=== PATIENT | male | born 1955 | race Caucasian/White ===

== ENCOUNTER 2020-05-30 07:58 | Outpatient (CLI) | payer MEDICARE, SELFPAY ==
[2020-05-30 08:35] LABS: Alanine Aminotransferase 11 U/L (4-50); Albumin Level 4.7 g/dL (3.5-5.1); Alkaline Phosphatase 101 U/L (38-126); Anion Gap 5 mmol/L (8-16); Aspartate Amino Transferase 26 U/L (17-59); Bilirubin,Total 0.9 mg/dL (0.2-1.3); Blood Urea Nitrogen 13 mg/dL (9-20); Calcium 9.5 mg/dL (8.4-10.2); Carbon Dioxide 31 mmol/L (22-30); Chloride 101 mmol/L (98-107); Cholesterol 233 mg/dL (0-200); Estimated Glomerular Filt Rate > 60; Glucose 126 mg/dL (75-110); HDL Direct 60 mg/dL; Potassium 4.2 mmol/L (3.4-5.0); Sodium 137 mmol/L (137-145); Triglycerides 105 mg/dL (<150)
[2020-05-30 08:39] LABS: Hemoglobin A1C 5.6 % (<5.7)
[2020-05-30 08:45] LABS: LDL Cholesterol Direct 149 mg/dL
== END 2020-05-30 07:59 | disposition home or self-care (01) ==
PROVIDERS: PCP Emergency Medicine; Visit Provider Emergency Medicine
DX: E78.5 Hyperlipidemia, unspecified (principal); E11.9 Type 2 diabetes mellitus without complications
CPT/HCPCS: 36415; 80053; 80061; 83036

== ENCOUNTER 2021-01-02 07:04 | Outpatient (CLI) | payer MEDICARE, SELFPAY ==
[2021-01-02 07:56] LABS: Hemoglobin A1C 5.8 % (<5.7)
[2021-01-02 08:13] LABS: Alanine Aminotransferase 12 U/L (4-50); Alkaline Phosphatase 71 U/L (38-126); Anion Gap 2 mmol/L (8-16); Aspartate Amino Transferase 24 U/L (17-59); Bilirubin,Total 0.4 mg/dL (0.2-1.3); Blood Urea Nitrogen 17 mg/dL (9-20); Carbon Dioxide 33 mmol/L (22-30); Chloride 101 mmol/L (98-107); Cholesterol 191 mg/dL (0-200); Estimated Glomerular Filt Rate > 60; Glucose 112 mg/dL (75-110); HDL Direct 46 mg/dL; Potassium 4.1 mmol/L (3.4-5.0); Sodium 136 mmol/L (137-145); Triglycerides 106 mg/dL (<150)
[2021-01-02 08:24] LABS: LDL Cholesterol Direct 132 mg/dL
[2021-01-02 08:37] LABS: Prostate Specific Antigen 2.4 ng/mL (< OR = 4.0)
== END 2021-01-02 07:05 | disposition home or self-care (01) ==
PROVIDERS: PCP Emergency Medicine; Visit Provider Emergency Medicine
DX: Z12.5 Encounter for screening for malignant neoplasm of prostate (principal); E78.5 Hyperlipidemia, unspecified; E11.9 Type 2 diabetes mellitus without complications
CPT/HCPCS: 36415; 80053; 80061; 83036; 84153; G0103

== ENCOUNTER 2021-06-14 05:59 | Emergency (ER) | payer MEDICARE, SELFPAY ==
--- NOTE | 2021-06-14 07:30 | ED.SKABFB ---
HPI - Skin/Abscess/Foreign Bdy General Chief complaint: Skin/Abscess/Foreign Body Stated complaint: raised area on chest Time Seen by Provider: 06/14/21 07:00 History of Present Illness HPI narrative: Patient is a 65-year-old male who presents the ER with a lump to the center of his chest. Reports it is fluid-filled. Nonpainful. He has tried drying out the fluid with spread and poking it with a needle. No fevers or chills or sweats. It started after he was in the [place] and was covered in chigger bites. She is concerned that chigger may actually be inside his chest. Related Data Allergies Allergy/AdvReac Type Severity Reaction Status Date / Time Penicillins Allergy Unknown Verified 08/31/19 14:47 Review of Systems Constitutional: Constitutional: Denies chills and Denies fever(s) Musculoskeletal: Musculoskeletal: Denies arthralgias, Denies joint swelling and Denies muscle cramps Integumentary/Breasts: Skin/Breast: Reports erythema and Denies rash Comments: Abscess PMFSH Past Medical History Medical History (Updated 06/14/21 @ 08:05 by Dannie Martines MD) Hyperglycemia Hypertension Surgical History Surgical History (Updated 06/14/21 @ 07:35 by Dannie Martines MD) History of orthopedic surgery Right upper extremity reconstruction Family History Family History Mother Family history of diabetes mellitus in first degree relative Social History Social History Smoking status: Former smoker Alcohol intake: current Exam Narrative: GENERAL: Well-appearing, well-nourished, and in no acute distress. HEAD: Normocephalic, atraumatic. CHEST: Clear to auscultation. No respiratory distress. HEART: Regular rate and rhythm. Normal peripheral pulses. EXTREMITIES: Chronic deformity RUE with decreased ROM at elbow and thumb from previous trauma/surgery. No edema. SKIN: Warm, dry. 1.5 x 1.5 abscess center chest that is fluctuant without significant surrounding cellulitis. NEURO: Alert and oriented x3. PSYCH: Normal mood and affect. Procedures Abscess I/D chest: Date of Incision: 06/14/21 Time of Incision: 07:58 Local Anesthetic: lidocaine 1% and with epi Amount of anesthesia used (mL): 2 Technique: incised with #11 blade Irrigation: No Packing used?: iodoform I&D Results: Pus Discharge Plan Discharge Clinical Impression: Abscess Patient Disposition: Home, Self-Care Condition: Stable Instructions: Abscess (ED) Additional Instructions: Return the ER if you have fever over 100.4 ?F, you have worsening infection, you cannot keep down food or water, you have additional concerns. Remove your packing in 2 days. Prescriptions: New doxycycline monohydrate 100 mg capsule 100 mg PO BID Qty: 14 RF: 0 No Action metoprolol succinate 25 mg tablet extended release 24 hr 25 mg PO DAILY Qty: 90 RF: 2 lisinopril-hydrochlorothiazide 20-12.5 mg tablet See Rx Instructions .ROUTE .COMPLEX Qty: 180 RF: 2 Follow-up/Referrals: Zia Francisco MD [Primary Care Provider] -
[2021-06-14] MEDS: LIDO 1%/EPINEPHRINE 1:100,000 10 ML VIAL 3 ML INFILTRATE (07:43)
== END 2021-06-14 08:14 | disposition home or self-care (01) ==
PROVIDERS: Emergency Provider Emergency Medicine; PCP Emergency Medicine
DX: L02.213 Cutaneous abscess of chest wall (principal); I10 Essential (primary) hypertension; Z87.891 Personal history of nicotine dependence
CPT/HCPCS: 10061; 99283

== ENCOUNTER 2021-07-30 06:57 | Outpatient (CLI) | payer MEDICARE, SELFPAY ==
[2021-07-30 07:53] LABS: Alanine Aminotransferase 11 U/L (4-50); Albumin Level 4.5 g/dL (3.5-5.1); Alkaline Phosphatase 79 U/L (38-126); Anion Gap 7 mmol/L (8-16); Aspartate Amino Transferase 21 U/L (17-59); Bilirubin,Total 0.8 mg/dL (0.2-1.3); Blood Urea Nitrogen 15 mg/dL (9-20); Calcium 9.9 mg/dL (8.4-10.2); Carbon Dioxide 31 mmol/L (22-30); Chloride 100 mmol/L (98-107); Estimated Glomerular Filt Rate > 60; Glucose 124 mg/dL (65-110); Potassium 4.1 mmol/L (3.4-5.0); Sodium 138 mmol/L (137-145)
[2021-07-30 07:56] LABS: Hemoglobin A1C 5.6 % (<5.7)
== END 2021-07-30 06:58 | disposition home or self-care (01) ==
PROVIDERS: PCP Emergency Medicine; Visit Provider Emergency Medicine
DX: I10 Essential (primary) hypertension (principal); R73.9 Hyperglycemia, unspecified
CPT/HCPCS: 36415; 80053; 83036

== ENCOUNTER 2021-12-31 00:19 | Day surgery (SDC) | payer MEDICARE, SELFPAY ==
[2021-12-17 09:14] VITALS: BMI 25.5
[2021-12-31 07:45] VITALS: BP 140/84; PULSE 78; RESP 20; TEMP 36.6; O2SAT 99; BMI 24.7
[2021-12-31] MEDS: LACTATED RINGERS 1,000 ML 150 ML IV CONT (07:53)
--- NOTE | 2021-12-31 08:07 | P.PNAN_ITS ---
Anes - Initial Pre Proc Eval Procedure: Operation Date: 12/31/21 08:30 Proposed Procedures p Screening Colonoscopy - Brad Villeda MD Date/Time: 12/31/21 08:07 Surgeon: Brad Villeda MD Pre Op Diagnosis: hx of colon polyps, family hx of colon ca Patient Data Age: 66 Gender: M Height: 1.7 m Weight: 71.5 kg Last Vital Signs Temp 36.6 C 12/31/21 07:45 Pulse 78 12/31/21 07:45 Resp 20 12/31/21 07:45 BP 140/84 12/31/21 07:45 Pulse Ox 99 12/31/21 07:45 Allergies Allergy/AdvReac Type Severity Reaction Status Date / Time Penicillins Allergy Unknown Anaphylaxis Verified 12/31/21 07:44 Home Medications Medication Instructions Recorded Confirmed Type sodium,potassium,mag sulfates 17.5 See Rx Instructions PO .COMPLEX 11/23/21 Rx gram-3.13 gram-1.6 gram oral soln #354 ml lisinopril-hydrochlorothiazide 2 tablet PO DAILY 12/17/21 12/17/21 History metoprolol succinate 25 mg 25 mg PO DAILY #90 tablet 12/25/21 12/31/21 Rx tablet,extended release 24 hr Patient hx anesthesia problems: none Family hx anesthesia problems: none Results Review: All pre-operative results and documents have been reviewed as part of the pre-operative evaluation. [facility] Past Medical History Medical History Hyperglycemia Hypertension Surgical History Surgical History History of orthopedic surgery Right upper extremity reconstruction Family History Family History Mother Family history of diabetes mellitus in first degree relative Sibling Carcinoma of colon Uterine cancer Social History Social History (Updated 12/31/21 @ 08:09 by Sylvester Sanchez MD) Smoking status: Former smoker Tobacco type: cigarettes Smoking end date: 08/15/02 Alcohol intake: former Substance use: current Substance use type: marijuana Other substance usage details: 3x weekly Living arrangements: with family Spiritual care concerns: No Anes - Eval Final PreProcedure Day of Procedure 12/31/21 08:07 Patient weight: normal Heart: regular rate and rhythm Lungs: clear to auscultation Airway: Mallampati scale class II Neurological: alert and oriented Last oral intake: >/= 8 hours ASA classification: II Emergent: no Anesthetic plan: proceed Anesthesia type and monitoring: general GIVS and standard monitoring Results Review: All pre-operative results and documents have been reviewed as part of the pre-operative evaluation. Informed Consent: The patient's anesthetic plan and its attendant risks and benefits were discussed with the patient/family/POA. Questions were solicited and answers provided to the satisfaction of the patient/family/POA.
--- NOTE | 2021-12-31 08:30 | WPDGICN ---
Assessment and Plan Assessment and plan (1) History of colon polyps: Code(s): Z86.010 - Personal history of colonic polyps Status: Acute Assessment and Plan: Patient has a prior history of adenomatous colon polyp removed from the colon 2015. Plan is for surveillance colonoscopy now and at 5 year intervals in the future. (2) Family hx of colon cancer: Code(s): Z80.0 - Family history of malignant neoplasm of digestive organs Status: Acute Assessment and Plan: Patient's sister had colon cancer for this reason continued surveillance of patient's colonoscopy is advised a 5 year intervals. GI Consult Note Consult date/time: 12/31/21 08:30 HPI: Giancarlo Clark Jr. is a 66 year old male Presents for screening colonoscopy. Patient's family history is significant that his sister had colon cancer. Patient reports a prior history of colon polyps most recently 2015. He presents today for screening colonoscopy. Patient's current weight appetite and bowel movements are normal. Patient denies abdominal pain. He has had no bleeding. He presents today for screening exam. Review of Systems Review of Systems: All systems reviewed & are unremarkable except as noted in HPI and below PMFSH Past Medical History Medical History Hyperglycemia Hypertension Surgical History Surgical History History of orthopedic surgery Right upper extremity reconstruction Family History Family History Mother Family history of diabetes mellitus in first degree relative Sibling Carcinoma of colon Uterine cancer Social History Social History (Updated 12/31/21 @ 08:09 by Sylvester Sanchez MD) Smoking status: Former smoker Tobacco type: cigarettes Smoking end date: 08/15/02 Alcohol intake: former Substance use: current Substance use type: marijuana Other substance usage details: 3x weekly Living arrangements: with family Spiritual care concerns: No Meds Home Medications and Allergies Home Medications Medication Instructions Recorded Confirmed Type sodium,potassium,mag sulfates 17.5 See Rx Instructions PO .COMPLEX 11/23/21 Rx gram-3.13 gram-1.6 gram oral soln #354 ml lisinopril-hydrochlorothiazide 2 tablet PO DAILY 12/17/21 12/17/21 History metoprolol succinate 25 mg 25 mg PO DAILY #90 tablet 12/25/21 12/31/21 Rx tablet,extended release 24 hr Allergies Allergy/AdvReac Type Severity Reaction Status Date / Time Penicillins Allergy Unknown Anaphylaxis Verified 12/31/21 07:44 Vital Signs Vital Signs - 24 hr 12/31/21 07:45 Temperature 97.9 F Pulse Rate 78 Respiratory Rate 20 Blood Pressure 140/84 Pulse Oximetry 99 Exam Narrative: Physical exam reveals patient to be alert. Vital signs stable. HEENT exam is unremarkable. Patient is anicteric. Lungs are clear to auscultation and percussion. Heart is without murmur or extra sounds. Abdominal exam bowel sounds present soft nontender with no organomegaly. Digital external rectal exam is normal.
[2021-12-31 09:05] VITALS: BP 80/48; PULSE 69; RESP 21; O2SAT 95
[2021-12-31 09:15] VITALS: BP 82/48; PULSE 65; RESP 19; O2SAT 96
[2021-12-31 09:25] VITALS: BP 120/75; PULSE 74; RESP 25; O2SAT 100
== END 2021-12-31 09:34 | disposition home or self-care (01) ==
PROVIDERS: PCP Emergency Medicine; Visit Provider Internal Medicine Gastroenterology
PROC: 0DJD8ZZ Inspection of Lower Intestinal Tract, Via Natural or Artificial Opening Endoscopic (ICD-10-PCS; CPT 45378; principal; 2021-12-31 08:30)
DX: Z12.11 Encounter for screening for malignant neoplasm of colon (principal); D12.5 Benign neoplasm of sigmoid colon; K63.5 Polyp of colon; K64.8 Other hemorrhoids; Z80.0 Family history of malignant neoplasm of digestive organs; I10 Essential (primary) hypertension; Z87.891 Personal history of nicotine dependence; F12.90 Cannabis use, unspecified, uncomplicated
CPT/HCPCS: 45385; 88305; J2704; J7120

== ENCOUNTER 2022-09-30 12:06 | Outpatient (CLI) | payer MEDICARE, SELFPAY ==
--- NOTE | ~2022-09-30 | US_ITS ---
US renal BI 09/30/2022 12:59 Procedure: Realtime transabdominal ultrasound of the kidneys and bladder. Indication: Dysuria Comparison: Dysuria Findings: Renal echotexture is normal bilaterally without hydronephrosis, contour deforming mass or r enal calculus. The right kidney measures 10.8 cm and left kidney measures 11.5 cm cm. Bladder within normal limits. Bilateral ureteral jets are visualized. Prostate gland is enlarged. Impression: 1: Unremarkable renal ultrasound. No stones, masses or hydronephrosis. Reviewed, dictated and finalized at location A. [employer] Impression: 1: Unremarkable renal ultrasound. No stones, masses or hydronephrosis.
== END 2022-09-30 12:07 | disposition home or self-care (01) ==
PROVIDERS: PCP Emergency Medicine; Visit Provider Nurse Practitioner
DX: R30.0 Dysuria (principal)
CPT/HCPCS: 76775

== ENCOUNTER 2023-05-18 04:37 | Emergency (ER) | payer MEDICARE, SELFPAY ==
--- NOTE | ~2023-05-18 | XR_ITS ---
EXAMINATION: XR forearm RT 2V INDICATION: Right forearm pain TECHNIQUE: Two views of the right forearm are obtained. COMPARISON: None available FINDINGS: There are old healed fractures of the distal radius and ulna. 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 No definite acute fracture is identified. IMPRESSION: 1. Prior fractures as detailed above without acute osseous abnormality identified. Reviewed, dictated and finalized at location A. IMPRESSION: 1. Prior fractures as detailed above without acute osseous abnormality identifi ed.
--- NOTE | ~2023-05-18 | XR_ITS ---
EXAMINATION: XR elbow RT min 3V INDICATION: Right elbow pain TECHNIQUE: Three views of the right elbow are obtained. COMPARISON: None available FINDINGS: There is marked, chronic appearing deformity of the elbow. There is a chronic fracture of t he medial condyle of the distal humerus with nonunion. There is heterotopic bone formation near the d istal humerus and proximal ulna. There is moderate to severe osteoarthritis. No definite acute fractu re is identified. IMPRESSION: 1. 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 Chronic appearing defo rmity of the elbow without acute osseous abnormality identified. Reviewed, dictated and finalized at location A. IMPRESSION: 1. 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 Chronic appearing deformity of the elbow without acute osseous abnormality iden tified.
[2023-05-18 04:41] VITALS: BP 193/84; PULSE 80; RESP 19; TEMP 36.4; O2SAT 99
[2023-05-18] MEDS: HYDROcodone/acetaminophen (*CRX) 5-325 MG TABLET 1 TAB PO (07:54)
--- NOTE | 2023-05-18 08:30 | ED.GENADULT ---
HPI - General Adult General Chief complaint: Extremity Injury, Upper Stated complaint: Right arm injury Time Seen by Provider: 05/18/23 07:01 History of Present Illness HPI narrative: Patient is a 67-year-old male who presents ER with right elbow injury. Patient tripped over a hose last night and fell forward onto his arms bilaterally. Patient has history of chronic deformity of the right arm due to a previous workplace injury. He has new pain and swelling to his right elbow. He is unable to perform supination and pronation without pain. No numbness or tingling. He did not strike his head or lose consciousness. Related Data Allergies Allergy/AdvReac Type Severity Reaction Status Date / Time Penicillins Allergy Unknown Anaphylaxis Verified 05/18/23 04:44 Review of Systems Constitutional: Constitutional: Reports no additional constitutional complaints Musculoskeletal: Musculoskeletal: Denies back pain, Denies myalgias, Reports arthralgias, Reports joint swelling and Denies muscle cramps Integumentary/Breasts: Skin/Breast: Reports system reviewed and no additional complaints, except as docu Neurologic: Reports system reviewed and no additional complaints, except as documented PMFSH Past Medical History Medical History Hyperglycemia Hypertension Surgical History Surgical History History of orthopedic surgery Right upper extremity reconstruction Family History Family History Mother Family history of diabetes mellitus in first degree relative Sibling Carcinoma of colon Uterine cancer Social History Social History (Updated 12/31/21 @ 08:09 by Sylvester Sanchez MD) Smoking status: Former smoker Tobacco type: cigarettes Smoking end date: 08/15/02 Alcohol intake: former Substance use: current Substance use type: marijuana Other substance usage details: 3x weekly Living arrangements: with family Spiritual care concerns: No Exam Narrative: GENERAL: Well-appearing, well-nourished, and in no acute distress. HEAD: Normocephalic, atraumatic. ENT: Mucous membranes moist. HEART: Regular rate and rhythm. Normal peripheral pulses. EXTREMITIES: Right upper extremity exam with tenderness at the radial head and posterior olecranon region. Mild edema. There is diffuse scarring from previous surgeries. Patient reports his range of motion at the elbow is always limited. Unable to fully extend at the elbow and cannot perform supination/pronation due to pain and limited mobility. SKIN: Warm, dry, no rash. NEURO: No numbness right upper extremity. Alert and oriented x3. PSYCH: Normal mood and affect. Course Vital Signs Vital signs: Vital Signs Temperature 97.5 F L 05/18/23 04:41 Pulse Rate 80 05/18/23 04:41 Respiratory Rate 19 05/18/23 04:41 Blood Pressure 193/84 H 05/18/23 04:41 Pulse Oximetry 99 05/18/23 04:41 Oxygen Delivery Room Air 05/18/23 04:41 Temperature 97.5 F L 05/18/23 04:41 Pulse Rate 80 05/18/23 04:41 Respiratory Rate 19 05/18/23 04:41 Blood Pressure 193/84 H 05/18/23 04:41 Pulse Oximetry 99 05/18/23 04:41 Oxygen Delivery Room Air 05/18/23 04:41 Medical Decision Making [facility] Narrative Medical decision making narrative: -Presentation: 67-year-old male with right elbow pain -DDX includes but is not limited to: Fracture, sprain, joint effusion -Co-morbidities complicating care: Previous surgical pair to the affected extremity -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 -Discussion of Management/Consultants: none -Dx tests considered but not ordered: none -Procedures: none -Interventions: Sling, Locust. -Share
[2023-05-18 09:53] VITALS: BP 164/88; PULSE 82; RESP 16; TEMP 36.8; O2SAT 98
== END 2023-05-18 09:54 | disposition home or self-care (01) ==
PROVIDERS: Emergency Provider Emergency Medicine; PCP Emergency Medicine
DX: S53.401A Unspecified sprain of right elbow, initial encounter (principal); I10 Essential (primary) hypertension; Z87.891 Personal history of nicotine dependence; S42.461 Displaced fracture of medial condyle of right humerus; X58.XXXD Exposure to other specified factors, subsequent encounter; W18.09XA Striking against other object with subsequent fall, initial encounter
CPT/HCPCS: 73080; 73090; 99283; A4565; A9270

== ENCOUNTER 2023-11-13 09:22 | Outpatient (CLI) | payer MEDICARE, SELFPAY ==
[2023-11-13 10:24] LABS: Alanine Aminotransferase 13 U/L (6-50); Albumin Level 4.4 g/dL (3.5-5.1); Alkaline Phosphatase 83 U/L (38-126); Anion Gap 4 mmol/L (8-16); Aspartate Amino Transferase 24 U/L (17-59); Bilirubin,Total 0.8 mg/dL (0.2-1.3); Blood Urea Nitrogen 13 mg/dL (9-20); Calcium 9.3 mg/dL (8.4-10.2); Carbon Dioxide 32 mmol/L (22-30); Chloride 104 mmol/L (98-107); Cholesterol 220 mg/dL (0-200); Estimated Glomerular Filt Rate > 60; Glucose 100 mg/dL (65-110); HDL Direct 56 mg/dL; Potassium 3.6 mmol/L (3.4-5.0); Sodium 140 mmol/L (137-145); Triglycerides 100 mg/dL (<150)
[2023-11-13 10:35] LABS: LDL Cholesterol Direct 142 mg/dL
[2023-11-13 10:53] LABS: Prostate Specific Antigen 3.7 ng/mL (< OR = 4.0)
[2023-11-13 11:00] LABS: Vitamin D 25 Hydroxy 33.1 ng/mL
== END 2023-11-13 09:23 | disposition home or self-care (01) ==
PROVIDERS: PCP Emergency Medicine; Visit Provider Emergency Medicine
DX: Z12.5 Encounter for screening for malignant neoplasm of prostate (principal); I10 Essential (primary) hypertension; R73.9 Hyperglycemia, unspecified; E55.9 Vitamin D deficiency, unspecified
CPT/HCPCS: 36415; 80053; 80061; 82306; 84153; G0103

== ENCOUNTER 2024-09-17 10:34 | Emergency (ER) | payer MEDICARE, SELFPAY ==
[2024-09-17 10:42] VITALS: BP 163/75; PULSE 76; RESP 16; TEMP 36.4; O2SAT 99
--- NOTE | 2024-09-17 12:41 | ED.EAR ---
HPI - Ear Problem General Chief complaint: Ear Stated complaint: R ear pain/swelling Time Seen by Provider: 09/17/24 10:45 History of Present Illness HPI Narrative: 69-year-old male presents to the emergency department for swelling and pain to his right earlobe for 3 days. Patient states he felt a small knot in his earlobe and then began rubbing it and became inflamed and larger. He denies fever, other injury or trauma. Related Data Allergies Allergy/AdvReac Type Severity Reaction Status Date / Time Penicillins Allergy Unknown Anaphylaxis Verified 09/17/24 11:14 Review of Systems Review of Systems: All systems reviewed & are unremarkable except as noted in HPI and below PMFSH Past Medical History Medical History Metabolic syndrome Encounter for screening for cardiovascular disorders Acute midline low back pain with left-sided sciatica Hyperglycemia Hypertension Surgical History Surgical History History of bilateral knee replacement History of orthopedic surgery Right upper extremity reconstruction Family History Family History Mother Family history of diabetes mellitus in first degree relative Sibling Carcinoma of colon Uterine cancer Social History Social History Smoking status: Former smoker Tobacco type: cigarettes Smoking end date: 08/15/02 Alcohol intake: former Substance use: current Substance use type: marijuana Other substance usage details: 3x weekly Lack of Transportation: No Lack of Food: Never True Current Housing: I Have Housing Concerned About Future Housing: No Difficulty Paying Gas/Electric Bills: No Difficulty Paying for Meds: No Currently Unemployed: No Education: Bachelor's Degree Difficulty w/ Childcare or Family Care: No Living arrangements: with family Spiritual care concerns: No Exam Narrative: GENERAL: Well-appearing, well-nourished, and in no acute distress. HEAD: Normocephalic, atraumatic. EYES: PERRLA and EOMI. ENT: Nares clear, no rhinorrhea or epistaxis. Mucous membranes moist. Right ear lobe edematous and fluctuant with overlying erythema, no spontaneous drainage. No extension into the cartilage or auricle. NECK: Supple. CHEST: Clear to auscultation. No respiratory distress. HEART: Regular rate and rhythm. No murmur heard. Normal peripheral pulses. EXTREMITIES: Normal range of motion. No edema. SKIN: Warm, dry, no rash. NEURO: No focal deficits. Alert and oriented x3 Course Vital Signs Vital signs: Vital Signs Temperature 97.6 F 09/17/24 10:42 Pulse Rate 76 09/17/24 10:42 Respiratory Rate 16 09/17/24 10:42 Blood Pressure 163/75 H 09/17/24 10:42 Pulse Oximetry 99 09/17/24 10:42 Temperature 97.6 F 09/17/24 10:42 Pulse Rate 76 09/17/24 10:42 Respiratory Rate 16 09/17/24 10:42 Blood Pressure 163/75 H 09/17/24 10:42 Pulse Oximetry 99 09/17/24 10:42 Procedures Abscess I/D other: Date of Incision: 09/17/24 Time of Incision: 12:46 Side (if applicable): right Local Anesthetic: lidocaine 1% Amount of anesthesia used (mL): 5 Technique: incised with #11 blade Amount of fluid expressed (mL): 5 Packing used?: none I&D Results: Pus and Blood Medical Decision Making MDM Narrative Medical decision making narrative: 69-year-old male presents to the emergency department for swelling and pain to the right ear lobe. Vitals of elevated blood pressure, otherwise unremarkable. Exam is significant for an enlarged and fluctuant your lobe with tenderness. There is no extension of fluctuance or erythema into the auricle or cartilage. The entirety of the infection is localized to the lobe itself. Local lidocaine applied and area I and D with successful drainage of purulence, loculations improved and broken up. Patient was started on doxycycline and advised to follow-up with his PCP. Return precautions were discussed. He is agreeable with the plan verbalized understanding. Discharged in stable condition. Vital Signs Vital Signs: Vital Signs Temperature 97.6 F 09/17/24 10:42 Pulse Rate 76 09/17/24 10:42 Respiratory Rate 16 09/17/24 10:42 Blood Pressure 163/75 H 09/17/24 10:42 Pulse Oximetry 99 09/17/24 10:42 Temperature 97.6 F 09/17/24 10:42 Pulse Rate 76 09/17/24 10:42 Respiratory Rate 16 09/17/24 10:42 Blood Pressure 163/75 H 09/17/24 10:42 Pulse Oximetry 99 09/17/24 10:42 Discharge Plan Discharge Clinical Impression: Abscess Patient Disposition: Home, Self-Care Condition: Stable Instructions: Antibiotic Form, Abscess (ED) Additional Instructions: Take antibiotics as directed. Follow-up with primary care provider. Return to the emergency department if your ear swells again, you develop a fever, worsening pain or other concerning symptoms. Take Tylenol and ibuprofen as needed for pain as directed on the bottle [id number]. Patient Language: Vietnamese Prescriptions: New doxycycline hyclate 100 mg capsule 100 mg PO DAILY Qty: 14 0RF No Action metoprolol succinate 50 mg tablet extended release 24 hr 50 mg PO DAILY Qty: 90 2RF tadalafil 5 mg tablet 5 mg PO DAILY Qty: 90 2RF naproxen 375 mg tablet 375 mg PO BID Qty: 14 0RF lisinopril-hydrochlorothiazide 20-12.5 mg tablet See Rx Instructions .ROUTE .COMPLEX Qty: 180 2RF Dose Instruction: Take 2 tablets by mouth once daily Rx Instructions: Take 2 tablets by mouth once daily Follow-up/Referrals: Zia Francisco MD [Primary Care Provider] -
[2024-09-17] MEDS: DOXYCYCLINE HYCLATE 100 MG TABLET PO (12:51)
[2024-09-17 12:54] VITALS: BP 166/97; PULSE 61; RESP 16; TEMP 36.7; O2SAT 100
== END 2024-09-17 12:56 | disposition home or self-care (01) ==
PROVIDERS: Emergency Provider Physician Assistant; PCP Emergency Medicine
DX: L02.811 Cutaneous abscess of head [any part, except face] (principal); I10 Essential (primary) hypertension
CPT/HCPCS: 10060; 87070; 87075; 87205; 99283; A9270

== ENCOUNTER 2024-11-19 15:17 | Outpatient (CLI) | payer MEDICARE, SELFPAY ==
--- OUTSIDE RECORDS SUMMARY | 2024-11-19 15:22 | XMS_ITS | Encounter Summary ---
Author Organization [facility] Address 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 Gender Identity Not on file Sexual Orientation Not on file documented as of this encounter Plan of Treatment Not on file documented as of this encounter Procedures Procedure Name Priority Date/Time Associated Diagnosis Comments HEMOGLOBIN AND HEMATOCRIT Routine 01/10/2008 5:54 AM CDT HEMOGLOBIN AND HEMATOCRIT Routine 12/25/2007 10:57 AM CDT BASIC METABOLIC PANEL Routine 12/25/2007 10:57 AM CDT documented in this encounter Results * (ABNORMAL) HEMOGLOBIN AND HEMATOCRIT (01/10/2008 5:54 AM CDT) HEMATOCRIT 28.8(L) 40.0 - 48.0 % [facility] HEMOGLOBIN 9.3(L) 13.6 - 16.5 g/dL [facility] Blood specimen (specimen) 01/10/2008 5:54 AM CDT 01/10/2008 7:00 AM CDT us Govind Sotelo MD HEMATOLOGY ORDERABLES Final Result [facility] [address] [place] [address] * HEMOGLOBIN AND HEMATOCRIT (12/25/2007 10:57 AM CDT) HEMATOCRIT 46.3 40.0 - 48.0 % [facility] HEMOGLOBIN 15.6 13.6 - 16.5 g/dL [facility] Blood specimen (specimen) 12/25/2007 10:57 AM CDT 12/25/2007 11:58 AM CDT us Govind Sotelo MD HEMATOLOGY ORDERABLES Final Result [facility] [address] [place] [address] * (ABNORMAL) BASIC METABOLIC PANEL (12/25/2007 10:57 AM CDT) CHLORIDE 100 96 - 108 mmol/L [facility] GLUCOSE 124(H) 65 - 99 mg/dL [facility] SODIUM 140 135 - 145 mmol/L [facility] CALCIUM 9.6 8.4 - 10.2 mg/dL [facility] CO2 28 22 - 30 mmol/L [facility] CREATININE 0.86 0.67 - 1.17 mg/dL [facility] POTASSIUM 3.9 3.5 - 4.9 mmol/L [facility] BUN 10 6 - 20 mg/dL [facility] GFR, >60 >=60 mL/min/1. 7 sq meter [facility] GFR >60 >=60 mL/min/1. 7 sq meter [facility] Comment: Estimated GFR rate interpretative information for both Americans and non- Americans is available on the [facility] Intranet at: [email or web address] Select: Lab Policies and Procedures Select: Reference Ranges - GFR Blood specimen (specimen) 12/25/2007 10:57 AM CDT 12/25/2007 11:58 AM CDT us Govind Sotelo MD CHEMISTRY ORDERABLES Edited [facility] [address] [place] [address] documented in this encounter Visit Diagnoses Diagnosis Osteoarthrosis, unspecified whether generalized or localized, lower leg documented in this encounter
--- OUTSIDE RECORDS SUMMARY | 2024-11-19 15:22 | XMS_ITS | Clinical Summary ---
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
--- OUTSIDE RECORDS SUMMARY | 2024-11-19 15:22 | XMS_ITS | Encounter Summary ---
Author Organization [facility] Address 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
--- OUTSIDE RECORDS SUMMARY | 2024-11-19 15:22 | XMS_ITS | Encounter Summary ---
Author Organization [facility] Address [address] [place] [address] Care Team Providers Care Analytics Analyst Name Role Phone Unavailable Primary Care Provider Unavailabl e Encounter Details Date Type Department Care Team (Latest Contact Info) Description 09/10/2007 Outpatient Historical [facility] Govind Sotelo MD NO ADDRESS ON FILE Osteoarth NOS-L/Leg Social History Tobacco Use Types Packs/Day Years Used Date Smoking Tobacco: Never Assessed Sex and Gender Information Value Date Recorded Sex Assigned at Not on file Legal Sex Male 5:12 AM MANAGER LEARNING Gender Identity Not on file Sexual Orientation Not on file documented as of this encounter Plan of Treatment Not on file documented as of this encounter Procedures Procedure Name Priority Date/Time Associated Diagnosis Comments URINALYSIS WITH REFLEX CULTURE Routine 10/11/2007 8:25 AM MANAGER LEARNING URINALYSIS W/REFLEX MICROSCOPIC Routine 10/11/2007 8:25 AM MANAGER LEARNING HEMOGLOBIN AND HEMATOCRIT Routine 10/11/2007 7:00 AM MANAGER LEARNING BASIC METABOLIC PANEL Routine 10/11/2007 7:00 AM MANAGER LEARNING HEMOGLOBIN AND HEMATOCRIT Routine 10/10/2007 5:35 AM MANAGER LEARNING HEMOGLOBIN AND HEMATOCRIT Routine 09/30/2007 9:16 AM MANAGER LEARNING documented in this encounter Results * (ABNORMAL) URINALYSIS (10/11/2007 8:25 AM MANAGER LEARNING) COLOR UA Pale Yellow INTERFAC E SYSTEM CLARITY UA Clear Clear INTERFACE SYSTEM SPECIFIC GRAVITY UA 1.005 1.001 - 1.035 INTERFACE SYSTEM PH UA 5.0 5.0 - 8.0 INTERFACE SYSTEM LEUKOCYTE ESTERASE UA Negative Negative INTERFACE SYSTEM NITRITE UA Negative Negative INTERFACE SYSTEM PROTEIN UA Negative Negative INTERFACE SYSTEM GLUCOSE UA Negative Negative INTERFACE SYSTEM KETONES UA Negative Negative INTERFACE SYSTEM UROBILINOGEN UA <1 <=1 mg/dL INTE RFACE SYSTEM BILIRUBIN UA Negative Negative INTERFA CE SYSTEM BLOOD UA 1+(A) Negative INTERFACE SYSTEM WBC UA 1 0 - 3 /HPF INTERFACE SYSTEM RBC UA 4(H) 0 - 3 /HPF INTERFACE SYSTEM 10/11/2007 8:25 AM MANAGER LEARNING us Mia Espianl MD URINE ORDERABLES Edited Performing Organization Address [facility] Phone Number INTERFACE SYSTEM Refer to clinic/hospital department * URINALYSIS WITH REFLEX CULTURE (10/11/2007 8:25 AM MANAGER LEARNING) URINE CULTURE ORDER Culture ordered INTERFACE SYSTEM Comment: Criteria for a reflex culture include one or more of the following: Abn ormal nitrite, leukocyte esterase, WBCs or RBCs. Lack of qualifying criteria does not exclude the possiblity of a urinary tract infection. Dilute urine, drug interference, etc. may decrease the sensitivity of the criteria analytes. 10/11/2007 8:25 AM MANAGER LEARNING us Mia Espinal MD URINE ORDERABLES Edited Performing Organization Address [facility] Phone Number INTERFACE SYSTEM Refer to clinic/hospital department * (ABNORMAL) BASIC METABOLIC PANEL (10/11/2007 7:00 AM MANAGER LEARNING) GLUCOSE 120(H) 65 - 99 mg/dL INTERFACE SYSTEM CREATININE 0.83 0.67 - 1.17 mg/dL INTERFACE SYSTEM CALCIUM 7.6(L) 8.4 - 10.2 mg/dL INTERFACE SYSTEM BUN 10 6 - 20 mg/dL INTERFACE SYSTEM SODIUM 135 135 - 145 mmol/L INTERFACE SYSTEM POTASSIUM 4.2 3.5 - 4.9 mmol/L INTERFACE SYSTEM CHLORIDE 103 96 - 108 mmol/L INTERFACE SYSTEM CO2 29 22 - 30 mmol/L INTERFACE SYSTEM GFR, >60 >=60 mL/min/1. 7 sq meter INTERFACE SYSTEM GFR >60 >=60 mL/min/1. 7 sq meter INTERFACE SYSTEM Comment: Estimated GFR rate interpretative information for both Americans and non- Americans is available on the [facility] Intranet at: [email or web address] Select: Lab Policies and Procedures Select: Reference Ranges - GFR 10/11/2007 7:00 AM MANAGER LEARNING us Mia Espinal MD CHEMISTRY ORDERABLES Edited Performing Organization Address [facility] Phone Number INTERFACE SYSTEM Refer to clinic/hospital department * (ABNORMAL) HEMOGLOBIN AND HEMATOCRIT (10/11/2007 7:00 AM MANAGER LEARNING) HEMOGLOBIN 8.9(L) 13.6 - 16.5 g/dL INTERFACE SYSTEM HEMATOCRIT 26.4(L) 40.0 - 48.0 % INTERFACE SYSTEM 10/11/2007 7:00 AM MANAGER LEARNING Result Andria Sotelo MD HEMATOLOGY ORDERABLES Edited Performing Organization Address [facility] Phone Number INTERFACE SYSTEM Refer to clinic/hospital department * (ABNORMAL) HEMOGLOBIN AND HEMATOCRIT (10/10/2007 5:35 AM MANAGER LEARNING) HEMOGLOBIN 9.0(L) 13.6 - 16.5 g/dL INTERFACE SYSTEM HEMATOCRIT 27.3(L) 40.0 - 48.0 % INTERFACE SYSTEM 10/10/2007 5:35 AM MANAGER LEARNING Result Andria Sotelo MD HEMATOLOGY ORDERABLES Edited Performing Organization Address [facility] Phone Number INTERFACE SYSTEM Refer to clinic/hospital department * HEMOGLOBIN AND HEMATOCRIT (09/30/2007 9:16 AM MANAGER LEARNING) HEMOGLOBIN 14.3 13.6 - 16.5 g/dL INTERFACE SYSTEM HEMATOCRIT 41.4 40.0 - 48.0 % INTERFACE SYSTEM 09/30/2007 9:16 AM MANAGER LEARNING Result Andria Sotelo MD HEMATOLOGY ORDERABLES Edited Performing Organization Address [facility] de Phone Number INTERFACE SYSTEM Refer to clinic/hospital department documented in this encounter Visit Diagnoses Diagnosis Osteoarthrosis, unspecified whether generalized or localized, lower leg documented in this encounter
--- OUTSIDE RECORDS SUMMARY | 2024-11-19 15:22 | XMS_ITS | Continuity of Care Document ---
Author Organization [facility] Address [address] [place] [address] [place] [address] Phone Care Team Providers Care Facing Grinder Name Role Phone Poncho Amin Unavailable Unavailable [...] Diagnoses Date Provider Providers Copied on Encounter [facility], [address] [place] [address] [address], [place], [place], [id number], [place] tel:[phone] [facility] No Information 201 0 Eloisa Isaac. [address] [facility], [place], [address], [place]. tel:[phone] Referring Provider: Derick Bush [facility] [address], [place], [address]. tel:[phone] [facility], [address] [place] [address] [address], [place], [place], [id number], [place] tel:[phone] [facility] No Information Oct-0 5-201 0 Eloisa Isaac. [address] [facility] [address] , [address], [place], [place], [facility], . tel:[phone] Referring Provider: Poncho Wren, [address] [facility], [place], [facility]. tel:[phone] Office/outpat ient Visit, [facility], [address] [place] [address] [address], [place], [place], [id number], [place] tel:[phone] [facility] No Information Aug-2 3-201 0 Eloisa Isaac. [address] [facility] [address], [address], [place], [facility], [place]. tel:[phone] Office/outpat ient Visit, [facility], [address] [place] [address] [address], [place], [place], [id number], [place] tel:[phone] [facility] No Information January-2 0-200 9 Eloisa Isaac. [address] [place], [place] [address]ate [address], [address], [place], [facility], [place]. tel:[phone] Office/outpat ient Visit, [facility], [address] [place] [address] [address], [place], [place], [id number], [place] tel:[phone] [facility] No Information Mar-0 7-200 8 Eloisa Isaac. [address] [facility] [address], [address], [place], [facility], [place]. tel:[phone] [facility], [address] [place] [address] [address], [place], [place], [id number], [place] tel:[phone] [facility] No Information Charles-2 3-200 8 Eloisa Isaac. [address] [facility] [address], [address], [place], [facility], [place]. tel:[phone] [facility], [address] [place] [address] [address], [place], [place], [id number], tel:[phone] [facility] No Information 8 Eloisa Isaac. [facility] , [address], [place], [facility], . tel:[phone] [facility], [address] [place] [address] [address], [place], [place], [id number], tel:[phone] [facility] No Information 8 Eloisa Isaac. [address] [place], [place] [address]ate [address], [address], [place], [facility], . tel:[phone] Office/outpat ient Visit, [facility], [address] [place] [address] [address], [place], [place], [id number], tel:[phone] [facility] No Information 200 7 Eloisa Isaac. [address] [place], [place] [address]ate [address], [address], [place], [facility], . tel:[phone] Referring Provider: Poncho Wren, [address] [place], [place] [address], [place], [facility]. tel:[phone] [facility], [address] [place] [address] [address], [place], [place], [id number], tel:[phone] [facility] No Information 0 200 7 Cortez OD Brad. [address] [place], [place] [address]ate [address], [address], [place], [facility], . tel:[phone] Family History Family Member Type Diagnosis Age At Onset No Information Payers Payer name Insurance type Covered democrat ID Authoriza tion(s) [place] [id number] Social History Type Description Quantity Date Captured [...]
--- OUTSIDE RECORDS SUMMARY | 2024-11-19 15:22 | XMS_ITS | Encounter Summary ---
Author Organization [facility] Address 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
--- OUTSIDE RECORDS SUMMARY | 2024-11-19 15:22 | XMS_ITS | CONTINUITY OF CARE DOCUMENT ---
Author Name jevon escoto Address Unknown Organization [facility] Address [id number] [place] [address] [address] [place] [address] Phone [phone] Care Team Providers Care Manager Adult Name Role Phone jevon escoto Unavailable Unavailable INSURANCE PROVIDERS Payer name Policy type / Coverage type [place] red constitution party ID [facility] [id number]
[2024-11-19 16:24] LABS: Alanine Aminotransferase 12 U/L (6-50); Albumin Level 4.3 g/dL (3.5-5.1); Alkaline Phosphatase 83 U/L (38-126); Anion Gap 10 mmol/L (4-12); Aspartate Amino Transferase 22 U/L (17-59); Bilirubin,Total 0.7 mg/dL (0.2-1.3); Blood Urea Nitrogen 16 mg/dL (9-20); Carbon Dioxide 27 mmol/L (22-30); Chloride 102 mmol/L (98-107); Estimated Glomerular Filt Rate > 60; Glucose 114 mg/dL (65-110); Potassium 3.8 mmol/L (3.4-5.0); Sodium 139 mmol/L (137-145)
[2024-11-19 16:41] LABS: Vitamin D 25 Hydroxy 36.9 ng/mL
== END 2024-11-19 15:18 | disposition home or self-care (01) ==
PROVIDERS: PCP Emergency Medicine; Visit Provider Emergency Medicine
DX: E78.5 Hyperlipidemia, unspecified (principal); E55.9 Vitamin D deficiency, unspecified
CPT/HCPCS: 36415; 80053; 82306

== ENCOUNTER 2024-11-29 10:05 | Outpatient (CLI) | payer MEDICARE, SELFPAY ==
[2024-11-29 11:11] LABS: Hemoglobin A1C 5.7 % (<5.7)
--- OUTSIDE RECORDS SUMMARY | 2024-11-29 11:36 | XMS_ITS | Encounter Summary ---
Author Organization [facility] Address [address] [place] [address] Care Team Providers Care Alteration Inspector Name Role Phone Unavailable Primary Care Provider [...] on file Legal Sex Male 5:12 AM MEDICAL ASSISTANT OB GYN Gender Identity Not on file Sexual Orientation Not on file documented as of this encounter Plan of Treatment Not on file documented as of this encounter Procedures Procedure Name Priority Date/Time Associated Diagnosis Comments URINALYSIS WITH REFLEX CULTURE Routine 10/11/2007 8:25 AM MEDICAL ASSISTANT OB GYN URINALYSIS W/REFLEX MICROSCOPIC Routine 10/11/2007 8:25 AM MEDICAL ASSISTANT OB GYN HEMOGLOBIN AND HEMATOCRIT Routine 10/11/2007 7:00 AM MEDICAL ASSISTANT OB GYN BASIC METABOLIC PANEL Routine 10/11/2007 7:00 AM MEDICAL ASSISTANT OB GYN HEMOGLOBIN AND HEMATOCRIT Routine 10/10/2007 5:35 AM MEDICAL ASSISTANT OB GYN HEMOGLOBIN AND HEMATOCRIT Routine 09/30/2007 9:16 AM MEDICAL ASSISTANT OB GYN documented in this encounter Results * (ABNORMAL) URINALYSIS (10/11/2007 8:25 AM MEDICAL ASSISTANT OB GYN) COLOR UA Pale Yellow INTERFAC E SYSTEM [...] 3 /HPF INTERFACE SYSTEM 10/11/2007 8:25 AM MEDICAL ASSISTANT OB GYN us Mia Espinal MD URINE ORDERABLES Edited Performing Organization Address [facility] Phone Number INTERFACE SYSTEM Refer to clinic/hospital department * URINALYSIS WITH REFLEX CULTURE (10/11/2007 8:25 AM MEDICAL ASSISTANT OB GYN) URINE CULTURE ORDER Culture ordered INTERFACE SYSTEM Comment: Criteria for a reflex culture include one or more of the following: Abn ormal nitrite, leukocyte esterase, WBCs or RBCs. Lack of qualifying criteria does not exclude the possiblity of a urinary tract infection. Dilute urine, drug interference, etc. may decrease the sensitivity of the criteria analytes. 10/11/2007 8:25 AM MEDICAL ASSISTANT OB GYN us Mia Espinal MD URINE ORDERABLES Edited Performing Organization Address [facility] Phone Number INTERFACE SYSTEM Refer to clinic/hospital department * (ABNORMAL) BASIC METABOLIC PANEL (10/11/2007 7:00 AM MEDICAL ASSISTANT OB GYN) GLUCOSE 120(H) 65 - 99 mg/dL INTERFACE [...] and non- Americans is available on the [facility] Intranet at: [email or web address] Select: Lab Policies and Procedures Select: Reference Ranges - GFR 10/11/2007 7:00 AM MEDICAL ASSISTANT OB GYN us Mia Espinal MD CHEMISTRY ORDERABLES Edited Performing Organization Address [facility] Phone Number INTERFACE SYSTEM Refer to clinic/hospital department * (ABNORMAL) HEMOGLOBIN AND HEMATOCRIT (10/11/2007 7:00 AM MEDICAL ASSISTANT OB GYN) HEMOGLOBIN 8.9(L) 13.6 - 16.5 g/dL INTERFACE SYSTEM HEMATOCRIT 26.4(L) 40.0 - 48.0 % INTERFACE SYSTEM 10/11/2007 7:00 AM MEDICAL ASSISTANT OB GYN Result Andria Sotelo MD HEMATOLOGY ORDERABLES Edited Performing Organization Address [facility] Phone Number INTERFACE SYSTEM Refer to clinic/hospital department * (ABNORMAL) HEMOGLOBIN AND HEMATOCRIT (10/10/2007 5:35 AM MEDICAL ASSISTANT OB GYN) HEMOGLOBIN 9.0(L) 13.6 - 16.5 g/dL INTERFACE SYSTEM HEMATOCRIT 27.3(L) 40.0 - 48.0 % INTERFACE SYSTEM 10/10/2007 5:35 AM MEDICAL ASSISTANT OB GYN Result Andria Sotelo MD HEMATOLOGY ORDERABLES Edited Performing Organization Address [facility] Phone Number INTERFACE SYSTEM Refer to clinic/hospital department * HEMOGLOBIN AND HEMATOCRIT (09/30/2007 9:16 AM MEDICAL ASSISTANT OB GYN) HEMOGLOBIN 14.3 13.6 - 16.5 g/dL INTERFACE SYSTEM HEMATOCRIT 41.4 40.0 - 48.0 % INTERFACE SYSTEM 09/30/2007 9:16 AM MEDICAL ASSISTANT OB GYN Result Andria Sotelo MD HEMATOLOGY ORDERABLES Edited Performing Organization Address [facility] Phone Number INTERFACE SYSTEM Refer to clinic/hospital department documented in this encounter Visit Diagnoses Diagnosis Osteoarthrosis, unspecified whether generalized or localized, lower leg documented in this encounter
--- OUTSIDE RECORDS SUMMARY | 2024-11-29 11:36 | XMS_ITS | CONTINUITY OF CARE DOCUMENT ---
Author Name jevon escoto Address Unknown Organization [facility] Address [address] [place] [address] [address] [place] [address] Phone [phone] Care Team Providers Care Investment Analyst Name Role Phone jevon escoto Unavailable Unavailable INSURANCE PROVIDERS Payer name Policy type / Coverage type [place] red alliance party ID [facility] [id number]
--- OUTSIDE RECORDS SUMMARY | 2024-11-29 11:36 | XMS_ITS | Encounter Summary ---
Author Organization [facility] Address [address] [place] [address] Care Team Providers Care Bell Ringer Name Role Phone Unavailable Primary Care Provider [...] on file Legal Sex Male 5:12 AM LAUNDRY SORTER Gender Identity Not on file Sexual Orientation Not on file documented as of this encounter Plan of Treatment Not on file documented as of this encounter Visit Diagnoses Not on filedocumented in this encounter
--- OUTSIDE RECORDS SUMMARY | 2024-11-29 11:36 | XMS_ITS | Clinical Summary ---
Author Organization [facility] Address [address] [facility] Attn: Epic Prelude ADT [place]GUYEN [address] Care Team Providers Care Nursing Program Coordinator Name Role Phone Unavailable Primary Care Provider Unavailabl e Social History Tobacco Use Types Packs/Day Years Used Date Smoking Tobacco: Never Assessed Sex and Gender Information Value Date Recorded Sex Assigned at Not on file Legal Sex Male 5:12 AM DELIMER Gender Identity Not on file Sexual Orientation [...]
--- OUTSIDE RECORDS SUMMARY | 2024-11-29 11:36 | XMS_ITS | Continuity of Care Document ---
Author Organization [facility] Address [address] [place] [address] [place] [address] Phone Care Team Providers Care Resident Medical Officer Name Role Phone Poncho Amin Unavailable [...] Date Provider Providers Copied on Encounter [facility], [address] [place] [address] [address], [place], [place], [id number], [place] tel:[phone] [facility] [place] No Information 201 [address] Eloisa Isaac. [address] [facility] [address], [place], [address], [place]. tel:[phone] Referring Provider: Derick Bush [facility] [address], [place], [address]. tel:[phone] [facility], [address] [place] [address] [address], [place], [place], [id number], [place] tel:[phone] [facility] No Information Oct-0 5-201 0 Eloisa Isaac. [address] [facility] , [address], [place], [place], [facility], . tel:[phone] Referring Provider: Poncho Wren, [address] [facility] [address], [place], [facility]. tel:[phone] Office/outpat ient Visit, [facility], [address] [place] [address] [address], [place], [place], [id number], [place] tel:[phone] [facility] [place] No Information Aug-2 3-201 0 Eloisa Isaac. [address] [facility] [address], [address], [place], [place], [facility], [place]. tel:[phone] Office/outpat ient Visit, [facility], [address] [place] [address] [address], [place], [place], [id number], [place] tel:[phone] [facility] [place] No Information January-2 0-200 9 Eloisa Isaac. [address] [place], [place] [address]ate [address], [address], [place], [place], [facility], [place]. tel:[phone] Office/outpat ient Visit, [facility], [address] [place] [address] [address], [place], [place], [id number], [place] tel:[phone] [facility] [place] No Information Brett-0 7-200 8 Eloisa Isaac. [address] [facility] [address], [address], [place], [facility], [place]. tel:[phone] [facility], [address] [place] [address] [address], [place], [place], [id number], [place] tel:[phone] [facility] [place] No Information Charles-2 3-200 8 Eloisa Isaac. [address] [facility] [address], [address], [place], [facility], [place]. tel:[phone] [facility], [address] [place] [address] [address], [place], [place], [id number], tel:[phone] [facility] [place] No Information 8 Eloisa Isaac. [facility] , [address], [place], [facility], . tel:[phone] [facility], [address] [place] [address] [address], [place], [place], [id number], tel:[phone] [facility] No Information 8 Eloisa Isaac. [address] [place], [place] [address]ate [address], [address], [place], [facility], . tel:[phone] Office/outpat ient Visit, [facility], [address] [place] [address] [address], [place], [place], [address], tel:[phone] [facility] [place] No Information 200 7 Eloisa Isaac. [address] [place], [place] [address]ate [address], [address], [place], [facility], . tel:[phone] Referring Provider: Poncho Wren, [address] [place], [place] [address]ate [address], [place], [facility]. tel:[phone] [facility], [address] [place] [address] [address], [place], [place], [id number], tel:[phone] [facility] [place] No Information 0 200 7 Cortez OD Brad. [address] [place], [place] [address]ate [address], [address], [place], [facility], . tel:[phone] Family History Family Member Type Diagnosis Age At Onset No Information Payers Payer name Insurance type Covered republican ID Authoriza tion(s) [place] [id number] Social History Type Description Quantity Date Captured [...]
--- OUTSIDE RECORDS SUMMARY | 2024-11-29 11:36 | XMS_ITS | Encounter Summary ---
Author Organization [facility] Address [address] [place] [address] Care Team Providers Care Manager Utilization Management Name Role Phone Unavailable Primary Care Provider [...] on file Legal Sex Male 5:12 AM MANAGING EDITOR Gender Identity Not on file Sexual Orientation Not on file documented as of this encounter Plan of Treatment Not on file documented as of this encounter Visit Diagnoses Not on filedocumented in this encounter
--- OUTSIDE RECORDS SUMMARY | 2024-11-29 11:36 | XMS_ITS | Encounter Summary ---
Author Organization [facility] Address 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 LAMP KEEPER Gender Identity Not on file Sexual Orientation [...] CDT) HEMATOCRIT 28.8(L) 40.0 - 48.0 % [facility] HEMOGLOBIN 9.3(L) 13.6 - 16.5 g/dL [facility] Blood specimen (specimen) 01/10/2008 5:54 AM CDT 01/10/2008 7:00 AM CDT us Govind Sotelo MD HEMATOLOGY ORDERABLES Final Result [facility] [address] [place] [address] * HEMOGLOBIN AND HEMATOCRIT (12/25/2007 10:57 AM CDT) HEMATOCRIT 46.3 40.0 - 48.0 % [facility] HEMOGLOBIN 15.6 13.6 - 16.5 g/dL [facility] Blood specimen (specimen) 12/25/2007 10:57 AM CDT 12/25/2007 11:58 AM CDT us Govind Sotelo MD HEMATOLOGY ORDERABLES Final Result [facility] [address] [place] [address] * (ABNORMAL) BASIC METABOLIC PANEL (12/25/2007 10:57 AM CDT) CHLORIDE 100 96 - 108 mmol/L [facility] GLUCOSE 124(H) 65 - 99 mg/dL [facility] SODIUM 140 135 - 145 mmol/L [facility] CALCIUM 9.6 8.4 - 10.2 mg/dL [facility] CO2 28 22 - 30 mmol/L [facility] CREATININE 0.86 0.67 - 1.17 mg/dL [facility] POTASSIUM 3.9 3.5 - 4.9 mmol/L [facility] BUN 10 6 - 20 mg/dL [facility] GFR, >60 >=60 mL/min/1. 7 sq meter [facility] GFR >60 >=60 mL/min/1. 7 sq meter [facility] Comment: Estimated GFR rate interpretative information for both Americans and non- Americans is available on the [facility] Intranet at: [email or web address] Select: Lab Policies and Procedures Select: Reference Ranges - GFR Blood specimen (specimen) 12/25/2007 10:57 AM CDT 12/25/2007 11:58 AM CDT us Govind Sotelo MD CHEMISTRY ORDERABLES Edited [facility] [address] [place] [address] documented in this encounter Visit Diagnoses Diagnosis Osteoarthrosis, unspecified whether generalized or localized, lower leg documented in this encounter
[2024-11-29 12:03] LABS: Prostate Specific Antigen 4.3 ng/mL (< OR = 4.0)
== END 2024-11-29 10:06 | disposition home or self-care (01) ==
PROVIDERS: PCP Emergency Medicine; Visit Provider Emergency Medicine
DX: Z12.5 Encounter for screening for malignant neoplasm of prostate (principal); E11.9 Type 2 diabetes mellitus without complications
CPT/HCPCS: 36415; 83036; 84153; G0103

== ENCOUNTER 2024-12-28 13:40 | Emergency (ER) | payer MEDICARE, SELFPAY ==
--- NOTE | ~2024-12-28 | CT_ITS ---
CT abdomen pelvis wo con Ordering provider: Alyssa Craft MD History: 69 years Male with . fell onto bumper; broken rib, L flank/back pain . Comparison: None. Technique: CT abdomen and pelvis with IV and without oral contrast. Automated exposure control and it erative reconstruction technique were employed. The dose-length product was 302.21 mGy-cm. Findings: VISUALIZED LOWER CHEST: Normal. UPPER ABDOMINAL ORGANS: Liver: Multiple small hypodensities seen in the liver segment #5 and 8 with the largest measures 1.1 cm. Gallbladder: Status post cholecystectomy. Spleen: Normal. Calcified granulomas Stomach/duodenum: Normal. Pancreas: Normal. Adrenals: Normal. Kidneys: Normal. PELVIC ORGANS: The bladder is underfilled with thickened wall. Evaluation for cystitis advised. Enlar ged prostate. BOWEL AND MESENTERY: Colon: No evidence of diverticulitis or appendicitis. Small Bowel: Normal. No obstruction. Peritoneum/mesentery: No free air or free fluid. No mesenteric lymphadenopathy. RETROPERITONEUM: Mild atheromatous disease of the abdominal aorta. No retroperitoneal lymphadenopat hy. MUSCULOSKELETAL: Superficial soft tissues: The superficial soft tissues are normal. Bones: Age appropriate degenerative changes of the spine. Fracture of the left 11th rib with minimal displacement. Nondisplaced fractures seen in the left 10th rib. Levoscoliosis. IMPRESSION: 1. Fracture of the left 10th and 11th ribs. 2. Multiple hypodensities in the liver most likely cysts. Ultrasound evaluation advised. 3. No evidence of appendicitis, diverticulitis or intestinal obstruction. 4. No evidence of pneumothorax is visualized portion of the chest 5. No evidence of solid organ injury seen. 6. Enlarged prostate Reviewed, dictated and finalized at location A. IMPRESSION: 1. Fracture of the left 10th and 11th ribs. 2. Multiple hypodensities in the liver most likely cysts. Ultrasound evaluatio n advised. 3. No evidence of appendicitis, diverticulitis or intestinal obstruction. 4. No evidence of pneumothorax is visualized portion of the chest 5. No evidence of solid organ injury seen. 6. Enlarged prostate
--- NOTE | ~2024-12-28 | XR_ITS ---
EXAMINATION: XR ribs LT 2V w CXR 2V DATE: 12/28/2024 14:29 INDICATION: Posterior left rib pain TECHNIQUE: PA and lateral views of the chest and 3 views of the left ribs were obtained. COMPARISON: Chest radiograph dated FINDINGS: Subtle linear lucency projecting across the posterior left 11th rib on one image suspicious for nondi splaced fracture. No other rib fractures identified. Calcified left apical nodule along with calcite left hilar lymph nodes consistent with old granulomatous disease. No airspace opacities, pulmonary ed jutsine, pleural effusion or pneumothorax. Cardiomediastinal silhouette is normal. Mild thoracic dextrocu rvature and mild thoracolumbar levocurvature. Severe thoracic and upper lumbar spondylosis with chron ic appearing mild anterior wedging of a few mid to lower thoracic vertebral bodies. IMPRESSION: 1. Possible nondisplaced fracture of the posterior 11th rib. No pneumothorax or other acute cardiopul monary disease. Reviewed, dictated and finalized at location A. IMPRESSION: 1. Possible nondisplaced fracture of the posterior 11th rib. No pneumothorax or other acute cardiopulmonary disease.
[2024-12-28 14:02] VITALS: BP 195/87; PULSE 67; RESP 16; TEMP 36.5; O2SAT 99
--- NOTE | 2024-12-28 14:10 | ED_ITS ---
HPI - Back Pain/Injury General Chief Complaint: Back Pain/Injury <Nicole Santillan PA-C - Last Filed: 12/28/24 18:37> Stated Complaint: left back pain after falling onto bumper <Nicole Santillan PA-C - Last Filed: 12/28/24 18:37> Time Seen by Provider: 12/28/24 15:01 <Nicole Santillan PA-C - Last Filed: 12/28/24 18:37> Focused HPI: 69-year-old male presents emergency department for left posterior rib pain after an injury that occurred 2 hours prior to arrival. Patient states he was attempting to put up a 6 ft fence with a 6 ft fence began to fall on him, he took a step back and lost his step and fell into the tailgate of his truck. He hit the left posterior ribs. He is concerned he broke a rib. He denies head injury or trauma, difficulty breathing, chest pain or shortness of breath, other injuries acquired. GENERAL: Well-appearing, well-nourished, and in no acute distress. HEAD: Normocephalic, atraumatic. CHEST: Clear to auscultation. ?No respiratory distress. Tenderness to the left posterior lateral ribs with no overlying crepitus or deformity, minimal overlying erythema with no ecchymosis BACK: No midline cervical, thoracic or lumbar spinous tenderness, crepitus, step-offs or deformities HEART: Regular rate and rhythm.? NEURO: ?Alert and oriented x3. Patient screened in triage and initial orders placed.? ?Additional care and disposition to be based upon?diagnostic testing and treatment. <Nicole Santillan PA-C - Last Filed: 12/28/24 18:37> History of Present Illness HPI Narrative: agree with above <Alyssa Craft MD - Last Filed: 12/28/24 19:15> Related Data Allergies/Adverse Reactions: Allergies Allergy/AdvReac Type Severity Reaction Status Date / Time Penicillins Allergy Unknown Anaphylaxis Verified 12/28/24 15:02 <Nicole Santillan PA-C - Last Filed: 12/28/24 18:37> Review of Systems Review of Systems: All systems reviewed & are unremarkable except as noted in HPI and below <Alyssa Craft MD - Last Filed: 12/28/24 19:15> [facility] Past Medical History Medical History: Medical History Sprain of right elbow Metabolic syndrome Encounter for screening for cardiovascular disorders Acute midline low back pain with left-sided sciatica Hyperglycemia Hypertension <Nicole Santillan PA-C - Last Filed: 12/28/24 18:37> Surgical History Surgical History: Surgical History History of bilateral knee replacement History of orthopedic surgery Right upper extremity reconstruction <Nicole Santillan PA-C - Last Filed: 12/28/24 18:37> Family History Family History: Family History Mother Family history of diabetes mellitus in first degree relative Sibling Carcinoma of colon Uterine cancer <Nicole Santillan PA-C - Last Filed: 12/28/24 18:37> Social History Social History: Social History Smoking status: Former smoker Tobacco type: cigarettes Smoking end date: 08/15/02 Alcohol intake: former Substance use: current Substance use type: marijuana Other substance usage details: 3x weekly Do You Feel Safe in your Home?: Yes Lack of Transportation: No Lack of Food: Never True Current Housing: I Have Housing Concerned About Future Housing: No Difficulty Paying Gas/Electric Bills: No Difficulty Paying for Meds: No Currently Unemployed: No Education: Trade/Vocational Certificate Difficulty w/ Childcare or Family Care: No Living arrangements: with family Spiritual care concerns: No <Nicole Santillan PA-C - Last Filed: 12/28/24 18:37> Exam Narrative: EXAMINATION OF ORGAN SYSTEMS/BODY AREAS: Constitutional: Vital signs per nursing GENERAL:[No acute distress, non-toxic appearing.] HEAD: Normal with no signs of head trauma or tenderness NECK: No midline tenderness EYES: EOMI, conjunctiva normal ENT: Hearing grossly intact LUNGS: Nonlabored breathing. HEART: [Regular rate and rhythm] ABD: [Soft], [nontender to palpation]; flank tenderness, no obvious bruising EXT: Normal range of motion SKIN: [No rashes or lesions.] NEURO: [Alert and oriented x 3. No gross focal sensory or strength deficits.] PSYCH: Normal affect <Alyssa Craft MD - Last Filed: 12/28/24 19:15> Course Vital Signs Vital signs: Vital Signs Temperature 97.7 F 12/28/24 14:02 Pulse Rate 67 12/28/24 14:02 Respiratory Rate 16 12/28/24 14:02 Blood Pressure 195/87 H 12/28/24 14:02 Pulse Oximetry 99 12/28/24 14:02 Oxygen Delivery Room Air 12/28/24 14:02 Temperature 97.7 F 12/28/24 14:02 Pulse Rate 67 12/28/24 14:02 Respiratory Rate 16 12/28/24 14:02 Blood Pressure 195/87 H 12/28/24 14:02 Pulse Oximetry 99 12/28/24 14:02 Oxygen Delivery Room Air 12/28/24 14:02 <Nicole Santillan PA-C - Last Filed: 12/28/24 18:37> Vital Signs Temperature 97.7 F 12/28/24 14:02 Pulse Rate 67 12/28/24 14:02 Respiratory Rate 16 12/28/24 14:02 Blood Pressure 195/87 H 12/28/24 14:02 Pulse Oximetry 99 12/28/24 14:02 Oxygen Delivery Room Air 12/28/24 14:02 Temperature 97.7 F 12/28/24 14:02 Pulse Rate 67 12/28/24 14:02 Respiratory Rate 16 12/28/24 14:02 Blood Pressure 195/87 H 12/28/24 14:02 Pulse Oximetry 99 12/28/24 14:02 Oxygen Delivery Room Air 12/28/24 14:02 <Alyssa Craft MD - Last Filed: 12/28/24 19:15> MDM - Back Pain/Injury MDM Narrative Medical decision making narrative: Patient presents here after mechanical fall landing on a bumper, with severe sharp pain to his left lower ribs. X-ray does show broken ribs 11th, however given the location pain and his age, I did feel necessary to obtain a CT to ensure no kidney damage. Thankfully this just shows 2 rib fractures, he is given incentive spirometer, per RT did a great job with it, pain medication, and strict return precautions. Patient agreeable to this plan. at bedside. <Alyssa Craft MD - Last Filed: 12/28/24 19:15> Discharge Plan Discharge Clinical Impression: Closed rib fracture <Nicole Santillan PA-C - Last Filed: 12/28/24 18:37> Patient Disposition: Home <Nicole Santillan PA-C - Last Filed: 12/28/24 18:37> Condition: Stable <Nicole Santillan PA-C - Last Filed: 12/28/24 18:37> Instructions: Rib Fracture (ED) <Nicole Santillan PA-C - Last Filed: 12/28/24 18:37> Additional Instructions: Please follow up with your doctor; take the medications as prescribed. Come back to the ER if you feel worse. Make sure to use the incentive spirometer at least a few times a day. You also have some cysts on your liver; this is likely nothing to worry about but please follow up with your doctor for this. <Nicole Santillan PA-C - Last Filed: 12/28/24 18:37> Patient Language: Nepali <Nicole Santillan PA-C - Last Filed: 12/28/24 18:37> Prescriptions: New oxycodone 5 mg tablet 5 mg PO Q8H PRN (Reason: pain) Qty: 14 0RF acetaminophen [Tylenol Extra Strength] 500 mg tablet 1,000 mg PO Q6H PRN (Reason: pain) Qty: 50 0RF methocarbamol 750 mg tablet 750 mg PO TID PRN (Reason: muscle spasm) Qty: 30 0RF lidocaine 5 % adhesive patch,medicated 1 patch topical DAILY Qty: 15 0RF Rx Instructions: leave on most painful area for up to 12 hrs No Action tadalafil 5 mg tablet 5 mg PO DAILY Qty: 90 2RF lisinopril-hydrochlorothiazide 20-12.5 mg tablet See Rx Instructions .ROUTE .COMPLEX Qty: 180 2RF Dose Instruction: Take 2 tablets by mouth once daily Rx Instructions: Take 2 tablets by mouth once daily metoprolol succinate 50 mg tablet extended release 24 hr 50 mg PO DAILY Qty: 90 2RF naproxen 375 mg tablet 375 mg PO BID Qty: 14 0RF <Nicole Santillan PA-C - Last Filed: 12/28/24 18:37> Follow-up/Referrals: Zia Francisco MD [Primary Care Provider] - 2 Days <Nicole Santillan PA-C - Last Filed: 12/28/24 18:37>
--- OUTSIDE RECORDS SUMMARY | 2024-12-28 14:44 | XMS_ITS | Encounter Summary ---
Author Organization [facility] Address 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
--- OUTSIDE RECORDS SUMMARY | 2024-12-28 14:44 | XMS_ITS | Encounter Summary ---
Author Organization [email or web address] Address 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 COORDINATOR Gender Identity Not on file Sexual Orientation Not on file documented as of this encounter Plan of Treatment Not on file documented as of this encounter Procedures Procedure Name Priority Date/Time Associated Diagnosis Comments URINALYSIS WITH REFLEX CULTURE Routine 10/11/2007 8:25 AM HEART COORDINATOR URINALYSIS W/REFLEX MICROSCOPIC Routine 10/11/2007 8:25 AM HEART COORDINATOR HEMOGLOBIN AND HEMATOCRIT Routine 10/11/2007 7:00 AM HEART COORDINATOR BASIC METABOLIC PANEL Routine 10/11/2007 7:00 AM HEART COORDINATOR HEMOGLOBIN AND HEMATOCRIT Routine 10/10/2007 5:35 AM HEART COORDINATOR HEMOGLOBIN AND HEMATOCRIT Routine 09/30/2007 9:16 AM HEART COORDINATOR documented in this encounter Results * (ABNORMAL) URINALYSIS (10/11/2007 8:25 AM HEART COORDINATOR) COLOR UA Pale Yellow INTERFAC E SYSTEM [...] 3 /HPF INTERFACE SYSTEM 10/11/2007 8:25 AM HEART COORDINATOR us Mia Espinal MD URINE ORDERABLES Edited Performing Organization Address [facility] Phone Number INTERFACE SYSTEM Refer to clinic/hospital department * URINALYSIS WITH REFLEX CULTURE (10/11/2007 8:25 AM HEART COORDINATOR) URINE CULTURE ORDER Culture ordered INTERFACE SYSTEM Comment: Criteria for a reflex culture include one or more of the following: Abn ormal nitrite, leukocyte esterase, WBCs or RBCs. Lack of qualifying criteria does not exclude the possiblity of a urinary tract infection. Dilute urine, drug interference, etc. may decrease the sensitivity of the criteria analytes. 10/11/2007 8:25 AM HEART COORDINATOR us Mia Espinal MD URINE ORDERABLES Edited Performing Organization Address [facility] Phone Number INTERFACE SYSTEM Refer to clinic/hospital department * (ABNORMAL) BASIC METABOLIC PANEL (10/11/2007 7:00 AM HEART COORDINATOR) GLUCOSE 120(H) 65 - 99 mg/dL INTERFACE [...] and non- Americans is available on the [facility] Intranet at: [email or web address] Select: Lab Policies and Procedures Select: Reference Ranges - GFR 10/11/2007 7:00 AM HEART COORDINATOR us Mia Espinal MD CHEMISTRY ORDERABLES Edited Performing Organization Address [facility] Phone Number INTERFACE SYSTEM Refer to clinic/hospital department * (ABNORMAL) HEMOGLOBIN AND HEMATOCRIT (10/11/2007 7:00 AM HEART COORDINATOR) HEMOGLOBIN 8.9(L) 13.6 - 16.5 g/dL INTERFACE SYSTEM HEMATOCRIT 26.4(L) 40.0 - 48.0 % INTERFACE SYSTEM 10/11/2007 7:00 AM HEART COORDINATOR Result Andria Sotelo MD HEMATOLOGY ORDERABLES Edited Performing Organization Address [facility] Phone Number INTERFACE SYSTEM Refer to clinic/hospital department * (ABNORMAL) HEMOGLOBIN AND HEMATOCRIT (10/10/2007 5:35 AM HEART COORDINATOR) HEMOGLOBIN 9.0(L) 13.6 - 16.5 g/dL INTERFACE SYSTEM HEMATOCRIT 27.3(L) 40.0 - 48.0 % INTERFACE SYSTEM 10/10/2007 5:35 AM HEART COORDINATOR Result Andria Sotelo MD HEMATOLOGY ORDERABLES Edited Performing Organization Address [facility] Phone Number INTERFACE SYSTEM Refer to clinic/hospital department * HEMOGLOBIN AND HEMATOCRIT (09/30/2007 9:16 AM HEART COORDINATOR) HEMOGLOBIN 14.3 13.6 - 16.5 g/dL INTERFACE SYSTEM HEMATOCRIT 41.4 40.0 - 48.0 % INTERFACE SYSTEM 09/30/2007 9:16 AM HEART COORDINATOR Result Andria Sotelo MD HEMATOLOGY ORDERABLES Edited Performing Organization Address [facility] de Phone Number INTERFACE SYSTEM Refer to clinic/hospital department documented in this encounter Visit Diagnoses Diagnosis Osteoarthrosis, unspecified whether generalized or localized, lower leg documented in this encounter
--- OUTSIDE RECORDS SUMMARY | 2024-12-28 14:44 | XMS_ITS | CONTINUITY OF CARE DOCUMENT ---
Author Name jevon escoto Address Unknown Organization [facility] Address [address] [place] [address] [address] [place] [address] Phone [phone] Care Team Providers Care Manager Intensive Care Unit Name Role Phone jevon escoto Unavailable Unavailable INSURANCE PROVIDERS Payer name Policy type / Coverage type [place] red constitution party ID [facility] [id number]
--- OUTSIDE RECORDS SUMMARY | 2024-12-28 14:44 | XMS_ITS | Continuity of Care Document ---
Author Organization [facility] Address [address] [place] [address] [place] [address] Phone Care Team Providers Care Splunk Dashboard Developer Name Role Phone Poncho Amin Unavailable Unavailable [...] Diagnoses Date Provider Providers Copied on Encounter [facility], [address] [place] [address] [address], [place], [place], [id number], [place] tel:[phone] [facility] No Information 201 0 Eloisa Isaac. [address] [facility] [address], [place], [address], [place]. tel:[phone] Referring Provider: Derick Bush [facility] [address], [place], [address]. tel:[phone] [facility], [address] [place] [address] [address], [place], [place], [id number], [place] tel:[phone] [facility] No Information Oct-0 5-201 0 Eloisa Isaac. [address] [facility] , [address], [place], [place], [facility], . tel:[phone] Referring Provider: Poncho Wren, [address] [facility] [address], [place], [facility]. tel:[phone] Office/outpat ient Visit, [facility], [address] [place] [address] [address], [place], [place], [id number], [place] tel:[phone] [facility] No Information Aug-2 3-201 0 Eloisa Isaac. [address] [facility] [address], [address], [place], [facility], [place]. tel:[phone] Office/outpat ient Visit, [facility], [address] [place] [address] [address], [place], [place], [address], [place] tel:[phone] [facility] No Information January-2 0-200 9 Eloisa Isaac. [address] [place], [place] [address]ate [address], [address], [place], [facility], [place]. tel:[phone] Office/outpat ient Visit, [facility], [address] [place] [address] [address], [place], [place], [id number], [place] tel:[phone] [facility] No Information Brett-0 7-200 8 Eloisa Isaac. [address] [facility] [address], [address], [place], [facility], [place]. tel:[phone] [facility], [address] [place] [address] [address], [place], [place], [id number], [place] tel:[phone] [facility] No Information Charles-2 3-200 8 Eloisa Isaac. [address] [facility] [address], [address], [place], [facility], [place]. tel:[phone] [facility], [address] [place] [address] [address], [place], [place], [address], tel:[phone] [facility] No Information 8 Eloisa Isaac. [facility] , [address], [place], [facility], . tel:[phone] [facility], [address] [place] [address] [address], [place], [place], [address], tel:[phone] [facility] No Information 8 Eloisa Isaac. [address] [place], [place] [address]ate [address], [address], [place], [facility], . tel:[phone] Office/outpat ient Visit, [facility], [address] [place] [address] [address], [place], [place], [address], tel:[phone] [facility] No Information 200 7 Eloisa Isaac. [address] [place], [place] [address]ate [address], [address], [place], [facility], . tel:[phone] Referring Provider: Poncho Wren, [address] [place], [place] [address]ate [address], [place], [facility]. tel:[phone] [facility], [address] [place] [address] [address], [place], [place], [id number], tel:[phone] [facility] No Information 0 200 7 Cortez OD Brad. [address] [place], [place] [address]ate [address], [address], [place], [facility], . tel:[phone] Family History Family Member Type Diagnosis Age At Onset No Information Payers Payer name Insurance type Covered libertarian ID Authoriza tion(s) [place] [id number] Social History Type Description Quantity Date Captured [...]
--- OUTSIDE RECORDS SUMMARY | 2024-12-28 14:44 | XMS_ITS | Encounter Summary ---
Author Organization [facility] Address 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 Gender Identity Not on file Sexual Orientation [...] CDT) HEMATOCRIT 28.8(L) 40.0 - 48.0 % [facility] HEMOGLOBIN 9.3(L) 13.6 - 16.5 g/dL [facility] Blood specimen (specimen) 01/10/2008 5:54 AM CDT 01/10/2008 7:00 AM CDT us Govind Sotelo MD HEMATOLOGY ORDERABLES Final Result [facility] [address] [place] [address] * HEMOGLOBIN AND HEMATOCRIT (12/25/2007 10:57 AM CDT) HEMATOCRIT 46.3 40.0 - 48.0 % [facility] HEMOGLOBIN 15.6 13.6 - 16.5 g/dL [facility] Blood specimen (specimen) 12/25/2007 10:57 AM CDT 12/25/2007 11:58 AM CDT us Govind Sotelo MD HEMATOLOGY ORDERABLES Final Result [facility] [address] [place] [address] * (ABNORMAL) BASIC METABOLIC PANEL (12/25/2007 10:57 AM CDT) CHLORIDE 100 96 - 108 mmol/L [facility] GLUCOSE 124(H) 65 - 99 mg/dL [facility] SODIUM 140 135 - 145 mmol/L [facility] CALCIUM 9.6 8.4 - 10.2 mg/dL [facility] CO2 28 22 - 30 mmol/L [facility] CREATININE 0.86 0.67 - 1.17 mg/dL [facility] POTASSIUM 3.9 3.5 - 4.9 mmol/L [facility] BUN 10 6 - 20 mg/dL [facility] GFR, >60 >=60 mL/min/1. 7 sq meter [facility] GFR >60 >=60 mL/min/1. 7 sq meter [facility] Comment: Estimated GFR rate interpretative information for both Americans and non- Americans is available on the [facility] Intranet at: [email or web address] Select: Lab Policies and Procedures Select: Reference Ranges - GFR Blood specimen (specimen) 12/25/2007 10:57 AM CDT 12/25/2007 11:58 AM CDT us Govind Sotelo MD CHEMISTRY ORDERABLES Edited [facility] [address] [place] [address] documented in this encounter Visit Diagnoses Diagnosis Osteoarthrosis, unspecified whether generalized or localized, lower leg documented in this encounter
--- OUTSIDE RECORDS SUMMARY | 2024-12-28 14:44 | XMS_ITS | Clinical Summary ---
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
--- OUTSIDE RECORDS SUMMARY | 2024-12-28 14:44 | XMS_ITS | Encounter Summary ---
Author Organization [facility] Address [address] [place] [address] Care Team Providers Care Office Machine Servicer Apprentice Name Role Phone Unavailable Primary Care Provider [...] on file Legal Sex Male 5:12 AM NETWORKING ADMINISTRATOR Gender Identity Not on file Sexual Orientation Not on file documented as of this encounter Plan of Treatment Not on file documented as of this encounter Visit Diagnoses Not on filedocumented in this encounter
[2024-12-28] MEDS: ACETAMINOPHEN 500 MG TABLET 1000 MG PO (15:12)
[2024-12-28] MEDS: LIDOCAINE 5% PATCH 1 PATCH TRANSDERM (15:13)
--- OUTSIDE RECORDS SUMMARY | 2024-12-28 15:33 | XMS_ITS | Clinical Summary ---
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
--- OUTSIDE RECORDS SUMMARY | 2024-12-28 15:33 | XMS_ITS | CONTINUITY OF CARE DOCUMENT ---
Author Name jevon escoto Address Unknown Organization [facility] Address [address] [place] [address] [address] [place] [address] Phone [phone] Care Team Providers Care Fisher Oyster Name Role Phone jevon escoto Unavailable Unavailable INSURANCE PROVIDERS Payer name Policy type / Coverage type Beauty red constitution party ID [facility] [id number] 1
--- OUTSIDE RECORDS SUMMARY | 2024-12-28 15:33 | XMS_ITS | Continuity of Care Document ---
Author Organization [facility] Address [address] [place] [address] [place] [address] Phone Care Team Providers Care Collections Clerk Name Role Phone Poncho Amin Unavailable Unavailable [...] Diagnoses Date Provider Providers Copied on Encounter [facility], [address] [place] [address] [address], [place], [place], [id number], [place] tel:[phone] [facility] No Information 201 0 Eloisa Isaac. [address] [facility] [address], [place], [address], [place]. tel:[phone] Referring Provider: Derick Bush [facility] [address], [place], [address]. tel:[phone] [facility], [address] [place] [address] [address], [place], [place], [address], [place] tel:[phone] [facility] No Information Oct-0 5-201 0 Eloisa Isaac. [address] [facility] , [address], [place], [place], [facility], . tel:[phone] Referring Provider: Poncho Wren, [address] [facility] [address], [place], [facility]. tel:[phone] Office/outpat ient Visit, [facility], [address] [place] [address] [address], [place], [place], [id number], [place] tel:[phone] [facility] No Information Aug-2 3-201 0 Eloisa Isaac. [address] [facility] [address], [address], [place], [facility], [place]. tel:[phone] Office/outpat ient Visit, [facility], [address] [place] [address] [address], [place], [place], [address], [place] tel:[phone] [facility] No Information January-2 0-200 9 Eloisa Isaac. [address] [place], [place] [address]ate [address], [address], [place], [facility], [place]. tel:[phone] Office/outpat ient Visit, [facility], [address] [place] [address] [address], [place], [place], [address], [place] tel:[phone] [facility] No Information Brett-0 7-200 8 Eloisa Isaac. [address] [facility] [address], [address], [place], [facility], [place]. tel:[phone] [facility], [address] [place] [address] [address], [place], [place], [address], [place] tel:[phone] [facility] No Information Charles-2 3-200 8 Eloisa Isaac. [address] [facility] [address], [address], [place], [facility], [place]. tel:[phone] [facility], [address] [place] [address] [address], [place], [place], [address], tel:[phone] [facility] No Information 8 Eloisa Isaac. [facility] , [address], [place], [facility], . tel:[phone] [facility], [address] [place] [address] [address], [place], [place], [address], tel:[phone] [facility] No Information 8 Eloisa Isaac. [address] [place], [place] [address]ate [address], [address], [place], [facility], . tel:[phone] Office/outpat ient Visit, [facility], [address] [place] [address] [address], [place], [place], [address], tel:[phone] [facility] No Information 200 7 Eloisa Isaac. [address] [place], [place] [address]ate [address], [address], [place], [facility], . tel:[phone] Referring Provider: Poncho Wren, [address] [place], [place] [address]ate [address], [place], [facility]. tel:[phone] [facility], [address] [place] [address] [address], [place], [place], [address], tel:[phone] [facility] No Information 0 200 7 Cortez OD Brad. [address] [place], [place] [address]ate [address], [address], [place], [facility], . tel:[phone] Family History Family Member Type Diagnosis Age At Onset No Information Payers Payer name Insurance type Covered republican ID Authoriza tion(s) [place] [id number] Social History Type Description Quantity Date Captured [...]
--- OUTSIDE RECORDS SUMMARY | 2024-12-28 15:33 | XMS_ITS | Encounter Summary ---
Author Organization [facility] Address 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
--- OUTSIDE RECORDS SUMMARY | 2024-12-28 15:33 | XMS_ITS | Encounter Summary ---
Author Organization [facility] Address 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 Gender Identity Not on file Sexual Orientation [...] CDT) HEMATOCRIT 28.8(L) 40.0 - 48.0 % [facility] HEMOGLOBIN 9.3(L) 13.6 - 16.5 g/dL [facility] Blood specimen (specimen) 01/10/2008 5:54 AM CDT 01/10/2008 7:00 AM CDT us Govind Sotelo MD HEMATOLOGY ORDERABLES Final Result [facility] [address] [place] [address] * HEMOGLOBIN AND HEMATOCRIT (12/25/2007 10:57 AM CDT) HEMATOCRIT 46.3 40.0 - 48.0 % [facility] HEMOGLOBIN 15.6 13.6 - 16.5 g/dL [facility] Blood specimen (specimen) 12/25/2007 10:57 AM CDT 12/25/2007 11:58 AM CDT us Govind Sotelo MD HEMATOLOGY ORDERABLES Final Result [facility] [address] [place] [address] * (ABNORMAL) BASIC METABOLIC PANEL (12/25/2007 10:57 AM CDT) CHLORIDE 100 96 - 108 mmol/L [facility] GLUCOSE 124(H) 65 - 99 mg/dL [facility] SODIUM 140 135 - 145 mmol/L [facility] CALCIUM 9.6 8.4 - 10.2 mg/dL [facility] CO2 28 22 - 30 mmol/L [facility] CREATININE 0.86 0.67 - 1.17 mg/dL [facility] POTASSIUM 3.9 3.5 - 4.9 mmol/L [facility] BUN 10 6 - 20 mg/dL [facility] GFR, >60 >=60 mL/min/1. 7 sq meter [facility] GFR >60 >=60 mL/min/1. 7 sq meter [facility] Comment: Estimated GFR rate interpretative information for both Americans and non- Americans is available on the [facility] Intranet at: [email or web address] Select: Lab Policies and Procedures Select: Reference Ranges - GFR Blood specimen (specimen) 12/25/2007 10:57 AM CDT 12/25/2007 11:58 AM CDT us Govind Sotelo MD CHEMISTRY ORDERABLES Edited [facility] [address] [place] [address] documented in this encounter Visit Diagnoses Diagnosis Osteoarthrosis, unspecified whether generalized or localized, lower leg documented in this encounter
--- OUTSIDE RECORDS SUMMARY | 2024-12-28 15:34 | XMS_ITS | Encounter Summary ---
Author Organization [facility] Address 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 Gender Identity Not on file Sexual Orientation Not on file documented as of this encounter Plan of Treatment Not on file documented as of this encounter Procedures Procedure Name Priority Date/Time Associated Diagnosis Comments URINALYSIS WITH REFLEX CULTURE Routine 10/11/2007 8:25 AM SURVEILLANCE SENSOR OPERATOR URINALYSIS W/REFLEX MICROSCOPIC Routine 10/11/2007 8:25 AM SURVEILLANCE SENSOR OPERATOR HEMOGLOBIN AND HEMATOCRIT Routine 10/11/2007 7:00 AM SURVEILLANCE SENSOR OPERATOR BASIC METABOLIC PANEL Routine 10/11/2007 7:00 AM SURVEILLANCE SENSOR OPERATOR HEMOGLOBIN AND HEMATOCRIT Routine 10/10/2007 5:35 AM SURVEILLANCE SENSOR OPERATOR HEMOGLOBIN AND HEMATOCRIT Routine 09/30/2007 9:16 AM SURVEILLANCE SENSOR OPERATOR documented in this encounter Results * (ABNORMAL) URINALYSIS (10/11/2007 8:25 AM SURVEILLANCE SENSOR OPERATOR) COLOR UA Pale Yellow INTERFAC E SYSTEM [...] 3 /HPF INTERFACE SYSTEM 10/11/2007 8:25 AM SURVEILLANCE SENSOR OPERATOR us Mia Espinal MD URINE ORDERABLES Edited Performing Organization Address [facility] Phone Number INTERFACE SYSTEM Refer to clinic/hospital department * URINALYSIS WITH REFLEX CULTURE (10/11/2007 8:25 AM SURVEILLANCE SENSOR OPERATOR) URINE CULTURE ORDER Culture ordered INTERFACE SYSTEM Comment: Criteria for a reflex culture include one or more of the following: Abn ormal nitrite, leukocyte esterase, WBCs or RBCs. Lack of qualifying criteria does not exclude the possiblity of a urinary tract infection. Dilute urine, drug interference, etc. may decrease the sensitivity of the criteria analytes. 10/11/2007 8:25 AM SURVEILLANCE SENSOR OPERATOR us Mia Espinal MD URINE ORDERABLES Edited Performing Organization Address [facility] Phone Number INTERFACE SYSTEM Refer to clinic/hospital department * (ABNORMAL) BASIC METABOLIC PANEL (10/11/2007 7:00 AM SURVEILLANCE SENSOR OPERATOR) GLUCOSE 120(H) 65 - 99 mg/dL INTERFACE [...] and non- Americans is available on the [facility] Intranet at: [email or web address] Select: Lab Policies and Procedures Select: Reference Ranges - GFR 10/11/2007 7:00 AM SURVEILLANCE SENSOR OPERATOR us Mia Espinal MD CHEMISTRY ORDERABLES Edited Performing Organization Address City/[facility] Phone Number INTERFACE SYSTEM Refer to clinic/hospital department * (ABNORMAL) HEMOGLOBIN AND HEMATOCRIT (10/11/2007 7:00 AM SURVEILLANCE SENSOR OPERATOR) HEMOGLOBIN 8.9(L) 13.6 - 16.5 g/dL INTERFACE SYSTEM HEMATOCRIT 26.4(L) 40.0 - 48.0 % INTERFACE SYSTEM 10/11/2007 7:00 AM SURVEILLANCE SENSOR OPERATOR Result Andria Sotelo MD HEMATOLOGY ORDERABLES Edited Performing Organization Address [facility] Phone Number INTERFACE SYSTEM Refer to clinic/hospital department * (ABNORMAL) HEMOGLOBIN AND HEMATOCRIT (10/10/2007 5:35 AM SURVEILLANCE SENSOR OPERATOR) HEMOGLOBIN 9.0(L) 13.6 - 16.5 g/dL INTERFACE SYSTEM HEMATOCRIT 27.3(L) 40.0 - 48.0 % INTERFACE SYSTEM 10/10/2007 5:35 AM SURVEILLANCE SENSOR OPERATOR Result Andria Sotelo MD HEMATOLOGY ORDERABLES Edited Performing Organization Address [facility] Phone Number INTERFACE SYSTEM Refer to clinic/hospital department * HEMOGLOBIN AND HEMATOCRIT (09/30/2007 9:16 AM SURVEILLANCE SENSOR OPERATOR) HEMOGLOBIN 14.3 13.6 - 16.5 g/dL INTERFACE SYSTEM HEMATOCRIT 41.4 40.0 - 48.0 % INTERFACE SYSTEM 09/30/2007 9:16 AM SURVEILLANCE SENSOR OPERATOR Result Andria Sotelo MD HEMATOLOGY ORDERABLES Edited Performing Organization Address City/[facility] de Phone Number INTERFACE SYSTEM Refer to clinic/hospital department documented in this encounter Visit Diagnoses Diagnosis Osteoarthrosis, unspecified whether generalized or localized, lower leg documented in this encounter
--- OUTSIDE RECORDS SUMMARY | 2024-12-28 15:34 | XMS_ITS | Encounter Summary ---
Author Organization [facility] Address 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
[2024-12-28] MEDS: oxyCODONE HCL (*CRX) 5 MG TAB IR PO (16:35)
== END 2024-12-28 16:39 | disposition home or self-care (01) ==
PROVIDERS: Emergency Provider Emergency Medicine; PCP Emergency Medicine
DX: S22.42XA Multiple fractures of ribs, left side, initial encounter for closed fracture (principal); I10 Essential (primary) hypertension; E88.810 Metabolic syndrome; Z96.653 Presence of artificial knee joint, bilateral; Z87.891 Personal history of nicotine dependence; N40.0 Benign prostatic hyperplasia without lower urinary tract symptoms; W01.198A Fall on same level from slipping, tripping and stumbling with subsequent striking against other object, initial encounter
CPT/HCPCS: 71046; 71100; 74176; 99284; A9270

== ENCOUNTER 2025-04-22 15:24 | Observation (INO) | payer MEDICARE, SELFPAY ==
[2025-04-22] VITALS (9 sets, daily range): BP systolic 127–168; BP diastolic 67–85; PULSE 47–54; RESP 17–21; TEMP 36.4–36.8; O2SAT 98–100; BMI 24.8
--- NOTE | ~2025-04-22 | MR_ITS ---
EXAMINATION: MR brain/brain stem wo/w con DATE: 04/23/2025 11:16 INDICATION: Stroke. Altered mental status TECHNIQUE: Magnetic resonance imaging (MRI) of the brain and brainstem was performed without and with 14 mL Multihance intravenous contrast. Sequences included sagittal and axial T1-weighted SE, axial d iffusion-weighted FS SE, axial 3D SWAN, axial T2-weighted FLAIR, and axial T2-weighted FSE. Postcontr ast axial and coronal T1-weighted SE was obtained. Apparent diffusion coefficient (ADC) maps were cre ated. COMPARISON: CT dated 04/22/2025 FINDINGS: Small region of restricted diffusion consistent with acute infarct at the genu of the right corpus ca llosum. There are a few small old lacunar infarcts at the right basal ganglia and right frontal and p arietal dobbins radiata. No intracranial hemorrhage or abnormal intracranial mass lesion. There are sc attered areas of nonspecific increased T2-weighted signal intensity in the cerebral white matter, pre dominantly involving the deep and periventricular white matter. There are a few scattered small foci of susceptibility artifact in the brain including the right thalamus, bilateral basal ganglia, bilate ral cerebral hemispheres and in the cerebellum consistent with sequela of chronic microhemorrhage mos t typically due to hypertension but can be seen with amyloid angiopathy. Symmetric prominence of the sulci and subarachnoid spaces overlying the convexities consistent with mild age-appropriate diffuse cerebral volume loss. The ventricles are symmetric and normal in size. There are no abnormal extra-ax ial fluid collections. Flow voids are seen in the cerebral arteries on the T2-weighted sequences cons istent with their expected patency. Left vertebral artery is dominant with diminutive right vertebral artery.. Changes of bilateral intraocular lens replacement. Visualized orbits and soft tissues are u nremarkable. There are no areas of abnormal enhancement on the post contrast images. IMPRESSION: 1. Small acute infarct at the genu of the right corpus callosum. 2. Several old lacunar infarcts at the right basal ganglia and right frontal and parietal lobe dobbins radiata. 3. Multiple small foci of susceptibility artifact scattered throughout the brain including the cerebr al hemispheres, midbrain and cerebellum consistent with chronic microhemorrhage typically seen in the setting of hypertension but can also be seen with amyloid angiopathy. Reviewed, dictated and finalized at location A. IMPRESSION: 1. Small acute infarct at the genu of the right corpus callosum. 2. Several old lacunar infarcts at the right basal ganglia and right frontal an d parietal lobe dobbins radiata. 3. Multiple small foci of susceptibility artifact scattered throughout the brai n including the cerebral hemispheres, midbrain and cerebellum consistent with c hronic microhemorrhage typically seen in the setting of hypertension but can al so be seen with amyloid angiopathy.
--- NOTE | ~2025-04-22 | CT_ITS ---
CTA brain carotid Ordering provider: Tonny Hampton MD History: . AMS . Comparison: 12/28/2013. Reference is also made to a carotid duplex examination dated 12/29/2013, which demonstrated a less than 50% stenosis bilaterally Technique: CT angiogram head and neck was performed following timed intravenous injection of contrast . Thin slice axial images and reformatted coronal images were obtained. Three reformatted images of t he brain were also obtained using a [employer] workstation. DLP: 1941 mGy-cm FINDINGS: HEAD: --ANTERIOR AND MIDDLE CEREBRAL ARTERIES AND BRANCHES: Normal caliber and contour. --INTERNAL CAROTID ARTERIES: Moderate atheromatous disease bilaterally resulting in mild stenosis but no occlusion. --BASILAR ARTERY AND BRANCHES: Normal caliber and contour. No atheromatous disease. --POSTERIOR CEREBRAL ARTERIES: Normal caliber and contour --POSTERIOR COMMUNICATING ARTERIES: Not well visualized likely related to congenital absence or small size. --ANEURYSM: None visualized. --BRAIN: The ventricles are enlarged. The dilatation of the ventricles is proportional to the degree of sulcal prominence, not uncommon in the senescent brain. Decreased attenuation is identified within the periventricular white matter, likely secondary to micr ovascular ischemic disease, demonstrating advancement of disease from 12/28/2013. There is no mass, mass effect or midline shift. There is no abnormal extra-axial fluid collection or intracranial hemorrhage. Visualized paranasal sinuses are clear. The mastoid air cells are well aerated. No acute displaced fractures within the overlying cranium. NECK: --RIGHT CERVICAL CAROTID SYSTEM: Mild calcified atheromatous disease of the carotid bulb and proximal internal carotid artery without significant stenosis. Percent stenosis per NASCET criteria is 0% No carotid dissection. No significant stenosis of the cervical carotid system. --LEFT CERVICAL CAROTID SYSTEM: Mild atheromatous disease of the carotid bulb and proximal internal c arotid artery without significant stenosis. Percent stenosis per NASCET criteria is <5% No carotid d issection. Otherwise, no significant atheromatous disease or stenosis of the cervical carotid system. --VERTEBRAL ARTERIES: Left vertebral artery dominant with diminution of the right vertebral artery al ignment is --VISUALIZED AORTIC ARCH AND BRANCHING VESSELS: Normal caliber and contour. No significant atheromato us disease. --SOFT TISSUES: Unremarkable --CERVICAL SPINE: Age advanced degenerative changes. IMPRESSION: 1. Normal CTA head and neck. Percent stenosis per NASCET criteria is 0% on the right and less than 5% on the left. 2. No acute intracranial hemorrhage or suspicious mass effect. Reviewed, dictated and finalized at location A. IMPRESSION: 1. Normal CTA head and neck. Percent stenosis per NASCET criteria is 0% on th e right and less than 5% on the left. 2. No acute intracranial hemorrhage or suspicious mass effect.
--- NOTE | ~2025-04-22 | XR_ITS ---
EXAMINATION: XR chest 1V portable DATE: 04/22/2025 16:06 INDICATION: Altered mental status TECHNIQUE: frontal view of the chest was obtained. COMPARISON: Chest radiograph dated 12/28/2024 FINDINGS: Likely artifactual subtle asymmetric increased lucency of the left lung and chest wall relative to th e right. Unchanged small left apical calcified pulmonary nodule along with several calcified left hil ar lymph nodes consistent with old granulomatous disease. No other airspace opacities, pulmonary maikol a, pleural effusion or pneumothorax. The cardiomediastinal silhouette is normal. Mild thoracic dextro curvature with moderate spondylosis. IMPRESSION: 1. No acute cardiopulmonary disease. Reviewed, dictated and finalized at location A.
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
--- OUTSIDE RECORDS SUMMARY | 2025-04-22 15:26 | XMS_ITS | Clinical Summary ---
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
--- OUTSIDE RECORDS SUMMARY | 2025-04-22 15:26 | XMS_ITS | Continuity of Care Document ---
Author Organization [facility] Address [address] [place] [address] [place] [address] Phone Care Team Providers Care Dietetic Aide Name Role Phone Poncho Amin Unavailable Unavailable [...] Diagnoses Date Provider Providers Copied on Encounter [facility], [address] [place] [address] [address], [place], [place], [id number], [place] tel:[phone] [facility] No Information 201 0 Eloisa Isaac. [address], [place], [address], [place]. tel:[phone] Referring Provider: Derick Bush [facility] [address], [place], [address]. tel:[phone] [facility], [address] [place] [address] [address], [place], [place], [id number], [place] tel:[phone] [facility] No Information Oct-0 5-201 0 Eloisa Isaac. [address] , [address], [place], [place], [facility], . tel:[phone] Referring Provider: Poncho Wren, [address], [place], [facility]. tel:[phone] Office/outpat ient Visit, [facility], [address] [place] [address] [address], [place], [place], [id number], [place] tel:[phone] [facility] No Information Aug-2 3-201 0 Eloisa Isaac. [address], [address], [place], [facility], [place]. tel:[phone] Office/outpat ient Visit, [facility], [address] [place] [address] [address], [place], [place], [id number], [place] tel:[phone] [facility] No Information January-2 0-200 9 Eloisa Isaac. [address] [place], [place] [address]ate [address], [address], [place], [facility], [place]. tel:[phone] Office/outpat ient Visit, [facility], [address] [place] [address] [address], [place], [place], [id number], [place] tel:[phone] [facility] No Information Brett-0 7-200 8 Eloisa Isaac. [address], [address], [place], [facility], [place]. tel:[phone] [facility], [address] [place] [address] [address], [place], [place], [id number], [place] tel:[phone] [facility] No Information Charles-2 3-200 8 Eloisa Isaac. [address], [address], [place], [facility], [place]. tel:[phone] [facility], [address] [place] [address] [address], [place], [place], [id number], tel:[phone] [facility] No Information 8 Eloisa Isaac. [facility] , [address], [place], [facility], . tel:[phone] [facility], [address] [place] [address] [address], [place], [place], [id number], tel:[phone] [facility] No Information 8 Eloisa Isaac. [address] [place], [place] [address]ate [address], [address], [place], [facility], . tel:[phone] Office/outpat ient Visit, [facility], [address] [place] [address] [address], [place], [place], [id number], tel:[phone] [facility] No Information 200 7 Eloisa Isaac. [address] [place], [place] [address]ate [address], [address], [place], [facility], . tel:[phone] Referring Provider: Poncho Wren, [address] [place], [place] [address]ate [address], [place], [facility]. tel:[phone] [facility], [address] [place] [address] [address], [place], [place], [id number], tel:[phone] [facility] No Information 0 200 7 Cortez OD Brad. [address] [place], [place] [address]ate [address], [address], [place], [facility], . tel:[phone] Family History Family Member Type Diagnosis Age At Onset No Information Payers Payer name Insurance type Covered republican ID Authoriza tion(s) [place] [id number] Social History Type Description Quantity Date Captured [...]
--- OUTSIDE RECORDS SUMMARY | 2025-04-22 15:26 | XMS_ITS | Encounter Summary ---
Author Organization [facility] Address 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
--- OUTSIDE RECORDS SUMMARY | 2025-04-22 15:27 | XMS_ITS | Encounter Summary ---
Author Organization [facility] Address 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
--- OUTSIDE RECORDS SUMMARY | 2025-04-22 15:27 | XMS_ITS | Encounter Summary ---
Author Organization [facility] Address 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 Gender Identity Not on file Sexual Orientation Not on file documented as of this encounter Plan of Treatment Not on file documented as of this encounter Procedures Procedure Name Priority Date/Time Associated Diagnosis Comments URINALYSIS WITH REFLEX CULTURE Routine 10/11/2007 8:25 AM AXLE AND FRAME MECHANIC URINALYSIS W/REFLEX MICROSCOPIC Routine 10/11/2007 8:25 AM AXLE AND FRAME MECHANIC HEMOGLOBIN AND HEMATOCRIT Routine 10/11/2007 7:00 AM AXLE AND FRAME MECHANIC BASIC METABOLIC PANEL Routine 10/11/2007 7:00 AM AXLE AND FRAME MECHANIC HEMOGLOBIN AND HEMATOCRIT Routine 10/10/2007 5:35 AM AXLE AND FRAME MECHANIC HEMOGLOBIN AND HEMATOCRIT Routine 09/30/2007 9:16 AM AXLE AND FRAME MECHANIC documented in this encounter Results * (ABNORMAL) URINALYSIS (10/11/2007 8:25 AM AXLE AND FRAME MECHANIC) COLOR UA Pale Yellow INTERFAC E SYSTEM [...] 3 /HPF INTERFACE SYSTEM 10/11/2007 8:25 AM AXLE AND FRAME MECHANIC us Mia Espinal MD URINE ORDERABLES Edited Performing Organization Address [facility] Phone Number INTERFACE SYSTEM Refer to clinic/hospital department * URINALYSIS WITH REFLEX CULTURE (10/11/2007 8:25 AM AXLE AND FRAME MECHANIC) URINE CULTURE ORDER Culture ordered INTERFACE SYSTEM Comment: Criteria for a reflex culture include one or more of the following: Abn ormal nitrite, leukocyte esterase, WBCs or RBCs. Lack of qualifying criteria does not exclude the possiblity of a urinary tract infection. Dilute urine, drug interference, etc. may decrease the sensitivity of the criteria analytes. 10/11/2007 8:25 AM AXLE AND FRAME MECHANIC us Mia Espinal MD URINE ORDERABLES Edited Performing Organization Address [facility] Phone Number INTERFACE SYSTEM Refer to clinic/hospital department * (ABNORMAL) BASIC METABOLIC PANEL (10/11/2007 7:00 AM AXLE AND FRAME MECHANIC) GLUCOSE 120(H) 65 - 99 mg/dL INTERFACE [...] [facility] Intranet at: [email or web address] Select: Lab Policies and Procedures Select: Reference Ranges - GFR 10/11/2007 7:00 AM AXLE AND FRAME MECHANIC us Mia Espinal MD CHEMISTRY ORDERABLES Edited Performing Organization Address [facility] Phone Number INTERFACE SYSTEM Refer to clinic/hospital department * (ABNORMAL) HEMOGLOBIN AND HEMATOCRIT (10/11/2007 7:00 AM AXLE AND FRAME MECHANIC) HEMOGLOBIN 8.9(L) 13.6 - 16.5 g/dL INTERFACE SYSTEM HEMATOCRIT 26.4(L) 40.0 - 48.0 % INTERFACE SYSTEM 10/11/2007 7:00 AM AXLE AND FRAME MECHANIC Result Andria Sotelo MD HEMATOLOGY ORDERABLES Edited Performing Organization Address [facility] Phone Number INTERFACE SYSTEM Refer to clinic/hospital department * (ABNORMAL) HEMOGLOBIN AND HEMATOCRIT (10/10/2007 5:35 AM AXLE AND FRAME MECHANIC) HEMOGLOBIN 9.0(L) 13.6 - 16.5 g/dL INTERFACE SYSTEM HEMATOCRIT 27.3(L) 40.0 - 48.0 % INTERFACE SYSTEM 10/10/2007 5:35 AM AXLE AND FRAME MECHANIC Result Andria Sotelo MD HEMATOLOGY ORDERABLES Edited Performing Organization Address [facility] Phone Number INTERFACE SYSTEM Refer to clinic/hospital department * HEMOGLOBIN AND HEMATOCRIT (09/30/2007 9:16 AM AXLE AND FRAME MECHANIC) HEMOGLOBIN 14.3 13.6 - 16.5 g/dL INTERFACE SYSTEM HEMATOCRIT 41.4 40.0 - 48.0 % INTERFACE SYSTEM 09/30/2007 9:16 AM AXLE AND FRAME MECHANIC Result Andria Sotelo MD HEMATOLOGY ORDERABLES Edited Performing Organization Address [facility] de Phone Number INTERFACE SYSTEM Refer to clinic/hospital department documented in this encounter Visit Diagnoses Diagnosis Osteoarthrosis, unspecified whether generalized or localized, lower leg documented in this encounter
--- OUTSIDE RECORDS SUMMARY | 2025-04-22 15:27 | XMS_ITS | Encounter Summary ---
Author Organization [facility] Address 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 Gender Identity Not on file Sexual Orientation [...] CDT) HEMATOCRIT 28.8(L) 40.0 - 48.0 % [facility] HEMOGLOBIN 9.3(L) 13.6 - 16.5 g/dL [facility] Blood specimen (specimen) 01/10/2008 5:54 AM CDT 01/10/2008 7:00 AM CDT us Govind Sotelo MD HEMATOLOGY ORDERABLES Final Result [facility] [address] [place] [address] * HEMOGLOBIN AND HEMATOCRIT (12/25/2007 10:57 AM CDT) HEMATOCRIT 46.3 40.0 - 48.0 % [facility] HEMOGLOBIN 15.6 13.6 - 16.5 g/dL [facility] Blood specimen (specimen) 12/25/2007 10:57 AM CDT 12/25/2007 11:58 AM CDT us Govind Sotelo MD HEMATOLOGY ORDERABLES Final Result [facility] [address] [place] [address] * (ABNORMAL) BASIC METABOLIC PANEL (12/25/2007 10:57 AM CDT) CHLORIDE 100 96 - 108 mmol/L [facility] GLUCOSE 124(H) 65 - 99 mg/dL [facility] SODIUM 140 135 - 145 mmol/L [facility] CALCIUM 9.6 8.4 - 10.2 mg/dL [facility] CO2 28 22 - 30 mmol/L [facility] CREATININE 0.86 0.67 - 1.17 mg/dL [facility] POTASSIUM 3.9 3.5 - 4.9 mmol/L [facility] BUN 10 6 - 20 mg/dL [facility] GFR, >60 >=60 mL/min/1. 7 sq meter [facility] GFR >60 >=60 mL/min/1. 7 sq meter [facility] Comment: Estimated GFR rate interpretative information for both Americans and non- Americans is available on the [facility] Intranet at: [email or web address] Select: Lab Policies and Procedures Select: Reference Ranges - GFR Blood specimen (specimen) 12/25/2007 10:57 AM CDT 12/25/2007 11:58 AM CDT us Govind Sotelo MD CHEMISTRY ORDERABLES Edited [facility] [address] [place] [address] documented in this encounter Visit Diagnoses Diagnosis Osteoarthrosis, unspecified whether generalized or localized, lower leg documented in this encounter
--- NOTE | 2025-04-22 15:50 | ED.GENADULT ---
HPI - General Adult General Chief complaint: Altered Mental Status Stated complaint: AMS Time Seen by Provider: 04/22/25 15:35 History of Present Illness HPI narrative: 69-year-old male presents to the emergency department for evaluation for increased altered mental status. Patient has had increasing confusion since Friday. Patient fibers states that his last known normal was Friday. Patient denies any complaints but is confused and does have some confabulation. Patient is dismissive of his confusion. Patient was correct on the year and date but was incorrect on the month. Patient denies any other pain complaints patient denies any recent coughs colds or fevers. Patient denies any falls or injuries. Patient does have history of hypertension, prediabetic Related Data Allergies Allergy/AdvReac Type Severity Reaction Status Date / Time Penicillins Allergy Unknown Anaphylaxis Verified 04/22/25 15:45 Review of Systems Review of Systems: All systems reviewed & are unremarkable except as noted in HPI and below PMFSH Past Medical History Medical History Sprain of right elbow Metabolic syndrome Encounter for screening for cardiovascular disorders Acute midline low back pain with left-sided sciatica Hyperglycemia Hypertension Surgical History Surgical History History of bilateral knee replacement History of orthopedic surgery Right upper extremity reconstruction Family History Family History Mother Family history of diabetes mellitus in first degree relative Sibling Carcinoma of colon Uterine cancer Social History Social History Smoking packs per day: 1 Smoking cigarettes per day: 20.0 Years smoked: 20 Smoking pack-years: 20.00 Smoking status: Former smoker Tobacco type: cigarettes Second hand tobacco smoke exposure: Yes Smoking end date: 08/15/02 Alcohol intake: current Drinks per week: 1 Substance use: current Substance use type: marijuana Other substance usage details: 3x weekly Last use: 04/20/25 Do You Feel Safe in your Home?: Yes Lack of Transportation: No Lack of Food: Never True Current Housing: I Have Housing Concerned About Future Housing: No Difficulty Paying Gas/Electric Bills: No Difficulty Paying for Meds: No Currently Unemployed: No Education: High School Diploma/GED Difficulty w/ Childcare or Family Care: No Living arrangements: with family Spiritual care concerns: No Exam Narrative: APPEARANCE: Well appearing, no pain, no distress, well-nourished. HEAD: normocephalic, atraumatic. EYES: PERRLA/EOMI, conjunctivae clear. NOSE: Normal no drainage EARS:TMS clear with good light reflex. THROAT: Pharynx clear, no exudate. NECK: Supple. No adenopathy, no masses. RESPIRATORY: Airway patent, respirations nonlabored. Clear to auscultation bilaterally, no rales, rhonchi, wheezing. CARDIOVASCULAR: Regular rate and rhythm without murmurs rubs or gallops. ABDOMINAL: Soft, nontender, nondistended, normal bowel sounds MUSCULOSKELETAL: Moves all extremities. Strength/ROM intact, No edema, No calf tenderness. NEURO: Alert. Cranial nerves II through XII intact. Good gait. Good coordination SKIN: Warm, dry. Normal Color Course Vital Signs Vital signs: Vital Signs Temperature 98.1 F 04/22/25 15:39 Pulse Rate 54 L 04/22/25 15:39 Respiratory Rate 18 04/22/25 15:39 Blood Pressure 159/85 H 04/22/25 15:39 Pulse Oximetry 99 04/22/25 15:39 Oxygen Delivery Room Air 04/22/25 15:39 Temperature 97.5 F L 04/22/25 20:56 Pulse Rate 47 L 04/22/25 20:56 Respiratory Rate 18 04/22/25 20:56 Blood Pressure 168/74 H 04/22/25 20:56 Pulse Oximetry 100 04/22/25 20:56 Oxygen Delivery Room Air 04/22/25 15:39 Medical Decision Making [facility] Narrative Medical decision making narrative: 69-year-old male presenting to the emergency department for evaluation for altered mental status./patient has been increasingly confused since Friday. Patient has no focal neurologic abnormalities. Patient is currently afebrile with no leukocytosis and a stable hemoglobin, no acute abnormalities on his CMP patient was negative for influenza RSV and for COVID, patient did test positive for cannabinoids but does not appear to be actively intoxicated. Chest x-ray was negative and head CT was negative for acute abnormality. I am concerned patient may have an underlying CVA. I discussed case with the hospitalist patient will be accepted for admission for MRI. Patient and family were updated results of the workup and plan for admission. All questions concerns were addressed. Differential Diagnosis Differential Diagnosis: COVID, RSV, influenza, UTI, intoxication, CVA, TIA, pneumonia Vital Signs Vital Signs: Vital Signs Temperature 98.1 F 04/22/25 15:39 Pulse Rate 54 L 04/22/25 15:39 Respiratory Rate 18 04/22/25 15:39 Blood Pressure 159/85 H 04/22/25 15:39 Pulse Oximetry 99 04/22/25 15:39 Oxygen Delivery Room Air 04/22/25 15:39 Temperature 97.5 F L 04/22/25 20:56 Pulse Rate 47 L 04/22/25 20:56 Respiratory Rate 18 04/22/25 20:56 Blood Pressure 168/74 H 04/22/25 20:56 Pulse Oximetry 100 04/22/25 20:56 Oxygen Delivery Room Air 04/22/25 15:39 Lab Data Lab results reviewed: Yes I reviewed the patient's lab results. 04/22/25 16:08 04/22/25 16:08 Labs: Lab Results 04/22/25 04/22/25 Range/Units 15:59 16:08 WBC 8.0 (4.5-10.0) K/mm3 RBC 4.64 (4.6-6.20) M/mm3 Hgb 14.5 (14.0-18.0) g/dL Hct 42.1 (42.0-52.0) % MCV 90.7 (80-100) fl MCH 31.3 (26-34) pg MCHC 34.4 (32-36) g/dl RDW 13.5 (11.5-14.5) % Plt Count 286 (150-375) k/mm3 MPV 9.3 (7.4-10.4) fl Immature Gran % (Auto) 0.4 (0-0.5) % Neut % (Auto) 62.8 (45.5-73.1) % Lymph % (Auto) 22.7 (18.3-44.2) % [place] % (Auto) 8.5 (2.6-8.5) % Eos % (Auto) 4.6 H (0-4.4) % Baso % (Auto) 1.0 (0.2-1.2) % Lymph # (Auto) 1.82 (0.9-3.2) K/mm3 [place] # (Auto) 0.7 H (0.1-0.6) K/mm3 Eos # (Auto) 0.4 H (0-0.3) K/mm3 Baso # (Auto) 0.1 (0.0-0.1) K/mm3 Abs Immat Gran (auto) 0.03 (0.00-0.031) K/mm3 Absolute Neuts (auto) 5.0 (1.3-6.7) K/mm3 Absolute Nucleated RBC 0.000 (0.0-0.012) K/mm3 Nucleated RBC % 0.0 (0.0-0.2) % ESR 8 (0-20) mm/hr PT 13.1 (11.1-14.7) Seconds INR 1.0 APTT 27.3 (22.3-36.8) Seconds Sodium 140 (137-145) mmol/L Potassium 3.9 (3.4-5.0) mmol/L Chloride 106 (98-107) mmol/L Carbon Dioxide 24 (22-30) mmol/L Anion Gap 10 (4-12) mmol/L BUN 18 (9-20) mg/dL Creatinine 0.95 (0.7-1.3) mg/dL Estim Creat Clear Calc 58 ml/min Estimated GFR > 60 (59 - ) Glucose 127 H (65-110) mg/dL Lactic Acid 1.3 (0.7-2.0) mmol/L Calcium 9.4 (8.4-10.2) mg/dL Total Bilirubin 0.5 (0.2-1.3) mg/dL AST 23 (17-59) U/L ALT 12 (6-50) U/L Alkaline Phosphatase 67 (38-126) U/L C-Reactive Protein < 0.5 (<1.0) mg/dL Total Protein 6.9 (6.3-8.2) g/dL Albumin 4.1 (3.5-5.1) g/dL Urine Color Yellow (Yellow) Urine Appearance Clear (Clear) Urine pH 5.5 (5.0-9.0) Ur Specific [place] 1.026 (1.001-1.035) Urine Protein Negative (Negative) mg/dL Urine Glucose (UA) Negative (Negative) mg/dL Urine Ketones Trace H (Negative) mg/dL Ur Blood (Man) Negative (Negative) Urine Nitrate Negative (Negative) Urine Bilirubin Negative (Negative) Urine Urobilinogen 0.2 (<2.0) mg/dL Leukocyte Esterase Rfl Trace H (Negative) REGLA/UL Urine RBC 3-5 H (0-2) /hpf Urine WBC 0-5 (0-3) /hpf Ur Squamous Epith Cells None seen (Few) /hpf Urine Bacteria None seen /hpf Urine Casts 0-2 Urine Opiates Screen Negative (Negative) Urine Methadone Screen Negative (Negative) Ur Barbiturates Screen Negative (Negative) Ur Phencyclidine Scrn Negative (Negative) Ur Amphetamine Screen Negative (Negative) U Benzodiazepines Scrn Negative (Negative) Urine Cocaine Screen Negative (Negative) U Cannabinoids Screen Positive A (Negative) Influenza A (RT-PCR) Negative (Negative) Influenza B (RT-PCR) Negative (Negative) RSV (RT-PCR) Negative (Negative) SARS-CoV-2 RNA (RT-PCR) Negative (Negative) Imaging Data Radiologist's impression: Impressions Chest X-Ray 04/22/25 16:23 IMPRESSION: 1. No acute cardiopulmonary disease. Head/Neck CTA 04/22/25 17:22 IMPRESSION: 1. Normal CTA head and neck. Percent stenosis per NASCET criteria is 0% on the right and less than 5% on the left. 2. No acute intracranial hemorrhage or suspicious mass effect. Discharge Plan Discharge Clinical Impression: AMS (altered mental status) Patient Disposition: Still a Patient Condition: Stable
[2025-04-22 16:14] LABS: Add Urine Microscopic? YES; Appearance Urine Clear (Clear); Glucose Urine UA Negative (Negative); Leukocyte Esterase Ur Trace LEU/UL (Negative); Nitrate Urine Negative (Negative); Non Pathogenic Casts 0-2; Specific Grav Ur 1.026 (1.001-1.035)
[2025-04-22 16:14] LABS: Hematocrit 42.1 % (42.0-52.0); Hemoglobin 14.5 g/dL (14.0-18.0); Immature Granulocyte Percent A 0.4 % (0-0.5); Lymphocytes Absolute Auto 1.82 K/mm3 (0.9-3.2); Mean Corpuscular HGB Conc 34.4 g/dl (32-36); Mean Corpuscular Hemoglobin 31.3 pg (26-34); Mean Corpuscular Volume 90.7 fl (80-100); Nucleated Red Blood Cells Absolute Auto 0.000 K/mm3 (0.0-0.012); Nucleated Red Blood Cells Perc 0.0 % (0.0-0.2); Platelet Count Result 286 k/mm3 (150-375); Red Blood Count 4.64 M/mm3 (4.6-6.20); White Blood Count 8.0 K/mm3 (4.5-10.0)
[2025-04-22 16:29] LABS: INR 1.0; Prothrombin Time 13.1 Seconds (11.1-14.7)
[2025-04-22 16:30] LABS: Partial Thromboplastin Time 27.3 Seconds (22.3-36.8)
[2025-04-22 16:30] LABS: Cannabinoid Screen Urine Positive (Negative)
[2025-04-22 16:33] LABS: Alanine Aminotransferase 12 U/L (6-50); Albumin Level 4.1 g/dL (3.5-5.1); Alkaline Phosphatase 67 U/L (38-126); Anion Gap 10 mmol/L (4-12); Aspartate Amino Transferase 23 U/L (17-59); Bilirubin,Total 0.5 mg/dL (0.2-1.3); Blood Urea Nitrogen 18 mg/dL (9-20); CRP < 0.5 mg/dL (<1.0); Calcium 9.4 mg/dL (8.4-10.2); Carbon Dioxide 24 mmol/L (22-30); Chloride 106 mmol/L (98-107); Estimated CRCL calculation 58 ml/min; Estimated Glomerular Filt Rate > 60; Glucose 127 mg/dL (65-110); Potassium 3.9 mmol/L (3.4-5.0); Sodium 140 mmol/L (137-145); Total Protein 6.9 g/dL (6.3-8.2)
[2025-04-22 16:47] LABS: Influenza A QL RT-PCR Negative (Negative); Influenza B QL RT-PCR Negative (Negative); RSV RNA, RT-PCR Negative (Negative); SARS-CoV-2 RNA PCR Negative (Negative)
--- OUTSIDE RECORDS SUMMARY | 2025-04-22 18:37 | XMS_ITS | Encounter Summary ---
Author Organization [facility] Address 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
--- OUTSIDE RECORDS SUMMARY | 2025-04-22 18:37 | XMS_ITS | Encounter Summary ---
Author Organization [facility] Address 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
--- OUTSIDE RECORDS SUMMARY | 2025-04-22 18:37 | XMS_ITS | Clinical Summary ---
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
--- OUTSIDE RECORDS SUMMARY | 2025-04-22 18:37 | XMS_ITS | Encounter Summary ---
Author Organization [facility] Address 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 Gender Identity Not on file Sexual Orientation Not on file documented as of this encounter Plan of Treatment Not on file documented as of this encounter Procedures Procedure Name Priority Date/Time Associated Diagnosis Comments URINALYSIS WITH REFLEX CULTURE Routine 10/11/2007 8:25 AM YEAST STACKER URINALYSIS W/REFLEX MICROSCOPIC Routine 10/11/2007 8:25 AM YEAST STACKER HEMOGLOBIN AND HEMATOCRIT Routine 10/11/2007 7:00 AM YEAST STACKER BASIC METABOLIC PANEL Routine 10/11/2007 7:00 AM YEAST STACKER HEMOGLOBIN AND HEMATOCRIT Routine 10/10/2007 5:35 AM YEAST STACKER HEMOGLOBIN AND HEMATOCRIT Routine 09/30/2007 9:16 AM YEAST STACKER documented in this encounter Results * (ABNORMAL) URINALYSIS (10/11/2007 8:25 AM YEAST STACKER) COLOR UA Pale Yellow INTERFAC E SYSTEM [...] 3 /HPF INTERFACE SYSTEM 10/11/2007 8:25 AM YEAST STACKER us Mia Espinal MD URINE ORDERABLES Edited Performing Organization Address [facility] Phone Number INTERFACE SYSTEM Refer to clinic/hospital department * URINALYSIS WITH REFLEX CULTURE (10/11/2007 8:25 AM YEAST STACKER) URINE CULTURE ORDER Culture ordered INTERFACE SYSTEM Comment: Criteria for a reflex culture include one or more of the following: Abn ormal nitrite, leukocyte esterase, WBCs or RBCs. Lack of qualifying criteria does not exclude the possiblity of a urinary tract infection. Dilute urine, drug interference, etc. may decrease the sensitivity of the criteria analytes. 10/11/2007 8:25 AM YEAST STACKER us Mia Espinal MD URINE ORDERABLES Edited Performing Organization Address [facility] Phone Number INTERFACE SYSTEM Refer to clinic/hospital department * (ABNORMAL) BASIC METABOLIC PANEL (10/11/2007 7:00 AM YEAST STACKER) GLUCOSE 120(H) 65 - 99 mg/dL INTERFACE [...] is available on the [facility] Intranet at: [email or web address] Select: Lab Policies and Procedures Select: Reference Ranges - GFR 10/11/2007 7:00 AM YEAST STACKER us Mia Espinal MD CHEMISTRY ORDERABLES Edited Performing Organization Address [facility] Phone Number INTERFACE SYSTEM Refer to clinic/hospital department * (ABNORMAL) HEMOGLOBIN AND HEMATOCRIT (10/11/2007 7:00 AM YEAST STACKER) HEMOGLOBIN 8.9(L) 13.6 - 16.5 g/dL INTERFACE SYSTEM HEMATOCRIT 26.4(L) 40.0 - 48.0 % INTERFACE SYSTEM 10/11/2007 7:00 AM YEAST STACKER Result Andria Sotelo MD HEMATOLOGY ORDERABLES Edited Performing Organization Address [facility] Phone Number INTERFACE SYSTEM Refer to clinic/hospital department * (ABNORMAL) HEMOGLOBIN AND HEMATOCRIT (10/10/2007 5:35 AM YEAST STACKER) HEMOGLOBIN 9.0(L) 13.6 - 16.5 g/dL INTERFACE SYSTEM HEMATOCRIT 27.3(L) 40.0 - 48.0 % INTERFACE SYSTEM 10/10/2007 5:35 AM YEAST STACKER Result Andria Sotelo MD HEMATOLOGY ORDERABLES Edited Performing Organization Address [facility] Phone Number INTERFACE SYSTEM Refer to clinic/hospital department * HEMOGLOBIN AND HEMATOCRIT (09/30/2007 9:16 AM YEAST STACKER) HEMOGLOBIN 14.3 13.6 - 16.5 g/dL INTERFACE SYSTEM HEMATOCRIT 41.4 40.0 - 48.0 % INTERFACE SYSTEM 09/30/2007 9:16 AM YEAST STACKER Result Andria Sotelo MD HEMATOLOGY ORDERABLES Edited Performing Organization Address [facility] de Phone Number INTERFACE SYSTEM Refer to clinic/hospital department documented in this encounter Visit Diagnoses Diagnosis Osteoarthrosis, unspecified whether generalized or localized, lower leg documented in this encounter
--- OUTSIDE RECORDS SUMMARY | 2025-04-22 18:37 | XMS_ITS | Clinical Summary ---
Author Organization [facility] Address [address] [place] [phone] Phone Care Team Providers Care Building Rental Manager Name Role Phone Provider, None Primary Care Provider Unavailabl e Allergies Active Allergy Reactions Criticality Noted Date Comments Penicillins Other (see Comments) 04/18/2025 Encounters Date Type Department Care Team Description 04/18/2025 5:25 PM CDT - 04/18/2025 9:53 PM CDT Emergency [facility] [address] [place] [phone] Leo Navarrete DO Altered mental status, [...] 1.003 - 1.030 04/18/2025 7:41 PM CDT [facility] URINE PH 5.5 5.0 - 9.0 04/18/2025 7:41 PM CDT [facility] WBC ESTERASE Negative Negative 04/18/2025 7:41 PM CDT [facility] NITRITE Negative Negative 04/18/2025 7:41 PM CDT [facility] PROTEIN, RANDOM URINE Trace(A) Negative 04/18/2025 7:41 PM CDT [facility] URINE GLUCOSE, QUAL Negative Negative 04/18/2025 7:41 PM CDT [facility] URINE KETONES Trace(A) Negative 04/18/2025 7:41 PM CDT [facility] UROBILINOGEN 0.2 0.2 , 1.0 , Normal mg/dL 04/18/2025 7:41 PM CDT [facility] URINE BLOOD 2+(A) Negative emerson/ul 04/18/2025 7:41 PM CDT [facility] URINALYSIS COLOR Dark Yellow 04/18/2025 7:41 PM CDT [facility] URINALYSIS CLARITY Clear 04/18/2025 7:41 PM CDT [facility] WBC (Urine) 21-50(A) Negative, 0-5 /hpf 04/18/2025 7:41 PM CDT [facility] URINE RBC'S 3-5(A) Negative, 0-2 /hpf 04/18/2025 7:41 PM CDT [facility] EPITHELIAL CELLS Occasional /lpf 04/18/2025 7:41 PM CDT [facility] BACTERIA, URINE Few(A) Negative /hpf 04/18/2025 7:41 PM CDT [facility] URINE MUCOUS Few 04/18/2025 7:41 PM CDT [facility] Urine URINE SPECIMEN / Unknown Non-Phlebotomy Collection / Unknown 04/18/2025 7:03 PM CDT 04/18/2025 7:09 PM CDT Leo Navarrete DO URINE ORDERABLES Final R esult [facility] [address] [place] [phone], * (ABNORMAL) Urine Drug Screen (04/18/2025 7:03 PM CDT) UR AMPHETAMINE NON DETECTED NON DETECTED 04/18/2025 7:23 PM CDT [facility] Comment: FOR MEDICAL USE ONLY. CUTOFF CONCENTRATION FOR DETECTED RESULT: AMPHETAMINE: 500 NG/ML UR BARBITURATE NON DETECTED NON DETECTED 04/18/2025 7:23 PM CDT [facility] Comment: FOR MEDICAL USE ONLY. CUTOFF CONCENTRATION FOR DETECTED RESULT: BARBITUATES: 200 NG/ML UR BENZODIAZEPINES NON DETECTED NON DETECTED 04/18/2025 7:23 PM CDT [facility] Comment: FOR MEDICAL USE ONLY. CUTOFF CONCENTRATION FOR DETECTED RESULT: BENZODIAZAPINE: 200 NG/ML UR COCAINE METABOLITE NON DETECTED NON DETECTED 04/18/2025 7:23 PM CDT [facility] Comment: FOR MEDICAL USE ONLY. CUTOFF CONCENTRATION FOR DETECTED RESULT: COCAINE: 150 NG/ML UR OPIATES NON DETECTED NON DETECTED 04/18/2025 7:23 PM CDT [facility] Comment: FOR MEDICAL USE ONLY. CUTOFF CONCENTRATION FOR DETECTED RESULT: OPIATES: 300 NG/ML UR PHENCYCLIDINE NON DETECTED NON DETECTED 04/18/2025 7:23 PM CDT [facility] Comment: FOR MEDICAL USE ONLY. CUTOFF CONCENTRATION FOR DETECTED RESULT: PCP: 25 NG/ML UR CANNABINOID DETECTED(A) NON DETECTED 04/18/2025 7:23 PM CDT [facility] Comment: FOR MEDICAL USE ONLY. CUTOFF CONCENTRATION FOR DETECTED RESULT: THC (MARIJUANA): 50 NG/ML Urine Non-Phlebotomy Collection / Unknown 04/18/2025 7:03 PM CDT 04/18/2025 7:09 PM CDT us Leo Navarrete DO URINE ORDERABLES Final R esult [facility] [address] [place] [phone], * XR CHEST SINGLE VIEW PORTABLE (04/18/2025 6:34 PM CDT) Anatomical Region Laterality Modality Chest N/A Digital Radiogra phy 04/18/2025 6:34 PM CDT Impressions 04/19/2025 8:32 AM CDT IMPRESSION: No radiographic evidence of acute cardiopulmonary disease. Narrative 04/19/2025 8:32 AM CDT DICTATING PHYSICIAN: Home Vee M.D. - [facility] EXAMINATION: Chest x-ray, 1 view. [...] 04/19/2025 DICTATING PHYSICIAN: Home Vee M.D. - [facility] EXAMINATION: Chest x-ray, 1 view. CLINICAL [...] acute cardiopulmonary disease. us Leo Navarrete DO [facility] DI[facility]NOSTIC ORDERABLE S Final [...] related to communication were provided by [facility] after-[facility], as documented in the [...] A Negative Negative 04/18/2025 7:25 PM CDT [facility] FLU B Negative Negative 04/18/2025 7:25 PM CDT [facility] RESP SYNC VIRUS Negative Negative, Invalid 04/18/2025 7:25 PM CDT [facility] SARSCOV2 NOT DETECTED (Reference Range for this test is Not Detected) 04/18/2025 7:25 PM CDT [facility] Comment:This test was perfor med by a Reverse Insole Beveler PCR Method. Nasopharyngeal NASOPHARYNGEAL SWAB / Unknown Non-Phlebotomy Collection / Unknown 04/18/2025 6:15 PM CDT 04/18/2025 6:21 PM CDT us Leo Navarrete DO MICROBIOLOGY - GENERAL O RDERABLES Final Result Performing Organization Address City/[facility]/ZIP Co de Phone Number [facility] [address] [place] [address], * Julio Top Tube (04/18/2025 6:15 PM CDT) Blood Venous Catheter (IV) / Unknown 04/18/2025 6:15 PM CDT 04/18/2025 6:19 PM CDT us Leo Navarrete DO CHEMISTRY ORDERABLES Fin al Result Performing Organization Address [facility]/ZIP Co de Phone Number [facility] [address] [place] [address], [place] [phone] * Gold Top Tube (04/18/2025 6:15 PM CDT) Blood Venous Catheter (IV) / Unknown 04/18/2025 6:15 PM CDT 04/18/2025 6:23 PM CDT us Leo Navarrete DO CHEMISTRY ORDERABLES Fin al Result Performing Organization Address [facility]/ZIP Co de Phone Number [facility] [address] [place], [place] [address], [place] [phone] * Blue Top Tube (04/18/2025 6:15 PM CDT) Blood Venous Catheter (IV) / Unknown 04/18/2025 6:15 PM CDT 04/18/2025 6:23 PM CDT Leo Navarrete DO HEMATOLOGY ORDERABLES Fi nal Result Performing Organization Address [facility]/ZIP Co de Phone Number [facility] [address] [place], [place] [address], [place] [phone] * (ABNORMAL) CBC with Auto Differential (04/18/2025 6:15 PM CDT) WBC 8.90 4.00 - 12.00 10(3)/mcL 04/18/2025 6:35 PM CDT [facility] RBC 4.96 4.40 - 5.80 10(6)/mcL 04/18/2025 6:35 PM CDT [facility] HEMOGLOBIN (HGB) 15.7 13.0 - 16.5 g/dL 04/18/2025 6:35 PM CDT [facility] HEMATOCRIT (HCT) 44.3 38.0 - 50.0 % 04/18/2025 6:35 PM CDT [facility] MCV 89.3 82.0 - 96.0 fL 04/18/2025 6:35 PM CDT [facility] MCH 31.7 26.0 - 32.0 pg 04/18/2025 6:35 PM CDT [facility] MCHC 35.4 31.0 - 36.0 g/dL 04/18/2025 6:35 PM CDT [facility] PLATELET COUNT 282 140 - 440 10(3)/mcL 04/18/2025 6:35 PM CDT [facility] RDW 13.2 11.8 - 15.5 % 04/18/2025 6:35 PM CDT [facility] MPV 9.5 8.0 - 12.6 fL 04/18/2025 6:35 PM CDT [facility] NEUTROPHILS 74.3(H) 40.0 - 68.0 % 04/18/2025 6:35 PM CDT [facility] LYMPHOCYTES 13.5(L) 19.0 - 49.0 % 04/18/2025 6:35 PM CDT [facility] MONOCYTES 8.7 3.0 - 13.0 % 04/18/2025 6:35 PM CDT [facility] EOSINOPHILS 2.5 0.0 - 8.0 % 04/18/2025 6:35 PM CDT [facility] BASOPHILS 0.8 0.0 - 1.0 % 04/18/2025 6:35 PM CDT [facility] IMMATURE GRANULOCYTE 0.2 0.0 - 0.4 % 04/18/2025 6:35 PM CDT [facility] Comment:Immature Granulocyte s includes Metamyelocytes, Myelocytes, and Promyelocytes. ABSOLUTE NEUTROPHILS 6.62(H) 1.40 - 5.30 10(3)/mcL 04/18/2025 6:35 PM CDT [facility] ABSOLUTE LYMPHOCYTES 1.20 0.90 - 3.30 10(3)/mcL 04/18/2025 6:35 PM CDT [facility] ABSOLUTE MONOCYTES 0.77 0.10 - 0.90 10(3)/mcL 04/18/2025 6:35 PM CDT [facility] ABSOLUTE EOSINOPHIL 0.22 0.00 - 0.50 10(3)/mcL 04/18/2025 6:35 PM CDT [facility] ABSOLUTE BASOPHILS 0.07 0.00 - 0.10 10(3)/mcL 04/18/2025 6:35 PM CDT [facility] ABSOLUTE IMMATURE GRANULOCYTE 0.02 0.00 - 0.03 10 (3) mcL. 04/18/2025 6:35 PM CDT [facility] NRBC PER 100 WBC 0 04/18/20 6:35 PM CDT [facility] Blood Venous Catheter (IV) / Unknown 04/18/2025 6:15 PM CDT 04/18/2025 6:23 PM CDT us Leo Navarrete DO HEMATOLOGY ORDERABLES Fi nal Result Performing Organization Address [facility]/ZIP Co de Phone Number [facility] [address] [place] [phone], [place] [phone] * ETOH Level (04/18/2025 6:15 PM CDT) ETHANOL <10 <10 mg/dL 04/18/2025 6:42 PM CDT [facility] Blood Venous Catheter (IV) / Unknown 04/18/2025 6:15 PM CDT 04/18/2025 6:23 PM CDT Narrative [facility] - 04/18/2025 6:42 PM CDT FOR MEDICAL USE ONLY us Leo Navarrete DO CHEMISTRY ORDERABLES Fin al Result Performing Organization Address [facility]/ZIP Co de Phone Number [facility] [address] [place] [phone], [place] [phone] * (ABNORMAL) CMP (04/18/2025 6:15 PM CDT) SODIUM 144 136 - 145 mmol/L 04/18/2025 6:45 PM CDT [facility] POTASSIUM 3.3(L) 3.5 - 5.1 mmol/L 04/18/2025 6:45 PM CDT [facility] CHLORIDE 107 98 - 107 mmol/L 04/18/2025 6:45 PM T [facility] CO2, VENOUS 26 22 - 30 mmol/L 04/18/2025 6:45 PM CDT [facility] ANION GAP 11.0 <18.0 mmol/L 04/18/2025 6:45 PM CDT [facility] GLUCOSE 122(H) 70 - 99 mg/dL 04/18/2025 6:45 PM CDT [facility] BUN 18 8 - 26 mg/dL 04/18/2025 6:45 PM CDT [facility] CREATININE, BLOOD 1.18 0.70 - 1.30 mg/dL 04/18/2025 6:45 PM CDT [facility] BUN/CREATININE RATIO 15 12 - 20 ratio 04/18/2025 6:45 PM T [facility] TOTAL PROTEIN 7.2 6.0 - 8.0 g/dL 04/18/2025 6:45 PM CDT [facility] ALBUMIN 4.6 3.5 - 5.0 g/dL 04/18/2025 6:45 PM CDT [facility] A/G RATIO 1.8 1.0 - 2.2 04/18/2025 6:45 PM T [facility] CALCIUM 9.5 8.7 - 10.5 mg/dL 04/18/2025 6:45 PM CDT [facility] T BILI 0.5 0.2 - 1.2 mg/dL 04/18/2025 6:45 PM CDT [facility] SGOT (AST) 24 <43 U/L 04/18/2025 6:45 PM T [facility] SGPT (ALT) 13 <56 U/L 04/18/2025 6:45 PM CDT [facility] ALKALINE PHOSPHATASE 81 40 - 150 U/L 04/18/2025 6:45 PM CDT [facility] GFR, ESTIMATED >60 >=60 04/18/2025 6:45 PM CDT [facility] Comment: Creatinine Clearance is the preferred criteria for selecting drug dose adjustments in renally impaired patients. The GFR is provided as additional pertinent clinical information. GFR is reported in mL/min/1.73 sq m. Calculation based on the Chronic Kidney Disease Epidemiology Collaboration (CKD- EPI) equation refit without adjustment for race. GFR, EST. >60 >=60 025 6:45 PM CDT [facility] GFR, EST. NONAFRICAN >60 >=60 04/18/2025 6:45 PM CDT [facility] Blood Venous Catheter (IV) / Unknown 04/18/2025 6:15 PM CDT 04/18/2025 6:23 PM CDT us Leo Navarrete DO CHEMISTRY ORDERABLES Fin al Result [facility] [address] [place] [address], [place] [phone] from Last 3 Months Insurance MEDICARE C [employer] Care Teams Building Rental Manager Relationship Specialty Start Date End Date Provider, None [place] PCP - General 04/18/25
--- OUTSIDE RECORDS SUMMARY | 2025-04-22 18:37 | XMS_ITS | Continuity of Care Document ---
Author Organization [facility] Address [address] [place] [address] [place] [address] Phone Care Team Providers Care Floor Scrubber Name Role Phone Poncho Amin Unavailable Unavailable [...] Diagnoses Date Provider Providers Copied on Encounter [facility], [address] [place] [address] [address], [place], [place], [id number], [place] tel:[phone] [facility] No Information 201 0 Eloisa Isaac. [address] [facility] [address], [place], [address], [place]. tel:[phone] Referring Provider: Derick Bush [facility] [address], [place], [address]. tel:[phone] [facility], [address] [place] [address] [address], [place], [place], [id number], [place] tel:[phone] [facility] No Information Oct-0 5-201 0 Eloisa Isaac. [address] [facility] , [address], [place], [place], [facility], . tel:[phone] Referring Provider: Poncho Wren, [address] [facility] [address], [place], [facility]. tel:[phone] Office/outpat ient Visit, [facility], [address] [place] [address] [address], [place], [place], [id number], [place] tel:[phone] [facility] No Information Aug-2 3-201 0 Eloisa Isaac. [address] [facility] [address], [address], [place], [facility], [place]. tel:[phone] Office/outpat ient Visit, [facility], [address] [place] [address] [address], [place], [place], [id number], [place] tel:[phone] [facility] No Information January-2 0-200 9 Eloisa Isaac. [address] [place], [place] [address]ate [address], [address], [place], [facility], [place]. tel:[phone] Office/outpat ient Visit, [facility], [address] [place] [address] [address], [place], [place], [id number], [place] tel:[phone] [facility] No Information Brett-0 7-200 8 Eloisa Isaac. [address] [facility] [address], [address], [place], [facility], [place]. tel:[phone] [facility], [address] [place] [address] [address], [place], [place], [id number], [place] tel:[phone] [facility] No Information Charles-2 3-200 8 Eloisa Isaac. [address] [facility] [address], [address], [place], [facility], [place]. tel:[phone] [facility], [address] [place] [address] [address], [place], [place], [id number], tel:[phone] [facility] No Information 8 Eloisa Isaac. [facility] , [address], [place], [facility], . tel:[phone] [facility], [address] [place] [address] [address], [place], [place], [id number], tel:[phone] [facility] No Information 8 Eloisa Isaac. [address] [place], [place] [address]ate [address], [address], [place], [place], [facility], . tel:[phone] Office/outpat ient Visit, [facility], [address] [place] [address] [address], [place], [place], [id number], tel:[phone] [facility] No Information 200 7 Eloisa Isaac. [address] [place], [place] [address]ate [address], [address], [place], [facility], . tel:[phone] Referring Provider: Poncho Wren, [address] [place], [place] [address]ate [address], [place], [facility]. tel:[phone] [facility], [address] [place] [address] [address], [place], [place], [id number], tel:[phone] [facility] No Information 0 200 7 Cortez OD Brad. [address] [place], [place] [address]ate [address], [address], [place], [facility], . tel:[phone] Family History Family Member Type Diagnosis Age At Onset No Information Payers Payer name Insurance type Covered green party ID Authoriza tion(s) [place] [id number] Social History Type Description Quantity Date Captured [...]
--- OUTSIDE RECORDS SUMMARY | 2025-04-22 18:37 | XMS_ITS | Encounter Summary ---
Author Organization [employer] Address 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 Gender Identity Not on file Sexual Orientation [...] CDT) HEMATOCRIT 28.8(L) 40.0 - 48.0 % [facility] HEMOGLOBIN 9.3(L) 13.6 - 16.5 g/dL [facility] Blood specimen (specimen) 01/10/2008 5:54 AM CDT 01/10/2008 7:00 AM CDT us Govind Sotelo MD HEMATOLOGY ORDERABLES Final Result [facility] [address] [place] [address] * HEMOGLOBIN AND HEMATOCRIT (12/25/2007 10:57 AM CDT) HEMATOCRIT 46.3 40.0 - 48.0 % [facility] HEMOGLOBIN 15.6 13.6 - 16.5 g/dL [facility] Blood specimen (specimen) 12/25/2007 10:57 AM CDT 12/25/2007 11:58 AM CDT us Govind Sotelo MD HEMATOLOGY ORDERABLES Final Result [facility] [address] [place] [address] * (ABNORMAL) BASIC METABOLIC PANEL (12/25/2007 10:57 AM CDT) CHLORIDE 100 96 - 108 mmol/L [facility] GLUCOSE 124(H) 65 - 99 mg/dL [facility] SODIUM 140 135 - 145 mmol/L [facility] CALCIUM 9.6 8.4 - 10.2 mg/dL [facility] CO2 28 22 - 30 mmol/L [facility] CREATININE 0.86 0.67 - 1.17 mg/dL [facility] POTASSIUM 3.9 3.5 - 4.9 mmol/L [facility] BUN 10 6 - 20 mg/dL [facility] GFR, >60 >=60 mL/min/1. 7 sq meter [facility] GFR >60 >=60 mL/min/1. 7 sq meter [facility] Comment: Estimated GFR rate interpretative information for both Americans and non- Americans is available on the [facility] Intranet at: [email or web address] Select: Lab Policies and Procedures Select: Reference Ranges - GFR Blood specimen (specimen) 12/25/2007 10:57 AM CDT 12/25/2007 11:58 AM CDT us Govind Sotelo MD CHEMISTRY ORDERABLES Edited [facility] [address] [place] [address] documented in this encounter Visit Diagnoses Diagnosis Osteoarthrosis, unspecified whether generalized or localized, lower leg documented in this encounter
--- NOTE | 2025-04-22 19:11 | ADMGEN ---
This patient, Giancarlo Clark Jr., was admitted to Medical Room 246-01. Patient/family oriented to hospital policies and general routines including ID bracelet, bed and alarms, visiting hours, pain management, procedures, bathroom and other care routines, personal items, smoking policy, room service/diet, and visiting hours. Information on how to activate the Rapid Response Team has been discussed. Patient/Family are encouraged to report perceived risks to care and to ask questions if they do not understand what they are told or what they should do.
--- NOTE | 2025-04-22 19:15 | P.HP_ITS ---
H&P: HPI History of Present Illness Date/Time: 04/22/25 19:15 Chief Complaint: Altered mental status Narrative: 69-year-old male past medical history hypertension hyperglycemia presents the hospital with altered mental status. Patient states he has no complaints. He says sometimes he is a little forgetful. He is flat affect. Per the the patient went to the [facility] on Friday and was gone for several hours. The police came to her house to let her know that he was pulled over today for careless driving and took into the hospital for evaluation. The hospital due to CT with no acute findings and lab work showed no acute findings so he went home with his with recommendations to follow-up with a neurologist. She states that today she was talking to the neurologist's office in after long discussion with the corporate secretary she was encouraged to bring him back to the hospital. So she did. She states that over the last 4 5 months he has been acting a little different. 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 He has also been having trouble with balance. She states that sometimes he takes his medications and sometimes he does not. Review of Systems Review of Systems: ROS unobtainable: Yes unobtainable due to mental status PMFSH Past Medical History Medical History Sprain of right elbow Metabolic syndrome Encounter for screening for cardiovascular disorders Acute midline low back pain with left-sided sciatica Hyperglycemia Hypertension Surgical History Surgical History History of bilateral knee replacement History of orthopedic surgery Right upper extremity reconstruction Family History Family History Mother Family history of diabetes mellitus in first degree relative Sibling Carcinoma of colon Uterine cancer Social History Social History Smoking packs per day: 1 Smoking cigarettes per day: 20.0 Years smoked: 20 Smoking pack-years: 20.00 Smoking status: Former smoker Tobacco type: cigarettes Second hand tobacco smoke exposure: Yes Smoking end date: 08/15/02 Alcohol intake: current Drinks per week: 1 Substance use: current Substance use type: marijuana Other substance usage details: 3x weekly Last use: 04/20/25 Do You Feel Safe in your Home?: Yes Lack of Transportation: No Lack of Food: Never True Current Housing: I Have Housing Concerned About Future Housing: No Difficulty Paying Gas/Electric Bills: No Difficulty Paying for Meds: No Currently Unemployed: No Education: High School Diploma/GED Difficulty w/ Childcare or Family Care: No Living arrangements: with family Spiritual care concerns: No Meds Home Medications and Allergies Home Medications ?Medication ?Instructions ?Recorded ?Confirmed ?Type naproxen 375 mg tablet 375 mg PO BID #14 tabs 05/18/23 11/22/24 Rx tadalafil 5 mg tablet 5 mg PO DAILY #90 tabs 11/24/23 11/22/24 Rx lisinopril 20 See Rx Instructions .Route 11/22/24 04/22/25 Rx mg-hydrochlorothiazide 12.5 mg .COMPLEX #180 tabs tablet metoprolol succinate 50 mg 50 mg PO DAILY #90 tabs 11/22/24 04/22/25 Rx tablet,extended release 24 hr acetaminophen 500 mg tablet 1,000 mg (2 x 500 mg) PO Q6H PRN 12/28/24 Rx (Tylenol Extra Strength) pain #50 tabs lidocaine 5 % topical patch 1 patch topical DAILY #15 ea 12/28/24 Rx methocarbamol 750 mg tablet 750 mg PO TID PRN muscle spasm #30 12/28/24 Rx tabs oxycodone 5 mg tablet 5 mg PO Q8H PRN pain #14 tabs 12/28/24 Rx Allergies Allergy/AdvReac Type Severity Reaction Status Date / Time Penicillins Allergy Unknown Anaphylaxis Verified 04/22/25 15:45 Vital Signs Vital Signs - 24 hr 04/22/25 15:39 04/22/25 15:52 04/22/25 16:03 Temperature 98.1 F Pulse Rate 54 L 53 L 53 L Respiratory Rate 18 19 Blood Pressure 159/85 H 136/68 Pulse Oximetry 99 100 Oxygen Delivery Room Air 04/22/25 16:15 04/22/25 17:10 04/22/25 18:43 Temperature 98.2 F Pulse Rate 50 L 49 L 49 L Respiratory Rate 21 H 21 H 17 Blood Pressure 131/67 127/72 153/79 H Pulse Oximetry 100 100 98 Oxygen Delivery Exam Narrative: General: well appearing, appears stated age. HEENT: normocephalic, atraumatic. Mucous membranes moist. EOMI, PERRLA, bilateral sclera anicteric, no conjunctival injection. Neck supple without JVD, lymphadenopathy, or bruit. Respiratory: clear to ascultation bilaterally. No rales/rhonic/wheezes. Cardiovascular: Regular rate and rhythm, normal S1-S2 upon ascultation. No murmurs, rubs, or clicks. PMI is nondisplaced, capillary refill less than 3 second. Abdomen: Soft, round, no pulsatile masses, nondistended and nontender. No rebound, no guarding. No CVA tenderness, no hepatosplenomegaly. Bowel sounds present to all four quadrants. No high pitch or tinkling sounds, resonant to percussion. Extremities: No cyanosis, clubbing, or edema present. Pulses are palpable 2/2. Active ROM to all four extremities. Neuro: Alert and orientated x 3. PERRLA. Cranial nerves 2-12 intact without focal deficit. Skin: Warm, dry, and intact, without rash, erythema, or lesion. Psych: pleasant, cooperative, normal speech, normal affect, no hallucinations, no dysarthia Bradycardic H&P: Results Labs Labs: Short CBC 04/22/25 Range/Units 16:08 WBC 8.0 (4.5-10.0) K/mm3 Hgb 14.5 (14.0-18.0) g/dL Hct 42.1 (42.0-52.0) % Plt Count 286 (150-375) k/mm3 BMP 04/22/25 16:08 Sodium 140 Potassium 3.9 Chloride 106 Carbon Dioxide 24 BUN 18 Creatinine 0.95 Glucose 127 H Calcium 9.4 Liver Function 04/22/25 Range/Units 16:08 Total Bilirubin 0.5 (0.2-1.3) mg/dL AST 23 (17-59) U/L ALT 12 (6-50) U/L Alkaline Phosphatase 67 (38-126) U/L Albumin 4.1 (3.5-5.1) g/dL Urine 04/22/25 Range/Units 15:59 Urine Color Yellow (Yellow) Urine Appearance Clear (Clear) Urine pH 5.5 (5.0-9.0) Ur Specific Cliff 1.026 (1.001-1.035) Urine Protein Negative (Negative) mg/dL Urine Glucose (UA) Negative (Negative) mg/dL Assessment and Plan Assessment and plan (1) Hypertension: Qualifiers: Hypertension type: essential hypertension Qualified Code(s): I10 - Essential (primary) hypertension Code(s): I10 - Essential (primary) hypertension Status: Acute Assessment and Plan: Okay for lisinopril and hydrochlorothiazide (2) AMS (altered mental status): Code(s): R41.82 - Altered mental status, unspecified Status: Acute Assessment and Plan: CT head no acute findings No signs of infection No electrolyte imbalance U tox only positive for cannabinoids Neurology consult for possible neurological disorder MRI in the morning (3) Bradycardia: Code(s): R00.1 - Bradycardia, unspecified Status: Acute Assessment and Plan: Patient is bradycardic in the 40s Possible accidental overdose Hold home metoprolol Telemetry monitoring Quality VTE Prophylaxis VTE prophylaxis: mechanical ordered Hospitalist MIPS Advance Care Plan I have confirmed that the patient's Advanced Care Plan is present, code status is documented, or surrogate decision maker is listed in patient medical record.: Yes Medication Reconciliation I have utilized all available resources to obtain, update and review the patien ts current medications (includes all prescriptions, OTC, herbals, cannabis, and nutritional supplements).: Yes
[2025-04-23] VITALS (9 sets, daily range): BP systolic 126–157; BP diastolic 63–77; PULSE 46–60; RESP 18–20; TEMP 36.4–36.7; O2SAT 98–100
--- NOTE | 2025-04-23 | ECHO_ITS ---
Patient Info Name: Giancarlo Clark Age: 69 years : 1955 Gender: Male Ht: 67 in Wt: 158 lbs BSA: 1.85 m2 HR: 50 bpm BP: 143 / 77 mmHg Heart Rhythm: Bradycardia Technical Quality: Good Exam Date: 04/23/2025 11:05 AM Patient Status: I Admit Date: 04/22/2025 Exam Type: CA echo doppler w bubble study Complete two-dimensional, color flow and Doppler transthoracic echocardiogram is performed with agitated saline. Staff Referring Physician: Tonny Hampton Rental Car Porter: Suzanne Perea Attending Provider: Manny Smalls Contrast/Agitated Saline Contrast/Ag. Saline: Agitated Saline Amount: 20.00 ml Existing IV Access: Yes IV Access Condition: patent with no signs of infiltration Summary 1. Left ventricular systolic function is normal, estimated at 60-65. 2. There is mildly increased left ventricular wall thickness. 3. Intact interatrial septum visualized by agitated saline imaging. 4. There is trace tricuspid valve regurgitation. 5. No pulmonary hypertension, estimated pulmonary arterial systolic pressure is 21 mmHg. Left Ventricle Left ventricular chamber dimension is normal. Left ventricular systolic function is normal, estimated at 60-65. There is mildly increased left ventricular wall thickness. Left ventricular septal wall motion is normal. The left ventricular diastolic function is normal. Right Ventricle Right ventricular chamber dimension is normal. Right ventricular systolic function is normal. Left Atria Left atrial chamber dimension is normal. Right Atria Right atrial chamber dimension is normal. Atrial Septum Intact interatrial septum visualized by agitated saline imaging. Aortic Valve The aortic valve is trileaflet. There is no aortic valve sclerosis. There is no aortic valve stenosis. There is no aortic valve regurgitation. Pulmonic Valve The pulmonic valve is normal. There is no pulmonic valve stenosis. There is no pulmonic regurgitation. Mitral Valve The mitral valve has normal leaflets. There is no mitral valve stenosis. There is no mitral valve regurgitation. Tricuspid Valve The tricuspid valve leaflets are normal. There is no significant tricuspid valve stenosis. There is trace tricuspid valve regurgitation. No pulmonary hypertension, estimated pulmonary arterial systolic pressure is 21 mmHg. Pericardium/Pleural The pericardium appears normal. There is no pericardial effusion. Inferior Vena Cava Normal inferior vena cava with >50% collapse upon inspiration consistent with normal right atrial pressure, 5 mmHg. Aorta The aortic root size at the sinus of Valsalva is normal. The prox ascending aorta size is normal. Left Ventricular Outflow Tract Name Value Normal LVOT 2D LVOT Diameter 2.0 cm LVOT Doppler LVOT Peak Velocity 129 cm/s LVOT Peak Gradient 7 mmHg LVOT Mean Gradient 3 mmHg LVOT VTI 25 cm LVOT VTI/AV VTI Ratio 0.8 LVOT Stroke Volume 79 ml LVOT CO 4.1 l/min LVOT CI 2.2 l/min/m2 Pulmonic Valve Name Value Normal RVOT Doppler RVOT Peak Velocity 86 cm/s RVOT Peak Gradient 3 mmHg PV Doppler PV Peak Velocity 95 cm/s PV Peak Gradient 4 mmHg Mitral Valve Name Value Normal MV Diastolic Function MV E Peak Velocity 93 cm/s MV A Peak Velocity 60 cm/s MV E/A 1.5 MV Decel Time (PW) 267 ms MV Annular TDI MV E/e' (Septal) 13.7 MV E/e' (Lateral) 10.1 MV E/e' (Average) 11.9 Tricuspid Valve Name Value Normal TV Regurgitation Doppler TR Peak Velocity 201 cm/s TR Peak Gradient 16 mmHg Estimated PAP/RSVP RA Pressure 5 mmHg <=5 PA Systolic Pressure 21 mmHg <36 RV Systolic Pressure 21 mmHg <36 TV Annular TDI TV Lateral Kristin s' Velocity 15.4 cm/s >=9.5 Aorta Name Value Normal Ascending Aorta Ao Root Diameter (MM) 3.5 cm Ao Root Diam Index (MM) 1.9 cm/m2 Aortic Valve Name Value Normal AV Doppler AV Peak Velocity 160 cm/s AV Peak Gradient 10 mmHg AV Mean Gradient 5 mmHg AV VTI 31 cm AV Area (Cont Eq VTI) 2.6 cm2 >=3.0 AV Area (Cont Eq Oskar) 2.6 cm2 AV DI (Oskar) 0.81 AV Regurgitation 2D LVOT Area 3.2 cm2 Ventricles Name Value Normal LV Dimensions 2D/MM IVS Diastolic Thickness (2D) 1.1 cm 0.6-1.0 LVID Diastole (2D) 4.7 cm 4.2-5.8 LVIW Diastolic Thickness (2D) 1.1 cm 0.6-1.0 LVID Systole (2D) 2.6 cm 2.5-4.0 LVOT Diameter 2.0 cm LV Mass (2D Cubed) 186.17 g 88.00-224.00 LV Mass Index (2D Cubed) 101 g/m2 49-115 Relative Wall Thickness (2D) 0.45 <=0.42 LV Fractional Shortening/Ejection Fraction 2D/MM LV Fractional Shortening (2D) 45 % 25-43 LV EF (2D Teichholz) 76 % LV Diastolic Volume (4C MOD) 72 ml LV EF (4C MOD) 62 % LV Diastolic Volume (2C MOD) 51 ml LV EF (2C MOD) 58 % LV Diastolic Volume (BP MOD) 63 ml 62-150 LV Diastolic Volume Index (BP MOD) 34 ml/m2 34-74 LV Systolic Volume (BP MOD) 26 ml 21-61 LV Systolic Volume Index (BP MOD) 14 ml/m2 11-31 LV EF (BP MOD) 59 % 52-72 LV Diastolic Length (4C) 7.9 cm LV Systolic Length (4C) 6.7 cm LV Stroke Volume (4C MOD) 45 ml Atria Name Value Normal LA Dimensions LA Dimension (MM) 3.9 cm 3.0-4.0 LA Volume (4C A-L) 55 ml LA Volume (BP A-L) 61 ml RA Dimensions RA Area (4C) 17.6 cm2 <=18.0 Report Signatures
[2025-04-23 05:16] LABS: Hematocrit 40.5 % (42.0-52.0); Hemoglobin 13.9 g/dL (14.0-18.0); Immature Granulocyte Percent A 0.3 % (0-0.5); Lymphocytes Absolute Auto 1.65 K/mm3 (0.9-3.2); Mean Corpuscular HGB Conc 34.3 g/dl (32-36); Mean Corpuscular Hemoglobin 31.3 pg (26-34); Mean Corpuscular Volume 91.2 fl (80-100); Nucleated Red Blood Cells Absolute Auto 0.000 K/mm3 (0.0-0.012); Nucleated Red Blood Cells Perc 0.0 % (0.0-0.2); Platelet Count Result 275 k/mm3 (150-375); Red Blood Count 4.44 M/mm3 (4.6-6.20); White Blood Count 7.1 K/mm3 (4.5-10.0)
[2025-04-23 05:29] LABS: Anion Gap 6 mmol/L (4-12); Blood Urea Nitrogen 15 mg/dL (9-20); Calcium 8.9 mg/dL (8.4-10.2); Carbon Dioxide 26 mmol/L (22-30); Chloride 103 mmol/L (98-107); Estimated CRCL calculation 65 ml/min; Estimated Glomerular Filt Rate > 60; Glucose 105 mg/dL (65-110); Potassium 3.8 mmol/L (3.4-5.0); Sodium 135 mmol/L (137-145)
--- NOTE | 2025-04-23 07:23 | ECG_ITS ---
Test Date: 2025-04-23 07:54:42 Measurements Intervals Sledge Rate: 48 P: 45 MO: 174 QRS: -29 QRSD: 91 T: 14 QT: 445 QTc: 401 Interpretive Statements SINUS BRADYCARDIA CONSIDER INFERIOR INFARCT, AGE INDETERMINATE ABNORMAL ECG No previous ECG available for comparison Electronically Signed On 04-23-2025 11:05:53 CDT by Kirill Portillo D.O.
--- NOTE | 2025-04-23 10:35 | P.PNIM_ITS ---
Progress Note: A&P Assessment and Plan (1) Hypertension: Qualifiers: Hypertension type: essential hypertension Qualified Code(s): I10 - Essential (primary) hypertension Code(s): I10 - Essential (primary) hypertension Status: Acute Assessment and Plan: COntinue lisinopril and hydrochlorothiazide BP 143/77 monitor (2) AMS (altered mental status): Code(s): R41.82 - Altered mental status, unspecified Status: Acute Assessment and Plan: CT head no acute findings No signs of infection No electrolyte imbalance U tox only positive for cannabinoids MRI brain, ECHO, Lipid panel and A1c, and B12/Folate Neurology consulted (3) Bradycardia: Code(s): R00.1 - Bradycardia, unspecified Status: Acute Assessment and Plan: Patient is bradycardic in the 40s Possible accidental overdose Hold home metoprolol ECHO adn EKG ordered Telemetry monitoring Plan Possible Depression Partner noted that patient has lost interest in things he used to love to do And Poor appetite Psychiatry consulted DVT prophylaxis on Sq Lovenox Subjective Date/time seen: 04/23/25 10:35 Interval history: Comfortable at bedside Alert and oriented x2, partner noted symptoms has been going on since Friday and intermittently x 6 months Also noted patient has been losing interests in things he liked to do Review of Systems Review of Systems: ROS unobtainable: Yes unobtainable due to mental status Exam Narrative: General: well appearing, appears stated age. HEENT: normocephalic, atraumatic. Mucous membranes moist. EOMI, PERRLA, bilateral sclera anicteric, no conjunctival injection. Neck supple without JVD, lymphadenopathy, or bruit. Respiratory: clear to ascultation bilaterally. No rales/rhonic/wheezes. Cardiovascular: Regular rate and rhythm, normal S1-S2 upon ascultation. No murmurs, rubs, or clicks. PMI is nondisplaced, capillary refill less than 3 second. Abdomen: Soft, round, no pulsatile masses, nondistended and nontender. No rebound, no guarding. No CVA tenderness, no hepatosplenomegaly. Bowel sounds present to all four quadrants. No high pitch or tinkling sounds, resonant to percussion. Extremities: No cyanosis, clubbing, or edema present. Pulses are palpable 2/2. Active ROM to all four extremities. Neuro: Alert and orientated x 3. PERRLA. Cranial nerves 2-12 intact without focal deficit. Skin: Warm, dry, and intact, without rash, erythema, or lesion. Psych: pleasant, cooperative, normal speech, normal affect, no hallucinations, no dysarthia Bradycardic Objective Data Vital Signs Vital Signs: Vital Signs - 24 hr 04/22/25 15:39 04/22/25 15:52 04/22/25 16:03 Temperature 98.1 F Pulse Rate 54 L 53 L 53 L Respiratory Rate 18 19 Blood Pressure 159/85 H 136/68 Pulse Oximetry 99 100 Oxygen Delivery Room Air 04/22/25 16:15 04/22/25 17:10 04/22/25 18:43 Temperature 98.2 F Pulse Rate 50 L 49 L 49 L Respiratory Rate 21 H 21 H 17 Blood Pressure 131/67 127/72 153/79 H Pulse Oximetry 100 100 98 Oxygen Delivery 04/22/25 20:00 04/22/25 20:56 04/22/25 21:45 Temperature 97.5 F L Pulse Rate 51 L 47 L Respiratory Rate 18 Blood Pressure 168/74 H Pulse Oximetry 100 98 Oxygen Delivery Room Air 04/23/25 00:00 04/23/25 04:00 04/23/25 04:29 Temperature 97.7 F Pulse Rate 49 L 46 L 50 L Respiratory Rate 20 Blood Pressure 143/77 H Pulse Oximetry 98 Oxygen Delivery Intake/Output Intake/Output: Intake & Output 04/20/25 04/21/25 04/22/25 04/23/25 23:59 23:59 23:59 23:59 Intake Total 910 Balance 910 Meds/Results Medications: Active Medications Generic Name Dose Route Start Last Admin Trade Name Freq PRN Reason Stop Dose Admin Acetaminophen 650 mg 04/22/25 19:17 Acetaminophen 325 Mg Tablet PO Q4H PRN Mild Pain (1-3) or Fever Docusate Sodium 100 mg 04/22/25 19:17 Docusate Sodium 100 Mg Capsule PO BID PRN Constipation Hydrochlorothiazide 25 mg 04/23/25 09:00 04/23/25 08:48 Hydrochlorothiazide 12.5 Mg Capsule PO 25 mg QAM JUSTINA Administration Lisinopril 40 mg 04/23/25 09:00 04/23/25 08:49 Lisinopril 20 Mg Tablet PO 40 mg QAM JUSTINA Administration Perflutren Lipid Microsphere 0 ml 04/23/25 10:34 Perflutren Lipid Microspheres 1.5 Ml Vial Diluted To 10 Ml Total Volume IV P [facility] 04/26/25 10:34 ONCE PRN adequate visualization Protocol Radiology Results: ITS Impressions Chest X-Ray 04/22/25 16:23 IMPRESSION: 1. No acute cardiopulmonary disease. Head/Neck CTA 04/22/25 17:22 IMPRESSION: 1. Normal CTA head and neck. Percent stenosis per NASCET criteria is 0% on the right and less than 5% on the left. 2. No acute intracranial hemorrhage or suspicious mass effect. Labs Labs: Laboratory Results - last 24 hr 04/22/25 04/22/25 04/23/25 15:59 16:08 04:39 WBC 8.0 7.1 RBC 4.64 4.44 L Hgb 14.5 13.9 L Hct 42.1 40.5 L MCV 90.7 91.2 MCH 31.3 31.3 MCHC 34.4 34.3 RDW 13.5 13.2 Plt Count 286 275 MPV 9.3 9.5 Immature Gran % (Auto) 0.4 0.3 Neut % (Auto) 62.8 62.0 Lymph % (Auto) 22.7 23.2 [place] % (Auto) 8.5 7.6 Eos % (Auto) 4.6 H 5.8 H Baso % (Auto) 1.0 1.1 Lymph # (Auto) 1.82 1.65 [place] # (Auto) 0.7 H 0.5 Eos # (Auto) 0.4 H 0.4 H Baso # (Auto) 0.1 0.1 Abs Immat Gran (auto) 0.03 0.02 Absolute Neuts (auto) 5.0 4.4 Absolute Nucleated RBC 0.000 0.000 Nucleated RBC % 0.0 0.0 ESR 8 PT 13.1 INR 1.0 APTT 27.3 Sodium 140 135 L Potassium 3.9 3.8 Chloride 106 103 Carbon Dioxide 24 26 Anion Gap 10 6 BUN 18 15 Creatinine 0.95 0.86 Estim Creat Clear Calc 58 65 Estimated GFR > 60 > 60 Glucose 127 H 105 Lactic Acid 1.3 Calcium 9.4 8.9 Total Bilirubin 0.5 AST 23 ALT 12 Alkaline Phosphatase 67 C-Reactive Protein < 0.5 Total Protein 6.9 Albumin 4.1 Urine Color Yellow Urine Appearance Clear Urine pH 5.5 Ur Specific [place] 1.026 Urine Protein Negative Urine Glucose (UA) Negative Urine Ketones Trace H Ur Blood (Man) Negative Urine Nitrate Negative Urine Bilirubin Negative Urine Urobilinogen 0.2 Leukocyte Esterase Rfl Trace H Urine RBC 3-5 H Urine WBC 0-5 Ur Squamous Epith Cells None seen Urine Bacteria None seen Urine Casts 0-2 Urine Opiates Screen Negative Urine Methadone Screen Negative Ur Barbiturates Screen Negative Ur Phencyclidine Scrn Negative Ur Amphetamine Screen Negative U Benzodiazepines Scrn Negative Urine Cocaine Screen Negative U Cannabinoids Screen Positive A Influenza A (RT-PCR) Negative Influenza B (RT-PCR) Negative RSV (RT-PCR) Negative SARS-CoV-2 RNA (RT-PCR) Negative Quality VTE Prophylaxis VTE prophylaxis: mechanical ordered
[2025-04-24] VITALS (10 sets, daily range): BP systolic 120–138; BP diastolic 61–76; PULSE 56–70; RESP 18; TEMP 36.4; O2SAT 95–98
[2025-04-24 06:41] LABS: Vitamin B12 502.0 pg/mL (239-931)
[2025-04-24 08:02] LABS: Alanine Aminotransferase 10 U/L (6-50); Albumin Level 4.2 g/dL (3.5-5.1); Alkaline Phosphatase 75 U/L (38-126); Anion Gap 7 mmol/L (4-12); Aspartate Amino Transferase 23 U/L (17-59); Bilirubin,Total 0.8 mg/dL (0.2-1.3); Blood Urea Nitrogen 12 mg/dL (9-20); Calcium 9.6 mg/dL (8.4-10.2); Carbon Dioxide 28 mmol/L (22-30); Chloride 102 mmol/L (98-107); Estimated CRCL calculation 61 ml/min; Estimated Glomerular Filt Rate > 60; Glucose 105 mg/dL (65-110); Potassium 4.4 mmol/L (3.4-5.0); Sodium 137 mmol/L (137-145); Total Protein 6.7 g/dL (6.3-8.2)
[2025-04-24 08:25] LABS: Hematocrit 45.5 % (42.0-52.0); Hemoglobin 15.9 g/dL (14.0-18.0); Immature Granulocyte Percent A 0.4 % (0-0.5); Lymphocytes Absolute Auto 1.45 K/mm3 (0.9-3.2); Mean Corpuscular HGB Conc 34.9 g/dl (32-36); Mean Corpuscular Hemoglobin 31.4 pg (26-34); Mean Corpuscular Volume 89.7 fl (80-100); Nucleated Red Blood Cells Absolute Auto 0.000 K/mm3 (0.0-0.012); Nucleated Red Blood Cells Perc 0.0 % (0.0-0.2); Platelet Count Result 300 k/mm3 (150-375); Red Blood Count 5.07 M/mm3 (4.6-6.20); White Blood Count 8.3 K/mm3 (4.5-10.0)
--- NOTE | 2025-04-24 08:49 | P.PSYCH_ITS ---
Assessment and Plan Assessment and plan (1) AMS (altered mental status): Code(s): R41.82 - Altered mental status, unspecified Status: Acute (2) Hypertension: Qualifiers: Hypertension type: essential hypertension Qualified Code(s): I10 - Essential (primary) hypertension Code(s): I10 - Essential (primary) hypertension Status: Acute (3) Marijuana use: Code(s): F12.90 - Cannabis use, unspecified, uncomplicated Status: Acute Plan Presenting with worsening confusion, altered mental status over the past week. No agitation or aggression present. MRI was completed yesterday, awaiting neurology consult. Altered mental status less likely related to organic psychiatric disorder; rule out stroke, neurocognitive disorder. Would not likely benefit from psychotropic intervention at this time. Recommend following up with neurology, could benefit from neuropsychological evaluation in outpatient setting after discharge. Please re-consult psychiatry as needed. HPI Data of Consult Date/Time: 04/24/25 08:49 Requesting Physician: Manny Smalls MD Primary Care Provider: Zia Francisco MD Consult Narrative Narrative: Giancarlo Clark Jr. is a 69 year old male admitted 04/22/25 for altered mental status. Per significant other and chart review, the patient has not been acting right the past 4-5 months, which notably worsened over the past week. This past Friday, he had left home to go to the [facility] and did not return at the expected time. He was subsequently found in [place], [place]- where he was evaluated at a local hospital and subsequently discharged. He continued to present with confusion and odd behavior, so was brought back to ED for further eval. He is calm and cooperative during interview, however he does confabulate throughout conversation this morning. He is oriented to person/place. He was unsure of current president or year, although correctly discusses current political events. He denies any psychiatric history of treatment of such. Reports his mood is good, denies feeling overtly depressed, anxious. No known history of peter, psychosis. No known history of suicidal ideation or suicide attempts, inpatient behavioral health admissions. He does admit that the past few years his memory has been declining, it is ippy. He does admit to intermittent cannabis use, about once weekly to every other week for the past several years. Sleep is good, denies insomnia. Appetite is good. Review of Systems 2 Psychiatric: Psychiatric: Reports behavioral changes and Reports memory loss [facility] Past Medical History Medical History Sprain of right elbow Metabolic syndrome Encounter for screening for cardiovascular disorders Acute midline low back pain with left-sided sciatica Hyperglycemia Hypertension Surgical History Surgical History History of bilateral knee replacement History of orthopedic surgery Right upper extremity reconstruction Family History Family History Mother Family history of diabetes mellitus in first degree relative Sibling Carcinoma of colon Uterine cancer Social History Social History Smoking packs per day: 1 Smoking cigarettes per day: 20.0 Years smoked: 20 Smoking pack-years: 20.00 Smoking status: Former smoker Tobacco type: cigarettes Second hand tobacco smoke exposure: Yes Smoking end date: 08/15/02 Alcohol intake: current Drinks per week: 1 Substance use: current Substance use type: marijuana Other substance usage details: 3x weekly Last use: 04/20/25 Do You Feel Safe in your Home?: Yes Lack of Transportation: No Lack of Food: Never True Current Housing: I Have Housing Concerned About Future Housing: No Difficulty Paying Gas/Electric Bills: No Difficulty Paying for Meds: No Currently Unemployed: No Education: High School Diploma/GED Difficulty w/ Childcare or Family Care: No Living arrangements: with family Spiritual care concerns: No Meds Home Medications and Allergies Home Medications ?Medication ?Instructions ?Recorded ?Confirmed ?Type naproxen 375 mg tablet 375 mg PO BID #14 tabs 05/18/23 04/22/25 Rx lisinopril 20 See Rx Instructions .Route 11/22/24 04/22/25 Rx mg-hydrochlorothiazide 12.5 mg .COMPLEX #180 tabs tablet metoprolol succinate 50 mg 50 mg PO DAILY #90 tabs 11/22/24 04/22/25 Rx tablet,extended release 24 hr acetaminophen 500 mg tablet 1,000 mg (2 x 500 mg) PO Q6H PRN 12/28/24 04/22/25 Rx (Tylenol Extra Strength) pain #50 tabs Allergies Allergy/AdvReac Type Severity Reaction Status Date / Time Penicillins Allergy Unknown Anaphylaxis Verified 08/08/25 15:45 Vital Signs Vital Signs - 24 hr 04/23/25 08:50 04/23/25 12:00 04/23/25 14:28 Temperature 98.0 F Pulse Rate 57 L 55 L Respiratory Rate 20 Blood Pressure 157/71 H Pulse Oximetry 100 Oxygen Delivery Room Air 04/23/25 16:00 04/23/25 20:02 04/23/25 22:00 Temperature 97.5 F L Pulse Rate 51 L 59 L 60 Respiratory Rate 18 Blood Pressure 126/63 Pulse Oximetry 99 Oxygen Delivery 04/24/25 00:00 04/24/25 04:00 04/24/25 06:00 Temperature 97.6 F Pulse Rate 67 56 L 60 Respiratory Rate 18 Blood Pressure 138/76 Pulse Oximetry 98 Oxygen Delivery Exam 2 Psych: Appearance: grossly normal Mental Status: other (A/O x 2) Speech and movement: Normal speech and movement present Affect: normal affect A ttitude: cooperative Thought process: Confabulating thought process present Insight: Poor insight present (Psych) Judgement: Limited judgement present (Psych) Results Labs 04/24/25 04:44 04/24/25 04:44 Labs: Short CBC 04/24/25 Range/Units 04:44 WBC 8.3 (4.5-10.0) K/mm3 Hgb 15.9 (14.0-18.0) g/dL Hct 45.5 (42.0-52.0) % Plt Count 300 (150-375) k/mm3 BMP 04/24/25 04:44 Sodium 137 Potassium 4.4 Chloride 102 Carbon Dioxide 28 BUN 12 Creatinine 0.93 Glucose 105 Calcium 9.6 Liver Function 04/24/25 Range/Units 04:44 Total Bilirubin 0.8 (0.2-1.3) mg/dL AST 23 (17-59) U/L ALT 10 (6-50) U/L Alkaline Phosphatase 75 (38-126) U/L Albumin 4.2 (3.5-5.1) g/dL
[2025-04-24] MEDS: ENOXAPARIN 40 MG/0.4 ML SYRINGE SUB-Q (09:07)
--- NOTE | 2025-04-24 12:16 | PM.IMPN ---
Progress Note: A&P Assessment and Plan (1) Hypertension: Qualifiers: Hypertension type: essential hypertension Qualified Code(s): I10 - Essential (primary) hypertension Code(s): I10 - Essential (primary) hypertension Status: Acute Assessment and Plan: COntinue lisinopril and hydrochlorothiazide BP 143/77 monitor (2) AMS (altered mental status): Code(s): R41.82 - Altered mental status, unspecified Status: Acute Assessment and Plan: CT head no acute findings No signs of infection No electrolyte imbalance U tox only positive for cannabinoids MRI brain showed acute stroke right corpus callosum. , ECHO showed normal EF B12 502, Folate 11.7 Neurology consulted (3) Bradycardia: Code(s): R00.1 - Bradycardia, unspecified Status: Acute Assessment and Plan: Patient is bradycardic in the 40s improving Hold home metoprolol ECHO adn EKG reviewed Telemetry monitoring Plan acute stroke Patient presented with confusion MRI showed right corpus callosum stroke Aspirin and Plavix (Minor Stroke) x21 , Lipitor Depression ruled out by Psych ECHO normal EF, awaiting A1c and Lipid profile PT/OT for discharge planning DVT prophylaxis on Sq Lovenox Subjective Date/time seen: 04/24/25 12:16 Interval history: Comfortable at bedside MRI brain showed Acute stroke Review of Systems Review of Systems: ROS unobtainable: Yes unobtainable due to mental status Exam Narrative: General: well appearing, appears stated age. HEENT: normocephalic, atraumatic. Mucous membranes moist. EOMI, PERRLA, bilateral sclera anicteric, no conjunctival injection. Neck supple without JVD, lymphadenopathy, or bruit. Respiratory: clear to ascultation bilaterally. No rales/rhonic/wheezes. Cardiovascular: Regular rate and rhythm, normal S1-S2 upon ascultation. No murmurs, rubs, or clicks. PMI is nondisplaced, capillary refill less than 3 second. Abdomen: Soft, round, no pulsatile masses, nondistended and nontender. No rebound, no guarding. No CVA tenderness, no hepatosplenomegaly. Bowel sounds present to all four quadrants. No high pitch or tinkling sounds, resonant to percussion. Extremities: No cyanosis, clubbing, or edema present. Pulses are palpable 2/2. Active ROM to all four extremities. Neuro: Alert and orientated x 3. PERRLA. Cranial nerves 2-12 intact without focal deficit. Skin: Warm, dry, and intact, without rash, erythema, or lesion. Psych: pleasant, cooperative, normal speech, normal affect, no hallucinations, no dysarthia Bradycardic Objective Data Vital Signs Vital Signs: Vital Signs - 24 hr 04/23/25 14:28 04/23/25 16:00 04/23/25 20:02 Temperature 98.0 F Pulse Rate 55 L 51 L 59 L Respiratory Rate 20 Blood Pressure 157/71 H Pulse Oximetry 100 Oxygen Delivery 04/23/25 22:00 04/24/25 00:00 04/24/25 04:00 Temperature 97.5 F L Pulse Rate 60 67 56 L Respiratory Rate 18 Blood Pressure 126/63 Pulse Oximetry 99 Oxygen Delivery 04/24/25 06:00 04/24/25 08:00 04/24/25 09:05 Temperature 97.6 F Pulse Rate 60 60 Respiratory Rate 18 Blood Pressure 138/76 Pulse Oximetry 98 Oxygen Delivery Room Air Intake/Output Intake/Output: Intake & Output 04/21/25 04/22/25 04/23/25 04/24/25 23:59 23:59 23:59 23:59 Intake Total 1999 120 Balance 1999 120 Meds/Results Medications: Active Medications Generic Name Dose Route Start Last Admin Trade Name Freq PRN Reason Stop Dose Admin Acetaminophen 650 mg 04/22/25 19:17 Acetaminophen 325 Mg Tablet PO Q4H PRN Mild Pain (1-3) or Fever Aspirin 81 mg 04/25/25 09:00 Aspirin 81 Mg Enteric Tablet PO QAM [facility] Atorvastatin Calcium 40 mg 04/25/25 09:00 Atorvastatin 40 Mg Tablet PO DAILY [facility] Docusate Sodium 100 mg 04/22/25 19:17 Docusate Sodium 100 Mg Capsule PO BID PRN Constipation Enoxaparin Sodium 40 mg 04/24/25 09:00 04/24/25 09:07 Enoxaparin 40 Mg/0.4 Ml Syringe SUB-Q 40 mg DAILY [facility] Administration Hydrochlorothiazide 25 mg 04/23/25 09:00 04/24/25 09:07 Hydrochlorothiazide 12.5 Mg Capsule PO 25 mg QAM JUSTINA Administration Lisinopril 40 mg 04/23/25 09:00 04/24/25 09:07 Lisinopril 20 Mg Tablet PO 40 mg QAM JUSTINA Administration Perflutren Lipid Microsphere 0 ml 04/23/25 10:34 Perflutren Lipid Microspheres 1.5 Ml Vial Diluted To 10 Ml Total Volume IV PUSH 04/26/25 10:34 ONCE PRN adequate visualization Protocol Radiology Results: ITS Impressions Chest X-Ray 04/22/25 16:23 IMPRESSION: 1. No acute cardiopulmonary disease. Head/Neck CTA 04/22/25 17:22 IMPRESSION: 1. Normal CTA head and neck. Percent stenosis per NASCET criteria is 0% on the right and less than 5% on the left. 2. No acute intracranial hemorrhage or suspicious mass effect. Brain MRI 04/23/25 11:23 IMPRESSION: 1. Small acute infarct at the genu of the right corpus callosum. 2. Several old lacunar infarcts at the right basal ganglia and right frontal and parietal lobe dobbins radiata. 3. Multiple small foci of susceptibility artifact scattered throughout the brain including the cerebral hemispheres, midbrain and cerebellum consistent with chronic microhemorrhage typically seen in the setting of hypertension but can also be seen with amyloid angiopathy. Labs Labs: Laboratory Results - last 24 hr 04/24/25 04:44 WBC 8.3 RBC 5.07 Hgb 15.9 Hct 45.5 MCV 89.7 MCH 31.4 MCHC 34.9 RDW 13.2 Plt Count 300 MPV 9.6 Immature Gran % (Auto) 0.4 Neut % (Auto) 68.7 Lymph % (Auto) 17.4 L [place] % (Auto) 7.6 Eos % (Auto) 4.8 H Baso % (Auto) 1.1 Lymph # (Auto) 1.45 [place] # (Auto) 0.6 Eos # (Auto) 0.4 H Baso # (Auto) 0.1 Abs Immat Gran (auto) 0.03 Absolute Neuts (auto) 5.7 Absolute Nucleated RBC 0.000 Nucleated RBC % 0.0 Sodium 137 Potassium 4.4 Chloride 102 Carbon Dioxide 28 Anion Gap 7 BUN 12 Creatinine 0.93 Estim Creat Clear Calc 61 Estimated GFR > 60 Glucose 105 Calcium 9.6 Total Bilirubin 0.8 AST 23 ALT 10 Alkaline Phosphatase 75 Total Protein 6.7 Albumin 4.2 Vitamin B12 502.0 Folate 11.7 Quality VTE Prophylaxis VTE prophylaxis: mechanical ordered
[2025-04-25] VITALS: PULSE 59
[2025-04-25 03:49] VITALS: BP 121/71; PULSE 63; RESP 18; TEMP 36.6; O2SAT 96
[2025-04-25 04:00] VITALS: PULSE 66
[2025-04-25 05:19] LABS: Hematocrit 49.2 % (42.0-52.0); Hemoglobin 17.0 g/dL (14.0-18.0); Immature Granulocyte Percent A 0.3 % (0-0.5); Lymphocytes Absolute Auto 1.39 K/mm3 (0.9-3.2); Mean Corpuscular HGB Conc 34.6 g/dl (32-36); Mean Corpuscular Hemoglobin 31.5 pg (26-34); Mean Corpuscular Volume 91.1 fl (80-100); Nucleated Red Blood Cells Absolute Auto 0.000 K/mm3 (0.0-0.012); Nucleated Red Blood Cells Perc 0.0 % (0.0-0.2); Platelet Count Result 315 k/mm3 (150-375); Red Blood Count 5.40 M/mm3 (4.6-6.20); White Blood Count 9.0 K/mm3 (4.5-10.0)
[2025-04-25 05:41] LABS: Hemoglobin A1C 5.9 % (<5.7)
[2025-04-25 06:19] LABS: Alanine Aminotransferase 12 U/L (6-50); Albumin Level 4.6 g/dL (3.5-5.1); Alkaline Phosphatase 77 U/L (38-126); Anion Gap 9 mmol/L (4-12); Aspartate Amino Transferase 26 U/L (17-59); Bilirubin,Total 0.9 mg/dL (0.2-1.3); Blood Urea Nitrogen 14 mg/dL (9-20); Calcium 9.7 mg/dL (8.4-10.2); Carbon Dioxide 28 mmol/L (22-30); Chloride 101 mmol/L (98-107); Cholesterol 243 mg/dL (0-200); Estimated CRCL calculation 60 ml/min; Estimated Glomerular Filt Rate > 60; Glucose 117 mg/dL (65-110); HDL Direct 55 mg/dL; Magnesium 2.1 mg/dL (1.6-2.3); Potassium 3.7 mmol/L (3.4-5.0); Sodium 138 mmol/L (137-145); Total Protein 7.9 g/dL (6.3-8.2); Triglycerides 116 mg/dL (<150)
[2025-04-25 08:00] VITALS: PULSE 75
--- NOTE | 2025-04-25 08:53 | P.CONNEU_ITS ---
Consult date: 04/25/25 HPI: Giancarlo Clark Jr. is a 69 year old male Admitted to the hospital through the emergency room for the complaints of increasing alteration in the mental status. Patient himself was dismissive of his confusion, he was correct on the ear and date but cut incorrect on the month. He had no other generalized symptomatology. He is reportedly allergic to penicillin. He has ongoing history of hypertension, hyperglycemia, and metabolic syndrome. He has undergone bilateral total knee replacement, right upper extremity reconstruction, he has history of years smoked 20 with smoking pack years 20 but at present former smoker. And currently alcohol intake only 1 drinks per week. Initial exam in the emergency room not significant, vital signs was blood pressure 168/74, CBC normal, BMP normal, drug screen positive for cannabinoids, chest x-ray negative, CTA of the head and neck normal, Review of Systems 2 Review of Systems: All systems reviewed & are unremarkable except as noted in HPI and below PMFSH Past Medical History Medical History Sprain of right elbow Metabolic syndrome Encounter for screening for cardiovascular disorders Acute midline low back pain with left-sided sciatica Hyperglycemia Hypertension Surgical History Surgical History History of bilateral knee replacement History of orthopedic surgery Right upper extremity reconstruction Family History Family History Mother Family history of diabetes mellitus in first degree relative Sibling Carcinoma of colon Uterine cancer Social History Social History Smoking packs per day: 1 Smoking cigarettes per day: 20.0 Years smoked: 20 Smoking pack-years: 20.00 Smoking status: Former smoker Tobacco type: cigarettes Second hand tobacco smoke exposure: Yes Smoking end date: 08/15/02 Alcohol intake: current Drinks per week: 1 Substance use: current Substance use type: marijuana Other substance usage details: 3x weekly Last use: 04/20/25 Do You Feel Safe in your Home?: Yes Lack of Transportation: No Lack of Food: Never True Current Housing: I Have Housing Concerned About Future Housing: No Difficulty Paying Gas/Electric Bills: No Difficulty Paying for Meds: No Currently Unemployed: No Education: High School Diploma/GED Difficulty w/ Childcare or Family Care: No Living arrangements: with family Spiritual care concerns: No Meds Home Medications and Allergies Home Medications ?Medication ?Instructions ?Recorded ?Confirmed ?Type naproxen 375 mg tablet 375 mg PO BID #14 tabs 05/18/23 04/22/25 Rx lisinopril 20 See Rx Instructions .Route 11/22/24 04/22/25 Rx mg-hydrochlorothiazide 12.5 mg .COMPLEX #180 tabs tablet metoprolol succinate 50 mg 50 mg PO DAILY #90 tabs 11/22/24 04/22/25 Rx tablet,extended release 24 hr acetaminophen 500 mg tablet 1,000 mg (2 x 500 mg) PO Q6H PRN 12/28/24 04/22/25 Rx (Tylenol Extra Strength) pain #50 tabs Allergies Allergy/AdvReac Type Severity Reaction Status Date / Time Penicillins Allergy Unknown Anaphylaxis Verified 04/22/25 15:45 Vital Signs Vital Signs - 24 hr 04/24/25 09:05 04/24/25 12:00 04/24/25 14:42 Temperature 36.4 C L Pulse Rate 70 63 Respiratory Rate 18 Blood Pressure 132/61 Pulse Oximetry 97 Oxygen Delivery Room Air 04/24/25 16:00 04/24/25 20:00 04/24/25 21:18 Temperature 36.4 C Pulse Rate 63 59 L 70 Respiratory Rate 18 Blood Pressure 120/66 Pulse Oximetry 98 Oxygen Delivery 04/24/25 23:11 04/25/25 00:00 04/25/25 03:49 Temperature 36.6 C Pulse Rate 59 L 63 Respiratory Rate 18 Blood Pressure 121/71 Pulse Oximetry 95 96 Oxygen Delivery Room Air 04/25/25 04:00 04/25/25 08:00 04/25/25 08:04 Temperature Pulse Rate 66 75 Respiratory Rate Blood Pressure Pulse Oximetry Oxygen Delivery Room Air Results Labs 04/25/25 04:46 04/25/25 04:46 Labs: Short CBC 04/25/25 Range/Units 04:46 WBC 9.0 (4.5-10.0) K/mm3 Hgb 17.0 (14.0-18.0) g/dL Hct 49.2 (42.0-52.0) % Plt Count 315 (150-375) k/mm3 BMP 04/25/25 04:46 Sodium 138 Potassium 3.7 Chloride 101 Carbon Dioxide 28 BUN 14 Creatinine 0.95 Glucose 117 H Calcium 9.7 Liver Function 04/25/25 Range/Units 04:46 Total Bilirubin 0.9 (0.2-1.3) mg/dL AST 26 (17-59) U/L ALT 12 (6-50) U/L Alkaline Phosphatase 77 (38-126) U/L Albumin 4.6 (3.5-5.1) g/dL
[2025-04-25] MEDS: ASPIRIN 81 MG ENTERIC TABLET PO (09:21)
[2025-04-25] MEDS: CLOPIDOGREL BISULFATE 75 MG TABLET PO (09:22)
[2025-04-25] MEDS: ATORVASTATIN 40 MG TABLET PO (09:22)
[2025-04-25] MEDS: ENOXAPARIN 40 MG/0.4 ML SYRINGE SUB-Q (09:22)
[2025-04-25 12:00] VITALS: PULSE 91
--- NOTE | 2025-04-25 13:01 | P.CONNEU_ITS ---
Assessment and Plan Assessment and plan (1) Acute cerebrovascular accident: Code(s): I63.9 - Cerebral infarction, unspecified Status: Acute (2) Hyperlipidemia: Code(s): E78.5 - Hyperlipidemia, unspecified Status: Acute Plan No focal deficits were noted. MRI of shows infarct involving the corpus callosum to the right of the midline in addition the ventricles are prominent in the also diffuse moderate white matter changes noted. Echocardiogram was normal. CT scan and CT angiogram of the head and neck which did not show any significant abnormalities. Patient is currently on aspirin 81 mg a day, Plavix 75 mg a day, and Lipitor 40 mg a day. Hemoglobin A1c was slightly high at 5.7. LDL was high at 157. Serum B12 was 502. The presentation of driving back and forth for 10 hours is indeed intriguing but he did not have any driving accidents and has he seems to safe at this time. His heart rate was 48 when he arrived and is taken off the metoprolol and the heart rate increased to 75 now. no other metabolic problems were noted. I would suggest to continue the dual antiplatelets and statin for now and I would be glad to follow him in my office in 6 weeks time. I explained the findings the patient and his girlfriend. Risk factor management and attempt to keep the LDL under 65 are recommended. It does appear to have a borderline or prediabetic state. Consult date: 04/25/25 HPI: Giancarlo Clark Jr. is a 69 year old male who presented to the hospital on 04/22/2025 with the mental status. Patient apparently was driving for 10 hours without even knowing where he was going. He states that he went to [place] and came back in does not know why. The patient does not have history of such episodes in the past. He did not have any driving accident. The emergency room notes indicate the patient was correct for the year and the date of was incorrect for the month. He did not have any weakness in either side of the body nor he had any other significant abnormal findings. A CT scan of brain and CT angiogram of the head and neck were performed which did not show any significant abnormalities. Patient is currently on aspirin, Plavix and Lipitor. His LDL was 157. Serum B12 level was 502. His heart rate was low at 48 and he was taken off metoprolol and today his heart rate is 75. MRI of the brain was performed shows acute infarct in region of corpus callosum to the right of the midline. In addition some white matter changes were noted In both cerebral hemispheres. Patient is currently doing fairly well and denies any weakness or difficulty speech or swallowing or thinking. He is able to get around. Is a live-in girlfriend also talked to me little bit later and I explained to her the findings after had a portion to review him and the chart. Review of Systems 2 Review of Systems: No history of recent febrile illness or head trauma. History of previous stroke or myocardial infarction. Patient used to smoke 22 years ago. He rarely drinks alcohol. Reason major injury to the right elbow in the past for which he had major reconstruction surgeries. there is no history of previous psychiatric problems. He also has had a psychiatric evaluation on this admission and today psychiatrist advise neurological evaluation. [facility] Past Medical History Medical History (Updated 04/25/25 @ 13:11 by Steve Dubose MD) Hyperlipidemia Acute cerebrovascular accident Sprain of right elbow Metabolic syndrome Encounter for screening for cardiovascular disorders Acute midline low back pain with left-sided sciatica Hyperglycemia Hypertension Surgical History Surgical History History of bilateral knee replacement History of orthopedic surgery Right upper extremity reconstruction Family History Family History Mother Family history of diabetes mellitus in first degree relative Sibling Carcinoma of colon Uterine cancer Social History Social History Smoking packs per day: 1 Smoking cigarettes per day: 20.0 Years smoked: 20 Smoking pack-years: 20.00 Smoking status: Former smoker Tobacco type: cigarettes Second hand tobacco smoke exposure: Yes Smoking end date: 08/15/02 Alcohol intake: current Drinks per week: 1 Substance use: current Substance use type: marijuana Other substance usage details: 3x weekly Last use: 04/20/25 Do You Feel Safe in your Home?: Yes Lack of Transportation: No Lack of Food: Never True Current Housing: I Have Housing Concerned About Future Housing: No Difficulty Paying Gas/Electric Bills: No Difficulty Paying for Meds: No Currently Unemployed: No Education: High School Diploma/GED Difficulty w/ Childcare or Family Care: No Living arrangements: with family Spiritual care concerns: No Meds Home Medications and Allergies Home Medications ?Medication ?Instructions ?Recorded ?Confirmed ?Type naproxen 375 mg tablet 375 mg PO BID #14 tabs 05/18/23 04/22/25 Rx lisinopril 20 See Rx Instructions .Route 11/22/24 04/22/25 Rx mg-hydrochlorothiazide 12.5 mg .COMPLEX #180 tabs tablet metoprolol succinate 50 mg 50 mg PO DAILY #90 tabs 11/22/24 04/22/25 Rx tablet,extended release 24 hr acetaminophen 500 mg tablet 1,000 mg (2 x 500 mg) PO Q6H PRN 12/28/24 04/22/25 Rx (Tylenol Extra Strength) pain #50 tabs Allergies Allergy/AdvReac Type Severity Reaction Status Date / Time Penicillins Allergy Unknown Anaphylaxis Verified 04/22/25 15:45 Vital Signs Vital Signs - 24 hr 04/24/25 14:42 04/24/25 16:00 04/24/25 20:00 Temperature 97.5 F L Pulse Rate 63 63 59 L Respiratory Rate 18 Blood Pressure 132/61 Pulse Oximetry 97 Oxygen Delivery 04/24/25 21:18 04/24/25 23:11 04/25/25 00:00 Temperature 97.6 F Pulse Rate 70 59 L Respiratory Rate 18 Blood Pressure 120/66 Pulse Oximetry 98 95 Oxygen Delivery Room Air 04/25/25 03:49 04/25/25 04:00 04/25/25 08:00 Temperature 97.9 F Pulse Rate 63 66 75 Respiratory Rate 18 Blood Pressure 121/71 Pulse Oximetry 96 Oxygen Delivery 04/25/25 08:04 04/25/25 09:20 04/25/25 12:00 Temperature Pulse Rate 91 Respiratory Rate Blood Pressure Pulse Oximetry Oxygen Delivery Room Air Room Air Exam 2 Const: General: cooperative, well developed and alert O rientation/consciousness: oriented to person, oriented to place, oriented to time and patient oriented x3 Other: When asked to name 5 colors he did 5/5. When asked to name 5 cities he did 5/5. He is able to tell the month and date and year. This is fairly alert and cooperative. HENMT: Head: atraumatic Mouth: Yes oropharynx normal Eyes: Alignment and Position: position normal Pupils: Equal, round and reactive pupils present EOM: EOMs intact bilaterally Neck: Neck: supple Resp: Effort & Inspection: normal respiratory effort Cardio: Rate: regular rate Rhythm: regular rhythm Skin: General skin exam: normal color Neuro: General: oriented to person, oriented to place, oriented to time, patient oriented x3 and Unable to assess gait Cranial nerves: Yes CN's II-XII intact bilaterally, Yes facial sensation intact/muscles of mastication intact, Yes Equal, round and reactive pupils present, Yes Bilaterally intact EOM present, Yes Nystagmus not present, Yes facial symmetry, Yes Midline tongue present, Yes Symmetric palate elevation present and Yes Ability to bilaterally elevate shoulders present Cognition (Neuro): normal cognition Speech: n ormal speech Motor exam (neuro): 5/5 motor strength present throughout, Motor fasciculations not present, Normal motor muscle tone present throughout and Motor abnormalities not present Sensory Exam: normal sensation C oordination: [id number] test normal and Normal rapid alternating movements of the distal upper extremity present (Neuro) Other: Scars noted on the right elbow very has had reconstruction surgery In the past.. Results Labs 04/25/25 04:46 04/25/25 04:46 Labs: Short CBC 04/25/25 Range/Units 04:46 WBC 9.0 (4.5-10.0) K/mm3 Hgb 17.0 (14.0-18.0) g/dL Hct 49.2 (42.0-52.0) % Plt Count 315 (150-375) k/mm3 BMP 04/25/25 04:46 Sodium 138 Potassium 3.7 Chloride 101 Carbon Dioxide 28 BUN 14 Creatinine 0.95 Glucose 117 H Calcium 9.7 Liver Function 04/25/25 Range/Units 04:46 Total Bilirubin 0.9 (0.2-1.3) mg/dL AST 26 (17-59) U/L ALT 12 (6-50) U/L Alkaline Phosphatase 77 (38-126) U/L Albumin 4.6 (3.5-5.1) g/dL Imaging Attestation: I personally reviewed and interpreted this imaging study as follows: ( MRI of the brain) My impression: an acute infarct noted to the right of the midline overlying the corpus callosum. In addition the ventricles appear prominent. Also diffuse moderate white matter changes were noted. Radiologist's impression: Same
--- NOTE | 2025-04-25 14:01 | PCSTNOTE ---
Completed initial speech/language communication evaluation. Overall, Giancarlo is demonstrating mild-moderate deficits with language and cognitive ability. Patient and family were encouraged to seek ST services, even outside of this acute setting to help with memory, problem solving and functional reading and writing tasks. He is a candidate for high level tasks. Direct skilled speech therapy is recommended 3-5x /week.
--- NOTE | 2025-04-25 14:17 | P.DS_ITS ---
DS: Admitting Diagnosis Discharge Date 04/25/25 Admitting Diagnosis AMS DS: Discharge Diagnosis Discharge Diagnosis (1) Acute cerebrovascular accident: Code(s): I63.9 - Cerebral infarction, unspecified Status: Acute Plan Altered mental status DS: Summary Hospital Course Hospital Course: 69-year-old male past medical history hypertension hyperglycemia presents the hospital with altered mental status. Patient states he has no complaints. He says sometimes he is a little forgetful. He is flat affect. Per the the patient went to the [facility] on Friday and was gone for several hours. The police ca me to her house to let her know that he was pulled over today for careless driving and took into the hospital for evaluation. The hospital due to CT with no acute findings and lab work showed no acute findings so he went home with his with recommendations to follow-up with a neurologist. She states that today she was talking to the neurologist's office in after long discussion with the racing secretary she was encouraged to bring him back to the hospital. So she did. She states that over the last 4 5 months he has been acting a little different. 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 He has also been having trouble with balance. She states that sometimes he takes his medications and sometimes he does not. MRI showed Acute right corpus callosum stroke, ECHO showed EF 60-65% with normal diastolic function. Neurology evaluated and recommended pLavix, ASPirin adn Lipitor. PT/OT?St consulted and evaluated patient, will continue with outpatient ST as recommended Psych was consulted for possibel depression however they evaluated and ruled out Depression Patient will follow up with PCP in 3-5 days, neurology as instructed Time Spent with Patient Time attestation: Total time spent providing and/or coordinating discharge services: DS: Data Data Completed and Pending Labs on day of discharge: Labs from last 24 hours 04/25/25 04:46 WBC 9.0 RBC 5.40 Hgb 17.0 Hct 49.2 MCV 91.1 MCH 31.5 MCHC 34.6 RDW 13.3 Plt Count 315 MPV 9.3 Immature Gran % (Auto) 0.3 Neut % (Auto) 70.5 Lymph % (Auto) 15.4 L [place] % (Auto) 8.3 Eos % (Auto) 4.7 H Baso % (Auto) 0.8 Lymph # (Auto) 1.39 [place] # (Auto) 0.8 H Eos # (Auto) 0.4 H Baso # (Auto) 0.1 Abs Immat Gran (auto) 0.03 Absolute Neuts (auto) 6.4 Absolute Nucleated RBC 0.000 Nucleated RBC % 0.0 Sodium 138 Potassium 3.7 Chloride 101 Carbon Dioxide 28 Anion Gap 9 BUN 14 Creatinine 0.95 Estim Creat Clear Calc 60 Estimated GFR > 60 Glucose 117 H Hemoglobin A1c 5.9 H Calcium 9.7 Magnesium 2.1 Total Bilirubin 0.9 AST 26 ALT 12 Alkaline Phosphatase 77 Total Protein 7.9 Albumin 4.6 Triglycerides 116 Cholesterol 243 H LDL Cholesterol Direct 157 HDL Direct 55 Discharge Plan Discharge Attending physician on discharge: Manny Smalls Consulting providers: Steve Dubose; Chase Choudhury Discharging Clinician: Manny Smalls Anticipated Discharge Date/Time: 04/25/25 14:14 Patient Disposition: Home Activity: as tolerated Diet: as tolerated and heart healthy Patient Instructions: Antibiotic Form Patient Language: Belarusian Stand Alone Forms: General Discharge Information Follow-up/Referrals: Zia Francisco MD [Primary Care Provider] - (F/u with PCP in 3-5 day ) Steve Dubose MD [Physician] - (F/u with Neurology as instructed ) Chase Choudhury MD [Physician] - (F/u with Psych as instructed ) Discharge Medications: New atorvastatin 40 mg Tablet 40 mg PO DAILY 30 Days Qty: 30 1RF aspirin 81 mg Tablet,Delayed Release (Dr/Ec) 81 mg PO QAM 30 Days Qty: 30 1RF clopidogrel 75 mg Tablet 75 mg PO QAM 30 Days Qty: 30 1RF Continued lisinopril-hydrochlorothiazide 20-12.5 mg tablet See Rx Instructions .ROUTE .COMPLEX Qty: 180 2RF Dose Instruction: Take 2 tablets by mouth once daily Rx Instructions: Take 2 tablets by mouth once daily metoprolol succinate 50 mg tablet extended release 24 hr 50 mg PO DAILY Qty: 90 2RF acetaminophen [Tylenol Extra Strength] 500 mg tablet 1,000 mg PO Q6H PRN (Reason: pain) Qty: 50 0RF Discontinued naproxen 375 mg tablet 375 mg PO BID Qty: 14 0RF Date of admission: 04/22/25 18:15 Primary Care Provider: Zia Francisco Admitting Provider: Manny Smalls Attending physician on admission: Manyn Smalls Condition: Stable
[2025-04-25 14:21] VITALS: BP 132/96; PULSE 108; RESP 18; TEMP 36.4; O2SAT 100
== END 2025-04-25 15:20 | disposition home or self-care (01) ==
LOC: ANHED 18:35 → ANH2MED 18:38
PROVIDERS: Nurse Practitioner Gerontology; Admitting Provider Internal Medicine; Emergency Provider Emergency Medicine; PCP Emergency Medicine; Visit Provider Internal Medicine
DX: I63.9 Cerebral infarction, unspecified (principal); E78.5 Hyperlipidemia, unspecified; R00.1 Bradycardia, unspecified; I10 Essential (primary) hypertension; F12.90 Cannabis use, unspecified, uncomplicated; Z87.891 Personal history of nicotine dependence; Z79.899 Other long term (current) drug therapy; Z20.822 Contact with and (suspected) exposure to COVID-19
CPT/HCPCS: 36415; 70496; 70498; 70553; 71045; 80048; 80053; 80061; 80307; 81001; 82607; 82746; 83036; 83605; 83735; 85025; 85610; 85652; 85730; 86140; 87637; 92507; 92523; 93005; 93306; 96372; 96374; 96375; 97161; 97165; 99285; A9270; A9577; G0378; J1650; Q9967

== ENCOUNTER 2025-04-25 17:25 | Inpatient (IN) | payer MEDICARE, SELFPAY ==
--- NOTE | ~2025-04-25 | XR_ITS ---
CHEST RADIOGRAPH, PA AND LATERAL CLINICAL HISTORY: syncope . COMPARISON: 04/22/2025 TECHNIQUE: PA and lateral views of the chest. FINDINGS The cardiomediastinal silhouette is unremarkable. The lungs are clear. IMPRESSION: No focal infiltrate or effusion. Reviewed, dictated and finalized at location A.
--- NOTE | ~2025-04-25 | CT_ITS ---
History: Syncope PROCEDURE: CT head without contrast. COMPARISON: 04/22/2025. Reference is also made to an MRI examination of the brain, performed the same day demonstra ting findings consistent with amyloid angiopathy TECHNIQUE: Axial imaging of the head performed from the skull base to the vertex without IV contrast. Sagittal a nd coronal reformations obtained. DLP: 757 mGy-cm FINDINGS: The ventricles are enlarged. The dilatation of the ventricles is proportional to the degree of sulcal prominence, not uncommon in the senescent brain. Decreased attenuation is identified within the periventricular white matter, likely secondary to micr ovascular ischemic disease, in a patient of this age. Additional areas of decreased attenuation are i dentified bilaterally, right greater than left consistent with prior cerebral infarction. There is no mass, mass effect or midline shift. There is no abnormal extra-axial fluid collection or intracranial hemorrhage. Visualized paranasal sinuses are clear. The mastoid air cells are well aerated. No acute displaced fractures within the overlying cranium. Impression: No acute intracranial hemorrhage or suspicious mass effect. Reviewed, dictated and finalized at location A. Impression: No acute intracranial hemorrhage or suspicious mass effect.
--- NOTE | ~2025-04-25 | CT_ITS ---
CTA brain carotid Ordering provider: Jaycee Chery PA-C History: . sz episode, recent cva, new onset afib . 69-year-old gentleman with absence seizure activi ty post recent CVA presents with new onset A. fib for further evaluation. Comparison: 04/22/2025 Technique: CT angiogram head and neck was performed following timed intravenous injection of contrast . Thin slice axial images and reformatted coronal images were obtained. Three dimensional reformatted images of the brain were also obtained using a [employer] workstation. DLP: 1095.7 mGy-cm FINDINGS: HEAD: --ANTERIOR AND MIDDLE CEREBRAL ARTERIES AND BRANCHES: Normal caliber and contour. --INTERNAL CAROTID ARTERIES: Moderate atheromatous disease bilaterally resulting in mild stenosis but no occlusion. --BASILAR ARTERY AND BRANCHES: Mild atheromatous disease but no stenosis or occlusion. --POSTERIOR CEREBRAL ARTERIES: Normal caliber and contour --POSTERIOR COMMUNICATING ARTERIES: Not well visualized likely related to congenital absence or small size. --ANEURYSM: None visualized. --BRAIN: Please refer to report of CT head performed the same day. --BONES AND SUPERFICIAL SOFT TISSUES: Please refer to report of CT head performed the same day. --PARANASAL SINUSES AND MASTOIDS: Please refer to report of CT head done the same day. NECK: --RIGHT CERVICAL CAROTID SYSTEM: Mild atheromatous disease of the carotid bulb and proximal internal carotid artery without significant stenosis. Percent stenosis per NASCET criteria is 0% No carotid d issection. Soft plaque is identified within the right carotid bulb, just beyond its origin, not visua lized on the previous study. --LEFT CERVICAL CAROTID SYSTEM: Mild atheromatous disease of the carotid bulb and proximal internal c arotid artery without significant stenosis. Percent stenosis per NASCET criteria is 19% No carotid d issection. Significant tortuosity is identified within the left internal carotid artery, following its origin. --VERTEBRAL ARTERIES: Normal caliber and contour. The left vertebral artery is dominant. --VISUALIZED AORTIC ARCH AND BRANCHING VESSELS: Mild atheromatous disease but no significant stenosis . --SOFT TISSUES: Unremarkable --CERVICAL SPINE: Age appropriate degenerative changes. IMPRESSION: 1. Percent stenosis per NASCET criteria is 0% on the right and 19% on the left. 2. Soft plaque is identified within the right carotid bulb just beyond its origin, not visualized on the previous study. Reviewed, dictated and finalized at location A. IMPRESSION: 1. Percent stenosis per NASCET criteria is 0% on the right and 19% on the lef t. 2. Soft plaque is identified within the right carotid bulb just beyond its john gin, not visualized on the previous study.
[2025-04-25 17:26] VITALS: BP 112/72; PULSE 118; RESP 17; O2SAT 96
--- NOTE | 2025-04-25 17:36 | ECG_ITS ---
Test Date: 2025-04-25 17:43:34 Measurements Intervals [place] Rate: 120 P: 0 NV: 0 QRS: -32 QRSD: 95 T: 22 QT: 357 QTc: 506 Interpretive Statements ATRIAL FIBRILLATION WITH RAPID VENTRICULAR RESPONSE LEFT AXIS DEVIATION CONSIDER INFERIOR INFARCT, AGE INDETERMINATE BASELINE ARTIFACT- I, II, III, AVR, AVL, AVF, V1-V6 ABNORMAL ECG Compared to ECG 04/23/2025 07:54:42 SINUS BRADYCARDIA NO LONGER PRESENT Electronically Signed On 04-25-2025 19:54:43 CDT by Kirill Portillo D.O.
[2025-04-25 18:00] LABS: Hematocrit 42.7 % (42.0-52.0); Hemoglobin 15.3 g/dL (14.0-18.0); Immature Granulocyte Percent A 0.5 % (0-0.5); Lymphocytes Absolute Auto 1.77 K/mm3 (0.9-3.2); Mean Corpuscular HGB Conc 35.8 g/dl (32-36); Mean Corpuscular Hemoglobin 31.9 pg (26-34); Mean Corpuscular Volume 89.1 fl (80-100); Nucleated Red Blood Cells Absolute Auto 0.000 K/mm3 (0.0-0.012); Nucleated Red Blood Cells Perc 0.0 % (0.0-0.2); Platelet Count Result 322 k/mm3 (150-375); Red Blood Count 4.79 M/mm3 (4.6-6.20); White Blood Count 12.9 K/mm3 (4.5-10.0)
--- OUTSIDE RECORDS SUMMARY | 2025-04-25 18:24 | XMS_ITS | Encounter Summary ---
[facility] Organization [facility] Address [address] [place] [address] Care Team Providers Care Director Quality Assurance Name Role Phone Unavailable Primary Care Provider [...] on file Legal Sex Male 5:12 AM [employer] Gender Identity Not on file Sexual Orientation [...] HEMATOCRIT 28.8(L) 40.0 - 48.0 % [facility] [place] [place] HEMOGLOBIN 9.3(L) 13.6 - 16.5 g/dL [facility] [place] Blood specimen (specimen) 01/10/2008 5:54 AM CDT 01/10/2008 7:00 AM CDT us Govind Sotelo MD HEMATOLOGY ORDERABLES Final Result [facility] [place] [address] [place] [address] * HEMOGLOBIN AND HEMATOCRIT (12/25/2007 10:57 AM CDT) HEMATOCRIT 46.3 40.0 - 48.0 % [facility] [place] HEMOGLOBIN 15.6 13.6 - 16.5 g/dL [facility] [place] Blood specimen (specimen) 12/25/2007 10:57 AM CDT 12/25/2007 11:58 AM CDT us Govind Sotelo MD HEMATOLOGY ORDERABLES Final Result [facility] [place] [address] [place] [address] * (ABNORMAL) BASIC METABOLIC PANEL (12/25/2007 10:57 AM CDT) CHLORIDE 100 96 - 108 mmol/L [facility] [place] GLUCOSE 124(H) 65 - 99 mg/dL [facility] [place] SODIUM 140 135 - 145 mmol/L [facility] [place] CALCIUM 9.6 8.4 - 10.2 mg/dL [facility] [place] CO2 28 22 - 30 mmol/L [facility] [place] CREATININE 0.86 0.67 - 1.17 mg/dL [facility] [place] POTASSIUM 3.9 3.5 - 4.9 mmol/L [facility] [place] BUN 10 6 - 20 mg/dL [facility] [place] GFR, >60 >=60 mL/min/1. 7 sq meter [facility] [place] GFR >60 >=60 mL/min/1. 7 sq meter [facility] [place] Comment: Estimated GFR rate interpretative information for both Americans and non- Americans is available on the [facility] at: [email or web address] Select: Lab Policies and Procedures Select: Reference Ranges - GFR Blood specimen (specimen) 12/25/2007 10:57 AM CDT 12/25/2007 11:58 AM CDT us Govind Sotelo MD CHEMISTRY ORDERABLES Edited [facility] [place] [address] [place] [address] documented in this encounter Visit Diagnoses Diagnosis Osteoarthrosis, unspecified whether generalized or localized, lower leg documented in this encounter
--- OUTSIDE RECORDS SUMMARY | 2025-04-25 18:24 | XMS_ITS | Clinical Summary ---
Author Organization [facility] Address [address] [place] [phone] Phone Care Team Providers Care Ghost Writer Name Role Phone Provider, None Primary Care Provider Unavailabl e Allergies Active Allergy Reactions Criticality Noted Date Comments Penicillins Other (see Comments) 04/18/2025 Encounters Date Type Department Care Team Description 04/18/2025 5:25 PM CDT - 04/18/2025 9:53 PM [facility]T [facility] [address] [place] [phone] Leo Navarrete DO Altered mental status, [...] 1.003 - 1.030 04/18/2025 7:41 PM CDT [facility] URINE PH 5.5 5.0 - 9.0 04/18/2025 7:41 PM CDT [facility] WBC ESTERASE Negative Negative 04/18/2025 7:41 PM CDT [facility] NITRITE Negative Negative 04/18/2025 7:41 PM CDT [facility] PROTEIN, RANDOM URINE Trace(A) Negative 04/18/2025 7:41 PM CDT [facility] URINE GLUCOSE, QUAL Negative Negative 04/18/2025 7:41 PM CDT [facility] URINE KETONES Trace(A) Negative 04/18/2025 7:41 PM CDT [facility] UROBILINOGEN 0.2 0.2 , 1.0 , Normal mg/dL 04/18/2025 7:41 PM CDT [facility] URINE BLOOD 2+(A) Negative emerson/ul 04/18/2025 7:41 PM CDT [facility] URINALYSIS COLOR Dark Yellow 04/18/2025 7:41 PM CDT [facility] URINALYSIS CLARITY Clear 04/18/2025 7:41 PM CDT [facility] WBC (Urine) 21-50(A) Negative, 0-5 /hpf 04/18/2025 7:41 PM CDT [facility] URINE RBC'S 3-5(A) Negative, 0-2 /hpf 04/18/2025 7:41 PM CDT [facility] EPITHELIAL CELLS Occasional /lpf 04/18/2025 7:41 PM CDT [facility] BACTERIA, URINE Few(A) Negative /hpf 04/18/2025 7:41 PM CDT [facility] URINE MUCOUS Few 04/18/2025 7:41 PM CDT [facility] Urine URINE SPECIMEN / Unknown Non-Phlebotomy Collection / Unknown 04/18/2025 7:03 PM CDT 04/18/2025 7:09 PM CDT Leo Navarrete DO URINE ORDERABLES Final R esult [facility] [address] [place] [phone], * (ABNORMAL) Urine Drug Screen (04/18/2025 7:03 PM CDT) UR AMPHETAMINE NON DETECTED NON DETECTED 04/18/2025 7:23 PM CDT [facility] Comment: FOR MEDICAL USE ONLY. CUTOFF CONCENTRATION FOR DETECTED RESULT: AMPHETAMINE: 500 NG/ML UR BARBITURATE NON DETECTED NON DETECTED 04/18/2025 7:23 PM CDT [facility] Comment: FOR MEDICAL USE ONLY. CUTOFF CONCENTRATION FOR DETECTED RESULT: BARBITUATES: 200 NG/ML UR BENZODIAZEPINES NON DETECTED NON DETECTED 04/18/2025 7:23 PM CDT [facility] Comment: FOR MEDICAL USE ONLY. CUTOFF CONCENTRATION FOR DETECTED RESULT: BENZODIAZAPINE: 200 NG/ML UR COCAINE METABOLITE NON DETECTED NON DETECTED 04/18/2025 7:23 PM CDT [facility] Comment: FOR MEDICAL USE ONLY. CUTOFF CONCENTRATION FOR DETECTED RESULT: COCAINE: 150 NG/ML UR OPIATES NON DETECTED NON DETECTED 04/18/2025 7:23 PM CDT [facility] Comment: FOR MEDICAL USE ONLY. CUTOFF CONCENTRATION FOR DETECTED RESULT: OPIATES: 300 NG/ML UR PHENCYCLIDINE NON DETECTED NON DETECTED 04/18/2025 7:23 PM CDT [facility] Comment: FOR MEDICAL USE ONLY. CUTOFF CONCENTRATION FOR DETECTED RESULT: PCP: 25 NG/ML UR CANNABINOID DETECTED(A) NON DETECTED 04/18/2025 7:23 PM CDT [facility] Comment: FOR MEDICAL USE ONLY. CUTOFF CONCENTRATION FOR DETECTED RESULT: THC (MARIJUANA): 50 NG/ML Urine Non-Phlebotomy Collection / Unknown 04/18/2025 7:03 PM CDT 04/18/2025 7:09 PM CDT Leo Navarrete DO URINE ORDERABLES Final R esult [facility] [address] [place] [phone], * XR CHEST SINGLE VIEW PORTABLE (04/18/2025 6:34 PM CDT) Anatomical Region Laterality Modality Chest N/A Digital Radiogra phy 04/18/2025 6:34 PM CDT Impressions 04/19/2025 8:32 AM CDT IMPRESSION: No radiographic evidence of acute cardiopulmonary disease. Narrative 04/19/2025 8:32 AM CDT DICTATING PHYSICIAN: Home Vee M.D. - [facility] EXAMINATION: Chest x-ray, [...] 04/19/2025 DICTATING PHYSICIAN: Home Vee M.D. - [facility] EXAMINATION: Chest x-ray, 1 [...] No radiographic evidence of acute cardiopulmonary disease. Leo Navarrete DO [facility] DIAGNOSTIC ORDERABLE S Final Result * CT HEAD OR BRAIN WO CONTRAST (04/18/2025 6:33 PM CDT) Anatomical Region Laterality Modality Head N/A Computed Tomogra phy 04/18/2025 6:20 PM CDT Impressions 04/19/2025 8:55 AM CDT IMPRESSION:. 1. No acute intracranial abnormality, posttraumatic or otherwise, by noncontrast CT criteria at this time. Preliminary report and any related to communication were provided by of [facility]'s after-hours service, as documented in the [...] A Negative Negative 04/18/2025 7:25 PM CDT [facility] FLU B Negative Negative 04/18/2025 7:25 PM CDT [facility] RESP SYNC VIRUS Negative Negative, Invalid 04/18/2025 7:25 PM CDT [facility] SARSCOV2 NOT DETECTED (Reference Range for this test is Not Detected) 04/18/2025 7:25 PM CDT [facility] Comment:This test was perfor med by a Reverse Pad Hand PCR Method. Nasopharyngeal NASOPHARYNGEAL SWAB / Unknown Non-Phlebotomy Collection / Unknown 04/18/2025 6:15 PM CDT 04/18/2025 6:21 PM CDT us Leo Navarrete DO MICROBIOLOGY - GENERAL O RDERABLES Final Result Performing Organization Address [facility]/ZIP Co de Phone Number [facility] [address] [place] [address], * Julio Top Tube (04/18/2025 6:15 PM CDT) Blood Venous Catheter (IV) / Unknown 04/18/2025 6:15 PM CDT 04/18/2025 6:19 PM CDT us Leo Navarrete DO CHEMISTRY ORDERABLES Fin al Result Performing Organization Address [facility]/ZIP Co de Phone Number [facility] [address] [place] [address], * Gold Top Tube (04/18/2025 6:15 PM CDT) Blood Venous Catheter (IV) / Unknown 04/18/2025 6:15 PM CDT 04/18/2025 6:23 PM CDT Leo Navarrete DO CHEMISTRY ORDERABLES Fin al Result Performing Organization Address [facility]/ZIP Co de Phone Number [facility] [address] [place] [address], * Blue Top Tube (04/18/2025 6:15 PM CDT) Blood Venous Catheter (IV) / Unknown 04/18/2025 6:15 PM CDT 04/18/2025 6:23 PM CDT us Leo Navarrete DO HEMATOLOGY ORDERABLES Fi nal Result Performing Organization Address [facility] Co de Phone Number [facility] [address] [place] [address], * (ABNORMAL) CBC with Auto Differential (04/18/2025 6:15 PM CDT) WBC 8.90 4.00 - 12.00 10(3)/mcL 04/18/2025 6:35 PM CDT [facility] RBC 4.96 4.40 - 5.80 10(6)/mcL 04/18/2025 6:35 PM CDT [facility] HEMOGLOBIN (HGB) 15.7 13.0 - 16.5 g/dL 04/18/2025 6:35 PM CDT [facility] HEMATOCRIT (HCT) 44.3 38.0 - 50.0 % 04/18/2025 6:35 PM CDT [facility] MCV 89.3 82.0 - 96.0 fL 04/18/2025 6:35 PM CDT [facility] MCH 31.7 26.0 - 32.0 pg 04/18/2025 6:35 PM CDT [facility] MCHC 35.4 31.0 - 36.0 g/dL 04/18/2025 6:35 PM CDT [facility] PLATELET COUNT 282 140 - 440 10(3)/mcL 04/18/2025 6:35 PM CDT [facility] RDW 13.2 11.8 - 15.5 % 04/18/2025 6:35 PM CDT [facility] MPV 9.5 8.0 - 12.6 fL 04/18/2025 6:35 PM CDT [facility] NEUTROPHILS 74.3(H) 40.0 - 68.0 % 04/18/2025 6:35 PM CDT [facility] LYMPHOCYTES 13.5(L) 19.0 - 49.0 % 04/18/2025 6:35 PM CDT [facility] MONOCYTES 8.7 3.0 - 13.0 % 04/18/2025 6:35 PM CDT [facility] EOSINOPHILS 2.5 0.0 - 8.0 % 04/18/2025 6:35 PM CDT [facility] BASOPHILS 0.8 0.0 - 1.0 % 04/18/2025 6:35 PM CDT [facility] IMMATURE GRANULOCYTE 0.2 0.0 - 0.4 % 04/18/2025 6:35 PM CDT [facility] Comment:Immature Granulocyte s includes Metamyelocytes, Myelocytes, and Promyelocytes. ABSOLUTE NEUTROPHILS 6.62(H) 1.40 - 5.30 10(3)/mcL 04/18/2025 6:35 PM CDT [facility] ABSOLUTE LYMPHOCYTES 1.20 0.90 - 3.30 10(3)/mcL 04/18/2025 6:35 PM CDT [facility] ABSOLUTE MONOCYTES 0.77 0.10 - 0.90 10(3)/mcL 04/18/2025 6:35 PM CDT [facility] ABSOLUTE EOSINOPHIL 0.22 0.00 - 0.50 10(3)/mcL 04/18/2025 6:35 PM CDT [facility] ABSOLUTE BASOPHILS 0.07 0.00 - 0.10 10(3)/mcL 04/18/2025 6:35 PM CDT [facility] ABSOLUTE IMMATURE GRANULOCYTE 0.02 0.00 - 0.03 10 (3) mcL. 04/18/2025 6:35 PM CDT [facility] NRBC PER 100 WBC 0 04/18/20 6:35 PM CDT [facility] Blood Venous Catheter (IV) / Unknown 04/18/2025 6:15 PM CDT 04/18/2025 6:23 PM CDT us Leo Navarrete DO HEMATOLOGY ORDERABLES Fi nal Result Performing Organization Address City/[facility]/ZIP Co de Phone Number [facility] [address] [place] [phone], [place] [phone] * ETOH Level (04/18/2025 6:15 PM CDT) Pathologist [facility] ETHANOL <10 <10 mg/dL 04/18/2025 6:42 PM CDT [facility] Blood Venous Catheter (IV) / Unknown 04/18/2025 6:15 PM CDT 04/18/2025 6:23 PM CDT Narrative [facility] - 04/18/2025 6:42 PM CDT FOR MEDICAL USE ONLY us Leo Navarrete DO CHEMISTRY ORDERABLES Fin al Result Performing Organization Address [facility]/ZIP Co de Phone Number [facility] [address] [place] [phone], [place] [phone] * (ABNORMAL) CMP (04/18/2025 6:15 PM CDT) SODIUM 144 136 - 145 mmol/L 04/18/2025 6:45 PM CDT [facility] POTASSIUM 3.3(L) 3.5 - 5.1 mmol/L 04/18/2025 6:45 PM CDT [facility] CHLORIDE 107 98 - 107 mmol/L 04/18/2025 6:45 PM CDT [facility] CO2, VENOUS 26 22 - 30 mmol/L 04/18/2025 6:45 PM CDT [facility] ANION GAP 11.0 <18.0 mmol/L 04/18/2025 6:45 PM CDT [facility] GLUCOSE 122(H) 70 - 99 mg/dL 04/18/2025 6:45 PM CDT [facility] BUN 18 8 - 26 mg/dL 04/18/2025 6:45 PM CDT [facility] CREATININE, BLOOD 1.18 0.70 - 1.30 mg/dL 04/18/2025 6:45 PM CDT [facility] BUN/CREATININE RATIO 15 12 - 20 ratio 04/18/2025 6:45 PM CDT [facility] TOTAL PROTEIN 7.2 6.0 - 8.0 g/dL 04/18/2025 6:45 PM CDT [facility] ALBUMIN 4.6 3.5 - 5.0 g/dL 04/18/2025 6:45 PM CDT [facility] A/G RATIO 1.8 1.0 - 2.2 04/18/2025 6:45 PM CDT [facility] CALCIUM 9.5 8.7 - 10.5 mg/dL 04/18/2025 6:45 PM CDT [facility] T BILI 0.5 0.2 - 1.2 mg/dL 04/18/2025 6:45 PM T [facility] SGOT (AST) 24 <43 U/L 04/18/2025 6:45 PM CDT [facility] SGPT (ALT) 13 <56 U/L 04/18/2025 6:45 PM CDT [facility] ALKALINE PHOSPHATASE 81 40 - 150 U/L 04/18/2025 6:45 PM CDT [facility] GFR, ESTIMATED >60 >=60 04/18/2025 6:45 PM CDT [facility] Comment: Creatinine Clearance is the preferred criteria for selecting drug dose adjustments in renally impaired patients. The GFR is provided as additional pertinent clinical information. GFR is reported in mL/min/1.73 sq m. Calculation based on the Chronic Kidney Disease Epidemiology Collaboration (CKD- EPI) equation refit without adjustment for race. GFR, EST. >60 >=60 025 6:45 PM CDT [facility] GFR, EST. NONAFRICAN >60 >=60 04/18/2025 6:45 PM CDT [facility] Blood Venous Catheter (IV) / Unknown 04/18/2025 6:15 PM CDT 04/18/2025 6:23 PM CDT us Leo Navarrete DO CHEMISTRY ORDERABLES Fin al Result [facility] [address] [place] [phone], * Blood Culture #2 (04/18/2025 6:13 PM CDT) Only the most recent of2 resultswithin the time period is included. CULTURE RESULTS NO GROWTH WITHIN 5 DAYS, FINAL RESULT 04/23/2025 7:00 PM CDT [facility] Culture BLOOD SPECIMEN / Unknown Venous Catheter (IV) / Unknown 04/18/2025 6:13 PM CDT 04/18/2025 6:22 PM CDT us Leo Navarrete DO MICROBIOLOGY - GENERAL O RDERABLES Final Result [facility] [address] [place] [address] from Last 3 Months Insurance MEDICARE C [employer] Care Teams Ghost Writer Relationship Specialty Start Date End Date Provider, None [place] PCP - General 04/18/25
--- OUTSIDE RECORDS SUMMARY | 2025-04-25 18:24 | XMS_ITS | Encounter Summary ---
Author Organization [facility] Address [address] [place] [address] Care Team Providers Care Nurse Receptionist Name Role Phone Unavailable Primary Care Provider [...] on file Legal Sex Male 5:12 AM LEATHER GRADER Gender Identity Not on file Sexual Orientation Not on file documented as of this encounter Plan of Treatment Not on file documented as of this encounter Procedures Procedure Name Priority Date/Time Associated Diagnosis Comments URINALYSIS WITH REFLEX CULTURE Routine 10/11/2007 8:25 AM LEATHER GRADER URINALYSIS W/REFLEX MICROSCOPIC Routine 10/11/2007 8:25 AM LEATHER GRADER HEMOGLOBIN AND HEMATOCRIT Routine 10/11/2007 7:00 AM LEATHER GRADER BASIC METABOLIC PANEL Routine 10/11/2007 7:00 AM LEATHER GRADER HEMOGLOBIN AND HEMATOCRIT Routine 10/10/2007 5:35 AM LEATHER GRADER HEMOGLOBIN AND HEMATOCRIT Routine 09/30/2007 9:16 AM LEATHER GRADER documented in this encounter Results * (ABNORMAL) URINALYSIS (10/11/2007 8:25 AM LEATHER GRADER) COLOR UA Pale Yellow INTERFAC E SYSTEM [...] 3 /HPF INTERFACE SYSTEM 10/11/2007 8:25 AM LEATHER GRADER us Mia Espinal MD URINE ORDERABLES Edited Performing Organization Address [facility] Phone Number INTERFACE SYSTEM Refer to clinic/hospital department * URINALYSIS WITH REFLEX CULTURE (10/11/2007 8:25 AM LEATHER GRADER) URINE CULTURE ORDER Culture ordered INTERFACE SYSTEM Comment: Criteria for a reflex culture include one or more of the following: Abn ormal nitrite, leukocyte esterase, WBCs or RBCs. Lack of qualifying criteria does not exclude the possiblity of a urinary tract infection. Dilute urine, drug interference, etc. may decrease the sensitivity of the criteria analytes. 10/11/2007 8:25 AM LEATHER GRADER us Mia Espinal MD URINE ORDERABLES Edited Performing Organization Address [facility] Phone Number INTERFACE SYSTEM Refer to clinic/hospital department * (ABNORMAL) BASIC METABOLIC PANEL (10/11/2007 7:00 AM LEATHER GRADER) GLUCOSE 120(H) 65 - 99 mg/dL INTERFACE [...] and non- Americans is available on the [facility] [place] [place] Intranet at: [email or web address] Select: Lab Policies and Procedures Select: Reference Ranges - GFR 10/11/2007 7:00 AM LEATHER GRADER us Mia Espinal MD CHEMISTRY ORDERABLES Edited Performing Organization Address City/[facility] Phone Number INTERFACE SYSTEM Refer to clinic/hospital department * (ABNORMAL) HEMOGLOBIN AND HEMATOCRIT (10/11/2007 7:00 AM LEATHER GRADER) HEMOGLOBIN 8.9(L) 13.6 - 16.5 g/dL INTERFACE SYSTEM HEMATOCRIT 26.4(L) 40.0 - 48.0 % INTERFACE SYSTEM 10/11/2007 7:00 AM LEATHER GRADER Result Andria Sotelo MD HEMATOLOGY ORDERABLES Edited Performing Organization Address [facility] Phone Number INTERFACE SYSTEM Refer to clinic/hospital department * (ABNORMAL) HEMOGLOBIN AND HEMATOCRIT (10/10/2007 5:35 AM LEATHER GRADER) HEMOGLOBIN 9.0(L) 13.6 - 16.5 g/dL INTERFACE SYSTEM HEMATOCRIT 27.3(L) 40.0 - 48.0 % INTERFACE SYSTEM 10/10/2007 5:35 AM LEATHER GRADER Result Andria Sotelo MD HEMATOLOGY ORDERABLES Edited Performing Organization Address [facility] Phone Number INTERFACE SYSTEM Refer to clinic/hospital department * HEMOGLOBIN AND HEMATOCRIT (09/30/2007 9:16 AM LEATHER GRADER) HEMOGLOBIN 14.3 13.6 - 16.5 g/dL INTERFACE SYSTEM HEMATOCRIT 41.4 40.0 - 48.0 % INTERFACE SYSTEM 09/30/2007 9:16 AM LEATHER GRADER Result Andria Sotelo MD HEMATOLOGY ORDERABLES Edited Performing Organization Address City/[facility] de Phone Number INTERFACE SYSTEM Refer to clinic/hospital department documented in this encounter Visit Diagnoses Diagnosis Osteoarthrosis, unspecified whether generalized or localized, lower leg documented in this encounter
--- OUTSIDE RECORDS SUMMARY | 2025-04-25 18:24 | XMS_ITS | Encounter Summary ---
Author Organization [facility] Address 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
--- OUTSIDE RECORDS SUMMARY | 2025-04-25 18:24 | XMS_ITS | Continuity of Care Document ---
Author Organization [facility] Address [address] [place] [address] [place] [address] Phone Care Team Providers Care Flag Signalman Name Role Phone Poncho Amin Unavailable Unavailable [...] Date Provider Providers Copied on Encounter [facility], [address] [place] [address] [address], [place], [place], [id number], [place] tel:[phone] [facility]3] No Information [address] Elo[address] Isaac. [address] [facility] [address], [place], [address], [place]. tel:[phone] Referring Provider: Derick Bush [facility] [address], [place], [address]. tel:[phone] [facility], [address] [place] [address] [address], [place], [place], [id number], [place] tel:[phone] [facility] No Information Oct-0 5-201 0 Eloisa Isaac. [address] [facility] , [address], [place], [place], [facility], . tel:[phone] Referring Provider: Poncho Wren, [address] [facility] [address], [place], [place], [facility]. tel:[phone] Office/outpat ient Visit, [facility], [address] [place] [address] [address], [place], [place], [id number], [place] tel:[phone] [facility]3] No Information Aug-2 3-201 0 Eloisa Isaac. [address] [facility] [address], [address], [place], [place], [facility], [place]. tel:[phone] Office/outpat ient Visit, [facility], [address] [place] [address] [address], [place], [place], [id number], [place] tel:[phone] [facility]3] No Information January-2 0-200 9 Eloisa Isaac. [address] [place], [place] [address], [address], [place], [place], [facility], [place]. tel:[phone] Office/outpat ient Visit, [facility], [address] [place] [address] [address], [place], [place], [id number], [place] tel:[phone] [facility]3] No Information Brett-0 7-200 8 Eloisa Isaac. [address] [facility] [address], [address], [place], [facility], [place]. tel:[phone] [facility], [address] [place] [address] [address], [place], [place], [id number], [place] tel:[phone] [facility]3] No Information Charles-2 3-200 8 Eloisa Isaac. [address] [facility] [address], [address], [place], [facility], [place]. tel:[phone] [facility], [address] [place] [address] [address], [place], [place], [id number], tel:[phone] [facility]3] No Information 8 Eloisa Isaac. [facility] , [address], [place], [place], [facility], . tel:[phone] [facility], [address] [place] [address] [address], [place], [place], [id number], tel:[phone] [facility] No Information 8 Eloisa Isaac. [address] [place], [place] [address], [address], [place], [place], [facility], . tel:[phone] Office/outpat ient Visit, [facility] [place] [place], [address] [place] [address] [address], [place], [place], [id number], tel:[phone] [facility]3] No Information 200 7 Eloisa Isaac. [address] [place], [place] [address], [address], [place], [facility], . tel:[phone] Referring Provider: Poncho Wren, [address] [place], [place] [address], [place], [facility]. tel:[phone] [facility], [address] [place] [address] [address], [place], [place], [id number], tel:[phone] [facility]3] No Information 0 200 7 Cortez OD Brad. [address] [place], [place] [address], [address], [place], [place], [facility], . tel:[phone] Family History Family Member Type Diagnosis Age At Onset No Information Payers Payer name Insurance type Covered democrat ID Authoriza tion(s) [place] [id number] Social History Type Description Quantity Date Captured [...]
--- OUTSIDE RECORDS SUMMARY | 2025-04-25 18:24 | XMS_ITS | Clinical Summary ---
Author Organization [facility] Address [address] [facility] Attn: Epic Prelude ADT MANDY NGUYEN [address] Care Team Providers Care Detective Supervisor Name Role Phone Unavailable Primary Care Provider Unavailabl e Social History Tobacco Use Types Packs/Day Years Used Date Smoking Tobacco: Never Assessed Sex and Gender Information Value Date Recorded Sex Assigned at Not on file Legal Sex Male 5:12 AM DAG SPRAYER Gender Identity Not on file Sexual Orientation [...]
--- OUTSIDE RECORDS SUMMARY | 2025-04-25 18:24 | XMS_ITS | Encounter Summary ---
Author Organization [email or web address] Address 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
[2025-04-25 18:25] LABS: Alanine Aminotransferase 13 U/L (6-50); Albumin Level 3.9 g/dL (3.5-5.1); Alkaline Phosphatase 79 U/L (38-126); Anion Gap 9 mmol/L (4-12); Aspartate Amino Transferase 22 U/L (17-59); Bilirubin,Total 0.8 mg/dL (0.2-1.3); Blood Urea Nitrogen 15 mg/dL (9-20); Calcium 8.7 mg/dL (8.4-10.2); Carbon Dioxide 25 mmol/L (22-30); Chloride 101 mmol/L (98-107); Estimated CRCL calculation 46 ml/min; Estimated Glomerular Filt Rate 58; Glucose 215 mg/dL (65-110); Potassium 3.5 mmol/L (3.4-5.0); Sodium 135 mmol/L (137-145); Total Protein 6.5 g/dL (6.3-8.2)
--- NOTE | 2025-04-25 18:25 | PC.NURSE ---
EDP ANGÉLICA Champion notified of patient BP being 85/53. New order placed for fluid bolus.
[2025-04-25] MEDS: SODIUM CHLORIDE 0.9% IV 1,000 ML 999 ML IV CONT (18:33)
[2025-04-25 18:41] LABS: Magnesium 1.8 mg/dL (1.6-2.3)
[2025-04-25 18:51] LABS: Troponin I < 0.012 ng/mL (0.000-0.034)
[2025-04-25 19:27] VITALS: BP 103/66; PULSE 98; RESP 16; O2SAT 96
--- NOTE | 2025-04-25 19:30 | ED_ITS ---
HPI - General Adult General Chief complaint: Syncope <ALEA Zaragoza Last Filed: 04/25/25 22:26> Stated complaint: syncope <ALEA Zaragoza Last Filed: 04/25/25 22:26> Time Seen by Provider: 04/25/25 18:15 <ALEA Zaragoza Last Filed: 04/25/25 22:26> Source: patient, family and EMS <ALEA Zaragoza Last Filed: 04/25/25 22:26> Mode of arrival: EMS <ALEA Zaragoza Last Filed: 04/25/25 22:26> Limitations: altered mental status <ALEA Zaragoza Last Filed: 04/25/25 22:26> History of Present Illness HPI narrative: Patient is a 69-year-old male who presents the ED via EMS with report of altered mental status. Patient was recently admitted here from 04/22 for acute CVA as seen by a MRI results. He was discharged from the hospital today. reports that patient was settled into his bed today and she stepped out of the room for approximately 10 minutes to make a few phone calls. When she returned to the room, she states patient was rigid, diaphoretic, unconscious/unresponsive. She states this lasted for approximately 3 minutes, but patient was confused for several minutes afterwards. Patient does not remember this episode. He does remember sitting in bed and getting onto his computer. does report that he also smoked a joint before the episode. Patient currently denies any complaints, denies dizziness/lightheadedness, CP, SOB, GALLEGOS, vision changes, focal numbness or weakness. EMS did note that patient's blood pressure was very low upon arrival. They did administer fluids in route. <ALEA Zaragoza Last Filed: 04/25/25 22:26> Related Data Allergies/adverse reactions: Allergies Allergy/AdvReac Type Severity Reaction Status Date / Time Penicillins Allergy Unknown Anaphylaxis Verified 04/22/25 15:45 <ALEA Zaragoza Last Filed: 04/25/25 22:26> Review of Systems 2 Review of Systems: All systems reviewed & are unremarkable except as noted in HPI. <Jaycee Chery PA-C - Last Filed: 04/25/25 22:26> All systems reviewed & are unremarkable except as noted in HPI and below < Jaycee Chery PA-C - Last Filed: 04/25/25 22:26> [facility] Past Medical History Medical History: Medical History Hyperlipidemia Acute cerebrovascular accident Sprain of right elbow Metabolic syndrome Encounter for screening for cardiovascular disorders Acute midline low back pain with left-sided sciatica Hyperglycemia Hypertension <Jaycee Chery PA-C - Last Filed: 04/25/25 22:26> Surgical History Surgical History: Surgical History History of bilateral knee replacement History of orthopedic surgery Right upper extremity reconstruction <Jaycee Chery PA-C - Last Filed: 04/25/25 22:26> Family History Family History: Family History Mother Family history of diabetes mellitus in first degree relative Sibling Carcinoma of colon Uterine cancer <Jaycee Chery PA-C - Last Filed: 04/25/25 22:26> Social History Social History: Social History Smoking packs per day: 0.5 Smoking cigarettes per day: 10.0 Years smoked: 15 Smoking pack-years: 7.50 Smoking status: Former smoker Tobacco type: cigarettes Second hand tobacco smoke exposure: Yes Smoking end date: 09/15/04 Alcohol intake: current Drinks per week: 1 Substance use: current Substance use type: marijuana Other substance usage details: 3x weekly Last use: today Do You Feel Safe in your Home?: Yes Lack of Transportation: No Lack of Food: Never True Current Housing: I Have Housing Concerned About Future Housing: No Difficulty Paying Gas/Electric Bills: No Difficulty Paying for Meds: No Currently Unemployed: No Education: High School Diploma/GED Difficulty w/ Childcare or Family Care: No Living arrangements: with family Spiritual care concerns: No <Jaycee Chery PA-C - Last Filed: 04/25/25 22:26> Exam 2 Narrative: GENERAL: Elderly, frail, non-toxic, in no acute distress. HEAD: Normocephalic, atraumatic. RESPIRATORY: Airway patent, respirations nonlabored. Clear to auscultation bilaterally, no rales, rhonchi, wheezing. CARDIOVASCULAR: Regular rate and rhythm without murmurs, rubs, or gallops. MUSCULOSKELETAL: Moves all extremities. No gross deformities. SKIN: Warm, dry, normal color. NEURO: A&O X2, unsure of month/location. Speech clear. Cranial nerves II-XII grossly intact. Steady gait. No ataxic movements. No appreciable focal deficits. Strength 5/5 in upper/lower extremities theresa. No pronator drift. 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 PSYCHIATRIC: Appropriate mood and affect. Normal interaction. <Jaycee Chery PA-C - Last Filed: 04/25/25 22:26> Course GUEST SERVICES DIRECTOR/PA Physician Supervision For this patient encounter, I reviewed the GUEST SERVICES DIRECTOR or PA documentation, treatment plan, and medical decision making; and I had [id number] time with this patient. <Tonny Hampton MD - Last Filed: 04/26/25 17:40> Vital Signs Vital signs: Vital Signs Pulse Rate 118 H 04/25/25 17:26 Respiratory Rate 17 04/25/25 17:26 Blood Pressure 112/72 04/25/25 17:26 Pulse Oximetry 96 04/25/25 17:26 Oxygen Delivery Room Air 04/25/25 17:26 Temperature 98.1 F 04/26/25 16:00 Pulse Rate 66 04/26/25 16:00 Respiratory Rate 20 04/26/25 16:00 Blood Pressure 110/75 04/26/25 16:00 Pulse Oximetry 100 04/26/25 16:00 Oxygen Delivery Room Air 04/26/25 04:00 <Jaycee Chery PA-C - Last Filed: 04/25/25 22:26> Vital Signs Pulse Rate 118 H 04/25/25 17:26 Respiratory Rate 17 04/25/25 17:26 Blood Pressure 112/72 04/25/25 17:26 Pulse Oximetry 96 04/25/25 17:26 Oxygen Delivery Room Air 04/25/25 17:26 Temperature 98.1 F 04/26/25 16:00 Pulse Rate 66 04/26/25 16:00 Respiratory Rate 20 04/26/25 16:00 Blood Pressure 110/75 04/26/25 16:00 Pulse Oximetry 100 04/26/25 16:00 Oxygen Delivery Room Air 04/26/25 04:00 <Tonny Hampton MD - Last Filed: 04/26/25 17:40> Medical Decision Making MDM Narrative Medical decision making narrative: Patient presented to ED with syncopal vs sz episode, episode of unresponsiveness. Was discharged from hospital today after acute CVA. Was noted to be hypotensive by EMS. Fluids were given in route. Patient was hypotensive down to the 80s here. Additional fluids were given. Initially somewhat tachycardic, this was resolved by the time of my evaluation. Patient does appear neurologically intact upon my evaluation. He is only alert oriented x2, but I do not appreciate any other focal deficits on exam. CT brain was obtained and without acute findings or intracranial bleeding. EKG showing atrial fibrillation here. EMS reported similar findings on their EKG is well. Patient does not have previous history of atrial fibrillation. CHADSVasc score at least 4. Will need to be started on anticoagulation. Patient was just started on aspirin and Plavix after CVA. Laboratory studies with white count of 12.5. CMP is fairly unremarkable. Slightly elevated creatinine compared to baseline. Patient given fluids. Lactic acid 2.0. Blood glucose 215. Troponin undetectable. Magnesium 1.8. Given IV replacement. Concern for seizure like activity s/p recent CVA. Given 1g Keppra in the ED. Discussed case with Dr. Dubose, neurology, will consult. Recommended to start patient on Keppra, give 1500 IV loading dose now, 750 PO b.i.d.. (Additional 500ml IV bolus ordered). Recommended to continue aspirin 81 mg, statin, hold Plavix to start on Eliquis. Will start eliquis in the am as patient received plavix dose today. EEG in am, will consult. CTA brain/carotids obtained, no LVO, dissection, aneursym. Does show soft plaque in R carotid bulb region. Discussed case with Piotr GUEST SERVICES DIRECTOR hospitalist, accepted patient for admission to IMU. < Jaycee Chery PA-C - Last Filed: 04/25/25 22:26> Medical Records Medical records reviewed: Yes I reviewed the external patient's medical records. <Jaycee Chery PA-C - Last Filed: 04/25/25 22:26> Vital Signs Vital Signs: Vital Signs Pulse Rate 118 H 04/25/25 17:26 Respiratory Rate 17 04/25/25 17:26 Blood Pressure 112/72 04/25/25 17:26 Pulse Oximetry 96 04/25/25 17:26 Oxygen Delivery Room Air 04/25/25 17:26 Temperature 98.1 F 04/26/25 16:00 Pulse Rate 66 04/26/25 16:00 Respiratory Rate 20 04/26/25 16:00 Blood Pressure 110/75 04/26/25 16:00 Pulse Oximetry 100 04/26/25 16:00 Oxygen Delivery Room Air 04/26/25 04:00 <Jaycee Chery PA-C - Last Filed: 04/25/25 22:26> Vital Signs Pulse Rate 118 H 04/25/25 17:26 Respiratory Rate 17 04/25/25 17:26 Blood Pressure 112/72 04/25/25 17:26 Pulse Oximetry 96 04/25/25 17:26 Oxygen Delivery Room Air 04/25/25 17:26 Temperature 98.1 F 04/26/25 16:00 Pulse Rate 66 04/26/25 16:00 Respiratory Rate 20 04/26/25 16:00 Blood Pressure 110/75 04/26/25 16:00 Pulse Oximetry 100 04/26/25 16:00 Oxygen Delivery Room Air 04/26/25 04:00 <Tonny Hampton MD - Last Filed: 04/26/25 17:40> Lab Data Lab results reviewed: Yes I reviewed the patient's lab results. <Jaycee Chery PA-C - Last Filed: 04/25/25 22:26> Result diagrams: 04/26/25 03:40 04/26/25 03:40 <ALEA Zaragoza Last Filed: 04/25/25 22:26> Labs: Lab Results 04/25/25 04/25/2525 Range/Units 17:51 20:23 03:40 WBC 12.9 H 11.2 H (4.5-10.0) K/mm3 RBC 4.79 4.83 (4.6-6.20) M/mm3 Hgb 15.3 15.1 (14.0-18.0) g/dL Hct 42.7 44.8 (42.0-52.0) % MCV 89.1 92.8 (80-100) fl MCH 31.9 31.3 (26-34) pg MCHC 35.8 33.7 (32-36) g/dl RDW 13.0 13.3 (11.5-14.5) % Plt Count 322 293 (150-375) k/mm3 MPV 9.3 9.4 (7.4-10.4) fl Immature Gran % (Auto) 0.5 0.3 (0-0.5) % Neut % (Auto) 76.5 H 71.3 (45.5-73.1) % Lymph % (Auto) 13.8 L 17.9 L (18.3-44.2) % [place] % (Auto) 6.8 9.0 H (2.6-8.5) % Eos % (Auto) 1.8 1.0 (0-4.4) % Baso % (Auto) 0.6 0.5 (0.2-1.2) % Lymph # (Auto) 1.77 2.00 (0.9-3.2) K/mm3 [place] # (Auto) 0.9 H 1.0 H (0.1-0.6) K/mm3 Eos # (Auto) 0.2 0.1 (0-0.3) K/mm3 Baso # (Auto) 0.1 0.1 (0.0-0.1) K/mm3 Abs Immat Gran (auto) 0.06 H 0.03 (0.00-0.031) K/mm3 Absolute Neuts (auto) 9.8 H 8.0 H (1.3-6.7) K/mm3 Absolute Nucleated RBC 0.000 0.000 (0.0-0.012) K/mm3 Nucleated RBC % 0.0 0.0 (0.0-0.2) % Sodium 135 L 138 (137-145) mmol/L Potassium 3.5 3.9 (3.4-5.0) mmol/L Chloride 101 106 (98-107) mmol/L Carbon Dioxide 25 24 (22-30) mmol/L Anion Gap 9 8 (4-12) mmol/L BUN 15 14 (9-20) mg/dL Creatinine 1.24 0.94 (0.7-1.3) mg/dL Estim Creat Clear Calc 46 60 ml/min Estimated GFR 58 L > 60 (59 - ) Glucose 215 H 120 H (65-110) mg/dL Lactic Acid 2.0 (0.7-2.0) mmol/L Calcium 8.7 8.8 (8.4-10.2) mg/dL Magnesium 1.8 2.5 H (1.6-2.3) mg/dL Total Bilirubin 0.8 1.1 (0.2-1.3) mg/dL AST 22 28 (17-59) U/L ALT 13 15 (6-50) U/L Alkaline Phosphatase 79 81 (38-126) U/L Troponin I < 0.012 (0.000-0.034) ng/mL Total Protein 6.5 6.7 (6.3-8.2) g/dL Albumin 3.9 4.0 (3.5-5.1) g/dL Urine Color Yellow (Yellow) Urine Appearance Clear (Clear) Urine pH 6.0 (5.0-9.0) Ur Specific [place] 1.011 (1.001-1.035) Urine Protein Trace (Negative) mg/dL Urine Glucose (UA) Negative (Negative) mg/dL Urine Ketones Negative (Negative) mg/dL Ur Blood (Man) Negative (Negative) Urine Nitrate Negative (Negative) Urine Bilirubin Negative (Negative) Urine Urobilinogen 0.2 (<2.0) mg/dL Leukocyte Esterase Rfl Trace H (Negative) REGLA/UL Urine RBC 0-2 (0-2) /hpf Urine WBC 0-5 (0-3) /hpf Ur Squamous Epith Cells None seen (Few) /hpf Urine Bacteria None seen /hpf Urine Casts 6-10 Hyaline Casts Present (None) /lpf <Jaycee Chery PA-C - Last Filed: 04/25/25 22:26> Lab Results 04/25/25 04/25/25 04/26/25 Range/Units 17:51 20:23 03:40 WBC 12.9 H 11.2 H (4.5-10.0) K/mm3 RBC 4.79 4.83 (4.6-6.20) M/mm3 Hgb 15.3 15.1 (14.0-18.0) g/dL Hct 42.7 44.8 (42.0-52.0) % MCV 89.1 92.8 (80-100) fl MCH 31.9 31.3 (26-34) pg MCHC 35.8 33.7 (32-36) g/dl RDW 13.0 13.3 (11.5-14.5) % Plt Count 322 293 (150-375) k/mm3 MPV 9.3 9.4 (7.4-10.4) fl Immature Gran % (Auto) 0.5 0.3 (0-0.5) % Neut % (Auto) 76.5 H 71.3 (45.5-73.1) % Lymph % (Auto) 13.8 L 17.9 L (18.3-44.2) % [place] % (Auto) 6.8 9.0 H (2.6-8.5) % Eos % (Auto) 1.8 1.0 (0-4.4) % Baso % (Auto) 0.6 0.5 (0.2-1.2) % Lymph # (Auto) 1.77 2.00 (0.9-3.2) K/mm3 [place] # (Auto) 0.9 H 1.0 H (0.1-0.6) K/mm3 Eos # (Auto) 0.2 0.1 (0-0.3) K/mm3 Baso # (Auto) 0.1 0.1 (0.0-0.1) K/mm3 Abs Immat Gran (auto) 0.06 H 0.03 (0.00-0.031) K/mm3 Absolute Neuts (auto) 9.8 H 8.0 H (1.3-6.7) K/mm3 Absolute Nucleated RBC 0.000 0.000 (0.0-0.012) K/mm3 Nucleated RBC % 0.0 0.0 (0.0-0.2) % Sodium 135 L 138 (137-145) mmol/L Potassium 3.5 3.9 (3.4-5.0) mmol/L Chloride 101 106 (98-107) mmol/L Carbon Dioxide 25 24 (22-30) mmol/L Anion Gap 9 8 (4-12) mmol/L BUN 15 14 (9-20) mg/dL Creatinine 1.24 0.94 (0.7-1.3) mg/dL Estim Creat Clear Calc 46 60 ml/min Estimated GFR 58 L > 60 (59 - ) Glucose 215 H 120 H (65-110) mg/dL Lactic Acid 2.0 (0.7-2.0) mmol/L Calcium 8.7 8.8 (8.4-10.2) mg/dL Magnesium 1.8 2.5 H (1.6-2.3) mg/dL Total Bilirubin 0.8 1.1 (0.2-1.3) mg/dL AST 22 28 (17-59) U/L ALT 13 15 (6-50) U/L Alkaline Phosphatase 79 81 (38-126) U/L Troponin I < 0.012 (0.000-0.034) ng/mL Total Protein 6.5 6.7 (6.3-8.2) g/dL Albumin 3.9 4.0 (3.5-5.1) g/dL Urine Color Yellow (Yellow) Urine Appearance Clear (Clear) Urine pH 6.0 (5.0-9.0) Ur Specific [place] 1.011 (1.001-1.035) Urine Protein Trace (Negative) mg/dL Urine Glucose (UA) Negative (Negative) mg/dL Urine Ketones Negative (Negative) mg/dL Ur Blood (Man) Negative (Negative) Urine Nitrate Negative (Negative) Urine Bilirubin Negative (Negative) Urine Urobilinogen 0.2 (<2.0) mg/dL Leukocyte Esterase Rfl Trace H (Negative) REGLA/UL Urine RBC 0-2 (0-2) /hpf Urine WBC 0-5 (0-3) /hpf Ur Squamous Epith Cells None seen (Few) /hpf Urine Bacteria None seen /hpf Urine Casts 6-10 Hyaline Casts Present (None) /lpf <Tonny Hampton MD - Last Filed: 04/26/25 17:40> Imaging Data Attestation: I personally reviewed and interpreted this imaging study as follows: < Jaycee Chery PA-C - Last Filed: 04/25/25 22:26> Radiologist's impression: ITS Impressions Chest X-Ray 04/25/25 18:35 IMPRESSION: No focal infiltrate or effusion. Head CT 04/25/25 19:00 Impression: No acute intracranial hemorrhage or suspicious mass effect. Head/Neck CTA 04/25/25 21:05 IMPRESSION: 1. Percent stenosis per NASCET criteria is 0% on the right and 19% on the left. 2. Soft plaque is identified within the right carotid bulb just beyond its origin, not visualized on the previous study. <Jaycee Chery PA-C - Last Filed: 04/25/25 22:26> ECG Data EKG #1: Attestation: I personally reviewed and interpreted this ECG as follows: <Jaycee Chery PA-C - Last Filed: 04/25/25 22:26> ECG completion date: 04/25/25 <Jaycee Chery PA-C - Last Filed: 04/25/25 22:26> ECG completion time: 17:43 <Jaycee Chery PA-C - Last Filed: 04/25/25 22:26> EKG Interpretation: tachycardia (120), atrial fibrillation, non-specific ST changes and other (baseline artifact) <Jaycee Chery PA-C - Last Filed: 04/25/25 22:26> Discharge Plan Discharge Clinical Impression: Unresponsive episode, History of CVA (cerebrovascular accident), New onset a-fib <Jaycee Chery PA-C - Last Filed: 04/25/25 22:26> Patient Disposition: Still a Patient <Jaycee Chery PA-C - Last Filed: 04/25/25 22:26> Condition: Stable <Jaycee Chery PA-C - Last Filed: 04/25/25 22:26>
[2025-04-25] MEDS: levETIRAcetam 1000MG/NACL100ML 1,000 MG/100 ML BAG 400 MG IVPB (19:33)
--- NOTE | 2025-04-25 19:47 | ECG_ITS ---
Test Date: 2025-04-25 19:56:17 Measurements Intervals [place] Rate: 108 P: 0 CO: 0 QRS: -20 QRSD: 96 T: 4 QT: 358 QTc: 480 Interpretive Statements ATRIAL FIBRILLATION WITH RAPID VENTRICULAR RESPONSE INFERIOR INFARCT, AGE INDETERMINATE BASELINE ARTIFACT- I, II, III, AVR, AVL, AVF ABNORMAL ECG Compared to ECG 04/25/2025 17:43:34 HEART RATE HAS DECREASED Electronically Signed On 04-26-2025 06:16:11 CDT by Kirill Portillo D.O.
[2025-04-25] MEDS: MAGNESIUM SULF 2 GM/WATER 50ML 2 GM/50 ML BAG IVPB (19:58)
[2025-04-25 20:47] LABS: Add Urine Microscopic? YES; Appearance Urine Clear (Clear); Glucose Urine UA Negative (Negative); Leukocyte Esterase Ur Trace LEU/UL (Negative); Nitrate Urine Negative (Negative); Specific Grav Ur 1.011 (1.001-1.035)
[2025-04-25 21:59] VITALS: PULSE 101; RESP 12; O2SAT 99
[2025-04-25] MEDS: levETIRAcetam 500MG/NACL 100ML 500 MG/100 ML BAG 400 MG IVPB (22:09)
--- NOTE | 2025-04-25 22:16 | PM.IMHP ---
H&P: HPI History of Present Illness Date/Time: 04/25/25 22:16 Chief Complaint: Altered Mental Status and new onset atrial fibrillation Narrative: This is a 69-year-old male patient who is admitted to the hospital for altered mental status with possible seizure activity. He was admitted on 04/22 with acute CVA and was discharged home on 04/25. He was only home for a very short time where it was reported he smoked marijuana and then when his went to get his computer to bring it to him he went unresponsive. He was had rigid body for several minutes and found to be hypotensive upon EMS arrival. He was also very confused upon regaining consciousness. Given the rigidity, altered mental status and what sounds like postictal time frame it is suspected that patient had seizure activity. Neurology was consulted and gave instructions to order IV Keppra 1500 mg x 1 then 750 mg twice a day by oral route if possible as well as obtain EEG. Neurology will see patient at again tomorrow. Labs showed a white blood cell count of 12.9, glucose 215, potassium 3.5 and magnesium 1.8. Troponin was negative. Urinalysis with trace leukocyte esterase but no other findings to support infection. Chest x-ray unremarkable. CT scan noncontrast shows areas of chronic infarct there are scattered. CTA head neck shows new finding of soft plaque the right carotid artery but no large vessel occlusion. Patient afebrile. On my attempt to examine patient he would respond to verbal stimuli but was confused. Patient did not even get his own name correct called himself Prosper. He had no recollection of where he was or why he was in the hospital. Patient's had already gone home. HPI/ROS are thus significantly limited. Review of Systems Review of Systems: ROS unobtainable: Yes unobtainable due to mental status PMFSH Past Medical History Medical History Hyperlipidemia Acute cerebrovascular accident Sprain of right elbow Metabolic syndrome Encounter for screening for cardiovascular disorders Acute midline low back pain with left-sided sciatica Hyperglycemia Hypertension Surgical History Surgical History History of bilateral knee replacement History of orthopedic surgery Right upper extremity reconstruction Family History Family History Mother Family history of diabetes mellitus in first degree relative Sibling Carcinoma of colon Uterine cancer Social History Social History Smoking packs per day: 0.5 Smoking cigarettes per day: 10.0 Years smoked: 15 Smoking pack-years: 7.50 Smoking status: Former smoker Tobacco type: cigarettes Second hand tobacco smoke exposure: Yes Smoking end date: 09/15/04 Alcohol intake: current Drinks per week: 1 Substance use: current Substance use type: marijuana Other substance usage details: 3x weekly Last use: today Do You Feel Safe in your Home?: Yes Lack of Transportation: No Lack of Food: Never True Current Housing: I Have Housing Concerned About Future Housing: No Difficulty Paying Gas/Electric Bills: No Difficulty Paying for Meds: No Currently Unemployed: No Education: High School Diploma/GED Difficulty w/ Childcare or Family Care: No Living arrangements: with family Spiritual care concerns: No Meds Home Medications and Allergies Home Medications ?Medication ?Instructions ?Recorded ?Confirmed ?Type lisinopril 20 See Rx Instructions .Route 11/22/24 04/26/25 Rx mg-hydrochlorothiazide 12.5 mg .COMPLEX #180 tabs tablet metoprolol succinate 50 mg 50 mg PO DAILY #90 tabs 11/22/24 04/26/25 Rx tablet,extended release 24 hr acetaminophen 500 mg tablet 1,000 mg (2 x 500 mg) PO Q6H PRN 12/28/24 04/26/25 Rx (Tylenol Extra Strength) pain #50 tabs aspirin 81 mg tablet,delayed 81 mg PO QAM 30 days #30 tabs 04/25/25 04/26/25 Rx release atorvastatin 40 mg tablet 40 mg PO DAILY 30 days #30 tabs 04/25/25 04/26/25 Rx clopidogrel 75 mg tablet 75 mg PO QAM 30 days #30 tabs 04/25/25 04/26/25 Rx Allergies Allergy/AdvReac Type Severity Reaction Status Date / Time Penicillins Allergy Unknown Anaphylaxis Verified 04/22/25 15:45 Vital Signs Vital Signs - 24 hr 04/25/25 17:26 04/25/25 19:27 04/25/25 21:59 Pulse Rate 118 H 98 101 H Respiratory Rate 17 16 12 Blood Pressure 112/72 103/66 Pulse Oximetry 96 96 99 Oxygen Delivery Room Air Exam Narrative: GENERAL: Elderly male patient appears older than stated age, responds to verbal stimuli HEAD: Normocephalic, atraumatic. ENT:? Mucous membranes moist. CHEST: Clear to auscultation.? No respiratory distress. HEART: Regular rate and rhythm. ? Normal peripheral pulses. ABDOMEN: Soft, nontender, nondistended. EXTREMITIES: Normal range of motion. No peripheral edema. SKIN: Warm dry normal color NEURO: Response to verbal stimuli, thrashing around the bed, not following commands, confused to name, place, time and event PSYCH: Unable to evaluate H&P: Results Labs Labs: Short CBC 04/25/25 Range/Units 17:51 WBC 12.9 H (4.5-10.0) K/mm3 Hgb 15.3 (14.0-18.0) g/dL Hct 42.7 (42.0-52.0) % Plt Count 322 (150-375) k/mm3 BMP 04/25/25 17:51 Sodium 135 L Potassium 3.5 Chloride 101 Carbon Dioxide 25 BUN 15 Creatinine 1.24 Glucose 215 H Calcium 8.7 Cardiac Enzymes 04/25/25 Range/Units 17:51 Troponin I < 0.012 (0.000-0.034) ng/mL Liver Function 04/25/25 Range/Units 17:51 Total Bilirubin 0.8 (0.2-1.3) mg/dL AST 22 (17-59) U/L ALT 13 (6-50) U/L Alkaline Phosphatase 79 (38-126) U/L Albumin 3.9 (3.5-5.1) g/dL Urine 04/25/25 Range/Units 20:23 Urine Color Yellow (Yellow) Urine Appearance Clear (Clear) Urine pH 6.0 (5.0-9.0) Ur Specific [place] 1.011 (1.001-1.035) Urine Protein Trace (Negative) mg/dL Urine Glucose (UA) Negative (Negative) mg/dL Pulse Oximetry SpO2 results: 95% on room air Attestation: I personally reviewed and interpreted this pulse oximetry as follows: Interpretation: No need for supplemental oxygenation at this time ECG Attestation: I personally reviewed and interpreted this ECG as follows: ECG completion date: 04/25/25 ECG completion time: 19:56 Prior ECG tracings: available for review Interpretation: Atrial fibrillation with RVR rate 108 QRS duration 96 QTC is 480 QRS axis -20? no STEMI Imaging Chest x-ray: Radiologist's impression: CHEST RADIOGRAPH, PA AND LATERAL CLINICAL HISTORY: syncope . COMPARISON: 04/22/2025 TECHNIQUE: PA and lateral views of the chest. FINDINGS The cardiomediastinal silhouette is unremarkable. The lungs are clear. IMPRESSION: No focal infiltrate or effusion. Reviewed, dictated and finalized at location A. CT scan - head: Radiologist's impression: CTA brain carotid Ordering provider: Jaycee Chery PA-C History: . sz episode, recent cva, new onset afib . 69-year-old gentleman with absence seizure activity post recent CVA presents with new onset A. fib for further evaluation. Comparison: 04/22/2025 Technique: CT angiogram head and neck was performed following timed intravenous injection of contrast. Thin slice axial images and reformatted coronal images were obtained. Three dimensional reformatted images of the brain were also obtained using a [employer] workstation. DLP: 1095.7 mGy-cm FINDINGS: HEAD: --ANTERIOR AND MIDDLE CEREBRAL ARTERIES AND BRANCHES: Normal caliber and contour. --INTERNAL CAROTID ARTERIES: Moderate atheromatous disease bilaterally resulting in mild stenosis but no occlusion. --BASILAR ARTERY AND BRANCHES: Mild atheromatous disease but no stenosis or occlusion. --POSTERIOR CEREBRAL ARTERIES: Normal caliber and contour --POSTERIOR COMMUNICATING ARTERIES: Not well visualized likely related to congenital absence or small size. --ANEURYSM: None visualized. --BRAIN: Please refer to report of CT head performed the same day. --BONES AND SUPERFICIAL SOFT TISSUES: Please refer to report of CT head performed the same day. --PARANASAL SINUSES AND MASTOIDS: Please refer to report of CT head done the same day. NECK: --RIGHT CERVICAL CAROTID SYSTEM: Mild atheromatous disease of the carotid bulb and proximal internal carotid artery without significant stenosis. Percent stenosis per NASCET criteria is 0% No carotid dissection. Soft plaque is identified within the right carotid bulb, just beyond its origin, not visualized on the previous study. --LEFT CERVICAL CAROTID SYSTEM: Mild atheromatous disease of the carotid bulb and proximal internal carotid artery without significant stenosis. Percent stenosis per NASCET criteria is 19% No carotid dissection. Significant tortuosity is identified within the left internal carotid artery, following its origin. --VERTEBRAL ARTERIES: Normal caliber and contour. The left vertebral artery is dominant. --VISUALIZED AORTIC ARCH AND BRANCHING VESSELS: Mild atheromatous disease but no significant stenosis. --SOFT TISSUES: Unremarkable --CERVICAL SPINE: Age appropriate degenerative changes. IMPRESSION: 1. Percent stenosis per NASCET criteria is 0% on the right and 19% on the left. 2. Soft plaque is identified within the right carotid bulb just beyond its origin, not visualized on the previous study. Reviewed, dictated and finalized at location A. History: Syncope PROCEDURE: CT head without contrast. COMPARISON: 04/22/2025. Reference is also made to an MRI examination of the brain, performed the same day demonstrating findings consistent with amyloid angiopathy TECHNIQUE: Axial imaging of the head performed from the skull base to the vertex without IV contrast. Sagittal and coronal reformations obtained. DLP: 757 mGy-cm FINDINGS: The ventricles are enlarged. The dilatation of the ventricles is proportional to the degree of sulcal prominence, not uncommon in the senescent brain. Decreased attenuation is identified within the periventricular white matter, likely secondary to microvascular ischemic disease, in a patient of this age. Additional areas of decreased attenuation are identified bilaterally, right greater than left consistent with prior cerebral infarction. There is no mass, mass effect or midline shift. There is no abnormal extra-axial fluid collection or intracranial hemorrhage. Visualized paranasal sinuses are clear. The mastoid air cells are well aerated. No acute displaced fractures within the overlying cranium. Impression: No acute intracranial hemorrhage or suspicious mass effect. Reviewed, dictated and finalized at location A. Assessment and Plan Assessment and plan (1) AMS (altered mental status): Code(s): R41.82 - Altered mental status, unspecified Status: Acute Assessment and Plan: -Patient admitted on 04/22 with acute CVA, discharged on 04/25 -Patient home for a short while when he smoked marijuana then shortly thereafter had episode of unresponsiveness - says patient was rigid for a while then very confused upon regaining consciousness, concern for seizure activity -Neurology consulted, Keppra given 1500 mg loading dose then 750 mg BID ordered -EEG ordered and Neurology will see patient -Admit to IMU (2) Acute cerebrovascular accident: Code(s): I63.9 - Cerebral infarction, unspecified Status: Acute Assessment and Plan: -Recent admission with diagnosis of acute CVA with multiple areas of chronic infarct noted on CT scans. -Discovery of atrial fibrillation on EKG helps explain acute and chronic infarcts -New episode of altered mental status after discharge home brings patient back to hospital same day as previous discharge (3) New onset a-fib: Code(s): I48.91 - Unspecified atrial fibrillation Status: Acute Assessment and Plan: -Afib RVR on initial EKG -Neurology instructed to continue aspirin, discontinue Plavix and instead start Eliquis -Repeat CTA Head/Neck to ensure that new worsening mental status not due to large vessel occlusion from an A-fib clot shower -Continue metoprolol for rate control (4) Hypertension: Qualifiers: Hypertension type: essential hypertension Qualified Code(s): I10 - Essential (primary) hypertension Code(s): I10 - Essential (primary) hypertension Status: Acute Assessment and Plan: -Noted history, blood pressure stable on admission -Hold lisinopril-hctz, continue metoprolol for HR control (5) Agitation: Code(s): R45.1 - Restlessness and agitation Status: Acute Assessment and Plan: -On arrival to the floor he was confused, agitated, pulling at medical equipment and not redirectable -Soft limb restraints ordered by another provider along with IV Ativan -Repeat episode around 0300, another dose of Ativan ordered Quality VTE Prophylaxis VTE prophylaxis: pharmacologic ordered Due to a high probability of clinically significant, life threatening deterioration, the patient required my highest level of preparedness to intervene emergently and I personally spent this critical care time directly and personally managing the patient. This critical care time included obtaining a history; examining the patient; pulse oximetry; ordering and review of studies; arranging urgent treatment with development of a management plan; evaluation of patient's response to treatment; frequent reassessment; and discussions with other providers. It was exclusive of separately billable procedures and treating other patients and teaching time. Please see Assessment and Plan section and the rest of the note for further information on patient assessment and treatment. Critical Care time: 40 minutes Hospitalist MIPS Advance Care Plan I have confirmed that the patient's Advanced Care Plan is present, code status is documented, or surrogate decision maker is listed in patient medical record.: Yes Medication Reconciliation I have utilized all available resources to obtain, update and review the patients current medications (includes all prescriptions, OTC, herbals, cannabis, and nutritional supplements).: Yes
[2025-04-25 22:45] VITALS: BP 94/59; PULSE 94; RESP 18; TEMP 36.9; O2SAT 95
--- NOTE | 2025-04-25 23:09 | ADMGEN ---
This patient, Giancarlo Clark Jr., was admitted to IMU Room 201-01. Patient/family oriented to hospital policies and general routines including ID bracelet, bed and alarms, visiting hours, pain management, procedures, bathroom and other care routines, personal items, smoking policy, room service/diet, and visiting hours. Information on how to activate the Rapid Response Team has been discussed. Patient/Family are encouraged to report perceived risks to care and to ask questions if they do not understand what they are told or what they should do.
[2025-04-25] MEDS: LORazepam INJ (*CRX) 2 MG/ML VIAL IV PUSH (23:11)
[2025-04-26] VITALS (16 sets, daily range): BP systolic 94–152; BP diastolic 59–87; PULSE 55–130; RESP 16–20; TEMP 36.1–37.3; O2SAT 90–100
[2025-04-26] MEDS: POTASSIUM CHLORIDE INJ 40 MEQ in SODIUM CHLORIDE 0.9% IV 500 ML 130 MEQ IVPB (00:26)
[2025-04-26] MEDS: LORazepam INJ (*CRX) 2 MG/ML VIAL IV PUSH (03:34)
[2025-04-26 03:59] LABS: Hematocrit 44.8 % (42.0-52.0); Hemoglobin 15.1 g/dL (14.0-18.0); Immature Granulocyte Percent A 0.3 % (0-0.5); Lymphocytes Absolute Auto 2.00 K/mm3 (0.9-3.2); Mean Corpuscular HGB Conc 33.7 g/dl (32-36); Mean Corpuscular Hemoglobin 31.3 pg (26-34); Mean Corpuscular Volume 92.8 fl (80-100); Nucleated Red Blood Cells Absolute Auto 0.000 K/mm3 (0.0-0.012); Nucleated Red Blood Cells Perc 0.0 % (0.0-0.2); Platelet Count Result 293 k/mm3 (150-375); Red Blood Count 4.83 M/mm3 (4.6-6.20); White Blood Count 11.2 K/mm3 (4.5-10.0)
[2025-04-26 04:22] LABS: Alanine Aminotransferase 15 U/L (6-50); Albumin Level 4.0 g/dL (3.5-5.1); Alkaline Phosphatase 81 U/L (38-126); Anion Gap 8 mmol/L (4-12); Aspartate Amino Transferase 28 U/L (17-59); Bilirubin,Total 1.1 mg/dL (0.2-1.3); Blood Urea Nitrogen 14 mg/dL (9-20); Calcium 8.8 mg/dL (8.4-10.2); Carbon Dioxide 24 mmol/L (22-30); Chloride 106 mmol/L (98-107); Estimated CRCL calculation 60 ml/min; Estimated Glomerular Filt Rate > 60; Glucose 120 mg/dL (65-110); Magnesium 2.5 mg/dL (1.6-2.3); Potassium 3.9 mmol/L (3.4-5.0); Sodium 138 mmol/L (137-145); Total Protein 6.7 g/dL (6.3-8.2)
--- NOTE | 2025-04-26 08:58 | P.PNIM_ITS ---
Progress Note: A&P Assessment and Plan (1) AMS (altered mental status): Code(s): R41.82 - Altered mental status, unspecified Status: Acute Assessment and Plan: -Patient admitted on 04/22 with acute CVA, discharged on 04/25 -Patient home for a short while when he smoked marijuana then shortly thereafter had episode of unresponsiveness - says patient was rigid for a while then very confused upon regaining co nsciousness, concern for seizure activity -Neurology consulted, Keppra given 1500 mg loading dose then 750 mg BID ordered -EEG ordered and Neurology will see patient (2) Acute cerebrovascular accident: Code(s): I63.9 - Cerebral infarction, unspecified Status: Acute Assessment and Plan: -Recent admission with diagnosis of acute CVA with multiple areas of chronic infarct noted on CT scans. -Discovery of atrial fibrillation on EKG helps explain acute and chronic infarcts. - now on Eliquis -New episode of altered mental status after discharge home brings patient back to hospital same day as previous discharge (3) New onset a-fib: Code(s): I48.91 - Unspecified atrial fibrillation Status: Acute Assessment and Plan: -Afib RVR on initial EKG -Neurology instructed to continue aspirin, discontinue Plavix and instead start Eliquis -Repeat CTA Head/Neck no acute LVO -Continue metoprolol for rate control - continue Eliquis - cardiology consulted (4) Hypertension: Qualifiers: Hypertension type: essential hypertension Qualified Code(s): I10 - Essential (primary) hypertension Code(s): I10 - Essential (primary) hypertension Status: Acute Assessment and Plan: -Noted history, blood pressure stable on admission continue metoprolol for HR control - resume lisinopril-HCTZ (5) Agitation: Code(s): R45.1 - Restlessness and agitation Status: Acute Assessment and Plan: -On arrival to the floor he was confused, agitated, pulling at medical equipment and not redirectable -Soft limb restraints ordered by another provider along with IV Ativan -Repeat episode around 0300, another dose of Ativan ordered - patient calm this AM with sitter at bedside, restraints removed Subjective Date/time seen: 04/26/25 08:58 Interval history: This is a 69-year-old male patient who is admitted to the hospital for altered mental status with possible seizure activity. He was admitted on 04/22 with acute CVA and was discharged home on 04/25. Patient seen and examined at bedside with sitter at bedside. He is more alert and oriented to self and time this AM. Improved from admission. No further seizure-like activity. Review of Systems Review of Systems: All systems reviewed & are unremarkable except as noted in HPI and below Exam Narrative: General: NAD, disheveled Eyes: EOMI ENT: neck supple Cardiovascular: Regular rate and rhythm Respiratory: Clear to auscultation, respirations even and unlabored on RA Gastrointestinal: Soft, non tender Genitourinary: no suprapubic tenderness Musculoskeletal: No edema Skin: warm, dry Neuro: Alert and oriented to self, year. Otherwise confused. Cranial nerves II- XII intact. Face symmetric. Speech clear. Strength 5/5 in BUEs/BLEs. Psych: Mood appropriate Objective Data Vital Signs Vital Signs: Vital Signs - 24 hr 04/25/25 17:26 04/25/25 19:27 04/25/25 21:59 Temperature Pulse Rate 118 H 98 101 H Respiratory Rate 17 16 12 Blood Pressure 112/72 103/66 Pulse Oximetry 96 96 99 Oxygen Delivery Room Air 04/25/25 22:45 04/26/25 00:00 04/26/25 00:00 Temperature 98.4 F 99.1 F Pulse Rate 94 96 Respiratory Rate 18 18 Blood Pressure 94/59 L 94/59 L Pulse Oximetry 95 95 Oxygen Delivery Room Air 04/26/25 00:00 04/26/25 02:29 04/26/25 04:00 Temperature Pulse Rate 130 H 84 Respiratory Rate Blood Pressure Pulse Oximetry Oxygen Delivery Room Air 04/26/25 04:00 04/26/25 04:00 04/26/25 06:35 Temperature 98.8 F Pulse Rate 87 85 82 Respiratory Rate 16 Blood Pressure 127/87 Pulse Oximetry 90 Oxygen Delivery 04/26/25 07:56 Temperature 96.9 F L Pulse Rate 87 Respiratory Rate 20 Blood Pressure 117/77 Pulse Oximetry 100 Oxygen Delivery Intake/Output Intake/Output: Intake & Output 04/23/25 04/24/25 04/25/25 04/26/25 23:59 23:59 23:59 23:59 Intake Total 1250 0 Balance 1250 0 Meds/Results Medications: Active Medications Generic Name Dose Route Start Last Admin Trade Name Freq PRN Reason Stop Dose Admin Acetaminophen 1,000 mg 04/26/25 03:20 Acetaminophen 500 Mg Tablet PO Q6H PRN pain Apixaban 5 mg 04/26/25 09:00 Apixaban 5 Mg Tablet PO Q12HR [facility] Aspirin 81 mg 04/26/25 09:00 Aspirin 81 Mg Enteric Tablet PO QAM [facility] Atorvastatin Calcium 40 mg 04/26/25 09:00 Atorvastatin 40 Mg Tablet PO DAILY [facility] Dextrose 12.5 gm 04/25/25 22:09 Dextrose 50% 25 Gm/50 Ml Syringe IV PUSH PRN PRN Hypoglycemia Protocol Glucagon 1 mg 04/25/25 22:09 Glucagon For Inj 1 Mg Vial IM PRN PRN Hypoglycemia Protocol Glucose 15 gm 04/25/25 22:09 Glucose Oral Gel 15 Gm Of Glucse In 37.5 Gm Tube PO PRN PRN Hypoglycemia Protocol Dextrose 1,000 mls @ 100 mls/hr 04/25/25 22:09 Dextrose 5% 1,000 Ml IVPB PRN PRN Hypoglycemia Protocol Levetiracetam 250 mg/ 750 mg 04/26/25 09:00 Levetiracetam 500 mg PO Q12HR [facility] Metoprolol Succinate 50 mg 04/26/25 09:00 Metoprolol Succinate Ext Rel 50 Mg Tabcr PO DAILY [facility] Radiology Results: ITS Impressions Chest X-Ray 04/25/25 18:35 IMPRESSION: No focal infiltrate or effusion. Head CT 04/25/25 19:00 Impression: No acute intracranial hemorrhage or suspicious mass effect. Head/Neck CTA 04/25/25 21:05 IMPRESSION: 1. Percent stenosis per NASCET criteria is 0% on the right and 19% on the left. 2. Soft plaque is identified within the right carotid bulb just beyond its origin, not visualized on the previous study. Labs Labs: Laboratory Results - last 24 hr 04/25/25 04/25/25 04/26/25 17:51 20:23 03:40 WBC 12.9 H 11.2 H RBC 4.79 4.83 Hgb 15.3 15.1 Hct 42.7 44.8 MCV 89.1 92.8 MCH 31.9 31.3 MCHC 35.8 33.7 RDW 13.0 13.3 Plt Count 322 293 MPV 9.3 9.4 Immature Gran % (Auto) 0.5 0.3 Neut % (Auto) 76.5 H 71.3 Lymph % (Auto) 13.8 L 17.9 L [place] % (Auto) 6.8 9.0 H Eos % (Auto) 1.8 1.0 Baso % (Auto) 0.6 0.5 Lymph # (Auto) 1.77 2.00 [place] # (Auto) 0.9 H 1.0 H Eos # (Auto) 0.2 0.1 Baso # (Auto) 0.1 0.1 Abs Immat Gran (auto) 0.06 H 0.03 Absolute Neuts (auto) 9.8 H 8.0 H Absolute Nucleated RBC 0.000 0.000 Nucleated RBC % 0.0 0.0 Sodium 135 L 138 Potassium 3.5 3.9 Chloride 101 106 Carbon Dioxide 25 24 Anion Gap 9 8 BUN 15 14 Creatinine 1.24 0.94 Estim Creat Clear Calc 46 60 Estimated GFR 58 L > 60 Glucose 215 H 120 H Lactic Acid 2.0 Calcium 8.7 8.8 Magnesium 1.8 2.5 H Total Bilirubin 0.8 1.1 AST 22 28 ALT 13 15 Alkaline Phosphatase 79 81 Troponin I < 0.012 Total Protein 6.5 6.7 Albumin 3.9 4.0 Urine Color Yellow Urine Appearance Clear Urine pH 6.0 Ur Specific [place] 1.011 Urine Protein Trace Urine Glucose (UA) Negative Urine Ketones Negative Ur Blood (Man) Negative Urine Nitrate Negative Urine Bilirubin Negative Urine Urobilinogen 0.2 Leukocyte Esterase Rfl Trace H Urine RBC 0-2 Urine WBC 0-5 Ur Squamous Epith Cells None seen Urine Bacteria None seen Urine Casts 6-10 Hyaline Casts Present Quality VTE Prophylaxis VTE prophylaxis: pharmacologic ordered
[2025-04-26] MEDS: APIXABAN 5 MG TABLET PO ×2 (09:34→21:21)
[2025-04-26] MEDS: ASPIRIN 81 MG ENTERIC TABLET PO (09:34)
[2025-04-26] MEDS: METOPROLOL SUCCINATE EXT REL 50 MG TABCR PO (09:35)
[2025-04-26] MEDS: levETIRAcetam Tablet 250 MG, levETIRAcetam Tablet 500 MG 750 MG PO ×2 (09:35→21:20)
[2025-04-26] MEDS: ATORVASTATIN 40 MG TABLET PO (09:35)
--- NOTE | 2025-04-26 10:31 | P.CONCA_ITS ---
Assessment and Plan Assessment and plan (1) New onset a-fib: Code(s): I48.91 - Unspecified atrial fibrillation Status: Acute Assessment and Plan: From what I am able to gather from the medical record this is a new diagnosis. He spontaneously converted to sinus rhythm. * Continue metoprolol succinate 50mg daily * Continue apixaban 5mg p.o. b.i.d. (CHADs2 Vasc score 4, age, HTN, CVA) * Echo performed last admission unremarkable * Outpatient follow up Cardiology will sign off please call with questions (2) AMS (altered mental status): Code(s): R41.82 - Altered mental status, unspecified Status: Acute Assessment and Plan: Secondary to possible seizure (3) History of CVA (cerebrovascular accident): Code(s): Z86.73 - Personal history of transient ischemic attack (TIA), and cerebral infarction without residual deficits Status: Acute Assessment and Plan: Recent. Neurology to see. On ASA, statin. History of Present Illness History of Present Illness Consult date/time: 04/26/25 10:31 Requesting physician: Kenrick Ferrera APRN Consult reason: atrial fibrillation Reason For Visit: Possible seizure activity, Recent CVA, New AFIB Narrative: Giancarlo Clark is a 69 year old male who was recently admitted for CVA and discharged yesterday. He returned after only being home for a short period of time because of concern for seizure. Cardiology is consulted for atrial fibrillation. History was obtained via patient's medical record because patient remains confused and his is not at the bedside. Patient reportedly smoked marijuana when he was discharged home and his found him unresponsive a short time later. EMS was summoned and per report he was hypotensive and because of altered mental status and rigidity there was concern for seizure. Patient is able to tell me that he does not feel any chest pain or shortness of breath but does remember feeling palpitations. He is back in sinus rhythm at this point. Remains confused and has a sitter at the bedside. Review of Systems 2 Review of Systems: ROS unobtainable: Yes unobtainable due to mental status PMFSH Past Medical History Medical History Hyperlipidemia Acute cerebrovascular accident Sprain of right elbow Metabolic syndrome Encounter for screening for cardiovascular disorders Acute midline low back pain with left-sided sciatica Hyperglycemia Hypertension Surgical History Surgical History History of bilateral knee replacement History of orthopedic surgery Right upper extremity reconstruction Family History Family History Mother Family history of diabetes mellitus in first degree relative Sibling Carcinoma of colon Uterine cancer Social History Social History Smoking packs per day: 0.5 Smoking cigarettes per day: 10.0 Years smoked: 15 Smoking pack-years: 7.50 Smoking status: Former smoker Tobacco type: cigarettes Second hand tobacco smoke exposure: Yes Smoking end date: 09/15/04 Alcohol intake: current Drinks per week: 1 Substance use: current Substance use type: marijuana Other substance usage details: 3x weekly Last use: today Do You Feel Safe in your Home?: Yes Lack of Transportation: No Lack of Food: Never True Current Housing: I Have Housing Concerned About Future Housing: No Difficulty Paying Gas/Electric Bills: No Difficulty Paying for Meds: No Currently Unemployed: No Education: High School Diploma/GED Difficulty w/ Childcare or Family Care: No Living arrangements: with family Spiritual care concerns: No Meds Home Medications and Allergies Home Medications ?Medication ?Instructions ?Recorded ?Confirmed ?Type lisinopril 20 See Rx Instructions .Route 11/22/24 04/26/25 Rx mg-hydrochlorothiazide 12.5 mg .COMPLEX #180 tabs tablet metoprolol succinate 50 mg 50 mg PO DAILY #90 tabs 11/22/24 04/26/25 Rx tablet,extended release 24 hr acetaminophen 500 mg tablet 1,000 mg (2 x 500 mg) PO Q6H PRN 12/28/24 04/26/25 Rx (Tylenol Extra Strength) pain #50 tabs aspirin 81 mg tablet,delayed 81 mg PO QAM 30 days #30 tabs 04/25/25 04/26/25 Rx release atorvastatin 40 mg tablet 40 mg PO DAILY 30 days #30 tabs 04/25/25 04/26/25 Rx clopidogrel 75 mg tablet 75 mg PO QAM 30 days #30 tabs 04/25/25 04/26/25 Rx Allergies Allergy/AdvReac Type Severity Reaction Status Date / Time Penicillins Allergy Unknown Anaphylaxis Verified 04/22/25 15:45 Vital Signs Vital Signs - 24 hr 04/25/25 17:26 04/25/25 19:27 04/25/25 21:59 Temperature Pulse Rate 118 H 98 101 H Respiratory Rate 17 16 12 Blood Pressure 112/72 103/66 Pulse Oximetry 96 96 99 Oxygen Delivery Room Air 04/25/25 22:45 04/26/25 00:00 04/26/25 00:00 Temperature 36.9 C 37.3 C Pulse Rate 94 96 Respiratory Rate 18 18 Blood Pressure 94/59 L 94/59 L Pulse Oximetry 95 95 Oxygen Delivery Room Air 04/26/25 00:00 04/26/25 02:29 04/26/25 04:00 Temperature Pulse Rate 130 H 84 Respiratory Rate Blood Pressure Pulse Oximetry Oxygen Delivery Room Air 04/26/25 04:00 04/26/25 04:00 04/26/25 06:35 Temperature 37.1 C Pulse Rate 87 85 82 Respiratory Rate 16 Blood Pressure 127/87 Pulse Oximetry 90 Oxygen Delivery 04/26/25 07:56 04/26/25 09:35 Temperature 36.1 C L Pulse Rate 87 80 Respiratory Rate 20 Blood Pressure 117/77 Pulse Oximetry 100 Oxygen Delivery Exam 2 Const: General: comfortable, no acute distress, alert and awake O rientation/consciousness: No patient oriented x3 HENMT: Head: normal to inspection Eyes: General: appearance normal, both eyes and all related structures P upils: Equal, round and reactive pupils present Neck: Neck: normal visual inspection, supple and no JVD Carotids: normal carotid upstroke Resp: Effort & Inspection: normal respiratory effort Auscultation: clear to auscultation bilaterally Cardio: Rate: regular rate Rhythm: regular rhythm Heart sounds: S1 normal heart sound present, S2 normal heart sound present and no murmurs GI: Auscultation: normal bowel sounds Skin: General skin exam: normal color Neuro: General: patient oriented x3 Cranial nerves: Yes Equal, round and reactive pupils present Extrem: General: normal to inspection Psych: Appearance: grossly normal Mental Status: mental status grossly abnormal Results Labs and Meds 04/26/25 03:40 04/26/25 03:40 Lab results: Cardiac Enzymes 04/25/25 04/26/25 Range/Units 17:51 03:40 AST 22 28 (17-59) U/L Troponin I < 0.012 (0.000-0.034) ng/mL CBC 04/25/25 04/26/25 Range/Units 17:51 03:40 WBC 12.9 H 11.2 H (4.5-10.0) K/mm3 RBC 4.79 4.83 (4.6-6.20) M/mm3 Hgb 15.3 15.1 (14.0-18.0) g/dL Hct 42.7 44.8 (42.0-52.0) % Plt Count 322 293 (150-375) k/mm3 Lymph # (Auto) 1.77 2.00 (0.9-3.2) K/mm3 [place] # (Auto) 0.9 H 1.0 H (0.1-0.6) K/mm3 Eos # (Auto) 0.2 0.1 (0-0.3) K/mm3 Baso # (Auto) 0.1 0.1 (0.0-0.1) K/mm3 Comprehensive Metabolic Panel 04/25/25 04/26/25 Range/Units 17:51 03:40 Sodium 135 L 138 (137-145) mmol/L Potassium 3.5 3.9 (3.4-5.0) mmol/L Chloride 101 106 (98-107) mmol/L Carbon Dioxide 25 24 (22-30) mmol/L BUN 15 14 (9-20) mg/dL Creatinine 1.24 0.94 (0.7-1.3) mg/dL Glucose 215 H 120 H (65-110) mg/dL Calcium 8.7 8.8 (8.4-10.2) mg/dL AST 22 28 (17-59) U/L ALT 13 15 (6-50) U/L Alkaline Phosphatase 79 81 (38-126) U/L Total Protein 6.5 6.7 (6.3-8.2) g/dL Albumin 3.9 4.0 (3.5-5.1) g/dL Intake and Output 04/25/25 04/26/25 04/26/25 23:59 07:59 15:59 Intake Total 1250 0 Balance 1250 0 Intake: IV 1250 Sodium Chloride 0.9% IV 1,000 1000 ml @ 999 mls/hr IV CONT .Q1H1M STA Rx#:[id number] Magnesium Sulf 2 gm/Water 50Ml 50 2 gm In 50 ml @ 50 mls/hr IVPB ONCE ONE Rx#:[id number] levETIRAcetam 1000MG/UHUA959IN 100 1,000 mg In 100 ml @ 400 mls/hr IVPB ONCE STA Rx#:[id number] levETIRAcetam 500MG/NACL 100ML 100 500 mg In 100 ml @ 400 mls/hr IVPB ONCE STA Rx#:[id number] Oral 0 Other: # Incontinent Voids 2 Patient Weight 04/26/25 23:59 Weight 69.6 kg
[2025-04-27] VITALS (9 sets, daily range): BP systolic 106–165; BP diastolic 50–93; PULSE 55–73; RESP 18–20; TEMP 36.4–36.9; O2SAT 97–100
[2025-04-27 04:51] LABS: Hematocrit 43.8 % (42.0-52.0); Hemoglobin 15.3 g/dL (14.0-18.0); Immature Granulocyte Percent A 0.2 % (0-0.5); Lymphocytes Absolute Auto 1.50 K/mm3 (0.9-3.2); Mean Corpuscular HGB Conc 34.9 g/dl (32-36); Mean Corpuscular Hemoglobin 31.7 pg (26-34); Mean Corpuscular Volume 90.9 fl (80-100); Nucleated Red Blood Cells Absolute Auto 0.000 K/mm3 (0.0-0.012); Nucleated Red Blood Cells Perc 0.0 % (0.0-0.2); Platelet Count Result 292 k/mm3 (150-375); Red Blood Count 4.82 M/mm3 (4.6-6.20); White Blood Count 8.1 K/mm3 (4.5-10.0)
[2025-04-27 05:10] LABS: Alanine Aminotransferase 12 U/L (6-50); Albumin Level 4.1 g/dL (3.5-5.1); Alkaline Phosphatase 78 U/L (38-126); Anion Gap 4 mmol/L (4-12); Aspartate Amino Transferase 30 U/L (17-59); Bilirubin,Total 1.2 mg/dL (0.2-1.3); Blood Urea Nitrogen 16 mg/dL (9-20); Calcium 9.4 mg/dL (8.4-10.2); Carbon Dioxide 25 mmol/L (22-30); Chloride 105 mmol/L (98-107); Estimated CRCL calculation 60 ml/min; Estimated Glomerular Filt Rate > 60; Glucose 95 mg/dL (65-110); Magnesium 2.1 mg/dL (1.6-2.3); Potassium 3.9 mmol/L (3.4-5.0); Sodium 134 mmol/L (137-145); Total Protein 6.7 g/dL (6.3-8.2)
[2025-04-27] MEDS: levETIRAcetam Tablet 250 MG, levETIRAcetam Tablet 500 MG 750 MG PO ×2 (08:22→20:59)
[2025-04-27] MEDS: ASPIRIN 81 MG ENTERIC TABLET PO (08:23)
[2025-04-27] MEDS: ATORVASTATIN 40 MG TABLET PO (08:23)
[2025-04-27] MEDS: METOPROLOL SUCCINATE EXT REL 50 MG TABCR PO (08:23)
[2025-04-27] MEDS: APIXABAN 5 MG TABLET PO ×2 (08:23→21:00)
--- NOTE | 2025-04-27 08:32 | P.PNIM_ITS ---
Progress Note: A&P Assessment and Plan (1) AMS (altered mental status): Code(s): R41.82 - Altered mental status, unspecified Status: Acute Assessment and Plan: * Patient admitted on 04/22 with acute CVA, discharged on 04/25 * Patient home for a short while when he smoked marijuana then shortly thereafter had episode of unresponsiveness * says patient was rigid for a while then very confused upon regaining co nsciousness, concern for seizure activity * Neurology consulted, Keppra given 1500 mg loading dose then 750 mg BID ordered * EEG ordered pending * Neurology consult pending (2) Acute cerebrovascular accident: Code(s): I63.9 - Cerebral infarction, unspecified Status: Acute Assessment and Plan: * Recent admission with diagnosis of acute CVA with multiple areas of chronic infarct noted on CT scans. * Discovery of atrial fibrillation on EKG helps explain acute and chronic infarcts. * now on Eliquis * New episode of altered mental status after discharge home brings patient back to hospital same day as previous discharge (3) New onset a-fib: Code(s): I48.91 - Unspecified atrial fibrillation Status: Acute Assessment and Plan: * Afib RVR on initial EKG * Neurology instructed to continue aspirin, discontinue Plavix and instead start Eliquis * Repeat CTA Head/Neck no acute LVO * Continue metoprolol for rate control * continue Eliquis * cardiology consulted * Continue Metoprolol succinate 50mg daily * Continue Eliquis 5mg BID * Signed off (4) Hypertension: Qualifiers: Hypertension type: essential hypertension Qualified Code(s): I10 - Essential (primary) hypertension Code(s): I10 - Essential (primary) hypertension Status: Acute Assessment and Plan: * Noted history, blood pressure stable on admission * continue metoprolol for HR control * resume lisinopril-HCTZ * Stable (5) Agitation: Code(s): R45.1 - Restlessness and agitation Status: Acute Assessment and Plan: * On arrival to the floor he was confused, agitated, pulling at medical equipment and not redirectable * Soft limb restraints ordered by another provider along with IV Ativan * Repeat episode around 0300, another dose of Ativan ordered * Patient calm this AM with sitter at bedside, restraints removed Subjective Date/time seen: 04/27/25 08:32 Interval history: 69-year-old male patient who is admitted to the hospital for altered mental status with possible seizure activity. He was admitted on 04/22 with acute CVA and was discharged home on 04/25. He was only home for a very short time where it was reported he smoked marijuana and then when his went to get his computer to bring it to him he went unresponsive. 04/27/2025 Patient sitting comfortably in bed at time of examination. No acute overnight events. Denies any chest pain, shortness off breath, nausea/vomiting, headache or dizziness at this time. Pending neurological consultation at this time. Plan for EEG today. Review of Systems Review of Systems: All systems reviewed & are unremarkable except as noted in HPI and below ROS unobtainable: Yes unobtainable due to mental status Exam Narrative: General: NAD, disheveled Eyes: EOMI ENT: neck supple Cardiovascular: Regular rate and rhythm Respiratory: Clear to auscultation, respirations even and unlabored on RA Gastrointestinal: Soft, non tender Genitourinary: no suprapubic tenderness Musculoskeletal: No edema Skin: warm, dry Neuro: Alert and oriented to self, year. Otherwise confused. Cranial nerves II- XII intact. Face symmetric. Speech clear. Strength 5/5 in BUEs/BLEs. Psych: Mood appropriate Objective Data Vital Signs Vital Signs: Vital Signs - 24 hr 04/26/25 09:35 04/26/25 09:45 04/26/25 12:00 Temperature 97.3 F L Pulse Rate 80 75 59 L Respiratory Rate 16 Blood Pressure 152/73 H Pulse Oximetry 100 Oxygen Delivery 04/26/25 12:30 04/26/25 14:00 04/26/25 16:00 Temperature 98.1 F Pulse Rate 63 55 L 66 Respiratory Rate 20 Blood Pressure 110/75 Pulse Oximetry 100 Oxygen Delivery 04/26/25 16:00 04/26/25 18:00 04/26/25 19:46 Temperature 98.2 F Pulse Rate 66 66 62 Respiratory Rate 16 Blood Pressure 116/65 Pulse Oximetry 100 Oxygen Delivery 04/26/25 20:00 04/26/25 20:00 04/26/25 22:00 Temperature Pulse Rate 62 62 66 Respiratory Rate 16 Blood Pressure Pulse Oximetry 100 Oxygen Delivery Room Air 04/27/25 00:00 04/27/25 00:00 04/27/25 00:00 Temperature 98.3 F Pulse Rate 55 L 55 L 55 L Respiratory Rate 18 18 Blood Pressure 106/50 L Pulse Oximetry 100 100 Oxygen Delivery Room Air 04/27/25 04:00 04/27/25 04:00 04/27/25 04:00 Temperature 97.7 F Pulse Rate 65 59 L 59 L Respiratory Rate 19 19 Blood Pressure 119/64 Pulse Oximetry 98 98 Oxygen Delivery Room Air 04/27/25 08:04 04/27/25 08:23 Temperature 97.5 F L Pulse Rate 62 69 Respiratory Rate 18 Blood Pressure 144/93 H Pulse Oximetry 98 Oxygen Delivery Intake/Output Intake/Output: Intake & Output 04/24/25 04/25/25 04/26/25 04/27/25 23:59 23:59 23:59 23:59 Intake Total 1250 520 280 Output Total 700 150 Balance 1250 -180 130 Meds/Results Medications: Active Medications Generic Name Dose Route Start Last Admin Trade Name Freq PRN Reason Stop Dose Admin Acetaminophen 1,000 mg 04/26/25 03:20 Acetaminophen 500 Mg Tablet PO Q6H PRN pain Apixaban 5 mg 04/26/25 09:00 04/27/25 08:23 Apixaban 5 Mg Tablet PO 5 mg Q12HR [facility] Administration Aspirin 81 mg 04/26/25 09:00 04/27/25 08:23 Aspirin 81 Mg Enteric Tablet PO 81 mg QAM [facility] Administration Atorvastatin Calcium 40 mg 04/26/25 09:00 04/27/25 08:23 Atorvastatin 40 Mg Tablet PO 40 mg DAILY [facility] Administration Dextrose 12.5 gm 04/25/25 22:09 Dextrose 50% 25 Gm/50 Ml Syringe IV PUSH PRN PRN Hypoglycemia Protocol Glucagon 1 mg 04/25/25 22:09 Glucagon For Inj 1 Mg Vial IM PRN PRN Hypoglycemia Protocol Glucose 15 gm 04/25/25 22:09 Glucose Oral Gel 15 Gm Of Glucse In 37.5 Gm Tube PO PRN PRN Hypoglycemia Protocol Hydrochlorothiazide 25 mg 04/27/25 09:00 04/27/25 08:23 Hydrochlorothiazide 25 Mg Tablet PO 25 mg DAILY [facility] Administration Dextrose 1,000 mls @ 100 mls/hr 04/25/25 22:09 Dextrose 5% 1,000 Ml IVPB PRN PRN Hypoglycemia Protocol Levetiracetam 250 mg/ 750 mg 04/26/25 09:00 04/27/25 08:22 Levetiracetam 500 mg PO 750 mg Q12HR [facility] Administration Lisinopril 40 mg 04/27/25 09:00 04/27/25 08:22 Lisinopril 20 Mg Tablet PO 40 mg QAM [facility] Administration Metoprolol Succinate 50 mg 04/26/25 09:00 04/27/25 08:23 Metoprolol Succinate Ext Rel 50 Mg Tabcr PO 50 mg DAILY [facility] Administration Radiology Results: ITS Impressions Chest X-Ray 04/25/25 18:35 IMPRESSION: No focal infiltrate or effusion. Head CT 04/25/25 19:00 Impression: No acute intracranial hemorrhage or suspicious mass effect. Head/Neck CTA 04/25/25 21:05 IMPRESSION: 1. Percent stenosis per NASCET criteria is 0% on the right and 19% on the left. 2. Soft plaque is identified within the right carotid bulb just beyond its origin, not visualized on the previous study. Labs Labs: Laboratory Results - last 24 hr 04/27/25 04:01 WBC 8.1 RBC 4.82 Hgb 15.3 Hct 43.8 MCV 90.9 MCH 31.7 MCHC 34.9 RDW 13.4 Plt Count 292 MPV 9.5 Immature Gran % (Auto) 0.2 Neut % (Auto) 67.0 Lymph % (Auto) 18.6 [place] % (Auto) 8.3 Eos % (Auto) 5.0 H Baso % (Auto) 0.9 Lymph # (Auto) 1.50 [place] # (Auto) 0.7 H Eos # (Auto) 0.4 H Baso # (Auto) 0.1 Abs Immat Gran (auto) 0.02 Absolute Neuts (auto) 5.4 Absolute Nucleated RBC 0.000 Nucleated RBC % 0.0 Sodium 134 L Potassium 3.9 Chloride 105 Carbon Dioxide 25 Anion Gap 4 BUN 16 Creatinine 0.94 Estim Creat Clear Calc 60 Estimated GFR > 60 Glucose 95 Calcium 9.4 Magnesium 2.1 Total Bilirubin 1.2 AST 30 ALT 12 Alkaline Phosphatase 78 Total Protein 6.7 Albumin 4.1 Quality VTE Prophylaxis VTE prophylaxis: pharmacologic ordered
--- NOTE | 2025-04-27 13:09 | PC.NURSE ---
tech in to do eeg now
--- NOTE | 2025-04-28 | ECHO_ITS ---
Patient Info Name: Giancarlo Clark Age: 69 years : 1955 Gender: Male Ht: 67 in Wt: 151 lbs BSA: 1.81 m2 HR: 63 bpm BP: 158 / 98 mmHg Heart Rhythm: Sinus Rhythm Technical Quality: Good Exam Date: 04/28/2025 2:18 PM Patient Status: I Admit Date: 04/26/2025 Exam Type: CA echo doppler color flow Complete two-dimensional, color flow and Doppler transthoracic echocardiogram is performed. Staff Referring Physician: Jaycee Chery [employer] Farmer: Codi Patterson Attending Provider: Jose Antonio Mena Summary 1. Complete two-dimensional, color flow and Doppler transthoracic echocardiogram is performed. 2. Normal left and right ventricular size and systolic function, hyperdynamic LV. 3. Trivial amounts of aortic, tricuspid and pulmonic regurgitation. 4. Normal sinus rhythm, study requested because of atrial fib. Left Ventricle Left ventricular chamber dimension is normal. Left ventricular systolic function is hyperdynamic, estimated at >70. The left ventricular diastolic function is normal. Right Ventricle Right ventricular chamber dimension is normal. Left Atria Left atrial chamber dimension is normal. Right Atria Right atrial chamber dimension is normal. Aortic Valve The aortic valve is trileaflet. There is mild aortic valve sclerosis. There is trace aortic valve regurgitation. Pulmonic Valve The pulmonic valve is normal. There is trace pulmonic regurgitation. Mitral Valve The mitral valve has normal leaflets. Tricuspid Valve The tricuspid valve leaflets are normal. There is trace tricuspid valve regurgitation. Pericardium/Pleural The pericardium appears normal. Aorta The aortic root size at the sinus of Valsalva is normal. Left Ventricular Outflow Tract Name Value Normal LVOT 2D LVOT Diameter 2.0 cm LVOT Doppler LVOT Peak Velocity 105 cm/s LVOT Peak Gradient 4 mmHg LVOT Mean Gradient 2 mmHg LVOT VTI 22 cm LVOT Stroke Volume 70 ml LVOT CO 4.4 l/min LVOT CI 2.4 l/min/m2 Pulmonic Valve Name Value Normal RVOT Doppler RVOT Peak Velocity 75 cm/s RVOT Peak Gradient 2 mmHg PV Doppler PV Peak Velocity 96 cm/s PV Peak Gradient 4 mmHg Mitral Valve Name Value Normal MV Diastolic Function MV E Peak Velocity 69 cm/s MV A Peak Velocity 89 cm/s MV E/A 0.8 MV Decel Time (PW) 316 ms Tricuspid Valve Name Value Normal TV Regurgitation Doppler TR Peak Velocity 250 cm/s TR Peak Gradient 25 mmHg Aortic Valve Name Value Normal AV Doppler AV Peak Velocity 147 cm/s AV Peak Gradient 9 mmHg AV Area (Cont Eq Oskar) 2.3 cm2 AV DI (Oskar) 0.71 AV Regurgitation 2D LVOT Area 3.2 cm2 Ventricles Name Value Normal LV Dimensions 2D/MM IVS Diastolic Thickness (2D) 0.8 cm 0.6-1.0 LVID Diastole (2D) 4.5 cm 4.2-5.8 LVIW Diastolic Thickness (2D) 1.0 cm 0.6-1.0 LVID Systole (2D) 2.8 cm 2.5-4.0 LVOT Diameter 2.0 cm LV Mass (2D Cubed) 143.72 g 88.00-224.00 LV Mass Index (2D Cubed) 80 g/m2 49-115 Relative Wall Thickness (2D) 0.46 <=0.42 LV Fractional Shortening/Ejection Fraction 2D/MM LV Fractional Shortening (2D) 38 % 25-43 LV EF (2D Teichholz) 69 % LV Diastolic Volume (4C MOD) 94 ml LV EF (4C MOD) 59 % LV Diastolic Volume (2C MOD) 85 ml LV EF (2C MOD) 53 % LV Diastolic Volume (BP MOD) 94 ml 62-150 LV Diastolic Volume Index (BP MOD) 52 ml/m2 34-74 LV Systolic Volume (BP MOD) 42 ml 21-61 LV Systolic Volume Index (BP MOD) 23 ml/m2 11-31 LV EF (BP MOD) 56 % 52-72 LV Diastolic Length (4C) 7.3 cm LV Systolic Length (4C) 6.2 cm LV Stroke Volume (4C MOD) 55 ml Atria Name Value Normal LA Dimensions LA Volume (4C A-L) 35 ml LA Volume (BP A-L) 39 ml Report Signatures
[2025-04-28 05:14] VITALS: BP 148/90; PULSE 73; RESP 14; TEMP 36.5; O2SAT 100
[2025-04-28 06:03] LABS: Hematocrit 43.0 % (42.0-52.0); Hemoglobin 15.0 g/dL (14.0-18.0); Immature Granulocyte Percent A 0.2 % (0-0.5); Lymphocytes Absolute Auto 1.64 K/mm3 (0.9-3.2); Mean Corpuscular HGB Conc 34.9 g/dl (32-36); Mean Corpuscular Hemoglobin 31.3 pg (26-34); Mean Corpuscular Volume 89.8 fl (80-100); Nucleated Red Blood Cells Absolute Auto 0.000 K/mm3 (0.0-0.012); Nucleated Red Blood Cells Perc 0.0 % (0.0-0.2); Platelet Count Result 307 k/mm3 (150-375); Red Blood Count 4.79 M/mm3 (4.6-6.20); White Blood Count 8.3 K/mm3 (4.5-10.0)
[2025-04-28 06:27] LABS: Alanine Aminotransferase 16 U/L (6-50); Albumin Level 4.1 g/dL (3.5-5.1); Alkaline Phosphatase 85 U/L (38-126); Anion Gap 7 mmol/L (4-12); Aspartate Amino Transferase 35 U/L (17-59); Bilirubin,Total 0.9 mg/dL (0.2-1.3); Blood Urea Nitrogen 16 mg/dL (9-20); Calcium 9.4 mg/dL (8.4-10.2); Carbon Dioxide 27 mmol/L (22-30); Chloride 101 mmol/L (98-107); Estimated CRCL calculation 59 ml/min; Estimated Glomerular Filt Rate > 60; Glucose 121 mg/dL (65-110); Magnesium 1.8 mg/dL (1.6-2.3); Potassium 3.7 mmol/L (3.4-5.0); Sodium 135 mmol/L (137-145); Total Protein 7.0 g/dL (6.3-8.2)
[2025-04-28 08:14] VITALS: BP 153/76; PULSE 69; O2SAT 100
[2025-04-28] MEDS: APIXABAN 5 MG TABLET PO ×2 (08:15→20:32)
[2025-04-28] MEDS: levETIRAcetam Tablet 250 MG, levETIRAcetam Tablet 500 MG 750 MG PO (08:15)
[2025-04-28 08:16] VITALS: PULSE 69
[2025-04-28] MEDS: METOPROLOL SUCCINATE EXT REL 50 MG TABCR PO (08:16)
[2025-04-28] MEDS: ASPIRIN 81 MG ENTERIC TABLET PO (08:16)
[2025-04-28] MEDS: ATORVASTATIN 40 MG TABLET PO (08:16)
--- NOTE | 2025-04-28 08:42 | P.PNIM_ITS ---
Progress Note: A&P Assessment and Plan (1) AMS (altered mental status): Code(s): R41.82 - Altered mental status, unspecified Status: Acute Assessment and Plan: * Patient admitted on 04/22 with acute CVA, discharged on 04/25 * Patient home for a short while when he smoked marijuana then shortly thereafter had episode of unresponsiveness * says patient was rigid for a while then very confused upon regaining co nsciousness, concern for seizure activity * Neurology consulted, Keppra given 1500 mg loading dose then 750 mg BID ordered * EEG: abnormal EEG due to presence of mild diffuse background slowing suggested underlying encephalopathy. However no focal or paroxysmal epileptiform abnormality was seen. * Discussed with Neurology consult * Switch Keppra to Lacosamide 100mg and increase that to 150 mg twice a day after 1 week and then 200 mg twice a day to continue (2) Agitation: Code(s): R45.1 - Restlessness and agitation Status: Acute Assessment and Plan: * Upon admission: On arrival to the floor he was confused, agitated, pulling at medical equipment and not redirectable * Soft limb restraints ordered by another provider along with IV Ativan * Repeat episode around 0300, another dose of Ativan ordered * Patient calm this AM with sitter at bedside, restraints removed * 04/28 Code brisa called as patient was agitated and barred himself in his bathroom then subsequently tried leaving the floor * Psych consult was placed for worsening agitation in the setting of post CVA and AMS * Recommend supportive measures first line * Olanzapine IM/PO * avoid congruent use of Ativan and Olanzapine * Maintain sitter, avoid restraints * Monitor for respiratory depression, hypotension (3) Acute cerebrovascular accident: Code(s): I63.9 - Cerebral infarction, unspecified Status: Acute Assessment and Plan: * Recent admission with diagnosis of acute CVA with multiple areas of chronic infarct noted on CT scans. * Discovery of atrial fibrillation on EKG helps explain acute and chronic infarcts. * now on Eliquis * New episode of altered mental status after discharge home brings patient back to hospital same day as previous discharge (4) New onset a-fib: Code(s): I48.91 - Unspecified atrial fibrillation Status: Acute Assessment and Plan: * Afib RVR on initial EKG * Neurology instructed to continue aspirin, discontinue Plavix and instead start Eliquis * Repeat CTA Head/Neck no acute LVO * Continue metoprolol for rate control * continue Eliquis * cardiology consulted * Continue Metoprolol succinate 50mg daily * Continue Eliquis 5mg BID * Signed off (5) Hypertension: Qualifiers: Hypertension type: essential hypertension Qualified Code(s): I10 - Essential (primary) hypertension Code(s): I10 - Essential (primary) hypertension Status: Acute Assessment and Plan: * Noted history, blood pressure stable on admission * continue metoprolol for HR control * resume lisinopril-HCTZ * Stable Subjective Date/time seen: 04/28/25 08:42 Interval history: 69-year-old male patient who is admitted to the hospital for altered mental status with possible seizure activity. He was admitted on 04/22 with acute CVA and was discharged home on 04/25. He was only home for a very short time where it was reported he smoked marijuana and then when his went to get his computer to bring it to him he went unresponsive. 04/28/2025 Patient examined in bed. Neurology recommends switching Keppra to lacosamide 100mg BID (with increase to 150mg after 1week then 200mg after that). Code purple was called as patient was barring himself in the bathroom then tried to walk out of department. Pt was diverted back to room and psych consult was placed. They recommended starting patient on Olanzapine with consideration for Ativan if ineffective. EEG was obtained yesterday which was cleared by Neurology. Blood work and vitals remain stable. Review of Systems Review of Systems: All systems reviewed & are unremarkable except as noted in HPI and below ROS unobtainable: Yes unobtainable due to mental status Exam Narrative: General: NAD, disheveled Eyes: EOMI ENT: neck supple Cardiovascular: Regular rate and rhythm Respiratory: Clear to auscultation, respirations even and unlabored on RA Gastrointestinal: Soft, non tender Genitourinary: no suprapubic tenderness Musculoskeletal: No edema Skin: warm, dry Neuro: Alert and oriented to self, year. Otherwise confused. Cranial nerves II- XII intact. Face symmetric. Speech clear. Strength 5/5 in BUEs/BLEs. Psych: Mood appropriate Objective Data Vital Signs Vital Signs: Vital Signs - 24 hr 04/27/25 10:00 04/27/25 10:29 04/27/25 11:34 Temperature 97.5 F L Pulse Rate 68 61 Respiratory Rate 18 Blood Pressure 142/77 H Pulse Oximetry 97 Oxygen Delivery Room Air 04/27/25 16:00 04/27/25 16:24 04/27/25 21:15 Temperature 98.5 F 97.8 F Pulse Rate 73 56 L Respiratory Rate 20 18 Blood Pressure 165/68 H 153/77 H Pulse Oximetry 97 99 Oxygen Delivery Room Air 04/28/25 05:14 04/28/25 08:14 04/28/25 08:16 Temperature 97.7 F Pulse Rate 73 69 69 Respiratory Rate 14 Blood Pressure 148/90 H 153/76 H Pulse Oximetry 100 100 Oxygen Delivery Intake/Output Intake/Output: Intake & Output 04/25/25 04/26/25 04/27/25 04/28/25 23:59 23:59 23:59 23:59 Intake Total 8030 725 3295 250 Output Total 700 250 Balance 1250 -180 990 250 Meds/Results Medications: Active Medications Generic Name Dose Route Start Last Admin Trade Name Freq PRN Reason Stop Dose Admin Acetaminophen 1,000 mg 04/26/25 03:20 Acetaminophen 500 Mg Tablet PO Q6H PRN pain Apixaban 5 mg 04/26/25 09:00 04/28/25 08:15 Apixaban 5 Mg Tablet PO 5 mg Q12HR JUSTINA Administration Aspirin 81 mg 04/26/25 09:00 04/28/25 08:16 Aspirin 81 Mg Enteric Tablet PO 81 mg QAM JUSTINA Administration Atorvastatin Calcium 40 mg 04/26/25 09:00 04/28/25 08:16 Atorvastatin 40 Mg Tablet PO 40 mg DAILY JUSTINA Administration Dextrose 12.5 gm 04/25/25 22:09 Dextrose 50% 25 Gm/50 Ml Syringe IV PUSH PRN PRN Hypoglycemia Protocol Glucagon 1 mg 04/25/25 22:09 Glucagon For Inj 1 Mg Vial IM PRN PRN Hypoglycemia Protocol Glucose 15 gm 04/25/25 22:09 Glucose Oral Gel 15 Gm Of Glucse In 37.5 Gm Tube PO PRN PRN Hypoglycemia Protocol Hydrochlorothiazide 25 mg 04/27/25 09:00 04/28/25 08:16 Hydrochlorothiazide 25 Mg Tablet PO 25 mg DAILY JUSTINA Administration Dextrose 1,000 mls @ 100 mls/hr 04/25/25 22:09 Dextrose 5% 1,000 Ml IVPB PRN PRN Hypoglycemia Protocol Levetiracetam 250 mg/ 750 mg 04/26/25 09:00 04/28/25 08:15 Levetiracetam 500 mg PO 750 mg Q12HR JUSTINA Administration Lisinopril 40 mg 04/27/25 09:00 04/28/25 08:15 Lisinopril 20 Mg Tablet PO 40 mg QAM JUSTINA Administration Metoprolol Succinate 50 mg 04/26/25 09:00 04/28/25 08:16 Metoprolol Succinate Ext Rel 50 Mg Tabcr PO 50 mg DAILY JUSTINA Administration Radiology Results: ITS Impressions Chest X-Ray 04/25/25 18:35 IMPRESSION: No focal infiltrate or effusion. Head CT 04/25/25 19:00 Impression: No acute intracranial hemorrhage or suspicious mass effect. Head/Neck CTA 04/25/25 21:05 IMPRESSION: 1. Percent stenosis per NASCET criteria is 0% on the right and 19% on the left. 2. Soft plaque is identified within the right carotid bulb just beyond its origin, not visualized on the previous study. Labs Labs: Laboratory Results - last 24 hr 04/26/25 04/28/25 20:23 05:51 WBC 8.3 RBC 4.79 Hgb 15.0 Hct 43.0 MCV 89.8 MCH 31.3 MCHC 34.9 RDW 12.9 Plt Count 307 MPV 9.3 Immature Gran % (Auto) 0.2 Neut % (Auto) 63.9 Lymph % (Auto) 19.8 [place] % (Auto) 10.7 H Eos % (Auto) 4.7 H Baso % (Auto) 0.7 Lymph # (Auto) 1.64 [place] # (Auto) 0.9 H Eos # (Auto) 0.4 H Baso # (Auto) 0.1 Abs Immat Gran (auto) 0.02 Absolute Neuts (auto) 5.3 Absolute Nucleated RBC 0.000 Nucleated RBC % 0.0 Sodium 135 L Potassium 3.7 Chloride 101 Carbon Dioxide 27 Anion Gap 7 BUN 16 Creatinine 0.96 Estim Creat Clear Calc 59 Estimated GFR > 60 Glucose 121 H Calcium 9.4 Magnesium 1.8 Total Bilirubin 0.9 AST 35 ALT 16 Alkaline Phosphatase 85 Total Protein 7.0 Albumin 4.1 Urine Opiates Screen Cancelled Urine Methadone Screen Cancelled Ur Barbiturates Screen Cancelled Ur Phencyclidine Scrn Cancelled Ur Amphetamine Screen Cancelled U Benzodiazepines Scrn Cancelled Urine Cocaine Screen Cancelled U Cannabinoids Screen Cancelled Quality VTE Prophylaxis VTE prophylaxis: pharmacologic ordered
--- NOTE | 2025-04-28 10:39 | WPDNEUROLOGY ---
Neurology EEG Report General Information Date of Study: 04/27/25 TEST Electroencephalogram DIAGNOSIS history of recent stroke and episode of unresponsiveness CONDITION OF RECORDING bedside according EEG NUMBER [id number] CLINICAL HISTORY Patient had an episode of unresponsiveness after smoking marijuana. According to the patient's he was rigid for while and then very confused upon regaining consciousness. EEG DESCRIPTION The background activity consists of predominantly theta activity at 7 hertz with an amplitude of 15-30 microvolts which appears mildly formed. Patient was frequently drowsy during which further attenuation of background activity and intermittent rhythmic delta activity was noted. Hyperventilation or photic stimulation were not performed. Patient did not progress to stage 2 sleep. IMPRESSION This is a mild abnormal EEG due to presence of diffuse background slowing suggestive of generalized encephalopathy however no focal or paroxysmal abnormality was noted.
--- NOTE | 2025-04-28 10:46 | WPDNEUROLOGY ---
Neurology EEG Report General Information Date of Study: 04/28/25 TEST Electroencephalogram DIAGNOSIS seizure disorder CONDITION OF RECORDING Bedside according EEG NUMBER [id number] CLINICAL HISTORY The patient is 74-year-old with history seizure disorder. There is no prior history of seizures. Patient had a 20 minute long seizure spell that started as staring off and then escalated into a generalized seizure. Patient was given Versed and is now currently on [facility] EEG DESCRIPTION during wakefulness the background activity consists of predominantly theta activity as 7 hertz with an amplitude of 15-30 microvolts. This appears poorly organized. Superimposed intermittent rhythmic delta activity was seen. Patient however frequently drowsy during which further attenuation of background activity and prominent intermittent rhythmic delta activity was seen which was frontally dominant. Patient did not progress to stage 2 sleep. Hyperventilation or photic stimulation were not performed. IMPRESSION This is an abnormal EEG due to presence of mild diffuse background slowing suggested underlying encephalopathy. However no focal or paroxysmal epileptiform abnormality was seen.
[2025-04-28 14:00] VITALS: BP 158/98; PULSE 68; RESP 20; TEMP 37; O2SAT 98
--- NOTE | 2025-04-28 14:24 | P.PSYCH_ITS ---
Assessment and Plan Assessment and plan (1) AMS (altered mental status): Qualifiers: Altered mental status type: delirium Qualified Code(s): R41.0 - Disorientation, unspecified Code(s): R41.82 - Altered mental status, unspecified Status: Acute Assessment and Plan: a. Patient presents with confusion and disorientation. b. Unable to accurately identify location, believing she is in a [place] in [place]. c. Impaired memory, inability to provide current date or year. d. Difficulty with basic cognitive tasks such as spelling world backwards. e. Onset of confusion appears relatively recent, possibly related to recent strokes. (2) Agitation: Code(s): R45.1 - Restlessness and agitation Status: Acute Plan For a patient with altered mental status (AMS) and agitation in the context of acute CVA, possible seizure activity, and recent substance use, medication choice must balance efficacy with safety, especially regarding WELD INSPECTOR depressants, seizure threshold, and cardiovascular status. CVA-induced delirium, olanzapine is generally the safer and more effective choice over lorazepam. Lorazepam may worsen delirium and carries higher respiratory and sedation risks, especially in neurologically compromised patients. 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 needs to follow up with psychiatric care to assess need for continued olanzapine use. HPI Data of Consult Date/Time: 04/28/25 14:24 Requesting Physician: Jose Antonio Mena MD Primary Care Provider: Zia Francisco MD Consult Narrative Narrative: Giancarlo Clark Jr. is a 69 year old male with a history of recent strokes and atrial fibrillation, reports being crazy which he believes led to the ambulance being called, though he is unsure who made the call. The onset of confusion appears to have been sudden, starting approximately a week before his previous hospital admission. The patient denies current symptoms of depression, anxiety, or hallucinations. He does not express concerns about his mental or physical wellness, nor does he report feeling frightened by anything or anyone. Appetite: Reported as good. Substance Use: Mr. Fan reports using marijuana once a month, typically smoking two bowls of flower using a bowl. He obtains the marijuana from a friend who grows it. He denies the use of any other substances. Orientation: Mr. Fan's orientation appears impaired. He believes he is currently in a [place] in [place], unable to identify that he is in a hospital. He reports that the date is April but that the season is fall. He does not recall recent major news events but reports that the president is Dilma. 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 when asked if he knew what direction the bathroom was he pointed in the wrong direction. He was able to spell world correctly but was not able to spell it backwards. He was able to tell me the differences and similarities between apples and oranges. judgment appeared fair (when asked if he was walking down the street and saw a piece of mail next to a mail box what would you do? i would put it in the mailbox). He was able to tell me his full name and birthday. Social History: The patient lives with someone named Chiquita. patient was seen by psychiatry on last admission on 04/24/2025. this is likely delirium secondary to CVA Review of Systems 2 Psychiatric: Psychiatric: Reports abnormal sleep pattern, Reports behavioral changes, Reports confusion, Reports difficulty concentrating and Reports memory loss [facility] Past Medical History Medical History (Updated 04/28/25 @ 18:00 by Armando Becerra, TENNIS COURT ATTENDANT) Seizure disorder Hyperlipidemia Acute cerebrovascular accident Sprain of right elbow Metabolic syndrome Encounter for screening for cardiovascular disorders Acute midline low back pain with left-sided sciatica Hyperglycemia Hypertension Surgical History Surgical History History of bilateral knee replacement History of orthopedic surgery Right upper extremity reconstruction Family History Family History Mother Family history of diabetes mellitus in first degree relative Sibling Carcinoma of colon Uterine cancer Social History Social History Smoking packs per day: 0.5 Smoking cigarettes per day: 10.0 Years smoked: 15 Smoking pack-years: 7.50 Smoking status: Former smoker Tobacco type: cigarettes Second hand tobacco smoke exposure: Yes Smoking end date: 09/15/04 Alcohol intake: current Drinks per week: 1 Substance use: current Substance use type: marijuana Other substance usage details: 3x weekly Last use: today Do You Feel Safe in your Home?: Yes Lack of Transportation: No Lack of Food: Never True Current Housing: I Have Housing Concerned About Future Housing: No Difficulty Paying Gas/Electric Bills: No Difficulty Paying for Meds: No Currently Unemployed: No Education: High School Diploma/GED Difficulty w/ Childcare or Family Care: No Living arrangements: with family Spiritual care concerns: No Meds Home Medications and Allergies Home Medications ?Medication ?Instructions ?Recorded ?Confirmed ?Type lisinopril 20 See Rx Instructions .Route 11/22/24 04/26/25 Rx mg-hydrochlorothiazide 12.5 mg .COMPLEX #180 tabs tablet metoprolol succinate 50 mg 50 mg PO DAILY #90 tabs 11/22/24 04/26/25 Rx tablet,extended release 24 hr acetaminophen 500 mg tablet 1,000 mg (2 x 500 mg) PO Q6H PRN 12/28/24 04/26/25 Rx (Tylenol Extra Strength) pain #50 tabs aspirin 81 mg tablet,delayed 81 mg PO QAM 30 days #30 tabs 04/25/25 04/26/25 Rx release atorvastatin 40 mg tablet 40 mg PO DAILY 30 days #30 tabs 04/25/25 04/26/25 Rx clopidogrel 75 mg tablet 75 mg PO QAM 30 days #30 tabs 04/25/25 04/26/25 Rx Allergies Allergy/AdvReac Type Severity Reaction Status Date / Time Penicillins Allergy Unknown Anaphylaxis Verified 04/22/25 15:45 Vital Signs Vital Signs - 24 hr 04/27/25 16:00 04/27/25 16:24 04/27/25 21:15 Temperature 98.5 F 97.8 F Pulse Rate 73 56 L Respiratory Rate 20 18 Blood Pressure 165/68 H 153/77 H Pulse Oximetry 97 99 Oxygen Delivery Room Air 04/28/25 05:14 08/14/25 08:14 04/28/25 08:15 Temperature 97.7 F Pulse Rate 73 69 Respiratory Rate 14 Blood Pressure 148/90 H 153/76 H Pulse Oximetry 100 100 Oxygen Delivery Room Air 04/28/25 08:16 Temperature Pulse Rate 69 Respiratory Rate Blood Pressure Pulse Oximetry Oxygen Delivery Exam 2 Psych: Appearance: disheveled Speech and movement: Normal speech and movement present Affect: normal affect Other: - Minimal speech noted, with brief respo nses to questions. - Thought process is circumstantial, with difficulty providing direct answers to questions. - Denies auditory and visual hallucinations. - Oriented to place (knows she is in [place]). Disoriented to time - Unable to recall recent major news events. - Able to spell WORLD forward but not backward. - Demonstrates concrete thinking - Poor insight. Does not appear to understand the reason for hospitalization or recent medical events. Results Labs 04/28/25 05:51 04/28/25 05:51 Labs: Short CBC 04/28/25 Range/Units 05:51 WBC 8.3 (4.5-10.0) K/mm3 Hgb 15.0 (14.0-18.0) g/dL Hct 43.0 (42.0-52.0) % Plt Count 307 (150-375) k/mm3 [facility] 04/28/25 05:51 Sodium 135 L Potassium 3.7 Chloride 101 Carbon Dioxide 27 BUN 16 Creatinine 0.96 Glucose 121 H Calcium 9.4 Liver Function 04/28/25 Range/Units 05:51 Total Bilirubin 0.9 (0.2-1.3) mg/dL AST 35 (17-59) U/L ALT 16 (6-50) U/L Alkaline Phosphatase 85 (38-126) U/L Albumin 4.1 (3.5-5.1) g/dL
[2025-04-28] MEDS: LORazepam INJ (*CRX) 2 MG/ML VIAL 1 MG IV PUSH (14:37)
--- NOTE | 2025-04-28 14:44 | WPDNEURCNPN ---
Assessment and Plan Assessment and plan (1) Seizure disorder: Code(s): G40.909 - Epilepsy, unspecified, not intractable, without status epilepticus Status: Acute (2) Acute cerebrovascular accident: Code(s): I63.9 - Cerebral infarction, unspecified Status: Acute Assessment and Plan: At the time of presentation with initial stroke he was driving back and forth without realizing why he did that. He apparently drove for 10 hours and had no idea what he did. The location of the stroke is also interesting since it involves corpus callosum slightly to the right of the midline. (3) New onset a-fib: Code(s): I48.91 - Unspecified atrial fibrillation Status: Acute Assessment and Plan: he has not converted to regular sinus rhythm. This of Zyrtec at the time of presentation emergency room. He is now on Eliquis and has been evaluated by window installer. (4) Agitation: Code(s): R45.1 - Restlessness and agitation Status: Acute Assessment and Plan: Apparently this has changed in the last 3 days even though he has not had any further seizures observed by the staff or his . Keppra can sometimes cause aggressive behavior however generally I would expected to happen after some weeks nevertheless in view of this change in his personality I will suggest to switch him to lacosamide 100 mg twice a day. I realize this is a significant change nevertheless since these are still early days with anticonvulsants We can observe him and gradually increase the dose of lacosamide to 200 mg twice a day over the course of next 2-3 weeks. Agitation as a manifestation of a stroke would also be an interesting consideration given the location of his stroke but it is difficult to make a decision about it. Hence I would suggest to continue the anticonvulsant for now. (5) Marijuana use: Code(s): F12.90 - Cannabis use, unspecified, uncomplicated Status: Acute Assessment and Plan: apparently the above seizure-like spell occurred right after he got home and use marijuana once. Although it is difficult to justify keeping somebody on long-term anticonvulsant after such event but he had a rather prolonged spell with a postictal state of confusion. Given the fact that he has had cerebrovascular disease and now atrial fibrillation and spell of unresponsiveness most likely due to seizures I would suggest to keep him on medications to prevent further stroke and also anticonvulsant for now. I would like to see him for follow-up in my office and we can make further determination about continuation of these medications. He should be advised to defer driving for at least 6 months from this spell. His states that he is hard to convince but I will be glad to go over this with him but is somewhat more cooperative. Plan As discussed above we can switch him from Keppra to lacosamide 100 mg twice a day and increase that to 150 mg twice a day after 1 week and then 200 mg twice a day to continue. I would be glad to see him for follow-up in my office in 6-8 weeks time. Consult date: 04/28/25 HPI: Giancarlo Clark Jr. is a 69 year old male Was readmitted after discharge very shortly since he had a prolonged seizure witnessed by his when arrived in the emergency room he was the found to be in atrial fibrillation which eventually reverted back to a sinus rhythm. Patient was started on Keppra 3 days ago and 2 the been a change in his personality cord his pays become combative and irritable. He has not had any further seizures since arriving here. On the previous with when I saw him on 04/25/2025 prior to discharge was found to have a infarct over the right cook corpus callosum. In addition there is also diffuse white matter changes noted. CT angiogram of the head and neck did not show any significant abnormalities. Manic came back from the home he had a CT angiogram and an emergency room which she did not show any additional findings. A soft plaque identified within the right carotid well beyond its origin. Patient denies any other symptoms. His was present and was indeed very helpful. Review of Systems Review of Systems: Patient is generally not combative or argumentative however this has become a new problem. There been some concern regarding the memory but overall he has been functioning fairly well. All systems reviewed & are unremarkable except as noted in HPI and below PMFSH Past Medical History Medical History (Updated 04/28/25 @ 14:55 by Steve Dubose MD) Seizure disorder Hyperlipidemia Acute cerebrovascular accident Sprain of right elbow Metabolic syndrome Encounter for screening for cardiovascular disorders Acute midline low back pain with left-sided sciatica Hyperglycemia Hypertension Surgical History Surgical History History of bilateral knee replacement History of orthopedic surgery Right upper extremity reconstruction Family History Family History Mother Family history of diabetes mellitus in first degree relative Sibling Carcinoma of colon Uterine cancer Social History Social History Smoking packs per day: 0.5 Smoking cigarettes per day: 10.0 Years smoked: 15 Smoking pack-years: 7.50 Smoking status: Former smoker Tobacco type: cigarettes Second hand tobacco smoke exposure: Yes Smoking end date: 09/15/04 Alcohol intake: current Drinks per week: 1 Substance use: current Substance use type: marijuana Other substance usage details: 3x weekly Last use: today Do You Feel Safe in your Home?: Yes Lack of Transportation: No Lack of Food: Never True Current Housing: I Have Housing Concerned About Future Housing: No Difficulty Paying Gas/Electric Bills: No Difficulty Paying for Meds: No Currently Unemployed: No Education: High School Diploma/GED Difficulty w/ Childcare or Family Care: No Living arrangements: with family Spiritual care concerns: No Meds Home Medications and Allergies Home Medications ?Medication ?Instructions ?Recorded ?Confirmed ?Type lisinopril 20 See Rx Instructions .Route 11/22/24 04/26/25 Rx mg-hydrochlorothiazide 12.5 mg .COMPLEX #180 tabs tablet metoprolol succinate 50 mg 50 mg PO DAILY #90 tabs 11/22/24 04/26/25 Rx tablet,extended release 24 hr acetaminophen 500 mg tablet 1,000 mg (2 x 500 mg) PO Q6H PRN 12/28/24 04/26/25 Rx (Tylenol Extra Strength) pain #50 tabs aspirin 81 mg tablet,delayed 81 mg PO QAM 30 days #30 tabs 04/25/25 04/26/25 Rx release atorvastatin 40 mg tablet 40 mg PO DAILY 30 days #30 tabs 04/25/25 04/26/25 Rx clopidogrel 75 mg tablet 75 mg PO QAM 30 days #30 tabs 04/25/25 04/26/25 Rx Allergies Allergy/AdvReac Type Severity Reaction Status Date / Time Penicillins Allergy Unknown Anaphylaxis Verified 04/22/25 15:45 Vital Signs Vital Signs - 24 hr 04/27/25 16:00 04/27/25 16:24 04/27/25 21:15 Temperature 98.5 F 97.8 F Pulse Rate 73 56 L Respiratory Rate 20 18 Blood Pressure 165/68 H 153/77 H Pulse Oximetry 97 99 Oxygen Delivery Room Air 04/28/25 05:14 04/28/25 08:14 04/28/25 08:15 Temperature 97.7 F Pulse Rate 73 69 Respiratory Rate 14 Blood Pressure 148/90 H 153/76 H Pulse Oximetry 100 100 Oxygen Delivery Room Air 04/28/25 08:16 Temperature Pulse Rate 69 Respiratory Rate Blood Pressure Pulse Oximetry Oxygen Delivery Exam Narrative: Alert and oriented to self. At this time he does want to talk very much. Examination head and neck shows no evidence of external trauma. No nuchal rigidity. No carotid bruit. Cranial nerves pupils were equal react to light. Visual matos 5 ocular movements are intact. There is no facial asymmetry. Tongue was in midline. Other cranial normal limits. Motor system normal power and tone in both upper and lower limbs. Deep tendon reflexes did not show any asymmetry. Sensory is grossly intact. No involuntary movements seen. Results Labs 04/28/25 05:51 04/28/25 05:51 Labs: Short CBC 04/28/25 Range/Units 05:51 WBC 8.3 (4.5-10.0) K/mm3 Hgb 15.0 (14.0-18.0) g/dL Hct 43.0 (42.0-52.0) % Plt Count 307 (150-375) k/mm3 BMP 04/28/25 05:51 Sodium 135 L Potassium 3.7 Chloride 101 Carbon Dioxide 27 BUN 16 Creatinine 0.96 Glucose 121 H Calcium 9.4 Liver Function 04/28/25 Range/Units 05:51 Total Bilirubin 0.9 (0.2-1.3) mg/dL AST 35 (17-59) U/L ALT 16 (6-50) U/L Alkaline Phosphatase 85 (38-126) U/L Albumin 4.1 (3.5-5.1) g/dL
[2025-04-28 15:00] LABS: Thyroid Stimulating Hormone Reflex 3.230 uIU/mL (0.465-4.68)
[2025-04-28] MEDS: LACOSAMIDE (*CRX) 100 MG TABLET PO (20:32)
[2025-04-28] MEDS: OLANZapine ODT DISPERTAB 5 MG PO (20:33)
[2025-04-28 22:00] VITALS: BP 124/66; PULSE 54; RESP 16; TEMP 36.5; O2SAT 99
[2025-04-29 06:00] VITALS: BP 112/66; PULSE 60; RESP 18; TEMP 36.4; O2SAT 98
[2025-04-29 06:58] LABS: Hematocrit 44.9 % (42.0-52.0); Hemoglobin 15.7 g/dL (14.0-18.0); Immature Granulocyte Percent A 0.3 % (0-0.5); Lymphocytes Absolute Auto 1.40 K/mm3 (0.9-3.2); Mean Corpuscular HGB Conc 35.0 g/dl (32-36); Mean Corpuscular Hemoglobin 31.7 pg (26-34); Mean Corpuscular Volume 90.7 fl (80-100); Nucleated Red Blood Cells Absolute Auto 0.000 K/mm3 (0.0-0.012); Nucleated Red Blood Cells Perc 0.0 % (0.0-0.2); Platelet Count Result 303 k/mm3 (150-375); Red Blood Count 4.95 M/mm3 (4.6-6.20); White Blood Count 7.7 K/mm3 (4.5-10.0)
[2025-04-29 07:27] LABS: Alanine Aminotransferase 15 U/L (6-50); Albumin Level 4.1 g/dL (3.5-5.1); Alkaline Phosphatase 77 U/L (38-126); Anion Gap 7 mmol/L (4-12); Aspartate Amino Transferase 38 U/L (17-59); Bilirubin,Total 0.9 mg/dL (0.2-1.3); Blood Urea Nitrogen 18 mg/dL (9-20); Calcium 9.5 mg/dL (8.4-10.2); Carbon Dioxide 29 mmol/L (22-30); Chloride 102 mmol/L (98-107); Estimated CRCL calculation 51 ml/min; Estimated Glomerular Filt Rate > 60; Glucose 114 mg/dL (65-110); Magnesium 1.9 mg/dL (1.6-2.3); Potassium 3.5 mmol/L (3.4-5.0); Sodium 138 mmol/L (137-145); Total Protein 6.8 g/dL (6.3-8.2)
[2025-04-29 09:10] VITALS: PULSE 56
[2025-04-29] MEDS: ATORVASTATIN 40 MG TABLET PO (09:10)
[2025-04-29] MEDS: LACOSAMIDE (*CRX) 100 MG TABLET PO (09:10)
[2025-04-29] MEDS: ASPIRIN 81 MG ENTERIC TABLET PO (09:10)
[2025-04-29] MEDS: METOPROLOL SUCCINATE EXT REL 50 MG TABCR PO (09:10)
[2025-04-29] MEDS: APIXABAN 5 MG TABLET PO (09:10)
[2025-04-29 14:00] VITALS: BP 126/66; PULSE 63; RESP 18; TEMP 36.4; O2SAT 98
--- NOTE | 2025-04-29 15:43 | PM.DS ---
DS: Admitting Diagnosis Discharge Date 04/29/2025 Admitting Diagnosis AMS, Acute cerebrovascular accident DS: Discharge Diagnosis Discharge Diagnosis (1) AMS (altered mental status): Qualifiers: Altered mental status type: delirium Qualified Code(s): R41.0 - Disorientation, unspecified Code(s): R41.82 - Altered mental status, unspecified Status: Acute (2) Agitation: Code(s): R45.1 - Restlessness and agitation Status: Acute (3) Acute cerebrovascular accident: Code(s): I63.9 - Cerebral infarction, unspecified Status: Acute (4) New onset a-fib: Code(s): I48.91 - Unspecified atrial fibrillation Status: Acute (5) Hypertension: Qualifiers: Hypertension type: essential hypertension Qualified Code(s): I10 - Essential (primary) hypertension Code(s): I10 - Essential (primary) hypertension Status: Acute DS: Summary Hospital Course Reason for hospitalization: Altered Mental Status and new onset atrial fibrillation Hospital Course: Per H&P: This is a 69-year-old male patient who is admitted to the hospital for altered mental status with possible seizure activity. He was admitted on 04/22 with acute CVA and was discharged home on 04/25. He was only home for a very short time where it was reported he smoked marijuana and then when his went to get his computer to bring it to him he went unresponsive. He was had rigid body for several minutes and found to be hypotensive upon EMS arrival. He was also very confused upon regaining consciousness. Given the rigidity, altered mental status and what sounds like postictal time frame it is suspected that patient had seizure activity. Neurology was consulted and gave instructions to order IV Keppra 1500 mg x 1 then 750 mg twice a day by oral route if possible as well as obtain EEG. Neurology will see patient at again tomorrow. Labs showed a white blood cell count of 12.9, glucose 215, potassium 3.5 and magnesium 1.8. Troponin was negative. Urinalysis with trace leukocyte esterase but no other findings to support infection. Chest x-ray unremarkable. CT scan noncontrast shows areas of chronic infarct there are scattered. CTA head neck shows new finding of soft plaque the right carotid artery but no large vessel occlusion. Patient afebrile. On my attempt to examine patient he would respond to verbal stimuli but was confused. Patient did not even get his own name correct called himself Prosper. He had no recollection of where he was or why he was in the hospital. Patient's had already gone home. HPI/ROS are thus significantly limited. During inpatient: Cardiology consulted regarding the onset atrial fibrillation. Recommend continuing metoprolol succinate 50 mg daily and continuing Eliquis 5 mg p.o. b.i.d.. Echo upon last admission was unremarkable, repeat echo showed normal left and right ventricular size and systolic function, hyperdynamic LV, along with trivial amounts of aortic, tricuspid and pulmonary regurgitation, however in normal sinus rhythm at this point. They recommend the patient following up in the outpatient setting but otherwise does not need anymore and patient work at this time. Neurology was consulted regarding possible new onset seizures. EEG was ordered which showed presence or diffuse background slowing suggestive of generalized encephalopathy however no focal or paroxysmal abnormality was noted. Although Keppra was initially ordered for new onset seizures, Neurology switched medications to lacosamide 100 mg twice daily. Neurology recommends continuing glucose might for an additional week upon discharge, with up titration up to 150 mg twice daily for 1 week after that, and a maintenance dose of 20 mg twice daily over the course of the next 2-3 weeks. He also recommends the patient following up in our office upon discharge. Psychiatry consulted regarding altered mental status/agitation. A code purple was called on 04/28 due to aggressive behavior and attempting to leave the unit. Patient was redirected safely back to room and was given 1 time dose of Ativan. Psychology recommended continuing supportive measures and starting patient on Zyprexa 5 mg ODT HS during admission with a p.r.n. dose of 2.5 mg b.i.d.. At the time of exam with Psychiatry, the patient denied any current symptoms of depression/anxiety/hallucinations and did not express any concerns about his on physical/mental well-being. As the patient's onset of confusion appears to have started approximately 1 week before prior hospital admission, the patient could likely benefit from a neuro psychological evaluation in the outpatient setting after discharge. On 04/29, the patient was otherwise hemodynamically stable and able to be discharged from a medical standpoint. He has been given the information for psychiatry follow-up appointment, as well as instructed to follow-up with his PCP regarding new onset atrial fibrillation. He has been given a prescription for lacosamide and strict instructions on up titration of dose for the next several weeks. He has also been instructed to follow-up with neurology as soon as he can. Plan for discharge home with standing ambulatory order of outpatient physical therapy. Status at Discharge Functional status at discharge: independent ambulation Overall status at discharge: patient is back to baseline Time Spent with Patient Time attestation: Total time spent providing and/or coordinating discharge services: 52 Exam Narrative: General: NAD, disheveled Eyes: EOMI ENT: neck supple Cardiovascular: Regular rate and rhythm Respiratory: Clear to auscultation, respirations even and unlabored on RA Gastrointestinal: Soft, non tender Genitourinary: no suprapubic tenderness Musculoskeletal: No edema Skin: warm, dry Neuro: Alert and oriented to self, year. Otherwise confused. Cranial nerves II-XII intact. Face symmetric. Speech clear. Strength 5/5 in BUEs/BLEs. Psych: Mood appropriate DS: Data Data Completed and Pending Labs on day of discharge: Labs from last 24 hours 04/29/25 05:59 WBC 7.7 RBC 4.95 Hgb 15.7 Hct 44.9 MCV 90.7 MCH 31.7 MCHC 35.0 RDW 13.0 Plt Count 303 MPV 9.5 Immature Gran % (Auto) 0.3 Neut % (Auto) 65.3 Lymph % (Auto) 18.3 [place] % (Auto) 10.6 H Eos % (Auto) 4.6 H Baso % (Auto) 0.9 Lymph # (Auto) 1.40 [place] # (Auto) 0.8 H Eos # (Auto) 0.4 H Baso # (Auto) 0.1 Abs Immat Gran (auto) 0.02 Absolute Neuts (auto) 5.0 Absolute Nucleated RBC 0.000 Nucleated RBC % 0.0 Sodium 138 Potassium 3.5 Chloride 102 Carbon Dioxide 29 Anion Gap 7 BUN 18 Creatinine 1.11 Estim Creat Clear Calc 51 Estimated GFR > 60 Glucose 114 H Calcium 9.5 Magnesium 1.9 Total Bilirubin 0.9 AST 38 ALT 15 Alkaline Phosphatase 77 Total Protein 6.8 Albumin 4.1 Discharge Plan Discharge Attending physician on discharge: Arnol Negro Consulting providers: Ev Yang; Augusto Guillermo; Steve Dubose; Gaurang Vaca; Melo Rivera; Chase Choudhury Discharging Clinician: Augusto Guillermo Anticipated Discharge Date/Time: 04/29/25 13:49 Patient Disposition: Home Activity: no straining Diet: heart healthy Discharge Instructions: Discharge disposition: Home. We will be attaching an order for Outpatient physical rehab therapy. This can be completed at a location of your choosing. Take medications as prescribed. You will be prescribed Lacosamide 100mg to be taken twice daily for 1 week, then start taking 150mg twice daily for one week, then 200mg after that. Continue taking Metoprolol 50mg daily and Apixaban 5mg twice daily. Monitor blood pressures Take caution while standing, rising, or moving Change positions slowly taking a break between each position change If you standing feel dizzy sit back down and take a break Encouraged to continue with yearly vaccinations Return to the emergency department if he developed sudden shortness of breath, chest pain, nausea, vomiting, upset stomach or intractable diarrhea Return to the emergency department if you develop fever greater than 101.5 Follow-up with the primary care physician within 1-2 weeks Follow up with Neurology in 6-8 weeks. Follow up with Psychiatry to assess need for continued Olanzapine use. Thank you for [facility] for your healthcare needs Patient Instructions: Antibiotic Form, Apixaban (By mouth), Safe Use of Anticoagulants (DC) Patient Language: Andorran Stand Alone Forms: General Discharge Information Follow-up/Referrals: Armando Becerra, BARK PRESS OPERATOR [Advanced Practice Nurse] - ([facility] walk in clinic for psychiatric follow up. no apt needed. ) Zia Francisco MD [Primary Care Provider] - Steve Dubose MD [Physician] - Discharge Medications: New lisinopril 20 mg Tablet 40 mg PO QAM Qty: 30 0RF Eliquis 5 mg Tablet 5 mg PO Q12HR Qty: 60 0RF lacosamide 100 mg tablet 100 mg PO Q12H Qty: 14 0RF Rx Instructions: Take for week one 7 days total lacosamide 150 mg tablet 150 mg PO Q12H Qty: 14 0RF Rx Instructions: Take week 2 for 2 days lacosamide 200 mg tablet 200 mg PO Q12H Qty: 60 0RF Rx Instructions: Start on day 15 after completing your prescription for 150MG twice a day and continue daily Continued lisinopril-hydrochlorothiazide 20-12.5 mg tablet See Rx Instructions .ROUTE .COMPLEX Qty: 180 2RF Dose Instruction: Take 2 tablets by mouth once daily Rx Instructions: Take 2 tablets by mouth once daily metoprolol succinate 50 mg tablet extended release 24 hr 50 mg PO DAILY Qty: 90 2RF atorvastatin 40 mg Tablet 40 mg PO DAILY 30 Days Qty: 30 1RF clopidogrel 75 mg Tablet 75 mg PO QAM 30 Days Qty: 30 1RF aspirin 81 mg Tablet,Delayed Release (Dr/Ec) 81 mg PO QAM 30 Days Qty: 30 1RF acetaminophen [Tylenol Extra Strength] 500 mg tablet 1,000 mg PO Q6H PRN (Reason: pain) Qty: 50 0RF Other Ambulatory Orders: PT Outpatient Eval and Treat (ONCE) Timeframe: [id number] Location: Determined by Patient Ordered By: Augusto Guillermo Date of admission: 04/26/25 09:39 Primary Care Provider: Zia Francisco Admitting Provider: Jose Antonio Mena Attending physician on admission: Jose Antonio Mena Condition: Stable Quality VTE Prophylaxis VTE prophylaxis: pharmacologic ordered
== END 2025-04-29 16:05 | disposition home or self-care (01) | DRG 57 ==
LOC: ANHED 19:52 → ANHIMU 22:41 → ANH3MEDSUR 04-28 09:31 → ANHIMU 05-02 08:51
PROVIDERS: Emergency Medicine; Nurse Practitioner; Admitting Provider Internal Medicine; Emergency Provider Physician Assistant; PCP Emergency Medicine; Visit Provider Physician Assistant
DX: I69.398 Other sequelae of cerebral infarction (principal); R41.82 Altered mental status, unspecified; I48.91 Unspecified atrial fibrillation; I10 Essential (primary) hypertension; E78.5 Hyperlipidemia, unspecified; R45.1 Restlessness and agitation; Z96.653 Presence of artificial knee joint, bilateral; Z79.02 Long term (current) use of antithrombotics/antiplatelets; Z87.891 Personal history of nicotine dependence; Z79.82 Long term (current) use of aspirin
CPT/HCPCS: 36415; 53060; 70450; 70496; 70498; 71046; 80053; 81001; 83605; 83735; 84443; 84484; 85025; 93005; 93306; 95816; 96361; 96365; 96366; 96367; 96375; 96376; 97110; 97116; 97161; 97530; 97535; A9270; G0378; J1953; J2060; J3475; J3480; J7030; J7040; Q9967

== ENCOUNTER 2025-05-09 09:53 | Inpatient (IN) | payer MEDICARE, SELFPAY ==
--- OUTSIDE RECORDS SUMMARY | 2010-06-27 19:00 | XMS_ITS | Continuity of Care Document ---
Author Organization [facility] Address [address] [place] [address] [place] [address] Phone Care Team Providers Care Interior Design Director Name Role Phone Poncho Amin Unavailable Unavailable [...] Diagnoses Date Provider Providers Copied on Encounter [facility], [address] [place] [address] [address], [place], [place], [address], [place] tel:[phone] [facility] No Information 201 0 Eloisa Isaac. [address] [facility] [address], [place], [address], [place]. tel:[phone] Referring Provider: Derick Bush [facility] [address], [place], [address]. tel:[phone] [facility], [address] [place] [address] [address], [place], [place], [address], [place] tel:[phone] [facility] No Information Oct-0 5-201 0 Eloisa Isaac. [address] [facility] , [address], [place], [facility], . tel:[phone] Referring Provider: Poncho Wren, [address] [facility] [address], [place], [facility]. tel:[phone] Office/outpat ient Visit, [facility], [address] [place] [address] [address], [place], [place], [address], [place] tel:[phone] [facility] No Information Aug-2 3-201 0 Eloisa Isaac. [address] [facility] [address], [address], [place], [facility], [place]. tel:[phone] Office/outpat ient Visit, [facility], [address] [place] [address] [address], [place], [place], [address], [place] tel:[phone] [facility] No Information January-2 0-200 9 Eloisa Isaac. [address] [place], [place] [address]ate Wilber Samano, [address], [place], [facility], [place]. tel:[phone] Office/outpat ient Visit, [facility], [address] [place] [address] [address], [place], [place], [address], [place] tel:[phone] [facility] No Information Brett-0 7-200 8 Eloisa Isaac. [address] [facility] [address], [address], [place], [facility], [place]. tel:[phone] [facility], [address] [place] [address] [address], [place], [place], [address], [place] tel:[phone] [facility] No Information Charles-2 3-200 8 Eloisa Isaac. [address] [facility] [address], [address], [place], [facility], [place]. tel:[phone] [facility], [address] [place] [address] [address], [place], [place], [address], tel:[phone] [facility] No Information 8 Eloisa Isaac. [facility] , [address], [place], [facility], . tel:[phone] [facility], [address] [place] [address] [address], [place], [place], [address], tel:[phone] [facility] No Information 8 Eloisa Isaac. [address] [place], [place] [address]ate Wilber Samano, [address], [place], [facility], . tel:[phone] Office/outpat ient Visit, [facility], [address] [place] [address] [address], [place], [place], [address], tel:[phone] [facility] No Information 200 7 Eloisa Isaac. [address] [place], [place] [address]ate Wilber Samano, [address], [place], [facility], . tel:[phone] Referring Provider: Poncho Wren, [address] [place], [place] [address]ate [address], [place], [facility]. tel:[phone] [facility], [address] [place] [address] [address], [place], [place], [address], tel:[phone] [facility] No Information 0 200 7 Cortez OD Brad. [address] [place], [place] [address]ate Wilber Samano, [address], [place], [facility], . tel:[phone] Family History Family Member Type Diagnosis Age At Onset No Information Payers Payer name Insurance type Covered constitution party ID Authoriza tion(s) [place] [id number] Social History Type Description Quantity Date Captured [...]
--- OUTSIDE RECORDS SUMMARY | 2010-06-27 19:00 | XMS_ITS | Continuity of Care Document ---
Author Organization [facility] Address [address] [place] [address] [place] [address] Phone Care Team Providers Care Nickel Operator Name Role Phone Poncho Amin Unavailable Unavailable [...] Diagnoses Date Provider Providers Copied on Encounter [facility], [address] [place] [address] [address], [place], [place], [id number], [place] tel:[phone] [facility] No Information 201 0 Eloisa Isaac. [address] [facility] [address], [place], [address], [place]. tel:[phone] Referring Provider: Derick Bush [facility] [address], [place], [address]. tel:[phone] [facility], [address] [place] [address] [address], [place], [place], [id number], [place] tel:[phone] [facility] No Information Oct-0 5-201 0 Eloisa Isaac. [address] [facility] , [address], [place], [place], [facility], . tel:[phone] Referring Provider: Poncho Wren, [address] [facility] [address], [place], [place], [facility]. tel:[phone] Office/outpat ient Visit, [facility], [address] [place] [address] [address], [place], [place], [id number], [place] tel:[phone] [facility] No Information Aug-2 3-201 0 Eloisa Isaac. [address] [facility] [address], [address], [place], [place], [facility], [place]. tel:[phone] Office/outpat ient Visit, [facility], [address] [place] [address] [address], [place], [place], [id number], [place] tel:[phone] [facility] No Information January-2 0-200 9 Eloisa Isaac. [address] [place], [place] [address]ate [address], [address], [place], [place], [facility], [place]. tel:[phone] Office/outpat ient Visit, [facility], [id number] [place] [address] [address], [place], [place], [id number], [place] tel:[phone] [facility] No Information Brett-0 7-200 8 Eloisa Isaac. [address] [facility] [address], [address], [place], [facility], [place]. tel:[phone] [facility], [address] [place] [address] [address], [place], [place], [id number], [place] tel:[phone] [facility] No Information Charles-2 3-200 8 Eloisa Isaac. [address] [facility] [address], [address], [place], [facility], [place]. tel:[phone] [facility], [address] [place] [address] [address], [place], [place], [id number], tel:[phone] [facility] No Information 8 Eloisa Isaac. [facility] , [address], [place], [facility], . tel:[phone] [facility], [id number] [place] [address] [address], [place], [place], [id number], tel:[phone] [facility] No Information 8 Eloisa Isaac. [address] [place], [place] [address]ate [address], [address], [place], [facility], . tel:[phone] Office/outpat ient Visit, [facility], [id number] [place] [address] [address], [place], [place], [id number], tel:[phone] [facility] No Information 200 7 Eloisa Isaac. [address] [place], [place] [address]ate [address], [address], [place], [facility], . tel:[phone] Referring Provider: Poncho Wren, [address] [place], [place] [address]ate [address], [place], [place], [facility]. tel:[phone] [facility], [id number] [place] [address] [address], [place], [place], [id number], tel:[phone] [facility] No Information 0 200 7 Cortez OD Brad. [address] [place], [place] [address]ate [address], [address], [place], [facility], . tel:[phone] Family History Family Member Type Diagnosis Age At Onset No Information Payers Payer name Insurance type Covered constitution party ID Authoriza tion(s) [place] [id number] Social History Type Description Quantity Date Captured [...]
[2025-05-09] VITALS (28 sets, daily range): BP systolic 97–169; BP diastolic 48–98; PULSE 68–169; RESP 15–37; TEMP 36.6–38.3; O2SAT 96–100; BMI 24.3
--- NOTE | ~2025-05-09 | CT_ITS ---
EXAM: CT brain wo con - 05/19/2025 12:00 CDT History: 69 years old Male with rapid respons ams loc COMPARISON: 05/09/2025 PROCEDURE: CT of the head without contrast. Axial, sagittal and coronal reformatted planes were evaluated. Automatic exposure control was used for this study. FINDINGS: BRAIN PARENCHYMA: No acute hemorrhage. No mass effect or herniation. Julio-white matter differentiation is maintained. Mild chronic volume loss. Scattered hypodensities in subcortical and periventricular white matter, likely representing chronic microvascular ischemic changes in this age group. Atherosc lerotic calcification of the intracranial vessels is noted. 3 lacunar infarcts in the right basal ganglia and 2 lacunar infarcts in the left basal ganglia, unchanged. VENTRICLES/ EXTRA-AXIAL SPACES: No hydrocephalus or extra-axial fluid collection. EXTRACRANIAL STRUCTURES: No calvarial fracture. IMPRESSION: 1. No significant interval change. Bilateral lacunar infarcts, as detailed above. 2. Other chronic findings including parenchymal atrophy and chronic small vessel ischemic changes. Reviewed, dictated and finalized at location N. IMPRESSION: 1. No significant interval change. Bilateral lacunar infarcts, as detailed abo ve. 2. Other chronic findings including parenchymal atrophy and chronic small vess el ischemic changes.
--- NOTE | ~2025-05-09 | XR_ITS ---
EXAM/PROCEDURE: XR chest 1V portable - 05/19/2025 11:45 CDT HISTORY: 69 years old Male with rapid response TECHNIQUE: AP view(s) of the chest. COMPARISON: None available. FINDINGS: LUNGS/ PLEURA: No focal consolidation. No appreciable pneumothorax or large pleural effusion. HEART/ MEDIASTINUM: Heart appears normal in size. BONES: No acute osseous abnormality. OTHER: Visualized upper abdomen is unremarkable. IMPRESSION: No acute process. Reviewed, dictated and finalized at location N. IMPRESSION: No acute process.
--- NOTE | ~2025-05-09 | CT_ITS ---
EXAMINATION: CT brain wo con DATE: 05/09/2025 12:01 INDICATION: Altered mental status TECHNIQUE: Computed tomography (CT) of the head was performed without intravenous contrast. Sagittal and coronal reconstructions were performed. The mA was adjusted according to patient size. Iterative reconstruction technique was employed. The dose-length product was 681.00 mGy-cm. COMPARISON: head CT and CT angiogram dated 04/25/25 FINDINGS: Again seen are old lacunar infarcts at the right caudate basal ganglia and in the dobbins radiata of the right frontal and parietal and left frontal lobes. No acute intracranial hemorrhage, acute infarction or abnormal extra axial fluid collection. There is extensive scattered white matter hypoattenuation consistent with chronic small vessel ischemic disease. Symmetric prominence of the sulci , ventricles and subarachnoid spaces overlying the convexities consistent with mild to moderate age-appropriate diffuse cerebral volume loss. No mass/mass effect. Changes of bilateral intraocular lens replacement. The orbits, paranasal sinuses and right mastoid air cells are normal. Small left mastoid effusion. IMPRESSION: 1. Few old lacunar infarcts in the right basal ganglia and in the coronal radiata of the bilateral frontal and right parietal lobes. No acute intracranial process. 2. Age-related changes including mild to moderate diffuse volume loss and extensive scattered white matter hypoattenuation consistent with chronic small vessel ischemic disease. Reviewed, dictated and finalized at location A. IMPRESSION: 1. Few old lacunar infarcts in the right basal ganglia and in the coronal radia ta of the bilateral frontal and right parietal lobes. No acute intracranial pro cess. 2. Age-related changes including mild to moderate diffuse volume loss and exten sive scattered white matter hypoattenuation consistent with chronic small vesse l ischemic disease.
--- NOTE | ~2025-05-09 | CT_ITS ---
EXAMINATION: CT chest abdomen pelvis w con DATE: 05/09/2025 12:02 INDICATION: Fever. Leukocytosis. Nausea/vomiting. Altered mental status. TECHNIQUE: Computed tomography (CT) of the chest, abdomen, and pelvis was performed with 100 mL Omnipaque-350 intravenous contrast. Automated exposure control and iterative reconstruction technique were employed. The dose-length product was 676.39 mGy-cm. COMPARISON: CT abdomen and pelvis dated 12/28/2024 FINDINGS: CHEST CT: Lungs are clear with no pneumonia, pulmonary edema, pleural effusion or pneumothorax. Calcified left apical nodule along with calcite left hilar lymph nodes consistent with old granulomatous disease. Heart size is normal. Atherosclerotic coronary artery calcification. Thoracic aorta is normal in caliber with no dissection. No pathologically enlarged thoracic lymphadenopathy. Mild thoracic dextrocurvature with severe spondylosis. Mildly displaced now chronic but still ununited fracture of the posterior left 11th rib. ABDOMEN/PELVIS CT: Several scattered subcentimeter hepatic cysts the largest measuring up to 9 mm. Gallbladder, spleen, pancreas, bilateral adrenal glands and kidneys are normal. Bowels including the appendix are normal. Bladder is partially decompressed. Prostatomegaly measuring up to 5.3 x 4.8 cm. There is stranding about the prostate and the bilateral seminal vesicles which raises concern for prostatitis. No free intraperitoneal gas or fluid. No pathologically enlarged abdominal or pelvic lymphadenopathy. There is calcified atherosclerosis of the aorta and many of the other arteries. Moderate to severe lumbar spondylosis and grade 1 anterolisthesis L4 on L5. Heterotopic ossicles along side the right anterior iliac spine which demonstrates an abnormal contour suggesting sequela chronic avulsion injury. IMPRESSION: 1. Prostatomegaly with surrounding from trace stranding also extending around the bilateral seminal vesicles which raises concern for prostatitis. 2. No acute cardiopulmonary disease or other acute intra-abdominal/pelvic process. Reviewed, dictated and finalized at location A. IMPRESSION: 1. Prostatomegaly with surrounding from trace stranding also extending around t he bilateral seminal vesicles which raises concern for prostatitis. 2. No acute cardiopulmonary disease or other acute intra-abdominal/pelvic proce ss.
--- NOTE | 2025-05-09 10:06 | ECG_ITS ---
Test Date: 2025-05-09 10:08:48 Measurements Intervals [place] Rate: 169 P: 0 SD: 0 QRS: 30 QRSD: 89 T: -3 QT: 294 QTc: 494 Interpretive Statements SUPRAVENTRICULAR TACHYCARDIA DELAYED PRECORDIAL R/S TRANSITION ST DEPRESSION IN DIFFUSE LEADS, CONSIDER SUBENDOCARDIAL INJURY OR RATE RELATED ABNORMAL ECG Compared to ECG 04/25/2025 19:56:17 ST (T wave) deviation now present POSSIBLE ISCHEMIA NOW PRESENT Atrial fibrillation no longer present Electronically Signed On 05-09-2025 10:33:32 CDT by Kirill Portillo D.O.
--- NOTE | 2025-05-09 10:11 | ECG_ITS ---
Test Date: 2025-05-09 10:11:45 Measurements Intervals [place] Rate: 166 P: 181 [place]: 89 QRS: 12 QRSD: 88 T: 6 QT: 297 QTc: 494 Interpretive Statements SUPRAVENTRICULAR TACHYCARDIA, CONSIDER ATRIAL FLUTTER WITH RAPID VENTRICULAR RESPONSE DELAYED PRECORDIAL R/S TRANSITION ST DEPRESSION IN DIFFUSE LEADS, CONSIDER SUBENDOCARDIAL INJURY BASELINE ARTIFACT- I, II, III, AVR, AVL, AVF, V1-V2 ABNORMAL ECG Compared to ECG 05/09/2025 10:08:48 NO SIGNIFICANT CHANGE Electronically Signed On 05-09-2025 10:34:57 CDT by Kirill Portillo D.O.
[2025-05-09] MEDS: METOPROLOL TARTRATE INJ 5 MG/5 ML VIAL IV PUSH (10:15)
[2025-05-09] MEDS: ONDANSETRON INJ 4 MG/2 ML VIAL IV PUSH (10:28)
[2025-05-09] MEDS: SODIUM CHLORIDE 0.9% IV 1,000 ML 999 ML (10:29)
[2025-05-09 10:53] LABS: Hematocrit 34.3 % (42.0-52.0); Hemoglobin 12.3 g/dL (14.0-18.0); Immature Granulocyte Percent A 0.6 % (0-0.5); Lymphocytes Absolute Auto 0.24 K/mm3 (0.9-3.2); Mean Corpuscular HGB Conc 35.9 g/dl (32-36); Mean Corpuscular Hemoglobin 31.8 pg (26-34); Mean Corpuscular Volume 88.6 fl (80-100); Nucleated Red Blood Cells Absolute Auto 0.000 K/mm3 (0.0-0.012); Nucleated Red Blood Cells Perc 0.0 % (0.0-0.2); Platelet Count Result 317 k/mm3 (150-375); Red Blood Count 3.87 M/mm3 (4.6-6.20); White Blood Count 21.2 K/mm3 (4.5-10.0)
[2025-05-09] MEDS: ACETAMINOPHEN 500 MG TABLET 1000 MG PO (10:56)
[2025-05-09] MEDS: METOPROLOL SUCCINATE EXT REL 50 MG TABCR PO (10:58)
[2025-05-09 11:03] LABS: INR 1.3; Prothrombin Time 16.1 Seconds (11.1-14.7)
--- NOTE | 2025-05-09 11:03 | PC.NURSE ---
Unable to swallow Tylenol. Order received for tylenol suppository
[2025-05-09 11:04] LABS: Partial Thromboplastin Time 28.3 Seconds (22.3-36.8)
[2025-05-09 11:05] LABS: Alanine Aminotransferase 22 U/L (6-50); Albumin Level 4.2 g/dL (3.5-5.1); Alkaline Phosphatase 91 U/L (38-126); Anion Gap 9 mmol/L (4-12); Aspartate Amino Transferase 30 U/L (17-59); Bilirubin,Total 1.3 mg/dL (0.2-1.3); Blood Urea Nitrogen 16 mg/dL (9-20); Calcium 9.0 mg/dL (8.4-10.2); Carbon Dioxide 23 mmol/L (22-30); Chloride 100 mmol/L (98-107); Estimated Glomerular Filt Rate > 60; Glucose 184 mg/dL (65-110); Potassium 3.5 mmol/L (3.4-5.0); Sodium 132 mmol/L (137-145); Total Protein 6.7 g/dL (6.3-8.2)
--- OUTSIDE RECORDS SUMMARY | 2025-05-09 11:06 | XMS_ITS | Encounter Summary ---
Author Organization [facility] Address 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
--- OUTSIDE RECORDS SUMMARY | 2025-05-09 11:06 | XMS_ITS | Encounter Summary ---
Author Organization [facility] Address 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 Gender Identity Not on file Sexual [...] CDT) HEMATOCRIT 28.8(L) 40.0 - 48.0 % [facility] HEMOGLOBIN 9.3(L) 13.6 - 16.5 g/dL [facility] Blood specimen (specimen) 01/10/2008 5:54 AM CDT 01/10/2008 7:00 AM CDT us Govind Sotelo MD HEMATOLOGY ORDERABLES Final Result [facility] [address] [place] [address] * HEMOGLOBIN AND HEMATOCRIT (12/25/2007 10:57 AM CDT) HEMATOCRIT 46.3 40.0 - 48.0 % [facility] HEMOGLOBIN 15.6 13.6 - 16.5 g/dL [facility] Blood specimen (specimen) 12/25/2007 10:57 AM CDT 12/25/2007 11:58 AM CDT us Govind Sotelo MD HEMATOLOGY ORDERABLES Final Result [facility] [address] [place] [address] * (ABNORMAL) BASIC METABOLIC PANEL (12/25/2007 10:57 AM CDT) CHLORIDE 100 96 - 108 mmol/L [facility] GLUCOSE 124(H) 65 - 99 mg/dL [facility] SODIUM 140 135 - 145 mmol/L [facility] CALCIUM 9.6 8.4 - 10.2 mg/dL [facility] CO2 28 22 - 30 mmol/L [facility] CREATININE 0.86 0.67 - 1.17 mg/dL [facility] POTASSIUM 3.9 3.5 - 4.9 mmol/L [facility] BUN 10 6 - 20 mg/dL [facility] GFR, >60 >=60 mL/min/1. 7 sq meter [facility] GFR >60 >=60 mL/min/1. 7 sq meter [facility] Comment: Estimated GFR rate interpretative information for both Americans and non- Americans is available on the [facility] Intranet at: [email or web address] Select: Lab Policies and Procedures Select: Reference Ranges - GFR Blood specimen (specimen) 12/25/2007 10:57 AM CDT 12/25/2007 11:58 AM CDT us Govind Sotelo MD CHEMISTRY ORDERABLES Edited [facility] [address] [place] [address] documented in this encounter Visit Diagnoses Diagnosis Osteoarthrosis, unspecified whether generalized or localized, lower leg documented in this encounter
--- OUTSIDE RECORDS SUMMARY | 2025-05-09 11:06 | XMS_ITS | Clinical Summary ---
Author Organization [facility] Address [address] 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
--- OUTSIDE RECORDS SUMMARY | 2025-05-09 11:06 | XMS_ITS | Encounter Summary ---
Author Organization [facility] Address 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
--- OUTSIDE RECORDS SUMMARY | 2025-05-09 11:06 | XMS_ITS | Clinical Summary ---
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 Name Role Phone Provider, None Primary Care Provider Unavailabl e Allergies Active Allergy Reactions Criticality Noted Date Comments Penicillins Other (see Comments) 04/18/2025 Encounters Date Type Department Care Team Description 04/18/2025 5:25 PM CDT - 04/18/2025 9:53 PM CDT [facility] [address] [place] [phone] Leo Navarrete DO Altered mental status, [...] 1.003 - 1.030 04/18/2025 7:41 PM CDT [facility] URINE PH 5.5 5.0 - 9.0 04/18/2025 7:41 PM CDT [facility] WBC ESTERASE Negative Negative 04/18/2025 7:41 PM CDT [facility] NITRITE Negative Negative 04/18/2025 7:41 PM CDT [facility] PROTEIN, RANDOM URINE Trace(A) Negative 04/18/2025 7:41 PM CDT [facility] URINE GLUCOSE, QUAL Negative Negative 04/18/2025 7:41 PM CDT [facility] URINE KETONES Trace(A) Negative 04/18/2025 7:41 PM CDT [facility] UROBILINOGEN 0.2 0.2 , 1.0 , Normal mg/dL 04/18/2025 7:41 PM CDT [facility] URINE BLOOD 2+(A) Negative emerson/ul 04/18/2025 7:41 PM CDT [facility] URINALYSIS COLOR Dark Yellow 04/18/2025 7:41 PM CDT [facility] URINALYSIS CLARITY Clear 04/18/2025 7:41 PM CDT [facility] WBC (Urine) 21-50(A) Negative, 0-5 /hpf 04/18/2025 7:41 PM CDT [facility] URINE RBC'S 3-5(A) Negative, 0-2 /hpf 04/18/2025 7:41 PM CDT [facility] EPITHELIAL CELLS Occasional /lpf 04/18/2025 7:41 PM CDT [facility] BACTERIA, URINE Few(A) Negative /hpf 04/18/2025 7:41 PM CDT [facility] URINE MUCOUS Few 04/18/2025 7:41 PM CDT [facility] Urine URINE SPECIMEN / Unknown Non-Phlebotomy Collection / Unknown 04/18/2025 7:03 PM CDT 04/18/2025 7:09 PM CDT Leo Navarrete DO URINE ORDERABLES Final R esult [facility] [address] [place] [phone], * (ABNORMAL) Urine Drug Screen (04/18/2025 7:03 PM CDT) UR AMPHETAMINE NON DETECTED NON DETECTED 04/18/2025 7:23 PM CDT [facility] Comment: FOR MEDICAL USE ONLY. CUTOFF CONCENTRATION FOR DETECTED RESULT: AMPHETAMINE: 500 NG/ML UR BARBITURATE NON DETECTED NON DETECTED 04/18/2025 7:23 PM CDT [facility] Comment: FOR MEDICAL USE ONLY. CUTOFF CONCENTRATION FOR DETECTED RESULT: BARBITUATES: 200 NG/ML UR BENZODIAZEPINES NON DETECTED NON DETECTED 04/18/2025 7:23 PM CDT [facility] Comment: FOR MEDICAL USE ONLY. CUTOFF CONCENTRATION FOR DETECTED RESULT: BENZODIAZAPINE: 200 NG/ML UR COCAINE METABOLITE NON DETECTED NON DETECTED 04/18/2025 7:23 PM CDT [facility] Comment: FOR MEDICAL USE ONLY. CUTOFF CONCENTRATION FOR DETECTED RESULT: COCAINE: 150 NG/ML UR OPIATES NON DETECTED NON DETECTED 04/18/2025 7:23 PM CDT [facility] Comment: FOR MEDICAL USE ONLY. CUTOFF CONCENTRATION FOR DETECTED RESULT: OPIATES: 300 NG/ML UR PHENCYCLIDINE NON DETECTED NON DETECTED 04/18/2025 7:23 PM CDT [facility] Comment: FOR MEDICAL USE ONLY. CUTOFF CONCENTRATION FOR DETECTED RESULT: PCP: 25 NG/ML UR CANNABINOID DETECTED(A) NON DETECTED 04/18/2025 7:23 PM CDT [facility] Comment: FOR MEDICAL USE ONLY. CUTOFF CONCENTRATION FOR DETECTED RESULT: THC (MARIJUANA): 50 NG/ML Urine Non-Phlebotomy Collection / Unknown 04/18/2025 7:03 PM CDT 04/18/2025 7:09 PM CDT Leo Navarrete DO URINE ORDERABLES Final R esult [facility] [address] [place] [phone], * XR CHEST SINGLE VIEW PORTABLE (04/18/2025 6:34 PM CDT) Anatomical Region Laterality Modality Chest N/A Digital Radiogra phy 04/18/2025 6:34 PM CDT Impressions 04/19/2025 8:32 AM CDT IMPRESSION: No radiographic evidence of acute cardiopulmonary disease. Narrative 04/19/2025 8:32 AM CDT DICTATING PHYSICIAN: Home Vee M.D. - [facility] EXAMINATION: Chest x-ray, 1 view. [...] 04/19/2025 DICTATING PHYSICIAN: Home Vee M.D. - [facility] EXAMINATION: Chest x-ray, 1 view. CLINICAL [...] of acute cardiopulmonary disease. Leo Navarrete DO [facility] ORDERABLE S [...] related to communication were provided by of [facility]'s after-hours service, as documented in the medical [...] A Negative Negative 04/18/2025 7:25 PM CDT [facility] FLU B Negative Negative 04/18/2025 7:25 PM CDT [facility] RESP SYNC VIRUS Negative Negative, Invalid 04/18/2025 7:25 PM CDT [facility] SARSCOV2 NOT DETECTED (Reference Range for this test is Not Detected) 04/18/2025 7:25 PM CDT [facility] Comment:This test was perfor med by a Reverse Manager Of Customer Billing PCR Method. Nasopharyngeal NASOPHARYNGEAL SWAB / Unknown Non-Phlebotomy Collection / Unknown 04/18/2025 6:15 PM CDT 04/18/2025 6:21 PM CDT us Leo Navarrete DO MICROBIOLOGY - GENERAL O RDERABLES Final Result Performing Organization Address [facility]/ZIP Co de Phone Number [facility] [address] [place] [address], * Julio Top Tube (04/18/2025 6:15 PM CDT) Blood Venous Catheter (IV) / Unknown 04/18/2025 6:15 PM CDT 04/18/2025 6:19 PM CDT us Leo Navarrete DO CHEMISTRY ORDERABLES Fin al Result Performing Organization Address [facility]/ZIP Co de Phone Number [facility] [address] [place] [address], * Gold Top Tube (04/18/2025 6:15 PM CDT) Blood Venous Catheter (IV) / Unknown 04/18/2025 6:15 PM CDT 04/18/2025 6:23 PM CDT Leo Navarrete DO CHEMISTRY ORDERABLES Fin al Result Performing Organization Address [facility]/ZIP Co de Phone Number [facility] [address] [place] [address], * Blue Top Tube (04/18/2025 6:15 PM CDT) Blood Venous Catheter (IV) / Unknown 04/18/2025 6:15 PM CDT 04/18/2025 6:23 PM CDT us Leo Navarrete DO HEMATOLOGY ORDERABLES Fi nal Result Performing Organization Address [facility] Co de Phone Number [facility] [address] [place] [address], * (ABNORMAL) CBC with Auto Differential (04/18/2025 6:15 PM CDT) WBC 8.90 4.00 - 12.00 10(3)/mcL 04/18/2025 6:35 PM CDT [facility] RBC 4.96 4.40 - 5.80 10(6)/mcL 04/18/2025 6:35 PM CDT [facility] HEMOGLOBIN (HGB) 15.7 13.0 - 16.5 g/dL 04/18/2025 6:35 PM CDT [facility] HEMATOCRIT (HCT) 44.3 38.0 - 50.0 % 04/18/2025 6:35 PM CDT [facility] MCV 89.3 82.0 - 96.0 fL 04/18/2025 6:35 PM CDT [facility] MCH 31.7 26.0 - 32.0 pg 04/18/2025 6:35 PM CDT [facility] MCHC 35.4 31.0 - 36.0 g/dL 04/18/2025 6:35 PM CDT [facility] PLATELET COUNT 282 140 - 440 10(3)/mcL 04/18/2025 6:35 PM CDT [facility] RDW 13.2 11.8 - 15.5 % 04/18/2025 6:35 PM CDT [facility] MPV 9.5 8.0 - 12.6 fL 04/18/2025 6:35 PM CDT [facility] NEUTROPHILS 74.3(H) 40.0 - 68.0 % 04/18/2025 6:35 PM CDT [facility] LYMPHOCYTES 13.5(L) 19.0 - 49.0 % 04/18/2025 6:35 PM CDT [facility] MONOCYTES 8.7 3.0 - 13.0 % 04/18/2025 6:35 PM CDT [facility] EOSINOPHILS 2.5 0.0 - 8.0 % 04/18/2025 6:35 PM CDT [facility] BASOPHILS 0.8 0.0 - 1.0 % 04/18/2025 6:35 PM CDT [facility] IMMATURE GRANULOCYTE 0.2 0.0 - 0.4 % 04/18/2025 6:35 PM CDT [facility] Comment:Immature Granulocyte s includes Metamyelocytes, Myelocytes, and Promyelocytes. ABSOLUTE NEUTROPHILS 6.62(H) 1.40 - 5.30 10(3)/mcL 04/18/2025 6:35 PM CDT [facility] ABSOLUTE LYMPHOCYTES 1.20 0.90 - 3.30 10(3)/mcL 04/18/2025 6:35 PM CDT [facility] ABSOLUTE MONOCYTES 0.77 0.10 - 0.90 10(3)/mcL 04/18/2025 6:35 PM CDT [facility] ABSOLUTE EOSINOPHIL 0.22 0.00 - 0.50 10(3)/mcL 04/18/2025 6:35 PM CDT [facility] ABSOLUTE BASOPHILS 0.07 0.00 - 0.10 10(3)/mcL 04/18/2025 6:35 PM CDT [facility] ABSOLUTE IMMATURE GRANULOCYTE 0.02 0.00 - 0.03 10 (3) mcL. 04/18/2025 6:35 PM CDT [facility] NRBC PER 100 WBC 0 04/18/20 6:35 PM CDT [facility] Blood Venous Catheter (IV) / Unknown 04/18/2025 6:15 PM CDT 04/18/2025 6:23 PM CDT us Leo Navarrete DO HEMATOLOGY ORDERABLES Fi nal Result Performing Organization Address City/[facility]/ZIP Co de Phone Number [facility] [address] [place] [phone], [place] [phone] * ETOH Level (04/18/2025 6:15 PM CDT) Pathologist [facility] ETHANOL <10 <10 mg/dL 04/18/2025 6:42 PM CDT [facility] Blood Venous Catheter (IV) / Unknown 04/18/2025 6:15 PM CDT 04/18/2025 6:23 PM CDT Narrative [facility] - 04/18/2025 6:42 PM CDT FOR MEDICAL USE ONLY us Leo Navarrete DO CHEMISTRY ORDERABLES Fin al Result Performing Organization Address [facility]/ZIP Co de Phone Number [facility] [address] [place] [phone], [place] [phone] * (ABNORMAL) CMP (04/18/2025 6:15 PM CDT) SODIUM 144 136 - 145 mmol/L 04/18/2025 6:45 PM CDT [facility] POTASSIUM 3.3(L) 3.5 - 5.1 mmol/L 04/18/2025 6:45 PM CDT [facility] CHLORIDE 107 98 - 107 mmol/L 04/18/2025 6:45 PM CDT [facility] CO2, VENOUS 26 22 - 30 mmol/L 04/18/2025 6:45 PM CDT [facility] ANION GAP 11.0 <18.0 mmol/L 04/18/2025 6:45 PM CDT [facility] GLUCOSE 122(H) 70 - 99 mg/dL 04/18/2025 6:45 PM CDT [facility] BUN 18 8 - 26 mg/dL 04/18/2025 6:45 PM CDT [facility] CREATININE, BLOOD 1.18 0.70 - 1.30 mg/dL 04/18/2025 6:45 PM CDT [facility] BUN/CREATININE RATIO 15 12 - 20 ratio 04/18/2025 6:45 PM CDT [facility] TOTAL PROTEIN 7.2 6.0 - 8.0 g/dL 04/18/2025 6:45 PM CDT [facility] ALBUMIN 4.6 3.5 - 5.0 g/dL 04/18/2025 6:45 PM CDT [facility] A/G RATIO 1.8 1.0 - 2.2 04/18/2025 6:45 PM CDT [facility] CALCIUM 9.5 8.7 - 10.5 mg/dL 04/18/2025 6:45 PM CDT [facility] T BILI 0.5 0.2 - 1.2 mg/dL 04/18/2025 6:45 PM T [facility] SGOT (AST) 24 <43 U/L 04/18/2025 6:45 PM CDT [facility] SGPT (ALT) 13 <56 U/L 04/18/2025 6:45 PM CDT [facility] ALKALINE PHOSPHATASE 81 40 - 150 U/L 04/18/2025 6:45 PM CDT [facility] GFR, ESTIMATED >60 >=60 04/18/2025 6:45 PM CDT [facility] Comment: Creatinine Clearance is the preferred criteria for selecting drug dose adjustments in renally impaired patients. The GFR is provided as additional pertinent clinical information. GFR is reported in mL/min/1.73 sq m. Calculation based on the Chronic Kidney Disease Epidemiology Collaboration (CKD- EPI) equation refit without adjustment for race. GFR, EST. >60 >=60 025 6:45 PM CDT [facility] GFR, EST. NONAFRICAN >60 >=60 04/18/2025 6:45 PM CDT [facility] Blood Venous Catheter (IV) / Unknown 04/18/2025 6:15 PM CDT 04/18/2025 6:23 PM CDT us Leo Navarrete DO CHEMISTRY ORDERABLES Fin al Result [facility] [address] [place] [phone], * Blood Culture #2 (04/18/2025 6:13 PM CDT) Only the most recent of2 resultswithin the time period is included. CULTURE RESULTS NO GROWTH WITHIN 5 DAYS, FINAL RESULT 04/23/2025 7:00 PM CDT [facility] Culture BLOOD SPECIMEN / Unknown Venous Catheter (IV) / Unknown 04/18/2025 6:13 PM CDT 04/18/2025 6:22 PM CDT us Leo Navarrete DO MICROBIOLOGY - GENERAL O RDERABLES Final Result [facility] [address] [place] [address] from Last 3 Months Insurance MEDICARE C [employer] Care Teams Metal Roofer Relationship Specialty Start Date End Date Provider, None [place] PCP - General 04/18/25
--- OUTSIDE RECORDS SUMMARY | 2025-05-09 11:06 | XMS_ITS | Encounter Summary ---
Author Organization [facility] Address [address] [place] [address] Care Team Providers Care Wet Roller Name Role Phone Unavailable Primary Care Provider [...] on file Legal Sex Male 5:12 AM HUMAN RESOURCES SERVICES SPECIALIST Gender Identity Not on file Sexual Orientation Not on file documented as of this encounter Plan of Treatment Not on file documented as of this encounter Procedures Procedure Name Priority Date/Time Associated Diagnosis Comments URINALYSIS WITH REFLEX CULTURE Routine 10/11/2007 8:25 AM HUMAN RESOURCES SERVICES SPECIALIST URINALYSIS W/REFLEX MICROSCOPIC Routine 10/11/2007 8:25 AM HUMAN RESOURCES SERVICES SPECIALIST HEMOGLOBIN AND HEMATOCRIT Routine 10/11/2007 7:00 AM HUMAN RESOURCES SERVICES SPECIALIST BASIC METABOLIC PANEL Routine 10/11/2007 7:00 AM HUMAN RESOURCES SERVICES SPECIALIST HEMOGLOBIN AND HEMATOCRIT Routine 10/10/2007 5:35 AM HUMAN RESOURCES SERVICES SPECIALIST HEMOGLOBIN AND HEMATOCRIT Routine 09/30/2007 9:16 AM HUMAN RESOURCES SERVICES SPECIALIST documented in this encounter Results * (ABNORMAL) URINALYSIS (10/11/2007 8:25 AM HUMAN RESOURCES SERVICES SPECIALIST) COLOR UA Pale Yellow INTERFAC E SYSTEM [...] 3 /HPF INTERFACE SYSTEM 10/11/2007 8:25 AM HUMAN RESOURCES SERVICES SPECIALIST us Mia Espinal MD URINE ORDERABLES Edited Performing Organization Address [facility] Phone Number INTERFACE SYSTEM Refer to clinic/hospital department * URINALYSIS WITH REFLEX CULTURE (10/11/2007 8:25 AM HUMAN RESOURCES SERVICES SPECIALIST) URINE CULTURE ORDER Culture ordered INTERFACE SYSTEM Comment: Criteria for a reflex culture include one or more of the following: Abn ormal nitrite, leukocyte esterase, WBCs or RBCs. Lack of qualifying criteria does not exclude the possiblity of a urinary tract infection. Dilute urine, drug interference, etc. may decrease the sensitivity of the criteria analytes. 10/11/2007 8:25 AM HUMAN RESOURCES SERVICES SPECIALIST us Mia Espinal MD URINE ORDERABLES Edited Performing Organization Address [facility] Phone Number INTERFACE SYSTEM Refer to clinic/hospital department * (ABNORMAL) BASIC METABOLIC PANEL (10/11/2007 7:00 AM HUMAN RESOURCES SERVICES SPECIALIST) GLUCOSE 120(H) 65 - 99 mg/dL INTERFACE [...] on the [facility] Intranet at: [email or web address] Select: Lab Policies and Procedures Select: Reference Ranges - GFR 10/11/2007 7:00 AM HUMAN RESOURCES SERVICES SPECIALIST us Mia Espinal MD CHEMISTRY ORDERABLES Edited Performing Organization Address City/[facility] Phone Number INTERFACE SYSTEM Refer to clinic/hospital department * (ABNORMAL) HEMOGLOBIN AND HEMATOCRIT (10/11/2007 7:00 AM HUMAN RESOURCES SERVICES SPECIALIST) HEMOGLOBIN 8.9(L) 13.6 - 16.5 g/dL INTERFACE SYSTEM HEMATOCRIT 26.4(L) 40.0 - 48.0 % INTERFACE SYSTEM 10/11/2007 7:00 AM HUMAN RESOURCES SERVICES SPECIALIST Result Andria Sotelo MD HEMATOLOGY ORDERABLES Edited Performing Organization Address [facility] Phone Number INTERFACE SYSTEM Refer to clinic/hospital department * (ABNORMAL) HEMOGLOBIN AND HEMATOCRIT (10/10/2007 5:35 AM HUMAN RESOURCES SERVICES SPECIALIST) HEMOGLOBIN 9.0(L) 13.6 - 16.5 g/dL INTERFACE SYSTEM HEMATOCRIT 27.3(L) 40.0 - 48.0 % INTERFACE SYSTEM 10/10/2007 5:35 AM HUMAN RESOURCES SERVICES SPECIALIST Result Andria Sotelo MD HEMATOLOGY ORDERABLES Edited Performing Organization Address [facility] Phone Number INTERFACE SYSTEM Refer to clinic/hospital department * HEMOGLOBIN AND HEMATOCRIT (09/30/2007 9:16 AM HUMAN RESOURCES SERVICES SPECIALIST) HEMOGLOBIN 14.3 13.6 - 16.5 g/dL INTERFACE SYSTEM HEMATOCRIT 41.4 40.0 - 48.0 % INTERFACE SYSTEM 09/30/2007 9:16 AM HUMAN RESOURCES SERVICES SPECIALIST Result Andria Sotelo MD HEMATOLOGY ORDERABLES Edited Performing Organization Address City/[facility] de Phone Number INTERFACE SYSTEM Refer to clinic/hospital department documented in this encounter Visit Diagnoses Diagnosis Osteoarthrosis, unspecified whether generalized or localized, lower leg documented in this encounter
[2025-05-09 11:11] LABS: Hypochromasia Occasional; Polychromasia Occasional; Schistocytes None Seen
[2025-05-09 11:16] LABS: Troponin I < 0.012 ng/mL (0.000-0.034)
[2025-05-09 11:18] LABS: Add Urine Microscopic? YES; Appearance Urine Cloudy (Clear); Glucose Urine UA Negative (Negative); Leukocyte Esterase Ur 3+ LEU/UL (Negative); Need Manual Microscopic Reviewed; Nitrate Urine Negative (Negative); Specific Grav Ur 1.012 (1.001-1.035)
[2025-05-09] MEDS: ACETAMINOPHEN 650 MG SUPPOSITORY RECTAL (11:33)
[2025-05-09] MEDS: cefTRIAXone 2 GM in SODIUM CHLORIDE 0.9% IV 100 ML 200 ML IVPB (12:06)
--- NOTE | 2025-05-09 12:08 | ECG_ITS ---
Test Date: 2025-05-09 10:14:28 Measurements Intervals [place] Rate: 116 P: 101 OR: 193 QRS: -31 QRSD: 90 T: 45 QT: 345 QTc: 480 Interpretive Statements SINUS TACHYCARDIA LEFT AXIS DEVIATION INCOMPLETE RIGHT BUNDLE BRANCH BLOCK DELAYED PRECORDIAL R/S TRANSITION BORDERLINE T WAVE ABNORMALITY- INFERIOR LEADS ABNORMAL ECG Compared to ECG 05/09/2025 10:11:45 SUPRAVENTRICULAR TACHYCARDIA NO LONGER PRESENT Electronically Signed On 05-09-2025 13:02:42 CDT by Kirill Portillo D.O.
--- NOTE | 2025-05-09 12:52 | ED_ITS ---
HPI - Altered Mental Status General Chief Complaint: Altered Mental Status Stated Complaint: AMS Time Seen by Provider: 05/09/25 10:10 History of Present Illness HPI narrative: Patient who was recently admitted here for stroke presents here with worsening delirium the past day, his has been trying to care for him at home but he has been very confused and difficult to to care for. Seems confused. Also going into atrial fibrillation with rapid heart rate. Patient reporting some nausea Related Data Home Medications ?Medication ?Instructions ?Recorded ?Confirmed ?Last Taken ?Type lisinopril 20 2 tablet PO DAILY 05/03/25 0 05/03/25 Unknown History mg-hydrochlorothiazide 25 mg tablet Allergies Allergy/AdvReac Type Severity Reaction Status Date / Time Penicillins Allergy Unknown Anaphylaxis Verified 05/03/25 08:56 Review of Systems 2 Review of Systems: ROS unobtainable: Yes unobtainable due to mental status PMFSH Past Medical History Medical History (Updated 05/09/25 @ 13:27 by Teri Pearce APRN) Atrial fibrillation Seizure disorder Hyperlipidemia Acute cerebrovascular accident Encounter for screening for cardiovascular disorders Hyperglycemia Hypertension Surgical History Surgical History History of bilateral knee replacement History of orthopedic surgery Right upper extremity reconstruction Family History Family History Mother Family history of diabetes mellitus in first degree relative Sibling Carcinoma of colon Uterine cancer Social History Social History Smoking packs per day: 0.5 Smoking cigarettes per day: 10.0 Years smoked: 15 Smoking pack-years: 7.50 Smoking status: Former smoker Tobacco type: cigarettes Second hand tobacco smoke exposure: Yes Smoking end date: 09/15/04 Alcohol intake: former Substance use: current Substance use type: marijuana Other substance usage details: 3x weekly Last use: today Do You Feel Safe in your Home?: Yes Lack of Transportation: No Lack of Food: Never True Current Housing: I Have Housing Concerned About Future Housing: No Difficulty Paying Gas/Electric Bills: No Difficulty Paying for Meds: No Currently Unemployed: No Education: High School Diploma/GED Difficulty w/ Childcare or Family Care: No Living arrangements: with family Spiritual care concerns: No Exam 2 Narrative: EXAMINATION OF ORGAN SYSTEMS/BODY AREAS: Constitutional: Vital signs per nursing GENERAL:[No acute distress, non-toxic appearing.] HEAD: Normal with no signs of head trauma. EYES: EOMI, conjunctiva normal ENT: Hearing grossly intact LUNGS: Nonlabored breathing. HEART: Tachycardic ABD: [Soft], [nontender to palpation] EXT: Normal range of motion SKIN: [No rashes or lesions.] NEURO: [Alert, confused. No gross focal sensory or strength deficits.] PSYCH: Normal affect Course Vital Signs Vital signs: Vital Signs Pulse Rate 169 H 05/09/25 09:57 Respiratory Rate 36 H 05/09/25 09:57 Blood Pressure 169/98 H 05/09/25 09:57 Pulse Oximetry 99 05/09/25 09:57 Oxygen Delivery Room Air 05/09/25 09:57 Temperature 101 F H 05/09/25 10:31 Pulse Rate 144 H 05/09/25 10:58 Respiratory Rate 16 05/09/25 10:46 Blood Pressure 127/70 05/09/25 10:46 Pulse Oximetry 97 05/09/25 10:32 Oxygen Delivery Room Air 05/09/25 10:20 MDM - Altered Mental Status MDM Narrative Medical decision making narrative: Patient presents here with altered mental status, on exam he on telemetry he appears to and tachyarrhythmia, intermittently, he is confused and does not know why he is here, but he does report nausea. EKG initially shows SVT, rate 166, WV 189, QRS 88, QTC 494, some diffuse depressions likely from demand ischemia Have not gotten his medications today so he is given some fluids, metoprolol with resolution of the SVT. He did have a fever so that likely contributes, given Tylenol. He is now back in sinus rhythm, repeat EKG showing sinus tachycardia rate 116, WV 193, QRS 90, QTC [address] depressions Labs concerning for white count of 21, he does have a significant urinary tract infection that was not present when he was admitted here last time, I do suspect this is the cause of his symptoms. CT head, chest abdomen pelvis obtained to rule out any other cause of his symptoms which thankfully does not show anything else acute other than possible prostatitis. Started on antibiotics, discussed with hospitalist for admission. Discussed with the at bedside Lab Data 05/09/25 10:44 05/09/25 10:44 Labs: Lab Results 05/09/25 Range/Units 10:44 WBC 21.2 H (4.5-10.0) K/mm3 RBC 3.87 L (4.6-6.20) M/mm3 Hgb 12.3 L D (14.0-18.0) g/dL Hct 34.3 L (42.0-52.0) % MCV 88.6 (80-100) fl MCH 31.8 (26-34) pg MCHC 35.9 (32-36) g/dl RDW 13.2 (11.5-14.5) % Plt Count 317 (150-375) k/mm3 MPV 9.2 (7.4-10.4) fl Immature Gran % (Auto) 0.6 H (0-0.5) % Neut % (Auto) 96.9 H (45.5-73.1) % Lymph % (Auto) 1.1 L (18.3-44.2) % Richardson % (Auto) 1.2 L (2.6-8.5) % Eos % (Auto) 0.0 (0-4.4) % Baso % (Auto) 0.2 (0.2-1.2) % Lymph # (Auto) 0.24 L (0.9-3.2) K/mm3 Richardson # (Auto) 0.3 (0.1-0.6) K/mm3 Eos # (Auto) 0.0 (0-0.3) K/mm3 Baso # (Auto) 0.0 (0.0-0.1) K/mm3 Abs Immat Gran (auto) 0.13 H (0.00-0.031) K/mm3 Absolute Neuts (auto) 20.6 H (1.3-6.7) K/mm3 Absolute Nucleated RBC 0.000 (0.0-0.012) K/mm3 Band Neutrophils % Not Reportable Nucleated RBC % 0.0 (0.0-0.2) % Platelet Estimate Adequate (Adequate) Polychromasia Occasional Hypochromasia Occasional Schistocytes None seen PT 16.1 H (11.1-14.7) Seconds INR 1.3 APTT 28.3 (22.3-36.8) Seconds Sodium 132 L (137-145) mmol/L Potassium 3.5 (3.4-5.0) mmol/L Chloride 100 (98-107) mmol/L Carbon Dioxide 23 (22-30) mmol/L Anion Gap 9 (4-12) mmol/L BUN 16 (9-20) mg/dL Creatinine 0.87 (0.7-1.3) mg/dL Estim Creat Clear Calc Not Reportable Estimated GFR > 60 (59 - ) Glucose 184 H (65-110) mg/dL Calcium 9.0 (8.4-10.2) mg/dL Total Bilirubin 1.3 (0.2-1.3) mg/dL AST 30 (17-59) U/L ALT 22 (6-50) U/L Alkaline Phosphatase 91 (38-126) U/L Troponin I < 0.012 (0.000-0.034) ng/mL Total Protein 6.7 (6.3-8.2) g/dL Albumin 4.2 (3.5-5.1) g/dL Urine Color Yellow (Yellow) Urine Appearance Cloudy H (Clear) Urine pH 6.5 (5.0-9.0) Ur Specific [place] 1.012 (1.001-1.035) Urine Protein 1+ H (Negative) mg/dL Urine Glucose (UA) Negative (Negative) mg/dL Urine Ketones 1+ H (Negative) mg/dL Ur Blood (Man) 3+ H (Negative) Urine Nitrate Negative (Negative) Urine Bilirubin Negative (Negative) Urine Urobilinogen 1.0 (<2.0) mg/dL Add Ur Microanalysis Reviewed Leukocyte Esterase Rfl 3+ H (Negative) REGLA/UL Urine RBC 21-50 H (0-2) /hpf Urine WBC >100 H (0-3) /hpf Urine WBC Clumps Present H (None) /HPF Ur Squamous Epith Cells None seen (Few) /hpf Urine Bacteria 2+ H /hpf Urine Casts 6-10 Critical Care Time Critical Care Time Critical Care Time: Yes Total Critical Care Time: 31 Discharge Plan Discharge Patient Language: Mexican Prescriptions: No Action metoprolol succinate 50 mg tablet extended release 24 hr 50 mg PO DAILY Qty: 90 2RF lisinopril-hydrochlorothiazide 20-25 mg tablet 2 tablet PO DAILY donepezil [Aricept] 10 mg tablet 10 mg PO DAILY Qty: 90 2RF bupropion HCl [Wellbutrin XL] 150 mg tablet extended release 24 hr 150 mg PO DAILY Qty: 90 2RF atorvastatin 40 mg Tablet 40 mg PO DAILY 30 Days Qty: 30 1RF clopidogrel 75 mg Tablet 75 mg PO QAM 30 Days Qty: 30 1RF aspirin 81 mg Tablet,Delayed Release (Dr/Ec) 81 mg PO QAM 30 Days Qty: 30 1RF acetaminophen [Tylenol Extra Strength] 500 mg tablet 1,000 mg PO Q6H PRN (Reason: pain) Qty: 50 0RF lisinopril 20 mg Tablet 40 mg PO QAM Qty: 30 0RF Eliquis 5 mg Tablet 5 mg PO Q12HR Qty: 60 0RF lacosamide 100 mg tablet 100 mg PO Q12H Qty: 14 0RF Rx Instructions: Take for week one 7 days total lacosamide 150 mg tablet 150 mg PO Q12H Qty: 14 0RF Rx Instructions: Take week 2 for 2 days lacosamide 200 mg tablet 200 mg PO Q12H Qty: 60 0RF Rx Instructions: Start on day 15 after completing your prescription for 150MG twice a day and continue daily
--- NOTE | 2025-05-09 13:02 | P.HP_ITS ---
H&P: HPI History of Present Illness Date/Time: 05/09/25 13:02 Chief Complaint: AMS Narrative: 69 y/o M with PMH of recent CVA, atrial fibrillation, and HTN presents here with AMS. The patient presents here from home via EMS for further evaluation of altered mental status. 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 He was discharged on triple therapy on 04/25 to home. Shortly after arrival home he smoked marijuana and he returned to the hospital for re-evaluation as he was unresponsive her his . At the time she reported his body had went rigid for several minutes and was acutely altered when he regained consciousness. He was re-evaluated by Neurology during it his 2nd admission. During the course of his admission he became more agitated which Neurology felt may be related to the Keppra and he was transition to lacosamide verses a manifestation of the stroke. The patient was also evaluated by Psychiatry who felt he would benefit from a neuro psychological evaluation in the outpatient setting. He is now returning today for re-evaluation for altered mental status, nausea, and vomiting. The patient's provided majority of the following history. She reports over the last few days? it has been increasingly difficult to care for the patient due to confusion. The patient denies any current nausea or vomiting, abdominal pain, chest pain, shortness of breath, diarrhea, burning with urination, or fever. Reporting urinary frequency and chills. Initial VS at presentation: 101? F, HR 169, R 36, 169/98, and 99% on RA. ED workup showed: WBC 21.2, hemoglobin 12.3, INR 1.3, sodium 132, creatinine 0.87 and GFR >60, glucose 184, initial troponin negative, UA suspicious for UTI. Head CT showed few old lacunar infarcts in the right basal ganglia and the coronal radiata of the bilateral frontal and right parietal lobes, no acute intracranial process, age-related changes. CT of the chest/abdomen/pelvis so prostatomegaly with surrounding trace stranding also extending around the bilateral seminal vesicles which raises concern for prostatitis, no acute cardiopulmonary disease or other acute intra-abdominal/pelvic process. Review of Systems Review of Systems: All systems reviewed & are unremarkable except as noted in HPI and below [facility] Past Medical History Medical History (Updated 05/09/25 @ 14:36 by Zo Thayer) Atrial fibrillation Seizure disorder Hyperlipidemia Acute cerebrovascular accident Encounter for screening for cardiovascular disorders Hyperglycemia Hypertension Surgical History Surgical History History of bilateral knee replacement History of orthopedic surgery Right upper extremity reconstruction Family History Family History Mother Family history of diabetes mellitus in first degree relative Sibling Carcinoma of colon Uterine cancer Social History Social History Smoking packs per day: 0.5 Smoking cigarettes per day: 10.0 Years smoked: 15 Smoking pack-years: 7.50 Smoking status: Former smoker Second hand tobacco smoke exposure: Yes Alcohol intake: former Substance use: current Substance use type: marijuana Other substance usage details: 3x weekly Last use: today Do You Feel Safe in your Home?: Yes Lack of Transportation: No Lack of Food: Never True Current Housing: I Have Housing Concerned About Future Housing: No Difficulty Paying Gas/Electric Bills: No Difficulty Paying for Meds: No Currently Unemployed: No Education: High School Diploma/GED Difficulty w/ Childcare or Family Care: No Living arrangements: with family Spiritual care concerns: No Meds Home Medications and Allergies Home Medications ?Medication ?Instructions ?Recorded ?Confirmed ?Type metoprolol succinate 50 mg 50 mg PO DAILY #90 tabs 07/0905/09/25 Rx tablet,extended release 24 hr acetaminophen 500 mg tablet 1,000 mg (2 x 500 mg) PO Q 6H PRN 12/28/24 05/09/25 Rx (Tylenol Extra Strength) pain #50 tabs aspirin 81 mg tablet,delayed 81 mg PO QAM 30 days #30 tabs 04/25/25 05/09/25 Rx release atorvastatin 40 mg tablet 40 mg PO DAILY 30 days #30 t abs 04/25/25 05/09/25 Rx clopidogrel 75 mg tablet 75 mg PO QAM 30 days #30 tab s 04/25/25 05/09/25 Rx apixaban 5 mg tablet (Eliquis) 5 mg PO Q12HR #60 tabs 04/29/25 05/09/25 Rx lisinopril 20 mg tablet 40 mg (2 x 20 mg) PO QAM #30 tabs 04/29/25 05/09/25 Rx bupropion HCl 150 mg 24 hr tablet, 150 mg PO DAILY #90 tabs 05/03/25 05/09/25 Rx extended release (Wellbutrin XL) donepezil 10 mg tablet (Aricept) 10 mg PO DAILY #90 ta bs 05/03/25 05/09/25 Rx lacosamide 100 mg tablet 200 mg PO Q12H 05/09/25/02/06 History Allergies Allergy/AdvReac Type Severity Reaction Status Date / Time Penicillins Allergy Unknown Anaphylaxis Verified 05/09/25 15:57 Vital Signs Vital Signs - 24 hr 05/09/25 09:57 05/09/25 10:04 05/09/25 10:05 Temperature Pulse Rate 169 H 125 H 169 H Respiratory Rate 36 H 37 H 30 H Blood Pressure 169/98 H 169/98 H Pulse Oximetry 99 98 99 Oxygen Delivery Room Air 05/09/25 10:15 05/09/25 10:15 05/09/25 10:16 Temperature Pulse Rate 169 H 168 H 168 H Respiratory Rate 31 H 24 H Blood Pressure 105/70 Pulse Oximetry 99 98 Oxygen Delivery 05/09/25 10:17 05/09/25 10:18 05/09/25 10:20 Temperature Pulse Rate 165 H 160 H Respiratory Rate 15 32 H Blood Pressure 103/66 103/74 Pulse Oximetry 99 100 Oxygen Delivery Room Air 05/09/25 10:30 05/09/25 10:31 05/09/25 10:32 Temperature 101 F H Pulse Rate 106 H 107 H 107 H Respiratory Rate 34 H 32 H 34 H Blood Pressure 148/74 H Pulse Oximetry 98 98 97 Oxygen Delivery 05/09/25 10:45 05/09/25 10:46 05/09/25 10:58 Temperature Pulse Rate 106 H 108 H 144 H Respiratory Rate 29 H 16 Blood Pressure 127/70 Pulse Oximetry Oxygen Delivery Exam Const: General: comfortable and no acute distress Other: , male, elderly, nontoxic appearance HENMT: Face/Nose/Sinus: Normal nares present Mouth: Yes moist mucous membranes Eyes: General: appearance normal, both eyes and all related structures Sclera: sclerae normal Pupils: Equal, round and reactive pupils present EOM: EOMs intact bilaterally Resp: Effort & Inspection: normal respiratory effort Auscultation: clear to auscultation bilaterally Cardio: Rate: regular rate Rhythm: regular rhythm Other: S1-S2 present without murmur, rub, ectopy GI: Other: Abdomen soft, nondistended, nontender. Normoactive bowel sounds in all quadrants. Skin: General skin exam: normal color and no rashes or lesions noted Wounds: no wounds Neuro: Speech: normal speech Motor exam (neuro): 5/5 motor strength present throughout Sensory Exam: normal sensation Other: A/Ox3, no tremors or involuntary movements appreciated. Extrem: General: normal to inspection Psych: Mental Status: mental status grossly normal Affect: normal affect Other: Fair insight and judgment, pleasant, no agitation noted. H&P: Results Labs Labs: Short CBC 05/09/25 Range/Units 10:44 WBC 21.2 H (4.5-10.0) K/mm3 Hgb 12.3 L D (14.0-18.0) g/dL Hct 34.3 L (42.0-52.0) % Plt Count 317 (150-375) k/mm3 BMP 05/09/25 10:44 Sodium 132 L Potassium 3.5 Chloride 100 Carbon Dioxide 23 BUN 16 Creatinine 0.87 Glucose 184 H Calcium 9.0 Cardiac Enzymes 05/09/25 Range/Units 10:44 Troponin I < 0.012 (0.000-0.034) ng/mL Liver Function 05/09/25 Range/Units 10:44 Total Bilirubin 1.3 (0.2-1.3) mg/dL AST 30 (17-59) U/L ALT 22 (6-50) U/L Alkaline Phosphatase 91 (38-126) U/L Albumin 4.2 (3.5-5.1) g/dL Urine 05/09/25 Range/Units 10:44 Urine Color Yellow (Yellow) Urine Appearance Cloudy H (Clear) Urine pH 6.5 (5.0-9.0) Ur Specific [place] 1.012 (1.001-1.035) Urine Protein 1+ H (Negative) mg/dL Urine Glucose (UA) Negative (Negative) mg/dL Assessment and Plan Assessment and plan (1) AMS (altered mental status): Qualifiers: Altered mental status type: delirium Qualified Code(s): R41.0 - Disorientation, unspecified Code(s): R41.82 - Altered mental status, unspecified Status: Acute Assessment and Plan: - Head CT, 05/09: 1. Few old lacunar infarcts in the right basal ganglia and in the coronal radiata of the bilateral frontal and right parietal lobes. No acute intracranial process. 2. Age-related changes including mild to moderate diffuse volume loss and extensive scattered white matter hypoattenuation consistent with chronic small vessel ischemic disease. - recent dx of CVA on 04/23. MRI showed a small acute infarct at the genu of the right corpus callosum and several old lacunar infarcts at the right basal ganglia and right frontal and parietal lobe dobbins radiata. developed agitation during this admission -> CVA sequela vs Keppra SE, transitioned to Lacosamide - UA consistent with UTI - check UDS Worsening AMS likely secondary to acute UTI/prostatitis. Started on abx. If no improvement with treatment, consider neurology re-evaluation. (2) UTI (urinary tract infection): Qualifiers: Hematuria presence: without hematuria Urinary tract infection type: acute cystitis Qualified Code(s): N30.00 - Acute cystitis without hematuria Code(s): N39.0 - Urinary tract infection, site not specified Status: Acute Assessment and Plan: - UA: Cloudy, 1+ protein, 1+ ketones, 3+ blood, 3+ leuk esterase, 21-50 RBC, greater than 100 WBC, WBC clumps present, no epithelial - UC pending - no previous micro urine available for review - started on Ceftriaxone on 05/09 (3) Prostatitis: Qualifiers: Prostatitis type: acute Qualified Code(s): N41.0 - Acute prostatitis Code(s): N41.9 - Inflammatory disease of prostate, unspecified Status: Acute Assessment and Plan: - CT showed indicators of prostatitis - started on ceftriaxone on 05/09 (4) Anemia: Qualifiers: Anemia type: unspecified type Qualified Code(s): D64.9 - Anemia, unspecified Code(s): D64.9 - Anemia, unspecified Status: Acute Assessment and Plan: - Hgb 12.3 upon admission on 05/09. 15.7 at discharge on 04/29. - check iron, TIBC, ferritin, B12, folic acid, and stool guaiac. - TSH 3.23 on 04/28 - transfuse if <7 - trend H&H - of note, recently started on Eliquis and Plavix secondary to acute stroke earlier this month (5) History of CVA (cerebrovascular accident): Code(s): Z86.73 - Personal history of transient ischemic attack (TIA), and cerebral infarction without residual deficits Status: Chronic Assessment and Plan: - Brain MRI, 04/23: 1. Small acute infarct at the genu of the right corpus callosum. 2. Several old lacunar infarcts at the right basal ganglia and right frontal and parietal lobe dobbins radiata. 3. Multiple small foci of susceptibility artifact scattered throughout the brain including the cerebral hemispheres, midbrain and cerebellum consistent with chronic microhemorrhage typically seen in the setting of hypertension but can also be seen with amyloid angiopathy. - see Head CT impression from 05/09 above worsening AMS likely secondary to UTI, however could be sequela of recent CVA. started on abx, monitor response. (6) Seizure disorder: Code(s): G40.909 - Epilepsy, unspecified, not intractable, without status epilepticus Status: Chronic Assessment and Plan: - continue lacosamide (7) Atrial fibrillation: Qualifiers: Atrial fibrillation type: unspecified chronic Qualified Code(s): I48.20 - Chronic atrial fibrillation, unspecified Code(s): I48.91 - Unspecified atrial fibrillation Status: Chronic Assessment and Plan: - continue home medications: Metoprolol, Eliquis (8) Hyperglycemia: Code(s): R73.9 - Hyperglycemia, unspecified Status: Chronic Assessment and Plan: - glucose 184 upon admission - A1C 5.9% on 04/25/25 (9) Hypertension: Qualifiers: Hypertension type: essential hypertension Qualified Code(s): I10 - Essential (primary) hypertension Code(s): I10 - Essential (primary) hypertension Status: Chronic Assessment and Plan: - chronic, currently 127/70 - continue home medications: Lisinopril, metoprolol - monitor Plan Diet: Heart healthy GI Prophylaxis: N/a DVT Prophylaxis: Eliquis IV fluids: 2L -> 125 mL/hr Lines/Tubes: Peripheral IV Code Status: Full code Quality VTE Prophylaxis VTE prophylaxis: pharmacologic ordered Hospitalist MIPS Advance Care Plan I have confirmed that the patient's Advanced Care Plan is present, code status is documented, or surrogate decision maker is listed in patient medical record.: Yes Medication Reconciliation I have utilized all available resources to obtain, update and review the patients current medications (includes all prescriptions, OTC, herbals, cannabis, and nutritional supplements).: Yes
[2025-05-09] MEDS: SODIUM CHLORIDE 0.9% IV 1,000 ML 999 ML IV CONT (13:08)
[2025-05-09] MEDS: LACTATED RINGERS 1,000 ML 999 ML IV CONT (14:39)
--- OUTSIDE RECORDS SUMMARY | 2025-05-09 15:37 | XMS_ITS | Encounter Summary ---
Author Organization [facility] Address 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 Gender Identity Not on file Sexual Orientation Not on file documented as of this encounter Plan of Treatment Not on file documented as of this encounter Procedures Procedure Name Priority Date/Time Associated Diagnosis Comments URINALYSIS WITH REFLEX CULTURE Routine 10/11/2007 8:25 AM TRUCK BODY REPAIRER URINALYSIS W/REFLEX MICROSCOPIC Routine 10/11/2007 8:25 AM TRUCK BODY REPAIRER HEMOGLOBIN AND HEMATOCRIT Routine 10/11/2007 7:00 AM TRUCK BODY REPAIRER BASIC METABOLIC PANEL Routine 10/11/2007 7:00 AM TRUCK BODY REPAIRER HEMOGLOBIN AND HEMATOCRIT Routine 10/10/2007 5:35 AM TRUCK BODY REPAIRER HEMOGLOBIN AND HEMATOCRIT Routine 09/30/2007 9:16 AM TRUCK BODY REPAIRER documented in this encounter Results * (ABNORMAL) URINALYSIS (10/11/2007 8:25 AM TRUCK BODY REPAIRER) COLOR UA Pale Yellow INTERFAC E SYSTEM [...] 3 /HPF INTERFACE SYSTEM 10/11/2007 8:25 AM TRUCK BODY REPAIRER us Mia Espinal MD URINE ORDERABLES Edited Performing Organization Address [facility] Phone Number INTERFACE SYSTEM Refer to clinic/hospital department * URINALYSIS WITH REFLEX CULTURE (10/11/2007 8:25 AM TRUCK BODY REPAIRER) URINE CULTURE ORDER Culture ordered INTERFACE SYSTEM Comment: Criteria for a reflex culture include one or more of the following: Abn ormal nitrite, leukocyte esterase, WBCs or RBCs. Lack of qualifying criteria does not exclude the possiblity of a urinary tract infection. Dilute urine, drug interference, etc. may decrease the sensitivity of the criteria analytes. 10/11/2007 8:25 AM TRUCK BODY REPAIRER us Mia Espinal MD URINE ORDERABLES Edited Performing Organization Address [facility] Phone Number INTERFACE SYSTEM Refer to clinic/hospital department * (ABNORMAL) BASIC METABOLIC PANEL (10/11/2007 7:00 AM TRUCK BODY REPAIRER) GLUCOSE 120(H) 65 - 99 mg/dL INTERFACE [...] available on the [facility] Intranet at: [email or web address] Select: Lab Policies and Procedures Select: Reference Ranges - GFR 10/11/2007 7:00 AM TRUCK BODY REPAIRER us Mia Espinal MD CHEMISTRY ORDERABLES Edited Performing Organization Address City/[facility] Phone Number INTERFACE SYSTEM Refer to clinic/hospital department * (ABNORMAL) HEMOGLOBIN AND HEMATOCRIT (10/11/2007 7:00 AM TRUCK BODY REPAIRER) HEMOGLOBIN 8.9(L) 13.6 - 16.5 g/dL INTERFACE SYSTEM HEMATOCRIT 26.4(L) 40.0 - 48.0 % INTERFACE SYSTEM 10/11/2007 7:00 AM TRUCK BODY REPAIRER Result Andria Sotelo MD HEMATOLOGY ORDERABLES Edited Performing Organization Address [facility] Phone Number INTERFACE SYSTEM Refer to clinic/hospital department * (ABNORMAL) HEMOGLOBIN AND HEMATOCRIT (10/10/2007 5:35 AM TRUCK BODY REPAIRER) HEMOGLOBIN 9.0(L) 13.6 - 16.5 g/dL INTERFACE SYSTEM HEMATOCRIT 27.3(L) 40.0 - 48.0 % INTERFACE SYSTEM 10/10/2007 5:35 AM TRUCK BODY REPAIRER Result Andria Sotelo MD HEMATOLOGY ORDERABLES Edited Performing Organization Address [facility] Phone Number INTERFACE SYSTEM Refer to clinic/hospital department * HEMOGLOBIN AND HEMATOCRIT (09/30/2007 9:16 AM TRUCK BODY REPAIRER) HEMOGLOBIN 14.3 13.6 - 16.5 g/dL INTERFACE SYSTEM HEMATOCRIT 41.4 40.0 - 48.0 % INTERFACE SYSTEM 09/30/2007 9:16 AM TRUCK BODY REPAIRER Result Andria Sotelo MD HEMATOLOGY ORDERABLES Edited Performing Organization Address City/[facility] de Phone Number INTERFACE SYSTEM Refer to clinic/hospital department documented in this encounter Visit Diagnoses Diagnosis Osteoarthrosis, unspecified whether generalized or localized, lower leg documented in this encounter
--- OUTSIDE RECORDS SUMMARY | 2025-05-09 15:37 | XMS_ITS | Encounter Summary ---
Author Organization [facility] Address 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
--- OUTSIDE RECORDS SUMMARY | 2025-05-09 15:37 | XMS_ITS | Clinical Summary ---
Author Organization [facility] Address [address] [place] [phone] Phone Care Team Providers Care Pricing Specialist Name Role Phone Provider, None Primary Care Provider Unavailabl e Allergies Active Allergy Reactions Criticality Noted Date Comments Penicillins Other (see Comments) 04/18/2025 Encounters Date Type Department Care Team Description 04/18/2025 5:25 PM CDT - 04/18/2025 9:53 PM CDT [facility] [address] [place] [phone] Leo Navarrete DO Altered mental status, [...] - 1.030 04/18/2025 7:41 PM CDT [facility] URINE PH 5.5 5.0 - 9.0 04/18/2025 7:41 PM CDT [facility] WBC ESTERASE Negative Negative 04/18/2025 7:41 PM CDT [facility] NITRITE Negative Negative 04/18/2025 7:41 PM CDT [facility] PROTEIN, RANDOM URINE Trace(A) Negative 04/18/2025 7:41 PM CDT [facility] URINE GLUCOSE, QUAL Negative Negative 04/18/2025 7:41 PM CDT [facility] URINE KETONES Trace(A) Negative 04/18/2025 7:41 PM CDT [facility] UROBILINOGEN 0.2 0.2 , 1.0 , Normal mg/dL 04/18/2025 7:41 PM CDT [facility] URINE BLOOD 2+(A) Negative emerson/ul 04/18/2025 7:41 PM CDT [facility] URINALYSIS COLOR Dark Yellow 04/18/2025 7:41 PM CDT [facility] URINALYSIS CLARITY Clear 04/18/2025 7:41 PM CDT [facility] WBC (Urine) 21-50(A) Negative, 0-5 /hpf 04/18/2025 7:41 PM CDT [facility] URINE RBC'S 3-5(A) Negative, 0-2 /hpf 04/18/2025 7:41 PM CDT [facility] EPITHELIAL CELLS Occasional /lpf 04/18/2025 7:41 PM CDT [facility] BACTERIA, URINE Few(A) Negative /hpf 04/18/2025 7:41 PM CDT [facility] URINE MUCOUS Few 04/18/2025 7:41 PM CDT [facility] Urine URINE SPECIMEN / Unknown Non-Phlebotomy Collection / Unknown 04/18/2025 7:03 PM CDT 04/18/2025 7:09 PM CDT Leo Navarrete DO URINE ORDERABLES Final R esult [facility] [address] [place] [phone], * (ABNORMAL) Urine Drug Screen (04/18/2025 7:03 PM CDT) UR AMPHETAMINE NON DETECTED NON DETECTED 04/18/2025 7:23 PM CDT [facility] Comment: FOR MEDICAL USE ONLY. CUTOFF CONCENTRATION FOR DETECTED RESULT: AMPHETAMINE: 500 NG/ML UR BARBITURATE NON DETECTED NON DETECTED 04/18/2025 7:23 PM CDT [facility] Comment: FOR MEDICAL USE ONLY. CUTOFF CONCENTRATION FOR DETECTED RESULT: BARBITUATES: 200 NG/ML UR BENZODIAZEPINES NON DETECTED NON DETECTED 04/18/2025 7:23 PM CDT [facility] Comment: FOR MEDICAL USE ONLY. CUTOFF CONCENTRATION FOR DETECTED RESULT: BENZODIAZAPINE: 200 NG/ML UR COCAINE METABOLITE NON DETECTED NON DETECTED 04/18/2025 7:23 PM CDT [facility] Comment: FOR MEDICAL USE ONLY. CUTOFF CONCENTRATION FOR DETECTED RESULT: COCAINE: 150 NG/ML UR OPIATES NON DETECTED NON DETECTED 04/18/2025 7:23 PM CDT [facility] Comment: FOR MEDICAL USE ONLY. CUTOFF CONCENTRATION FOR DETECTED RESULT: OPIATES: 300 NG/ML UR PHENCYCLIDINE NON DETECTED NON DETECTED 04/18/2025 7:23 PM CDT [facility] Comment: FOR MEDICAL USE ONLY. CUTOFF CONCENTRATION FOR DETECTED RESULT: PCP: 25 NG/ML UR CANNABINOID DETECTED(A) NON DETECTED 04/18/2025 7:23 PM CDT [facility] Comment: FOR MEDICAL USE ONLY. CUTOFF CONCENTRATION FOR DETECTED RESULT: THC (MARIJUANA): 50 NG/ML Urine Non-Phlebotomy Collection / Unknown 04/18/2025 7:03 PM CDT 04/18/2025 7:09 PM CDT Leo Navarrete DO URINE ORDERABLES Final R esult [facility] [address] [place] [phone], * XR CHEST SINGLE VIEW PORTABLE (04/18/2025 6:34 PM CDT) Anatomical Region Laterality Modality Chest N/A Digital Radiogra phy 04/18/2025 6:34 PM CDT Impressions 04/19/2025 8:32 AM CDT IMPRESSION: No radiographic evidence of acute cardiopulmonary disease. Narrative 04/19/2025 8:32 AM CDT DICTATING PHYSICIAN: Home Vee M.D. - [facility], Later [facility] EXAMINATION: Chest x-ray, 1 view. [...] 04/19/2025 DICTATING PHYSICIAN: Home Vee M.D. - [facility] EXAMINATION: Chest x-ray, 1 view. CLINICAL [...] of acute cardiopulmonary disease. Leo Navarrete DO [facility] ORDERABLE S Final Result * CT HEAD OR BRAIN WO CONTRAST (04/18/2025 6:33 PM CDT) Anatomical Region Laterality Modality Head N/A Computed Tomogra phy 04/18/2025 6:20 PM CDT Impressions 04/19/2025 8:55 AM CDT IMPRESSION:. 1. No acute intracranial abnormality, posttraumatic or otherwise, by noncontrast CT criteria at this time. Preliminary report and any related to communication were provided by of [facility]'s after-hours service, as documented in the medical [...] Negative Negative 04/18/2025 7:25 PM CDT [facility] FLU B Negative Negative 04/18/2025 7:25 PM CDT [facility] RESP SYNC VIRUS Negative Negative, Invalid 04/18/2025 7:25 PM CDT [facility] SARSCOV2 NOT DETECTED (Reference Range for this test is Not Detected) 04/18/2025 7:25 PM CDT [facility] Comment:This test was perfor med by a Reverse Marine Scientist PCR Method. Nasopharyngeal NASOPHARYNGEAL SWAB / Unknown Non-Phlebotomy Collection / Unknown 04/18/2025 6:15 PM CDT 04/18/2025 6:21 PM CDT us Leo Navarrete DO MICROBIOLOGY - GENERAL O RDERABLES Final Result Performing Organization Address [facility]/ZIP Co de Phone Number [facility] [address] [place] [address], * Julio Top Tube (04/18/2025 6:15 PM CDT) Blood Venous Catheter (IV) / Unknown 04/18/2025 6:15 PM CDT 04/18/2025 6:19 PM CDT us Leo Navarrete DO CHEMISTRY ORDERABLES Fin al Result Performing Organization Address [facility]/ZIP Co de Phone Number [facility] [address] [place] [address], * Gold Top Tube (04/18/2025 6:15 PM CDT) Blood Venous Catheter (IV) / Unknown 04/18/2025 6:15 PM CDT 04/18/2025 6:23 PM CDT Leo Navarrete DO CHEMISTRY ORDERABLES Fin al Result Performing Organization Address [facility]/ZIP Co de Phone Number [facility] [address] [place] [address], * Blue Top Tube (04/18/2025 6:15 PM CDT) Blood Venous Catheter (IV) / Unknown 04/18/2025 6:15 PM CDT 04/18/2025 6:23 PM CDT us Leo Navarrete DO HEMATOLOGY ORDERABLES Fi nal Result Performing Organization Address [facility] Co de Phone Number [facility] [address] [place] [address], * (ABNORMAL) CBC with Auto Differential (04/18/2025 6:15 PM CDT) WBC 8.90 4.00 - 12.00 10(3)/mcL 04/18/2025 6:35 PM CDT [facility] RBC 4.96 4.40 - 5.80 10(6)/mcL 04/18/2025 6:35 PM CDT [facility] HEMOGLOBIN (HGB) 15.7 13.0 - 16.5 g/dL 04/18/2025 6:35 PM CDT [facility] HEMATOCRIT (HCT) 44.3 38.0 - 50.0 % 04/18/2025 6:35 PM CDT [facility] MCV 89.3 82.0 - 96.0 fL 04/18/2025 6:35 PM CDT [facility] MCH 31.7 26.0 - 32.0 pg 04/18/2025 6:35 PM CDT [facility] MCHC 35.4 31.0 - 36.0 g/dL 04/18/2025 6:35 PM CDT [facility] PLATELET COUNT 282 140 - 440 10(3)/mcL 04/18/2025 6:35 PM CDT [facility] RDW 13.2 11.8 - 15.5 % 04/18/2025 6:35 PM CDT [facility] MPV 9.5 8.0 - 12.6 fL 04/18/2025 6:35 PM CDT [facility] NEUTROPHILS 74.3(H) 40.0 - 68.0 % 04/18/2025 6:35 PM CDT [facility] LYMPHOCYTES 13.5(L) 19.0 - 49.0 % 04/18/2025 6:35 PM CDT [facility] MONOCYTES 8.7 3.0 - 13.0 % 04/18/2025 6:35 PM CDT [facility] EOSINOPHILS 2.5 0.0 - 8.0 % 04/18/2025 6:35 PM CDT [facility] BASOPHILS 0.8 0.0 - 1.0 % 04/18/2025 6:35 PM CDT [facility] IMMATURE GRANULOCYTE 0.2 0.0 - 0.4 % 04/18/2025 6:35 PM CDT [facility] Comment:Immature Granulocyte s includes Metamyelocytes, Myelocytes, and Promyelocytes. ABSOLUTE NEUTROPHILS 6.62(H) 1.40 - 5.30 10(3)/mcL 04/18/2025 6:35 PM CDT [facility] ABSOLUTE LYMPHOCYTES 1.20 0.90 - 3.30 10(3)/mcL 04/18/2025 6:35 PM CDT [facility] ABSOLUTE MONOCYTES 0.77 0.10 - 0.90 10(3)/mcL 04/18/2025 6:35 PM CDT [facility] ABSOLUTE EOSINOPHIL 0.22 0.00 - 0.50 10(3)/mcL 04/18/2025 6:35 PM CDT [facility] ABSOLUTE BASOPHILS 0.07 0.00 - 0.10 10(3)/mcL 04/18/2025 6:35 PM CDT [facility] ABSOLUTE IMMATURE GRANULOCYTE 0.02 0.00 - 0.03 10 (3) mcL. 04/18/2025 6:35 PM CDT [facility] NRBC PER 100 WBC 0 04/18/20 6:35 PM CDT [facility] Blood Venous Catheter (IV) / Unknown 04/18/2025 6:15 PM CDT 04/18/2025 6:23 PM CDT us Leo Navarrete DO HEMATOLOGY ORDERABLES Fi nal Result Performing Organization Address City/[facility]/ZIP Co de Phone Number [facility] [address] [place] [phone], [place] [phone] * ETOH Level (04/18/2025 6:15 PM CDT) Pathologist [facility] ETHANOL <10 <10 mg/dL 04/18/2025 6:42 PM CDT [facility] Blood Venous Catheter (IV) / Unknown 04/18/2025 6:15 PM CDT 04/18/2025 6:23 PM CDT Narrative [facility] - 04/18/2025 6:42 PM CDT FOR MEDICAL USE ONLY us Leo Navarrete DO CHEMISTRY ORDERABLES Fin al Result Performing Organization Address [facility]/ZIP Co de Phone Number [facility] [address] [place] [phone], [place] [phone] * (ABNORMAL) CMP (04/18/2025 6:15 PM CDT) SODIUM 144 136 - 145 mmol/L 04/18/2025 6:45 PM CDT [facility] POTASSIUM 3.3(L) 3.5 - 5.1 mmol/L 04/18/2025 6:45 PM CDT [facility] CHLORIDE 107 98 - 107 mmol/L 04/18/2025 6:45 PM CDT [facility] CO2, VENOUS 26 22 - 30 mmol/L 04/18/2025 6:45 PM CDT [facility] ANION GAP 11.0 <18.0 mmol/L 04/18/2025 6:45 PM CDT [facility] GLUCOSE 122(H) 70 - 99 mg/dL 04/18/2025 6:45 PM CDT [facility] BUN 18 8 - 26 mg/dL 04/18/2025 6:45 PM CDT [facility] CREATININE, BLOOD 1.18 0.70 - 1.30 mg/dL 04/18/2025 6:45 PM CDT [facility] BUN/CREATININE RATIO 15 12 - 20 ratio 04/18/2025 6:45 PM CDT [facility] TOTAL PROTEIN 7.2 6.0 - 8.0 g/dL 04/18/2025 6:45 PM CDT [facility] ALBUMIN 4.6 3.5 - 5.0 g/dL 04/18/2025 6:45 PM CDT [facility] A/G RATIO 1.8 1.0 - 2.2 04/18/2025 6:45 PM CDT [facility] CALCIUM 9.5 8.7 - 10.5 mg/dL 04/18/2025 6:45 PM CDT [facility] T BILI 0.5 0.2 - 1.2 mg/dL 04/18/2025 6:45 PM T [facility] SGOT (AST) 24 <43 U/L 04/18/2025 6:45 PM CDT [facility] SGPT (ALT) 13 <56 U/L 04/18/2025 6:45 PM CDT [facility] ALKALINE PHOSPHATASE 81 40 - 150 U/L 04/18/2025 6:45 PM CDT [facility] GFR, ESTIMATED >60 >=60 04/18/2025 6:45 PM CDT [facility] Comment: Creatinine Clearance is the preferred criteria for selecting drug dose adjustments in renally impaired patients. The GFR is provided as additional pertinent clinical information. GFR is reported in mL/min/1.73 sq m. Calculation based on the Chronic Kidney Disease Epidemiology Collaboration (CKD- EPI) equation refit without adjustment for race. GFR, EST. >60 >=60 025 6:45 PM CDT [facility] GFR, EST. NONAFRICAN >60 >=60 04/18/2025 6:45 PM CDT [facility] Blood Venous Catheter (IV) / Unknown 04/18/2025 6:15 PM CDT 04/18/2025 6:23 PM CDT us Leo Navarrete DO CHEMISTRY ORDERABLES Fin al Result [facility] [address] [place] [phone], * Blood Culture #2 (04/18/2025 6:13 PM CDT) Only the most recent of2 resultswithin the time period is included. CULTURE RESULTS NO GROWTH WITHIN 5 DAYS, FINAL RESULT 04/23/2025 7:00 PM CDT [facility] Culture BLOOD SPECIMEN / Unknown Venous Catheter (IV) / Unknown 04/18/2025 6:13 PM CDT 04/18/2025 6:22 PM CDT us Leo Navarrete DO MICROBIOLOGY - GENERAL O RDERABLES Final Result [facility] [address] [place] [address] from Last 3 Months Insurance MEDICARE C [employer] Care Teams Pricing Specialist Relationship Specialty Start Date End Date Provider, None [place] PCP - General 04/18/25
--- OUTSIDE RECORDS SUMMARY | 2025-05-09 15:37 | XMS_ITS | Clinical Summary ---
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
--- OUTSIDE RECORDS SUMMARY | 2025-05-09 15:37 | XMS_ITS | Encounter Summary ---
Author Organization [facility] Address 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 Gender Identity Not on file Sexual [...] HEMATOCRIT 28.8(L) 40.0 - 48.0 % [facility] HEMOGLOBIN 9.3(L) 13.6 - 16.5 g/dL [facility] Blood specimen (specimen) 01/10/2008 5:54 AM CDT 01/10/2008 7:00 AM CDT us Govind Sotelo MD HEMATOLOGY ORDERABLES Final Result [facility] [address] [place] [address] * HEMOGLOBIN AND HEMATOCRIT (12/25/2007 10:57 AM CDT) HEMATOCRIT 46.3 40.0 - 48.0 % [facility] HEMOGLOBIN 15.6 13.6 - 16.5 g/dL [facility] Blood specimen (specimen) 12/25/2007 10:57 AM CDT 12/25/2007 11:58 AM CDT us Govind Sotelo MD HEMATOLOGY ORDERABLES Final Result [facility] [address] [place] [address] * (ABNORMAL) BASIC METABOLIC PANEL (12/25/2007 10:57 AM CDT) CHLORIDE 100 96 - 108 mmol/L [facility] GLUCOSE 124(H) 65 - 99 mg/dL [facility] SODIUM 140 135 - 145 mmol/L [facility] CALCIUM 9.6 8.4 - 10.2 mg/dL [facility] CO2 28 22 - 30 mmol/L [facility] CREATININE 0.86 0.67 - 1.17 mg/dL [facility] POTASSIUM 3.9 3.5 - 4.9 mmol/L [facility] BUN 10 6 - 20 mg/dL [facility] GFR, >60 >=60 mL/min/1. 7 sq meter [facility] GFR >60 >=60 mL/min/1. 7 sq meter [facility] Comment: Estimated GFR rate interpretative information for both Americans and non- Americans is available on the [facility] Intranet at: [email or web address] Select: Lab Policies and Procedures Select: Reference Ranges - GFR Blood specimen (specimen) 12/25/2007 10:57 AM CDT 12/25/2007 11:58 AM CDT us Govind Sotelo MD CHEMISTRY ORDERABLES Edited [facility] [address] [place] [address] documented in this encounter Visit Diagnoses Diagnosis Osteoarthrosis, unspecified whether generalized or localized, lower leg documented in this encounter
--- OUTSIDE RECORDS SUMMARY | 2025-05-09 15:37 | XMS_ITS | Encounter Summary ---
Author Organization [facility] Address 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
[2025-05-09] MEDS: LACTATED RINGERS 1,000 ML 125 ML IV CONT ×2 (15:43→23:03)
--- NOTE | 2025-05-09 15:57 | ADMGEN ---
This patient, Giancarlo Clark Jr., was admitted to [facility] Surg Room 333-01. Patient/family oriented to hospital policies and general routines including ID bracelet, bed and alarms, visiting hours, pain management, procedures, bathroom and other care routines, personal items, smoking policy, room service/diet, and visiting hours. Information on how to activate the Rapid Response Team has been discussed. Patient/Family are encouraged to report perceived risks to care and to ask questions if they do not understand what they are told or what they should do.
[2025-05-09 16:39] LABS: Vitamin B12 530.0 pg/mL (239-931)
[2025-05-09 17:27] LABS: Iron 23 ug/dL (49-181)
[2025-05-09 17:38] LABS: Percent Iron Saturation 9 % (20-50)
[2025-05-09 18:04] LABS: Ferritin 108.00 ng/mL (11.1-264)
[2025-05-09] MEDS: LACOSAMIDE (*CRX) 200 MG TABLET PO (23:01)
[2025-05-09] MEDS: APIXABAN 5 MG TABLET PO (23:01)
[2025-05-10] VITALS (9 sets, daily range): BP systolic 120–144; BP diastolic 50–66; PULSE 59–92; RESP 16–18; TEMP 36.4–37.6; O2SAT 98–99
[2025-05-10 06:19] LABS: Hematocrit 29.4 % (42.0-52.0); Hemoglobin 10.0 g/dL (14.0-18.0); Mean Corpuscular HGB Conc 34.0 g/dl (32-36); Mean Corpuscular Hemoglobin 31.3 pg (26-34); Mean Corpuscular Volume 92.2 fl (80-100); Platelet Count Result 258 k/mm3 (150-375); Red Blood Count 3.19 M/mm3 (4.6-6.20); White Blood Count 27.5 K/mm3 (4.5-10.0)
[2025-05-10 06:50] LABS: Alanine Aminotransferase 17 U/L (6-50); Albumin Level 3.1 g/dL (3.5-5.1); Alkaline Phosphatase 67 U/L (38-126); Anion Gap 7 mmol/L (4-12); Aspartate Amino Transferase 30 U/L (17-59); Bilirubin,Total 0.9 mg/dL (0.2-1.3); Blood Urea Nitrogen 15 mg/dL (9-20); Calcium 8.2 mg/dL (8.4-10.2); Carbon Dioxide 23 mmol/L (22-30); Chloride 104 mmol/L (98-107); Estimated CRCL calculation 65 ml/min; Estimated Glomerular Filt Rate > 60; Glucose 122 mg/dL (65-110); Potassium 3.3 mmol/L (3.4-5.0); Sodium 134 mmol/L (137-145); Total Protein 5.5 g/dL (6.3-8.2)
[2025-05-10 07:45] LABS: Band Neutrophils Percent 10 % (0-6); Lymphocytes Absolute Manual 0.82 K/mm3 (1.1-4.5); Lymphocytes Percent Manual 3 % (18-44); Monocytes Absolute Manual 0.55 K/mm3 (0.1-0.90); Monocytes Percent Manual 2 % (3-9); Neutrophils Absolute Manual 26.12 K/mm3 (1.3-6.7); Neutrophils Percent Manual 85 % (46-73); Total Cells Counted 100
[2025-05-10 07:46] LABS: Schistocytes None Seen
[2025-05-10 07:51] LABS: Anisocytosis Occasional
[2025-05-10 07:52] LABS: Ovalocytes 1+
--- NOTE | 2025-05-10 07:58 | P.PNIM_ITS ---
Progress Note: A&P Assessment and Plan (1) Sepsis: Code(s): A41.9 - Sepsis, unspecified organism Status: Acute Assessment and Plan: - sepsis present on admission as evidenced by tachycardia, tachypnea, leukocyt osis - BP stable, LA WNL - source: UTI with possible prostatitis - received 1L bolus in ED followed by LR 125cc/hr overnight - management of UTI as below (2) AMS (altered mental status): Qualifiers: Altered mental status type: delirium Qualified Code(s): R41.0 - Disori entation, unspecified Code(s): R41.82 - Altered mental status, unspecified Status: Acute Assessment and Plan: - Head CT, 05/09 with no acute process, old lacunar infarcts in the R basal ganglia and coronal radiata of the bilateral frontal and right parietal lobes. Age-related changes. - recent dx of CVA on 04/23. MRI showed a small acute infarct at the genu of the right corpus callosum and several old lacunar infarcts at the right basal ganglia and right frontal and parietal lobe dobbins radiata. -developed agitation during last admission, thought to be secondary to CVA vs. side effect of Keppra so was transitioned to Lacosamide - UDS + for cannabis 04/22 - UA consistent with UTI - suspect worsening mental status secondary to acute UTI/prostatitis. Management as below. - If no improvement with treatment, consider neurology re-evaluation. (3) UTI (urinary tract infection): Qualifiers: Hematuria presence: without hematuria Urinary tract infection type: acute cystitis Qualified Code(s): N30.00 - Acute cystitis without hematuria Code(s): N39.0 - Urinary tract infection, site not specified Status: Acute Assessment and Plan: - UA: Cloudy, 1+ protein, 1+ ketones, 3+ blood, 3+ leuk esterase, 21-50 RBC, greater than 100 WBC, WBC clumps present, no epithelial - concern for prostatitis per CT - UCx pending - no previous micro urine available for review - leukocytosis increasing. Afebrile. Otherwise nonseptic. (4) Prostatitis: Qualifiers: Prostatitis type: acute Qualified Code(s): N41.0 - Acute prostatitis Code(s): N41.9 - Inflammatory disease of prostate, unspecified Status: Acute Assessment and Plan: - CT showed indicators of prostatitis - started on ceftriaxone on 05/09 -urology consulted (5) Anemia: Qualifiers: Anemia type: unspecified type Qualified Code(s): D64.9 - Anemia, unspecified Code(s): D64.9 - Anemia, unspecified Status: Acute Assessment and Plan: - Hgb 12.3 upon admission on 05/09. 15.7 at discharge on 04/29. - check iron, TIBC, ferritin, B12, folic acid, and stool guaiac. - TSH 3.23 on 04/28 - transfuse if <7 - trend H&H - of note, recently started on Eliquis and Plavix secondary to acute stroke earlier this month (6) History of CVA (cerebrovascular accident): Code(s): Z86.73 - Personal history of transient ischemic attack (TIA), and cerebral infarction without residual deficits Status: Chronic Assessment and Plan: - Brain MRI, 04/23 with small acute infarct at the genu of the right corpus callosum, several old lacunar infarcts, multiple small foci of susceptibility artifact scattered throughout the brain including the cerebral hemispheres, midbrain and cerebellum consistent with chronic microhemorrhage typically seen in the setting of hypertension but can also be seen with amyloid angiopathy. -worsening AMS likely secondary to UTI, however could be sequela of recent CVA. started on abx, monitor response. - discussed with Dr. Miguel falk to stop ASA, Plavix as patient was found to have Afib on last admission. Continue Eliquis. (7) Seizure disorder: Code(s): G40.909 - Epilepsy, unspecified, not intractable, without status epilepticus Status: Chronic Assessment and Plan: - continue lacosamide (switched from Keppra due to agitation on last admit) (8) Atrial fibrillation: Qualifiers: Atrial fibrillation type: unspecified chronic Qualified Code(s): I48.20 - Chronic atrial fibrillation, unspecified Code(s): I48.91 - Unspecified atrial fibrillation Status: Chronic Assessment and Plan: - continue home medications: Metoprolol, Eliquis (9) Hyperglycemia: Code(s): R73.9 - Hyperglycemia, unspecified Status: Chronic Assessment and Plan: - glucose 184 upon admission - A1C 5.9% on 04/25/25 (10) Hypertension: Qualifiers: Hypertension type: essential hypertension Qualified Code(s): I10 - Essential (primary) hypertension Code(s): I10 - Essential (primary) hypertension Status: Chronic Assessment and Plan: - chronic, currently 123/50 - continue home medications: Lisinopril, metoprolol - monitor Plan DVT Prophylaxis: Eliquis Disposition: TBD Code Status: Full code Subjective Date/time seen: 05/10/25 07:58 Interval history: 69 y/o M with PMH of recent CVA, atrial fibrillation, and HTN presents here with AMS. Patient seen and examined at bedside. Alert and oriented to self, knows he's in the hospital, knows the year and president. Confused to month and situation. Calmer this AM. Denies urinary symptoms. Review of Systems Review of Systems: All systems reviewed & are unremarkable except as noted in HPI and below Exam Narrative: General: NAD, disheveled Eyes: EOMI ENT: neck supple Cardiovascular: Regular rate and rhythm Respiratory: Clear to auscultation, respirations even and unlabored on RA Gastrointestinal: Soft, non tender Genitourinary: no suprapubic tenderness Musculoskeletal: No edema Skin: warm, dry Neuro: Alert. Psych: Mood appropriate Objective Data Vital Signs Vital Signs: Vital Signs - 24 hr 05/09/25 09:57 05/09/25 10:04 05/09/25 10:05 Temperature Pulse Rate 169 H 125 H 169 H Respiratory Rate 36 H 37 H 30 H Blood Pressure 169/98 H 169/98 H Pulse Oximetry 99 98 99 Oxygen Delivery Room Air 05/09/25 10:15 05/09/25 10:15 05/09/25 10:16 Temperature Pulse Rate 169 H 168 H 168 H Respiratory Rate 31 H 24 H Blood Pressure 105/70 Pulse Oximetry 99 98 Oxygen Delivery 05/09/25 10:17 05/09/25 10:18 05/09/25 10:20 Temperature Pulse Rate 165 H 160 H Respiratory Rate 15 32 H Blood Pressure 103/66 103/74 Pulse Oximetry 99 100 Oxygen Delivery Room Air 05/09/25 10:30 05/09/25 10:31 05/09/25 10:32 Temperature 101 F H Pulse Rate 106 H 107 H 107 H Respiratory Rate 34 H 32 H 34 H Blood Pressure 148/74 H Pulse Oximetry 98 98 97 Oxygen Delivery 05/09/25 10:45 05/09/25 10:46 05/09/25 10:47 Temperature Pulse Rate 106 H 108 H 106 H Respiratory Rate 29 H 16 27 H Blood Pressure 127/70 Pulse Oximetry Oxygen Delivery 05/09/25 10:58 05/09/25 11:00 05/09/25 11:01 Temperature Pulse Rate 144 H 108 H 106 H Respiratory Rate 32 H 19 Blood Pressure 122/66 Pulse Oximetry Oxygen Delivery 05/09/25 11:15 05/09/25 11:16 05/09/25 11:38 Temperature 99.1 F Pulse Rate 157 H 155 H 105 H Respiratory Rate 23 H 24 H 25 H Blood Pressure 123/80 Pulse Oximetry Oxygen Delivery 05/09/25 12:09 05/09/25 12:15 05/09/25 13:22 Temperature Pulse Rate 138 H 141 H 94 Respiratory Rate 21 H 29 H 26 H Blood Pressure Pulse Oximetry 97 96 100 Oxygen Delivery 05/09/25 13:30 05/09/25 15:56 05/09/25 16:08 Temperature 98.5 F Pulse Rate 148 H 148 H 92 Respiratory Rate 29 H 29 H 18 Blood Pressure 109/48 L Pulse Oximetry 99 99 100 Oxygen Delivery Room Air 05/09/25 17:06 05/09/25 20:00 05/09/25 20:00 Temperature Pulse Rate 90 68 Respiratory Rate Blood Pressure Pulse Oximetry Oxygen Delivery Room Air 05/09/25 22:00 05/10/25 00:00 05/10/25 04:00 Temperature 97.8 F Pulse Rate 69 65 59 L Respiratory Rate 20 Blood Pressure 97/58 L Pulse Oximetry 97 Oxygen Delivery 05/10/25 06:00 Temperature 97.6 F Pulse Rate 60 Respiratory Rate 16 Blood Pressure 123/50 L Pulse Oximetry 99 Oxygen Delivery Intake/Output Intake/Output: Intake & Output 05/07/25 05/08/25 05/09/25 05/10/25 23:59 23:59 23:59 23:59 Intake Total 3096.7 300 Balance 3096.7 300 Meds/Results Medications: Active Medications Generic Name Dose Route Start Last Admin Trade Name Freq PRN Reason Stop Dose Admin Acetaminophen 650 mg 05/09/25 13:23 Acetaminophen 325 Mg Tablet PO Q6H PRN Pain Rated 1-3 Apixaban 5 mg 05/09/25 22:35 05/09/25 23:01 Apixaban 5 Mg Tablet PO 5 mg Q12HR JUSTINA Administration Aspirin 81 mg 05/10/25 09:00 Aspirin 81 Mg Enteric Tablet PO QAM COUNTS INCLUDE 234 BEDS AT THE [facility] Atorvastatin Calcium 40 mg 05/10/25 09:00 Atorvastatin 40 Mg Tablet PO DAILY COUNTS INCLUDE 234 BEDS AT THE [facility] Bupropion HCl 150 mg 05/10/25 09:00 Bupropion Hcl Xl (24 Hr) 150 Mg Tabcr PO DAILY COUNTS INCLUDE 234 BEDS AT THE [facility] Clopidogrel Bisulfate 75 mg 05/10/25 09:00 Clopidogrel Bisulfate 75 Mg Tablet PO QAM COUNTS INCLUDE 234 BEDS AT THE [facility] Donepezil HCl 10 mg 05/10/25 09:00 Donepezil Hcl 10 Mg Tablet PO DAILY JUSTINA Lactated Ringer's 1,000 mls @ 125 mls/hr 05/09/25 13:20 05/09/25 23:03 Lr - Lactated Ringers Iv IV CONT 125 mls/hr .Q8H JUSTINA Administration Ceftriaxone Sodium 1 gm/ 50 mls @ 100 mls/hr 05/10/25 12:00 Sodium Chloride IVPB Q24H COUNTS INCLUDE 234 BEDS AT THE [facility] Lacosamide 200 mg 05/09/25 22:35 05/09/25 23:01 Lacosamide (*Crx) 200 Mg Tablet PO 200 mg Q12HR JUSTINA Administration Lisinopril 40 mg 05/10/25 09:00 Lisinopril 20 Mg Tablet PO QAM JUSTINA Metoprolol Succinate 50 mg 05/10/25 09:00 Metoprolol Succinate Ext Rel 50 Mg Tabcr PO DAILY COUNTS INCLUDE 234 BEDS AT THE [facility] Ondansetron HCl 4 mg 05/09/25 13:24 Ondansetron Hcl Odt 4 Mg Tablet PO Q4H PRN Nausea And Vomiting Radiology Results: ITS Impressions Head CT 05/09/25 12:10 IMPRESSION: 1. Few old lacunar infarcts in the right basal ganglia and in the coronal radiata of the bilateral frontal and right parietal lobes. No acute intracranial process. 2. Age-related changes including mild to moderate diffuse volume loss and extensive scattered white matter hypoattenuation consistent with chronic small vessel ischemic disease. Chest/Abdomen/Pelvis CT 05/09/25 12:34 IMPRESSION: 1. Prostatomegaly with surrounding from trace stranding also extending around the bilateral seminal vesicles which raises concern for prostatitis. 2. No acute cardiopulmonary disease or other acute intra-abdominal/pelvic process. Labs Labs: Laboratory Results - last 24 hr 05/09/25 05/09/25 05/10/25 10:44 15:10 06:08 WBC 21.2 H 27.5 H RBC 3.87 L 3.19 L Hgb 12.3 L D 10.0 L Hct 34.3 L 29.4 L MCV 88.6 92.2 MCH 31.8 31.3 MCHC 35.9 34.0 RDW 13.2 13.8 Plt Count 317 258 MPV 9.2 9.1 Immature Gran % (Auto) 0.6 H Not Reportable Neut % (Auto) 96.9 H Not Reportable Lymph % (Auto) 1.1 L Not Reportable Cache % (Auto) 1.2 L Not Reportable Eos % (Auto) 0.0 Not Reportable Baso % (Auto) 0.2 Not Reportable Lymph # (Auto) 0.24 L Not Reportable Cache # (Auto) 0.3 Not Reportable Eos # (Auto) 0.0 Not Reportable Baso # (Auto) 0.0 Not Reportable Abs Immat Gran (auto) 0.13 H Not Reportable Absolute Neuts (auto) 20.6 H Not Reportable Absolute Nucleated RBC 0.000 Not Reportable Total Counted 100 Neutrophils % (Manual) 85 H Band Neutrophils % Not Reportable 10 H Lymphocytes % (Manual) 3 L Monocytes % (Manual) 2 L Nucleated RBC % 0.0 Not Reportable Abs Neuts (Manual) 26.12 H Abs Lymphs (Manual) 0.82 L Abs Monocytes (Manual) 0.55 Platelet Estimate Adequate Adequate Polychromasia Occasional Hypochromasia Occasional Anisocytosis Occasional Ovalocytes 1+ Schistocytes None seen None seen PT 16.1 H INR 1.3 APTT 28.3 Sodium 132 L 134 L Potassium 3.5 3.3 L Chloride 100 104 Carbon Dioxide 23 23 Anion Gap 9 7 BUN 16 15 Creatinine 0.87 0.87 Estim Creat Clear Calc Not Reportable 65 Estimated GFR > 60 > 60 Glucose 184 H 122 H Lactic Acid 1.6 Calcium 9.0 8.2 L Iron 23 L TIBC 262 L % Saturation 9 L Ferritin 108.00 Total Bilirubin 1.3 0.9 AST 30 30 ALT 22 17 Alkaline Phosphatase 91 67 Troponin I < 0.012 Total Protein 6.7 5.5 L Albumin 4.2 3.1 L Vitamin B12 530.0 Folate 7.5 Urine Color Yellow Urine Appearance Cloudy H Urine pH 6.5 Ur Specific [place] 1.012 Urine Protein 1+ H Urine Glucose (UA) Negative Urine Ketones 1+ H Ur Blood (Man) 3+ H Urine Nitrate Negative Urine Bilirubin Negative Urine Urobilinogen 1.0 Add Ur Microanalysis Reviewed Leukocyte Esterase Rfl 3+ H Urine RBC 21-50 H Urine WBC >100 H Urine WBC Clumps Present H Ur Squamous Epith Cells None seen Urine Bacteria 2+ H Urine Casts 6-10 Quality VTE Prophylaxis VTE prophylaxis: pharmacologic ordered
[2025-05-10] MEDS: LACTATED RINGERS 1,000 ML 125 ML IV CONT (08:51)
[2025-05-10] MEDS: CLOPIDOGREL BISULFATE 75 MG TABLET PO (08:52)
[2025-05-10] MEDS: ASPIRIN 81 MG ENTERIC TABLET PO (08:52)
[2025-05-10] MEDS: ATORVASTATIN 40 MG TABLET PO (08:52)
[2025-05-10] MEDS: DONEPEZIL HCL 10 MG TABLET PO (08:52)
[2025-05-10] MEDS: LACOSAMIDE (*CRX) 200 MG TABLET PO ×2 (08:52→20:48)
[2025-05-10] MEDS: buPROPion HCL XL (24 HR) 150 MG TABCR PO (08:52)
[2025-05-10] MEDS: METOPROLOL SUCCINATE EXT REL 50 MG TABCR PO (08:53)
[2025-05-10] MEDS: APIXABAN 5 MG TABLET PO ×2 (08:53→20:48)
[2025-05-10] MEDS: cefTRIAXone 1 GM in SODIUM CHLORIDE 0.9% IV 50 ML 100 ML IVPB (13:31)
--- NOTE | 2025-05-10 15:03 | P.CONUR_ITS ---
Assessment and Plan Assessment and plan (1) Prostatitis: Qualifiers: Prostatitis type: acute Qualified Code(s): N41.0 - Acute prostatitis Code(s): N41.9 - Inflammatory disease of prostate, unspecified Status: Acute (2) UTI (urinary tract infection): Qualifiers: Hematuria presence: without hematuria Urinary tract infection type: a cute cystitis Qualified Code(s): N30.00 - Acute cystitis without hematuria Code(s): N39.0 - Urinary tract infection, site not specified Status: Acute Plan Mr. Clark is a 69-year-old male admitted with sepsis secondary to acute prostatitis and a urinary tract infection, contributing to his altered mental status. Imaging confirms significant prostatic inflammation, and he is at risk for urinary retention. His urine and blood cultures are currently pending on empiric IV ceftriaxone. His presentation is complicated by his recent CVA. - Place indwelling Viera catheter for bladder decompression due to severe prostatitis and risk of urinary retention. Counseled patient on the importance of not pulling the catheter. - Continue culture-directed antibiotics. Plan for a 28-day course of antibiotics to ensure adequate treatment of prostatitis. - Await urine and blood culture results to guide further antibiotic therapy. - Urology will plan to follow along. Case discussed with Dr. Coppola Urology Consult Note HPI Date Seen: 05/10/25 Requesting Physician: Kofi Carmona MD Primary Care Provider: Zia Francisco MD Consult Narrative Reason for consult: Prostatitis Narrative: Mr. Clark is a 69 year old male admitted 05/09/2025 with fever, nausea, and altered mental status, found to have a urinary tract infection, prostatitis, and sepsis. He reports urinary burning but denies other specific symptoms like back pain or scrotal tenderness. Past medical history is significant for a recent CVA in early April 2025, atrial fibrillation, hypertension, hyperlipidemia, and seizure disorder. He has no prior urologic history, including kidney stones or BPH medications. His allergies include an anaphylactic reaction to Penicillins. Significant home medications include Eliquis, Plavix, and aspirin. He is currently on IV antibiotics. 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 PERTINENT LABS: - 05/10/2025 - WBC 27.5, HGB 10.0, Cr 0.87 - 05/09/2025 - WBC 21.2, HGB 12.3, Plt 317, Cr 0.87 - 05/09/2025 - Urinalysis: Cloudy, 3+ LE, 3+ blood, 1+ protein, 1+ ketones, 21- 50 RBC, >100 WBC, 2+ bacteria, WBC clumps present. - 04/25/2025 - A1c 5.9% - Urine and blood cultures are pending. PERTINENT IMAGING: - 05/09/2025 CT CHEST ABDOMEN PELVIS W CON ([facility]) - Prostatomegaly (5.3 x 4.8 cm) with surrounding stranding extending around the bilateral seminal vesicles concerning for prostatitis. No other acute intra-abdominal/pelvic process. Review of Systems 2 Review of Systems: ROS unobtainable: Yes unobtainable due to mental status [facility] Past Medical History Medical History (Updated 05/09/25 @ 14:36 by Zo Thayer) Atrial fibrillation Seizure disorder Hyperlipidemia Acute cerebrovascular accident Encounter for screening for cardiovascular disorders Hyperglycemia Hypertension Surgical History Surgical History History of bilateral knee replacement History of orthopedic surgery Right upper extremity reconstruction Family History Family History Mother Family history of diabetes mellitus in first degree relative Sibling Carcinoma of colon Uterine cancer Social History Social History Smoking packs per day: 0.5 Smoking cigarettes per day: 10.0 Years smoked: 15 Smoking pack-years: 7.50 Smoking status: Former smoker Second hand tobacco smoke exposure: Yes Alcohol intake: former Substance use: current Substance use type: marijuana Other substance usage details: 3x weekly Last use: today Do You Feel Safe in your Home?: Yes Lack of Transportation: No Lack of Food: Never True Current Housing: I Have Housing Concerned About Future Housing: No Difficulty Paying Gas/Electric Bills: No Difficulty Paying for Meds: No Currently Unemployed: No Education: High School Diploma/GED Difficulty w/ Childcare or Family Care: No Living arrangements: with family Spiritual care concerns: No Meds Home Medications and Allergies Home Medications ?Medication ?Instructions ?Recorded ?Confirmed ?Type metoprolol succinate 50 mg 50 mg PO DAILY #90 tabs 07/0905/09/25 Rx tablet,extended release 24 hr acetaminophen 500 mg tablet 1,000 mg (2 x 500 mg) PO Q 6H PRN 12/28/24 05/09/25 Rx (Tylenol Extra Strength) pain #50 tabs aspirin 81 mg tablet,delayed 81 mg PO QAM 30 days #30 tabs 04/25/25 05/09/25 Rx release atorvastatin 40 mg tablet 40 mg PO DAILY 30 days #30 t abs 04/25/25 05/09/25 Rx clopidogrel 75 mg tablet 75 mg PO QAM 30 days #30 tab s 04/25/25 05/09/25 Rx apixaban 5 mg tablet (Eliquis) 5 mg PO Q12HR #60 tabs 04/29/25 05/09/25 Rx lisinopril 20 mg tablet 40 mg (2 x 20 mg) PO QAM #30 tabs 04/29/25 05/09/25 Rx bupropion HCl 150 mg 24 hr tablet, 150 mg PO DAILY #90 tabs 05/03/25 05/09/25 Rx extended release (Wellbutrin XL) donepezil 10 mg tablet (Aricept) 10 mg PO DAILY #90 ta bs 05/03/25 05/09/25 Rx lacosamide 100 mg tablet 200 mg PO Q12H 05/09/2504/16 History Allergies Allergy/AdvReac Type Severity Reaction Status Date / Time Penicillins Allergy Unknown Anaphylaxis Verified 05/09/25 15:57 Vital Signs Vital Signs - 24 hr 05/09/25 15:56 05/09/25 16:08 05/09/25 17:06 Temperature 98.5 F Pulse Rate 148 H 92 90 Respiratory Rate 29 H 18 Blood Pressure 109/48 L Pulse Oximetry 99 100 Oxygen Delivery Room Air 05/09/25 20:00 05/09/25 20:00 05/09/25 22:00 Temperature 97.8 F Pulse Rate 68 69 Respiratory Rate 20 Blood Pressure 97/58 L Pulse Oximetry 97 Oxygen Delivery Room Air 05/10/25 00:00 05/10/25 04:00 05/10/25 06:00 Temperature 97.6 F Pulse Rate 65 59 L 60 Respiratory Rate 16 Blood Pressure 123/50 L Pulse Oximetry 99 Oxygen Delivery 05/10/25 08:15 05/10/25 08:53 Temperature Pulse Rate 68 Respiratory Rate Blood Pressure Pulse Oximetry Oxygen Delivery Room Air Exam 2 Narrative: General: The patient is well-developed in no acute distress. Appears comfortable on exam. HEENT: Normocephalic, normal ear and nose structures Skin: Warm, dry, with no lesions seen on visible skin Lungs: Normal respiratory effort Heart: Appears well perfused Abdomen: Nondistended Suprapubic area: Nondistended Extremities: Upper with no deformities. Lower - no edema Neurologic: The patient is oriented to person. Easily redirected. Normal mood and affect. Results Labs 05/10/25 06:08 05/10/25 06:08 Labs: Short CBC 05/10/25 Range/Units 06:08 WBC 27.5 H (4.5-10.0) K/mm3 Hgb 10.0 L (14.0-18.0) g/dL Hct 29.4 L (42.0-52.0) % Plt Count 258 (150-375) k/mm3 BMP 05/10/25 06:08 Sodium 134 L Potassium 3.3 L Chloride 104 Carbon Dioxide 23 BUN 15 Creatinine 0.87 Glucose 122 H Calcium 8.2 L Liver Function 05/10/25 Range/Units 06:08 Total Bilirubin 0.9 (0.2-1.3) mg/dL AST 30 (17-59) U/L ALT 17 (6-50) U/L Alkaline Phosphatase 67 (38-126) U/L Albumin 3.1 L (3.5-5.1) g/dL
[2025-05-10] MEDS: CIPROFLOXACIN 400 MG/D5W 200ML 200 ML 200 MG IVPB ×2 (16:13→22:03)
[2025-05-10] MEDS: POTASSIUM CHLORIDE 20 MEQ PACKET (FOR LIQUID) PO (16:14)
--- NOTE | 2025-05-10 23:56 | PM.EVENT ---
Event Note Event Note Event Note: I was contacted because patient was exhibiting significant anxiety regarding the presence of Viera catheter and he was not easily redirected. I saw patient and he was very anxious so I ordered Zyprexa 10 oral. Before medication was given patient pulled out his Viera catheter with balloon still inflated. He is on Eliquis so he moderate amount bleeding and complaint of discomfort. While getting him to shower and clean nursing staff administered Zyprexa. Patient responded quite quickly to the medication and became drowsy while in the shower. He was placed into wheelchair and then placed back into bed. He rested for less than 2 hours and woke again very anxious hollering out and climbing out of bed. This ordered mg Ativan oral and 100 mg of Seroquel oral. This morning at 6:45 a.m. patient had 800 mL retained urine on bladder scan. I instructed to replace Viera catheter if possible and no new orders for physical restraints. [id number] completed. Discussed patient case/concerns with oncoming daytime Hospitalist including concern that patient may need transfer to ICU and Precedex drip.
[2025-05-11] VITALS (12 sets, daily range): BP systolic 88–139; BP diastolic 56–86; PULSE 100–140; RESP 16–20; TEMP 36.4–37.8; O2SAT 96–100
--- NOTE | 2025-05-11 00:51 | PC.NURSE ---
RN was notified that patient has pulled out indwelling meyer catheter. Patient is AO to self. Unable to educate patient due to alert status but reinforced to not bother the catheter. Prior to pulling out catheter patient was given Zyprexa to help relax patient from fidgeting with items. Balloon was intact when dislodged. Patient was profusely bleeding. Notified Urology public relations officer Dr. Chen of incident , orders to insert meyer if patient unable to void. Spoke with CYCLE CONSULTANT Kenrick Ferrera, new orders received to make patient NPO for possible procedure and routine orders for PT/INR with daily labs.
[2025-05-11] MEDS: LORazepam (*CRX) 1 MG TABLET PO (03:01)
[2025-05-11 06:42] LABS: Hematocrit 30.2 % (42.0-52.0); Hemoglobin 10.9 g/dL (14.0-18.0); Immature Granulocyte Percent A 1.9 % (0-0.5); Lymphocytes Absolute Auto 0.45 K/mm3 (0.9-3.2); Mean Corpuscular HGB Conc 36.1 g/dl (32-36); Mean Corpuscular Hemoglobin 32.1 pg (26-34); Mean Corpuscular Volume 88.8 fl (80-100); Nucleated Red Blood Cells Absolute Auto 0.000 K/mm3 (0.0-0.012); Nucleated Red Blood Cells Perc 0.0 % (0.0-0.2); Platelet Count Result 258 k/mm3 (150-375); Red Blood Count 3.40 M/mm3 (4.6-6.20); White Blood Count 25.1 K/mm3 (4.5-10.0)
[2025-05-11 06:57] LABS: INR 1.6; Prothrombin Time 19.1 Seconds (11.1-14.7)
[2025-05-11 06:58] LABS: Alanine Aminotransferase 24 U/L (6-50); Albumin Level 3.5 g/dL (3.5-5.1); Alkaline Phosphatase 89 U/L (38-126); Anion Gap 11 mmol/L (4-12); Aspartate Amino Transferase 40 U/L (17-59); Bilirubin,Total 1.0 mg/dL (0.2-1.3); Blood Urea Nitrogen 14 mg/dL (9-20); Calcium 8.6 mg/dL (8.4-10.2); Carbon Dioxide 20 mmol/L (22-30); Chloride 102 mmol/L (98-107); Estimated CRCL calculation 58 ml/min; Estimated Glomerular Filt Rate > 60; Glucose 201 mg/dL (65-110); Potassium 2.9 mmol/L (3.4-5.0); Sodium 133 mmol/L (137-145); Total Protein 6.3 g/dL (6.3-8.2)
--- NOTE | 2025-05-11 07:47 | P.PNIM_ITS ---
Progress Note: A&P Assessment and Plan (1) Sepsis: Code(s): A41.9 - Sepsis, unspecified organism Status: Acute Assessment and Plan: * sepsis present on admission as evidenced by tachycardia, tachypnea, leukocyto sis * BP stable, LA WNL * source: UTI with possible prostatitis * received 1L bolus in ED followed by LR 125cc/hr overnight * management of UTI as below * Blood and urine cultures still pending (2) AMS (altered mental status): Qualifiers: Altered mental status type: delirium Qualified Code(s): R41.0 - Disorientation, unspecified Code(s): R41.82 - Altered mental status, unspecified Status: Acute Assessment and Plan: * Head CT, 05/09 with no acute process, old lacunar infarcts in the R basal ganglia and coronal radiata of the bilateral frontal and right parietal lobes. Age-related changes. * recent dx of CVA on 04/23. MRI showed a small acute infarct at the genu of the right corpus callosum and several old lacunar infarcts at the right basal ganglia and right frontal and parietal lobe dobbins radiata. * developed agitation during last admission, thought to be secondary to CVA vs. side effect of Keppra so was transitioned to Lacosamide * UDS + for cannabis 04/22 * UA consistent with UTI * suspect worsening mental status secondary to acute UTI/prostatitis. Management as below. * If no improvement with treatment, consider neurology re-evaluation. (3) UTI (urinary tract infection): Qualifiers: Hematuria presence: without hematuria Urinary tract infection type: acute cystitis Qualified Code(s): N30.00 - Acute cystitis without hematuria Code(s): N39.0 - Urinary tract infection, site not specified Status: Acute Assessment and Plan: * UA: Cloudy, 1+ protein, 1+ ketones, 3+ blood, 3+ leuk esterase, 21-50 RBC, greater than 100 WBC, WBC clumps present, no epithelial * concern for prostatitis per CT * UCx pending * no previous micro urine available for review * leukocytosis increasing. Afebrile. Otherwise nonseptic. * IV Ciprofloxacin (4) Prostatitis: Qualifiers: Prostatitis type: acute Qualified Code(s): N41.0 - Acute prostatitis Code(s): N41.9 - Inflammatory disease of prostate, unspecified Status: Acute Assessment and Plan: * CT showed indicators of prostatitis * started on ceftriaxone on 05/09 * urology consulted * Stat cystoscopy with clot evacuation and complex Viera catheter insertion * During operation, significant blood clot in obvious injury to the membrano us urethra, [address] placed. * Continues bladder irrigation started * Now on Ciprofloxacin IV (5) Anemia: Qualifiers: Anemia type: unspecified type Qualified Code(s): D64.9 - Anemia, unspecified Code(s): D64.9 - Anemia, unspecified Status: Acute Assessment and Plan: * Hgb 12.3 upon admission on 05/09. 15.7 at discharge on 04/29. * check iron, TIBC, ferritin, B12, folic acid, and stool guaiac. * TSH 3.23 on 08/14 * transfuse if <7 * trend H&H * of note, recently started on Eliquis and Plavix secondary to acute stroke julien ier this month (6) History of CVA (cerebrovascular accident): Code(s): Z86.73 - Personal history of transient ischemic attack (TIA), and cerebral infarction without residual deficits Status: Chronic Assessment and Plan: * Brain MRI, 04/23 with small acute infarct at the genu of the right corpus callosum, several old lacunar infarcts, multiple small foci of susceptibility artifact scattered throughout the brain including the cerebral hemispheres, midbrain and cerebellum consistent with chronic microhemorrhage typically seen in the setting of hypertension but can also be seen with amyloid angiopathy. * worsening AMS likely secondary to UTI, however could be sequela of recent CVA. started on abx, monitor response. * discussed with Dr. Miguel falk to stop ASA, Plavix as patient was found to have Afib on last admission. Continue Eliquis. (7) Seizure disorder: Code(s): G40.909 - Epilepsy, unspecified, not intractable, without status epilepticus Status: Chronic Assessment and Plan: * continue lacosamide (switched from Keppra due to agitation on last admit) (8) Atrial fibrillation: Qualifiers: Atrial fibrillation type: unspecified chronic Qualified Code(s): I48.20 - Chronic atrial fibrillation, unspecified Code(s): I48.91 - Unspecified atrial fibrillation Status: Chronic Assessment and Plan: * continue home medications: Metoprolol, Eliquis (9) Hyperglycemia: Code(s): R73.9 - Hyperglycemia, unspecified Status: Chronic Assessment and Plan: * glucose 184 upon admission * A1C 5.9% on 04/25/25 (10) Hypertension: Qualifiers: Hypertension type: essential hypertension Qualified Code(s): I10 - Essential (primary) hypertension Code(s): I10 - Essential (primary) hypertension Status: Chronic Assessment and Plan: * chronic, currently 123/50 * continue home medications: Lisinopril, metoprolol * monitor Plan DVT Prophylaxis: Eliquis Disposition: TBD Code Status: Full code Subjective Date/time seen: 05/11/25 07:47 Interval history: 69 y/o M with PMH of recent CVA, atrial fibrillation, and HTN presents here with AMS. 05/11/2025 Patient resting comfortably in bed at time of examination. Postop cystoscopy with clot evacuation and complex Viera catheter insertion. During procedure, there was significant blood clot in obvious injury to the membranous urethra and a [address] catheter was placed. Patient is now resting comfortably, WBC down from 27.5 -> 25.1. Blood and urine culture still pending. Review of Systems Review of Systems: All systems reviewed & are unremarkable except as noted in HPI and below Exam Narrative: General: NAD, disheveled Eyes: EOMI ENT: neck supple Cardiovascular: Regular rate and rhythm Respiratory: Clear to auscultation, respirations even and unlabored on RA Gastrointestinal: Soft, non tender Genitourinary: no suprapubic tenderness Musculoskeletal: No edema Skin: warm, dry Neuro: Alert. Psych: Mood appropriate Const: General: comfortable and no acute distress Other: , male, elderly, nontoxic appearance HENMT: Face/Nose/Sinus: Normal nares present Mouth: Yes moist mucous membranes Eyes: General: appearance normal, both eyes and all related structures Sclera: sclerae normal Pupils: Equal, round and reactive pupils present EOM: EOMs intact bilaterally Resp: Effort & Inspection: normal respiratory effort Auscultation: clear to auscultation bilaterally Cardio: Rate: regular rate Rhythm: regular rhythm Other: S1-S2 present without murmur, rub, ectopy GI: Other: Abdomen soft, nondistended, nontender. Normoactive bowel sounds in all quadrants. Skin: General skin exam: normal color and no rashes or lesions noted Wounds: no wounds Neuro: Cranial nerves: Yes Equal, round and reactive pupils present Speech: normal speech Motor exam (neuro): 5/5 motor strength present throughout Sensory Exam: normal sensation Other: A/Ox3, no tremors or involuntary movements appreciated. Extrem: General: normal to inspection Psych: Mental Status: mental status grossly normal Affect: normal affect Other: Fair insight and judgment, pleasant, no agitation noted. Objective Data Vital Signs Vital Signs: Vital Signs - 24 hr 05/10/25 08:15 05/10/25 08:53 05/10/25 12:00 Temperature Pulse Rate 68 73 Respiratory Rate Blood Pressure Pulse Oximetry Oxygen Delivery Room Air 05/10/25 14:00 05/10/25 16:00 05/10/25 20:00 Temperature 99.7 F H Pulse Rate 68 92 Respiratory Rate 18 Blood Pressure 120/54 L Pulse Oximetry 98 Oxygen Delivery Room Air 05/10/25 20:00 05/10/25 20:31 Temperature 98.4 F Pulse Rate 76 69 Respiratory Rate 16 Blood Pressure 144/66 H Pulse Oximetry 99 Oxygen Delivery Intake/Output Intake/Output: Intake & Output 05/08/25 05/09/25 05/10/25 05/11/25 23:59 23:59 23:59 23:59 Intake Total 3096.7 2470 0 Output Total 200 Balance 3096.7 2470 -200 Meds/Results Medications: Active Medications Generic Name Dose Route Start Last Admin Trade Name Freq PRN Reason Stop Dose Admin Acetaminophen 650 mg 05/09/25 13:23 Acetaminophen 325 Mg Tablet PO Q6H PRN Pain Rated 1-3 Apixaban 5 mg 05/09/25 22:35 05/10/25 20:48 Apixaban 5 Mg Tablet PO 5 mg On Hold: 05/11/25 07:16 Q12HR JUSTINA Administration Atorvastatin Calcium 40 mg 05/10/25 09:00 05/10/25 08:52 Atorvastatin 40 Mg Tablet PO 40 mg DAILY JUSTINA Administration Bupropion HCl 150 mg 05/10/25 09:00 05/10/25 08:52 Bupropion Hcl Xl (24 Hr) 150 Mg Tabcr PO 150 mg DAILY JUSTINA Administration Donepezil HCl 10 mg 05/10/25 09:00 05/10/25 08:52 Donepezil Hcl 10 Mg Tablet PO 10 mg DAILY JUSTINA Administration Ciprofloxacin/Dextrose 200 mls @ 200 mls/hr 05/10/25 15:00 05/10/25 23:03 Cipro 400 Mg/D5w 200 Ml IVPB Infused Q12HR JUSTINA Infusion Lacosamide 200 mg 05/09/25 22:35 05/10/25 20:48 Lacosamide (*Crx) 200 Mg Tablet PO 200 mg Q12HR JUSTINA Administration Lisinopril 40 mg 05/10/25 09:00 05/10/25 08:53 Lisinopril 20 Mg Tablet PO 40 mg QAM JUSTINA Administration Metoprolol Succinate 50 mg 05/10/25 09:00 05/10/25 08:53 Metoprolol Succinate Ext Rel 50 Mg Tabcr PO 50 mg DAILY JUSTINA Administration Ondansetron HCl 4 mg 05/09/25 13:24 Ondansetron Hcl Odt 4 Mg Tablet PO Q4H PRN Nausea And Vomiting Radiology Results: ITS Impressions Head CT 05/09/25 12:10 IMPRESSION: 1. Few old lacunar infarcts in the right basal ganglia and in the coronal radiata of the bilateral frontal and right parietal lobes. No acute intracranial process. 2. Age-related changes including mild to moderate diffuse volume loss and extensive scattered white matter hypoattenuation consistent with chronic small vessel ischemic disease. Chest/Abdomen/Pelvis CT 05/09/25 12:34 IMPRESSION: 1. Prostatomegaly with surrounding from trace stranding also extending around the bilateral seminal vesicles which raises concern for prostatitis. 2. No acute cardiopulmonary disease or other acute intra-abdominal/pelvic process. Labs Labs: Laboratory Results - last 24 hr 05/09/25 05/10/25 05/11/25 14:40 06:08 06:12 WBC 25.1 H RBC 3.40 L Hgb 10.9 L Hct 30.2 L MCV 88.8 MCH 32.1 MCHC 36.1 H RDW 13.2 Plt Count 258 MPV 9.4 Immature Gran % (Auto) 1.9 H Neut % (Auto) 92.3 H Lymph % (Auto) 1.8 L [place] % (Auto) 3.8 Eos % (Auto) 0.0 Baso % (Auto) 0.2 Lymph # (Auto) 0.45 L [place] # (Auto) 1.0 H Eos # (Auto) 0.0 Baso # (Auto) 0.1 Abs Immat Gran (auto) 0.48 H Absolute Neuts (auto) 23.2 H Absolute Nucleated RBC 0.000 Total Counted 100 Neutrophils % (Manual) 85 H Band Neutrophils % 10 H Lymphocytes % (Manual) 3 L Monocytes % (Manual) 2 L Nucleated RBC % 0.0 Abs Neuts (Manual) 26.12 H Abs Lymphs (Manual) 0.82 L Abs Monocytes (Manual) 0.55 Platelet Estimate Adequate Anisocytosis Occasional Ovalocytes 1+ Schistocytes None seen PT 19.1 H INR 1.6 Sodium 133 L Potassium 2.9 L Chloride 102 Carbon Dioxide 20 L Anion Gap 11 BUN 14 Creatinine 0.98 Estim Creat Clear Calc 58 Estimated GFR > 60 Glucose 201 H Calcium 8.6 Total Bilirubin 1.0 AST 40 ALT 24 Alkaline Phosphatase 89 Total Protein 6.3 Albumin 3.5 Stl Occult Blood (IFOB) Cancelled Quality VTE Prophylaxis VTE prophylaxis: pharmacologic ordered
--- NOTE | 2025-05-11 09:05 | PCSTNOTE ---
Please refer to the Bedside Swallow Evaluation in the EMR. Please note, silent aspiration cannot be ruled out at bedside. On hold NPO for testing. Attempt later today as able.
[2025-05-11] MEDS: CIPROFLOXACIN 400 MG/D5W 200ML 200 ML 200 MG IVPB ×2 (09:23→20:57)
[2025-05-11] MEDS: LIDOCAINE 2% GEL UROJET 10 ML PKG 20 ML MUCOUS MEM (09:40)
[2025-05-11] MEDS: MORPHINE SULFATE (*CRX) 2 MG/ML INJ IV PUSH (09:40)
--- NOTE | 2025-05-11 10:19 | P.PNUR_ITS ---
Progress Note: A&P Assessment and Plan (1) Prostatitis: Qualifiers: Prostatitis type: acute Qualified Code(s): N41.0 - Acute prostatitis Code(s): N41.9 - Inflammatory disease of prostate, unspecified Status: Acute (2) UTI (urinary tract infection): Qualifiers: Hematuria presence: without hematuria Urinary tract infection type: acute cystitis Qualified Code(s): N30.00 - Acute cystitis without hematuria Code(s): N39.0 - Urinary tract infection, site not specified Status: Acute Plan Mr. Clark is a 69-year-old male admitted with sepsis secondary to acute prostatitis and a urinary tract infection, contributing to his altered mental status. Imaging confirms significant prostatic inflammation, and he is at risk for urinary retention. His urine and blood cultures are currently pending on empiric IV ceftriaxone. His presentation is complicated by his recent CVA. Patient is in bilateral wrist restraints and was able to rip out his catheter last night. He has been NPO all night. Staff replaced his catheter with regular 16fr. -Patient was given 2mg morphine iv because he is fighting us. I removed regular catheter and upon removal patient expelled multiple very large clots with large amount of blood. His bladder volume did decrease slightly after this. once he stopped, i attempted a 24fr three way catheter which i could not pass through his meatus more than about a cm. I then was able to place a 22fr three way catheter with difficulty and was unable to flush any significant amount into bladder and was unable to pull back anything at all. His bladder is distended up to umbilicus. -Stat CT urogram -Keep npo - I have added him to OR schedule for cysto/ clot evacuation for today with Dr. Chen. Case discussed with Dr. Chen Subjective Subjective Date/Time Seen: 05/11/25 10:19 Interval history: patient ripped catheter out overnight. staff replaced with regular 16fr. gross hematuria and clots since. Now no output this morning. Clot in catheter. Patient has been NPO all night. Review of Systems Review of Systems: All systems reviewed & are unremarkable except as noted in HPI and below Exam Const: General: in distress and uncomfortable Eyes: General: appearance normal, both eyes and all related structures Neck: Neck: supple Resp: Effort & Inspection: normal respiratory effort : General: No bladder normal to palpation (bladder distended to umbilicus) Urinary Catheter: Urinary Catheter: urine red and urine with clots (blood and clots in bag and output has stopped. large clot in catheter) Skin: General skin exam: normal color Neuro: Speech: normal speech Psych: Mental Status: mental status grossly abnormal (confused and pulling at stuff. bilateral wrist restraints. ) Affect: Anxious affect present Objective Data Vital Signs Vital Signs: Vital Signs - 24 hr 05/10/25 12:00 05/10/25 14:00 05/10/25 16:00 Temperature 99.7 F H Pulse Rate 73 68 92 Respiratory Rate 18 Blood Pressure 120/54 L Pulse Oximetry 98 Oxygen Delivery 05/10/25 20:00 05/10/25 20:00 05/10/25 20:31 Temperature 98.4 F Pulse Rate 76 69 Respiratory Rate 16 Blood Pressure 144/66 H Pulse Oximetry 99 Oxygen Delivery Room Air Intake/Output Intake/Output: Intake & Output 05/08/25 05/09/25 05/10/25 05/11/25 23:59 23:59 23:59 23:59 Intake Total 3096.7 2470 0 Output Total 200 Balance 3096.7 2470 -200 Meds/Results Medications: Active Medications Generic Name Dose Route Start Last Admin Trade Name Freq PRN Reason Stop Dose Admin Acetaminophen 650 mg 05/09/25 13:23 Acetaminophen 325 Mg Tablet PO Q6H PRN Pain Rated 1-3 Apixaban 5 mg 05/09/25 22:35 05/10/25 20:48 Apixaban 5 Mg Tablet PO 5 mg On Hold: 05/11/25 07:16 Q12HR JUSTINA Administration Atorvastatin Calcium 40 mg 05/10/25 09:00 05/10/25 08:52 Atorvastatin 40 Mg Tablet PO 40 mg DAILY JUSTINA Administration Bupropion HCl 150 mg 05/10/25 09:00 05/10/25 08:52 Bupropion Hcl Xl (24 Hr) 150 Mg Tabcr PO 150 mg DAILY JUSTINA Administration Donepezil HCl 10 mg 05/10/25 09:00 05/10/25 08:52 Donepezil Hcl 10 Mg Tablet PO 10 mg DAILY JUSTINA Administration Ciprofloxacin/Dextrose 200 mls @ 200 mls/hr 05/10/25 15:00 05/11/25 09:23 Cipro 400 Mg/D5w 200 Ml IVPB 200 mls/hr Q12HR JUSTINA Administration Lacosamide 200 mg 05/09/25 22:35 05/10/25 20:48 Lacosamide (*Crx) 200 Mg Tablet PO 200 mg Q12HR JUSTINA Administration Lisinopril 40 mg 05/10/25 09:00 05/10/25 08:53 Lisinopril 20 Mg Tablet PO 40 mg QAM JUSTINA Administration Metoprolol Succinate 50 mg 05/10/25 09:00 05/10/25 08:53 Metoprolol Succinate Ext Rel 50 Mg Tabcr PO 50 mg DAILY JUSTINA Administration Ondansetron HCl 4 mg 05/09/25 13:24 Ondansetron Hcl Odt 4 Mg Tablet PO Q4H PRN Nausea And Vomiting Radiology Results: ITS Impressions Head CT 05/09/25 12:10 IMPRESSION: 1. Few old lacunar infarcts in the right basal ganglia and in the coronal radiata of the bilateral frontal and right parietal lobes. No acute intracranial process. 2. Age-related changes including mild to moderate diffuse volume loss and extensive scattered white matter hypoattenuation consistent with chronic small vessel ischemic disease. Chest/Abdomen/Pelvis CT 05/09/25 12:34 IMPRESSION: 1. Prostatomegaly with surrounding from trace stranding also extending around the bilateral seminal vesicles which raises concern for prostatitis. 2. No acute cardiopulmonary disease or other acute intra-abdominal/pelvic process. Labs Labs: Laboratory Results - last 24 hr 05/09/25 05/11/25 14:40 06:12 WBC 25.1 H RBC 3.40 L Hgb 10.9 L Hct 30.2 L MCV 88.8 MCH 32.1 MCHC 36.1 H RDW 13.2 Plt Count 258 MPV 9.4 Immature Gran % (Auto) 1.9 H Neut % (Auto) 92.3 H Lymph % (Auto) 1.8 L [place] % (Auto) 3.8 Eos % (Auto) 0.0 Baso % (Auto) 0.2 Lymph # (Auto) 0.45 L [place] # (Auto) 1.0 H Eos # (Auto) 0.0 Baso # (Auto) 0.1 Abs Immat Gran (auto) 0.48 H Absolute Neuts (auto) 23.2 H Absolute Nucleated RBC 0.000 Nucleated RBC % 0.0 PT 19.1 H INR 1.6 Sodium 133 L Potassium 2.9 L Chloride 102 Carbon Dioxide 20 L Anion Gap 11 BUN 14 Creatinine 0.98 Estim Creat Clear Calc 58 Estimated GFR > 60 Glucose 201 H Calcium 8.6 Total Bilirubin 1.0 AST 40 ALT 24 Alkaline Phosphatase 89 Total Protein 6.3 Albumin 3.5 Stl Occult Blood (IFOB) Cancelled
[2025-05-11] MEDS: NACL 0.9% IRRIGATION POUR BOTTLE 500 ML (11:10)
[2025-05-11] MEDS: LACTATED RINGERS 1,000 ML 30 ML IV CONT (11:40)
--- NOTE | 2025-05-11 11:54 | P.PNAN_ITS ---
Anes - Initial Pre Proc Eval Procedure: Operation Date: 05/11/25 12:30 Proposed Procedures p Cystoscopy, Clot Evacuation - Denilson Chen MD Date/Time: 05/11/25 11:54 Surgeon: Kofi Carmona MD Pre Op Diagnosis: ams,urosepsis Patient Data Age: 69 Gender: M Height: 1.7 m Weight: 70.6 kg Last Vital Signs Temp 98.4 F 05/10/25 20:31 Pulse 69 05/10/25 20:31 Resp 16 05/10/25 20:31 BP 144/66 H 05/10/25 20:31 Pulse Ox 99 05/10/25 20:31 O2 Del Method Room Air 05/11/25 08:00 Allergies Allergy/AdvReac Type Severity Reaction Status Date / Time Penicillins Allergy Unknown Anaphylaxis Verified 05/09/25 15:57 Home Medications ?Medication ?Instructions ?Recorded ?Confirmed ?Type metoprolol succinate 50 mg 50 mg PO DAILY #90 tabs 07/0905/09/25 Rx tablet,extended release 24 hr acetaminophen 500 mg tablet 1,000 mg (2 x 500 mg) PO Q 6H PRN 12/28/24 05/09/25 Rx (Tylenol Extra Strength) pain #50 tabs aspirin 81 mg tablet,delayed 81 mg PO QAM 30 days #30 tabs 04/25/25 05/09/25 Rx release atorvastatin 40 mg tablet 40 mg PO DAILY 30 days #30 t abs 04/25/25 05/09/25 Rx clopidogrel 75 mg tablet 75 mg PO QAM 30 days #30 tab s 04/25/25 05/09/25 Rx apixaban 5 mg tablet (Eliquis) 5 mg PO Q12HR #60 tabs 04/29/25 05/09/25 Rx lisinopril 20 mg tablet 40 mg (2 x 20 mg) PO QAM #30 tabs 04/29/25 05/09/25 Rx bupropion HCl 150 mg 24 hr tablet, 150 mg PO DAILY #90 tabs 05/03/25 05/09/25 Rx extended release (Wellbutrin XL) donepezil 10 mg tablet (Aricept) 10 mg PO DAILY #90 ta bs 05/03/25 05/09/25 Rx lacosamide 100 mg tablet 200 mg PO Q12H 05/09/25 0802/06 History Laboratory Tests 05/09/25 05/11/25 14:40 06:12 WBC 25.1 H K/mm3 (4.5-10.0) RBC 3.40 L M/mm3 (4.6-6.20) Hgb 10.9 L g/dL (14.0-18.0) Hct 30.2 L % (42.0-52.0) MCV 88.8 fl (80-100) MCH 32.1 pg (26-34) MCHC 36.1 H g/dl (32-36) RDW 13.2 % (11.5-14.5) Plt Count 258 k/mm3 (150-375) MPV 9.4 fl (7.4-10.4) Immature Gran % (Auto) 1.9 H % (0-0.5) Neut % (Auto) 92.3 H % (45.5-73.1) Lymph % (Auto) 1.8 L % (18.3-44.2) [place] % (Auto) 3.8 % (2.6-8.5) Eos % (Auto) 0.0 % (0-4.4) Baso % (Auto) 0.2 % (0.2-1.2) Lymph # (Auto) 0.45 L K/mm3 (0.9-3.2) [place] # (Auto) 1.0 H K/mm3 (0.1-0.6) Eos # (Auto) 0.0 K/mm3 (0-0.3) Baso # (Auto) 0.1 K/mm3 (0.0-0.1) Abs Immat Gran (auto) 0.48 H K/mm3 (0.00-0.031) Absolute Neuts (auto) 23.2 H K/mm3 (1.3-6.7) Absolute Nucleated RBC 0.000 K/mm3 (0.0-0.012) Nucleated RBC % 0.0 % (0.0-0.2) PT 19.1 H Seconds (11.1-14.7) INR 1.6 Sodium 133 L mmol/L (137-145) Potassium 2.9 L mmol/L (3.4-5.0) Chloride 102 mmol/L (98-107) Carbon Dioxide 20 L mmol/L (22-30) Anion Gap 11 mmol/L (4-12) BUN 14 mg/dL (9-20) Creatinine 0.98 mg/dL (0.7-1.3) Estim Creat Clear Calc 58 ml/min Estimated GFR > 60 (59 - ) Glucose 201 H mg/dL (65-110) Calcium 8.6 mg/dL (8.4-10.2) Total Bilirubin 1.0 mg/dL (0.2-1.3) AST 40 U/L (17-59) ALT 24 U/L (6-50) Alkaline Phosphatase 89 U/L (38-126) Total Protein 6.3 g/dL (6.3-8.2) Albumin 3.5 g/dL (3.5-5.1) Stl Occult Blood (IFOB) Cancelled Patient hx anesthesia problems: none Family hx anesthesia problems: none Results Review: All pre-operative results and documents have been reviewed as part of the pre- operative evaluation. [facility] Past Medical History Medical History (Updated 05/09/25 @ 14:36 by Zo Thayer) Atrial fibrillation Seizure disorder Hyperlipidemia Acute cerebrovascular accident Encounter for screening for cardiovascular disorders Hyperglycemia Hypertension Surgical History Surgical History History of bilateral knee replacement History of orthopedic surgery Right upper extremity reconstruction Family History Family History Mother Family history of diabetes mellitus in first degree relative Sibling Carcinoma of colon Uterine cancer Social History Social History Smoking packs per day: 0.5 Smoking cigarettes per day: 10.0 Years smoked: 15 Smoking pack-years: 7.50 Smoking status: Former smoker Second hand tobacco smoke exposure: Yes Alcohol intake: former Substance use: current Substance use type: marijuana Other substance usage details: 3x weekly Last use: today Do You Feel Safe in your Home?: Yes Lack of Transportation: No Lack of Food: Never True Current Housing: I Have Housing Concerned About Future Housing: No Difficulty Paying Gas/Electric Bills: No Difficulty Paying for Meds: No Currently Unemployed: No Education: High School Diploma/GED Difficulty w/ Childcare or Family Care: No Living arrangements: with family Spiritual care concerns: No Anes - Eval Final PreProcedure Day of Procedure 05/11/25 11:54 Patient weight: normal Heart: regular rate and rhythm Lungs: clear to auscultation Airway: Mallampati scale class II Neurological: alert and oriented Last oral intake: >/= 8 hours ASA classification: III Emergent: no Anesthetic plan: proceed Anesthesia type and monitoring: general LMA and standard monitoring Results Review: All pre-operative results and documents have been reviewed as part of the pre- operative evaluation. Informed Consent: The patient's anesthetic plan and its attendant risks and benefits were discussed with the patient/family/POA. Questions were solicited and answers provided to the satisfaction of the patient/family/POA.
--- NOTE | 2025-05-11 11:54 | WPDHPUPDATE1 ---
History and Physical Update Update Date/Time: 05/11/25 11:54 History and Physical has been reviewed, including an updated exam of the patient. There are NO changes in the patient's condition. Risks, benefits, and alternatives have been discussed and questions answered. Patient agrees to proceed with procedure.
--- NOTE | 2025-05-11 12:44 | W.PM.PROC2 ---
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 Patient taken the operating. He was given general anesthetic. He is receiving antibiotics on the floor. We inserted a 22 F cystoscope into the urethra there was significant blood clot seen in the bulbar and membranous urethra we were however able to navigate through false passage and enter into the bladder countered clot inside the bladder and then used a Manuel syringe to evacuate clots from the bladder. Approximately 50-100cc of clot was from the bladder. Bladder and there was no active bleeding. There were no mucosal abnormalities seen. We then placed a wire through the scope then pulled back the scope to inspect the urethra. Patient had bilobar prostatic hyperplasia without active bleeding. There was significant blood clot and obvious injury to the membranous urethra. Over the wire we placed a [address] catheter[address] 30cc placed in the balloon. Continuous bladder irrigation was started which ran clear. Patient taken to PACU in stable Complications No immediate complications Condition Stable Disposition PACU
--- NOTE | 2025-05-11 14:27 | PC.NURSE ---
This patient, Giancarlo Clark JrSara, was received from PACU on 05/11/25 at 1400. Patient/family oriented to unit policies and routines. Report received from TITA Hall from previous floor.
[2025-05-11] MEDS: SODIUM CHLORIDE 0.9% IV 1,000 ML 125 ML IV CONT (16:20)
[2025-05-11] MEDS: LACOSAMIDE (*CRX) 200 MG TABLET PO (20:57)
[2025-05-12] VITALS (21 sets, daily range): BP systolic 142–147; BP diastolic 80–93; PULSE 90–172; RESP 16–20; TEMP 36.4–37; O2SAT 97–100
[2025-05-12] MEDS: SODIUM CHLORIDE 0.9% IV 1,000 ML 125 ML IV CONT ×3 (00:31→21:53)
--- NOTE | 2025-05-12 06:46 | WPDUROPN2 ---
Progress Note: A&P Assessment and Plan (1) Prostatitis: Qualifiers: Prostatitis type: acute Qualified Code(s): N41.0 - Acute prostatitis Code(s): N41.9 - Inflammatory disease of prostate, unspecified Status: Acute (2) Gross hematuria: Code(s): R31.0 - Gross hematuria Status: Acute Assessment and Plan: Urine clear on slow CBI. Will slow CBI and get catheter out as soon as we comfortable urine will remain clear. Urine cx. pending. Subjective Subjective Date/Time Seen: 05/12/25 06:46 Interval history: NAEO Review of Systems Review of Systems: ROS unobtainable: Yes unobtainable due to mental status Exam Const: General: no acute distress Resp: Effort & Inspection: normal respiratory effort GI: Inspection: non-distended GI Palp: No abdominal tenderness and No Guarding due to palpation present (GI) Auscultation: normal bowel sounds Urinary Catheter: Urinary Catheter: patent and draining and urine clear Objective Data Vital Signs Vital Signs: Vital Signs - 24 hr 05/11/25 08:00 05/11/25 10:40 05/11/25 12:48 Temperature 100.1 F H 99.8 F H Pulse Rate 136 H 102 H Respiratory Rate 20 20 Blood Pressure 115/85 139/72 Pulse Oximetry 100 100 Oxygen Delivery Room Air Room Air Simple Face Mask Oxygen Flow Rate 8 05/11/25 13:00 05/11/25 13:15 05/11/25 13:30 Temperature Pulse Rate 100 105 H 107 H Respiratory Rate 20 16 20 Blood Pressure 108/73 108/73 127/86 Pulse Oximetry 100 100 100 Oxygen Delivery Simple Face Mask Nasal Cannula Nasal Cannula Oxygen Flow Rate 8 2 2 05/11/25 13:45 05/11/25 14:00 05/11/25 16:00 Temperature 99.7 F H Pulse Rate 106 H 128 H 119 H Respiratory Rate 20 20 Blood Pressure 105/56 L 130/83 Pulse Oximetry 99 96 Oxygen Delivery Nasal Cannula Oxygen Flow Rate 2 05/11/25 16:12 05/11/25 20:00 05/11/25 20:00 Temperature 99.5 F 99.6 F Pulse Rate 112 H 140 H 137 H Respiratory Rate 20 20 Blood Pressure 88/57 L 100/73 Pulse Oximetry 99 100 Oxygen Delivery Oxygen Flow Rate 05/11/25 22:00 05/11/25 23:56 05/12/25 00:00 Temperature 97.6 F Pulse Rate 113 H 104 H 104 H Respiratory Rate 20 Blood Pressure 97/66 L Pulse Oximetry 100 Oxygen Delivery Oxygen Flow Rate 05/12/25 02:00 05/12/25 04:00 05/12/25 04:00 Temperature 97.5 F L Pulse Rate 106 H 121 H 113 H Respiratory Rate 16 Blood Pressure 147/87 H Pulse Oximetry 100 Oxygen Delivery Oxygen Flow Rate 05/12/25 06:00 Temperature Pulse Rate 108 H Respiratory Rate Blood Pressure Pulse Oximetry Oxygen Delivery Oxygen Flow Rate Intake/Output Intake/Output: Intake & Output 05/09/25 05/10/25 05/11/25 05/12/25 23:59 23:59 23:59 23:59 Intake Total 3096.7 2470 800 1000 Output Total 4175 175 Balance 3096.7 7520 -9875 825 Meds/Results Medications: Active Medications Generic Name Dose Route Start Last Admin Trade Name Freq PRN Reason Stop Dose Admin Acetaminophen 650 mg 05/09/25 13:23 Acetaminophen 325 Mg Tablet PO Q6H PRN Pain Rated 1-3 Atorvastatin Calcium 40 mg 05/10/25 09:00 05/11/25 11:20 Atorvastatin 40 Mg Tablet PO Not Given DAILY [facility] Bupropion HCl 150 mg 05/10/25 09:00 05/11/25 11:20 Bupropion Hcl Xl (24 Hr) 150 Mg Tabcr PO Not Given DAILY [facility] Donepezil HCl 10 mg 05/10/25 09:00 05/11/25 11:20 Donepezil Hcl 10 Mg Tablet PO Not Given DAILY [facility] Fentanyl Citrate 25 mcg 05/11/25 12:01 Fentanyl Citrate Inj (*Crx) 100 Mcg/2 Ml Vial IV PUSH Q2M PRN Pain Ciprofloxacin/Dextrose 200 mls @ 200 mls/hr 05/10/25 15:00 05/11/25 21:57 Cipro 400 Mg/D5w 200 Ml IVPB Infused Q12HR [facility] Infusion Lactated Ringer's 1,000 mls @ 30 mls/hr 05/11/25 12:05 05/11/25 13:49 Lr - Lactated Ringers Iv IV CONT Infused .Q24H [facility] Infusion Lactated Ringer's 1,000 mls @ 30 mls/hr 05/11/25 12:05 05/11/25 15:52 Lr - Lactated Ringers Iv IV CONT Not Given .Q24H [facility] Sodium Chloride 1,000 mls @ 125 mls/hr 05/11/25 15:55 05/12/25 00:31 Normal Saline Iv IV CONT 125 mls/hr .Q8H [facility] Administration Lacosamide 200 mg 05/09/25 22:35 05/11/25 20:57 Lacosamide (*Crx) 200 Mg Tablet PO 200 mg Q12HR [facility] Administration Lisinopril 40 mg 05/10/25 09:00 05/11/25 11:20 Lisinopril 20 Mg Tablet PO Not Given QAM [facility] Metoprolol Succinate 50 mg 05/10/25 09:00 05/11/25 14:27 Metoprolol Succinate Ext Rel 50 Mg Tabcr PO Not Given DAILY [facility] Ondansetron HCl 4 mg 05/09/25 13:24 Ondansetron Hcl Odt 4 Mg Tablet PO Q4H PRN Nausea And Vomiting Ondansetron HCl 4 mg 05/11/25 12:01 Ondansetron Inj 4 Mg/2 Ml Vial IV PUSH ONCE PRN Nausea Radiology Results: ITS Impressions Head CT 05/09/25 12:10 IMPRESSION: 1. Few old lacunar infarcts in the right basal ganglia and in the coronal radiata of the bilateral frontal and right parietal lobes. No acute intracranial process. 2. Age-related changes including mild to moderate diffuse volume loss and extensive scattered white matter hypoattenuation consistent with chronic small vessel ischemic disease. Chest/Abdomen/Pelvis CT 05/09/25 12:34 IMPRESSION: 1. Prostatomegaly with surrounding from trace stranding also extending around the bilateral seminal vesicles which raises concern for prostatitis. 2. No acute cardiopulmonary disease or other acute intra-abdominal/pelvic process. Labs Labs: Laboratory Results - last 24 hr 05/11/25 05/11/25 06:12 21:10 WBC 25.1 H RBC 3.40 L Hgb 10.9 L Hct 30.2 L MCV 88.8 MCH 32.1 MCHC 36.1 H RDW 13.2 Plt Count 258 MPV 9.4 Immature Gran % (Auto) 1.9 H Neut % (Auto) 92.3 H Lymph % (Auto) 1.8 L [place] % (Auto) 3.8 Eos % (Auto) 0.0 Baso % (Auto) 0.2 Lymph # (Auto) 0.45 L [place] # (Auto) 1.0 H Eos # (Auto) 0.0 Baso # (Auto) 0.1 Abs Immat Gran (auto) 0.48 H Absolute Neuts (auto) 23.2 H Absolute Nucleated RBC 0.000 Nucleated RBC % 0.0 PT 19.1 H INR 1.6 Sodium 133 L Potassium 2.9 L Chloride 102 Carbon Dioxide 20 L Anion Gap 11 BUN 14 Creatinine 0.98 Estim Creat Clear Calc 58 Estimated GFR > 60 Glucose 201 H POC Capillary Glucose 157 H Calcium 8.6 Total Bilirubin 1.0 AST 40 ALT 24 Alkaline Phosphatase 89 Total Protein 6.3 Albumin 3.5
--- NOTE | 2025-05-12 08:33 | PCSTNOTE ---
Please refer to the Bedside Swallow Evaluation in the EMR. Please note, silent aspiration cannot be ruled out at bedside. Patient is a 69 year old male who presented to ED with worsening delirium and UTI. Medical history is significant for CVA. Patient is positioned upright in bed for completion of bedside swallow evaluation with no family present. Patient is oriented, alert, and able to follow commands. Noted that patient is experiencing word finding difficulty. DIRECTOR INVESTOR RELATIONS conducted oral mechanism exam, in which no facial asymmetry was noted. Patient's oral mucosa was normal. Patient presents with significantly limited dentition, although reports that he has full upper and low dentures at home. Patient demonstrated good lingual and lip range of motion, as well as clear vocal quality. DIRECTOR INVESTOR RELATIONS presented 5/mL of ice chip via spoon, cup sip (uncontrolled thin 1), puree (pudding), and solid (cracker), followed by a second cup sip (uncontrolled thin 1) trails. Patient readily accepts PO trials and self-feeds throughout. Patient demonstrated good containment of bolus and timely oral manipulate and transport. No significant oral residue is noted. Presence of swallow initiation is felt to palpation by DIRECTOR INVESTOR RELATIONS. Patient displayed a delayed cough after first cup sip trial, noted patient was very verbose throughout PO intake. Overall, no overt signs or symptoms of aspiration is observed. It is noted the presence of silent aspiration cannot be ruled out at bedside. Recommended level 7 regular diet and level [address] services indicated at this time. Recommendations communicated with bedside RNPeter and provider. Thank you for this referral.
--- NOTE | 2025-05-12 08:54 | P.PNIM_ITS ---
Progress Note: A&P Assessment and Plan (1) Sepsis: Code(s): A41.9 - Sepsis, unspecified organism Status: Acute Assessment and Plan: * sepsis present on admission as evidenced by tachycardia, tachypnea, leukocyto sis * BP stable, LA WNL * source: UTI with possible prostatitis * received 1L bolus in ED followed by LR 125cc/hr overnight * management of UTI as below * Blood culture shows NGTD * Urine culture still pending * Leukocytosis remains elevated - could be 2/2 to procedure, monitor on am labs (2) AMS (altered mental status): Qualifiers: Altered mental status type: delirium Qualified Code(s): R41.0 - Disorientation, unspecified Code(s): R41.82 - Altered mental status, unspecified Status: Acute Assessment and Plan: * Head CT, 05/09 with no acute process, old lacunar infarcts in the R basal ganglia and coronal radiata of the bilateral frontal and right parietal lobes. Age-related changes. * recent dx of CVA on 04/23. MRI showed a small acute infarct at the genu of the right corpus callosum and several old lacunar infarcts at the right basal ganglia and right frontal and parietal lobe dobbins radiata. * developed agitation during last admission, thought to be secondary to CVA vs. side effect of Keppra so was transitioned to Lacosamide * UDS + for cannabis 04/22 * UA consistent with UTI * suspect worsening mental status secondary to acute UTI/prostatitis. Management as below. * If no improvement with treatment, consider neurology re-evaluation. (3) UTI (urinary tract infection): Qualifiers: Hematuria presence: without hematuria Urinary tract infection type: acute cystitis Qualified Code(s): N30.00 - Acute cystitis without hematuria Code(s): N39.0 - Urinary tract infection, site not specified Status: Acute Assessment and Plan: * UA: Cloudy, 1+ protein, 1+ ketones, 3+ blood, 3+ leuk esterase, 21-50 RBC, greater than 100 WBC, WBC clumps present, no epithelial * concern for prostatitis per CT * UCx pending * no previous micro urine available for review * leukocytosis increasing. Afebrile. Otherwise nonseptic. * IV Ciprofloxacin (4) Prostatitis: Qualifiers: Prostatitis type: acute Qualified Code(s): N41.0 - Acute prostatitis Code(s): N41.9 - Inflammatory disease of prostate, unspecified Status: Acute Assessment and Plan: * CT showed indicators of prostatitis * started on ceftriaxone on 05/09 * urology consulted * Stat cystoscopy with clot evacuation and complex Viera catheter insertion * During operation, significant blood clot in obvious injury to the membranous urethra, [address] placed. * Now on Ciprofloxacin IV * Per urology: * Urine clear on slow CBI. Will slow CBI and get catheter out as soon as we comfortable urine will remain clear. (5) Anemia: Qualifiers: Anemia type: unspecified type Qualified Code(s): D64.9 - Anemia, unspecified Code(s): D64.9 - Anemia, unspecified Status: Acute Assessment and Plan: * Hgb 12.3 upon admission on 05/09. 15.7 at discharge on 04/29. * check iron, TIBC, ferritin, B12, folic acid, and stool guaiac. * TSH 3.23 on 04/28 * transfuse if <7 * trend H&H * of note, recently started on Eliquis and Plavix secondary to acute stroke earlier this month (6) History of CVA (cerebrovascular accident): Code(s): Z86.73 - Personal history of transient ischemic attack (TIA), and cerebral infarction without residual deficits Status: Chronic Assessment and Plan: * Brain MRI, 04/23 with small acute infarct at the genu of the right corpus callosum, several old lacunar infarcts, multiple small foci of susceptibility artifact scattered throughout the brain including the cerebral hemispheres, midbrain and cerebellum consistent with chronic microhemorrhage typically seen in the setting of hypertension but can also be seen with amyloid angiopathy. * worsening AMS likely secondary to UTI, however could be sequela of recent CVA. started on abx, monitor response. * discussed with Dr. Miguel falk to stop ASA, Plavix as patient was found to have Afib on last admission. Continue Eliquis. (7) Seizure disorder: Code(s): G40.909 - Epilepsy, unspecified, not intractable, without status epilepticus Status: Chronic Assessment and Plan: * continue lacosamide (switched from Keppra due to agitation on last admit) (8) Atrial fibrillation: Qualifiers: Atrial fibrillation type: unspecified chronic Qualified Code(s): I48.20 - Chronic atrial fibrillation, unspecified Code(s): I48.91 - Unspecified atrial fibrillation Status: Chronic Assessment and Plan: * continue home medications: Metoprolol, Eliquis (9) Hyperglycemia: Code(s): R73.9 - Hyperglycemia, unspecified Status: Chronic Assessment and Plan: * glucose 184 upon admission * A1C 5.9% on 04/25/25 (10) Hypertension: Qualifiers: Hypertension type: essential hypertension Qualified Code(s): I10 - Essential (primary) hypertension Code(s): I10 - Essential (primary) hypertension Status: Chronic Assessment and Plan: * chronic, currently 123/50 * continue home medications: Lisinopril, metoprolol * monitor Plan DVT Prophylaxis: Eliquis Disposition: TBD Code Status: Full code Subjective Date/time seen: 05/12/25 08:54 Interval history: 69 y/o M with PMH of recent CVA, atrial fibrillation, and HTN presents here with AMS. 05/12/2025 Patient resting comfortably in bed at time of examination. No longer in soft restraints, very pleasant to talk to this am. Heart rate remains high - continue metoprolol 50mg po daily. BC show NGTD, urine cultures still pending. Seen by urology - urine clear on CBI - will remove catheter out if urine remains clear. Maintain antibiotics for prostatits. Working with PT/OT - likely will recommend SNF. Review of Systems Review of Systems: All systems reviewed & are unremarkable except as noted in HPI and below Exam Narrative: General: NAD, disheveled Eyes: EOMI ENT: neck supple Cardiovascular: Regular rate and rhythm Respiratory: Clear to auscultation, respirations even and unlabored on RA Gastrointestinal: Soft, non tender Genitourinary: no suprapubic tenderness Musculoskeletal: No edema Skin: warm, dry Neuro: Alert. Psych: Mood appropriate Const: General: comfortable and no acute distress Other: , male, elderly, nontoxic appearance HENMT: Face/Nose/Sinus: Normal nares present Mouth: Yes moist mucous membranes Eyes: General: appearance normal, both eyes and all related structures Sclera: sclerae normal Pupils: Equal, round and reactive pupils present EOM: EOMs intact bilaterally Resp: Effort & Inspection: normal respiratory effort Auscultation: clear to auscultation bilaterally Cardio: Rate: regular rate Rhythm: regular rhythm Other: S1-S2 present without murmur, rub, ectopy GI: Other: Abdomen soft, nondistended, nontender. Normoactive bowel sounds in all quadrants. Skin: General skin exam: normal color and no rashes or lesions noted Wounds: no wounds Neuro: Cranial nerves: Yes Equal, round and reactive pupils present Speech: normal speech Motor exam (neuro): 5/5 motor strength present throughout Sensory Exam: normal sensation Other: A/Ox3, no tremors or involuntary movements appreciated. Extrem: General: normal to inspection Psych: Mental Status: mental status grossly normal Affect: normal affect Other: Fair insight and judgment, pleasant, no agitation noted. Objective Data Vital Signs Vital Signs: Vital Signs - 24 hr 05/11/25 10:40 05/11/25 12:48 05/11/25 13:00 Temperature 100.1 F H 99.8 F H Pulse Rate 136 H 102 H 100 Respiratory Rate 20 20 20 Blood Pressure 115/85 139/72 108/73 Pulse Oximetry 100 100 100 Oxygen Delivery Room Air Simple Face Mask Simple Face Mask Oxygen Flow Rate 8 8 05/11/25 13:15 05/11/25 13:30 05/11/25 13:45 Temperature Pulse Rate 105 H 107 H 106 H Respiratory Rate 16 20 20 Blood Pressure 108/73 127/86 105/56 L Pulse Oximetry 100 100 99 Oxygen Delivery Nasal Cannula Nasal Cannula Nasal Cannula Oxygen Flow Rate 2 2 2 05/11/25 14:00 05/11/25 16:00 05/11/25 16:12 Temperature 99.7 F H 99.5 F Pulse Rate 128 H 119 H 112 H Respiratory Rate 20 20 Blood Pressure 130/83 88/57 L Pulse Oximetry 96 99 Oxygen Delivery Oxygen Flow Rate 05/11/25 20:00 05/11/25 20:00 05/11/25 22:00 Temperature 99.6 F Pulse Rate 140 H 137 H 113 H Respiratory Rate 20 Blood Pressure 100/73 Pulse Oximetry 100 Oxygen Delivery Oxygen Flow Rate 05/11/25 23:56 05/12/25 00:00 05/12/25 02:00 Temperature 97.6 F Pulse Rate 104 H 104 H 106 H Respiratory Rate 20 Blood Pressure 97/66 L Pulse Oximetry 100 Oxygen Delivery Oxygen Flow Rate 05/12/25 04:00 05/12/25 04:00 05/12/25 06:00 Temperature 97.5 F L Pulse Rate 121 H 113 H 108 H Respiratory Rate 16 Blood Pressure 147/87 H Pulse Oximetry 100 Oxygen Delivery Oxygen Flow Rate 05/12/25 07:56 Temperature 98.4 F Pulse Rate 126 H Respiratory Rate 20 Blood Pressure 142/90 H Pulse Oximetry 99 Oxygen Delivery Oxygen Flow Rate Intake/Output Intake/Output: Intake & Output 05/09/25 05/10/25 05/11/25 05/12/25 23:59 23:59 23:59 23:59 Intake Total 3096.7 2470 800 7000 Output Total 4173 650 Balance 3096.7 1598 -7805 5794 Meds/Results Medications: Active Medications Generic Name Dose Route Start Last Admin Trade Name Freq PRN Reason Stop Dose Admin Acetaminophen 650 mg 05/09/25 13:23 Acetaminophen 325 Mg Tablet PO Q6H PRN Pain Rated 1-3 Atorvastatin Calcium 40 mg 08/26/25 09:00 05/11/25 11:20 Atorvastatin 40 Mg Tablet PO Not Given DAILY [facility] Bupropion HCl 150 mg 05/10/25 09:00 05/11/25 11:20 Bupropion Hcl Xl (24 Hr) 150 Mg Tabcr PO Not Given DAILY [facility] Donepezil HCl 10 mg 05/10/25 09:00 05/11/25 11:20 Donepezil Hcl 10 Mg Tablet PO Not Given DAILY [facility] Fentanyl Citrate 25 mcg 05/11/25 12:01 Fentanyl Citrate Inj (*Crx) 100 Mcg/2 Ml Vial IV PUSH Q2M PRN Pain Ciprofloxacin/Dextrose 200 mls @ 200 mls/hr 05/10/25 15:00 05/11/25 21:57 Cipro 400 Mg/D5w 200 Ml IVPB Infused Q12HR [facility] Infusion Lactated Ringer's 1,000 mls @ 30 mls/hr 05/11/25 12:05 05/11/25 13:49 Lr - Lactated Ringers Iv IV CONT Infused .Q24H [facility] Infusion Lactated Ringer's 1,000 mls @ 30 mls/hr 05/11/25 12:05 05/11/25 15:52 Lr - Lactated Ringers Iv IV CONT Not Given .Q24H [facility] Sodium Chloride 1,000 mls @ 125 mls/hr 05/11/25 15:55 05/12/25 00:31 Normal Saline Iv IV CONT 125 mls/hr .Q8H [facility] Administration Lacosamide 200 mg 05/09/25 22:35 05/11/25 20:57 Lacosamide (*Crx) 200 Mg Tablet PO 200 mg Q12HR [facility] Administration Lisinopril 40 mg 05/10/25 09:00 05/11/25 11:20 Lisinopril 20 Mg Tablet PO Not Given QAM [facility] Metoprolol Succinate 50 mg 05/10/25 09:00 05/11/25 14:27 Metoprolol Succinate Ext Rel 50 Mg Tabcr PO Not Given DAILY [facility] Ondansetron HCl 4 mg 05/09/25 13:24 Ondansetron Hcl Odt 4 Mg Tablet PO Q4H PRN Nausea And Vomiting Ondansetron HCl 4 mg 05/11/25 12:01 Ondansetron Inj 4 Mg/2 Ml Vial IV PUSH ONCE PRN Nausea Radiology Results: ITS Impressions Head CT 05/09/25 12:10 IMPRESSION: 1. Few old lacunar infarcts in the right basal ganglia and in the coronal radiata of the bilateral frontal and right parietal lobes. No acute intracranial process. 2. Age-related changes including mild to moderate diffuse volume loss and extensive scattered white matter hypoattenuation consistent with chronic small vessel ischemic disease. Chest/Abdomen/Pelvis CT 05/09/25 12:34 IMPRESSION: 1. Prostatomegaly with surrounding from trace stranding also extending around the bilateral seminal vesicles which raises concern for prostatitis. 2. No acute cardiopulmonary disease or other acute intra-abdominal/pelvic process. Labs Labs: Laboratory Results - last 24 hr 05/11/25 21:10 POC Capillary Glucose 157 H Quality VTE Prophylaxis VTE prophylaxis: pharmacologic ordered
[2025-05-12] MEDS: METOPROLOL TARTRATE INJ 5 MG/5 ML VIAL IV PUSH (09:07)
[2025-05-12] MEDS: ATORVASTATIN 40 MG TABLET PO (09:08)
[2025-05-12] MEDS: buPROPion HCL XL (24 HR) 150 MG TABCR PO (09:08)
[2025-05-12] MEDS: DONEPEZIL HCL 10 MG TABLET PO (09:08)
[2025-05-12] MEDS: LACOSAMIDE (*CRX) 200 MG TABLET PO ×2 (09:08→20:49)
[2025-05-12] MEDS: METOPROLOL SUCCINATE EXT REL 50 MG TABCR PO (09:08)
[2025-05-12] MEDS: CIPROFLOXACIN 400 MG/D5W 200ML 200 ML 200 MG IVPB ×2 (09:09→20:49)
[2025-05-12 09:30] LABS: Hematocrit 26.2 % (42.0-52.0); Hemoglobin 9.0 g/dL (14.0-18.0); Mean Corpuscular HGB Conc 34.4 g/dl (32-36); Mean Corpuscular Hemoglobin 31.4 pg (26-34); Mean Corpuscular Volume 91.3 fl (80-100); Platelet Count Result 348 k/mm3 (150-375); Red Blood Count 2.87 M/mm3 (4.6-6.20); White Blood Count 27.9 K/mm3 (4.5-10.0)
--- NOTE | 2025-05-12 09:42 | P.PNAN_ITS ---
Anes - Prog Note Post-Op Date/Time: 05/12/25 09:42 Cardiovascular status: normal Respiratory status: normal Airway patency: baseline Mental status: baseline Post-Op hydration status: normal Vital Signs: Last Vital Signs Temp 36.9 C 05/12/25 07:56 Pulse 158 H 05/12/25 09:08 Resp 20 05/12/25 07:56 BP 142/90 H 05/12/25 07:56 Pulse Ox 100 05/12/25 09:15 O2 Del Method Room Air 05/12/25 09:15 O2 Flow Rate 2 05/11/25 13:45 FiO2 21 05/12/25 09:15 Pain Score (VAS): 2 I/O: Intake & Output 05/11/25 05/12/25 05/12/25 23:59 07:59 15:59 Intake Total 200 7000 Output Total 2375 650 Balance -2175 6350 05/11/25 05/12/25 21:10 09:10 WBC Pending RBC Pending Hgb Pending Hct Pending MCV Pending MCH Pending MCHC Pending RDW Pending Plt Count Pending MPV Pending Immature Gran % (Auto) Pending Neut % (Auto) Pending Lymph % (Auto) Pending [place] % (Auto) Pending Eos % (Auto) Pending Baso % (Auto) Pending Lymph # (Auto) Pending [place] # (Auto) Pending Eos # (Auto) Pending Baso # (Auto) Pending Abs Immat Gran (auto) Pending Absolute Neuts (auto) Pending Absolute Nucleated RBC Pending Nucleated RBC % Pending Sodium Pending Potassium Pending Chloride Pending Carbon Dioxide Pending Anion Gap Pending BUN Pending Creatinine Pending Estim Creat Clear Calc Pending Estimated GFR Pending Glucose Pending POC Capillary Glucose 157 H Calcium Pending Total Bilirubin Pending AST Pending ALT Pending Alkaline Phosphatase Pending Total Protein Pending Albumin Pending Microbiology 05/09/25 15:11 Blood Blood Culture - Preliminary 05/09/25 15:10 Blood Blood Culture - Preliminary Patient Feedback: Patient satisfied with anesthetic care.
[2025-05-12 09:51] LABS: Alanine Aminotransferase 25 U/L (6-50); Albumin Level 3.3 g/dL (3.5-5.1); Alkaline Phosphatase 89 U/L (38-126); Anion Gap 10 mmol/L (4-12); Aspartate Amino Transferase 40 U/L (17-59); Bilirubin,Total 0.8 mg/dL (0.2-1.3); Blood Urea Nitrogen 18 mg/dL (9-20); Calcium 8.6 mg/dL (8.4-10.2); Carbon Dioxide 23 mmol/L (22-30); Chloride 107 mmol/L (98-107); Estimated CRCL calculation 60 ml/min; Estimated Glomerular Filt Rate > 60; Glucose 179 mg/dL (65-110); Potassium 3.5 mmol/L (3.4-5.0); Sodium 140 mmol/L (137-145); Total Protein 5.9 g/dL (6.3-8.2)
--- NOTE | 2025-05-12 09:54 | PCSTNOTE ---
Please refer to the Bedside Swallow Evaluation in the EMR. Please note, silent aspiration cannot be ruled out at bedside. Sylvester is a 71 year old male who presents at the hospital this admission for a unresponsive event at his fpc due to possible aspiration. Pt has a relevant history of dementia and corticobasal syndrome. This greatly impacts his motor abilities and ability to follow commands and communicate effectively. Due to concern for aspiration, a bedside swallow evaluation was ordered. Upon [employer] SUPPORT [employer]IST arrival, pt was A&Ox0, but was alert and attempted to answer the [employer] SU[employer]IST's questions. Pt was noted to have consistent tremors of his arm throughout the evaluation. An oral mechanism exam was attempted but limited due to minimal command following. The oral mechanism exam was remarkable for a left facial droop at rest and during muscle activation. RN (Gaby) and (Cody) notified of this observation. Through observations with PO trials, pt demonstrated adequate use of tongue and lips. Pt was repositioned upright in bed prior to PO trials. PO trials included thin liquids (via tsp, cup (drink x2), straw (sip, 3oz)), puree x2, and hard solid x2. Across all consistencies and volumes, the pt demonstrated adequate mastication (hard solid), oral clearance, and timely initiation of the swallow. The pt did not demonstrate any overt signs and symptoms of aspiration across all volumes and consistencies. Given this presentation, a regular diet (level 7) and thin liquids (level 1) are recommended and no further ST services are indicated. Of note, it is recommended that Sylvester have one-to-one supervision with all meals and PO due to the significant motor difficulties and memory impairments. Supervision should aid with feedings and ensure proper pacing of meals due potential impulsivity throughout the course of a meal. RN Francoise) and (Cody) notified of these recommendations. Recommendations: 1. Level 7 (Regular Diet) and Level 0 (Thin liquids) with STRICT 1 to 1 supervision with all PO 2. Upright, small bites and sips, 1 to [address] services indicated at this time. Please re-consult ST if further concerns arise.
[2025-05-12 09:58] LABS: Band Neutrophils Percent 78 % (0-6); Lymphocytes Absolute Manual 1.11 K/mm3 (1.1-4.5); Lymphocytes Percent Manual 4 % (18-44); Monocytes Absolute Manual 1.67 K/mm3 (0.1-0.90); Monocytes Percent Manual 6 % (3-9); Neutrophils Absolute Manual 25.11 K/mm3 (1.3-6.7); Neutrophils Percent Manual 12 % (46-73); Smudge Cells FEW; Total Cells Counted 100
[2025-05-12 09:59] LABS: Anisocytosis 1+; Burr Cells 1+; Hypochromasia Occasional; Ovalocytes 1+; Polychromasia Occasional; Schistocytes None Seen
[2025-05-13] VITALS (12 sets, daily range): BP systolic 136–180; BP diastolic 72–131; PULSE 80–125; RESP 16–20; TEMP 36.4–37.1; O2SAT 98–100
[2025-05-13 04:28] LABS: Hematocrit 24.3 % (42.0-52.0); Hemoglobin 8.2 g/dL (14.0-18.0); Immature Granulocyte Percent A 0.9 % (0-0.5); Lymphocytes Absolute Auto 1.35 K/mm3 (0.9-3.2); Mean Corpuscular HGB Conc 33.7 g/dl (32-36); Mean Corpuscular Hemoglobin 31.4 pg (26-34); Mean Corpuscular Volume 93.1 fl (80-100); Nucleated Red Blood Cells Absolute Auto 0.000 K/mm3 (0.0-0.012); Nucleated Red Blood Cells Perc 0.0 % (0.0-0.2); Platelet Count Result 344 k/mm3 (150-375); Red Blood Count 2.61 M/mm3 (4.6-6.20); White Blood Count 13.5 K/mm3 (4.5-10.0)
[2025-05-13 04:43] LABS: Alanine Aminotransferase 28 U/L (6-50); Albumin Level 3.0 g/dL (3.5-5.1); Alkaline Phosphatase 80 U/L (38-126); Anion Gap 5 mmol/L (4-12); Aspartate Amino Transferase 45 U/L (17-59); Bilirubin,Total 0.6 mg/dL (0.2-1.3); Blood Urea Nitrogen 16 mg/dL (9-20); Calcium 7.9 mg/dL (8.4-10.2); Carbon Dioxide 26 mmol/L (22-30); Chloride 108 mmol/L (98-107); Estimated CRCL calculation 61 ml/min; Estimated Glomerular Filt Rate > 60; Glucose 118 mg/dL (65-110); Potassium 3.2 mmol/L (3.4-5.0); Sodium 139 mmol/L (137-145); Total Protein 5.4 g/dL (6.3-8.2)
[2025-05-13] MEDS: SODIUM CHLORIDE 0.9% IV 1,000 ML 125 ML IV CONT ×2 (05:59→18:43)
[2025-05-13] MEDS: LACOSAMIDE (*CRX) 200 MG TABLET PO ×2 (08:55→21:38)
[2025-05-13] MEDS: buPROPion HCL XL (24 HR) 150 MG TABCR PO (08:55)
[2025-05-13] MEDS: ATORVASTATIN 40 MG TABLET PO (08:55)
[2025-05-13] MEDS: DONEPEZIL HCL 10 MG TABLET PO (08:55)
[2025-05-13] MEDS: METOPROLOL SUCCINATE EXT REL 50 MG TABCR PO (08:55)
[2025-05-13] MEDS: CIPROFLOXACIN 400 MG/D5W 200ML 200 ML 200 MG IVPB (08:55)
[2025-05-13] MEDS: POTASSIUM CHLORIDE 20 MEQ ER TABLET PO (11:44)
--- NOTE | 2025-05-13 12:32 | P.PNIM_ITS ---
Progress Note: A&P Assessment and Plan (1) Sepsis: Code(s): A41.9 - Sepsis, unspecified organism Status: Acute Assessment and Plan: * sepsis present on admission as evidenced by tachycardia, tachypnea, leukocyto sis * BP stable, LA WNL * source: UTI with possible prostatitis * received 1L bolus in ED followed by LR 125cc/hr overnight * management of UTI as below * Blood culture shows NGTD * Urine culture still pending * Leukocytosis remains elevated - could be 2/2 to procedure, monitor on am labs * WBC down from 27.9 -> 13.5 * Continue to monitor labs, cultures (2) AMS (altered mental status): Qualifiers: Altered mental status type: delirium Qualified Code(s): R41.0 - Disorientation, unspecified Code(s): R41.82 - Altered mental status, unspecified Status: Acute Assessment and Plan: * Head CT, 05/09 with no acute process, old lacunar infarcts in the R basal ganglia and coronal radiata of the bilateral frontal and right parietal lobes. Age-related changes. * recent dx of CVA on 04/23. MRI showed a small acute infarct at the genu of the right corpus callosum and several old lacunar infarcts at the right basal ganglia and right frontal and parietal lobe dobbins radiata. * developed agitation during last admission, thought to be secondary to CVA vs. side effect of Keppra so was transitioned to Lacosamide * UDS + for cannabis 04/22 * UA consistent with UTI * suspect worsening mental status secondary to acute UTI/prostatitis. Management as below. * If no improvement with treatment, consider neurology re-evaluation. * Mentation continues to improved - accompanied by partner who states that the patient appears much closer to baseline today (3) UTI (urinary tract infection): Qualifiers: Urinary tract infection type: acute cystitis Hematuria presence: without hematuria Qualified Code(s): N30.00 - Acute cystitis without hematuria Code(s): N39.0 - Urinary tract infection, site not specified Status: Acute Assessment and Plan: * UA: Cloudy, 1+ protein, 1+ ketones, 3+ blood, 3+ leuk esterase, 21-50 RBC, greater than 100 WBC, WBC clumps present, no epithelial * concern for prostatitis per CT * UCx pending * no previous micro urine available for review * leukocytosis increasing. Afebrile. Otherwise nonseptic. * Started on IV Ciprofloxacin - switched to oral on 05/13 (4) Prostatitis: Qualifiers: Prostatitis type: acute Qualified Code(s): N41.0 - Acute prostatitis Code(s): N41.9 - Inflammatory disease of prostate, unspecified Status: Acute Assessment and Plan: * CT showed indicators of prostatitis * started on ceftriaxone on 05/09 * urology consulted * Stat cystoscopy with clot evacuation and complex Viera catheter insertion * During operation, significant blood clot in obvious injury to the membranous urethra, [address] placed. * Started on Ciprofloxacin IV switched to Oral on 05/13 * Per urology: * Urine clear on slow CBI. Will slow CBI and get catheter out as soon as we comfortable urine will remain clear. (5) Anemia: Qualifiers: Anemia type: unspecified type Qualified Code(s): D64.9 - Anemia, unspecified Code(s): D64.9 - Anemia, unspecified Status: Acute Assessment and Plan: * Hgb 12.3 upon admission on 05/09. 15.7 at discharge on 04/29. * Check iron, TIBC, ferritin, B12, folic acid, and stool guaiac. * TSH 3.23 on 04/28 * Transfuse if <7 * Trend H&H * Of note, recently started on Eliquis and Plavix secondary to acute stroke earlier this month * 05/13: Hgb 8.2 (6) History of CVA (cerebrovascular accident): Code(s): Z86.73 - Personal history of transient ischemic attack (TIA), and cerebral infarction without residual deficits Status: Chronic Assessment and Plan: * Brain MRI, 04/23 with small acute infarct at the genu of the right corpus callosum, several old lacunar infarcts, multiple small foci of susceptibility artifact scattered throughout the brain including the cerebral hemispheres, midbrain and cerebellum consistent with chronic microhemorrhage typically seen in the setting of hypertension but can also be seen with amyloid angiopathy. * worsening AMS likely secondary to UTI, however could be sequela of recent CVA. started on abx, monitor response. * discussed with Dr. Miguel falk to stop ASA, Plavix as patient was found to have Afib on last admission. Continue Eliquis. (7) Seizure disorder: Code(s): G40.909 - Epilepsy, unspecified, not intractable, without status epilepticus Status: Chronic Assessment and Plan: * continue lacosamide (switched from Keppra due to agitation on last admit) (8) Atrial fibrillation: Qualifiers: Atrial fibrillation type: unspecified chronic Qualified Code(s): I48.20 - Chronic atrial fibrillation, unspecified Code(s): I48.91 - Unspecified atrial fibrillation Status: Chronic Assessment and Plan: * continue home medications: Metoprolol, Eliquis (9) Hyperglycemia: Code(s): R73.9 - Hyperglycemia, unspecified Status: Chronic Assessment and Plan: * glucose 184 upon admission * A1C 5.9% on 04/25/25 (10) Hypertension: Qualifiers: Hypertension type: essential hypertension Qualified Code(s): I10 - Essential (primary) hypertension Code(s): I10 - Essential (primary) hypertension Status: Chronic Assessment and Plan: * chronic, currently 123/50 * continue home medications: Lisinopril, metoprolol * monitor Plan DVT Prophylaxis: Anam Disposition: TBD Code Status: Full code Subjective Date/time seen: 05/13/25 12:32 Interval history: 69 y/o M with PMH of recent CVA, atrial fibrillation, and HTN presents here with AMS. 05/13/2025 Patient resting comfortably in bed at time of examination. Accompanied by partner who states that patient appears improved today. Pt denies any pain or complaints - denies any CP, SOB, n/v or abd pain. CBI still in place, urology hopes to void trial today. WBC down from 27.9 -> 13.5. BCs show NGTD, UC pending. Spoke with ID pharmacist - switch to oral Ciprofloxacin. Monitor cultures and labs. PT recommends SNF - working with CC for placement. Review of Systems Review of Systems: All systems reviewed & are unremarkable except as noted in HPI and below Exam Narrative: General: NAD, disheveled Eyes: EOMI ENT: neck supple Cardiovascular: Regular rate and rhythm Respiratory: Clear to auscultation, respirations even and unlabored on RA Gastrointestinal: Soft, non tender Genitourinary: no suprapubic tenderness, catheter patent and draining - clear Musculoskeletal: No edema Skin: warm, dry Neuro: Alert. Psych: Mood appropriate Const: General: comfortable and no acute distress Other: , male, elderly, nontoxic appearance HENMT: Face/Nose/Sinus: Normal nares present Mouth: Yes moist mucous membranes Eyes: General: appearance normal, both eyes and all related structures Sclera: sclerae normal Pupils: Equal, round and reactive pupils present EOM: EOMs intact bilaterally Resp: Effort & Inspection: normal respiratory effort Auscultation: clear to auscultation bilaterally Cardio: Rate: regular rate Rhythm: regular rhythm Other: S1-S2 present without murmur, rub, ectopy GI: Other: Abdomen soft, nondistended, nontender. Normoactive bowel sounds in all quadrants. Skin: General skin exam: normal color and no rashes or lesions noted Wounds: no wounds Neuro: Cranial nerves: Yes Equal, round and reactive pupils present Speech: normal speech Motor exam (neuro): 5/5 motor strength present throughout Sensory Exam: normal sensation Other: A/Ox3, no tremors or involuntary movements appreciated. Extrem: General: normal to inspection Psych: Mental Status: mental status grossly normal Affect: normal affect Other: Fair insight and judgment, pleasant, no agitation noted. Objective Data Vital Signs Vital Signs: Vital Signs - 24 hr 05/12/25 14:00 05/12/25 16:00 05/12/25 16:24 Temperature 98.6 F Pulse Rate 116 H 115 H 114 H Respiratory Rate 18 Blood Pressure 143/84 H Pulse Oximetry 97 Oxygen Delivery 05/12/25 18:00 05/12/25 20:00 05/12/25 20:00 Temperature Pulse Rate 116 H 108 H Respiratory Rate Blood Pressure Pulse Oximetry Oxygen Delivery Room Air 05/12/25 20:07 05/12/25 22:00 05/12/25 23:58 Temperature 98.1 F 98.1 F Pulse Rate 108 H 90 102 H Respiratory Rate 16 18 Blood Pressure 144/87 H 144/80 H Pulse Oximetry 99 97 Oxygen Delivery 05/13/25 00:00 05/13/25 00:00 05/13/25 02:00 Temperature Pulse Rate 107 H 98 Respiratory Rate Blood Pressure Pulse Oximetry Oxygen Delivery Room Air 05/13/25 04:00 05/13/25 04:00 05/13/25 04:00 Temperature 98.1 F Pulse Rate 118 H 101 H Respiratory Rate 16 Blood Pressure 180/94 H Pulse Oximetry 98 Oxygen Delivery Room Air 05/13/25 06:00 05/13/25 08:00 05/13/25 08:00 Temperature Pulse Rate 108 H 124 H Respiratory Rate Blood Pressure Pulse Oximetry Oxygen Delivery Room Air 05/13/25 08:14 05/13/25 11:48 Temperature 98.1 F 98.5 F Pulse Rate 107 H 88 Respiratory Rate 20 Blood Pressure 156/85 H 136/82 Pulse Oximetry 99 98 Oxygen Delivery Intake/Output Intake/Output: Intake & Output 05/10/25 05/11/25 05/12/25 05/13/25 23:59 23:59 23:59 23:59 Intake Total 2470 800 16924.4 5730 Output Total 4175 1875 2100 Balance 7590 -0445 40068.4 3630 Meds/Results Medications: Active Medications Generic Name Dose Route Start Last Admin Trade Name Freq PRN Reason Stop Dose Admin Acetaminophen 650 mg 05/09/25 13:23 Acetaminophen 325 Mg Tablet PO Q6H PRN Pain Rated 1-3 Atorvastatin Calcium 40 mg 05/10/25 09:00 05/13/25 08:55 Atorvastatin 40 Mg Tablet PO 40 mg DAILY JUSTINA Administration Bupropion HCl 150 mg 05/10/25 09:00 05/13/25 08:55 Bupropion Hcl Xl (24 Hr) 150 Mg Tabcr PO 150 mg DAILY JUSTINA Administration Ciprofloxacin 500 mg 05/13/25 21:00 Ciprofloxacin 500 Mg Tab PO Q12HR [facility] Donepezil HCl 10 mg 05/10/25 09:00 05/13/25 08:55 Donepezil Hcl 10 Mg Tablet PO 10 mg DAILY JUSTINA Administration Fentanyl Citrate 25 mcg 05/11/25 12:01 Fentanyl Citrate Inj (*Crx) 100 Mcg/2 Ml Vial IV PUSH Q2M PRN Pain Hydralazine HCl 10 mg 05/13/25 05:42 05/13/25 05:59 Hydralazine Hcl 20 Mg/Ml Vial IV PUSH 10 mg Q4H PRN Administration SYSTOLIC BP >160 Sodium Chloride 1,000 mls @ 125 mls/hr 05/11/25 15:55 05/13/25 05:59 Normal Saline Iv IV CONT 125 mls/hr .Q8H JUSTINA Administration Lacosamide 200 mg 05/09/25 22:35 05/13/25 08:55 Lacosamide (*Crx) 200 Mg Tablet PO 200 mg Q12HR JUSTINA Administration Lisinopril 40 mg 05/10/25 09:00 05/13/25 08:55 Lisinopril 20 Mg Tablet PO 40 mg QAM JUSTINA Administration Metoprolol Succinate 50 mg 05/10/25 09:00 05/13/25 08:55 Metoprolol Succinate Ext Rel 50 Mg Tabcr PO 50 mg DAILY [facility] Administration Ondansetron HCl 4 mg 05/09/25 13:24 Ondansetron Hcl Odt 4 Mg Tablet PO Q4H PRN Nausea And Vomiting Ondansetron HCl 4 mg 05/11/25 12:01 Ondansetron Inj 4 Mg/2 Ml Vial IV PUSH ONCE PRN Nausea Radiology Results: ITS Impressions Head CT 05/09/25 12:10 IMPRESSION: 1. Few old lacunar infarcts in the right basal ganglia and in the coronal radiata of the bilateral frontal and right parietal lobes. No acute intracranial process. 2. Age-related changes including mild to moderate diffuse volume loss and extensive scattered white matter hypoattenuation consistent with chronic small vessel ischemic disease. Chest/Abdomen/Pelvis CT 05/09/25 12:34 IMPRESSION: 1. Prostatomegaly with surrounding from trace stranding also extending around the bilateral seminal vesicles which raises concern for prostatitis. 2. No acute cardiopulmonary disease or other acute intra-abdominal/pelvic process. Labs Labs: Laboratory Results - last 24 hr 05/13/25 03:55 WBC 13.5 H RBC 2.61 L Hgb 8.2 L Hct 24.3 L MCV 93.1 MCH 31.4 MCHC 33.7 RDW 14.1 Plt Count 344 MPV 9.1 Immature Gran % (Auto) 0.9 H Neut % (Auto) 80.6 H Lymph % (Auto) 10.0 L [place] % (Auto) 7.8 Eos % (Auto) 0.4 Baso % (Auto) 0.3 Lymph # (Auto) 1.35 [place] # (Auto) 1.1 H Eos # (Auto) 0.1 Baso # (Auto) 0.0 Abs Immat Gran (auto) 0.12 H Absolute Neuts (auto) 10.8 H Absolute Nucleated RBC 0.000 Nucleated RBC % 0.0 Sodium 139 Potassium 3.2 L Chloride 108 H Carbon Dioxide 26 Anion Gap 5 BUN 16 Creatinine 0.92 Estim Creat Clear Calc 61 Estimated GFR > 60 Glucose 118 H Calcium 7.9 L Total Bilirubin 0.6 AST 45 ALT 28 Alkaline Phosphatase 80 Total Protein 5.4 L Albumin 3.0 L Quality VTE Prophylaxis VTE prophylaxis: pharmacologic ordered
--- NOTE | 2025-05-13 16:25 | P.PNUR_ITS ---
Progress Note: A&P Assessment and Plan (1) Prostatitis: Qualifiers: Prostatitis type: acute Qualified Code(s): N41.0 - Acute prostatitis Code(s): N41.9 - Inflammatory disease of prostate, unspecified Status: Acute (2) Gross hematuria: Code(s): R31.0 - Gross hematuria Status: Acute Assessment and Plan: * Urine clear on no CBI. discussed case with Dr. Coppola. Urine was still clear at lunch time today. I removed his catheter without incident. * Urine cx. pending. Subjective Subjective Date/Time Seen: 05/13/25 16:25 Interval history: patient comfortable in bed with clear urine with paused cbi this morning and at lunch time. Review of Systems Review of Systems: All systems reviewed & are unremarkable except as noted in HPI and below Exam Narrative: General: The patient is well-developed in no acute distress. Appears comfortable on exam. HEENT: Normocephalic, normal ear and nose structures Skin: Warm, dry, with no lesions seen on visible skin Lungs: Normal respiratory effort Heart: Appears well perfused Abdomen: Nondistended Suprapubic area: Nondistended Extremities: Upper with no deformities. Lower - no edema Neurologic: The patient is oriented to person. Easily redirected. Normal mood and affect. Const: General: no acute distress, in distress and uncomfortable Eyes: General: appearance normal, both eyes and all related structures Neck: Neck: supple Resp: Effort & Inspection: normal respiratory effort GI: Inspection: non-distended Auscultation: normal bowel sounds : General: No bladder normal to palpation (bladder distended to umbilicus) Urinary Catheter: Urinary Catheter: patent and draining (will remove if still clear at lunch time. ) and urine clear Skin: General skin exam: normal color Neuro: Speech: normal speech Psych: Mental Status: mental status grossly abnormal (confused and pulling at stuff. bilateral wrist restraints. ) Affect: Anxious affect present Objective Data Vital Signs Vital Signs: Vital Signs - 24 hr 05/12/25 18:00 05/12/25 20:00 05/12/25 20:00 Temperature Pulse Rate 116 H 108 H Respiratory Rate Blood Pressure Pulse Oximetry Oxygen Delivery Room Air 05/12/25 20:07 05/12/25 22:00 05/12/25 23:58 Temperature 98.1 F 98.1 F Pulse Rate 108 H 90 102 H Respiratory Rate 16 18 Blood Pressure 144/87 H 144/80 H Pulse Oximetry 99 97 Oxygen Delivery 05/13/25 00:00 05/13/25 00:00 05/13/25 02:00 Temperature Pulse Rate 107 H 98 Respiratory Rate Blood Pressure Pulse Oximetry Oxygen Delivery Room Air 05/13/25 04:00 05/13/25 04:00 05/13/25 04:00 Temperature 98.1 F Pulse Rate 118 H 101 H Respiratory Rate 16 Blood Pressure 180/94 H Pulse Oximetry 98 Oxygen Delivery Room Air 05/13/25 06:00 05/13/25 08:00 05/13/25 08:00 Temperature Pulse Rate 108 H 124 H Respiratory Rate Blood Pressure Pulse Oximetry Oxygen Delivery Room Air 05/13/25 08:14 05/13/25 11:48 05/13/25 12:00 Temperature 98.1 F 98.5 F Pulse Rate 107 H 88 101 H Respiratory Rate 20 Blood Pressure 156/85 H 136/82 Pulse Oximetry 99 98 Oxygen Delivery Intake/Output Intake/Output: Intake & Output 05/10/25 05/11/25 05/12/25 05/13/25 23:59 23:59 23:59 23:59 Intake Total 2470 800 78350.4 5730 Output Total 4175 1875 2100 Balance 2470 -7025 46308.4 3630 Meds/Results Medications: Active Medications Generic Name Dose Route Start Last Admin Trade Name Freq PRN Reason Stop Dose Admin Acetaminophen 650 mg 05/09/25 13:23 Acetaminophen 325 Mg Tablet PO Q6H PRN Pain Rated 1-3 Atorvastatin Calcium 40 mg 05/10/25 09:00 05/13/25 08:55 Atorvastatin 40 Mg Tablet PO 40 mg DAILY JUSTINA Administration Bupropion HCl 150 mg 05/10/25 09:00 05/13/25 08:55 Bupropion Hcl Xl (24 Hr) 150 Mg Tabcr PO 150 mg DAILY JUSTINA Administration Ciprofloxacin 500 mg 05/13/25 21:00 Ciprofloxacin 500 Mg Tab PO Q12HR [facility] Donepezil HCl 10 mg 05/10/25 09:00 05/13/25 08:55 Donepezil Hcl 10 Mg Tablet PO 10 mg DAILY JUSTINA Administration Fentanyl Citrate 25 mcg 05/11/25 12:01 Fentanyl Citrate Inj (*Crx) 100 Mcg/2 Ml Vial IV PUSH Q2M PRN Pain Hydralazine HCl 10 mg 05/13/25 05:42 05/13/25 05:59 Hydralazine Hcl 20 Mg/Ml Vial IV PUSH 10 mg Q4H PRN Administration SYSTOLIC BP >160 Sodium Chloride 1,000 mls @ 125 mls/hr 05/11/25 15:55 05/13/25 05:59 Normal Saline Iv IV CONT 125 mls/hr .Q8H JUSTINA Administration Lacosamide 200 mg 05/09/25 22:35 05/13/25 08:55 Lacosamide (*Crx) 200 Mg Tablet PO 200 mg Q12HR JUSTINA Administration Lisinopril 40 mg 05/10/25 09:00 05/13/25 08:55 Lisinopril 20 Mg Tablet PO 40 mg QAM JUSTINA Administration Metoprolol Succinate 50 mg 05/10/25 09:00 05/13/25 08:55 Metoprolol Succinate Ext Rel 50 Mg Tabcr PO 50 mg DAILY JUSTINA Administration Ondansetron HCl 4 mg 05/09/25 13:24 Ondansetron Hcl Odt 4 Mg Tablet PO Q4H PRN Nausea And Vomiting Ondansetron HCl 4 mg 05/11/25 12:01 Ondansetron Inj 4 Mg/2 Ml Vial IV PUSH ONCE PRN Nausea Radiology Results: ITS Impressions Head CT 05/09/25 12:10 IMPRESSION: 1. Few old lacunar infarcts in the right basal ganglia and in the coronal radiata of the bilateral frontal and right parietal lobes. No acute intracranial process. 2. Age-related changes including mild to moderate diffuse volume loss and extensive scattered white matter hypoattenuation consistent with chronic small vessel ischemic disease. Chest/Abdomen/Pelvis CT 05/09/25 12:34 IMPRESSION: 1. Prostatomegaly with surrounding from trace stranding also extending around the bilateral seminal vesicles which raises concern for prostatitis. 2. No acute cardiopulmonary disease or other acute intra-abdominal/pelvic process. Labs Labs: Laboratory Results - last 24 hr 05/13/25 03:55 WBC 13.5 H RBC 2.61 L Hgb 8.2 L Hct 24.3 L MCV 93.1 MCH 31.4 MCHC 33.7 RDW 14.1 Plt Count 344 MPV 9.1 Immature Gran % (Auto) 0.9 H Neut % (Auto) 80.6 H Lymph % (Auto) 10.0 L [place] % (Auto) 7.8 Eos % (Auto) 0.4 Baso % (Auto) 0.3 Lymph # (Auto) 1.35 [place] # (Auto) 1.1 H Eos # (Auto) 0.1 Baso # (Auto) 0.0 Abs Immat Gran (auto) 0.12 H Absolute Neuts (auto) 10.8 H Absolute Nucleated RBC 0.000 Nucleated RBC % 0.0 Sodium 139 Potassium 3.2 L Chloride 108 H Carbon Dioxide 26 Anion Gap 5 BUN 16 Creatinine 0.92 Estim Creat Clear Calc 61 Estimated GFR > 60 Glucose 118 H Calcium 7.9 L Total Bilirubin 0.6 AST 45 ALT 28 Alkaline Phosphatase 80 Total Protein 5.4 L Albumin 3.0 L
--- NOTE | 2025-05-13 18:29 | PC.NURSE ---
Received from [facility] 232/ via bed.
[2025-05-13] MEDS: CIPROFLOXACIN 500 MG TAB PO (21:38)
[2025-05-13] MEDS: LIDOCAINE 2% GEL UROJET 10 ML PKG MUCOUS MEM (22:51)
[2025-05-13] MEDS: TAMSULOSIN HCL 0.4 MG CAPSULE PO (22:51)
[2025-05-14] VITALS (8 sets, daily range): BP systolic 135–142; BP diastolic 72–84; PULSE 89–121; RESP 16–20; TEMP 36.5–37; O2SAT 100
[2025-05-14 04:39] LABS: Hematocrit 24.5 % (42.0-52.0); Hemoglobin 8.4 g/dL (14.0-18.0); Immature Granulocyte Percent A 2.2 % (0-0.5); Lymphocytes Absolute Auto 1.35 K/mm3 (0.9-3.2); Mean Corpuscular HGB Conc 34.3 g/dl (32-36); Mean Corpuscular Hemoglobin 31.2 pg (26-34); Mean Corpuscular Volume 91.1 fl (80-100); Nucleated Red Blood Cells Absolute Auto 0.020 K/mm3 (0.0-0.012); Nucleated Red Blood Cells Perc 0.2 % (0.0-0.2); Platelet Count Result 341 k/mm3 (150-375); Red Blood Count 2.69 M/mm3 (4.6-6.20); White Blood Count 9.0 K/mm3 (4.5-10.0)
[2025-05-14 05:10] LABS: Alanine Aminotransferase 26 U/L (6-50); Albumin Level 3.1 g/dL (3.5-5.1); Alkaline Phosphatase 75 U/L (38-126); Anion Gap 5 mmol/L (4-12); Aspartate Amino Transferase 36 U/L (17-59); Bilirubin,Total 0.6 mg/dL (0.2-1.3); Blood Urea Nitrogen 9 mg/dL (9-20); Calcium 8.1 mg/dL (8.4-10.2); Carbon Dioxide 28 mmol/L (22-30); Chloride 102 mmol/L (98-107); Estimated CRCL calculation 72 ml/min; Estimated Glomerular Filt Rate > 60; Glucose 114 mg/dL (65-110); Potassium 3.1 mmol/L (3.4-5.0); Sodium 135 mmol/L (137-145); Total Protein 5.6 g/dL (6.3-8.2)
[2025-05-14 05:16] LABS: Anisocytosis 1+; Hypochromasia 1+; Ovalocytes 1+; Polychromasia Occasional; Schistocytes None Seen; Smudge Cells PRESENT
[2025-05-14] MEDS: SODIUM CHLORIDE 0.9% IV 1,000 ML 125 ML IV CONT (06:39)
--- NOTE | 2025-05-14 06:57 | P.PNIM_ITS ---
Progress Note: A&P Assessment and Plan (1) Sepsis: Code(s): A41.9 - Sepsis, unspecified organism Status: Acute Assessment and Plan: * sepsis present on admission as evidenced by tachycardia, tachypnea, leukocyto sis * BP stable, LA WNL * source: UTI with possible prostatitis * received 1L bolus in ED followed by LR 125cc/hr overnight * management of UTI as below * Blood culture shows NGTD * Urine culture still pending * Leukocytosis remains elevated - could be 2/2 to procedure, monitor on am labs * WBC down from 27.9 -> 13.5 -> 9.0 * Continue to monitor labs, cultures (2) AMS (altered mental status): Qualifiers: Altered mental status type: delirium Qualified Code(s): R41.0 - Disori entation, unspecified Code(s): R41.82 - Altered mental status, unspecified Status: Acute Assessment and Plan: * Head CT, 05/09 with no acute process, old lacunar infarcts in the R basal ganglia and coronal radiata of the bilateral frontal and right parietal lobes. Age-related changes. * recent dx of CVA on 04/23. MRI showed a small acute infarct at the genu of the right corpus callosum and several old lacunar infarcts at the right basal ganglia and right frontal and parietal lobe dobbins radiata. * developed agitation during last admission, thought to be secondary to CVA vs. side effect of Keppra so was transitioned to Lacosamide * UDS + for cannabis 04/22 * UA consistent with UTI * suspect worsening mental status secondary to acute UTI/prostatitis. Management as below. * If no improvement with treatment, consider neurology re-evaluation. * Mentation continues to improved - accompanied by partner who states that the patient appears much closer to baseline today (3) UTI (urinary tract infection): Qualifiers: Hematuria presence: without hematuria Urinary tract infection type: acute cystitis Qualified Code(s): N30.00 - Acute cystitis without hematuria Code(s): N39.0 - Urinary tract infection, site not specified Status: Acute Assessment and Plan: * UA: Cloudy, 1+ protein, 1+ ketones, 3+ blood, 3+ leuk esterase, 21-50 RBC, greater than 100 WBC, WBC clumps present, no epithelial * concern for prostatitis per CT * UCx pending * no previous micro urine available for review * leukocytosis increasing. Afebrile. Otherwise nonseptic. * Started on IV Ciprofloxacin - switched to oral on 05/13 (4) Prostatitis: Qualifiers: Prostatitis type: acute Qualified Code(s): N41.0 - Acute prostatitis Code(s): N41.9 - Inflammatory disease of prostate, unspecified Status: Acute Assessment and Plan: * CT showed indicators of prostatitis * started on ceftriaxone on 05/09 * urology consulted * Stat cystoscopy with clot evacuation and complex Viera catheter insertion * During operation, significant blood clot in obvious injury to the membranous urethra, [address] placed. * Started on Ciprofloxacin IV switched to Oral on 05/13 * Per urology: * Urine clear on slow CBI. Will slow CBI and get catheter out as soon as we comfortable urine will remain clear. * 05/14: Failed voiding trial - replaced catheter without difficulty * Voiding trial repeat in 3-4 days (5) Anemia: Qualifiers: Anemia type: unspecified type Qualified Code(s): D64.9 - Anemia, unspecified Code(s): D64.9 - Anemia, unspecified Status: Acute Assessment and Plan: * Hgb 12.3 upon admission on 05/09. 15.7 at discharge on 04/29. * Check iron, TIBC, ferritin, B12, folic acid, and stool guaiac. * TSH 3.23 on 04/28 * Transfuse if <7 * Trend H&H * Of note, recently started on Eliquis and Plavix secondary to acute stroke earlier this month * 05/14: Hgb 8.4 (6) History of CVA (cerebrovascular accident): Code(s): Z86.73 - Personal history of transient ischemic attack (TIA), and cerebral infarction without residual deficits Status: Chronic Assessment and Plan: * Brain MRI, 04/23 with small acute infarct at the genu of the right corpus callosum, several old lacunar infarcts, multiple small foci of susceptibility artifact scattered throughout the brain including the cerebral hemispheres, midbrain and cerebellum consistent with chronic microhemorrhage typically seen in the setting of hypertension but can also be seen with amyloid angiopathy. * worsening AMS likely secondary to UTI, however could be sequela of recent CVA. started on abx, monitor response. * discussed with Dr. Miguel falk to stop ASA, Plavix as patient was found to have Afib on last admission. Continue Eliquis. (7) Seizure disorder: Code(s): G40.909 - Epilepsy, unspecified, not intractable, without status epilepticus Status: Chronic Assessment and Plan: * continue lacosamide (switched from Keppra due to agitation on last admit) (8) Atrial fibrillation: Qualifiers: Atrial fibrillation type: unspecified chronic Qualified Code(s): I48.20 - Chronic atrial fibrillation, unspecified Code(s): I48.91 - Unspecified atrial fibrillation Status: Chronic Assessment and Plan: * continue home medications: Metoprolol, Eliquis (9) Hyperglycemia: Code(s): R73.9 - Hyperglycemia, unspecified Status: Chronic Assessment and Plan: * glucose 184 upon admission * A1C 5.9% on 04/25/25 (10) Hypertension: Qualifiers: Hypertension type: essential hypertension Qualified Code(s): I10 - Essential (primary) hypertension Code(s): I10 - Essential (primary) hypertension Status: Chronic Assessment and Plan: * chronic, currently 123/50 * continue home medications: Lisinopril, metoprolol * monitor Plan DVT Prophylaxis: Anam Disposition: TBD Code Status: Full code Subjective Date/time seen: 05/14/25 06:57 Interval history: 69 y/o M with PMH of recent CVA, atrial fibrillation, and HTN presents here with AMS. 05/14/2025 Patient resting comfortably in bed at time of examination. No acute overnight events. Pending placement per CC. Urology attempted voiding trial yesterday - failed, and catheter replaced. Voiding trial again in 3-4 days. Review of Systems Review of Systems: All systems reviewed & are unremarkable except as noted in HPI and below Exam Narrative: General: NAD, disheveled Eyes: EOMI ENT: neck supple Cardiovascular: Regular rate and rhythm Respiratory: Clear to auscultation, respirations even and unlabored on RA Gastrointestinal: Soft, non tender Genitourinary: no suprapubic tenderness, catheter patent and draining - clear Musculoskeletal: No edema Skin: warm, dry Neuro: Alert. Psych: Mood appropriate Const: General: comfortable and no acute distress Other: , male, elderly, nontoxic appearance HENMT: Face/Nose/Sinus: Normal nares present Mouth: Yes moist mucous membranes Eyes: General: appearance normal, both eyes and all related structures Sclera: sclerae normal Pupils: Equal, round and reactive pupils present EOM: EOMs intact bilaterally Resp: Effort & Inspection: normal respiratory effort Auscultation: clear to auscultation bilaterally Cardio: Rate: regular rate Rhythm: regular rhythm Other: S1-S2 present without murmur, rub, ectopy GI: Other: Abdomen soft, nondistended, nontender. Normoactive bowel sounds in all quadrants. Skin: General skin exam: normal color and no rashes or lesions noted Wounds: no wounds Neuro: Cranial nerves: Yes Equal, round and reactive pupils present Speech: normal speech Motor exam (neuro): 5/5 motor strength present throughout Sensory Exam: normal sensation Other: A/Ox3, no tremors or involuntary movements appreciated. Extrem: General: normal to inspection Psych: Mental Status: mental status grossly normal Affect: normal affect Other: Fair insight and judgment, pleasant, no agitation noted. Objective Data Vital Signs Vital Signs: Vital Signs - 24 hr 05/13/25 08:00 05/13/25 08:00 05/13/25 08:14 Temperature 98.1 F Pulse Rate 124 H 107 H Respiratory Rate Blood Pressure 156/85 H Pulse Oximetry 99 Oxygen Delivery Room Air 05/13/25 11:48 05/13/25 12:00 05/13/25 16:39 Temperature 98.5 F 97.6 F Pulse Rate 88 101 H 125 H Respiratory Rate 20 Blood Pressure 136/82 149/131 H Pulse Oximetry 98 Oxygen Delivery 05/13/25 18:37 05/13/25 20:00 05/13/25 20:00 Temperature 98.8 F Pulse Rate 80 115 H Respiratory Rate 16 Blood Pressure 138/76 Pulse Oximetry 100 Oxygen Delivery Room Air 05/13/25 22:01 05/14/25 06:54 Temperature 98.4 F 97.7 F Pulse Rate 100 91 Respiratory Rate 16 16 Blood Pressure 144/72 H 135/83 Pulse Oximetry 98 100 Oxygen Delivery Intake/Output Intake/Output: Intake & Output 05/11/25 05/12/25 05/13/25 05/14/25 23:59 23:59 23:59 23:59 Intake Total 800 46707.4 7350 1000 Output Total 4175 1875 5050 Balance -3375 26314.4 2300 1000 Meds/Results Medications: Active Medications Generic Name Dose Route Start Last Admin Trade Name Freq PRN Reason Stop Dose Admin Acetaminophen 650 mg 05/09/25 13:23 Acetaminophen 325 Mg Tablet PO Q6H PRN Pain Rated 1-3 Atorvastatin Calcium 40 mg 05/10/25 09:00 05/13/25 08:55 Atorvastatin 40 Mg Tablet PO 40 mg DAILY [facility] Administration Bupropion HCl 150 mg 05/10/25 09:00 05/13/25 08:55 Bupropion Hcl Xl (24 Hr) 150 Mg Tabcr PO 150 mg DAILY [facility] Administration Ciprofloxacin 500 mg 05/13/25 21:00 05/13/25 21:38 Ciprofloxacin 500 Mg Tab PO 500 mg Q12HR [facility] Administration Donepezil HCl 10 mg 05/10/25 09:00 05/13/25 08:55 Donepezil Hcl 10 Mg Tablet PO 10 mg DAILY [facility] Administration Fentanyl Citrate 25 mcg 05/11/25 12:01 Fentanyl Citrate Inj (*Crx) 100 Mcg/2 Ml Vial IV PUSH Q2M PRN Pain Hydralazine HCl 10 mg 05/13/25 05:42 05/13/25 05:59 Hydralazine Hcl 20 Mg/Ml Vial IV PUSH 10 mg Q4H PRN Administration SYSTOLIC BP >160 Sodium Chloride 1,000 mls @ 125 mls/hr 05/11/25 15:55 05/14/25 06:39 Normal Saline Iv IV CONT 125 mls/hr .Q8H [facility] Administration Lacosamide 200 mg 05/09/25 22:35 05/13/25 21:38 Lacosamide (*Crx) 200 Mg Tablet PO 200 mg Q12HR [facility] Administration Lisinopril 40 mg 05/10/25 09:00 05/13/25 08:55 Lisinopril 20 Mg Tablet PO 40 mg QAM [facility] Administration Metoprolol Succinate 50 mg 05/10/25 09:00 05/13/25 08:55 Metoprolol Succinate Ext Rel 50 Mg Tabcr PO 50 mg DAILY [facility] Administration Ondansetron HCl 4 mg 05/09/25 13:24 Ondansetron Hcl Odt 4 Mg Tablet PO Q4H PRN Nausea And Vomiting Ondansetron HCl 4 mg 05/11/25 12:01 Ondansetron Inj 4 Mg/2 Ml Vial IV PUSH ONCE PRN Nausea Tamsulosin HCl 0.4 mg 05/14/25 09:00 Tamsulosin Hcl 0.4 Mg Capsule PO QAM [facility] Radiology Results: ITS Impressions Head CT 05/09/25 12:10 IMPRESSION: 1. Few old lacunar infarcts in the right basal ganglia and in the coronal radiata of the bilateral frontal and right parietal lobes. No acute intracranial process. 2. Age-related changes including mild to moderate diffuse volume loss and extensive scattered white matter hypoattenuation consistent with chronic small vessel ischemic disease. Chest/Abdomen/Pelvis CT 05/09/25 12:34 IMPRESSION: 1. Prostatomegaly with surrounding from trace stranding also extending around the bilateral seminal vesicles which raises concern for prostatitis. 2. No acute cardiopulmonary disease or other acute intra-abdominal/pelvic process. Labs Labs: Laboratory Results - last 24 hr 05/14/25 04:18 WBC 9.0 RBC 2.69 L Hgb 8.4 L Hct 24.5 L MCV 91.1 MCH 31.2 MCHC 34.3 RDW 14.2 Plt Count 341 MPV 8.9 Immature Gran % (Auto) 2.2 H Neut % (Auto) 69.0 Lymph % (Auto) 15.0 L [place] % (Auto) 10.8 H Eos % (Auto) 2.4 Baso % (Auto) 0.6 Lymph # (Auto) 1.35 [place] # (Auto) 1.0 H Eos # (Auto) 0.2 Baso # (Auto) 0.1 Abs Immat Gran (auto) 0.20 H Absolute Neuts (auto) 6.2 Absolute Nucleated RBC 0.020 H Band Neutrophils % Not Reportable Nucleated RBC % 0.2 Smudge Cells Present Platelet Estimate Adequate Polychromasia Occasional Hypochromasia 1+ Anisocytosis 1+ Ovalocytes 1+ Schistocytes None seen Sodium 135 L Potassium 3.1 L Chloride 102 Carbon Dioxide 28 Anion Gap 5 BUN 9 D Creatinine 0.77 Estim Creat Clear Calc 72 Estimated GFR > 60 Glucose 114 H Calcium 8.1 L Total Bilirubin 0.6 AST 36 ALT 26 Alkaline Phosphatase 75 Total Protein 5.6 L Albumin 3.1 L Quality VTE Prophylaxis VTE prophylaxis: pharmacologic ordered
--- NOTE | 2025-05-14 09:12 | P.PNUR_ITS ---
Progress Note: A&P Assessment and Plan (1) Prostatitis: Qualifiers: Prostatitis type: acute Qualified Code(s): N41.0 - Acute prostatitis Code(s): N41.9 - Inflammatory disease of prostate, unspecified Status: Acute Assessment and Plan: * Patient failed voiding trial yesterday, catheter replaced without difficulty * Will probably plan to leave the catheter for 3 or 4 more days to allow prostate swelling to subside. I he is ready for discharge prior to that he go home with the indwelling catheter for a couple days Subjective Subjective Date/Time Seen: 05/14/25 09:12 Interval history: Failed voiding trial yesterday Review of Systems Review of Systems: All systems reviewed & are unremarkable except as noted in HPI and below Exam Const: General: no acute distress Resp: Effort & Inspection: normal respiratory effort GI: Inspection: non-distended GI Palp: No abdominal tenderness and No Guarding due to palpation present (GI) Auscultation: normal bowel sounds Urinary Catheter: Urinary Catheter: patent and draining and urine pink Objective Data Vital Signs Vital Signs: Vital Signs - 24 hr 05/13/25 11:48 05/13/25 12:00 05/13/25 16:39 Temperature 98.5 F 97.6 F Pulse Rate 88 101 H 125 H Respiratory Rate 20 Blood Pressure 136/82 149/131 H Pulse Oximetry 98 Oxygen Delivery 05/13/25 18:37 05/13/25 20:00 05/13/25 20:00 Temperature 98.8 F Pulse Rate 80 115 H Respiratory Rate 16 Blood Pressure 138/76 Pulse Oximetry 100 Oxygen Delivery Room Air 05/13/25 22:01 05/14/25 06:54 Temperature 98.4 F 97.7 F Pulse Rate 100 91 Respiratory Rate 16 16 Blood Pressure 144/72 H 135/83 Pulse Oximetry 98 100 Oxygen Delivery Intake/Output Intake/Output: Intake & Output 05/11/25 05/12/25 05/13/25 05/14/25 23:59 23:59 23:59 23:59 Intake Total 800 13762.4 7350 1250 Output Total 4175 1875 5050 1700 Balance -3375 79443.4 2300 -450 Meds/Results Medications: Active Medications Generic Name Dose Route Start Last Admin Trade Name Freq PRN Reason Stop Dose Admin Acetaminophen 650 mg 05/09/25 13:23 Acetaminophen 325 Mg Tablet PO Q6H PRN Pain Rated 1-3 Atorvastatin Calcium 40 mg 05/10/25 09:00 05/13/25 08:55 Atorvastatin 40 Mg Tablet PO 40 mg DAILY [facility] Administration Bupropion HCl 150 mg 05/10/25 09:00 05/13/25 08:55 Bupropion Hcl Xl (24 Hr) 150 Mg Tabcr PO 150 mg DAILY [facility] Administration Ciprofloxacin 500 mg 05/13/25 21:00 05/13/25 21:38 Ciprofloxacin 500 Mg Tab PO 500 mg Q12HR [facility] Administration Donepezil HCl 10 mg 05/10/25 09:00 05/13/25 08:55 Donepezil Hcl 10 Mg Tablet PO 10 mg DAILY [facility] Administration Fentanyl Citrate 25 mcg 05/11/25 12:01 Fentanyl Citrate Inj (*Crx) 100 Mcg/2 Ml Vial IV PUSH Q2M PRN Pain Hydralazine HCl 10 mg 05/13/25 05:42 05/13/25 05:59 Hydralazine Hcl 20 Mg/Ml Vial IV PUSH 10 mg Q4H PRN Administration SYSTOLIC BP >160 Sodium Chloride 1,000 mls @ 125 mls/hr 05/11/25 15:55 05/14/25 06:39 Normal Saline Iv IV CONT 125 mls/hr .Q8H [facility] Administration Lacosamide 200 mg 05/09/25 22:35 05/13/25 21:38 Lacosamide (*Crx) 200 Mg Tablet PO 200 mg Q12HR [facility] Administration Lisinopril 40 mg 05/10/25 09:00 05/13/25 08:55 Lisinopril 20 Mg Tablet PO 40 mg QAM [facility] Administration Metoprolol Succinate 50 mg 05/10/25 09:00 05/13/25 08:55 Metoprolol Succinate Ext Rel 50 Mg Tabcr PO 50 mg DAILY [facility] Administration Ondansetron HCl 4 mg 05/09/25 13:24 Ondansetron Hcl Odt 4 Mg Tablet PO Q4H PRN Nausea And Vomiting Ondansetron HCl 4 mg 05/11/25 12:01 Ondansetron Inj 4 Mg/2 Ml Vial IV PUSH ONCE PRN Nausea Tamsulosin HCl 0.4 mg 05/14/25 09:00 Tamsulosin Hcl 0.4 Mg Capsule PO QAM [facility] Radiology Results: ITS Impressions Head CT 05/09/25 12:10 IMPRESSION: 1. Few old lacunar infarcts in the right basal ganglia and in the coronal radiata of the bilateral frontal and right parietal lobes. No acute intracranial process. 2. Age-related changes including mild to moderate diffuse volume loss and ext ensive scattered white matter hypoattenuation consistent with chronic small vessel ischemic disease. Chest/Abdomen/Pelvis CT 05/09/25 12:34 IMPRESSION: 1. Prostatomegaly with surrounding from trace stranding also extending around the bilateral seminal vesicles which raises concern for prostatitis. 2. No acute cardiopulmonary disease or other acute intra-abdominal/pelvic process. Labs Labs: Laboratory Results - last 24 hr 05/14/25 04:18 WBC 9.0 RBC 2.69 L Hgb 8.4 L Hct 24.5 L MCV 91.1 MCH 31.2 MCHC 34.3 RDW 14.2 Plt Count 341 MPV 8.9 Immature Gran % (Auto) 2.2 H Neut % (Auto) 69.0 Lymph % (Auto) 15.0 L [place] % (Auto) 10.8 H Eos % (Auto) 2.4 Baso % (Auto) 0.6 Lymph # (Auto) 1.35 [place] # (Auto) 1.0 H Eos # (Auto) 0.2 Baso # (Auto) 0.1 Abs Immat Gran (auto) 0.20 H Absolute Neuts (auto) 6.2 Absolute Nucleated RBC 0.020 H Band Neutrophils % Not Reportable Nucleated RBC % 0.2 Smudge Cells Present Platelet Estimate Adequate Polychromasia Occasional Hypochromasia 1+ Anisocytosis 1+ Ovalocytes 1+ Schistocytes None seen Sodium 135 L Potassium 3.1 L Chloride 102 Carbon Dioxide 28 Anion Gap 5 BUN 9 D Creatinine 0.77 Estim Creat Clear Calc 72 Estimated GFR > 60 Glucose 114 H Calcium 8.1 L Total Bilirubin 0.6 AST 36 ALT 26 Alkaline Phosphatase 75 Total Protein 5.6 L Albumin 3.1 L
[2025-05-14] MEDS: DONEPEZIL HCL 10 MG TABLET PO (10:30)
[2025-05-14] MEDS: LACOSAMIDE (*CRX) 200 MG TABLET PO ×2 (10:30→21:17)
[2025-05-14] MEDS: POTASSIUM CHLORIDE 20 MEQ ER TABLET 40 MEQ PO (10:30)
[2025-05-14] MEDS: METOPROLOL SUCCINATE EXT REL 50 MG TABCR PO (10:31)
[2025-05-14] MEDS: buPROPion HCL XL (24 HR) 150 MG TABCR PO (10:31)
[2025-05-14] MEDS: TAMSULOSIN HCL 0.4 MG CAPSULE PO (10:31)
[2025-05-14] MEDS: CIPROFLOXACIN 500 MG TAB PO ×2 (10:31→21:17)
[2025-05-14] MEDS: ATORVASTATIN 40 MG TABLET PO (10:31)
[2025-05-15] VITALS (9 sets, daily range): BP systolic 116–145; BP diastolic 64–83; PULSE 78–111; RESP 16–18; TEMP 36.4–37.1; O2SAT 97–100
[2025-05-15] MEDS: LIDOCAINE 2% GEL UROJET 10 ML PKG MUCOUS MEM (03:09)
[2025-05-15 04:46] LABS: Hematocrit 24.7 % (42.0-52.0); Hemoglobin 8.2 g/dL (14.0-18.0); Immature Granulocyte Percent A 1.9 % (0-0.5); Lymphocytes Absolute Auto 1.41 K/mm3 (0.9-3.2); Mean Corpuscular HGB Conc 33.2 g/dl (32-36); Mean Corpuscular Hemoglobin 30.6 pg (26-34); Mean Corpuscular Volume 92.2 fl (80-100); Nucleated Red Blood Cells Absolute Auto 0.000 K/mm3 (0.0-0.012); Nucleated Red Blood Cells Perc 0.0 % (0.0-0.2); Platelet Count Result 380 k/mm3 (150-375); Red Blood Count 2.68 M/mm3 (4.6-6.20); White Blood Count 10.1 K/mm3 (4.5-10.0)
[2025-05-15 05:09] LABS: Alanine Aminotransferase 22 U/L (6-50); Albumin Level 3.0 g/dL (3.5-5.1); Alkaline Phosphatase 84 U/L (38-126); Anion Gap 4 mmol/L (4-12); Aspartate Amino Transferase 29 U/L (17-59); Bilirubin,Total 0.6 mg/dL (0.2-1.3); Blood Urea Nitrogen 9 mg/dL (9-20); Calcium 8.0 mg/dL (8.4-10.2); Carbon Dioxide 26 mmol/L (22-30); Chloride 102 mmol/L (98-107); Estimated CRCL calculation 73 ml/min; Estimated Glomerular Filt Rate > 60; Glucose 121 mg/dL (65-110); Potassium 3.4 mmol/L (3.4-5.0); Sodium 132 mmol/L (137-145); Total Protein 5.5 g/dL (6.3-8.2)
[2025-05-15] MEDS: METOPROLOL SUCCINATE EXT REL 50 MG TABCR PO (08:01)
[2025-05-15] MEDS: DONEPEZIL HCL 10 MG TABLET PO (08:01)
[2025-05-15] MEDS: LACOSAMIDE (*CRX) 200 MG TABLET PO ×2 (08:02→20:11)
[2025-05-15] MEDS: TAMSULOSIN HCL 0.4 MG CAPSULE PO (08:02)
[2025-05-15] MEDS: CIPROFLOXACIN 500 MG TAB PO ×2 (08:02→20:11)
[2025-05-15] MEDS: buPROPion HCL XL (24 HR) 150 MG TABCR PO (08:02)
[2025-05-15] MEDS: ATORVASTATIN 40 MG TABLET PO (08:02)
--- NOTE | 2025-05-15 09:44 | P.PNUR_ITS ---
Progress Note: A&P Assessment and Plan (1) Prostatitis: Qualifiers: Prostatitis type: acute Qualified Code(s): N41.0 - Acute prostatitis Code(s): N41.9 - Inflammatory disease of prostate, unspecified Status: Acute (2) Urinary retention: Code(s): R33.9 - Retention of urine, unspecified Status: Acute Assessment and Plan: * Ongoing urinary retention due to underlying BPH complicated by swelling of prostate due to prostatitis. * Plan discharge with catheter, on Flomax and antibiotics x2 weeks. Urine culture with prostatitis can be negative, if so would treat with Septra DS bid. * Plan another voiding trial 5-7 days. Subjective Subjective Date/Time Seen: 05/15/25 09:44 Interval history: Patient pulled Viera again yesterday and failed subsequent voiding trial. Seems to be tolerating Viera catheter well now. Review of Systems Cardiovascular: Cardiovascular: Denies chest pain, Denies lightheadedness, Denies palpitations and Denies dyspnea Respiratory: Respiratory: Denies dyspnea Gastrointestinal: Gastrointestinal: Denies diarrhea, Denies nausea and Denies vomiting Genitourinary: Genitourinary: Denies hematuria and Denies dysuria Endocrine: Endocrine: Denies palpitations Exam Const: General: no acute distress Resp: Effort & Inspection: normal respiratory effort GI: Inspection: non-distended GI Palp: No abdominal tenderness and No Guarding due to palpation present (GI) Auscultation: normal bowel sounds Urinary Catheter: Urinary Catheter: patent and draining and urine clear Objective Data Vital Signs Vital Signs: Vital Signs - 24 hr 05/14/25 10:30 05/14/25 10:31 05/14/25 12:00 Temperature Pulse Rate 91 108 H Respiratory Rate Blood Pressure Pulse Oximetry Oxygen Delivery Room Air 05/14/25 15:50 05/14/25 16:00 05/14/25 20:00 Temperature 97.7 F Pulse Rate 89 121 H Respiratory Rate 17 Blood Pressure 138/72 Pulse Oximetry 100 Oxygen Delivery Room Air 05/14/25 21:41 05/14/25 21:48 05/15/25 00:00 Temperature 98.6 F Pulse Rate 102 H 109 H 91 Respiratory Rate 20 Blood Pressure 142/84 H Pulse Oximetry 100 Oxygen Delivery 05/15/25 04:00 05/15/25 04:38 05/15/25 08:00 Temperature 98.3 F Pulse Rate 98 98 Respiratory Rate 16 Blood Pressure 145/83 H Pulse Oximetry 100 Oxygen Delivery Room Air 05/15/25 08:00 05/15/25 08:01 Temperature Pulse Rate 106 H 109 H Respiratory Rate Blood Pressure Pulse Oximetry Oxygen Delivery Intake/Output Intake/Output: Intake & Output 05/12/25 05/13/25 05/14/25 05/15/25 23:59 23:59 23:59 23:59 Intake Total 74262.4 7350 2340 440 Output Total 1875 5050 2380 800 Balance 14888.4 2300 -40 -802 Meds/Results Medications: Active Medications Generic Name Dose Route Start Last Admin Trade Name Freq PRN Reason Stop Dose Admin Acetaminophen 650 mg 05/09/25 13:23 Acetaminophen 325 Mg Tablet PO Q6H PRN Pain Rated 1-3 Atorvastatin Calcium 40 mg 05/10/25 09:00 05/15/25 08:02 Atorvastatin 40 Mg Tablet PO 40 mg DAILY [facility] Administration Bupropion HCl 150 mg 05/10/25 09:00 05/15/25 08:02 Bupropion Hcl Xl (24 Hr) 150 Mg Tabcr PO 150 mg DAILY [facility] Administration Ciprofloxacin 500 mg 05/13/25 21:00 05/15/25 08:02 Ciprofloxacin 500 Mg Tab PO 500 mg Q12HR [facility] Administration Donepezil HCl 10 mg 05/10/25 09:00 05/15/25 08:01 Donepezil Hcl 10 Mg Tablet PO 10 mg DAILY [facility] Administration Fentanyl Citrate 25 mcg 05/11/25 12:01 Fentanyl Citrate Inj (*Crx) 100 Mcg/2 Ml Vial IV PUSH Q2M PRN Pain Hydralazine HCl 10 mg 05/13/25 05:42 05/13/25 05:59 Hydralazine Hcl 20 Mg/Ml Vial IV PUSH 10 mg Q4H PRN Administration SYSTOLIC BP >160 Lacosamide 200 mg 05/09/25 22:35 05/15/25 08:02 Lacosamide (*Crx) 200 Mg Tablet PO 200 mg Q12HR [facility] Administration Lisinopril 40 mg 05/10/25 09:00 05/15/25 08:01 Lisinopril 20 Mg Tablet PO 40 mg QAM [facility] Administration Metoprolol Succinate 50 mg 05/10/25 09:00 05/15/25 08:01 Metoprolol Succinate Ext Rel 50 Mg Tabcr PO 50 mg DAILY [facility] Administration Ondansetron HCl 4 mg 05/09/25 13:24 Ondansetron Hcl Odt 4 Mg Tablet PO Q4H PRN Nausea And Vomiting Ondansetron HCl 4 mg 05/11/25 12:01 Ondansetron Inj 4 Mg/2 Ml Vial IV PUSH ONCE PRN Nausea Tamsulosin HCl 0.4 mg 05/14/25 09:00 05/15/25 08:02 Tamsulosin Hcl 0.4 Mg Capsule PO 0.4 mg QAM [facility] Administration Radiology Results: ITS Impressions Head CT 05/09/25 12:10 IMPRESSION: 1. Few old lacunar infarcts in the right basal ganglia and in the coronal radiata of the bilateral frontal and right parietal lobes. No acute intracranial process. 2. Age-related changes including mild to moderate diffuse volume loss and extensive scattered white matter hypoattenuation consistent with chronic small vessel ischemic disease. Chest/Abdomen/Pelvis CT 05/09/25 12:34 IMPRESSION: 1. Prostatomegaly with surrounding from trace stranding also extending around the bilateral seminal vesicles which raises concern for prostatitis. 2. No acute cardiopulmonary disease or other acute intra-abdominal/pelvic process. Labs Labs: Laboratory Results - last 24 hr 05/15/25 04:23 WBC 10.1 H RBC 2.68 L Hgb 8.2 L Hct 24.7 L MCV 92.2 MCH 30.6 MCHC 33.2 RDW 14.1 Plt Count 380 H MPV 8.8 Immature Gran % (Auto) 1.9 H Neut % (Auto) 71.6 Lymph % (Auto) 14.0 L [place] % (Auto) 9.7 H Eos % (Auto) 2.4 Baso % (Auto) 0.4 Lymph # (Auto) 1.41 [place] # (Auto) 1.0 H Eos # (Auto) 0.2 Baso # (Auto) 0.0 Abs Immat Gran (auto) 0.19 H Absolute Neuts (auto) 7.2 H Absolute Nucleated RBC 0.000 Nucleated RBC % 0.0 Sodium 132 L Potassium 3.4 Chloride 102 Carbon Dioxide 26 Anion Gap 4 BUN 9 Creatinine 0.76 Estim Creat Clear Calc 73 Estimated GFR > 60 Glucose 121 H Calcium 8.0 L Total Bilirubin 0.6 AST 29 ALT 22 Alkaline Phosphatase 84 Total Protein 5.5 L Albumin 3.0 L
--- NOTE | 2025-05-15 12:41 | P.PNIM_ITS ---
Progress Note: A&P Assessment and Plan (1) Sepsis: Code(s): A41.9 - Sepsis, unspecified organism Status: Acute Assessment and Plan: * sepsis present on admission as evidenced by tachycardia, tachypnea, leukocyto sis * BP stable, LA WNL * source: UTI with possible prostatitis * received 1L bolus in ED followed by LR 125cc/hr overnight * management of UTI as below * Blood culture shows NGTD * Urine culture still pending * Leukocytosis remains elevated - could be 2/2 to procedure, monitor on am labs * WBC down from 27.9 -> 13.5 -> 9.0 * Continue to monitor labs, cultures - NGTD (2) AMS (altered mental status): Qualifiers: Altered mental status type: delirium Qualified Code(s): R41.0 - Disorientation, unspecified Code(s): R41.82 - Altered mental status, unspecified Status: Acute Assessment and Plan: * Head CT, 05/09 with no acute process, old lacunar infarcts in the R basal ganglia and coronal radiata of the bilateral frontal and right parietal lobes. Age-related changes. * recent dx of CVA on 04/23. MRI showed a small acute infarct at the genu of the right corpus callosum and several old lacunar infarcts at the right basal ganglia and right frontal and parietal lobe dobbins radiata. * developed agitation during last admission, thought to be secondary to CVA vs. side effect of Keppra so was transitioned to Lacosamide * UDS + for cannabis 04/22 * UA consistent with UTI, imaging suggest prostatitis * suspect worsening mental status secondary to acute UTI/prostatitis. Management as below. * If no improvement with treatment, consider neurology re-evaluation. * Mentation appropriate this morning, however he ripped out his IV and catheter again last night (3) UTI (urinary tract infection): Qualifiers: Hematuria presence: without hematuria Urinary tract infection type: acute cystitis Qualified Code(s): N30.00 - Acute cystitis without hematuria Code(s): N39.0 - Urinary tract infection, site not specified Status: Acute Assessment and Plan: * UA: Cloudy, 1+ protein, 1+ ketones, 3+ blood, 3+ leuk esterase, 21-50 RBC, greater than 100 WBC, WBC clumps present, no epithelial * concern for prostatitis per CT * UCx pending * no previous micro urine available for review * leukocytosis increasing. Afebrile. Otherwise nonseptic. * Started on IV Ciprofloxacin - switched to oral on 05/13 (4) Prostatitis: Qualifiers: Prostatitis type: acute Qualified Code(s): N41.0 - Acute prostatitis Code(s): N41.9 - Inflammatory disease of prostate, unspecified Status: Acute Assessment and Plan: * CT showed indicators of prostatitis * started on ceftriaxone on 05/09 * urology consulted * Stat cystoscopy with clot evacuation and complex Viera catheter insertion * During operation, significant blood clot in obvious injury to the membranous urethra, [address]. * Started on Ciprofloxacin IV switched to Oral on 05/13 * 05/15: Ripped out catheter * Viera replaced - now tolerating * Per urology - remain on flomax with abx x2 weeks (5) Anemia: Qualifiers: Anemia type: unspecified type Qualified Code(s): D64.9 - Anemia, unspecified Code(s): D64.9 - Anemia, unspecified Status: Acute Assessment and Plan: * Hgb 12.3 upon admission on 05/09. 15.7 at discharge on 04/29. * Check iron, TIBC, ferritin, B12, folic acid, and stool guaiac. * TSH 3.23 on 04/28 * Transfuse if <7 * Trend H&H * Of note, recently started on Eliquis and Plavix secondary to acute stroke earlier this month * 05/15: Hgb 8.2 (6) History of CVA (cerebrovascular accident): Code(s): Z86.73 - Personal history of transient ischemic attack (TIA), and cerebral infarction without residual deficits Status: Chronic Assessment and Plan: * Brain MRI, 04/23 with small acute infarct at the genu of the right corpus callosum, several old lacunar infarcts, multiple small foci of susceptibility artifact scattered throughout the brain including the cerebral hemispheres, midbrain and cerebellum consistent with chronic microhemorrhage typically seen in the setting of hypertension but can also be seen with amyloid angiopathy. * worsening AMS likely secondary to UTI, however could be sequela of recent CVA. started on abx, monitor response. * discussed with Dr. Miguel falk to stop ASA, Plavix as patient was found to have Afib on last admission. Continue Eliquis. (7) Seizure disorder: Code(s): G40.909 - Epilepsy, unspecified, not intractable, without status epilepticus Status: Chronic Assessment and Plan: * continue lacosamide (switched from Keppra due to agitation on last admit) (8) Atrial fibrillation: Qualifiers: Atrial fibrillation type: unspecified chronic Qualified Code(s): I48.20 - Chronic atrial fibrillation, unspecified Code(s): I48.91 - Unspecified atrial fibrillation Status: Chronic Assessment and Plan: * continue home medications: Metoprolol, Eliquis (9) Hyperglycemia: Code(s): R73.9 - Hyperglycemia, unspecified Status: Chronic Assessment and Plan: * glucose 184 upon admission * A1C 5.9% on 04/25/25 (10) Hypertension: Qualifiers: Hypertension type: essential hypertension Qualified Code(s): I10 - Essential (primary) hypertension Code(s): I10 - Essential (primary) hypertension Status: Chronic Assessment and Plan: * chronic, currently 123/50 * continue home medications: Lisinopril, metoprolol * monitor Plan DVT Prophylaxis: Anam Disposition: TBD Code Status: Full code Subjective Date/time seen: 05/15/25 12:41 Interval history: 69 y/o M with PMH of recent CVA, atrial fibrillation, and HTN presents here with AMS. 05/15/2025 Patient resting comfortably in bed at time of examination. Patient doing well this morning, denies any pain or concerns. Patient reported pulled out his catheter last night - Failed subsequent voiding trial. Viera replaced and pt is now tolerating - sitter in room. Urology agree with discharge with catheter in place, to be removed and trialed with voiding in 5-7 days - continue flomax and abx x2 weeks. Working with CC regarding placement now - accepted at [facility], pending placement Review of Systems Review of Systems: All systems reviewed & are unremarkable except as noted in HPI and below Exam Narrative: General: NAD, disheveled Eyes: EOMI ENT: neck supple Cardiovascular: Regular rate and rhythm Respiratory: Clear to auscultation, respirations even and unlabored on RA Gastrointestinal: Soft, non tender Genitourinary: no suprapubic tenderness, catheter patent and draining - clear Musculoskeletal: No edema Skin: warm, dry Neuro: Alert. Psych: Mood appropriate Const: General: comfortable and no acute distress Other: , male, elderly, nontoxic appearance HENMT: Face/Nose/Sinus: Normal nares present Mouth: Yes moist mucous membranes Eyes: General: appearance normal, both eyes and all related structures Sclera: sclerae normal Pupils: Equal, round and reactive pupils present EOM: EOMs intact bilaterally Resp: Effort & Inspection: normal respiratory effort Auscultation: clear to auscultation bilaterally Cardio: Rate: regular rate Rhythm: regular rhythm Other: S1-S2 present without murmur, rub, ectopy GI: Other: Abdomen soft, nondistended, nontender. Normoactive bowel sounds in all quadrants. Skin: General skin exam: normal color and no rashes or lesions noted Wounds: no wounds Neuro: Cranial nerves: Yes Equal, round and reactive pupils present Speech: normal speech Motor exam (neuro): 5/5 motor strength present throughout Sensory Exam: normal sensation Other: A/Ox3, no tremors or involuntary movements appreciated. Extrem: General: normal to inspection Psych: Mental Status: mental status grossly normal Affect: normal affect Other: Fair insight and judgment, pleasant, no agitation noted. Objective Data Vital Signs Vital Signs: Vital Signs - 24 hr 05/14/25 15:50 05/14/25 16:00 05/14/25 20:00 Temperature 97.7 F Pulse Rate 89 121 H Respiratory Rate 17 Blood Pressure 138/72 Pulse Oximetry 100 Oxygen Delivery Room Air 05/14/25 21:41 05/14/25 21:48 05/15/25 00:00 Temperature 98.6 F Pulse Rate 102 H 109 H 91 Respiratory Rate 20 Blood Pressure 142/84 H Pulse Oximetry 100 Oxygen Delivery 05/15/25 04:00 05/15/25 04:38 05/15/25 08:00 Temperature 98.3 F Pulse Rate 98 98 Respiratory Rate 16 Blood Pressure 145/83 H Pulse Oximetry 100 Oxygen Delivery Room Air 05/15/25 08:00 05/15/25 08:01 05/15/25 12:00 Temperature Pulse Rate 106 H 109 H 108 H Respiratory Rate Blood Pressure Pulse Oximetry Oxygen Delivery Intake/Output Intake/Output: Intake & Output 05/12/25 05/13/25 05/14/25 05/15/25 23:59 23:59 23:59 23:59 Intake Total 84109.4 7350 2340 440 Output Total 1875 5050 2380 800 Balance 92774.4 2300 -40 -360 Meds/Results Medications: Active Medications Generic Name Dose Route Start Last Admin Trade Name Roberto PRN Reason Stop Dose Admin Acetaminophen 650 mg 05/09/25 13:23 Acetaminophen 325 Mg Tablet PO Q6H PRN Pain Rated 1-3 Atorvastatin Calcium 40 mg 05/10/25 09:00 05/15/25 08:02 Atorvastatin 40 Mg Tablet PO 40 mg DAILY JUSTINA Administration Bupropion HCl 150 mg 05/10/25 09:00 05/15/25 08:02 Bupropion Hcl Xl (24 Hr) 150 Mg Tabcr PO 150 mg DAILY JUSTINA Administration Ciprofloxacin 500 mg 05/13/25 21:00 05/15/25 08:02 Ciprofloxacin 500 Mg Tab PO 500 mg Q12HR JUSTINA Administration Donepezil HCl 10 mg 05/10/25 09:00 05/15/25 08:01 Donepezil Hcl 10 Mg Tablet PO 10 mg DAILY JUSTINA Administration Fentanyl Citrate 25 mcg 05/11/25 12:01 Fentanyl Citrate Inj (*Crx) 100 Mcg/2 Ml Vial IV PUSH Q2M PRN Pain Hydralazine HCl 10 mg 05/13/25 05:42 05/13/25 05:59 Hydralazine Hcl 20 Mg/Ml Vial IV PUSH 10 mg Q4H PRN Administration SYSTOLIC BP >160 Lacosamide 200 mg 05/09/25 22:35 05/15/25 08:02 Lacosamide (*Crx) 200 Mg Tablet PO 200 mg Q12HR JUSTINA Administration Lisinopril 40 mg 05/10/25 09:00 05/15/25 08:01 Lisinopril 20 Mg Tablet PO 40 mg QAM JUSTINA Administration Metoprolol Succinate 50 mg 05/10/25 09:00 05/15/25 08:01 Metoprolol Succinate Ext Rel 50 Mg Tabcr PO 50 mg DAILY JUSTINA Administration Ondansetron HCl 4 mg 05/09/25 13:24 Ondansetron Hcl Odt 4 Mg Tablet PO Q4H PRN Nausea And Vomiting Ondansetron HCl 4 mg 05/11/25 12:01 Ondansetron Inj 4 Mg/2 Ml Vial IV PUSH ONCE PRN Nausea Tamsulosin HCl 0.4 mg 05/14/25 09:00 05/15/25 08:02 Tamsulosin Hcl 0.4 Mg Capsule PO 0.4 mg QAM JUSTINA Administration Radiology Results: ITS Impressions Head CT 05/09/25 12:10 IMPRESSION: 1. Few old lacunar infarcts in the right basal ganglia and in the coronal radiata of the bilateral frontal and right parietal lobes. No acute intracranial process. 2. Age-related changes including mild to moderate diffuse volume loss and extensive scattered white matter hypoattenuation consistent with chronic small vessel ischemic disease. Chest/Abdomen/Pelvis CT 05/09/25 12:34 IMPRESSION: 1. Prostatomegaly with surrounding from trace stranding also extending around the bilateral seminal vesicles which raises concern for prostatitis. 2. No acute cardiopulmonary disease or other acute intra-abdominal/pelvic process. Labs Labs: Laboratory Results - last 24 hr 05/15/25 04:23 WBC 10.1 H RBC 2.68 L Hgb 8.2 L Hct 24.7 L MCV 92.2 MCH 30.6 MCHC 33.2 RDW 14.1 Plt Count 380 H MPV 8.8 Immature Gran % (Auto) 1.9 H Neut % (Auto) 71.6 Lymph % (Auto) 14.0 L [place] % (Auto) 9.7 H Eos % (Auto) 2.4 Baso % (Auto) 0.4 Lymph # (Auto) 1.41 [place] # (Auto) 1.0 H Eos # (Auto) 0.2 Baso # (Auto) 0.0 Abs Immat Gran (auto) 0.19 H Absolute Neuts (auto) 7.2 H Absolute Nucleated RBC 0.000 Nucleated RBC % 0.0 Sodium 132 L Potassium 3.4 Chloride 102 Carbon Dioxide 26 Anion Gap 4 BUN 9 Creatinine 0.76 Estim Creat Clear Calc 73 Estimated GFR > 60 Glucose 121 H Calcium 8.0 L Total Bilirubin 0.6 AST 29 ALT 22 Alkaline Phosphatase 84 Total Protein 5.5 L Albumin 3.0 L Quality VTE Prophylaxis VTE prophylaxis: pharmacologic ordered
[2025-05-16] VITALS: PULSE 89
[2025-05-16] MEDS: OLANZapine 5 MG, WATER, STERILE FOR INJECTION 2.1 ML IM ×2 (03:06→11:09)
[2025-05-16 04:39] LABS: Hematocrit 25.2 % (42.0-52.0); Hemoglobin 8.4 g/dL (14.0-18.0); Immature Granulocyte Percent A 1.5 % (0-0.5); Lymphocytes Absolute Auto 1.41 K/mm3 (0.9-3.2); Mean Corpuscular HGB Conc 33.3 g/dl (32-36); Mean Corpuscular Hemoglobin 31.7 pg (26-34); Mean Corpuscular Volume 95.1 fl (80-100); Nucleated Red Blood Cells Absolute Auto 0.000 K/mm3 (0.0-0.012); Nucleated Red Blood Cells Perc 0.0 % (0.0-0.2); Platelet Count Result 479 k/mm3 (150-375); Red Blood Count 2.65 M/mm3 (4.6-6.20); White Blood Count 12.7 K/mm3 (4.5-10.0)
[2025-05-16] MEDS: diazePAM INJ (*CRX) 10 MG/2 ML SYRINGE 2 MG IV PUSH (04:40)
[2025-05-16 05:02] LABS: Alanine Aminotransferase 20 U/L (6-50); Albumin Level 3.2 g/dL (3.5-5.1); Alkaline Phosphatase 87 U/L (38-126); Anion Gap 9 mmol/L (4-12); Aspartate Amino Transferase 25 U/L (17-59); Bilirubin,Total 0.7 mg/dL (0.2-1.3); Blood Urea Nitrogen 10 mg/dL (9-20); Calcium 8.3 mg/dL (8.4-10.2); Carbon Dioxide 20 mmol/L (22-30); Chloride 104 mmol/L (98-107); Estimated CRCL calculation 69 ml/min; Estimated Glomerular Filt Rate > 60; Glucose 143 mg/dL (65-110); Potassium 3.4 mmol/L (3.4-5.0); Sodium 133 mmol/L (137-145); Total Protein 5.9 g/dL (6.3-8.2)
--- NOTE | 2025-05-16 06:30 | PM.EVENT ---
Event Note Event Note Event Note: 05/16/2025 at 02:50 Nursing staff called me because the patient was agitated and becoming violent. A patient was fighting with staff, kicking and threatening to knock providers out. A he was agitated and adamant that someone needed to go get his mail. When we tried to distract the patient with a printed be the paper and an envelope he became more agitated. Multiple attempts were made to redirect the patient and calmed the patient without providing sedation or restraints. I was at the bedside for the majority of this and all attempts were unsuccessful. Subsequently Zyprexa 5 mg IM was ordered. The patient was also placed in soft restraints as he was trying to pull his Viera catheter out despite having pajama pants on he was also attempting to rip out his IV and head repetitively pulled this telemetry unit off. He was trying to work himself down to the into the bed in order to kick staff members. I ordered a 2 mg dose of IV diazepam as well but the patient did calm after we left the room in reduced the stimuli. But about 2 hours later the patient again was exhibiting the same behavior is a and the diazepam was given at that time. Patient was initially in soft wrist restraints but when he became agitated the 2nd time he had to be placed in 4 point soft restraints for brief time. 30 minute spent in critical care activities. This case had a high probability of a clinically significant, sudden, or life threatening deterioration of this patient's condition which required my full and direct attention, intervention and personal management.
--- NOTE | 2025-05-16 11:00 | PC.NURSE ---
pt has worked his way down in bed and is attempting to unclip quick release on restraint, he is pulling at the rope and trying to undo the restraint, unable to redirect, he states he needs to get free so he can go to the doctor, right ankle restraint removed in an attempt to pacify pt, unable to redirect behavior, zyprexa IM dose administered after multiple attempts to calm pt
--- NOTE | 2025-05-16 13:06 | P.PNIM_ITS ---
Progress Note: A&P Assessment and Plan (1) Sepsis: Code(s): A41.9 - Sepsis, unspecified organism Status: Acute Assessment and Plan: * sepsis present on admission as evidenced by tachycardia, tachypnea, leukocyto sis * BP stable, LA WNL * source: UTI with possible prostatitis * received 1L bolus in ED followed by LR 125cc/hr overnight * management of UTI as below * Blood culture shows NGTD * Urine culture still pending * Leukocytosis remains elevated - could be 2/2 to procedure, monitor on am labs * WBC down from 27.9 -> 13.5 -> 9.0 -> 12.1 * Continue to monitor labs, cultures - final results negative * Resolving (2) AMS (altered mental status): Qualifiers: Altered mental status type: delirium Qualified Code(s): R41.0 - Disorientation, unspecified Code(s): R41.82 - Altered mental status, unspecified Status: Acute Assessment and Plan: * Head CT, 05/09 with no acute process, old lacunar infarcts in the R basal ganglia and coronal radiata of the bilateral frontal and right parietal lobes. Age-related changes. * recent dx of CVA on 04/23. MRI showed a small acute infarct at the genu of the right corpus callosum and several old lacunar infarcts at the right basal ganglia and right frontal and parietal lobe dobbins radiata. * developed agitation during last admission, thought to be secondary to CVA vs. side effect of Keppra so was transitioned to Lacosamide * UDS + for cannabis 04/22 * UA consistent with UTI, imaging suggest prostatitis * suspect worsening mental status secondary to acute UTI/prostatitis. Management as below. * If no improvement with treatment, consider neurology re-evaluation. * Mentation appropriate this morning, however he ripped out his IV and catheter again last night * Reconsult neurology as pt continues to be aggressive at night * 5mg ODT zyprexa with 2.5mg BID prn (3) UTI (urinary tract infection): Qualifiers: Hematuria presence: without hematuria Urinary tract infection type: acute cystitis Qualified Code(s): N30.00 - Acute cystitis without hematuria Code(s): N39.0 - Urinary tract infection, site not specified Status: Acute Assessment and Plan: * UA: Cloudy, 1+ protein, 1+ ketones, 3+ blood, 3+ leuk esterase, 21-50 RBC, greater than 100 WBC, WBC clumps present, no epithelial * concern for prostatitis per CT * UCx pending * no previous micro urine available for review * leukocytosis increasing. Afebrile. Otherwise nonseptic. * Started on IV Ciprofloxacin - switched to oral on 05/13 (4) Prostatitis: Qualifiers: Prostatitis type: acute Qualified Code(s): N41.0 - Acute prostatitis Code(s): N41.9 - Inflammatory disease of prostate, unspecified Status: Acute Assessment and Plan: * CT showed indicators of prostatitis * started on ceftriaxone on 05/09 * urology consulted * Stat cystoscopy with clot evacuation and complex Viera catheter insertion * During operation, significant blood clot in obvious injury to the membranous urethra, [address] placed. * Started on Ciprofloxacin IV switched to Oral on 05/13 (5) Anemia: Qualifiers: Anemia type: unspecified type Qualified Code(s): D64.9 - Anemia, unspecified Code(s): D64.9 - Anemia, unspecified Status: Acute Assessment and Plan: * Hgb 12.3 upon admission on 05/09. 15.7 at discharge on 04/29. * Check iron, TIBC, ferritin, B12, folic acid, and stool guaiac. * TSH 3.23 on 04/28 * Transfuse if <7 * Trend H&H * Of note, recently started on Eliquis and Plavix secondary to acute stroke earlier this month * 05/16: Hgb 8.4 (6) History of CVA (cerebrovascular accident): Code(s): Z86.73 - Personal history of transient ischemic attack (TIA), and cerebral infarction without residual deficits Status: Chronic Assessment and Plan: * Brain MRI, 04/23 with small acute infarct at the genu of the right corpus callosum, several old lacunar infarcts, multiple small foci of susceptibility artifact scattered throughout the brain including the cerebral hemispheres, midbrain and cerebellum consistent with chronic microhemorrhage typically seen in the setting of hypertension but can also be seen with amyloid angiopathy. * worsening AMS likely secondary to UTI, however could be sequela of recent CVA. started on abx, monitor response. * discussed with Dr. Miguel falk to stop ASA, Plavix as patient was found to have Afib on last admission. Continue Eliquis. * Reconsult neurology (7) Seizure disorder: Code(s): G40.909 - Epilepsy, unspecified, not intractable, without status epilepticus Status: Chronic Assessment and Plan: * continue lacosamide (switched from Keppra due to agitation on last admit) (8) Atrial fibrillation: Qualifiers: Atrial fibrillation type: unspecified chronic Qualified Code(s): I48.20 - Chronic atrial fibrillation, unspecified Code(s): I48.91 - Unspecified atrial fibrillation Status: Chronic Assessment and Plan: * continue home medications: Metoprolol, Eliquis (9) Hyperglycemia: Code(s): R73.9 - Hyperglycemia, unspecified Status: Chronic Assessment and Plan: * glucose 184 upon admission * A1C 5.9% on 04/25/25 (10) Hypertension: Qualifiers: Hypertension type: essential hypertension Qualified Code(s): I10 - Essential (primary) hypertension Code(s): I10 - Essential (primary) hypertension Status: Chronic Assessment and Plan: * chronic, currently 123/50 * continue home medications: Lisinopril, metoprolol * monitor Plan DVT Prophylaxis: Anam Disposition: TBD Code Status: Full code Subjective Date/time seen: 05/16/25 13:06 Interval history: 69 y/o M with PMH of recent CVA, atrial fibrillation, and HTN presents here with AMS. 05/16/2025 Patient resting comfortably in bed at time of examination. Overnight provider was alerted as patient was becoming agitated/violent. Patient was fighting the staff and was subsequently given Zyprexa 5 mg IM and was placed back in soft restraints. 2 mg dose of IV diazepam was also given. Patient was started on 5 mg dose of Zyprexa daily with 2.5 mg b.i.d. p.r.n. of Zyprexa, as per her previous Psychiatry note on last admission. Neurology will be reconsulted regarding worsening aggressive behavior. Blood/urine cultures negative for growth. Review of Systems Review of Systems: All systems reviewed & are unremarkable except as noted in HPI and below Exam Narrative: General: NAD, disheveled Eyes: EOMI ENT: neck supple Cardiovascular: Regular rate and rhythm Respiratory: Clear to auscultation, respirations even and unlabored on RA Gastrointestinal: Soft, non tender Genitourinary: no suprapubic tenderness, catheter patent and draining - clear Musculoskeletal: No edema Skin: warm, dry Neuro: Alert. Psych: Mood appropriate Const: General: comfortable and no acute distress Other: , male, elderly, nontoxic appearance HENMT: Face/Nose/Sinus: Normal nares present Mouth: Yes moist mucous membranes Eyes: General: appearance normal, both eyes and all related structures Sclera: sclerae normal Pupils: Equal, round and reactive pupils present EOM: EOMs intact bilaterally Resp: Effort & Inspection: normal respiratory effort Auscultation: clear to auscultation bilaterally Cardio: Rate: regular rate Rhythm: regular rhythm Other: S1-S2 present without murmur, rub, ectopy GI: Other: Abdomen soft, nondistended, nontender. Normoactive bowel sounds in all quadrants. Skin: General skin exam: normal color and no rashes or lesions noted Wounds: no wounds Neuro: Cranial nerves: Yes Equal, round and reactive pupils present Speech: normal speech Motor exam (neuro): 5/5 motor strength present throughout Sensory Exam: normal sensation Other: A/Ox3, no tremors or involuntary movements appreciated. Extrem: General: normal to inspection Psych: Mental Status: mental status grossly normal Affect: normal affect Other: Fair insight and judgment, pleasant, no agitation noted. Objective Data Vital Signs Vital Signs: Vital Signs - 24 hr 05/15/25 14:50 05/15/25 16:00 05/15/25 19:58 Temperature 97.6 F Pulse Rate 90 78 Respiratory Rate 17 Blood Pressure 116/64 Pulse Oximetry 97 Oxygen Delivery Room Air 05/15/25 20:00 05/15/25 20:00 05/16/25 00:00 Temperature 98.7 F Pulse Rate 111 H 106 H 89 Respiratory Rate 18 Blood Pressure 127/78 Pulse Oximetry 100 Oxygen Delivery 05/16/25 07:40 Temperature Pulse Rate Respiratory Rate Blood Pressure Pulse Oximetry Oxygen Delivery Room Air Intake/Output Intake/Output: Intake & Output 05/13/25 05/14/25 05/15/25 05/16/25 23:59 23:59 23:59 23:59 Intake Total 7350 2340 770 Output Total 5050 2380 1250 450 Balance 2300 -40 -480 -450 Meds/Results Medications: Active Medications Generic Name Dose Route Start Last Admin Trade Name Freq PRN Reason Stop Dose Admin Acetaminophen 650 mg 05/09/25 13:23 Acetaminophen 325 Mg Tablet PO Q6H PRN Pain Rated 1-3 Atorvastatin Calcium 40 mg 05/10/25 09:00 05/15/25 08:02 Atorvastatin 40 Mg Tablet PO 40 mg DAILY JUSTINA Administration Bupropion HCl 150 mg 05/10/25 09:00 05/15/25 08:02 Bupropion Hcl Xl (24 Hr) 150 Mg Tabcr PO 150 mg DAILY JUSTINA Administration Ciprofloxacin 500 mg 05/13/25 21:00 05/15/25 20:11 Ciprofloxacin 500 Mg Tab PO 500 mg Q12HR JUSTINA Administration Donepezil HCl 10 mg 05/10/25 09:00 05/15/25 08:01 Donepezil Hcl 10 Mg Tablet PO 10 mg DAILY JUSTINA Administration Fentanyl Citrate 25 mcg 05/11/25 12:01 Fentanyl Citrate Inj (*Crx) 100 Mcg/2 Ml Vial IV PUSH Q2M PRN Pain Hydralazine HCl 10 mg 05/13/25 05:42 05/13/25 05:59 Hydralazine Hcl 20 Mg/Ml Vial IV PUSH 10 mg Q4H PRN Administration SYSTOLIC BP >160 Lacosamide 200 mg 05/09/25 22:35 05/15/25 20:11 Lacosamide (*Crx) 200 Mg Tablet PO 200 mg Q12HR JUSTINA Administration Lisinopril 40 mg 05/10/25 09:00 05/15/25 08:01 Lisinopril 20 Mg Tablet PO 40 mg QAM JUSTINA Administration Metoprolol Succinate 50 mg 05/10/25 09:00 05/15/25 08:01 Metoprolol Succinate Ext Rel 50 Mg Tabcr PO 50 mg DAILY JUSTINA Administration Olanzapine 5 mg 05/16/25 09:00 Olanzapine Odt Dispertab 5 Mg PO DAILY JUSTINA Olanzapine 2.5 mg 05/16/25 08:58 Olanzapine 2.5 Mg Tablet PO BID PRN Agitation Ondansetron HCl 4 mg 05/09/25 13:24 Ondansetron Hcl Odt 4 Mg Tablet PO Q4H PRN Nausea And Vomiting Ondansetron HCl 4 mg 05/11/25 12:01 Ondansetron Inj 4 Mg/2 Ml Vial IV PUSH ONCE PRN Nausea Tamsulosin HCl 0.4 mg 05/14/25 09:00 05/15/25 08:02 Tamsulosin Hcl 0.4 Mg Capsule PO 0.4 mg QAM JUSTINA Administration Radiology Results: ITS Impressions Head CT 05/09/25 12:10 IMPRESSION: 1. Few old lacunar infarcts in the right basal ganglia and in the coronal radiata of the bilateral frontal and right parietal lobes. No acute intracranial process. 2. Age-related changes including mild to moderate diffuse volume loss and extensive scattered white matter hypoattenuation consistent with chronic small vessel ischemic disease. Chest/Abdomen/Pelvis CT 05/09/25 12:34 IMPRESSION: 1. Prostatomegaly with surrounding from trace stranding also extending around the bilateral seminal vesicles which raises concern for prostatitis. 2. No acute cardiopulmonary disease or other acute intra-abdominal/pelvic process. Labs Labs: Laboratory Results - last 24 hr 05/16/25 04:27 WBC 12.7 H RBC 2.65 L Hgb 8.4 L Hct 25.2 L MCV 95.1 MCH 31.7 MCHC 33.3 RDW 14.6 H Plt Count 479 H MPV 8.9 Immature Gran % (Auto) 1.5 H Neut % (Auto) 76.7 H Lymph % (Auto) 11.1 L Robertson % (Auto) 9.2 H Eos % (Auto) 1.0 Baso % (Auto) 0.5 Lymph # (Auto) 1.41 Robertson # (Auto) 1.2 H Eos # (Auto) 0.1 Baso # (Auto) 0.1 Abs Immat Gran (auto) 0.19 H Absolute Neuts (auto) 9.8 H Absolute Nucleated RBC 0.000 Nucleated RBC % 0.0 Sodium 133 L Potassium 3.4 Chloride 104 Carbon Dioxide 20 L Anion Gap 9 BUN 10 Creatinine 0.81 Estim Creat Clear Calc 69 Estimated GFR > 60 Glucose 143 H Calcium 8.3 L Total Bilirubin 0.7 AST 25 ALT 20 Alkaline Phosphatase 87 Total Protein 5.9 L Albumin 3.2 L Quality VTE Prophylaxis VTE prophylaxis: pharmacologic ordered
[2025-05-16 14:00] VITALS: BP 149/76; PULSE 104; RESP 16; TEMP 36.4; O2SAT 100
--- NOTE | 2025-05-16 15:03 | PC.NURSE ---
pt now speaking more sensibly and agreeable to leaving cath alone, bed linens able to be changed, repositioned in bed, still refusing to eat or drink, trial restraint release, sitter remains at bedside for observation of behavior
[2025-05-16 16:34] VITALS: PULSE 92
[2025-05-16] MEDS: METOPROLOL SUCCINATE EXT REL 50 MG TABCR PO (16:34)
[2025-05-16] MEDS: LACOSAMIDE (*CRX) 200 MG TABLET PO (16:34)
[2025-05-16] MEDS: ATORVASTATIN 40 MG TABLET PO (16:34)
[2025-05-16] MEDS: CIPROFLOXACIN 500 MG TAB PO (16:34)
[2025-05-16] MEDS: TAMSULOSIN HCL 0.4 MG CAPSULE PO (16:35)
[2025-05-16] MEDS: DONEPEZIL HCL 10 MG TABLET PO (16:35)
[2025-05-16] MEDS: buPROPion HCL XL (24 HR) 150 MG TABCR PO (16:35)
--- NOTE | 2025-05-16 16:48 | WPDNEURCNPN ---
Assessment and Plan Assessment and plan (1) AMS (altered mental status): Code(s): R41.82 - Altered mental status, unspecified Status: Acute Assessment and Plan: Although the patient has had problems similar to this in the past but this time he appeared more confused and combative and even fighting. This morning it required 4 point restraints strain due to aggressive behavior. His hemoglobin is now down to 8.4 and white cell count on admission was 21.3. His suspected prostatitis and urinary tract infection and is being seen by urologist and being treated. He was on Eliquis and anti-platelet some which have all been held. (2) Multi-infarct dementia: Code(s): F01.50 - Vascular dementia, unspecified severity, without behavioral disturbance, psychotic disturbance, mood disturbance, and anxiety Status: Acute Assessment and Plan: The patient has been started on Aricept 10 mg a day. (3) Seizure disorder: Code(s): G40.909 - Epilepsy, unspecified, not intractable, without status epilepticus Status: Chronic Assessment and Plan: In view of the spells of agitation he was converted from Keppra to Vimpat. He is currently on 200 mg twice a day and I would suggest to continue with it. (4) Marijuana use: Code(s): F12.90 - Cannabis use, unspecified, uncomplicated Status: Acute (5) Agitation: Code(s): R45.1 - Restlessness and agitation Status: Acute Assessment and Plan: Patient has been evaluated by Psychiatry and a it appears Zyprexa has been effective as per their recommendations. (6) Atrial fibrillation: Qualifiers: Atrial fibrillation type: unspecified chronic Qualified Code(s): I48.20 - Chronic atrial fibrillation, unspecified Code(s): I48.91 - Unspecified atrial fibrillation Status: Chronic Assessment and Plan: currently anticoagulation is on hold on account of significant drop in the hemoglobin from 15-8.4. Antiplatelets are also hold. (7) Acute UTI: Code(s): N39.0 - Urinary tract infection, site not specified Status: Acute (8) Prostatitis: Qualifiers: Prostatitis type: acute Qualified Code(s): N41.0 - Acute prostatitis Code(s): N41.9 - Inflammatory disease of prostate, unspecified Status: Acute Plan As discussed about suggest to continue the lacosamide 200 mg twice a day and work with the psychiatrist recommendations with regard to controlling his delirium appears agitation. He is off anticoagulation and Eliquis on account of drop in hemoglobin and you may wish to investigate this further he may have GI bleed. His white cell count was high when he arrived on admission was 21.3 and now is coming down. He is being treated for Prostatitis. Before we offer him to coagulation or anti-platelet therapy he has a drop in the hemoglobin should be addressed. Consult date: 05/16/25 HPI: Giancarlo Clark Jr. is a 69 year old male with history of recent stroke involving corpus callosum and possible seizure disorder was seen for a neurologic evaluation. Patient presented to the hospital altered mental status and nausea and vomiting. He had a fever with temperature 101?. He has been diagnosed to have prostatitis and UTI. He is being treated by the urologist. He also history of atrial fibrillation and he has been on Eliquis. That he was also on aspirin and Plavix however all these on hold because his hemoglobin has dropped from 15-8.4. He was noted to be rather aggressive on the last admission when I saw him on 04/28/2025 and was switched from Keppra to lacosamide. He is also on Aricept 10 mg a day. On this admission his white cell count was noted to be high at 21.3 and hemoglobin low at 8.4. CT scan of brain shows old stroke however no new or acute findings were noted. Hemoglobin A1c was 5.9. He is very agitated at times and required restrain last night or early this morning and finally around 9:00 a.m. he was given Zyprexa which has previously been recommended by the psychiatrist and that seemed to have been helpful in calming him or cook control him. Previously was aggressive towards the nursing staff also. Lives with a girlfriend. An EEG performed on the previous admission shows mild diffuse background slowing. The psychiatrist felt the patient might have CVA induced delirium and olanzapine is safer and more effective choice over lorazepam. Lorazepam may worsen delirium and carries higher respiratory and sedation risk specially neurologically compromised patients. His input is appreciated. There is also suspicion that he probably was not taking Zyprexa as prescribed at home since the discharge. It is also questionable whether he was taking any seizure medications. It was interesting to note that when he initially presented to the emergency room on 04/22/2025 he was driving for 10 hours and did not know where he was going. Investigations during this time due to the noted that he has a stroke to the right of the corpus callosum. A CT angiogram head and neck was performed on 04/25/2025 which did not show any significant large vessel occlusion. A soft plaque was identified within the right carotid bulb just beyond its origin. MRI of the brain performed on 04/23/2025 had shown as acute infarct in the genu of the right corpus callosum however the evidence for chronic microhemorrhages such as may be seen with amyloid angiopathy. Several small lacunar infarct were noted in the right basal ganglia and right frontal and parietal lobe. I once again reviewed these findings and agree with the same. Review of Systems Review of Systems: ROS unobtainable: Yes unobtainable due to mental status PMFSH Past Medical History Medical History Atrial fibrillation Seizure disorder Hyperlipidemia Acute cerebrovascular accident Encounter for screening for cardiovascular disorders Hyperglycemia Hypertension Surgical History Surgical History History of bilateral knee replacement History of orthopedic surgery Right upper extremity reconstruction Family History Family History Mother Family history of diabetes mellitus in first degree relative Sibling Carcinoma of colon Uterine cancer Social History Social History Smoking packs per day: 0.5 Smoking cigarettes per day: 10.0 Years smoked: 15 Smoking pack-years: 7.50 Smoking status: Former smoker Second hand tobacco smoke exposure: Yes Alcohol intake: former Substance use: current Substance use type: marijuana Other substance usage details: 3x weekly Last use: today Do You Feel Safe in your Home?: Yes Lack of Transportation: No Lack of Food: Never True Current Housing: I Have Housing Concerned About Future Housing: No Difficulty Paying Gas/Electric Bills: No Difficulty Paying for Meds: No Currently Unemployed: No Education: High School Diploma/GED Difficulty w/ Childcare or Family Care: No Living arrangements: with family Spiritual care concerns: No Meds Home Medications and Allergies Home Medications ?Medication ?Instructions ?Recorded ?Confirmed ?Type metoprolol succinate 50 mg 50 mg PO DAILY #90 tabs 11/22/24 05/09/25 Rx tablet,extended release 24 hr acetaminophen 500 mg tablet 1,000 mg (2 x 500 mg) PO Q6H PRN 12/28/24 05/09/25 Rx (Tylenol Extra Strength) pain #50 tabs aspirin 81 mg tablet,delayed 81 mg PO QAM 30 days #30 tabs 04/25/25 05/09/25 Rx release atorvastatin 40 mg tablet 40 mg PO DAILY 30 days #30 tabs 04/25/25 05/09/25 Rx clopidogrel 75 mg tablet 75 mg PO QAM 30 days #30 tabs 04/25/25 05/09/25 Rx apixaban 5 mg tablet (Eliquis) 5 mg PO Q12HR #60 tabs 04/29/25 05/09/25 Rx lisinopril 20 mg tablet 40 mg (2 x 20 mg) PO QAM #30 tabs 04/29/25 05/09/25 Rx bupropion HCl 150 mg 24 hr tablet, 150 mg PO DAILY #90 tabs 05/03/25 05/09/25 Rx extended release (Wellbutrin XL) donepezil 10 mg tablet (Aricept) 10 mg PO DAILY #90 tabs 05/03/25 05/09/25 Rx lacosamide 100 mg tablet 200 mg PO Q12H 05/09/25 05/09/25 History Allergies Allergy/AdvReac Type Severity Reaction Status Date / Time Penicillins Allergy Unknown Anaphylaxis Verified 05/12/25 08:11 Vital Signs Vital Signs - 24 hr 05/15/25 19:58 05/15/25 20:00 05/15/25 20:00 Temperature 98.7 F Pulse Rate 111 H 106 H Respiratory Rate 18 Blood Pressure 127/78 Pulse Oximetry 100 Oxygen Delivery Room Air 05/16/25 00:00 05/16/25 07:40 05/16/25 14:00 Temperature 97.6 F Pulse Rate 89 104 H Respiratory Rate 16 Blood Pressure 149/76 H Pulse Oximetry 100 Oxygen Delivery Room Air 05/16/25 16:34 Temperature Pulse Rate 92 Respiratory Rate Blood Pressure Pulse Oximetry Oxygen Delivery Exam Narrative: Patient fully conscious alert however he seems to be relatively com but verbalizing sentences and words which did not appear to make much sense however he remains fairly cooperative. Examination head and neck was unremarkable. No evidence of external trauma. No carotid bruit. Heart sounds were normal. Cranial nerves injured testing intact. There is no facial asymmetry. Tongue was midline. Other cranials were normal limits. Motor system normal power and tone in both upper and lower limbs. No involuntary movements were noted. Coordination finger-nose appears normal. Deep tendon reflexes did not show any significant asymmetry. Results Labs 05/16/25 04:27 05/16/25 04:27 Labs: Short CBC 05/16/25 Range/Units 04:27 WBC 12.7 H (4.5-10.0) K/mm3 Hgb 8.4 L (14.0-18.0) g/dL Hct 25.2 L (42.0-52.0) % Plt Count 479 H (150-375) k/mm3 BMP 05/16/25 04:27 Sodium 133 L Potassium 3.4 Chloride 104 Carbon Dioxide 20 L BUN 10 Creatinine 0.81 Glucose 143 H Calcium 8.3 L Liver Function 05/16/25 Range/Units 04:27 Total Bilirubin 0.7 (0.2-1.3) mg/dL AST 25 (17-59) U/L ALT 20 (6-50) U/L Alkaline Phosphatase 87 (38-126) U/L Albumin 3.2 L (3.5-5.1) g/dL
--- NOTE | 2025-05-16 19:57 | PC.NURSE ---
Called pharmacist for clarification of next appropriate medication administration. This nurse noted ciprofloxacin and lacosamide are scheduled to be given at 2100, but dayshift nurse had passed in report all medications today were administered @1634 due to overall behavior and being sedated. Asked pharmacist, Harshil, if medications should be just given later than scheduled time or retimed. Per pharmacist, they said to non-admin the 2100 doses and resume at next scheduled dose on 05/17/25 @0900.
[2025-05-16 21:21] VITALS: BP 154/87; PULSE 118; RESP 16; TEMP 36.8; O2SAT 100
[2025-05-17 04:48] LABS: Hematocrit 26.0 % (42.0-52.0); Hemoglobin 8.6 g/dL (14.0-18.0); Immature Granulocyte Percent A 1.5 % (0-0.5); Lymphocytes Absolute Auto 1.46 K/mm3 (0.9-3.2); Mean Corpuscular HGB Conc 33.1 g/dl (32-36); Mean Corpuscular Hemoglobin 31.0 pg (26-34); Mean Corpuscular Volume 93.9 fl (80-100); Nucleated Red Blood Cells Absolute Auto 0.000 K/mm3 (0.0-0.012); Nucleated Red Blood Cells Perc 0.0 % (0.0-0.2); Platelet Count Result 518 k/mm3 (150-375); Red Blood Count 2.77 M/mm3 (4.6-6.20); White Blood Count 10.6 K/mm3 (4.5-10.0)
[2025-05-17 04:49] VITALS: BP 118/76; PULSE 98; RESP 16; TEMP 36.8; O2SAT 95
[2025-05-17 05:11] LABS: Alanine Aminotransferase 18 U/L (6-50); Albumin Level 3.2 g/dL (3.5-5.1); Alkaline Phosphatase 84 U/L (38-126); Anion Gap 8 mmol/L (4-12); Aspartate Amino Transferase 26 U/L (17-59); Bilirubin,Total 0.7 mg/dL (0.2-1.3); Blood Urea Nitrogen 8 mg/dL (9-20); Calcium 8.6 mg/dL (8.4-10.2); Carbon Dioxide 26 mmol/L (22-30); Chloride 103 mmol/L (98-107); Estimated CRCL calculation 68 ml/min; Estimated Glomerular Filt Rate > 60; Glucose 118 mg/dL (65-110); Potassium 3.3 mmol/L (3.4-5.0); Sodium 137 mmol/L (137-145); Total Protein 5.9 g/dL (6.3-8.2)
--- NOTE | 2025-05-17 07:51 | P.PNUR_ITS ---
Progress Note: A&P Assessment and Plan (1) Gross hematuria: Code(s): R31.0 - Gross hematuria Status: Acute (2) Prostatitis: Qualifiers: Prostatitis type: acute Qualified Code(s): N41.0 - Acute prostatitis Code(s): N41.9 - Inflammatory disease of prostate, unspecified Status: Acute Assessment and Plan: * Neurology input noted * Continue catheter for several more days - voiding trial later this week Subjective Subjective Date/Time Seen: 05/17/25 07:51 Interval history: Resting, urine clear Review of Systems Review of Systems: ROS unobtainable: Yes unobtainable due to mental status Exam Const: General: no acute distress Resp: Effort & Inspection: normal respiratory effort GI: Inspection: non-distended GI Palp: No abdominal tenderness and No Guarding due to palpation present (GI) Auscultation: normal bowel sounds Urinary Catheter: Urinary Catheter: patent and draining and urine clear Objective Data Vital Signs Vital Signs: Vital Signs - 24 hr 05/16/25 14:00 05/16/25 16:34 05/16/25 21:15 Temperature 97.6 F Pulse Rate 104 H 92 Respiratory Rate 16 Blood Pressure 149/76 H Pulse Oximetry 100 Oxygen Delivery Room Air 05/16/25 21:21 05/17/25 04:49 Temperature 98.3 F 98.3 F Pulse Rate 118 H 98 Respiratory Rate 16 16 Blood Pressure 154/87 H 118/76 Pulse Oximetry 100 95 Oxygen Delivery Intake/Output Intake/Output: Intake & Output 05/14/25 05/15/25 05/16/25 05/17/25 23:59 23:59 23:59 23:59 Intake Total 2340 770 240 250 Output Total 2380 1250 1350 475 Balance -40 -480 -1110 -225 Meds/Results Medications: Active Medications Generic Name Dose Route Start Last Admin Trade Name Freq PRN Reason Stop Dose Admin Acetaminophen 650 mg 05/09/25 13:23 Acetaminophen 325 Mg Tablet PO Q6H PRN Pain Rated 1-3 Atorvastatin Calcium 40 mg 05/10/25 09:00 05/16/25 16:34 Atorvastatin 40 Mg Tablet PO 40 mg DAILY JUSTINA Administration Bupropion HCl 150 mg 05/10/25 09:00 05/16/25 16:35 Bupropion Hcl Xl (24 Hr) 150 Mg Tabcr PO 150 mg DAILY JUSTINA Administration Ciprofloxacin 500 mg 05/13/25 21:00 05/16/25 21:19 Ciprofloxacin 500 Mg Tab PO Not Given Q12HR ON LICENSE OF [facility] Donepezil HCl 10 mg 05/10/25 09:00 05/16/25 16:35 Donepezil Hcl 10 Mg Tablet PO 10 mg DAILY JUSTINA Administration Fentanyl Citrate 25 mcg 05/11/25 12:01 Fentanyl Citrate Inj (*Crx) 100 Mcg/2 Ml Vial IV PUSH Q2M PRN Pain Hydralazine HCl 10 mg 05/13/25 05:42 05/13/25 05:59 Hydralazine Hcl 20 Mg/Ml Vial IV PUSH 10 mg Q4H PRN Administration SYSTOLIC BP >160 Lacosamide 200 mg 05/09/25 22:35 05/16/25 21:19 Lacosamide (*Crx) 200 Mg Tablet PO Not Given Q12HR ON LICENSE OF [facility] Lisinopril 40 mg 05/10/25 09:00 05/16/25 16:34 Lisinopril 20 Mg Tablet PO 40 mg QAM ON LICENSE OF [facility] Administration Metoprolol Succinate 50 mg 05/10/25 09:00 05/16/25 16:34 Metoprolol Succinate Ext Rel 50 Mg Tabcr PO 50 mg DAILY ON LICENSE OF [facility] Administration Olanzapine 5 mg 05/16/25 09:00 05/16/25 16:35 Olanzapine Odt Dispertab 5 Mg PO Not Given DAILY ON LICENSE OF [facility] Olanzapine 2.5 mg 05/16/25 08:58 05/16/25 23:13 Olanzapine 2.5 Mg Tablet PO 2.5 mg BID PRN Administration Agitation Ondansetron HCl 4 mg 05/09/25 13:24 Ondansetron Hcl Odt 4 Mg Tablet PO Q4H PRN Nausea And Vomiting Ondansetron HCl 4 mg 05/11/25 12:01 Ondansetron Inj 4 Mg/2 Ml Vial IV PUSH ONCE PRN Nausea Tamsulosin HCl 0.4 mg 05/14/25 09:00 05/16/25 16:35 Tamsulosin Hcl 0.4 Mg Capsule PO 0.4 mg QAM JUSTINA Administration Radiology Results: ITS Impressions Head CT 05/09/25 12:10 IMPRESSION: 1. Few old lacunar infarcts in the right basal ganglia and in the coronal radiata of the bilateral frontal and right parietal lobes. No acute intracranial process. 2. Age-related changes including mild to moderate diffuse volume loss and extensive scattered white matter hypoattenuation consistent with chronic small vessel ischemic disease. Chest/Abdomen/Pelvis CT 05/09/25 12:34 IMPRESSION: 1. Prostatomegaly with surrounding from trace stranding also extending around the bilateral seminal vesicles which raises concern for prostatitis. 2. No acute cardiopulmonary disease or other acute intra-abdominal/pelvic process. Labs Labs: Laboratory Results - last 24 hr 05/17/25 04:39 WBC 10.6 H RBC 2.77 L Hgb 8.6 L Hct 26.0 L MCV 93.9 MCH 31.0 MCHC 33.1 RDW 15.0 H Plt Count 518 H MPV 8.5 Immature Gran % (Auto) 1.5 H Neut % (Auto) 74.2 H Lymph % (Auto) 13.8 L [place] % (Auto) 7.3 Eos % (Auto) 2.7 Baso % (Auto) 0.5 Lymph # (Auto) 1.46 [place] # (Auto) 0.8 H Eos # (Auto) 0.3 Baso # (Auto) 0.1 Abs Immat Gran (auto) 0.16 H Absolute Neuts (auto) 7.8 H Absolute Nucleated RBC 0.000 Nucleated RBC % 0.0 Sodium 137 Potassium 3.3 L Chloride 103 Carbon Dioxide 26 Anion Gap 8 BUN 8 L Creatinine 0.82 Estim Creat Clear Calc 68 Estimated GFR > 60 Glucose 118 H Calcium 8.6 Total Bilirubin 0.7 AST 26 ALT 18 Alkaline Phosphatase 84 Total Protein 5.9 L Albumin 3.2 L
[2025-05-17 09:50] VITALS: BP 143/83; PULSE 101; RESP 16; TEMP 36.6; O2SAT 95
[2025-05-17] MEDS: LACOSAMIDE (*CRX) 200 MG TABLET PO ×2 (09:52→20:37)
[2025-05-17] MEDS: buPROPion HCL XL (24 HR) 150 MG TABCR PO (09:52)
[2025-05-17 09:53] VITALS: PULSE 101; RESP 16; O2SAT 95
[2025-05-17] MEDS: TAMSULOSIN HCL 0.4 MG CAPSULE PO (09:53)
[2025-05-17] MEDS: METOPROLOL SUCCINATE EXT REL 50 MG TABCR PO (09:53)
[2025-05-17] MEDS: OLANZapine ODT DISPERTAB 5 MG PO (09:53)
[2025-05-17] MEDS: DONEPEZIL HCL 10 MG TABLET PO (09:53)
[2025-05-17] MEDS: ATORVASTATIN 40 MG TABLET PO (09:53)
[2025-05-17] MEDS: CIPROFLOXACIN 500 MG TAB PO ×2 (09:53→20:37)
--- NOTE | 2025-05-17 10:44 | PCNWS ---
Weekly nutritional screen. Patient is tolerating current diet with adequate intake. No weight loss reported. No nutritional needs at this time.
--- NOTE | 2025-05-17 11:07 | P.PNIM_ITS ---
Progress Note: A&P Assessment and Plan (1) Sepsis: Code(s): A41.9 - Sepsis, unspecified organism Status: Ruled-out Assessment and Plan: * sepsis present on admission as evidenced by tachycardia, tachypnea, leuko cytosis * BP stable, LA WNL * source: UTI with possible prostatitis * received 1L bolus in ED followed by LR 125cc/hr overnight * management of UTI as below * Urine culture still pending * Leukocytosis remains elevated - could be 2/2 to procedure, monitor on am labs * WBC down from 27.9 -> 13.5 -> 9.0 -> 10.6 * Continue to monitor labs, cultures - final results negative * Blood cultures negative for growth - final (2) AMS (altered mental status): Qualifiers: Altered mental status type: delirium Qualified Code(s): R41.0 - Disorientation, unspecified Code(s): R41.82 - Altered mental status, unspecified Status: Acute Assessment and Plan: * Head CT, 05/09 with no acute process, old lacunar infarcts in the R basal ganglia and coronal radiata of the bilateral frontal and right parietal lobes. Age-related changes. * recent dx of CVA on 04/23. MRI showed a small acute infarct at the genu of the right corpus callosum and several old lacunar infarcts at the right basal ganglia and right frontal and parietal lobe dobbins radiata. * developed agitation during last admission, thought to be secondary to CVA vs. side effect of Keppra so was transitioned to Lacosamide * UDS + for cannabis 04/22 * UA consistent with UTI, imaging suggest prostatitis * suspect worsening mental status secondary to acute UTI/prostatitis. Management as below. * Mentation appropriate this morning, however he ripped out his IV and catheter again last night * Reconsult neurology as pt continues to be aggressive at night * Started on Aricept 10mg * 5mg ODT zyprexa with 2.5mg BID prn (3) UTI (urinary tract infection): Qualifiers: Urinary tract infection type: acute cystitis Hematuria presence: without hematuria Qualified Code(s): N30.00 - Acute cystitis without hematuria Code(s): N39.0 - Urinary tract infection, site not specified Status: Acute Assessment and Plan: * UA: Cloudy, 1+ protein, 1+ ketones, 3+ blood, 3+ leuk esterase, 21-50 RBC, greater than 100 WBC, WBC clumps present, no epithelial * concern for prostatitis per CT * UCx pending * no previous micro urine available for review * leukocytosis increasing. Afebrile. Otherwise nonseptic. * Started on IV Ciprofloxacin - switched to oral on 05/13 (4) Prostatitis: Qualifiers: Prostatitis type: acute Qualified Code(s): N41.0 - Acute prostatitis Code(s): N41.9 - Inflammatory disease of prostate, unspecified Status: Acute Assessment and Plan: * CT showed indicators of prostatitis * started on ceftriaxone on 05/09 * Urine culture pending * urology consulted * Stat cystoscopy with clot evacuation and complex Viera catheter insertion * During operation, significant blood clot in obvious injury to the membranous urethra, [address] placed. * Started on Ciprofloxacin IV switched to Oral on 05/13 (5) Anemia: Qualifiers: Anemia type: unspecified type Qualified Code(s): D64.9 - Anemia, unspecified Code(s): D64.9 - Anemia, unspecified Status: Acute Assessment and Plan: * Hgb 12.3 upon admission on 05/09. 15.7 at discharge on 04/29. * Check iron, TIBC, ferritin, B12, folic acid, and stool guaiac. * TSH 3.23 on 04/28 * Transfuse if <7 * Trend H&H * Of note, recently started on Eliquis and Plavix secondary to acute stroke earlier this month * 05/17: Hgb 8.6 (6) History of CVA (cerebrovascular accident): Code(s): Z86.73 - Personal history of transient ischemic attack (TIA), and cerebral infarction without residual deficits Status: Chronic Assessment and Plan: * Brain MRI, 04/23 with small acute infarct at the genu of the right corpus callosum, several old lacunar infarcts, multiple small foci of susceptibility artifact scattered throughout the brain including the cerebral hemispheres, midbrain and cerebellum consistent with chronic microhemorrhage typically seen in the setting of hypertension but can also be seen with amyloid angiopathy. * worsening AMS likely secondary to UTI, however could be sequela of recent CVA. started on abx, monitor response. * discussed with Dr. Miguel falk to stop ASA, Plavix as patient was found to have Afib on last admission. Continue Eliquis. * Reconsult neurology (7) Seizure disorder: Code(s): G40.909 - Epilepsy, unspecified, not intractable, without status epilepticus Status: Chronic Assessment and Plan: * continue lacosamide (switched from Keppra due to agitation on last admit) (8) Atrial fibrillation: Qualifiers: Atrial fibrillation type: unspecified chronic Qualified Code(s): I48.20 - Chronic atrial fibrillation, unspecified Code(s): I48.91 - Unspecified atrial fibrillation Status: Chronic Assessment and Plan: * continue home medications: Metoprolol, Eliquis (9) Hyperglycemia: Code(s): R73.9 - Hyperglycemia, unspecified Status: Chronic Assessment and Plan: * glucose 184 upon admission * A1C 5.9% on 04/25/25 (10) Hypertension: Qualifiers: Hypertension type: essential hypertension Qualified Code(s): I10 - Essential (primary) hypertension Code(s): I10 - Essential (primary) hypertension Status: Chronic Assessment and Plan: * chronic, currently 123/50 * continue home medications: Lisinopril, metoprolol * monitor (11) Thrombocytosis: Code(s): D75.839 - Thrombocytosis, unspecified Status: Acute Assessment and Plan: * Upon admission 317 * 05/15-05/17: 380 -> 479 -> 518 * Could be 2/2 underlying anemia, prostatitis, UTI * No splenomegaly on exam * Monitor on daily lab * Consider heme/onc consult if worsens Plan DVT Prophylaxis: Eliquis Disposition: TBD Code Status: Full code Subjective Date/time seen: 05/17/25 11:07 Interval history: Interval history: 69 y/o M with PMH of recent CVA, atrial fibrillation, and HTN presents here with AMS. 05/17/2025 Patient working with PT at time of exam, walking halls of floor. Appears to be in good spirits and has no complaints at this time. No overnight events - continuing Zyprexa daily and extra doses as needed for agitation. Off soft restraints, will discontinue sitter as [facility] will need 24 hours off sitter. CC working with alternative placement in case [facility] can no longer take patient, but at this time we are planning for discharge tomorrow to [facility]. No other concerns at this time. Review of Systems Review of Systems: All systems reviewed & are unremarkable except as noted in HPI and below Exam Narrative: General: NAD, disheveled Eyes: EOMI ENT: neck supple Cardiovascular: Regular rate and rhythm Respiratory: Clear to auscultation, respirations even and unlabored on RA Gastrointestinal: Soft, non tender Genitourinary: no suprapubic tenderness, catheter patent and draining - clear Musculoskeletal: No edema Skin: warm, dry Neuro: Alert. Psych: Mood appropriate Const: General: comfortable and no acute distress Other: , male, elderly, nontoxic appearance HENMT: Face/Nose/Sinus: Normal nares present Mouth: Yes moist mucous membranes Eyes: General: appearance normal, both eyes and all related structures Sclera: sclerae normal Pupils: Equal, round and reactive pupils present EOM: EOMs intact bilaterally Resp: Effort & Inspection: normal respiratory effort Auscultation: clear to auscultation bilaterally Cardio: Rate: regular rate Rhythm: regular rhythm Other: S1-S2 present without murmur, rub, ectopy GI: Other: Abdomen soft, nondistended, nontender. Normoactive bowel sounds in all quadran ts. Skin: General skin exam: normal color and no rashes or lesions noted Wounds: no wounds Neuro: Cranial nerves: Yes Equal, round and reactive pupils present Speech: normal speech Motor exam (neuro): 5/5 motor strength present throughout Sensory Exam: normal sensation Other: A/Ox3, no tremors or involuntary movements appreciated. Extrem: General: normal to inspection Psych: Mental Status: mental status grossly normal Affect: normal affect Other: Fair insight and judgment, pleasant, no agitation noted. Objective Data Vital Signs Vital Signs: Vital Signs - 24 hr 05/16/25 14:00 05/16/25 16:34 05/16/25 21:15 Temperature 97.6 F Pulse Rate 104 H 92 Respiratory Rate 16 Blood Pressure 149/76 H Pulse Oximetry 100 Oxygen Delivery Room Air Fraction of Inspired Oxygen 05/16/25 21:21 05/17/25 04:49 05/17/25 09:50 Temperature 98.3 F 98.3 F 97.8 F Pulse Rate 118 H 98 101 H Respiratory Rate 16 16 16 Blood Pressure 154/87 H 118/76 143/83 H Pulse Oximetry 100 95 95 Oxygen Delivery Fraction of Inspired Oxygen 05/17/25 09:53 05/17/25 09:53 Temperature Pulse Rate 101 H 101 H Respiratory Rate 16 Blood Pressure Pulse Oximetry 95 Oxygen Delivery Room Air Fraction of Inspired Oxygen 21 Intake/Output Intake/Output: Intake & Output 05/14/25 05/15/25 05/16/25 05/17/25 23:59 23:59 23:59 23:59 Intake Total 2340 770 240 570 Output Total 2380 1250 1350 700 Balance -40 -480 -1110 -130 Meds/Results Medications: Active Medications Generic Name Dose Route Start Last Admin Trade Name Freq PRN Reason Stop Dose Admin Acetaminophen 650 mg 05/09/25 13:23 Acetaminophen 325 Mg Tablet PO Q6H PRN Pain Rated 1-3 Atorvastatin Calcium 40 mg 05/10/25 09:00 05/17/25 09:53 Atorvastatin 40 Mg Tablet PO 40 mg DAILY JUSTINA Administration Bupropion HCl 150 mg 05/10/25 09:00 05/17/25 09:52 Bupropion Hcl Xl (24 Hr) 150 Mg Tabcr PO 150 mg DAILY JUSTINA Administration Ciprofloxacin 500 mg 05/13/25 21:00 05/17/25 09:53 Ciprofloxacin 500 Mg Tab PO 500 mg Q12HR JUSTINA Administration Donepezil HCl 10 mg 05/10/25 09:00 05/17/25 09:53 Donepezil Hcl 10 Mg Tablet PO 10 mg DAILY JUSTINA Administration Fentanyl Citrate 25 mcg 05/11/25 12:01 Fentanyl Citrate Inj (*Crx) 100 Mcg/2 Ml Vial IV PUSH Q2M PRN Pain Hydralazine HCl 10 mg 05/13/25 05:42 05/13/25 05:59 Hydralazine Hcl 20 Mg/Ml Vial IV PUSH 10 mg Q4H PRN Administration SYSTOLIC BP >160 Lacosamide 200 mg 05/09/25 22:35 05/17/25 09:52 Lacosamide (*Crx) 200 Mg Tablet PO 200 mg Q12HR JUSTINA Administration Lisinopril 40 mg 05/10/25 09:00 05/17/25 09:52 Lisinopril 20 Mg Tablet PO 40 mg QAM JUSTINA Administration Metoprolol Succinate 50 mg 05/10/25 09:00 05/17/25 09:53 Metoprolol Succinate Ext Rel 50 Mg Tabcr PO 50 mg DAILY JUSTINA Administration Olanzapine 5 mg 05/16/25 09:00 05/17/25 09:53 Olanzapine Odt Dispertab 5 Mg PO 5 mg DAILY JUSTINA Administration Olanzapine 2.5 mg 05/16/25 08:58 05/16/25 23:13 Olanzapine 2.5 Mg Tablet PO 2.5 mg BID PRN Administration Agitation Ondansetron HCl 4 mg 05/09/25 13:24 Ondansetron Hcl Odt 4 Mg Tablet PO Q4H PRN Nausea And Vomiting Ondansetron HCl 4 mg 05/11/25 12:01 Ondansetron Inj 4 Mg/2 Ml Vial IV PUSH ONCE PRN Nausea Tamsulosin HCl 0.4 mg 05/14/25 09:00 05/17/25 09:53 Tamsulosin Hcl 0.4 Mg Capsule PO 0.4 mg QAM JUSTINA Administration Radiology Results: ITS Impressions Head CT 05/09/25 12:10 IMPRESSION: 1. Few old lacunar infarcts in the right basal ganglia and in the coronal radiata of the bilateral frontal and right parietal lobes. No acute intracranial process. 2. Age-related changes including mild to moderate diffuse volume loss and extensive scattered white matter hypoattenuation consistent with chronic small vessel ischemic disease. Chest/Abdomen/Pelvis CT 05/09/25 12:34 IMPRESSION: 1. Prostatomegaly with surrounding from trace stranding also extending around the bilateral seminal vesicles which raises concern for prostatitis. 2. No acute cardiopulmonary disease or other acute intra-abdominal/pelvic process. Labs Labs: Laboratory Results - last 24 hr 05/17/25 04:39 WBC 10.6 H RBC 2.77 L Hgb 8.6 L Hct 26.0 L MCV 93.9 MCH 31.0 MCHC 33.1 RDW 15.0 H Plt Count 518 H MPV 8.5 Immature Gran % (Auto) 1.5 H Neut % (Auto) 74.2 H Lymph % (Auto) 13.8 L [place] % (Auto) 7.3 Eos % (Auto) 2.7 Baso % (Auto) 0.5 Lymph # (Auto) 1.46 [place] # (Auto) 0.8 H Eos # (Auto) 0.3 Baso # (Auto) 0.1 Abs Immat Gran (auto) 0.16 H Absolute Neuts (auto) 7.8 H Absolute Nucleated RBC 0.000 Nucleated RBC % 0.0 Sodium 137 Potassium 3.3 L Chloride 103 Carbon Dioxide 26 Anion Gap 8 BUN 8 L Creatinine 0.82 Estim Creat Clear Calc 68 Estimated GFR > 60 Glucose 118 H Calcium 8.6 Total Bilirubin 0.7 AST 26 ALT 18 Alkaline Phosphatase 84 Total Protein 5.9 L Albumin 3.2 L Quality VTE Prophylaxis VTE prophylaxis: pharmacologic ordered
[2025-05-17 14:00] VITALS: BP 109/55; PULSE 95; RESP 18; TEMP 37.1; O2SAT 100
--- NOTE | 2025-05-17 14:30 | P.CDI_ITS ---
CDI Query Clarification Request Altered mental status has been documented in progress notes. Please clarify the acuity of alteration in mental status: ? Acute ? Chronic ? Acute and chronic ? Unable to determine ? Other, please specify Please clarify the underlying possible/probable/suspected cause for the altered mental status in the progress notes: ? Encephalopathy (metabolic, COVID, hepatic, hypoxic, uremic, Wernicke, other) ? Neurologic condition (CVA/TIA/NPH/seizure) ? Electrolyte/metabolic imbalance/dehydration ? Infectious process (i.e. meningitis/encephalitis) ? Psychiatric condition ? Respiratory condition ? Dementia ? Other, please specify ? Unknown/unable to determine (1) Sepsis: Code(s): A41.9 - Sepsis, unspecified organism Status: Ruled-out Assessment and Plan: * sepsis present on admission as evidenced by tachycardia, tachypnea, leukocytosis * BP stable, LA WNL * source: UTI with possible prostatitis * received 1L bolus in ED followed by LR 125cc/hr overnight * management of UTI as below * Urine culture still pending * Leukocytosis remains elevated - could be 2/2 to procedure, monitor on am labs * WBC down from 27.9 -> 13.5 -> 9.0 -> 10.6 * Continue to monitor labs, cultures - final results negative * Blood cultures negative for growth - final (2) AMS (altered mental status): Qualifiers: Altered mental status type: delirium Qualified Code(s): R41.0 - Disorientation, unspecified Code(s): R41.82 - Altered mental status, unspecified Status: Acute Assessment and Plan: * Head CT, 05/09 with no acute process, old lacunar infarcts in the R basal ganglia and coronal radiata of the bilateral frontal and right parietal lobes. Age-related changes. * recent dx of CVA on 04/23. MRI showed a small acute infarct at the genu of the right corpus callosum and several old lacunar infarcts at the right basal ganglia and right frontal and parietal lobe dobbins radiata. * developed agitation during last admission, thought to be secondary to CVA vs. side effect of Keppra so was transitioned to Lacosamide * UDS + for cannabis 04/22 * UA consistent with UTI, imaging suggest prostatitis * suspect worsening mental status secondary to acute UTI/prostatitis. Management as below. * Mentation appropriate this morning, however he ripped out his IV and catheter again last night * Reconsult neurology as pt continues to be aggressive at night * Started on Aricept 10mg * 5mg ODT zyprexa with 2.5mg BID prn (3) UTI (urinary tract infection): Qualifiers: Urinary tract infection type: acute cystitis Hematuria presence: without hematuria Qualified Code(s): N30.00 - Acute cystitis without hematuria Code(s): N39.0 - Urinary tract infection, site not specified Status: Acute Assessment and Plan: * UA: Cloudy, 1+ protein, 1+ ketones, 3+ blood, 3+ leuk esterase, 21-50 RBC, greater than 100 WBC, WBC clumps present, no epithelial * concern for prostatitis per CT * UCx pending * no previous micro urine available for review * leukocytosis increasing. Afebrile. Otherwise nonseptic. * Started on IV Ciprofloxacin - switched to oral on 05/13 (4) Prostatitis: Qualifiers: Prostatitis type: acute Qualified Code(s): N41.0 - Acute prostatitis Code(s): N41.9 - Inflammatory disease of prostate, unspecified Status: Acute Assessment and Plan: * CT showed indicators of prostatitis * started on ceftriaxone on 05/09 * Urine culture pending * urology consulted * Stat cystoscopy with clot evacuation and complex Viera catheter insertion * During operation, significant blood clot in obvious injury to the m embranous urethra, [address] placed. * Started on Ciprofloxacin IV switched to Oral on 05/13 <Monica Benton RN - Last Filed: 05/17/25 14:31> Clarified Diagnosis Clarified Diagnosis: Alteration of mental status - unable to be determined, possibly encephalopathic/neurologic <Augusto Guillermo PA-C - Last Filed: 05/17/25 15:06>
--- NOTE | 2025-05-17 14:30 | WPDCDIQUERY2 ---
CDI Query Clarification Request Altered mental status has been documented in progress notes. Please clarify the acuity of alteration in mental status: ? Acute ? Chronic ? Acute and chronic ? Unable to determine ? Other, please specify Please clarify the underlying possible/probable/suspected cause for the altered mental status in the progress notes: ? Encephalopathy (metabolic, COVID, hepatic, hypoxic, uremic, Wernicke, other) ? Neurologic condition (CVA/TIA/NPH/seizure) ? Electrolyte/metabolic imbalance/dehydration ? Infectious process (i.e. meningitis/encephalitis) ? Psychiatric condition ? Respiratory condition ? Dementia ? Other, please specify ? Unknown/unable to determine (1) Sepsis: Code(s): A41.9 - Sepsis, unspecified organism Status: Ruled-out Assessment and Plan: sepsis present on admission as evidenced by tachycardia, tachypnea, leukocytosis BP stable, LA WNL source: UTI with possible prostatitis received 1L bolus in ED followed by LR 125cc/hr overnight management of UTI as below Urine culture still pending Leukocytosis remains elevated - could be 2/2 to procedure, monitor on am labs WBC down from 27.9 -> 13.5 -> 9.0 -> 10.6 Continue to monitor labs, cultures - final results negative Blood cultures negative for growth - final (2) AMS (altered mental status): Qualifiers: Altered mental status type: delirium Qualified Code(s): R41.0 - Disorientation, unspecified Code(s): R41.82 - Altered mental status, unspecified Status: Acute Assessment and Plan: Head CT, 05/09 with no acute process, old lacunar infarcts in the R basal ganglia and coronal radiata of the bilateral frontal and right parietal lobes. Age-related changes. recent dx of CVA on 04/23. MRI showed a small acute infarct at the genu of the right corpus callosum and several old lacunar infarcts at the right basal ganglia and right frontal and parietal lobe dobbins radiata. developed agitation during last admission, thought to be secondary to CVA vs. side effect of Keppra so was transitioned to Lacosamide UDS + for cannabis 04/22 UA consistent with UTI, imaging suggest prostatitis suspect worsening mental status secondary to acute UTI/prostatitis. Management as below. Mentation appropriate this morning, however he ripped out his IV and catheter again last night Reconsult neurology as pt continues to be aggressive at night Started on Aricept 10mg 5mg ODT zyprexa with 2.5mg BID prn (3) UTI (urinary tract infection): Qualifiers: Urinary tract infection type: acute cystitis Hematuria presence: without hematuria Qualified Code(s): N30.00 - Acute cystitis without hematuria Code(s): N39.0 - Urinary tract infection, site not specified Status: Acute Assessment and Plan: UA: Cloudy, 1+ protein, 1+ ketones, 3+ blood, 3+ leuk esterase, 21-50 RBC, greater than 100 WBC, WBC clumps present, no epithelial concern for prostatitis per CT UCx pending no previous micro urine available for review leukocytosis increasing. Afebrile. Otherwise nonseptic. Started on IV Ciprofloxacin - switched to oral on 05/13 (4) Prostatitis: Qualifiers: Prostatitis type: acute Qualified Code(s): N41.0 - Acute prostatitis Code(s): N41.9 - Inflammatory disease of prostate, unspecified Status: Acute Assessment and Plan: CT showed indicators of prostatitis started on ceftriaxone on 05/09 Urine culture pending urology consulted Stat cystoscopy with clot evacuation and complex Viera catheter insertion During operation, significant blood clot in obvious injury to the membranous urethra, [address] placed. Started on Ciprofloxacin IV switched to Oral on 05/13 <Monica Benton RN - Last Filed: 05/17/25 14:31> Clarified Diagnosis Clarified Diagnosis: Alteration of mental status - unable to be determined, possibly encephalopathic/neurologic <Augusto Guillermo PA-C - Last Filed: 05/17/25 15:06>
[2025-05-17] MEDS: ACETAMINOPHEN 325 MG TABLET 650 MG PO (16:47)
[2025-05-17 21:03] VITALS: BP 101/67; PULSE 83; RESP 18; TEMP 36.6; O2SAT 100
[2025-05-18 04:08] VITALS: BP 118/78; PULSE 62; RESP 18; TEMP 36.6; O2SAT 99
[2025-05-18 06:06] LABS: Hematocrit 25.1 % (42.0-52.0); Hemoglobin 8.4 g/dL (14.0-18.0); Immature Granulocyte Percent A 1.2 % (0-0.5); Lymphocytes Absolute Auto 1.18 K/mm3 (0.9-3.2); Mean Corpuscular HGB Conc 33.5 g/dl (32-36); Mean Corpuscular Hemoglobin 31.1 pg (26-34); Mean Corpuscular Volume 93.0 fl (80-100); Nucleated Red Blood Cells Absolute Auto 0.000 K/mm3 (0.0-0.012); Nucleated Red Blood Cells Perc 0.0 % (0.0-0.2); Platelet Count Result 514 k/mm3 (150-375); Red Blood Count 2.70 M/mm3 (4.6-6.20); White Blood Count 10.4 K/mm3 (4.5-10.0)
[2025-05-18 06:31] LABS: Alanine Aminotransferase 17 U/L (6-50); Albumin Level 3.1 g/dL (3.5-5.1); Alkaline Phosphatase 94 U/L (38-126); Anion Gap 5 mmol/L (4-12); Aspartate Amino Transferase 22 U/L (17-59); Bilirubin,Total 0.6 mg/dL (0.2-1.3); Blood Urea Nitrogen 11 mg/dL (9-20); Calcium 8.6 mg/dL (8.4-10.2); Carbon Dioxide 26 mmol/L (22-30); Chloride 104 mmol/L (98-107); Estimated CRCL calculation 69 ml/min; Estimated Glomerular Filt Rate > 60; Glucose 122 mg/dL (65-110); Potassium 3.3 mmol/L (3.4-5.0); Sodium 135 mmol/L (137-145); Total Protein 6.0 g/dL (6.3-8.2)
--- NOTE | 2025-05-18 06:59 | P.PNIM_ITS ---
Progress Note: A&P Assessment and Plan (1) Sepsis: Code(s): A41.9 - Sepsis, unspecified organism Status: Ruled-out Assessment and Plan: -sepsis present on admission as evidenced by tachycardia, tachypnea, leuko cytosis -source: UTI with possible prostatitis -management of UTI as below - Urine culture still pending -WBC down from 27.9 -> 13.5 -> 9.0 -> 10.6 -Blood cultures negative for growth - final (2) AMS (altered mental status): Qualifiers: Altered mental status type: delirium Qualified Code(s): R41.0 - Disorientation, unspecified Code(s): R41.82 - Altered mental status, unspecified Status: Acute Assessment and Plan: -Head CT, 05/09 with no acute process, old lacunar infarcts in the R basal ganglia and coronal radiata of the bilateral frontal and right parietal lobes. Age-related changes. -recent dx of CVA on 04/23. MRI showed a small acute infarct at the genu of the right corpus callosum and several old lacunar infarcts at the right basal ganglia and right frontal and parietal lobe dobbins radiata. -developed agitation during last admission, thought to be secondary to CVA vs. side effect of Keppra so was transitioned to Lacosamide -UDS + for cannabis 04/22 -UA consistent with UTI, imaging suggest prostatitis -suspect worsening mental status secondary to acute UTI/prostatitis. Management as below. -Started on Aricept 10mg -5mg ODT zyprexa with 2.5mg BID prn - improved with medication changes (3) UTI (urinary tract infection): Qualifiers: Hematuria presence: without hematuria Urinary tract infection type: acute cystitis Qualified Code(s): N30.00 - Acute cystitis without hematuria Code(s): N39.0 - Urinary tract infection, site not specified Status: Acute Assessment and Plan: -UA: Cloudy, 1+ protein, 1+ ketones, 3+ blood, 3+ leuk esterase, 21-50 RBC, greater than 100 WBC, WBC clumps present, no epithelial -concern for prostatitis per CT -UCx pending -no previous micro urine available for review - Afebrile. Otherwise nonseptic. Leukocytosis improved -Started on IV Ciprofloxacin - switched to oral on 05/13. Urology would like 2 more weeks of antibiotics (4) Prostatitis: Qualifiers: Prostatitis type: acute Qualified Code(s): N41.0 - Acute prostatitis Code(s): N41.9 - Inflammatory disease of prostate, unspecified Status: Acute Assessment and Plan: -CT showed indicators of prostatitis -Urine culture pending -urology consulted * Stat cystoscopy with clot evacuation and complex Viera catheter insertion * During operation, significant blood clot in obvious injury to the membranous urethra, [address] catheter placed. -Started on Ciprofloxacin IV switched to Oral on 05/13 (5) Anemia: Qualifiers: Anemia type: unspecified type Qualified Code(s): D64.9 - Anemia, unspecified Code(s): D64.9 - Anemia, unspecified Status: Acute Assessment and Plan: -Hgb 12.3 upon admission on 08/25. 15.7 at discharge on 04/29. -iron and iron saturation low - acute drop likely secondary to hematuria in setting of Viera trauma -Transfuse if <7 -Trend H&H -Of note, recently started on Eliquis and Plavix secondary to acute stroke earlier this month -05/18: Hgb 8.4 (6) History of CVA (cerebrovascular accident): Code(s): Z86.73 - Personal history of transient ischemic attack (TIA), and cerebral infarction without residual deficits Status: Chronic Assessment and Plan: -Brain MRI, 04/23 with small acute infarct at the genu of the right corpus callosum, several old lacunar infarcts, multiple small foci of susceptibility artifact scattered throughout the brain including the cerebral hemispheres, midbrain and cerebellum consistent with chronic microhemorrhage typically seen in the setting of hypertension but can also be seen with amyloid angiopathy. -worsening AMS likely secondary to UTI, however could be sequela of recent CVA. started on abx, monitor response. -discussed with Dr. Miguel falk to stop ASA, Plavix as patient was found to have Afib on last admission. Eliqus on hold due to Viera trauma and plan to hold until voiding trial completed to avoid recurrent bleeding. - Neurology following (7) Seizure disorder: Code(s): G40.909 - Epilepsy, unspecified, not intractable, without status epilepticus Status: Chronic Assessment and Plan: -continue lacosamide (switched from Keppra due to agitation on last admit) (8) Atrial fibrillation: Qualifiers: Atrial fibrillation type: unspecified chronic Qualified Code(s): I48.20 - Chronic atrial fibrillation, unspecified Code(s): I48.91 - Unspecified atrial fibrillation Status: Chronic Assessment and Plan: -continue metoprolol. Eliquis on hold due to hematuria. (9) Hypertension: Qualifiers: Hypertension type: essential hypertension Qualified Code(s): I10 - Essential (primary) hypertension Code(s): I10 - Essential (primary) hypertension Status: Chronic Assessment and Plan: -chronic, 118/78 9 -continue home medications: Lisinopril, metoprolol -monitor (10) Thrombocytosis: Code(s): D75.839 - Thrombocytosis, unspecified Status: Acute Assessment and Plan: -Upon admission Plts 317 - 05/15-05/17: 380 -> 479 -> 518-->514 -Could be 2/2 underlying anemia, prostatitis, UTI -No splenomegaly on exam -Monitor on daily lab -Consider heme/onc consult if worsens Plan DVT Prophylaxis: Anam Disposition: TBD Code Status: Full code Subjective Date/time seen: 05/18/25 06:59 Interval history: Patient seen examined at bedside. More alert oriented this morning and cooperative. Patient was initially accepted to [facility] however upon re-evaluation today was denied and so alternative discharge plan will need to be pursued. Patient is medically stable for discharge. Discussed discharge plan with Urology. Review of Systems Review of Systems: All systems reviewed & are unremarkable except as noted in HPI and below Exam Narrative: General: NAD Eyes: EOMI ENT: neck supple Cardiovascular: Regular rate and rhythm Respiratory: Clear to auscultation, respirations even and unlabored on RA Gastrointestinal: Soft, non tender Genitourinary: no suprapubic tenderness, Viera catheter draining clear urine Musculoskeletal: No edema Skin: warm, dry Neuro: Alert. Psych: Mood appropriate Objective Data Vital Signs Vital Signs: Vital Signs - 24 hr 05/17/25 09:50 05/17/25 09:53 05/17/25 09:53 Temperature 97.8 F Pulse Rate 101 H 101 H 101 H Respiratory Rate 16 16 Blood Pressure 143/83 H Pulse Oximetry 95 95 Oxygen Delivery Room Air Fraction of Inspired Oxygen 05/17/25 14:00 05/17/25 21:00 05/17/25 21:03 Temperature 98.8 F 97.8 F Pulse Rate 95 83 Respiratory Rate 18 18 Blood Pressure 109/55 L 101/67 Pulse Oximetry 100 100 Oxygen Delivery Room Air Fraction of Inspired Oxygen 05/18/25 04:08 Temperature 97.8 F Pulse Rate 62 Respiratory Rate 18 Blood Pressure 118/78 Pulse Oximetry 99 Oxygen Delivery Fraction of Inspired Oxygen Intake/Output Intake/Output: Intake & Output 05/15/25 05/16/25 05/17/25 05/18/25 23:59 23:59 23:59 23:59 Intake Total 770 240 690 120 Output Total 1250 1350 950 200 [facility] -480 -1110 -260 -80 Meds/Results Medications: Active Medications Generic Name Dose Route Start Last Admin Trade Name Freq PRN Reason Stop Dose Admin Acetaminophen 650 mg 05/09/25 13:23 05/17/25 16:47 Acetaminophen 325 Mg Tablet PO 650 mg Q6H PRN Administration Pain Rated 1-3 Atorvastatin Calcium 40 mg 05/10/25 09:00 05/17/25 09:53 Atorvastatin 40 Mg Tablet PO 40 mg DAILY JUSTINA Administration Bupropion HCl 150 mg 05/10/25 09:00 05/17/25 09:52 Bupropion Hcl Xl (24 Hr) 150 Mg Tabcr PO 150 mg DAILY JUSTINA Administration Ciprofloxacin 500 mg 05/13/25 21:00 05/17/25 20:37 Ciprofloxacin 500 Mg Tab PO 500 mg Q12HR JUSTINA Administration Donepezil HCl 10 mg 05/10/25 09:00 05/17/25 09:53 Donepezil Hcl 10 Mg Tablet PO 10 mg DAILY JUSTINA Administration Fentanyl Citrate 25 mcg 05/11/25 12:01 Fentanyl Citrate Inj (*Crx) 100 Mcg/2 Ml Vial IV PUSH Q2M PRN Pain Hydralazine HCl 10 mg 05/13/25 05:42 05/13/25 05:59 Hydralazine Hcl 20 Mg/Ml Vial IV PUSH 10 mg Q4H PRN Administration SYSTOLIC BP >160 Lacosamide 200 mg 05/09/25 22:35 05/17/25 20:37 Lacosamide (*Crx) 200 Mg Tablet PO 200 mg Q12HR JUSTINA Administration Lisinopril 40 mg 05/10/25 09:00 05/17/25 09:52 Lisinopril 20 Mg Tablet PO 40 mg QAM JUSTINA Administration Metoprolol Succinate 50 mg 05/10/25 09:00 05/17/25 09:53 Metoprolol Succinate Ext Rel 50 Mg Tabcr PO 50 mg DAILY JUSTINA Administration Olanzapine 5 mg 05/16/25 09:00 05/17/25 09:53 Olanzapine Odt Dispertab 5 Mg PO 5 mg DAILY JUSTINA Administration Olanzapine 2.5 mg 05/16/25 08:58 05/18/25 00:55 Olanzapine 2.5 Mg Tablet PO 2.5 mg BID PRN Administration Agitation Ondansetron HCl 4 mg 05/09/25 13:24 Ondansetron Hcl Odt 4 Mg Tablet PO Q4H PRN Nausea And Vomiting Ondansetron HCl 4 mg 05/11/25 12:01 Ondansetron Inj 4 Mg/2 Ml Vial IV PUSH ONCE PRN Nausea Tamsulosin HCl 0.4 mg 05/14/25 09:00 05/17/25 09:53 Tamsulosin Hcl 0.4 Mg Capsule PO 0.4 mg QAM JUSTINA Administration Radiology Results: ITS Impressions Head CT 05/09/25 12:10 IMPRESSION: 1. Few old lacunar infarcts in the right basal ganglia and in the coronal radiata of the bilateral frontal and right parietal lobes. No acute intracranial process. 2. Age-related changes including mild to moderate diffuse volume loss and extensive scattered white matter hypoattenuation consistent with chronic small vessel ischemic disease. Chest/Abdomen/Pelvis CT 05/09/25 12:34 IMPRESSION: 1. Prostatomegaly with surrounding from trace stranding also extending around the bilateral seminal vesicles which raises concern for prostatitis. 2. No acute cardiopulmonary disease or other acute intra-abdominal/pelvic process. Labs Labs: Laboratory Results - last 24 hr 05/18/25 05:48 WBC 10.4 H RBC 2.70 L Hgb 8.4 L Hct 25.1 L MCV 93.0 MCH 31.1 MCHC 33.5 RDW 15.0 H Plt Count 514 H MPV 8.5 Immature Gran % (Auto) 1.2 H Neut % (Auto) 78.4 H Lymph % (Auto) 11.4 L [place] % (Auto) 6.1 Eos % (Auto) 2.4 Baso % (Auto) 0.5 Lymph # (Auto) 1.18 [place] # (Auto) 0.6 Eos # (Auto) 0.3 Baso # (Auto) 0.1 Abs Immat Gran (auto) 0.12 H Absolute Neuts (auto) 8.1 H Absolute Nucleated RBC 0.000 Nucleated RBC % 0.0 Sodium 135 L Potassium 3.3 L Chloride 104 Carbon Dioxide 26 Anion Gap 5 BUN 11 Creatinine 0.81 Estim Creat Clear Calc 69 Estimated GFR > 60 Glucose 122 H Calcium 8.6 Total Bilirubin 0.6 AST 22 ALT 17 Alkaline Phosphatase 94 Total Protein 6.0 L Albumin 3.1 L Quality VTE Prophylaxis VTE prophylaxis: pharmacologic ordered
[2025-05-18 09:30] VITALS: BP 142/79; PULSE 90; RESP 18; TEMP 36.2; O2SAT 99
[2025-05-18 09:32] VITALS: PULSE 95; RESP 18; O2SAT 99
[2025-05-18] MEDS: buPROPion HCL XL (24 HR) 150 MG TABCR PO (09:32)
[2025-05-18] MEDS: TAMSULOSIN HCL 0.4 MG CAPSULE PO (09:32)
[2025-05-18] MEDS: CIPROFLOXACIN 500 MG TAB PO ×2 (09:32→20:04)
[2025-05-18 09:33] VITALS: PULSE 95
[2025-05-18] MEDS: OLANZapine ODT DISPERTAB 5 MG PO (09:33)
[2025-05-18] MEDS: DONEPEZIL HCL 10 MG TABLET PO (09:33)
[2025-05-18] MEDS: ATORVASTATIN 40 MG TABLET PO (09:33)
[2025-05-18] MEDS: POTASSIUM CHLORIDE 20 MEQ PACKET (FOR LIQUID) 40 MEQ PO (09:33)
[2025-05-18] MEDS: LACOSAMIDE (*CRX) 200 MG TABLET PO ×2 (09:33→20:04)
[2025-05-18] MEDS: METOPROLOL SUCCINATE EXT REL 50 MG TABCR PO (09:33)
--- NOTE | 2025-05-18 11:32 | P.PNUR_ITS ---
Progress Note: A&P Assessment and Plan (1) Gross hematuria: Code(s): R31.0 - Gross hematuria Status: Acute (2) Prostatitis: Qualifiers: Prostatitis type: acute Qualified Code(s): N41.0 - Acute prostatitis Code(s): N41.9 - Inflammatory disease of prostate, unspecified Status: Acute Plan -discharge with meyer catheter and do voiding trial at rehab on friday this week. -continue to hold eliquis until after the voiding trial is successful -OK to discharge with cipro and once cultures have resulted can change to culture driven antibiotic therapy -follow up 3weeks as outpatient for ua/PVR Subjective Subjective Date/Time Seen: 05/18/25 11:33 Interval history: no acute events overnight. meyer still in place Review of Systems Review of Systems: All systems reviewed & are unremarkable except as noted in HPI and below Exam Narrative: General: The patient is well-developed in no acute distress. Appears comfortable on exam. HEENT: Normocephalic, normal ear and nose structures Skin: Warm, dry, with no lesions seen on visible skin Lungs: Normal respiratory effort Heart: Appears well perfused Abdomen: Nondistended Suprapubic area: Nondistended Extremities: Upper with no deformities. Lower - no edema Neurologic: The patient is oriented to person. Easily redirected. Normal mood and affect. Urinary Catheter: Urinary Catheter: patent and draining and urine clear Objective Data Vital Signs Vital Signs: Vital Signs - 24 hr 05/17/25 14:00 05/17/25 21:00 05/17/25 21:03 Temperature 98.8 F 97.8 F Pulse Rate 95 83 Respiratory Rate 18 18 Blood Pressure 109/55 L 101/67 Pulse Oximetry 100 100 Oxygen Delivery Room Air Fraction of Inspired Oxygen 05/18/25 04:08 05/18/25 09:30 05/18/25 09:32 Temperature 97.8 F 97.2 F L Pulse Rate 62 90 95 Respiratory Rate 18 18 18 Blood Pressure 118/78 142/79 H Pulse Oximetry 99 99 99 Oxygen Delivery Room Air Fraction of Inspired Oxygen 05/18/25 09:33 Temperature Pulse Rate 95 Respiratory Rate Blood Pressure Pulse Oximetry Oxygen Delivery Fraction of Inspired Oxygen Intake/Output Intake/Output: Intake & Output 05/15/25 05/16/25 05/17/25 05/18/25 23:59 23:59 23:59 23:59 Intake Total 770 240 690 240 Output Total 1250 1350 950 200 Balance -480 -1110 -260 40 Meds/Results Medications: Active Medications Generic Name Dose Route Start Last Admin Trade Name Freq PRN Reason Stop Dose Admin Acetaminophen 650 mg 05/09/25 13:23 05/17/25 16:47 Acetaminophen 325 Mg Tablet PO 650 mg Q6H PRN Administration Pain Rated 1-3 Atorvastatin Calcium 40 mg 05/10/25 09:00 05/18/25 09:33 Atorvastatin 40 Mg Tablet PO 40 mg DAILY JUSTINA Administration Bupropion HCl 150 mg 05/10/25 09:00 05/18/25 09:32 Bupropion Hcl Xl (24 Hr) 150 Mg Tabcr PO 150 mg DAILY JUSTINA Administration Ciprofloxacin 500 mg 05/13/25 21:00 05/18/25 09:32 Ciprofloxacin 500 Mg Tab PO 500 mg Q12HR JUSTINA Administration Donepezil HCl 10 mg 05/10/25 09:00 05/18/25 09:33 Donepezil Hcl 10 Mg Tablet PO 10 mg DAILY JUSTINA Administration Fentanyl Citrate 25 mcg 05/11/25 12:01 Fentanyl Citrate Inj (*Crx) 100 Mcg/2 Ml Vial IV PUSH Q2M PRN Pain Ferrous Gluconate 324 mg 05/18/25 12:00 Ferrous Gluconate 324 Mg Tablet PO DAILY@1200 [facility] Hydralazine HCl 10 mg 05/13/25 05:42 05/13/25 05:59 Hydralazine Hcl 20 Mg/Ml Vial IV PUSH 10 mg Q4H PRN Administration SYSTOLIC BP >160 Lacosamide 200 mg 05/09/25 22:35 05/18/25 09:33 Lacosamide (*Crx) 200 Mg Tablet PO 200 mg Q12HR JUSTINA Administration Lisinopril 40 mg 05/10/25 09:00 05/18/25 09:32 Lisinopril 20 Mg Tablet PO 40 mg QAM JUSTINA Administration Metoprolol Succinate 50 mg 05/10/25 09:00 05/18/25 09:33 Metoprolol Succinate Ext Rel 50 Mg Tabcr PO 50 mg DAILY JUSTINA Administration Olanzapine 5 mg 05/16/25 09:00 05/18/25 09:33 Olanzapine Odt Dispertab 5 Mg PO 5 mg DAILY JUSTINA Administration Olanzapine 2.5 mg 05/16/25 08:58 05/18/25 00:55 Olanzapine 2.5 Mg Tablet PO 2.5 mg BID PRN Administration Agitation Ondansetron HCl 4 mg 05/09/25 13:24 Ondansetron Hcl Odt 4 Mg Tablet PO Q4H PRN Nausea And Vomiting Ondansetron HCl 4 mg 05/11/25 12:01 Ondansetron Inj 4 Mg/2 Ml Vial IV PUSH ONCE PRN Nausea Tamsulosin HCl 0.4 mg 05/14/25 09:00 05/18/25 09:32 Tamsulosin Hcl 0.4 Mg Capsule PO 0.4 mg QAM JUSTINA Administration Radiology Results: ITS Impressions Head CT 05/09/25 12:10 IMPRESSION: 1. Few old lacunar infarcts in the right basal ganglia and in the coronal radiata of the bilateral frontal and right parietal lobes. No acute intracranial process. 2. Age-related changes including mild to moderate diffuse volume loss and extensive scattered white matter hypoattenuation consistent with chronic small vessel ischemic disease. Chest/Abdomen/Pelvis CT 05/09/25 12:34 IMPRESSION: 1. Prostatomegaly with surrounding from trace stranding also extending around the bilateral seminal vesicles which raises concern for prostatitis. 2. No acute cardiopulmonary disease or other acute intra-abdominal/pelvic process. Labs Labs: Laboratory Results - last 24 hr 05/18/25 05:48 WBC 10.4 H RBC 2.70 L Hgb 8.4 L Hct 25.1 L MCV 93.0 MCH 31.1 MCHC 33.5 RDW 15.0 H Plt Count 514 H MPV 8.5 Immature Gran % (Auto) 1.2 H Neut % (Auto) 78.4 H Lymph % (Auto) 11.4 L [place] % (Auto) 6.1 Eos % (Auto) 2.4 Baso % (Auto) 0.5 Lymph # (Auto) 1.18 [place] # (Auto) 0.6 Eos # (Auto) 0.3 Baso # (Auto) 0.1 Abs Immat Gran (auto) 0.12 H Absolute Neuts (auto) 8.1 H Absolute Nucleated RBC 0.000 Nucleated RBC % 0.0 Sodium 135 L Potassium 3.3 L Chloride 104 Carbon Dioxide 26 Anion Gap 5 BUN 11 Creatinine 0.81 Estim Creat Clear Calc 69 Estimated GFR > 60 Glucose 122 H Calcium 8.6 Total Bilirubin 0.6 AST 22 ALT 17 Alkaline Phosphatase 94 Total Protein 6.0 L Albumin 3.1 L
[2025-05-18] MEDS: FERROUS GLUCONATE 324 MG TABLET PO (12:10)
[2025-05-18 13:53] VITALS: BP 125/63; PULSE 75; RESP 16; TEMP 36.7; O2SAT 96
[2025-05-18] MEDS: ACETAMINOPHEN 325 MG TABLET 650 MG PO (16:17)
[2025-05-18 20:06] VITALS: BP 146/63; PULSE 107; RESP 17; TEMP 36.7; O2SAT 90
[2025-05-19] VITALS (13 sets, daily range): BP systolic 84–149; BP diastolic 7–91; PULSE 67–115; RESP 6–20; TEMP 36.6–36.8; O2SAT 93–100
[2025-05-19 04:59] LABS: Hematocrit 26.6 % (42.0-52.0); Hemoglobin 8.5 g/dL (14.0-18.0); Immature Granulocyte Percent A 1.0 % (0-0.5); Lymphocytes Absolute Auto 1.07 K/mm3 (0.9-3.2); Mean Corpuscular HGB Conc 32.0 g/dl (32-36); Mean Corpuscular Hemoglobin 30.5 pg (26-34); Mean Corpuscular Volume 95.3 fl (80-100); Nucleated Red Blood Cells Absolute Auto 0.000 K/mm3 (0.0-0.012); Nucleated Red Blood Cells Perc 0.0 % (0.0-0.2); Platelet Count Result 573 k/mm3 (150-375); Red Blood Count 2.79 M/mm3 (4.6-6.20); White Blood Count 9.9 K/mm3 (4.5-10.0)
[2025-05-19 05:15] LABS: Alanine Aminotransferase 15 U/L (6-50); Albumin Level 3.2 g/dL (3.5-5.1); Alkaline Phosphatase 90 U/L (38-126); Anion Gap 5 mmol/L (4-12); Aspartate Amino Transferase 24 U/L (17-59); Bilirubin,Total 0.4 mg/dL (0.2-1.3); Blood Urea Nitrogen 11 mg/dL (9-20); Calcium 8.6 mg/dL (8.4-10.2); Carbon Dioxide 29 mmol/L (22-30); Chloride 103 mmol/L (98-107); Estimated CRCL calculation 65 ml/min; Estimated Glomerular Filt Rate > 60; Glucose 119 mg/dL (65-110); Potassium 3.5 mmol/L (3.4-5.0); Sodium 137 mmol/L (137-145); Total Protein 5.9 g/dL (6.3-8.2)
--- NOTE | 2025-05-19 07:16 | P.PNIM_ITS ---
Progress Note: A&P Assessment and Plan (1) Sepsis: Code(s): A41.9 - Sepsis, unspecified organism Status: Ruled-out Assessment and Plan: -sepsis present on admission as evidenced by tachycardia, tachypnea, leuko cytosis -source: UTI with possible prostatitis -management of UTI as below - Urine culture still pending -WBC down from 27.9 on admission, now normalized -Blood cultures negative for growth - final L (2) AMS (altered mental status): Qualifiers: Altered mental status type: delirium Qualified Code(s): R41.0 - Disorientation, unspecified Code(s): R41.82 - Altered mental status, unspecified Status: Acute Assessment and Plan: -Head CT, 05/09 with no acute process, old lacunar infarcts in the R basal ganglia and coronal radiata of the bilateral frontal and right parietal lobes. Age-related changes. -recent dx of CVA on 04/23. MRI showed a small acute infarct at the genu of the right corpus callosum and several old lacunar infarcts at the right basal ganglia and right frontal and parietal lobe dobbins radiata. -developed agitation during last admission, thought to be secondary to CVA vs. side effect of Keppra so was transitioned to Lacosamide -UDS + for cannabis 04/22 -UA consistent with UTI, imaging suggest prostatitis -suspect worsening mental status secondary to acute UTI/prostatitis. Management as below. -Started on Aricept 10mg -5mg ODT zyprexa with 2.5mg BID prn - patient had episode of altered consciousness, most likely orthostatic event/vasovagal, less likely seizure or CVA, but neuro reconsulted. (3) UTI (urinary tract infection): Qualifiers: Hematuria presence: without hematuria Urinary tract infection type: acute cystitis Qualified Code(s): N30.00 - Acute cystitis without hematuria Code(s): N39.0 - Urinary tract infection, site not specified Status: Acute Assessment and Plan: -UA: Cloudy, 1+ protein, 1+ ketones, 3+ blood, 3+ leuk esterase, 21-50 RBC, greater than 100 WBC, WBC clumps present, no epithelial -concern for prostatitis per CT -UCx pending -no previous micro urine available for review - Afebrile. Otherwise nonseptic. Leukocytosis improved -Started on IV Ciprofloxacin - switched to oral on 05/13. Urology would like 2 more weeks of antibiotics, end date 05/27. (4) Prostatitis: Qualifiers: Prostatitis type: acute Qualified Code(s): N41.0 - Acute prostatitis Code(s): N41.9 - Inflammatory disease of prostate, unspecified Status: Acute Assessment and Plan: -CT showed indicators of prostatitis -Urine culture pending -urology consulted * Stat cystoscopy with clot evacuation and complex Viera catheter insertion * During operation, significant blood clot in obvious injury to the membranous urethra, [address] placed. -Started on Ciprofloxacin IV switched to Oral on 05/13 - urology planning for voiding trial 05/20 (5) Anemia: Qualifiers: Anemia type: unspecified type Qualified Code(s): D64.9 - Anemia, unspecified Code(s): D64.9 - Anemia, unspecified Status: Acute Assessment and Plan: -Hgb 12.3 upon admission on 05/09. 15.7 at discharge on 04/29. -iron and iron saturation low - acute drop likely secondary to hematuria in setting of Viera trauma -Transfuse if <7 -Trend H&H -Of note, recently started on Eliquis and Plavix secondary to acute stroke earlier this month -05/18: Hgb 8.4 (6) History of CVA (cerebrovascular accident): Code(s): Z86.73 - Personal history of transient ischemic attack (TIA), and cerebral infarction without residual deficits Status: Chronic Assessment and Plan: -Brain MRI, 04/23 with small acute infarct at the genu of the right corpus callosum, several old lacunar infarcts, multiple small foci of susceptibility artifact scattered throughout the brain including the cerebral hemispheres, midbrain and cerebellum consistent with chronic microhemorrhage typically seen in the setting of hypertension but can also be seen with amyloid angiopathy. -worsening AMS likely secondary to UTI, however could be sequela of recent CVA. started on abx, monitor response. -discussed with Dr. Miguel falk to stop ASA, Plavix as patient was found to have Afib on last admission. Eliqus on hold due to Viera trauma and plan to hold until voiding trial completed to avoid recurrent bleeding. - Neurology reconsulted due to episode of altered consciousness (7) Seizure disorder: Code(s): G40.909 - Epilepsy, unspecified, not intractable, without status epilepticus Status: Chronic Assessment and Plan: -continue lacosamide (switched from Keppra due to agitation on last admit) - obtaining repeat EEG due to episode of altered consciousness (8) Atrial fibrillation: Qualifiers: Atrial fibrillation type: unspecified chronic Qualified Code(s): I48.20 - Chronic atrial fibrillation, unspecified Code(s): I48.91 - Unspecified atrial fibrillation Status: Chronic Assessment and Plan: -continue metoprolol. Eliquis on hold due to hematuria. (9) Hypertension: Qualifiers: Hypertension type: essential hypertension Qualified Code(s): I10 - Essential (primary) hypertension Code(s): I10 - Essential (primary) hypertension Status: Chronic Assessment and Plan: -chronic, 118/78 05/18 -continue home medications: Lisinopril, metoprolol -monitor (10) Thrombocytosis: Code(s): D75.839 - Thrombocytosis, unspecified Status: Acute Assessment and Plan: -Upon admission Plts 317 - trending up to 570 05/19 -Could be 2/2 underlying anemia, prostatitis, UTI -No splenomegaly on exam -consult hematology, appreciate recs Plan DVT Prophylaxis: Eliquis Disposition: TBD Code Status: Full code Subjective Date/time seen: 05/19/25 07:16 Interval history: Patient seen examined at bedside. Patient was rapid response this a.m., see event note. Review of Systems Review of Systems: All systems reviewed & are unremarkable except as noted in HPI and below Exam Narrative: General: ill-appearing, diaphoretic, pale Eyes: EOMI ENT: neck supple Cardiovascular: Regular rate and rhythm Respiratory: Clear to auscultation, respirations even and unlabored on RA Gastrointestinal: Soft, non tender Genitourinary: no suprapubic tenderness, Viera catheter draining clear urine Musculoskeletal: No edema Skin: warm, dry Neuro: decreased responsiveness. Oriented x4. Cranial nerves II-XII intact. Face symmetric. Speech clear. Strength 5/5 in BUEs/BLEs. Psych: Mood appropriate Objective Data Vital Signs Vital Signs: Vital Signs - 24 hr 05/18/25 09:30 05/18/25 09:32 05/18/25 09:33 Temperature 97.2 F L Pulse Rate 90 95 95 Respiratory Rate 18 18 Blood Pressure 142/79 H Pulse Oximetry 99 99 Oxygen Delivery Room Air Fraction of Inspired Oxygen 21 05/18/25 13:53 05/18/25 20:00 05/18/25 20:06 Temperature 98.1 F 98.0 F Pulse Rate 75 107 H Respiratory Rate 16 17 Blood Pressure 125/63 146/63 H Pulse Oximetry 96 90 Oxygen Delivery Room Air Fraction of Inspired Oxygen Intake/Output Intake/Output: Intake & Output 05/16/25 05/17/25 05/18/25 05/19/25 23:59 23:59 23:59 23:59 Intake Total 562 013 0217 150 Output Total 1350 950 550 300 Balance -1110 -260 660 -150 Meds/Results Medications: Active Medications Generic Name Dose Route Start Last Admin Trade Name Freq PRN Reason Stop Dose Admin Acetaminophen 650 mg 05/09/25 13:23 05/18/25 16:17 Acetaminophen 325 Mg Tablet PO 650 mg Q6H PRN Administration Pain Rated 1-3 Atorvastatin Calcium 40 mg 05/10/25 09:00 05/18/25 09:33 Atorvastatin 40 Mg Tablet PO 40 mg DAILY JUSTINA Administration Bupropion HCl 150 mg 05/10/25 09:00 05/18/25 09:32 Bupropion Hcl Xl (24 Hr) 150 Mg Tabcr PO 150 mg DAILY JUSTINA Administration Ciprofloxacin 500 mg 05/13/25 21:00 05/18/25 20:04 Ciprofloxacin 500 Mg Tab PO 05/27/25 20:59 500 mg Q12HR JUSTINA Administration Donepezil HCl 10 mg 05/10/25 09:00 05/18/25 09:33 Donepezil Hcl 10 Mg Tablet PO 10 mg DAILY JUSTINA Administration Fentanyl Citrate 25 mcg 05/11/25 12:01 Fentanyl Citrate Inj (*Crx) 100 Mcg/2 Ml Vial IV PUSH Q2M PRN Pain Ferrous Gluconate 324 mg 05/18/25 12:00 05/18/25 12:10 Ferrous Gluconate 324 Mg Tablet PO 324 mg DAILY@1200 JUSTINA Administration Hydralazine HCl 10 mg 05/13/25 05:42 05/13/25 05:59 Hydralazine Hcl 20 Mg/Ml Vial IV PUSH 10 mg Q4H PRN Administration SYSTOLIC BP >160 Lacosamide 200 mg 05/09/25 22:35 05/18/25 20:04 Lacosamide (*Crx) 200 Mg Tablet PO 200 mg Q12HR JUSTINA Administration Lisinopril 40 mg 05/10/25 09:00 05/18/25 09:32 Lisinopril 20 Mg Tablet PO 40 mg QAM JUSTINA Administration Metoprolol Succinate 50 mg 05/10/25 09:00 05/18/25 09:33 Metoprolol Succinate Ext Rel 50 Mg Tabcr PO 50 mg DAILY JUSTINA Administration Miscellaneous Information 1 each 05/19/25 00:01 Lacosamide Needs To Be Renewed Or It Will Automatically Discontinue. XX 06/18/25 00:00 CLARIFY JUSTINA Olanzapine 5 mg 05/16/25 09:00 05/18/25 09:33 Olanzapine Odt Dispertab 5 Mg PO 5 mg DAILY JUSTINA Administration Olanzapine 2.5 mg 05/16/25 08:58 05/19/25 02:10 Olanzapine 2.5 Mg Tablet PO 2.5 mg BID PRN Administration Agitation Ondansetron HCl 4 mg 05/09/25 13:24 Ondansetron Hcl Odt 4 Mg Tablet PO Q4H PRN Nausea And Vomiting Ondansetron HCl 4 mg 05/11/25 12:01 Ondansetron Inj 4 Mg/2 Ml Vial IV PUSH ONCE PRN Nausea Tamsulosin HCl 0.4 mg 05/14/25 09:00 05/18/25 09:32 Tamsulosin Hcl 0.4 Mg Capsule PO 0.4 mg QAM JUSTINA Administration Radiology Results: ITS Impressions Head CT 05/09/25 12:10 IMPRESSION: 1. Few old lacunar infarcts in the right basal ganglia and in the coronal radiata of the bilateral frontal and right parietal lobes. No acute intracranial process. 2. Age-related changes including mild to moderate diffuse volume loss and extensive scattered white matter hypoattenuation consistent with chronic small vessel ischemic disease. Chest/Abdomen/Pelvis CT 05/09/25 12:34 IMPRESSION: 1. Prostatomegaly with surrounding from trace stranding also extending around the bilateral seminal vesicles which raises concern for prostatitis. 2. No acute cardiopulmonary disease or other acute intra-abdominal/pelvic process. Labs Labs: Laboratory Results - last 24 hr 05/19/25 04:03 WBC 9.9 RBC 2.79 L Hgb 8.5 L Hct 26.6 L MCV 95.3 MCH 30.5 MCHC 32.0 RDW 14.9 H Plt Count 573 H MPV 8.6 Immature Gran % (Auto) 1.0 H Neut % (Auto) 78.2 H Lymph % (Auto) 10.8 L [place] % (Auto) 6.7 Eos % (Auto) 2.7 Baso % (Auto) 0.6 Lymph # (Auto) 1.07 [place] # (Auto) 0.7 H Eos # (Auto) 0.3 Baso # (Auto) 0.1 Abs Immat Gran (auto) 0.10 H Absolute Neuts (auto) 7.7 H Absolute Nucleated RBC 0.000 Nucleated RBC % 0.0 Sodium 137 Potassium 3.5 Chloride 103 Carbon Dioxide 29 Anion Gap 5 BUN 11 Creatinine 0.86 Estim Creat Clear Calc 65 Estimated GFR > 60 Glucose 119 H Calcium 8.6 Total Bilirubin 0.4 AST 24 ALT 15 Alkaline Phosphatase 90 Total Protein 5.9 L Albumin 3.2 L Quality VTE Prophylaxis VTE prophylaxis: pharmacologic ordered
[2025-05-19] MEDS: ATORVASTATIN 40 MG TABLET PO (08:58)
[2025-05-19] MEDS: CIPROFLOXACIN 500 MG TAB PO ×2 (09:04→20:02)
[2025-05-19] MEDS: METOPROLOL SUCCINATE EXT REL 50 MG TABCR PO (09:04)
[2025-05-19] MEDS: buPROPion HCL XL (24 HR) 150 MG TABCR PO (09:04)
[2025-05-19] MEDS: ACETAMINOPHEN 325 MG TABLET 650 MG PO (09:04)
[2025-05-19] MEDS: TAMSULOSIN HCL 0.4 MG CAPSULE PO (09:04)
[2025-05-19] MEDS: OLANZapine ODT DISPERTAB 5 MG PO (09:04)
[2025-05-19] MEDS: DONEPEZIL HCL 10 MG TABLET PO (09:04)
[2025-05-19] MEDS: LACOSAMIDE (*CRX) 200 MG TABLET PO ×2 (09:04→20:02)
--- NOTE | 2025-05-19 11:36 | ECG_ITS ---
Test Date: 2025-05-19 11:47:35 Measurements Intervals [place]dyke Rate: 75 P: 0 MT: 0 QRS: 39 QRSD: 88 T: 70 QT: 399 QTc: 446 Interpretive Statements ATRIAL FIBRILLATION SIGNIFICANT BASELINE AFFECTING INTERPRETATION ABNORMAL RHYTHM ECG Compared to ECG 05/09/2025 10:14:28 Sinus tachycardia no longer present Left-axis deviation no longer present Incomplete right bundle-branch block no longer present Electronically Signed On 05-19-2025 12:27:02 CDT by Guru Freedman M.D.
[2025-05-19 11:47] LABS: Alveolar/Arterial O2 Gradient < 0.0 mmHg; Fractional Inspired Oxygen 28 %; HCO3 ABG 24.3 mEq/l (22.0-26.0); Oxygen Content ABG 14.5 %vol (16.0-22.0); Oxygen Saturation ABG 99.3 % (95.0-100.0); PCO2 ABG 31.2 mmHg (35.0-45.0); PO2 ABG 163.9 mmHg (80.0-100.0); PO2 FiO2 Ratio Arterial Blood 5.85 %
[2025-05-19 11:51] LABS: Liters per Minute 4.0 LPM; Modified Allen's Test Pass; Site Drawn LEFT RADIAL
[2025-05-19 12:06] LABS: Hematocrit 27.1 % (42.0-52.0); Hemoglobin 9.0 g/dL (14.0-18.0); Immature Granulocyte Percent A 1.1 % (0-0.5); Lymphocytes Absolute Auto 1.04 K/mm3 (0.9-3.2); Mean Corpuscular HGB Conc 33.2 g/dl (32-36); Mean Corpuscular Hemoglobin 31.3 pg (26-34); Mean Corpuscular Volume 94.1 fl (80-100); Nucleated Red Blood Cells Absolute Auto 0.000 K/mm3 (0.0-0.012); Nucleated Red Blood Cells Perc 0.0 % (0.0-0.2); Platelet Count Result 617 k/mm3 (150-375); Red Blood Count 2.88 M/mm3 (4.6-6.20); White Blood Count 9.0 K/mm3 (4.5-10.0)
--- NOTE | 2025-05-19 12:15 | PC.NURSE ---
This patient, Giancarlo Clark Jr., was received from TITA Friedman on 05/19/25 at 1215. Patient oriented to unit policies and routines
[2025-05-19 12:25] LABS: Anion Gap 8 mmol/L (4-12); Blood Urea Nitrogen 12 mg/dL (9-20); Calcium 9.1 mg/dL (8.4-10.2); Carbon Dioxide 28 mmol/L (22-30); Chloride 101 mmol/L (98-107); Estimated CRCL calculation 61 ml/min; Estimated Glomerular Filt Rate > 60; Glucose 144 mg/dL (65-110); Potassium 3.6 mmol/L (3.4-5.0); Sodium 137 mmol/L (137-145)
--- NOTE | 2025-05-19 12:28 | PM.EVENT ---
Event Note Event Note Event Note: Patient was a rapid response this AM due to episode of altered consciousness in the bathroom after standing up with therapy. Patient was moved to the bed, originally unresponsive, thready pulse, diaphoretic and shallow respirations. Patient became more responsive and started following commands. Patient denied lightheadedness or chest pain. No facial droop, speech clear, strength 5/5 in BUE and BLEs. Original BP low, repeat improved. EKG with rate-controlled Afib. Suspect orthostatic/vasovagal event. Less likely seizure or CVA. Obtaining CT head, EEG, CBC, BMP, trop, ABG, lactic acid. Ordered IV fluids and repeat orthostatic vital signs. Transfer to IMU for closer monitoring.
[2025-05-19] MEDS: FERROUS GLUCONATE 324 MG TABLET PO (12:32)
[2025-05-19 12:54] LABS: Troponin I < 0.012 ng/mL (0.000-0.034)
[2025-05-19] MEDS: LACTATED RINGERS 1,000 ML 100 ML IV CONT (13:24)
[2025-05-19 14:50] LABS: Troponin I < 0.012 ng/mL (0.000-0.034)
[2025-05-19] MEDS: QUEtiapine FUMARATE 12.5 MG TABLET PO (16:55)
--- NOTE | 2025-05-19 17:33 | P.CONONC_ITS ---
Assessment and Plan Assessment and plan (1) Thrombocytosis: Code(s): D75.839 - Thrombocytosis, unspecified Status: Acute Assessment and Plan: Patient with acute thrombocytosis started on 05/15/25. This is likely reactive thrombocytosis in the setting of infection (UTI/prostatitis). Patient also had hematuria and Iron panel is indicative of Iron deficiency. Patient is on oral iron (Ferrous gluconate) but may not be sufficient to replete. I have ordered repeat Iron studies with ferritin and soluble transferrin receptor to assess for true iron deficiency in the setting of inflammation. he might need IV Iron if soluble transferrin receptor is high. Infectious reactive thrombocytosis usually 3-4 weeks post infection and see platelets back to baseline. No additional work up other than what ordered. Will continue to follow. HPI Data of Consult Date/Time: 05/19/25 17:33 Requesting Physician: Kofi Carmona MD Primary Care Provider: Zia Francisco MD Consult Narrative Narrative: Giancarlo Clark Jr. is a 69 year old male with progressive thrombocytosis. Mr. Clark had multiple hospitalizations in 04/2025 for altered mental status. He was hospitalized 04/22/25-04/25/25, 04/25/25-04/29/25. He was diagnosed with possible seizure disorder during 04/25/25 admission and was started on anti-seizure therapy initially with Keppra and then switched to Lacosamide. Patient was again brought by to ER on 05/09/25 for Altered Mental Status and was found to have Afib with RVR. He was found to be signs/sx of sepsis. UA was indicative of infection. Patient was started on IV abx and switched to oral ciprofloxacin. He is thought to have UTI and prostatitis by urology. Blood cultures from 05/09/25 has been NGTD. Urine culture is pending. Patient is noted to have progressive thrombocytosis since 05/09/25. Platelets were 317 on 05/09/25, 380 on 05/15/25, 514 on 05/18/25 and 617K on 05/19/25. Patient also has anemia. He had leukocytosis on admission which has resolved. Hematology is consulted for progressive thrombocytosis. Review of Systems 2 Review of Systems: Patient is not very responsive to examiner's questions. States that he feels OK. Denies chest pain, dyspnea. No cough. No dyspnea on exertion. No abdominal pain, n/v/d. No hematochezia or melena. no hematuria in the meyer bag. [facility] Past Medical History Medical History Atrial fibrillation Seizure disorder Hyperlipidemia Acute cerebrovascular accident Encounter for screening for cardiovascular disorders Hyperglycemia Hypertension Surgical History Surgical History History of bilateral knee replacement History of orthopedic surgery Right upper extremity reconstruction Family History Family History Mother Family history of diabetes mellitus in first degree relative Sibling Carcinoma of colon Uterine cancer Social History Social History Smoking packs per day: 0.5 Smoking cigarettes per day: 10.0 Years smoked: 15 Smoking pack-years: 7.50 Smoking status: Former smoker Second hand tobacco smoke exposure: Yes Alcohol intake: former Substance use: current Substance use type: marijuana Other substance usage details: 3x weekly Last use: today Do You Feel Safe in your Home?: Yes Lack of Transportation: No Lack of Food: Never True Current Housing: I Have Housing Concerned About Future Housing: No Difficulty Paying Gas/Electric Bills: No Difficulty Paying for Meds: No Currently Unemployed: No Education: High School Diploma/GED Difficulty w/ Childcare or Family Care: No Living arrangements: with family Spiritual care concerns: No Meds Home Medications and Allergies Home Medications ?Medication ?Instructions ?Recorded ?Confirmed ?Type metoprolol succinate 50 mg 50 mg PO DAILY #90 tabs 07/0905/09/25 Rx tablet,extended release 24 hr acetaminophen 500 mg tablet 1,000 mg (2 x 500 mg) PO Q 6H PRN 12/28/24 05/09/25 Rx (Tylenol Extra Strength) pain #50 tabs aspirin 81 mg tablet,delayed 81 mg PO QAM 30 days #30 tabs 04/25/25 05/09/25 Rx release atorvastatin 40 mg tablet 40 mg PO DAILY 30 days #30 t abs 04/25/25 05/09/25 Rx clopidogrel 75 mg tablet 75 mg PO QAM 30 days #30 tab s 04/25/25 05/09/25 Rx apixaban 5 mg tablet (Eliquis) 5 mg PO Q12HR #60 tabs 04/29/25 05/09/25 Rx lisinopril 20 mg tablet 40 mg (2 x 20 mg) PO QAM #30 tabs 04/29/25 05/09/25 Rx bupropion HCl 150 mg 24 hr tablet, 150 mg PO DAILY #90 tabs 05/03/25 05/09/25 Rx extended release (Wellbutrin XL) donepezil 10 mg tablet (Aricept) 10 mg PO DAILY #90 ta bs 05/03/25 05/09/25 Rx lacosamide 100 mg tablet 200 mg PO Q12H 05/09/2504/16 History Allergies Allergy/AdvReac Type Severity Reaction Status Date / Time Penicillins Allergy Unknown Anaphylaxis Verified 05/12/25 08:11 Vital Signs Vital Signs - 24 hr 05/18/25 20:00 05/18/25 20:06 05/19/25 09:04 Temperature 36.7 C Pulse Rate 107 H 99 Respiratory Rate 17 Blood Pressure 146/63 H Pulse Oximetry 90 Oxygen Delivery Room Air Oxygen Flow Rate 05/19/25 09:05 05/19/25 11:29 05/19/25 12:00 Temperature Pulse Rate 67 Respiratory Rate 6 L Blood Pressure 84/63 L Pulse Oximetry 100 Oxygen Delivery Room Air Bag Valve Mask Room Air Oxygen Flow Rate 15 05/19/25 12:00 05/19/25 12:46 05/19/25 12:46 Temperature 36.6 C Pulse Rate 93 Respiratory Rate 20 Blood Pressure 117/64 149/43 H 103/62 Pulse Oximetry 93 Oxygen Delivery Oxygen Flow Rate 05/19/25 16:00 05/19/25 16:00 05/19/25 16:30 Temperature 36.8 C Pulse Rate 85 83 Respiratory Rate 20 Blood Pressure 128/74 Pulse Oximetry 100 Oxygen Delivery Nasal Cannula Oxygen Flow Rate 4 Exam 2 Narrative: General: ill-appearing, no acute distress Eyes: EOMI ENT: neck supple Cardiovascular: Regular rate and rhythm Respiratory: CTAB Gastrointestinal: Soft, non tender Genitourinary: Meyer catheter draining clear urine Musculoskeletal: No edema Skin: warm, dry Neuro: No focal deficits Psych: Mood appropriate Results Labs 05/19/25 11:59 05/19/25 11:59 Labs: Short CBC 05/19/25 05/19/25 Range/Units 04:03 11:59 WBC 9.9 9.0 (4.5-10.0) K/mm3 Hgb 8.5 L 9.0 L (14.0-18.0) g/dL Hct 26.6 L 27.1 L (42.0-52.0) % Plt Count 573 H 617 H (150-375) k/mm3 BMP 05/19/25 05/19/25 04:03 11:59 Sodium 137 137 Potassium 3.5 3.6 Chloride 103 101 Carbon Dioxide 29 28 BUN 11 12 Creatinine 0.86 0.93 Glucose 119 H 144 H Calcium 8.6 9.1 Cardiac Enzymes 05/19/25 05/19/25 Range/Units 11:59 14:09 Troponin I < 0.012 < 0.012 (0.000-0.034) ng/mL Liver Function 05/19/25 Range/Units 04:03 Total Bilirubin 0.4 (0.2-1.3) mg/dL AST 24 (17-59) U/L ALT 15 (6-50) U/L Alkaline Phosphatase 90 (38-126) U/L Albumin 3.2 L (3.5-5.1) g/dL
--- NOTE | 2025-05-19 18:04 | WPDNEUROPN ---
Progress Note: A&P Assessment and Plan (1) Unresponsive episode: Code(s): R40.4 - Transient alteration of awareness Status: Acute Assessment and Plan: the spell that occurred today was the patient standing in the bathroom appears to most likely a vasovagal attack or syncopal episode. I would suggest to continue the lacosamide as before to observe him for any cardiac arrhythmias. (2) Seizure disorder: Code(s): G40.909 - Epilepsy, unspecified, not intractable, without status epilepticus Status: Chronic (3) Multi-infarct dementia: Code(s): F01.50 - Vascular dementia, unspecified severity, without behavioral disturbance, psychotic disturbance, mood disturbance, and anxiety Status: Acute (4) History of CVA (cerebrovascular accident): Code(s): Z86.73 - Personal history of transient ischemic attack (TIA), and cerebral infarction without residual deficits Status: Chronic (5) Agitation: Code(s): R45.1 - Restlessness and agitation Status: Acute (6) Atrial fibrillation: Qualifiers: Atrial fibrillation type: unspecified chronic Qualified Code(s): I48.20 - Chronic atrial fibrillation, unspecified Code(s): I48.91 - Unspecified atrial fibrillation Status: Chronic (7) Anemia: Qualifiers: Anemia type: unspecified type Qualified Code(s): D64.9 - Anemia, unspecified Code(s): D64.9 - Anemia, unspecified Status: Acute Plan There was some concern regarding extrapyramidal side effects from Zyprexa although it was very effective in controlling his behavior since prior to that he was very combative. This has now been changed over to a quetiapine. The patient has been seen by psychiatrist and I advised the nurse practitioner to consult psychiatrist if necessary. Subjective Date/time seen: 05/19/25 18:04 Interval history: The patient is 69 years old history of seizure disorder, recent stroke, anemia, diabetes mellitus, prostatitis, atrial fibrillation has had a spell while he was standing in the bathroom very passed out. The hospitalist described to me that the patient appeared pale and lipid. After some time he turned back to normal. There was also some concern regarding side effects from Zyprexa which was prescribed by psychiatrist for aggressive behavior. Previously he was on Keppra which was changed over to lacosamide for the same reason. He has not had any further seizures. Patient also has memory problems. He is currently on lacosamide 200 mg twice a day. Review of Systems Review of Systems: All systems reviewed & are unremarkable except as noted in HPI and below Exam Narrative: Fully conscious alert and oriented to self. A patient appears to be demented. He seems to repetitious movement of the right leg but I did not find any cogwheeling or any tremor or dyskinesia. Is moving both upper and lower limbs. Reflexes did not show any significant asymmetry. Objective Data Vital Signs Vital Signs: Vital Signs - 24 hr 05/18/25 20:00 05/18/25 20:06 05/19/25 09:04 Temperature 98.0 F Pulse Rate 107 H 99 Respiratory Rate 17 Blood Pressure 146/63 H Pulse Oximetry 90 Oxygen Delivery Room Air Oxygen Flow Rate 05/19/25 09:05 05/19/25 11:29 05/19/25 12:00 Temperature Pulse Rate 67 Respiratory Rate 6 L Blood Pressure 84/63 L Pulse Oximetry 100 Oxygen Delivery Room Air Bag Valve Mask Room Air Oxygen Flow Rate 15 05/19/25 12:00 05/19/25 12:46 05/19/25 12:46 Temperature 98 F Pulse Rate 93 Respiratory Rate 20 Blood Pressure 117/64 149/43 H 103/62 Pulse Oximetry 93 Oxygen Delivery Oxygen Flow Rate 05/19/25 16:00 05/19/25 16:00 05/19/25 16:30 Temperature 98.3 F Pulse Rate 85 83 Respiratory Rate 20 Blood Pressure 128/74 Pulse Oximetry 100 Oxygen Delivery Nasal Cannula Oxygen Flow Rate 4 Intake/Output Intake/Output: Intake & Output 05/16/25 05/17/25 05/18/25 05/19/25 23:59 23:59 23:59 23:59 Intake Total 429 530 5162 830 Output Total 1350 950 550 800 Balance -1110 -260 660 30 Meds/Results Medications: Active Medications Generic Name Dose Route Start Last Admin Trade Name Freq PRN Reason Stop Dose Admin Acetaminophen 650 mg 05/09/25 13:23 05/19/25 09:04 Acetaminophen 325 Mg Tablet PO 650 mg Q6H PRN Administration Pain Rated 1-3 Atorvastatin Calcium 40 mg 05/10/25 09:00 05/19/25 08:58 Atorvastatin 40 Mg Tablet PO 40 mg DAILY JUSTINA Administration Bupropion HCl 150 mg 05/10/25 09:00 05/19/25 09:04 Bupropion Hcl Xl (24 Hr) 150 Mg Tabcr PO 150 mg DAILY JUSTINA Administration Ciprofloxacin 500 mg 05/13/25 21:00 05/19/25 09:04 Ciprofloxacin 500 Mg Tab PO 05/27/25 20:59 500 mg Q12HR JUSTINA Administration Donepezil HCl 10 mg 05/10/25 09:00 05/19/25 09:04 Donepezil Hcl 10 Mg Tablet PO 10 mg DAILY JUSTINA Administration Fentanyl Citrate 25 mcg 05/11/25 12:01 Fentanyl Citrate Inj (*Crx) 100 Mcg/2 Ml Vial IV PUSH Q2M PRN Pain Ferrous Gluconate 324 mg 05/18/25 12:00 05/19/25 12:32 Ferrous Gluconate 324 Mg Tablet PO 324 mg DAILY@1200 JUSTINA Administration Hydralazine HCl 10 mg 05/13/25 05:42 05/13/25 05:59 Hydralazine Hcl 20 Mg/Ml Vial IV PUSH 10 mg Q4H PRN Administration SYSTOLIC BP >160 Lactated Ringer's 1,000 mls @ 100 mls/hr 05/19/25 12:20 05/19/25 13:24 Lr - Lactated Ringers Iv IV CONT 05/19/25 22:19 100 mls/hr .Q10H JUSTINA Administration Lacosamide 200 mg 05/09/25 22:35 05/19/25 09:04 Lacosamide (*Crx) 200 Mg Tablet PO 200 mg Q12HR JUSTINA Administration Lisinopril 40 mg 05/10/25 09:00 05/19/25 08:58 Lisinopril 20 Mg Tablet PO 40 mg QAM JUSTINA Administration Metoprolol Succinate 50 mg 05/10/25 09:00 05/19/25 09:04 Metoprolol Succinate Ext Rel 50 Mg Tabcr PO 50 mg DAILY JUSTINA Administration Miscellaneous Information 1 each 05/19/25 00:01 Lacosamide Needs To Be Renewed Or It Will Automatically Discontinue. XX 06/18/25 00:00 CLARIFY JUSTINA Ondansetron HCl 4 mg 05/09/25 13:24 Ondansetron Hcl Odt 4 Mg Tablet PO Q4H PRN Nausea And Vomiting Ondansetron HCl 4 mg 05/11/25 12:01 Ondansetron Inj 4 Mg/2 Ml Vial IV PUSH ONCE PRN Nausea Quetiapine Fumarate 25 mg 05/19/25 21:00 Quetiapine Fumarate 25 Mg Tablet PO [facility] Quetiapine Fumarate 12.5 mg 05/19/25 15:21 05/19/25 16:55 Quetiapine Fumarate 12.5 Mg Tablet PO 12.5 mg Q12HR PRN Administration agitation Tamsulosin HCl 0.4 mg 05/20/25 21:00 Tamsulosin Hcl 0.4 Mg Capsule PO [facility] Radiology Results: ITS Impressions Chest/Abdomen/Pelvis CT 05/09/25 12:34 IMPRESSION: 1. Prostatomegaly with surrounding from trace stranding also extending around the bilateral seminal vesicles which raises concern for prostatitis. 2. No acute cardiopulmonary disease or other acute intra-abdominal/pelvic process. Chest X-Ray 05/19/25 11:58 IMPRESSION: No acute process. Head CT 05/19/25 12:13 IMPRESSION: 1. No significant interval change. Bilateral lacunar infarcts, as detailed above. 2. Other chronic findings including parenchymal atrophy and chronic small vessel ischemic changes. Labs Labs: Laboratory Results - last 24 hr 05/19/25 05/19/25 05/19/25 04:03 11:35 11:40 WBC 9.9 RBC 2.79 L Hgb 8.5 L Hct 26.6 L MCV 95.3 MCH 30.5 MCHC 32.0 RDW 14.9 H Plt Count 573 H MPV 8.6 Immature Gran % (Auto) 1.0 H Neut % (Auto) 78.2 H Lymph % (Auto) 10.8 L [place] % (Auto) 6.7 Eos % (Auto) 2.7 Baso % (Auto) 0.6 Lymph # (Auto) 1.07 [place] # (Auto) 0.7 H Eos # (Auto) 0.3 Baso # (Auto) 0.1 Abs Immat Gran (auto) 0.10 H Absolute Neuts (auto) 7.7 H Absolute Nucleated RBC 0.000 Nucleated RBC % 0.0 Puncture Site Left radial ABG pH 7.510 H* ABG pCO2 31.2 L ABG pO2 163.9 H ABG PO2/FiO2 Ratio 5.85 ABG HCO3 24.3 ABG O2 Saturation 99.3 ABG O2 Content 14.5 L ABG Base Excess 1.7 A-a Gradient < 0.0 Oxyhemoglobin 98.9 Total Hemoglobin 10.2 L O2 Delivery Device Nasal cannula O2 Liters/Min 4.0 FiO2 28 Sodium 137 Potassium 3.5 Chloride 103 Carbon Dioxide 29 Anion Gap 5 BUN 11 Creatinine 0.86 Estim Creat Clear Calc 65 Estimated GFR > 60 Glucose 119 H POC Capillary Glucose 135 H Lactic Acid Calcium 8.6 Total Bilirubin 0.4 AST 24 ALT 15 Alkaline Phosphatase 90 Troponin I Total Protein 5.9 L Albumin 3.2 L 05/19/25 05/19/25 05/19/25 11:59 14:09 14:14 WBC 9.0 RBC 2.88 L Hgb 9.0 L Hct 27.1 L MCV 94.1 MCH 31.3 MCHC 33.2 RDW 15.1 H Plt Count 617 H MPV 8.3 Immature Gran % (Auto) 1.1 H Neut % (Auto) 79.7 H Lymph % (Auto) 11.6 L [place] % (Auto) 5.4 Eos % (Auto) 1.4 Baso % (Auto) 0.8 Lymph # (Auto) 1.04 [place] # (Auto) 0.5 Eos # (Auto) 0.1 Baso # (Auto) 0.1 Abs Immat Gran (auto) 0.10 H Absolute Neuts (auto) 7.2 H Absolute Nucleated RBC 0.000 Nucleated RBC % 0.0 Puncture Site ABG pH ABG pCO2 ABG pO2 ABG PO2/FiO2 Ratio ABG HCO3 ABG O2 Saturation ABG O2 Content ABG Base Excess A-a Gradient Oxyhemoglobin Total Hemoglobin O2 Delivery Device O2 Liters/Min FiO2 Sodium 137 Potassium 3.6 Chloride 101 Carbon Dioxide 28 Anion Gap 8 BUN 12 Creatinine 0.93 Estim Creat Clear Calc 61 Estimated GFR > 60 Glucose 144 H POC Capillary Glucose Lactic Acid 2.3 H 1.7 Calcium 9.1 Total Bilirubin AST ALT Alkaline Phosphatase Troponin I < 0.012 < 0.012 Total Protein Albumin
[2025-05-19 18:33] LABS: Iron 46 ug/dL (49-181)
[2025-05-19 18:42] LABS: Percent Iron Saturation 18 % (20-50)
[2025-05-19 19:09] LABS: Ferritin 77.90 ng/mL (11.1-264)
--- NOTE | 2025-05-19 20:20 | PC.NURSE ---
pt trying to get out of bed unable to redirect code purple calledpt placed in restraints
[2025-05-19] MEDS: diazePAM INJ (*CRX) 10 MG/2 ML SYRINGE 2.5 MG IV PUSH (20:40)
[2025-05-20] VITALS: PULSE 102; PULSE 106; RESP 18; O2SAT 100
[2025-05-20 00:50] VITALS: PULSE 81; RESP 18; O2SAT 98
[2025-05-20 04:00] VITALS: BP 132/71; PULSE 77; PULSE 96; RESP 14; TEMP 36.7; O2SAT 100
[2025-05-20 04:21] LABS: Hematocrit 26.8 % (42.0-52.0); Hemoglobin 8.7 g/dL (14.0-18.0); Immature Granulocyte Percent A 0.7 % (0-0.5); Lymphocytes Absolute Auto 1.47 K/mm3 (0.9-3.2); Mean Corpuscular HGB Conc 32.5 g/dl (32-36); Mean Corpuscular Hemoglobin 30.7 pg (26-34); Mean Corpuscular Volume 94.7 fl (80-100); Nucleated Red Blood Cells Absolute Auto 0.000 K/mm3 (0.0-0.012); Nucleated Red Blood Cells Perc 0.0 % (0.0-0.2); Platelet Count Result 387 k/mm3 (150-375); Red Blood Count 2.83 M/mm3 (4.6-6.20); White Blood Count 11.3 K/mm3 (4.5-10.0)
[2025-05-20 04:35] LABS: Alanine Aminotransferase 15 U/L (6-50); Albumin Level 3.4 g/dL (3.5-5.1); Alkaline Phosphatase 84 U/L (38-126); Anion Gap 6 mmol/L (4-12); Aspartate Amino Transferase 26 U/L (17-59); Bilirubin,Total 0.4 mg/dL (0.2-1.3); Blood Urea Nitrogen 11 mg/dL (9-20); Calcium 8.9 mg/dL (8.4-10.2); Carbon Dioxide 26 mmol/L (22-30); Chloride 105 mmol/L (98-107); Estimated CRCL calculation 63 ml/min; Estimated Glomerular Filt Rate > 60; Glucose 123 mg/dL (65-110); Potassium 3.6 mmol/L (3.4-5.0); Sodium 137 mmol/L (137-145); Total Protein 6.1 g/dL (6.3-8.2)
--- NOTE | 2025-05-20 06:56 | P.PSYCH_ITS ---
Assessment and Plan Assessment and plan (1) AMS (altered mental status): Code(s): R41.82 - Altered mental status, unspecified Status: Acute (2) Agitation: Code(s): R45.1 - Restlessness and agitation Status: Acute Plan He continues to present with agitation, which appears to worsen in evening and throughout the night. Quetiapine initiated yesterday for possible TD, no symptoms noted on exam today, continue to monitor as symptoms can fluctuate throughout the day. Did not appear he was benefiting from olanzapine greatly, risk of TD does not outweigh benefit of medication. Continue quetiapine, may consider increase in dose to 50mg qHS with 25mg BID PRN schedule if he continues to suffer with agitation. Continue sitter at bedside, delirium precautions, supportive management. HPI Data of Consult Date/Time: 05/20/25 06:56 Requesting Physician: Kofi Carmona MD Primary Care Provider: Zia Francisco MD Consult Narrative Narrative: Giancarlo Clark Jr. is a 69 year old male currently admitted with altered mental status, psychiatry has been re-consulted for re-evaluation. He was last seen by psychiatry on 04/28, which olanzapine was started at this time. Recently, staff and family () have noted possible EPS versus TD (facial twitch, tremor). Olanzapine was subsequently discontinued and quetiapine was started yesterday evening for agitation, delirium management. Upon exam today, he was rather disoriented and drowsy, oriented to self only. He is not agitated upon exam, however per nursing reports he was agitated on and off throughout the night. Required code purple to manage agitation and received diphenhydramine/Valium PRN which seems to moderately help his agitation. He relieved one PRN dose of quetiapine yesterday evening, which generally did not improve his agitation per nursing reports. Review of Systems 2 Psychiatric: Psychiatric: Reports confusion PMFSH Past Medical History Medical History (Updated 05/19/25 @ 18:08 by Steve Dubose MD) Atrial fibrillation Seizure disorder Hyperlipidemia Acute cerebrovascular accident Encounter for screening for cardiovascular disorders Hyperglycemia Hypertension Surgical History Surgical History History of bilateral knee replacement History of orthopedic surgery Right upper extremity reconstruction Family History Family History Mother Family history of diabetes mellitus in first degree relative Sibling Carcinoma of colon Uterine cancer Social History Social History Smoking packs per day: 0.5 Smoking cigarettes per day: 10.0 Years smoked: 15 Smoking pack-years: 7.50 Smoking status: Former smoker Second hand tobacco smoke exposure: Yes Alcohol intake: former Substance use: current Substance use type: marijuana Other substance usage details: 3x weekly Last use: today Do You Feel Safe in your Home?: Yes Lack of Transportation: No Lack of Food: Never True Current Housing: I Have Housing Concerned About Future Housing: No Difficulty Paying Gas/Electric Bills: No Difficulty Paying for Meds: No Currently Unemployed: No Education: High School Diploma/GED Difficulty w/ Childcare or Family Care: No Living arrangements: with family Spiritual care concerns: No Meds Home Medications and Allergies Home Medications ?Medication ?Instructions ?Recorded ?Confirmed ?Type metoprolol succinate 50 mg 50 mg PO DAILY #90 tabs 07/0905/09/25 Rx tablet,extended release 24 hr acetaminophen 500 mg tablet 1,000 mg (2 x 500 mg) PO Q 6H PRN 12/28/24 05/09/25 Rx (Tylenol Extra Strength) pain #50 tabs aspirin 81 mg tablet,delayed 81 mg PO QAM 30 days #30 tabs 04/25/25 05/09/25 Rx release atorvastatin 40 mg tablet 40 mg PO DAILY 30 days #30 t abs 04/25/25 05/09/25 Rx clopidogrel 75 mg tablet 75 mg PO QAM 30 days #30 tab s 04/25/25 05/09/25 Rx apixaban 5 mg tablet (Eliquis) 5 mg PO Q12HR #60 tabs 04/29/25 05/09/25 Rx lisinopril 20 mg tablet 40 mg (2 x 20 mg) PO QAM #30 tabs 04/29/25 05/09/25 Rx bupropion HCl 150 mg 24 hr tablet, 150 mg PO DAILY #90 tabs 05/03/25 05/09/25 Rx extended release (Wellbutrin XL) donepezil 10 mg tablet (Aricept) 10 mg PO DAILY #90 ta bs 05/03/25 05/09/25 Rx lacosamide 100 mg tablet 200 mg PO Q12H 05/09/25 08/02/06 History Allergies Allergy/AdvReac Type Severity Reaction Status Date / Time Penicillins Allergy Unknown Anaphylaxis Verified 05/12/25 08:11 Vital Signs Vital Signs - 24 hr 05/19/25 09:04 05/19/25 09:05 05/19/25 11:29 Temperature Pulse Rate 99 67 Respiratory Rate 6 L Blood Pressure 84/63 L Pulse Oximetry 100 Oxygen Delivery Room Air Bag Valve Mask Oxygen Flow Rate 15 Fraction of Inspired Oxygen 05/19/25 12:00 05/19/25 12:00 05/19/25 12:46 Temperature 98 F Pulse Rate 93 Respiratory Rate 20 Blood Pressure 117/64 149/43 H Pulse Oximetry 93 Oxygen Delivery Room Air Oxygen Flow Rate Fraction of Inspired Oxygen 05/19/25 12:46 05/19/25 16:00 05/19/25 16:00 Temperature Pulse Rate 85 Respiratory Rate Blood Pressure 103/62 Pulse Oximetry Oxygen Delivery Nasal Cannula Oxygen Flow Rate 4 Fraction of Inspired Oxygen 05/19/25 16:30 05/19/25 20:00 05/19/25 20:00 Temperature 98.3 F Pulse Rate 83 83 115 H Respiratory Rate 20 20 Blood Pressure 128/74 Pulse Oximetry 100 100 Oxygen Delivery Room Air Oxygen Flow Rate Fraction of Inspired Oxygen 21 05/19/25 20:00 05/19/25 21:05 05/19/25 21:20 Temperature 97.8 F Pulse Rate 94 96 92 Respiratory Rate 18 18 18 Blood Pressure 135/73 Pulse Oximetry 100 95 99 Oxygen Delivery Oxygen Flow Rate Fraction of Inspired Oxygen 05/19/25 21:50 05/19/25 22:00 05/19/25 22:05 Temperature 98.1 F Pulse Rate 105 H 105 H 101 H Respiratory Rate 18 20 18 Blood Pressure 148/91 H 148/91 H Pulse Oximetry 100 96 100 Oxygen Delivery Oxygen Flow Rate Fraction of Inspired Oxygen 05/19/25 22:30 05/20/25 00:00 05/20/25 00:00 Temperature Pulse Rate 106 H 102 H 106 H Respiratory Rate 18 Blood Pressure 112/7 L Pulse Oximetry 100 Oxygen Delivery Room Air Oxygen Flow Rate Fraction of Inspired Oxygen 21 05/20/25 00:50 05/20/25 04:00 05/20/25 04:00 Temperature 98.1 F Pulse Rate 81 96 77 Respiratory Rate 18 14 14 Blood Pressure 132/71 Pulse Oximetry 98 100 100 Oxygen Delivery Room Air Oxygen Flow Rate Fraction of Inspired Oxygen 21 05/20/25 04:00 Temperature Pulse Rate 96 Respiratory Rate Blood Pressure Pulse Oximetry Oxygen Delivery Oxygen Flow Rate Fraction of Inspired Oxygen Exam 2 Psych: Mental Status: other (altered ) Speech and movement: Restless speech present Affect: Blunted affect present Thought process: Illogical thought process present Insight: Poor insight present (Psych) Judgement: Poor judgement present (Psych) Results Labs 05/20/25 04:11 05/20/25 04:11 Labs: Short CBC 05/19/25 05/20/25 Range/Units 11:59 04:11 WBC 9.0 11.3 H (4.5-10.0) K/mm3 Hgb 9.0 L 8.7 L (14.0-18.0) g/dL Hct 27.1 L 26.8 L (42.0-52.0) % Plt Count 617 H 387 H (150-375) k/mm3 BMP 05/19/25 05/20/25 11:59 04:11 Sodium 137 137 Potassium 3.6 3.6 Chloride 101 105 Carbon Dioxide 28 26 BUN 12 11 Creatinine 0.93 0.90 Glucose 144 H 123 H Calcium 9.1 8.9 Cardiac Enzymes 05/19/25 05/19/25 Range/Units 11:59 14:09 Troponin I < 0.012 < 0.012 (0.000-0.034) ng/mL Liver Function 05/20/25 Range/Units 04:11 Total Bilirubin 0.4 (0.2-1.3) mg/dL AST 26 (17-59) U/L ALT 15 (6-50) U/L Alkaline Phosphatase 84 (38-126) U/L Albumin 3.4 L (3.5-5.1) g/dL
[2025-05-20 08:00] VITALS: BP 110/80; PULSE 102; PULSE 91; RESP 20; O2SAT 99
--- NOTE | 2025-05-20 08:19 | P.PNIM_ITS ---
Progress Note: A&P Assessment and Plan (1) AMS (altered mental status): Qualifiers: Altered mental status type: delirium Qualified Code(s): R41.0 - Disorientation, unspecified Code(s): R41.82 - Altered mental status, unspecified Status: Acute Assessment and Plan: -Head CT, 05/09 with no acute process, old lacunar infarcts in the R basal ganglia and coronal radiata of the bilateral frontal and right parietal lobes. Age-related changes. -recent dx of CVA on 04/23. MRI showed a small acute infarct at the genu of the right corpus callosum and several old lacunar infarcts at the right basal ganglia and right frontal and parietal lobe dobbins radiata. -developed agitation during last admission, thought to be secondary to CVA vs. side effect of Keppra so was transitioned to Lacosamide -UDS + for cannabis 04/22 -UA consistent with UTI, imaging suggest prostatitis -suspect worsening mental status secondary to acute UTI/prostatitis. Management as below. -Started on Aricept 10mg - patient had episode of altered consciousness with [employer]N 05/19 (see note), most likely orthostatic event/vasovagal, less likely seizure or CVA, neuro in agreement. -initially started on Zyprexa, concern for EPS noted 05/19, psych reconsulted and recommended switching to Seroquel. Patient required Valium and Benadryl overn ight 05/19. Uptitrated Seroquel. (2) Sepsis: Code(s): A41.9 - Sepsis, unspecified organism Status: Ruled-out Assessment and Plan: -sepsis present on admission as evidenced by tachycardia, tachypnea, leukocytosis -source: UTI with possible prostatitis -management of UTI as below - Urine culture was sent however apparently never received by [facility] -WBC down from 27.9 on admission, now normalized -Blood cultures negative for growth - final (3) UTI (urinary tract infection): Qualifiers: Hematuria presence: without hematuria Urinary tract infection type: acute cystitis Qualified Code(s): N30.00 - Acute cystitis without hematuria Code(s): N39.0 - Urinary tract infection, site not specified Status: Acute Assessment and Plan: -UA: Cloudy, 1+ protein, 1+ ketones, 3+ blood, 3+ leuk esterase, 21-50 RBC, greater than 100 WBC, WBC clumps present, no epithelial -concern for prostatitis per CT -UCx pending -no previous micro urine available for review - Afebrile. Otherwise nonseptic. Leukocytosis improved -Started on IV Ciprofloxacin - switched to oral on 05/13. Urology would like 2 more weeks of antibiotics, end date 05/27. (4) Prostatitis: Qualifiers: Prostatitis type: acute Qualified Code(s): N41.0 - Acute prostatitis Code(s): N41.9 - Inflammatory disease of prostate, unspecified Status: Acute Assessment and Plan: -CT showed indicators of prostatitis -Urine culture pending -urology consulted * Stat cystoscopy with clot evacuation and complex Viera catheter insertion * During operation, significant blood clot in obvious injury to the membranous urethra, [address] placed. -Started on Ciprofloxacin IV switched to Oral on 05/13 - urology following, recommended voiding trial today 05/20 (5) Anemia: Qualifiers: Anemia type: unspecified type Qualified Code(s): D64.9 - Anemia, unspecified Code(s): D64.9 - Anemia, unspecified Status: Acute Assessment and Plan: -Hgb 12.3 upon admission on 05/09. 15.7 at discharge on 04/29. -iron and iron saturation low - acute drop likely secondary to hematuria in setting of Viera trauma -Transfuse if <7 -Trend H&H -Of note, recently started on Eliquis and Plavix secondary to acute stroke earlier this month -05/20: Hgb 8.7 (6) History of CVA (cerebrovascular accident): Code(s): Z86.73 - Personal history of transient ischemic attack (TIA), and cerebral infarction without residual deficits Status: Chronic Assessment and Plan: -Brain MRI, 04/23 with small acute infarct at the genu of the right corpus callosum, several old lacunar infarcts, multiple small foci of susceptibility artifact scattered throughout the brain including the cerebral hemispheres, midbrain and cerebellum consistent with chronic microhemorrhage typically seen in the setting of hypertension but can also be seen with amyloid angiopathy. -worsening AMS likely secondary to UTI, however could be sequela of recent CVA. started on abx, monitor response. -discussed with Dr. Miguel falk to stop ASA, Plavix as patient was found to have Afib on last admission. Eliqus on hold due to Viera trauma and plan to hold until voiding trial completed to avoid recurrent bleeding. - Neurology reconsulted due to episode of altered consciousness 05/19, suspect vasovagal event (7) Seizure disorder: Code(s): G40.909 - Epilepsy, unspecified, not intractable, without status epilepticus Status: Chronic Assessment and Plan: -continue lacosamide (switched from Keppra due to agitation on last admit) - obtaining repeat EEG due to episode of altered consciousness (8) Atrial fibrillation: Qualifiers: Atrial fibrillation type: unspecified chronic Qualified Code(s): I48.20 - Chronic atrial fibrillation, unspecified Code(s): I48.91 - Unspecified atrial fibrillation Status: Chronic Assessment and Plan: -continue metoprolol. Eliquis on hold due to hematuria. (9) Hypertension: Qualifiers: Hypertension type: essential hypertension Qualified Code(s): I10 - Essential (primary) hypertension Code(s): I10 - Essential (primary) hypertension Status: Chronic Assessment and Plan: -chronic -continue home medications: Lisinopril, metoprolol -monitor (10) Thrombocytosis: Code(s): D75.839 - Thrombocytosis, unspecified Status: Acute Assessment and Plan: -Upon admission Plts 317 - trended up to 617 -Could be 2/2 underlying anemia, prostatitis, UTI -No splenomegaly on exam -consulted hematology, suspect reactive thrombocytosis, no further work-up necessary - improving - monitor CBC Plan DVT Prophylaxis: Anam Disposition: TBD Code Status: Full code Subjective Date/time seen: 05/20/25 08:19 Interval history: Patient seen and examined at bedside. Noted patient with increased agitation last night requiring restraints and medications. Patient now more pleasant, denies acute complaints. Attempting voiding trial today. Review of Systems Review of Systems: All systems reviewed & are unremarkable except as noted in HPI and below Exam Narrative: General: NAD, in soft restraints Eyes: EOMI ENT: neck supple Cardiovascular: Regular rate and rhythm Respiratory: Clear to auscultation, respirations even and unlabored on RA Gastrointestinal: Soft, non tender Genitourinary: no suprapubic tenderness, Viera catheter draining clear urine Musculoskeletal: No edema Skin: warm, dry Neuro: Drowsy, awakens easily. Psych: Mood appropriate Objective Data Vital Signs Vital Signs: Vital Signs - 24 hr 05/19/25 09:04 05/19/25 09:05 05/19/25 11:29 Temperature Pulse Rate 99 67 Respiratory Rate 6 L Blood Pressure 84/63 L Pulse Oximetry 100 Oxygen Delivery Room Air Bag Valve Mask Oxygen Flow Rate 15 Fraction of Inspired Oxygen 05/19/25 12:00 05/19/25 12:00 05/19/25 12:46 Temperature 98 F Pulse Rate 93 Respiratory Rate 20 Blood Pressure 117/64 149/43 H Pulse Oximetry 93 Oxygen Delivery Room Air Oxygen Flow Rate Fraction of Inspired Oxygen 05/19/25 12:46 05/19/25 16:00 05/19/25 16:00 Temperature Pulse Rate 85 Respiratory Rate Blood Pressure 103/62 Pulse Oximetry Oxygen Delivery Nasal Cannula Oxygen Flow Rate 4 Fraction of Inspired Oxygen 05/19/25 16:30 05/19/25 20:00 05/19/25 20:00 Temperature 98.3 F Pulse Rate 83 83 115 H Respiratory Rate 20 20 Blood Pressure 128/74 Pulse Oximetry 100 100 Oxygen Delivery Room Air Oxygen Flow Rate Fraction of Inspired Oxygen 21 05/19/25 20:00 05/19/25 21:05 05/19/25 21:20 Temperature 97.8 F Pulse Rate 94 96 92 Respiratory Rate 18 18 18 Blood Pressure 135/73 Pulse Oximetry 100 95 99 Oxygen Delivery Oxygen Flow Rate Fraction of Inspired Oxygen 05/19/25 21:50 05/19/25 22:00 05/19/25 22:05 Temperature 98.1 F Pulse Rate 105 H 105 H 101 H Respiratory Rate 18 20 18 Blood Pressure 148/91 H 148/91 H Pulse Oximetry 100 96 100 Oxygen Delivery Oxygen Flow Rate Fraction of Inspired Oxygen 05/19/25 22:30 05/20/25 00:00 05/20/25 00:00 Temperature Pulse Rate 106 H 102 H 106 H Respiratory Rate 18 Blood Pressure 112/7 L Pulse Oximetry 100 Oxygen Delivery Room Air Oxygen Flow Rate Fraction of Inspired Oxygen 05/20/25 00:50 05/20/25 04:00 05/20/25 04:00 Temperature 98.1 F Pulse Rate 81 96 77 Respiratory Rate 18 14 14 Blood Pressure 132/71 Pulse Oximetry 98 100 100 Oxygen Delivery Room Air Oxygen Flow Rate Fraction of Inspired Oxygen 05/20/25 04:00 Temperature Pulse Rate 96 Respiratory Rate Blood Pressure Pulse Oximetry Oxygen Delivery Oxygen Flow Rate Fraction of Inspired Oxygen Intake/Output Intake/Output: Intake & Output 05/17/25 05/18/25 05/19/25 05/20/25 23:59 23:59 23:59 23:59 Intake Total 690 1210 830 200 Output Total 950 550 800 900 Balance -260 660 30 -700 Meds/Results Medications: Active Medications Generic Name Dose Route Start Last Admin Trade Name Freq PRN Reason Stop Dose Admin Acetaminophen 650 mg 05/09/25 13:23 05/19/25 09:04 Acetaminophen 325 Mg Tablet PO 650 mg Q6H PRN Administration Pain Rated 1-3 Atorvastatin Calcium 40 mg 05/10/25 09:00 05/19/25 08:58 Atorvastatin 40 Mg Tablet PO 40 mg DAILY JUSTINA Administration Bupropion HCl 150 mg 05/10/25 09:00 05/19/25 09:04 Bupropion Hcl Xl (24 Hr) 150 Mg Tabcr PO 150 mg DAILY JUSTINA Administration Ciprofloxacin 500 mg 05/13/25 21:00 05/19/25 20:02 Ciprofloxacin 500 Mg Tab PO 05/27/25 20:59 500 mg Q12HR JUSTINA Administration Donepezil HCl 10 mg 05/10/25 09:00 05/19/25 09:04 Donepezil Hcl 10 Mg Tablet PO 10 mg DAILY JUSTINA Administration Fentanyl Citrate 25 mcg 05/11/25 12:01 Fentanyl Citrate Inj (*Crx) 100 Mcg/2 Ml Vial IV PUSH Q2M PRN Pain Ferrous Gluconate 324 mg 05/18/25 12:00 05/19/25 12:32 Ferrous Gluconate 324 Mg Tablet PO 324 mg DAILY@1200 JUSTINA Administration Hydralazine HCl 10 mg 05/13/25 05:42 05/13/25 05:59 Hydralazine Hcl 20 Mg/Ml Vial IV PUSH 10 mg Q4H PRN Administration SYSTOLIC BP >160 Lacosamide 200 mg 05/09/25 22:35 05/19/25 20:02 Lacosamide (*Crx) 200 Mg Tablet PO 200 mg Q12HR [facility] Administration Lisinopril 40 mg 05/10/25 09:00 05/19/25 08:58 Lisinopril 20 Mg Tablet PO 40 mg QAM JUSTINA Administration Metoprolol Succinate 50 mg 05/10/25 09:00 05/19/25 09:04 Metoprolol Succinate Ext Rel 50 Mg Tabcr PO 50 mg DAILY JUSTINA Administration Miscellaneous Information 1 each 05/19/25 00:01 Lacosamide Needs To Be Renewed Or It Will Automatically Discontinue. XX 06/18/25 00:00 CLARIFY JUSTINA Ondansetron HCl 4 mg 05/09/25 13:24 Ondansetron Hcl Odt 4 Mg Tablet PO Q4H PRN Nausea And Vomiting Ondansetron HCl 4 mg 05/11/25 12:01 Ondansetron Inj 4 Mg/2 Ml Vial IV PUSH ONCE PRN Nausea Quetiapine Fumarate 25 mg 05/19/25 21:00 05/19/25 20:03 Quetiapine Fumarate 25 Mg Tablet PO 25 mg HS JUSTINA Administration Quetiapine Fumarate 12.5 mg 05/19/25 15:21 05/19/25 16:55 Quetiapine Fumarate 12.5 Mg Tablet PO 12.5 mg Q12HR PRN Administration agitation Tamsulosin HCl 0.4 mg 05/20/25 21:00 Tamsulosin Hcl 0.4 Mg Capsule PO HS [facility] Radiology Results: ITS Impressions Chest/Abdomen/Pelvis CT 05/09/25 12:34 IMPRESSION: 1. Prostatomegaly with surrounding from trace stranding also extending around the bilateral seminal vesicles which raises concern for prostatitis. 2. No acute cardiopulmonary disease or other acute intra-abdominal/pelvic process. Chest X-Ray 05/19/25 11:58 IMPRESSION: No acute process. Head CT 05/19/25 12:13 IMPRESSION: 1. No significant interval change. Bilateral lacunar infarcts, as detailed above. 2. Other chronic findings including parenchymal atrophy and chronic small vessel ischemic changes. Labs Labs: Laboratory Results - last 24 hr 05/19/25 05/19/25 05/19/25 11:35 11:40 11:59 WBC 9.0 RBC 2.88 L Hgb 9.0 L Hct 27.1 L MCV 94.1 MCH 31.3 MCHC 33.2 RDW 15.1 H Plt Count 617 H MPV 8.3 Immature Gran % (Auto) 1.1 H Neut % (Auto) 79.7 H Lymph % (Auto) 11.6 L [place] % (Auto) 5.4 Eos % (Auto) 1.4 Baso % (Auto) 0.8 Lymph # (Auto) 1.04 [place] # (Auto) 0.5 Eos # (Auto) 0.1 Baso # (Auto) 0.1 Abs Immat Gran (auto) 0.10 H Absolute Neuts (auto) 7.2 H Absolute Nucleated RBC 0.000 Nucleated RBC % 0.0 Puncture Site Left radial ABG pH 7.510 H* ABG pCO2 31.2 L ABG pO2 163.9 H ABG PO2/FiO2 Ratio 5.85 ABG HCO3 24.3 ABG O2 Saturation 99.3 ABG O2 Content 14.5 L ABG Base Excess 1.7 A-a Gradient < 0.0 Oxyhemoglobin 98.9 Total Hemoglobin 10.2 L O2 Delivery Device Nasal cannula O2 Liters/Min 4.0 FiO2 28 Sodium 137 Potassium 3.6 Chloride 101 Carbon Dioxide 28 Anion Gap 8 BUN 12 Creatinine 0.93 Estim Creat Clear Calc 61 Estimated GFR > 60 Glucose 144 H POC Capillary Glucose 135 H Lactic Acid 2.3 H Calcium 9.1 Iron TIBC % Saturation Ferritin Total Bilirubin AST ALT Alkaline Phosphatase Troponin I < 0.012 Total Protein Albumin 05/19/25 05/19/25 05/20/25 14:09 14:14 04:11 WBC 11.3 H RBC 2.83 L Hgb 8.7 L Hct 26.8 L MCV 94.7 MCH 30.7 MCHC 32.5 RDW 15.0 H Plt Count 387 H MPV 9.2 Immature Gran % (Auto) 0.7 H Neut % (Auto) 78.3 H Lymph % (Auto) 13.0 L [place] % (Auto) 5.8 Eos % (Auto) 1.8 Baso % (Auto) 0.4 Lymph # (Auto) 1.47 [place] # (Auto) 0.7 H Eos # (Auto) 0.2 Baso # (Auto) 0.1 Abs Immat Gran (auto) 0.08 H Absolute Neuts (auto) 8.9 H Absolute Nucleated RBC 0.000 Nucleated RBC % 0.0 Puncture Site ABG pH ABG pCO2 ABG pO2 ABG PO2/FiO2 Ratio ABG HCO3 ABG O2 Saturation ABG O2 Content ABG Base Excess A-a Gradient Oxyhemoglobin Total Hemoglobin O2 Delivery Device O2 Liters/Min FiO2 Sodium 137 Potassium 3.6 Chloride 105 Carbon Dioxide 26 Anion Gap 6 BUN 11 Creatinine 0.90 Estim Creat Clear Calc 63 Estimated GFR > 60 Glucose 123 H POC Capillary Glucose Lactic Acid 1.7 Calcium 8.9 Iron 46 L TIBC 260 L % Saturation 18 L Ferritin 77.90 Total Bilirubin 0.4 AST 26 ALT 15 Alkaline Phosphatase 84 Troponin I < 0.012 Total Protein 6.1 L Albumin 3.4 L Quality VTE Prophylaxis VTE prophylaxis: pharmacologic ordered
[2025-05-20] MEDS: METOPROLOL SUCCINATE EXT REL 50 MG TABCR PO (09:44)
[2025-05-20] MEDS: ATORVASTATIN 40 MG TABLET PO (09:44)
[2025-05-20] MEDS: CIPROFLOXACIN 500 MG TAB PO ×2 (09:44→20:08)
[2025-05-20] MEDS: QUEtiapine FUMARATE 12.5 MG TABLET PO (09:44)
[2025-05-20] MEDS: LACOSAMIDE (*CRX) 200 MG TABLET PO ×2 (09:44→20:06)
[2025-05-20] MEDS: buPROPion HCL XL (24 HR) 150 MG TABCR PO (09:44)
[2025-05-20] MEDS: DONEPEZIL HCL 10 MG TABLET PO (09:45)
--- NOTE | 2025-05-20 10:39 | PC.NURSE ---
Expressed urge to urinate. Urinal given to patient while lying down and the patient was unable to urinate. This RN stood the patient up and still unable to urinate. The patient requested to sit down, but still unable to urinate. This RN bladder scanned the patient and noted 111mL from bladder scanner. TITA Ribera removed meyer catheter approximately 1 hour ago. This was communicated with the patient as he is noted to be forgetful/confused and that he may feel the urge and unable at this time. Discussed with patient to call for assistance should he feel the urge again and unable to use urinal on his own. Verbalizes understanding at this time, reinforcement as need related to confusion.
--- NOTE | 2025-05-20 11:41 | PC.NURSE ---
Assisted patient from the bed to the chair. Gait very unsteady and patient moves fast. Chair alarm on and functioning at this time. Call light within reach. Discussed with patient to call for assistance should he need to get up at this time. Verbalizes understanding but reinforcement necessary related confusion.
[2025-05-20 11:47] VITALS: BP 133/78; PULSE 93; RESP 14; TEMP 36.6; O2SAT 100
--- NOTE | 2025-05-20 16:38 | P.PNONC_ITS ---
Progress Note: A&P Assessment and Plan (1) Thrombocytosis: Code(s): D75.839 - Thrombocytosis, unspecified Status: Acute Assessment and Plan: Patient with acute thrombocytosis started on 05/15/25. This is likely reactive thrombocytosis in the setting of infection (UTI/prostatitis). Patient also had hematuria and Iron panel is indicative of Iron deficiency. Patient is on oral iron (Ferrous gluconate) but may not be sufficient to replete. A repeat Iron studies with ferritin shows iron saturations low and ferritin further decreased. He will benefit from few doses of IV Iron while inpatient. Infectious reactive thrombocytosis usually 3-4 weeks post infection and see platelets back to baseline. No additional work up other than what ordered. Platelet count is 387K and better today. Will continue to follow. Subjective Date/time seen: 05/20/25 16:38 Interval history: patient much more communicative today. Still not able to hold full coherent conversations. Review of Systems Review of Systems Patient's mentation is much better than past few days. States that he feels OK. No fevers, chills, or night sweats. Denies chest pain, cough or hemoptysis. Denies abdominal pain, n/v/d. Rest of ROS is negative Exam Narrative: General: ill-appearing, no acute distress Eyes: EOMI ENT: neck supple Cardiovascular: Regular rate and rhythm Respiratory: CTAB Gastrointestinal: Soft, non tender Genitourinary: Viera catheter draining clear urine Musculoskeletal: No edema Skin: warm, dry Neuro: No focal deficits Psych: Mood appropriate Objective Data Vital Signs Vital Signs: Vital Signs - 24 hr 05/19/25 20:00 05/19/25 20:00 05/19/25 20:00 Temperature 36.6 C Pulse Rate 83 115 H 94 Respiratory Rate 20 18 Blood Pressure 135/73 Pulse Oximetry 100 100 Oxygen Delivery Room Air Fraction of Inspired Oxygen 21 05/19/25 21:05 05/19/25 21:20 05/19/25 21:50 Temperature Pulse Rate 96 92 105 H Respiratory Rate 18 18 18 Blood Pressure 148/91 H Pulse Oximetry 95 99 100 Oxygen Delivery Fraction of Inspired Oxygen 05/19/25 22:00 05/19/25 22:05 05/19/25 22:30 Temperature 36.7 C Pulse Rate 105 H 101 H 106 H Respiratory Rate 20 18 Blood Pressure 148/91 H 112/7 L Pulse Oximetry 96 100 Oxygen Delivery Fraction of Inspired Oxygen 05/20/25 00:00 05/20/25 00:00 05/20/25 00:50 Temperature Pulse Rate 102 H 106 H 81 Respiratory Rate 18 18 Blood Pressure Pulse Oximetry 100 98 Oxygen Delivery Room Air Fraction of Inspired Oxygen 21 05/20/25 04:00 05/20/25 04:00 05/20/25 04:00 Temperature 36.7 C Pulse Rate 96 77 96 Respiratory Rate 14 14 Blood Pressure 132/71 Pulse Oximetry 100 100 Oxygen Delivery Room Air Fraction of Inspired Oxygen 21 05/20/25 08:00 05/20/25 08:00 05/20/25 08:00 Temperature Pulse Rate 91 102 H Respiratory Rate 20 Blood Pressure 110/80 Pulse Oximetry 99 Oxygen Delivery Room Air Fraction of Inspired Oxygen 21 05/20/25 11:47 05/20/25 11:50 Temperature 36.6 C Pulse Rate 93 Respiratory Rate 14 Blood Pressure 133/78 Pulse Oximetry 100 Oxygen Delivery Room Air Fraction of Inspired Oxygen Intake/Output Intake/Output: Intake & Output 05/17/25 05/18/25 05/19/25 05/20/25 23:59 23:59 23:59 23:59 Intake Total 690 1210 830 440 Output Total 950 550 800 900 Balance -260 660 30 -460 Meds/Results Medications: Active Medications Generic Name Dose Route Start Last Admin Trade Name Freq PRN Reason Stop Dose Admin Acetaminophen 650 mg 05/09/25 13:23 05/19/25 09:04 Acetaminophen 325 Mg Tablet PO 650 mg Q6H PRN Administration Pain Rated 1-3 Atorvastatin Calcium 40 mg 05/10/25 09:00 05/20/25 09:44 Atorvastatin 40 Mg Tablet PO 40 mg DAILY JUSTINA Administration Bupropion HCl 150 mg 05/10/25 09:00 05/20/25 09:44 Bupropion Hcl Xl (24 Hr) 150 Mg Tabcr PO 150 mg DAILY JUSTINA Administration Ciprofloxacin 500 mg 05/13/25 21:00 05/20/25 09:44 Ciprofloxacin 500 Mg Tab PO 05/27/25 20:59 500 mg Q12HR JUSTINA Administration Donepezil HCl 10 mg 05/10/25 09:00 05/20/25 09:45 Donepezil Hcl 10 Mg Tablet PO 10 mg DAILY JUSITNA Administration Fentanyl Citrate 25 mcg 05/11/25 12:01 Fentanyl Citrate Inj (*Crx) 100 Mcg/2 Ml Vial IV PUSH Q2M PRN Pain Ferrous Gluconate 324 mg 05/18/25 12:00 05/20/25 13:56 Ferrous Gluconate 324 Mg Tablet PO Not Given DAILY@1200 [facility] Hydralazine HCl 10 mg 05/13/25 05:42 05/13/25 05:59 Hydralazine Hcl 20 Mg/Ml Vial IV PUSH 10 mg Q4H PRN Administration SYSTOLIC BP >160 Lacosamide 200 mg 05/09/25 22:35 05/20/25 09:44 Lacosamide (*Crx) 200 Mg Tablet PO 200 mg Q12HR [facility] Administration Lisinopril 40 mg 05/10/25 09:00 05/20/25 09:45 Lisinopril 20 Mg Tablet PO 40 mg QAM JUSTINA Administration Metoprolol Succinate 50 mg 05/10/25 09:00 05/20/25 09:44 Metoprolol Succinate Ext Rel 50 Mg Tabcr PO 50 mg DAILY JUSTINA Administration Miscellaneous Information 1 each 05/19/25 00:01 Lacosamide Needs To Be Renewed Or It Will Automatically Discontinue. XX 06/18/25 00:00 CLARIFY [facility] Ondansetron HCl 4 mg 05/09/25 13:24 Ondansetron Hcl Odt 4 Mg Tablet PO Q4H PRN Nausea And Vomiting Ondansetron HCl 4 mg 05/11/25 12:01 Ondansetron Inj 4 Mg/2 Ml Vial IV PUSH ONCE PRN Nausea Quetiapine Fumarate 25 mg 05/20/25 14:03 Quetiapine Fumarate 25 Mg Tablet PO Q12HR PRN agitation Quetiapine Fumarate 50 mg 05/20/25 18:00 Quetiapine Fumarate 25 Mg Tablet PO EVENING [facility] Tamsulosin HCl 0.4 mg 05/20/25 21:00 Tamsulosin Hcl 0.4 Mg Capsule PO [facility] Radiology Results: ITS Impressions Chest/Abdomen/Pelvis CT 05/09/25 12:34 IMPRESSION: 1. Prostatomegaly with surrounding from trace stranding also extending around the bilateral seminal vesicles which raises concern for prostatitis. 2. No acute cardiopulmonary disease or other acute intra-abdominal/pelvic process. Chest X-Ray 05/19/25 11:58 IMPRESSION: No acute process. Head CT 05/19/25 12:13 IMPRESSION: 1. No significant interval change. Bilateral lacunar infarcts, as detailed above. 2. Other chronic findings including parenchymal atrophy and chronic small vessel ischemic changes. Labs Labs: Laboratory Results - last 24 hr 05/19/25 05/20/25 14:09 04:11 WBC 11.3 H RBC 2.83 L Hgb 8.7 L Hct 26.8 L MCV 94.7 MCH 30.7 MCHC 32.5 RDW 15.0 H Plt Count 387 H MPV 9.2 Immature Gran % (Auto) 0.7 H Neut % (Auto) 78.3 H Lymph % (Auto) 13.0 L [place] % (Auto) 5.8 Eos % (Auto) 1.8 Baso % (Auto) 0.4 Lymph # (Auto) 1.47 [place] # (Auto) 0.7 H Eos # (Auto) 0.2 Baso # (Auto) 0.1 Abs Immat Gran (auto) 0.08 H Absolute Neuts (auto) 8.9 H Absolute Nucleated RBC 0.000 Nucleated RBC % 0.0 Sodium 137 Potassium 3.6 Chloride 105 Carbon Dioxide 26 Anion Gap 6 BUN 11 Creatinine 0.90 Estim Creat Clear Calc 63 Estimated GFR > 60 Glucose 123 H Calcium 8.9 Iron 46 L TIBC 260 L % Saturation 18 L Ferritin 77.90 Total Bilirubin 0.4 AST 26 ALT 15 Alkaline Phosphatase 84 Total Protein 6.1 L Albumin 3.4 L
[2025-05-20 20:00] VITALS: BP 134/70; PULSE 80; RESP 20; TEMP 36.7; O2SAT 100
[2025-05-20] MEDS: TAMSULOSIN HCL 0.4 MG CAPSULE PO (20:06)
[2025-05-21 05:11] LABS: Hematocrit 25.5 % (42.0-52.0); Hemoglobin 8.2 g/dL (14.0-18.0); Immature Granulocyte Percent A 0.8 % (0-0.5); Lymphocytes Absolute Auto 0.90 K/mm3 (0.9-3.2); Mean Corpuscular HGB Conc 32.2 g/dl (32-36); Mean Corpuscular Hemoglobin 30.7 pg (26-34); Mean Corpuscular Volume 95.5 fl (80-100); Nucleated Red Blood Cells Absolute Auto 0.000 K/mm3 (0.0-0.012); Nucleated Red Blood Cells Perc 0.0 % (0.0-0.2); Platelet Count Result 512 k/mm3 (150-375); Red Blood Count 2.67 M/mm3 (4.6-6.20); White Blood Count 7.6 K/mm3 (4.5-10.0)
[2025-05-21 05:36] LABS: Alanine Aminotransferase 14 U/L (6-50); Albumin Level 3.2 g/dL (3.5-5.1); Alkaline Phosphatase 81 U/L (38-126); Anion Gap 4 mmol/L (4-12); Aspartate Amino Transferase 25 U/L (17-59); Bilirubin,Total 0.3 mg/dL (0.2-1.3); Blood Urea Nitrogen 11 mg/dL (9-20); Calcium 8.7 mg/dL (8.4-10.2); Carbon Dioxide 29 mmol/L (22-30); Chloride 105 mmol/L (98-107); Estimated CRCL calculation 61 ml/min; Estimated Glomerular Filt Rate > 60; Glucose 124 mg/dL (65-110); Potassium 3.5 mmol/L (3.4-5.0); Sodium 138 mmol/L (137-145); Total Protein 5.8 g/dL (6.3-8.2)
--- NOTE | 2025-05-21 07:07 | P.PNIM_ITS ---
Progress Note: A&P Assessment and Plan (1) AMS (altered mental status): Qualifiers: Altered mental status type: delirium Qualified Code(s): R41.0 - Disorientation, unspecified Code(s): R41.82 - Altered mental status, unspecified Status: Acute Assessment and Plan: -Head CT, 05/09 with no acute process, old lacunar infarcts in the R basal ganglia and coronal radiata of the bilateral frontal and right parietal lobes. Age-related changes. -recent dx of CVA on 04/23. MRI showed a small acute infarct at the genu of the right corpus callosum and several old lacunar infarcts at the right basal ganglia and right frontal and parietal lobe dobbins radiata. -developed agitation during last admission, thought to be secondary to CVA vs. side effect of Keppra so was transitioned to Lacosamide -UDS + for cannabis 04/22 -UA consistent with UTI, imaging suggest prostatitis -suspect worsening mental status secondary to acute UTI/prostatitis. Management as below. -Started on Aricept 10mg - patient had episode of altered consciousness with [employer] 05/19 (see note), most likely orthostatic event/vasovagal, less likely seizure or CVA, neuro in agreement. -initially started on Zyprexa, concern for EPS noted 05/19, psych reconsulted and recommended switching to Seroquel. Patient required Valium and Benadryl overn ight 05/19. Uptitrated Seroquel. (2) Urinary retention: Code(s): R33.9 - Retention of urine, unspecified Status: Acute Assessment and Plan: - urinary retention noted on admission. Required Viera catheter insertion. Patient became agitated and pulled out Viera which required stat cystoscopy with clot evacuation and complex Viera catheter insertion 05/11. During operation, significant blood clot in obvious injury to the membranous urethra, [address] catheter placed. - voiding trial 05/20, patient failed and required straight cath. Urology recommended catheter reinsertion 05/21. If Hgb stable and no hematuria 05/22 will plan to restart Eliquis L (3) Prostatitis: Qualifiers: Prostatitis type: acute Qualified Code(s): N41.0 - Acute prostatitis Code(s): N41.9 - Inflammatory disease of prostate, unspecified Status: Acute Assessment and Plan: -CT showed indicators of prostatitis - UA consistent with infection -Urine culture was collected, but apparently never received by [facility] -urology following -Started on Ciprofloxacin IV switched to Oral on 05/13, end date 05/27 (4) Anemia: Qualifiers: Anemia type: unspecified type Qualified Code(s): D64.9 - Anemia, unspecified Code(s): D64.9 - Anemia, unspecified Status: Acute Assessment and Plan: -Hgb 12.3 upon admission on 05/09. 15.7 at discharge on 04/29. -iron and iron saturation low - acute drop likely secondary to hematuria in setting of Viera trauma -Transfuse if <7 -Trend H&H -Of note, recently started on Eliquis and Plavix secondary to acute stroke zaire singh this month -05/20: Hgb 8.2 - oncology following and recommended IV Venofer (5) Sepsis: Code(s): A41.9 - Sepsis, unspecified organism Status: Ruled-out Assessment and Plan: -sepsis present on admission as evidenced by tachycardia, tachypnea, leukocytosis -source: UTI with possible prostatitis -management of UTI as below - Urine culture was sent however apparently never received by [facility] -WBC down from 27.9 on admission, now normalized -Blood cultures negative for growth - final - sepsis resolved (6) History of CVA (cerebrovascular accident): Code(s): Z86.73 - Personal history of transient ischemic attack (TIA), and cerebral infarction without residual deficits Status: Chronic Assessment and Plan: -Brain MRI, 04/23 with small acute infarct at the genu of the right corpus callosum, several old lacunar infarcts, multiple small foci of susceptibility artifact scattered throughout the brain including the cerebral hemispheres, midbrain and cerebellum consistent with chronic microhemorrhage typically seen in the setting of hypertension but can also be seen with amyloid angiopathy. -worsening AMS likely secondary to UTI, however could be sequela of recent CVA. started on abx, monitor response. -discussed with Dr. Miguel falk to stop ASA, Plavix as patient was found to have Afib on last admission. Eliqis on hold due to Viera trauma and plan to hold until voiding trial completed to avoid recurrent bleeding. - Neurology reconsulted due to episode of altered consciousness 05/19, suspect vasovagal event (7) Seizure disorder: Code(s): G40.909 - Epilepsy, unspecified, not intractable, without status epilepticus Status: Chronic Assessment and Plan: -continue lacosamide (switched from Keppra due to agitation on last admit) (8) Atrial fibrillation: Qualifiers: Atrial fibrillation type: unspecified chronic Qualified Code(s): I48.20 - Chronic atrial fibrillation, unspecified Code(s): I48.91 - Unspecified atrial fibrillation Status: Chronic Assessment and Plan: -continue metoprolol. Eliquis on hold due to hematuria. Planning to restart 05/22 if Hgb stable per discussion with Urology. (9) Hypertension: Qualifiers: Hypertension type: essential hypertension Qualified Code(s): I10 - Essential (primary) hypertension Code(s): I10 - Essential (primary) hypertension Status: Chronic Assessment and Plan: -chronic -continue home medications: Lisinopril, metoprolol -monitor (10) Thrombocytosis: Code(s): D75.839 - Thrombocytosis, unspecified Status: Acute Assessment and Plan: -Upon admission Plts 317 - trended up to 617 -Could be 2/2 underlying anemia, prostatitis, UTI -No splenomegaly on exam -consulted hematology, suspect reactive thrombocytosis, no further work-up necessary - improving - monitor CBC Plan DVT Prophylaxis: Eliquis Disposition: TBD Code Status: Full code Subjective Date/time seen: 05/21/25 07:07 Interval history: Patient seen and examined at bedside. Confused this AM, but calm. Review of Systems Review of Systems: All systems reviewed & are unremarkable except as noted in HPI and below Exam Narrative: General: NAD Eyes: EOMI ENT: neck supple Cardiovascular: Regular rate and rhythm Respiratory: Clear to auscultation, respirations even and unlabored on RA Gastrointestinal: Soft, non tender Genitourinary: no suprapubic tenderness, Musculoskeletal: No edema Skin: warm, dry Neuro: alert, confused. Psych: Mood appropriate Objective Data Vital Signs Vital Signs: Vital Signs - 24 hr 05/20/25 08:00 05/20/25 08:00 05/20/25 08:00 Temperature Pulse Rate 91 102 H Respiratory Rate 20 Blood Pressure 110/80 Pulse Oximetry 99 Oxygen Delivery Room Air Fraction of Inspired Oxygen 21 05/20/25 11:47 05/20/25 11:50 05/20/25 20:00 Temperature 98 F Pulse Rate 93 Respiratory Rate 14 Blood Pressure 133/78 Pulse Oximetry 100 Oxygen Delivery Room Air Room Air Fraction of Inspired Oxygen 05/20/25 20:00 Temperature 98.1 F Pulse Rate 80 Respiratory Rate 20 Blood Pressure 134/70 Pulse Oximetry 100 Oxygen Delivery Fraction of Inspired Oxygen Intake/Output Intake/Output: Intake & Output 05/18/25 05/19/25 05/20/25 05/21/25 23:59 23:59 23:59 23:59 Intake Total 8810 759 0100 Output Total 550 800 900 900 Balance 660 30 570 -900 Meds/Results Medications: Active Medications Generic Name Dose Route Start Last Admin Trade Name Freq PRN Reason Stop Dose Admin Acetaminophen 650 mg 05/09/25 13:23 05/19/25 09:04 Acetaminophen 325 Mg Tablet PO 650 mg Q6H PRN Administration Pain Rated 1-3 Atorvastatin Calcium 40 mg 05/10/25 09:00 05/20/25 09:44 Atorvastatin 40 Mg Tablet PO 40 mg DAILY JUSTINA Administration Bupropion HCl 150 mg 05/10/25 09:00 05/20/25 09:44 Bupropion Hcl Xl (24 Hr) 150 Mg Tabcr PO 150 mg DAILY JUSTINA Administration Ciprofloxacin 500 mg 05/13/25 21:00 05/20/25 20:08 Ciprofloxacin 500 Mg Tab PO 05/27/25 20:59 500 mg Q12HR JUSTINA Administration Donepezil HCl 10 mg 05/10/25 09:00 05/20/25 09:45 Donepezil Hcl 10 Mg Tablet PO 10 mg DAILY [facility]INA Administration Fentanyl Citrate 25 mcg 05/11/25 12:01 Fentanyl Citrate Inj (*Crx) 100 Mcg/2 Ml Vial IV PUSH Q2M PRN Pain Ferrous Gluconate 324 mg 05/18/25 12:00 05/20/25 13:56 Ferrous Gluconate 324 Mg Tablet PO Not Given On Hold: 05/21/25 06:59 DAILY@1200 [facility] Hydralazine HCl 10 mg 05/13/25 05:42 05/13/25 05:59 Hydralazine Hcl 20 Mg/Ml Vial IV PUSH 10 mg Q4H PRN Administration SYSTOLIC BP >160 Iron Sucrose 200 mg/ Iron 265 mls @ 176.667 mls/hr 05/21/25 09:00 Sucrose 100 mg/ Sodium IVPB 05/24/25 08:59 Chloride DAILY [facility] Lacosamide 200 mg 05/09/25 22:35 05/20/25 20:06 Lacosamide (*Crx) 200 Mg Tablet PO 200 mg Q12HR JUSTINA Administration Lisinopril 40 mg 05/10/25 09:00 05/20/25 09:45 Lisinopril 20 Mg Tablet PO 40 mg QAM JUSTINA Administration Metoprolol Succinate 50 mg 05/10/25 09:00 05/20/25 09:44 Metoprolol Succinate Ext Rel 50 Mg Tabcr PO 50 mg DAILY JUSTINA Administration Miscellaneous Information 1 each 05/19/25 00:01 Lacosamide Needs To Be Renewed Or It Will Automatically Discontinue. XX 06/18/25 00:00 CLARIFY JUSTINA Ondansetron HCl 4 mg 05/09/25 13:24 Ondansetron Hcl Odt 4 Mg Tablet PO Q4H PRN Nausea And Vomiting Ondansetron HCl 4 mg 05/11/25 12:01 Ondansetron Inj 4 Mg/2 Ml Vial IV PUSH ONCE PRN Nausea Quetiapine Fumarate 25 mg 05/20/25 14:03 05/20/25 20:06 Quetiapine Fumarate 25 Mg Tablet PO 25 mg Q12HR PRN Administration agitation Quetiapine Fumarate 50 mg 05/20/25 18:00 05/20/25 17:24 Quetiapine Fumarate 25 Mg Tablet PO 50 mg EVENING JUSTINA Administration Tamsulosin HCl 0.4 mg 05/20/25 21:00 05/20/25 20:06 Tamsulosin Hcl 0.4 Mg Capsule PO 0.4 mg HS JUSTINA Administration Radiology Results: ITS Impressions Chest/Abdomen/Pelvis CT 05/09/25 12:34 IMPRESSION: 1. Prostatomegaly with surrounding from trace stranding also extending around the bilateral seminal vesicles which raises concern for prostatitis. 2. No acute cardiopulmonary disease or other acute intra-abdominal/pelvic process. Chest X-Ray 05/19/25 11:58 IMPRESSION: No acute process. Head CT 05/19/25 12:13 IMPRESSION: 1. No significant interval change. Bilateral lacunar infarcts, as detailed above. 2. Other chronic findings including parenchymal atrophy and chronic small vessel ischemic changes. Labs Labs: Laboratory Results - last 24 hr 05/21/25 04:28 WBC 7.6 RBC 2.67 L Hgb 8.2 L Hct 25.5 L MCV 95.5 MCH 30.7 MCHC 32.2 RDW 15.3 H Plt Count 512 H MPV 8.3 Immature Gran % (Auto) 0.8 H Neut % (Auto) 75.8 H Lymph % (Auto) 11.9 L [place] % (Auto) 7.5 Eos % (Auto) 3.2 Baso % (Auto) 0.8 Lymph # (Auto) 0.90 [place] # (Auto) 0.6 Eos # (Auto) 0.2 Baso # (Auto) 0.1 Abs Immat Gran (auto) 0.06 H Absolute Neuts (auto) 5.8 Absolute Nucleated RBC 0.000 Nucleated RBC % 0.0 Sodium 138 Potassium 3.5 Chloride 105 Carbon Dioxide 29 Anion Gap 4 BUN 11 Creatinine 0.93 Estim Creat Clear Calc 61 Estimated GFR > 60 Glucose 124 H Calcium 8.7 Total Bilirubin 0.3 AST 25 ALT 14 Alkaline Phosphatase 81 Total Protein 5.8 L Albumin 3.2 L Quality VTE Prophylaxis VTE prophylaxis: pharmacologic ordered
[2025-05-21 08:30] VITALS: BP 142/92; PULSE 97
[2025-05-21 08:31] VITALS: PULSE 97
[2025-05-21] MEDS: buPROPion HCL XL (24 HR) 150 MG TABCR PO (08:31)
[2025-05-21] MEDS: METOPROLOL SUCCINATE EXT REL 50 MG TABCR PO (08:31)
[2025-05-21] MEDS: CIPROFLOXACIN 500 MG TAB PO ×2 (08:31→21:45)
[2025-05-21] MEDS: DONEPEZIL HCL 10 MG TABLET PO (08:31)
[2025-05-21] MEDS: IRON SUCROSE COMPLEX 200 MG, IRON SUCROSE COMPLEX 100 MG in SODIUM CHLORIDE 0.9% IV 250 ML 176.67 MG IVPB (08:32)
[2025-05-21] MEDS: ATORVASTATIN 40 MG TABLET PO (08:32)
[2025-05-21] MEDS: LACOSAMIDE (*CRX) 200 MG TABLET PO ×2 (08:32→21:45)
--- NOTE | 2025-05-21 13:10 | WPDONCPN ---
Progress Note: A&P Assessment and Plan (1) Thrombocytosis: Code(s): D75.839 - Thrombocytosis, unspecified Status: Acute Assessment and Plan: Patient with acute thrombocytosis started on 05/15/25. This is likely reactive thrombocytosis in the setting of infection (UTI/prostatitis). Patient also had hematuria and Iron panel is indicative of Iron deficiency. Patient is on oral iron (Ferrous gluconate) but may not be sufficient to replete. A repeat Iron studies with ferritin shows iron saturations low and ferritin further decreased. Patient is getting IV iron today. Infectious reactive thrombocytosis usually 3-4 weeks post infection and see platelets back to baseline. Additionally, ciprofloxacin is also reported to cause thrombocytosis in rare patients in post marketing surveillance and is in FDA drug label. No additional work up other than what ordered. Platelet count is 512 K. Will continue to follow. Subjective Date/time seen: 05/21/25 13:10 Interval history: NO overnight events. More cohesive with conversations. Review of Systems Review of Systems Patient's mentation is much better.. States that he feels OK. No fevers, chills, or night sweats. Denies chest pain, cough or hemoptysis. Denies abdominal pain, n/v/d. Rest of ROS is negative Exam Narrative: General: ill-appearing, no acute distress Eyes: EOMI ENT: neck supple Cardiovascular: Regular rate and rhythm Respiratory: CTAB Gastrointestinal: Soft, non tender Genitourinary: Viera catheter draining clear urine Musculoskeletal: No edema Skin: warm, dry Neuro: No focal deficits Objective Data Vital Signs Vital Signs: Vital Signs - 24 hr 05/20/25 20:00 05/20/25 20:00 05/21/25 08:30 Temperature 36.7 C Pulse Rate 80 97 Respiratory Rate 20 Blood Pressure 134/70 142/92 H Pulse Oximetry 100 Oxygen Delivery Room Air 05/21/25 08:31 05/21/25 08:45 Temperature Pulse Rate 97 Respiratory Rate Blood Pressure Pulse Oximetry Oxygen Delivery Room Air Intake/Output Intake/Output: Intake & Output 05/18/25 05/19/25 05/20/25 05/21/25 23:59 23:59 23:59 23:59 Intake Total 7192 399 2125 480 Output Total 550 800 900 900 Balance 660 30 570 -420 Meds/Results Medications: Active Medications Generic Name Dose Route Start Last Admin Trade Name Freq PRN Reason Stop Dose Admin Acetaminophen 650 mg 05/09/25 13:23 05/19/25 09:04 Acetaminophen 325 Mg Tablet PO 650 mg Q6H PRN Administration Pain Rated 1-3 Atorvastatin Calcium 40 mg 05/10/25 09:00 05/21/25 08:32 Atorvastatin 40 Mg Tablet PO 40 mg DAILY JUSTINA Administration Bupropion HCl 150 mg 05/10/25 09:00 05/21/25 08:31 Bupropion Hcl Xl (24 Hr) 150 Mg Tabcr PO 150 mg DAILY JUSTINA Administration Ciprofloxacin 500 mg 05/13/25 21:00 05/21/25 08:31 Ciprofloxacin 500 Mg Tab PO 05/27/25 20:59 500 mg Q12HR JUSTINA Administration Donepezil HCl 10 mg 05/10/25 09:00 05/21/25 08:31 Donepezil Hcl 10 Mg Tablet PO 10 mg DAILY JUST[facility] Administration Ferrous Gluconate 324 mg 05/18/25 12:00 05/20/25 13:56 Ferrous Gluconate 324 Mg Tablet PO Not Given On Hold: 05/21/25 06:59 DAILY@1200 [facility] Hydralazine HCl 10 mg 05/13/25 05:42 05/13/25 05:59 Hydralazine Hcl 20 Mg/Ml Vial IV PUSH 10 mg Q4H PRN Administration SYSTOLIC BP >160 Iron Sucrose 200 mg/ Iron 265 mls @ 176.667 mls/hr 05/21/25 09:00 05/21/25 08:32 Sucrose 100 mg/ Sodium IVPB 05/24/25 08:59 176.67 mls/hr Chloride DAILY [facility] Administration Lacosamide 200 mg 05/09/25 22:35 05/21/25 08:32 Lacosamide (*Crx) 200 Mg Tablet PO 200 mg Q12HR JUSTINA Administration Lisinopril 40 mg 05/10/25 09:00 05/21/25 08:31 Lisinopril 20 Mg Tablet PO 40 mg QAM JUSTINA Administration Metoprolol Succinate 50 mg 05/10/25 09:00 05/21/25 08:31 Metoprolol Succinate Ext Rel 50 Mg Tabcr PO 50 mg DAILY [facility] Administration Ondansetron HCl 4 mg 05/09/25 13:24 Ondansetron Hcl Odt 4 Mg Tablet PO Q4H PRN Nausea And Vomiting Ondansetron HCl 4 mg 05/11/25 12:01 Ondansetron Inj 4 Mg/2 Ml Vial IV PUSH ONCE PRN Nausea Quetiapine Fumarate 25 mg 05/20/25 14:03 05/20/25 20:06 Quetiapine Fumarate 25 Mg Tablet PO 25 mg Q12HR PRN Administration agitation Quetiapine Fumarate 50 mg 05/20/25 18:00 05/20/25 17:24 Quetiapine Fumarate 25 Mg Tablet PO 50 mg EVENING JUSTINA Administration Tamsulosin HCl 0.4 mg 05/20/25 21:00 05/20/25 20:06 Tamsulosin Hcl 0.4 Mg Capsule PO 0.4 mg HS JUSTINA Administration Radiology Results: ITS Impressions Chest/Abdomen/Pelvis CT 05/09/25 12:34 IMPRESSION: 1. Prostatomegaly with surrounding from trace stranding also extending around the bilateral seminal vesicles which raises concern for prostatitis. 2. No acute cardiopulmonary disease or other acute intra-abdominal/pelvic process. Chest X-Ray 05/19/25 11:58 IMPRESSION: No acute process. Head CT 05/19/25 12:13 IMPRESSION: 1. No significant interval change. Bilateral lacunar infarcts, as detailed above. 2. Other chronic findings including parenchymal atrophy and chronic small vessel ischemic changes. Labs Labs: Laboratory Results - last 24 hr 05/21/25 04:28 WBC 7.6 RBC 2.67 L Hgb 8.2 L Hct 25.5 L MCV 95.5 MCH 30.7 MCHC 32.2 RDW 15.3 H Plt Count 512 H MPV 8.3 Immature Gran % (Auto) 0.8 H Neut % (Auto) 75.8 H Lymph % (Auto) 11.9 L [place] % (Auto) 7.5 Eos % (Auto) 3.2 Baso % (Auto) 0.8 Lymph # (Auto) 0.90 [place] # (Auto) 0.6 Eos # (Auto) 0.2 Baso # (Auto) 0.1 Abs Immat Gran (auto) 0.06 H Absolute Neuts (auto) 5.8 Absolute Nucleated RBC 0.000 Nucleated RBC % 0.0 Sodium 138 Potassium 3.5 Chloride 105 Carbon Dioxide 29 Anion Gap 4 BUN 11 Creatinine 0.93 Estim Creat Clear Calc 61 Estimated GFR > 60 Glucose 124 H Calcium 8.7 Total Bilirubin 0.3 AST 25 ALT 14 Alkaline Phosphatase 81 Total Protein 5.8 L Albumin 3.2 L
--- NOTE | 2025-05-21 14:47 | PC.NURSE ---
Called provider Dr. Rubin and asked what size catheter and how many mLs we should put in the balloon once we place in pt. Dr. Rubin said it doesn't matter on size catheter but to fill the balloon with [address] a 22 Fr catheter in pt.
--- NOTE | 2025-05-21 15:34 | WPDNEUROLOGY ---
Neurology EEG Report General Information Date of Study: 05/20/25 TEST EEG DIAGNOSIS Acute mental status changes. CONDITION OF RECORDING Awake, confused, cooperative, drowsy, asleep. EEG NUMBER [id number] CLINICAL HISTORY 69 years old male with complaints of recurrent episodes of aggression and confusion when entering the room patient was pleasant, but told me he got a raise and his brain was split down the middle, and that is why he was here. Patient does make sense, but says things that do not exactly makes sense. He also repeats himself often. Nurse informed me that out the day his confusion depends on the hour, but is aggravation is mainly at nighttime. EEG DESCRIPTION Whole record consists of low to medium voltage 5 to 7 hertz per 2nd theta activity with intermittent bilateral symmetrical sleep spindles during sleep. Photic stimulation not done. Hyperventilation not done. Non paroxysmal. Nonfocal. Nonlateralizing. IMPRESSION No significant abnormalities noted during drowsiness and sleep. Clinical correlation recommended, these abnormalities could be suggestive of organic or metabolic encephalopathy but there is no evidence of active seizure or any focal brain dysfunction.
--- NOTE | 2025-05-21 15:34 | PC.NURSE ---
Unsuccessful at getting the 22 Fr inserted, placed an 18 Fr instead and filled balloom with 30 mL. Pt tolerated procedure well.
[2025-05-21] MEDS: ACETAMINOPHEN 325 MG TABLET 650 MG PO (21:43)
[2025-05-21] MEDS: TAMSULOSIN HCL 0.4 MG CAPSULE PO (21:44)
--- NOTE | 2025-05-21 21:53 | P.PNUR_ITS ---
Progress Note: A&P Assessment and Plan (1) Urinary retention: Code(s): R33.9 - Retention of urine, unspecified Status: Acute Assessment and Plan: urine draining clear void trial in 1 week ok to resume anticoagulation pt unable to perform self CIC, continue flomax monitor and re-direct to make sure he doesnt self extract meyer cath Subjective Subjective Date/Time Seen: 05/21/25 21:53 Interval history: failed void trial, meyer reinserted. doing ok. no complaints Review of Systems Review of Systems: All systems reviewed & are unremarkable except as noted in HPI and below Exam Narrative: General: The patient is well-developed in no acute distress. Appears comfortable on exam. HEENT: Normocephalic, normal ear and nose structures Skin: Warm, dry, with no lesions seen on visible skin Lungs: Normal respiratory effort Heart: Appears well perfused Abdomen: Nondistended Suprapubic area: Nondistended Extremities: Upper with no deformities. Lower - no edema Neurologic: The patient is oriented to person. Easily redirected. Normal mood and affect. Urinary Catheter: Urinary Catheter: patent and draining and urine clear Objective Data Vital Signs Vital Signs: Vital Signs - 24 hr 05/21/25 08:30 05/21/25 08:31 05/21/25 08:45 Pulse Rate 97 97 Blood Pressure 142/92 H Oxygen Delivery Room Air Intake/Output Intake/Output: Intake & Output 05/18/25 05/19/25 05/20/25 05/21/25 23:59 23:59 23:59 23:59 Intake Total 9557 301 0504 2640 Output Total 550 800 900 900 Balance 660 30 570 1740 Meds/Results Medications: Active Medications Generic Name Dose Route Start Last Admin Trade Name Freq PRN Reason Stop Dose Admin Acetaminophen 650 mg 05/09/25 13:23 05/21/25 21:43 Acetaminophen 325 Mg Tablet PO 650 mg Q6H PRN Administration Pain Rated 1-3 Atorvastatin Calcium 40 mg 05/10/25 09:00 05/21/25 08:32 Atorvastatin 40 Mg Tablet PO 40 mg DAILY [facility] Administration Bupropion HCl 150 mg 05/10/25 09:00 05/21/25 08:31 Bupropion Hcl Xl (24 Hr) 150 Mg Tabcr PO 150 mg DAILY JUSTINA Administration Ciprofloxacin 500 mg 05/13/25 21:00 05/21/25 21:45 Ciprofloxacin 500 Mg Tab PO 05/27/25 20:59 500 mg Q12HR JUSTINA Administration Donepezil HCl 10 mg 05/10/25 09:00 05/21/25 08:31 Donepezil Hcl 10 Mg Tablet PO 10 mg DAILY [facility] Administration Ferrous Gluconate 324 mg 05/18/25 12:00 05/20/25 13:56 Ferrous Gluconate 324 Mg Tablet PO Not Given On Hold: 05/21/25 06:59 DAILY@1200 [facility] Hydralazine HCl 10 mg 05/13/25 05:42 05/13/25 05:59 Hydralazine Hcl 20 Mg/Ml Vial IV PUSH 10 mg Q4H PRN Administration SYSTOLIC BP >160 Iron Sucrose 200 mg/ Iron 265 mls @ 176.667 mls/hr 05/21/25 09:00 05/21/25 08:32 Sucrose 100 mg/ Sodium IVPB 05/24/25 08:59 176.67 mls/hr Chloride DAILY [facility] Administration Lacosamide 200 mg 05/09/25 22:35 05/21/25 21:45 Lacosamide (*Crx) 200 Mg Tablet PO 200 mg Q12HR [facility]INA Administration Lisinopril 40 mg 05/10/25 09:00 05/21/25 08:31 Lisinopril 20 Mg Tablet PO 40 mg QAM JUSTINA Administration Metoprolol Succinate 50 mg 05/10/25 09:00 05/21/25 08:31 Metoprolol Succinate Ext Rel 50 Mg Tabcr PO 50 mg DAILY [facility] Administration Ondansetron HCl 4 mg 05/09/25 13:24 Ondansetron Hcl Odt 4 Mg Tablet PO Q4H PRN Nausea And Vomiting Ondansetron HCl 4 mg 05/11/25 12:01 Ondansetron Inj 4 Mg/2 Ml Vial IV PUSH ONCE PRN Nausea Quetiapine Fumarate 25 mg 05/20/25 14:03 05/21/25 21:44 Quetiapine Fumarate 25 Mg Tablet PO 25 mg Q12HR PRN Administration agitation Quetiapine Fumarate 50 mg 05/20/25 18:00 05/21/25 17:34 Quetiapine Fumarate 25 Mg Tablet PO 50 mg EVENING JUSTINA Administration Tamsulosin HCl 0.4 mg 05/20/25 21:00 05/21/25 21:44 Tamsulosin Hcl 0.4 Mg Capsule PO 0.4 mg HS JUSTINA Administration Radiology Results: ITS Impressions Chest/Abdomen/Pelvis CT 05/09/25 12:34 IMPRESSION: 1. Prostatomegaly with surrounding from trace stranding also extending around the bilateral seminal vesicles which raises concern for prostatitis. 2. No acute cardiopulmonary disease or other acute intra-abdominal/pelvic process. Chest X-Ray 05/19/25 11:58 IMPRESSION: No acute process. Head CT 05/19/25 12:13 IMPRESSION: 1. No significant interval change. Bilateral lacunar infarcts, as detailed above. 2. Other chronic findings including parenchymal atrophy and chronic small vessel ischemic changes. Labs Labs: Laboratory Results - last 24 hr 05/21/25 04:28 WBC 7.6 RBC 2.67 L Hgb 8.2 L Hct 25.5 L MCV 95.5 MCH 30.7 MCHC 32.2 RDW 15.3 H Plt Count 512 H MPV 8.3 Immature Gran % (Auto) 0.8 H Neut % (Auto) 75.8 H Lymph % (Auto) 11.9 L [place] % (Auto) 7.5 Eos % (Auto) 3.2 Baso % (Auto) 0.8 Lymph # (Auto) 0.90 [place] # (Auto) 0.6 Eos # (Auto) 0.2 Baso # (Auto) 0.1 Abs Immat Gran (auto) 0.06 H Absolute Neuts (auto) 5.8 Absolute Nucleated RBC 0.000 Nucleated RBC % 0.0 Sodium 138 Potassium 3.5 Chloride 105 Carbon Dioxide 29 Anion Gap 4 BUN 11 Creatinine 0.93 Estim Creat Clear Calc 61 Estimated GFR > 60 Glucose 124 H Calcium 8.7 Total Bilirubin 0.3 AST 25 ALT 14 Alkaline Phosphatase 81 Total Protein 5.8 L Albumin 3.2 L
[2025-05-21 23:39] VITALS: BP 129/85; PULSE 81; RESP 18; TEMP 36.5; O2SAT 100
[2025-05-22 05:00] LABS: Hematocrit 25.9 % (42.0-52.0); Hemoglobin 8.3 g/dL (14.0-18.0); Immature Granulocyte Percent A 0.8 % (0-0.5); Lymphocytes Absolute Auto 1.22 K/mm3 (0.9-3.2); Mean Corpuscular HGB Conc 32.0 g/dl (32-36); Mean Corpuscular Hemoglobin 30.3 pg (26-34); Mean Corpuscular Volume 94.5 fl (80-100); Nucleated Red Blood Cells Absolute Auto 0.000 K/mm3 (0.0-0.012); Nucleated Red Blood Cells Perc 0.0 % (0.0-0.2); Platelet Count Result 503 k/mm3 (150-375); Red Blood Count 2.74 M/mm3 (4.6-6.20); White Blood Count 7.5 K/mm3 (4.5-10.0)
[2025-05-22 05:17] LABS: Alanine Aminotransferase 13 U/L (6-50); Albumin Level 3.1 g/dL (3.5-5.1); Alkaline Phosphatase 85 U/L (38-126); Anion Gap 1 mmol/L (4-12); Aspartate Amino Transferase 27 U/L (17-59); Bilirubin,Total 0.4 mg/dL (0.2-1.3); Blood Urea Nitrogen 8 mg/dL (9-20); Calcium 8.8 mg/dL (8.4-10.2); Carbon Dioxide 29 mmol/L (22-30); Chloride 105 mmol/L (98-107); Estimated CRCL calculation 60 ml/min; Estimated Glomerular Filt Rate > 60; Glucose 107 mg/dL (65-110); Potassium 3.8 mmol/L (3.4-5.0); Sodium 135 mmol/L (137-145); Total Protein 5.7 g/dL (6.3-8.2)
--- NOTE | 2025-05-22 06:54 | P.PNIM_ITS ---
Progress Note: A&P Assessment and Plan (1) AMS (altered mental status): Qualifiers: Altered mental status type: delirium Qualified Code(s): R41.0 - Disorientation, unspecified Code(s): R41.82 - Altered mental status, unspecified Status: Acute Assessment and Plan: -Head CT, 05/09 with no acute process, old lacunar infarcts in the R basal ganglia and coronal radiata of the bilateral frontal and right parietal lobes. Age-related changes. -recent dx of CVA on 04/23. MRI showed a small acute infarct at the genu of the right corpus callosum and several old lacunar infarcts at the right basal ganglia and right frontal and parietal lobe dobbins radiata. -developed agitation during last admission, thought to be secondary to CVA vs. side effect of Keppra so was transitioned to Lacosamide -UDS + for cannabis 04/22 -UA consistent with UTI, imaging suggest prostatitis -suspect worsening mental status secondary to acute UTI/prostatitis. Management as below. -Started on Aricept 10mg - patient had episode of altered consciousness with [employer] 05/19 (see note), most likely orthostatic event/vasovagal, less likely seizure or CVA, neuro in agreement. -initially started on Zyprexa, concern for EPS noted 05/19, psych reconsulted and recommended switching to Seroquel. Patient required Valium and Benadryl overn ight 05/19. Uptitrated Seroquel. Patient is improving. (2) Urinary retention: Code(s): R33.9 - Retention of urine, unspecified Status: Acute Assessment and Plan: - urinary retention noted on admission. Required Meyer catheter insertion. Patient became agitated and pulled out Meyer which required stat cystoscopy with clot evacuation and complex Meyer catheter insertion 05/11. During operation, significant blood clot in obvious injury to the membranous urethra, [address] placed. - voiding trial 05/20, patient failed and required straight cath. Urology recommended catheter reinsertion 05/21. OK to restart Eliquis. (3) Prostatitis: Qualifiers: Prostatitis type: acute Qualified Code(s): N41.0 - Acute prostatitis Code(s): N41.9 - Inflammatory disease of prostate, unspecified Status: Acute Assessment and Plan: -CT showed indicators of prostatitis - UA consistent with infection -U[facility] culture was collected, but [facility] -urology following -Started on Ciprofloxacin IV switched to Oral on 05/13, end date 05/27 (4) Anemia: Qualifiers: Anemia type: unspecified type Qualified Code(s): D64.9 - Anemia, unspecified Code(s): D64.9 - Anemia, unspecified Status: Acute Assessment and Plan: -Hgb 12.3 upon admission on 05/09. 15.7 at discharge on 04/29. -iron and iron saturation low - acute drop likely secondary to hematuria in setting of Meyer trauma -Transfuse if <7 -Trend H&H -Of note, recently started on Eliquis and Plavix secondary to acute stroke earlier this month -05/20: Hgb 8.3 - oncology following and recommended IV Venofer - Hgb stable. Eliquis restarted 05/22. Monitor for signs of bleeding. (5) Sepsis: Code(s): A41.9 - Sepsis, unspecified organism Status: Resolved Assessment and Plan: -sepsis present on admission as evidenced by tachycardia, tachypnea, leukocytosis -source: UTI with possible prostatitis -management of UTI as below - Urine culture was sent however apparently never received by [facility] -WBC down from 27.9 on admission, now normalized -Blood cultures negative for growth - final - sepsis resolved (6) History of CVA (cerebrovascular accident): Code(s): Z86.73 - Personal history of transient ischemic attack (TIA), and cerebral infarction without residual deficits Status: Chronic Assessment and Plan: -Brain MRI, 04/23 with small acute infarct at the genu of the right corpus callosum, several old lacunar infarcts, multiple small foci of susceptibility artifact scattered throughout the brain including the cerebral hemispheres, midbrain and cerebellum consistent with chronic microhemorrhage typically seen in the setting of hypertension but can also be seen with amyloid angiopathy. -worsening AMS likely secondary to UTI, however could be sequela of recent CVA. started on abx, monitor response. -discussed with Dr. Miguel falk to stop ASA, Plavix as patient was found to have Afib on last admission. Eliqis held due to Meyer trauma. Restarted 05/22. - Neurology reconsulted due to episode of altered consciousness 05/19, suspect vasovagal event (7) Seizure disorder: Code(s): G40.909 - Epilepsy, unspecified, not intractable, without status epilepticus Status: Chronic Assessment and Plan: -EEG 05/21 unremarkable -continue lacosamide (switched from Keppra due to agitation on last admit) (8) Atrial fibrillation: Qualifiers: Atrial fibrillation type: unspecified chronic Qualified Code(s): I48.20 - Chronic atrial fibrillation, unspecified Code(s): I48.91 - Unspecified atrial fibrillation Status: Chronic Assessment and Plan: -continue metoprolol, Eliquis (9) Hypertension: Qualifiers: Hypertension type: essential hypertension Qualified Code(s): I10 - Essential (primary) hypertension Code(s): I10 - Essential (primary) hypertension Status: Chronic Assessment and Plan: -chronic -continue home medications: Lisinopril, metoprolol -monitor (10) Thrombocytosis: Code(s): D75.839 - Thrombocytosis, unspecified Status: Acute Assessment and Plan: -Upon admission Plts 317 - trended up to 617 -Could be 2/2 underlying anemia, prostatitis, UTI -No splenomegaly on exam -consulted hematology, suspect reactive thrombocytosis, no further work-up necessary - improving - monitor CBC Plan DVT Prophylaxis: Anam Disposition: SNF, hopefully 1-2 days Code Status: Full code Subjective Date/time seen: 05/22/25 06:54 Interval history: Patient seen and examined at bedside. Very pleasant this AM. Well-oreinted. Per nursing had a good night last night. Meyer catheter replaced. Review of Systems Review of Systems: All systems reviewed & are unremarkable except as noted in HPI and below Exam Narrative: General: NAD Eyes: EOMI ENT: neck supple Cardiovascular: Regular rate and rhythm Respiratory: Clear to auscultation, respirations even and unlabored on RA Gastrointestinal: Soft, non tender Genitourinary: no suprapubic tenderness, meyer catheter draining clear yellow urine Musculoskeletal: No edema Skin: warm, dry Neuro: alert and oriented x4. Psych: Mood appropriate Objective Data Vital Signs Vital Signs: Vital Signs - 24 hr 05/21/25 08:30 05/21/25 08:31 05/21/25 08:45 Temperature Pulse Rate 97 97 Respiratory Rate Blood Pressure 142/92 H Pulse Oximetry Oxygen Delivery Room Air 05/21/25 20:00 05/21/25 23:39 Temperature 97.7 F Pulse Rate 81 Respiratory Rate 18 Blood Pressure 129/85 Pulse Oximetry 100 Oxygen Delivery Room Air Intake/Output Intake/Output: Intake & Output 05/19/25 05/20/25 05/21/25 05/22/25 23:59 23:59 23:59 23:59 Intake Total 830 1470 2640 100 Output Total 800 488 693 7797 Balance 30 570 1740 -1400 Meds/Results Medications: Active Medications Generic Name Dose Route Start Last Admin Trade Name Freq PRN Reason Stop Dose Admin Acetaminophen 650 mg 05/09/25 13:23 05/21/25 21:43 Acetaminophen 325 Mg Tablet PO 650 mg Q6H PRN Administration Pain Rated 1-3 Atorvastatin Calcium 40 mg 05/10/25 09:00 05/21/25 08:32 Atorvastatin 40 Mg Tablet PO 40 mg DAILY [facility] Administration Bupropion HCl 150 mg 08/26/25 09:00 05/21/25 08:31 Bupropion Hcl Xl (24 Hr) 150 Mg Tabcr PO 150 mg DAILY JUSTINA Administration Ciprofloxacin 500 mg 05/13/25 21:00 05/21/25 21:45 Ciprofloxacin 500 Mg Tab PO 05/27/25 20:59 500 mg Q12HR JUSTINA Administration Donepezil HCl 10 mg 05/10/25 09:00 05/21/25 08:31 Donepezil Hcl 10 Mg Tablet PO 10 mg DAILY JUSTINA Administration Ferrous Gluconate 324 mg 05/18/25 12:00 05/20/25 13:56 Ferrous Gluconate 324 Mg Tablet PO Not Given On Hold: 05/21/25 06:59 DAILY@1200 [facility] Hydralazine HCl 10 mg 05/13/25 05:42 05/13/25 05:59 Hydralazine Hcl 20 Mg/Ml Vial IV PUSH 10 mg Q4H PRN Administration SYSTOLIC BP >160 Iron Sucrose 200 mg/ Iron 265 mls @ 176.667 mls/hr 05/21/25 09:00 05/21/25 08:32 Sucrose 100 mg/ Sodium IVPB 05/24/25 08:59 176.67 mls/hr Chloride DAILY [facility] Administration Lacosamide 200 mg 05/09/25 22:35 05/21/25 21:45 Lacosamide (*Crx) 200 Mg Tablet PO 200 mg Q12HR [facility]INA Administration Lisinopril 40 mg 05/10/25 09:00 05/21/25 08:31 Lisinopril 20 Mg Tablet PO 40 mg QAM [facility] Administration Metoprolol Succinate 50 mg 05/10/25 09:00 05/21/25 08:31 Metoprolol Succinate Ext Rel 50 Mg Tabcr PO 50 mg DAILY [facility] Administration Ondansetron HCl 4 mg 05/09/25 13:24 Ondansetron Hcl Odt 4 Mg Tablet PO Q4H PRN Nausea And Vomiting Ondansetron HCl 4 mg 05/11/25 12:01 Ondansetron Inj 4 Mg/2 Ml Vial IV PUSH ONCE PRN Nausea Quetiapine Fumarate 25 mg 05/20/25 14:03 05/21/25 21:44 Quetiapine Fumarate 25 Mg Tablet PO 25 mg Q12HR PRN Administration agitation Quetiapine Fumarate 50 mg 05/20/25 18:00 05/21/25 17:34 Quetiapine Fumarate 25 Mg Tablet PO 50 mg EVENING [facility]INA Administration Tamsulosin HCl 0.4 mg 05/20/25 21:00 05/21/25 21:44 Tamsulosin Hcl 0.4 Mg Capsule PO 0.4 mg HS JUSTINA Administration Radiology Results: ITS Impressions Chest/Abdomen/Pelvis CT 05/09/25 12:34 IMPRESSION: 1. Prostatomegaly with surrounding from trace stranding also extending around the bilateral seminal vesicles which raises concern for prostatitis. 2. No acute cardiopulmonary disease or other acute intra-abdominal/pelvic process. Chest X-Ray 05/19/25 11:58 IMPRESSION: No acute process. Head CT 05/19/25 12:13 IMPRESSION: 1. No significant interval change. Bilateral lacunar infarcts, as detailed above. 2. Other chronic findings including parenchymal atrophy and chronic small vessel ischemic changes. Labs Labs: Laboratory Results - last 24 hr 05/22/25 04:27 WBC 7.5 RBC 2.74 L Hgb 8.3 L Hct 25.9 L MCV 94.5 MCH 30.3 MCHC 32.0 RDW 15.2 H Plt Count 503 H MPV 8.3 Immature Gran % (Auto) 0.8 H Neut % (Auto) 69.7 Lymph % (Auto) 16.3 L [place] % (Auto) 8.6 H Eos % (Auto) 3.7 Baso % (Auto) 0.9 Lymph # (Auto) 1.22 [place] # (Auto) 0.6 Eos # (Auto) 0.3 Baso # (Auto) 0.1 Abs Immat Gran (auto) 0.06 H Absolute Neuts (auto) 5.2 Absolute Nucleated RBC 0.000 Nucleated RBC % 0.0 Sodium 135 L Potassium 3.8 Chloride 105 Carbon Dioxide 29 Anion Gap 1 L BUN 8 L Creatinine 0.94 Estim Creat Clear Calc 60 Estimated GFR > 60 Glucose 107 Calcium 8.8 Total Bilirubin 0.4 AST 27 ALT 13 Alkaline Phosphatase 85 Total Protein 5.7 L Albumin 3.1 L Quality VTE Prophylaxis VTE prophylaxis: pharmacologic ordered
[2025-05-22 09:30] VITALS: PULSE 80
[2025-05-22] MEDS: APIXABAN 5 MG TABLET PO (09:30)
[2025-05-22] MEDS: LACOSAMIDE (*CRX) 200 MG TABLET PO (09:30)
[2025-05-22] MEDS: DONEPEZIL HCL 10 MG TABLET PO (09:30)
[2025-05-22] MEDS: CIPROFLOXACIN 500 MG TAB PO (09:30)
[2025-05-22] MEDS: buPROPion HCL XL (24 HR) 150 MG TABCR PO (09:30)
[2025-05-22] MEDS: ATORVASTATIN 40 MG TABLET PO (09:30)
[2025-05-22] MEDS: METOPROLOL SUCCINATE EXT REL 50 MG TABCR PO (09:30)
[2025-05-22] MEDS: IRON SUCROSE COMPLEX 200 MG, IRON SUCROSE COMPLEX 100 MG in SODIUM CHLORIDE 0.9% IV 250 ML 176.67 MG IVPB (10:00)
--- NOTE | 2025-05-22 11:15 | WPDONCPN ---
Progress Note: A&P Assessment and Plan (1) Thrombocytosis: Code(s): D75.839 - Thrombocytosis, unspecified Status: Acute Assessment and Plan: Patient with acute thrombocytosis started on 05/15/25. This is likely reactive thrombocytosis in the setting of infection (UTI/prostatitis). Patient also had hematuria and Iron panel is indicative of Iron deficiency. Patient is on oral iron (Ferrous gluconate) but may not be sufficient to replete. A repeat Iron studies with ferritin showed iron saturations low and ferritin further decreased. Patient received 300mg of IV iron 05/21/25. Recommend two more days of venofer 300mg for total of 900mg. Infectious reactive thrombocytosis usually 3-4 weeks post infection and see platelets back to baseline. Additionally, ciprofloxacin is also reported to cause thrombocytosis in rare patients in post marketing surveillance and is in FDA drug label. No additional work up other than what ordered. Platelet count is 503 K. Will continue to follow. Subjective Date/time seen: 05/22/25 11:15 Interval history: Patient seen and examined at bedside. Viera in place draining dark brown urine Review of Systems Review of Systems Patient is more cohesive with conversation but still not able to show rational thoughts. States that he feels OK. No fevers, chills, or night sweats. Denies chest pain, cough or hemoptysis. Denies abdominal pain, n/v/d. Rest of ROS is negative Exam Narrative: General: ill-appearing, no acute distress Eyes: EOMI ENT: neck supple Cardiovascular: Regular rate and rhythm Respiratory: CTAB Gastrointestinal: Soft, non tender Genitourinary: Viera catheter draining clear urine Musculoskeletal: No edema Skin: warm, dry Neuro: No focal deficits Objective Data Vital Signs Vital Signs: Vital Signs - 24 hr 05/21/25 20:00 05/21/25 23:39 05/22/25 08:00 Temperature 36.5 C Pulse Rate 81 Respiratory Rate 18 Blood Pressure 129/85 Pulse Oximetry 100 Oxygen Delivery Room Air Room Air 05/22/25 09:30 Temperature Pulse Rate 80 Respiratory Rate Blood Pressure Pulse Oximetry Oxygen Delivery Intake/Output Intake/Output: Intake & Output 05/19/25 05/20/25 05/21/25 05/22/25 23:59 23:59 23:59 23:59 Intake Total 830 1470 2640 580 Output Total 800 190 004 6215 Balance 30 570 2550 -600 Meds/Results Medications: Active Medications Generic Name Dose Route Start Last Admin Trade Name Freq PRN Reason Stop Dose Admin Acetaminophen 650 mg 05/09/25 13:23 05/21/25 21:43 Acetaminophen 325 Mg Tablet PO 650 mg Q6H PRN Administration Pain Rated 1-3 Apixaban 5 mg 05/22/25 09:15 05/22/25 09:30 Apixaban 5 Mg Tablet PO 5 mg Q12HR JUSTINA Administration Atorvastatin Calcium 40 mg 05/10/25 09:00 05/22/25 09:30 Atorvastatin 40 Mg Tablet PO 40 mg DAILY [facility] Administration Bupropion HCl 150 mg 05/10/25 09:00 05/22/25 09:30 Bupropion Hcl Xl (24 Hr) 150 Mg Tabcr PO 150 mg DAILY [facility] Administration Ciprofloxacin 500 mg 05/13/25 21:00 05/22/25 09:30 Ciprofloxacin 500 Mg Tab PO 05/27/25 20:59 500 mg Q12HR JUSTINA Administration Donepezil HCl 10 mg 05/10/25 09:00 05/22/25 09:30 Donepezil Hcl 10 Mg Tablet PO 10 mg DAILY [facility] Administration Ferrous Gluconate 324 mg 05/18/25 12:00 05/20/25 13:56 Ferrous Gluconate 324 Mg Tablet PO Not Given On Hold: 05/21/25 06:59 DAILY@1200 [facility] Hydralazine HCl 10 mg 05/13/25 05:42 05/13/25 05:59 Hydralazine Hcl 20 Mg/Ml Vial IV PUSH 10 mg Q4H PRN Administration SYSTOLIC BP >160 Iron Sucrose 200 mg/ Iron 265 mls @ 176.667 mls/hr 05/21/25 09:00 05/21/25 08:32 Sucrose 100 mg/ Sodium IVPB 05/24/25 08:59 176.67 mls/hr Chloride DAILY [facility] Administration Lacosamide 200 mg 05/09/25 22:35 05/22/25 09:30 Lacosamide (*Crx) 200 Mg Tablet PO 200 mg Q12HR [facility] Administration Lisinopril 40 mg 05/10/25 09:00 05/22/25 09:31 Lisinopril 20 Mg Tablet PO 40 mg QAM [facility] Administration Metoprolol Succinate 50 mg 05/10/25 09:00 05/22/25 09:30 Metoprolol Succinate Ext Rel 50 Mg Tabcr PO 50 mg DAILY [facility] Administration Ondansetron HCl 4 mg 05/09/25 13:24 Ondansetron Hcl Odt 4 Mg Tablet PO Q4H PRN Nausea And Vomiting Ondansetron HCl 4 mg 05/11/25 12:01 Ondansetron Inj 4 Mg/2 Ml Vial IV PUSH ONCE PRN Nausea Quetiapine Fumarate 25 mg 05/20/25 14:03 05/21/25 21:44 Quetiapine Fumarate 25 Mg Tablet PO 25 mg Q12HR PRN Administration agitation Quetiapine Fumarate 50 mg 05/20/25 18:00 05/21/25 17:34 Quetiapine Fumarate 25 Mg Tablet PO 50 mg EVENING JUSTINA Administration Tamsulosin HCl 0.4 mg 05/20/25 21:00 05/21/25 21:44 Tamsulosin Hcl 0.4 Mg Capsule PO 0.4 mg HS JUSTINA Administration Radiology Results: ITS Impressions Chest/Abdomen/Pelvis CT 05/09/25 12:34 IMPRESSION: 1. Prostatomegaly with surrounding from trace stranding also extending around the bilateral seminal vesicles which raises concern for prostatitis. 2. No acute cardiopulmonary disease or other acute intra-abdominal/pelvic process. Chest X-Ray 05/19/25 11:58 IMPRESSION: No acute process. Head CT 05/19/25 12:13 IMPRESSION: 1. No significant interval change. Bilateral lacunar infarcts, as detailed above. 2. Other chronic findings including parenchymal atrophy and chronic small vessel ischemic changes. Labs Labs: Laboratory Results - last 24 hr 05/22/25 04:27 WBC 7.5 RBC 2.74 L Hgb 8.3 L Hct 25.9 L MCV 94.5 MCH 30.3 MCHC 32.0 RDW 15.2 H Plt Count 503 H MPV 8.3 Immature Gran % (Auto) 0.8 H Neut % (Auto) 69.7 Lymph % (Auto) 16.3 L [place] % (Auto) 8.6 H Eos % (Auto) 3.7 Baso % (Auto) 0.9 Lymph # (Auto) 1.22 [place] # (Auto) 0.6 Eos # (Auto) 0.3 Baso # (Auto) 0.1 Abs Immat Gran (auto) 0.06 H Absolute Neuts (auto) 5.2 Absolute Nucleated RBC 0.000 Nucleated RBC % 0.0 Sodium 135 L Potassium 3.8 Chloride 105 Carbon Dioxide 29 Anion Gap 1 L BUN 8 L Creatinine 0.94 Estim Creat Clear Calc 60 Estimated GFR > 60 Glucose 107 Calcium 8.8 Total Bilirubin 0.4 AST 27 ALT 13 Alkaline Phosphatase 85 Total Protein 5.7 L Albumin 3.1 L
--- NOTE | 2025-05-22 11:57 | P.PNUR_ITS ---
Progress Note: A&P Assessment and Plan (1) Urinary retention: Code(s): R33.9 - Retention of urine, unspecified Status: Acute Assessment and Plan: urine draining clear void trial in 1 week ok to resume anticoagulation pt unable to perform self CIC, continue flomax monitor and re-direct to make sure he doesnt self extract meyer cath Subjective Subjective Date/Time Seen: 05/22/25 11:57 Interval history: no complaints with meyer. Denies hematuria, rare bladder spasms. Review of Systems Review of Systems: All systems reviewed & are unremarkable except as noted in HPI and below Exam Narrative: General: The patient is well-developed in no acute distress. Appears comfortable on exam. HEENT: Normocephalic, normal ear and nose structures Skin: Warm, dry, with no lesions seen on visible skin Lungs: Normal respiratory effort Heart: Appears well perfused Abdomen: Nondistended Suprapubic area: Nondistended Extremities: Upper with no deformities. Lower - no edema Neurologic: The patient is oriented to person. Easily redirected. Normal mood and affect. Urinary Catheter: Urinary Catheter: patent and draining and urine clear Objective Data Vital Signs Vital Signs: Vital Signs - 24 hr 05/21/25 20:00 05/21/25 23:39 05/22/25 08:00 Temperature 36.5 C Pulse Rate 81 Respiratory Rate 18 Blood Pressure 129/85 Pulse Oximetry 100 Oxygen Delivery Room Air Room Air 05/22/25 09:30 Temperature Pulse Rate 80 Respiratory Rate Blood Pressure Pulse Oximetry Oxygen Delivery Intake/Output Intake/Output: Intake & Output 05/19/25 05/20/25 05/21/25 05/22/25 23:59 23:59 23:59 23:59 Intake Total 830 1470 2905 580 Output Total 800 878 149 3430 Balance 30 570 2004 -920 Meds/Results Medications: Active Medications Generic Name Dose Route Start Last Admin Trade Name Freq PRN Reason Stop Dose Admin Acetaminophen 650 mg 05/09/25 13:23 05/21/25 21:43 Acetaminophen 325 Mg Tablet PO 650 mg Q6H PRN Administration Pain Rated 1-3 Apixaban 5 mg 05/22/25 09:15 05/22/25 09:30 Apixaban 5 Mg Tablet PO 5 mg Q12HR JUSTINA Administration Atorvastatin Calcium 40 mg 05/10/25 09:00 05/22/25 09:30 Atorvastatin 40 Mg Tablet PO 40 mg DAILY JUST[facility] Administration Bupropion HCl 150 mg 05/10/25 09:00 05/22/25 09:30 Bupropion Hcl Xl (24 Hr) 150 Mg Tabcr PO 150 mg DAILY [facility] Administration Ciprofloxacin 500 mg 05/13/25 21:00 05/22/25 09:30 Ciprofloxacin 500 Mg Tab PO 05/27/25 20:59 500 mg Q12HR [facility]INA Administration Donepezil HCl 10 mg 05/10/25 09:00 05/22/25 09:30 Donepezil Hcl 10 Mg Tablet PO 10 mg DAILY JUST[facility] Administration Ferrous Gluconate 324 mg 05/18/25 12:00 05/20/25 13:56 Ferrous Gluconate 324 Mg Tablet PO Not Given On Hold: 05/21/25 06:59 DAILY@1200 COUNTS INCLUDE 234 BEDS AT THE [facility] Hydralazine HCl 10 mg 05/13/25 05:42 05/13/25 05:59 Hydralazine Hcl 20 Mg/Ml Vial IV PUSH 10 mg Q4H PRN Administration SYSTOLIC BP >160 Iron Sucrose 200 mg/ Iron 265 mls @ 176.667 mls/hr 05/21/25 09:00 05/22/25 10:00 Sucrose 100 mg/ Sodium IVPB 05/24/25 08:59 176.67 mls/hr Chloride DAILY COUNTS INCLUDE 234 BEDS AT [facility] Administration Lacosamide 200 mg 05/09/25 22:35 05/22/25 09:30 Lacosamide (*Crx) 200 Mg Tablet PO 200 mg Q12HR [facility] Administration Lisinopril 40 mg 05/10/25 09:00 05/22/25 09:31 Lisinopril 20 Mg Tablet PO 40 mg QAM [facility] Administration Metoprolol Succinate 50 mg 05/10/25 09:00 05/22/25 09:30 Metoprolol Succinate Ext Rel 50 Mg Tabcr PO 50 mg DAILY [facility] Administration Ondansetron HCl 4 mg 05/09/25 13:24 Ondansetron Hcl Odt 4 Mg Tablet PO Q4H PRN Nausea And Vomiting Ondansetron HCl 4 mg 05/11/25 12:01 Ondansetron Inj 4 Mg/2 Ml Vial IV PUSH ONCE PRN Nausea Quetiapine Fumarate 25 mg 05/20/25 14:03 05/21/25 21:44 Quetiapine Fumarate 25 Mg Tablet PO 25 mg Q12HR PRN Administration agitation Quetiapine Fumarate 50 mg 05/20/25 18:00 05/21/25 17:34 Quetiapine Fumarate 25 Mg Tablet PO 50 mg EVENING JUSTINA Administration Tamsulosin HCl 0.4 mg 05/20/25 21:00 05/21/25 21:44 Tamsulosin Hcl 0.4 Mg Capsule PO 0.4 mg HS JUST[facility] Administration Radiology Results: ITS Impressions Chest/Abdomen/Pelvis CT 05/09/25 12:34 IMPRESSION: 1. Prostatomegaly with surrounding from trace stranding also extending around the bilateral seminal vesicles which raises concern for prostatitis. 2. No acute cardiopulmonary disease or other acute intra-abdominal/pelvic process. Chest X-Ray 05/19/25 11:58 IMPRESSION: No acute process. Head CT 05/19/25 12:13 IMPRESSION: 1. No significant interval change. Bilateral lacunar infarcts, as detailed above. 2. Other chronic findings including parenchymal atrophy and chronic small vessel ischemic changes. Labs Labs: Laboratory Results - last 24 hr 05/22/25 04:27 WBC 7.5 RBC 2.74 L Hgb 8.3 L Hct 25.9 L MCV 94.5 MCH 30.3 MCHC 32.0 RDW 15.2 H Plt Count 503 H MPV 8.3 Immature Gran % (Auto) 0.8 H Neut % (Auto) 69.7 Lymph % (Auto) 16.3 L [place] % (Auto) 8.6 H Eos % (Auto) 3.7 Baso % (Auto) 0.9 Lymph # (Auto) 1.22 [place] # (Auto) 0.6 Eos # (Auto) 0.3 Baso # (Auto) 0.1 Abs Immat Gran (auto) 0.06 H Absolute Neuts (auto) 5.2 Absolute Nucleated RBC 0.000 Nucleated RBC % 0.0 Sodium 135 L Potassium 3.8 Chloride 105 Carbon Dioxide 29 Anion Gap 1 L BUN 8 L Creatinine 0.94 Estim Creat Clear Calc 60 Estimated GFR > 60 Glucose 107 Calcium 8.8 Total Bilirubin 0.4 AST 27 ALT 13 Alkaline Phosphatase 85 Total Protein 5.7 L Albumin 3.1 L
[2025-05-22 14:08] VITALS: BP 129/77; PULSE 68; RESP 18; TEMP 37; O2SAT 100
[2025-05-23 04:49] LABS: Hematocrit 29.0 % (42.0-52.0); Hemoglobin 9.4 g/dL (14.0-18.0); Immature Granulocyte Percent A 0.6 % (0-0.5); Lymphocytes Absolute Auto 1.01 K/mm3 (0.9-3.2); Mean Corpuscular HGB Conc 32.4 g/dl (32-36); Mean Corpuscular Hemoglobin 30.7 pg (26-34); Mean Corpuscular Volume 94.8 fl (80-100); Nucleated Red Blood Cells Absolute Auto 0.000 K/mm3 (0.0-0.012); Nucleated Red Blood Cells Perc 0.0 % (0.0-0.2); Platelet Count Result 564 k/mm3 (150-375); Red Blood Count 3.06 M/mm3 (4.6-6.20); White Blood Count 10.8 K/mm3 (4.5-10.0)
[2025-05-23 05:10] LABS: Alanine Aminotransferase 16 U/L (6-50); Albumin Level 3.7 g/dL (3.5-5.1); Alkaline Phosphatase 108 U/L (38-126); Anion Gap 8 mmol/L (4-12); Aspartate Amino Transferase 32 U/L (17-59); Bilirubin,Total 0.6 mg/dL (0.2-1.3); Blood Urea Nitrogen 7 mg/dL (9-20); Calcium 9.1 mg/dL (8.4-10.2); Carbon Dioxide 29 mmol/L (22-30); Chloride 102 mmol/L (98-107); Estimated CRCL calculation 70 ml/min; Estimated Glomerular Filt Rate > 60; Glucose 119 mg/dL (65-110); Potassium 3.5 mmol/L (3.4-5.0); Sodium 139 mmol/L (137-145); Total Protein 6.7 g/dL (6.3-8.2)
--- NOTE | 2025-05-23 06:56 | P.PNIM_ITS ---
Progress Note: A&P Assessment and Plan (1) AMS (altered mental status): Qualifiers: Altered mental status type: delirium Qualified Code(s): R41.0 - Disorientation, unspecified Code(s): R41.82 - Altered mental status, unspecified Status: Acute Assessment and Plan: -Head CT, 05/09 with no acute process, old lacunar infarcts in the R basal ganglia and coronal radiata of the bilateral frontal and right parietal lobes. Age-related changes. -recent dx of CVA on 04/23. MRI showed a small acute infarct at the genu of the right corpus callosum and several old lacunar infarcts at the right basal ganglia and right frontal and parietal lobe dobbins radiata. -developed agitation during last admission, thought to be secondary to CVA vs. 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 -initially started on Zyprexa, concern for EPS noted 05/19, psych reconsulted and recommended switching to Seroquel. Patient still with intermittent agitation requiring restraints. Discussed with psych and will change to Seroquel XR 100mg in the evening, continue Seroquel 25mg BID PRN. (2) Urinary retention: Code(s): R33.9 - Retention of urine, unspecified Status: Acute Assessment and Plan: - urinary retention noted on admission. Required Meyer catheter insertion. Patient became agitated and pulled out Meyer which required stat cystoscopy with clot evacuation and complex Meyer catheter insertion 05/11. During operation, significant blood clot with obvious injury to the membranous urethra, [address] placed. - voiding trial 9/5, patient failed and required straight cath. Urology recommended catheter reinsertion 05/21. OK to restart Eliquis. (3) Prostatitis: Qualifiers: Prostatitis type: acute Qualified Code(s): N41.0 - Acute prostatitis Code(s): N41.9 - Inflammatory disease of prostate, unspecified Status: Acute Assessment and Plan: -CT showed indicators of prostatitis - UA consistent with infection -Urine culture was collected, but apparently never received by [facility] -urology following -Started on Ciprofloxacin IV switched to Oral on 05/13, end date 05/27 (4) Anemia: Qualifiers: Anemia type: unspecified type Qualified Code(s): D64.9 - Anemia, unspecified Code(s): D64.9 - Anemia, unspecified Status: Acute Assessment and Plan: -Hgb 12.3 upon admission on 05/09. 15.7 at discharge on 04/29. -iron and iron saturation low - acute drop likely secondary to hematuria in setting of Meyer trauma -Transfuse if <7 -Trend H&H -Of note, recently started on Eliquis and Plavix secondary to acute stroke earlier this month -05/23: Hgb 9.4. Improving. - oncology following and recommended IV Venofer - Hgb stable. Eliquis restarted 05/22. Monitor for signs of bleeding. (5) Sepsis: Code(s): A41.9 - Sepsis, unspecified organism Status: Resolved Assessment and Plan: -sepsis present on admission as evidenced by tachycardia, tachypnea, leukocytosis -source: UTI with possible prostatitis -management of UTI as below - Urine culture was sent however apparently never received by [facility] -WBC down from 27.9 on admission, now normalized -Blood cultures negative for growth - final - sepsis resolved (6) History of CVA (cerebrovascular accident): Code(s): Z86.73 - Personal history of transient ischemic attack (TIA), and cerebral infarction without residual deficits Status: Chronic Assessment and Plan: -Brain MRI, 04/23 with small acute infarct at the genu of the right corpus callos um, several old lacunar infarcts, multiple small foci of susceptibility artifact scattered throughout the brain including the cerebral hemispheres, midbrain and cerebellum consistent with chronic microhemorrhage typically seen in the setting of hypertension but can also be seen with amyloid angiopathy. -worsening AMS likely secondary to UTI, however could be sequela of recent CVA. started on abx, monitor response. -discussed with Dr. Miguel falk to stop ASA, Plavix as patient was found to have Afib on last admission. Eliquis held due to Meyer trauma. Restarted 05/22. - Neurology reconsulted due to episode of altered consciousness 05/19, suspect vasovagal event (7) Seizure disorder: Code(s): G40.909 - Epilepsy, unspecified, not intractable, without status epilepticus Status: Chronic Assessment and Plan: -EEG 05/21 unremarkable -continue lacosamide (switched from Keppra due to agitation on last admit) (8) Atrial fibrillation: Qualifiers: Atrial fibrillation type: unspecified chronic Qualified Code(s): I48.20 - Chronic atrial fibrillation, unspecified Code(s): I48.91 - Unspecified atrial fibrillation Status: Chronic Assessment and Plan: -continue metoprolol, Eliquis (9) Hypertension: Qualifiers: Hypertension type: essential hypertension Qualified Code(s): I10 - Essential (primary) hypertension Code(s): I10 - Essential (primary) hypertension Status: Chronic Assessment and Plan: -chronic -continue home medications: Lisinopril, metoprolol -monitor (10) Thrombocytosis: Code(s): D75.839 - Thrombocytosis, unspecified Status: Acute Assessment and Plan: -admit Plts 317, trended up to peak 617 -Could be 2/2 underlying anemia, prostatitis, UTI -No splenomegaly on exam -consulted hematology, suspect reactive thrombocytosis, no further work-up necessary - improving - monitor CBC Plan DVT Prophylaxis: Eliquis Disposition: SNF, hopefully 1-2 days Code Status: Full code Subjective Date/time seen: 05/23/25 06:56 Interval history: Patient seen and examined at bedside. Required restraints overnight. Discussed with applied psychology teacher, med changes as below. Patient is pleasant and cooperative this AM and per PT did very well with therapy this AM. Review of Systems Review of Systems: All systems reviewed & are unremarkable except as noted in HPI and below Exam Narrative: General: NAD Eyes: EOMI ENT: neck supple Cardiovascular: Regular rate and rhythm Respiratory: Clear to auscultation, respirations even and unlabored on RA Gastrointestinal: Soft, non tender Genitourinary: no suprapubic tenderness, meyer catheter draining clear yellow urine Musculoskeletal: No edema Skin: warm, dry Neuro: alert and oriented x4. Psych: Mood appropriate Objective Data Vital Signs Vital Signs: Vital Signs - 24 hr 05/22/25 08:00 05/22/25 09:30 05/22/25 14:08 Temperature 98.6 F Pulse Rate 80 68 Respiratory Rate 18 Blood Pressure 129/77 Pulse Oximetry 100 Oxygen Delivery Room Air 05/22/25 21:41 Temperature Pulse Rate Respiratory Rate Blood Pressure Pulse Oximetry Oxygen Delivery Room Air Intake/Output Intake/Output: Intake & Output 05/20/25 05/21/25 05/22/25 05/23/25 23:59 23:59 23:59 23:59 Intake Total 1470 2905 845 100 Output Total 276 874 7789 1400 Balance [phone] -[id number] -1712 Meds/Results Medications: Active Medications Generic Name Dose Route Start Last Admin Trade Name Freq PRN Reason Stop Dose Admin Acetaminophen 650 mg 05/09/25 13:23 05/21/25 21:43 Acetaminophen 325 Mg Tablet PO 650 mg Q6H PRN Administration Pain Rated 1-3 Apixaban 5 mg 05/22/25 09:15 05/22/25 23:49 Apixaban 5 Mg Tablet PO Not Given Q12HR JUSTINA Atorvastatin Calcium 40 mg 05/10/25 09:00 05/22/25 09:30 Atorvastatin 40 Mg Tablet PO 40 mg DAILY JUSTINA Administration Bupropion HCl 150 mg 05/10/25 09:00 05/22/25 09:30 Bupropion Hcl Xl (24 Hr) 150 Mg Tabcr PO 150 mg DAILY JUSTINA Administration Ciprofloxacin 500 mg 05/13/25 21:00 05/22/25 23:49 Ciprofloxacin 500 Mg Tab PO 05/27/25 20:59 Not Given Q12HR JUSTINA Donepezil HCl 10 mg 05/10/25 09:00 05/22/25 09:30 Donepezil Hcl 10 Mg Tablet PO 10 mg DAILY JUSTINA Administration Ferrous Gluconate 324 mg 05/18/25 12:00 05/20/25 13:56 Ferrous Gluconate 324 Mg Tablet PO Not Given On Hold: 05/21/25 06:59 DAILY@1200 [facility] Hydralazine HCl 10 mg 05/13/25 05:42 05/13/25 05:59 Hydralazine Hcl 20 Mg/Ml Vial IV PUSH 10 mg Q4H PRN Administration SYSTOLIC BP >160 Iron Sucrose 200 mg/ Iron 265 mls @ 176.667 mls/hr 05/21/25 09:00 05/22/25 11:30 Sucrose 100 mg/ Sodium IVPB 05/24/25 08:59 Infused Chloride DAILY [facility] Infusion Lacosamide 200 mg 05/09/25 22:35 05/22/25 23:49 Lacosamide (*Crx) 200 Mg Tablet PO Not Given Q12HR JUSTINA Lisinopril 40 mg 05/10/25 09:00 05/22/25 09:31 Lisinopril 20 Mg Tablet PO 40 mg QAM JUSTINA Administration Metoprolol Succinate 50 mg 05/10/25 09:00 05/22/25 09:30 Metoprolol Succinate Ext Rel 50 Mg Tabcr PO 50 mg DAILY [facility] Administration Miscellaneous Information 1 each 05/23/25 00:01 Please Renew Cipro_. Per [employer] Procedure, It Will Discontinue If Not Renewed XX 06/22/25 00:00 CLARIFY JUSTINA Ondansetron HCl 4 mg 05/09/25 13:24 Ondansetron Hcl Odt 4 Mg Tablet PO Q4H PRN Nausea And Vomiting Ondansetron HCl 4 mg 05/11/25 12:01 Ondansetron Inj 4 Mg/2 Ml Vial IV PUSH ONCE PRN Nausea Quetiapine Fumarate 25 mg 05/20/25 14:03 05/22/25 12:25 Quetiapine Fumarate 25 Mg Tablet PO 25 mg Q12HR PRN Administration agitation Quetiapine Fumarate 50 mg 05/20/25 18:00 05/22/25 18:02 Quetiapine Fumarate 25 Mg Tablet PO 50 mg EVENING JUSTINA Administration Tamsulosin HCl 0.4 mg 05/20/25 21:00 05/22/25 23:49 Tamsulosin Hcl 0.4 Mg Capsule PO Not Given HS [facility] Radiology Results: ITS Impressions Chest/Abdomen/Pelvis CT 05/09/25 12:34 IMPRESSION: 1. Prostatomegaly with surrounding from trace stranding also extending around the bilateral seminal vesicles which raises concern for prostatitis. 2. No acute cardiopulmonary disease or other acute intra-abdominal/pelvic process. Chest X-Ray 05/19/25 11:58 IMPRESSION: No acute process. Head CT 05/19/25 12:13 IMPRESSION: 1. No significant interval change. Bilateral lacunar infarcts, as detailed above. 2. Other chronic findings including parenchymal atrophy and chronic small vessel ischemic changes. Labs Labs: Laboratory Results - last 24 hr 05/23/25 04:17 WBC 10.8 H RBC 3.06 L Hgb 9.4 L Hct 29.0 L MCV 94.8 MCH 30.7 MCHC 32.4 RDW 15.4 H Plt Count 564 H MPV 8.4 Immature Gran % (Auto) 0.6 H Neut % (Auto) 80.6 H Lymph % (Auto) 9.4 L [place] % (Auto) 6.1 Eos % (Auto) 2.3 Baso % (Auto) 1.0 Lymph # (Auto) 1.01 [place] # (Auto) 0.7 H Eos # (Auto) 0.3 Baso # (Auto) 0.1 Abs Immat Gran (auto) 0.07 H Absolute Neuts (auto) 8.7 H Absolute Nucleated RBC 0.000 Nucleated RBC % 0.0 Sodium 139 Potassium 3.5 Chloride 102 Carbon Dioxide 29 Anion Gap 8 BUN 7 L Creatinine 0.80 Estim Creat Clear Calc 70 Estimated GFR > 60 Glucose 119 H Calcium 9.1 Total Bilirubin 0.6 AST 32 ALT 16 Alkaline Phosphatase 108 Total Protein 6.7 Albumin 3.7 Quality VTE Prophylaxis VTE prophylaxis: pharmacologic ordered
--- NOTE | 2025-05-23 09:47 | WPDPNPSYCH ---
Progress Note: A&P Assessment and Plan (1) AMS (altered mental status): Code(s): R41.82 - Altered mental status, unspecified Status: Acute Assessment and Plan: Increase quetiapine XR to 100 mg PO HS for improved baseline coverage. Continue quetiapine IR 25 mg PO PRN agitation. Monitor for oversedation, orthostatic hypotension, QTc prolongation. Avoid high-potency antipsychotics (haloperidol, risperidone) given EPS concern. Continue aggressive treatment of underlying infection and supportive delirium measures (optimize sleep/wake cycle, hydration, minimize deliriogenic meds). Establish a routine: A predictable daily schedule for waking, meals, and bedtime helps regulate the body's internal clock and reduces evening confusion. Optimize light exposure: Maximizing natural light exposure during the day can improve sleep-wake cycles. At night, use soft, low-level lighting and a nightlight to prevent agitation caused by shadows or darkness. Promote daytime activity: Physical activity during the day, such as a walk, can help promote better sleep at night. However, avoid overstimulation in the evening. Reduce evening stimulation: Minimize noise, clutter, and stimulating activities like television in the evening. Creating a calm environment can help ease the transition to bedtime. Engage in calming activities: Distract the person with a quiet activity they enjoy, such as listening to soothing music, looking through a photo album, or folding laundry Identify unmet needs: Perform a thorough assessment to understand the cause of the behavior, focusing on physiological and psychological triggers. Modify the environment: Create a calm, safe, and well-lit space. Reducing noise and providing familiar objects can help. Provide individualized care: Care should be consistent and tailored to the patient's needs and communication style. Involve family members to learn the patient's routines and preferences. Utilize de-escalation techniques: Use a calm voice, gentle touch (if appropriate), and offer reassurance. Avoid confrontation or arguing. Engage the patient: Offer redirection with simple, engaging activities or sensory stimulation to reduce restlessness. Multidisciplinary team: Use a team approach involving nurses, doctors, and specialists to manage the patient's needs. Review of Systems Psychiatric: Psychiatric: Reports behavioral changes Comments: patient denied any complaints. patient denied irritability. he denied issues with sleep or confusion. Hospital staff c/o agitation at night. Exam Psych: Speech and movement: Normal speech and movement present Affect: normal affect Attitude: cooperative Thought process: Normal thought process present Thought content: Yes Normal thought content present Other: Appearance/Behavior: Calm, cooperative Mood/Affect: Happy; affect congruent Thought Process: Linear, goal-directed Thought Content: Denies suicidal or homicidal ideation. No delusions or hallucinations. Orientation: Oriented to place; partially oriented to time (confused about date and month) Memory: Able to state date of (reported as 53) Insight/Judgment: Limited; poor awareness of temporal disorientation Objective Data Vital Signs Vital Signs: Vital Signs - 24 hr 05/22/25 14:08 05/22/25 21:41 Temperature 98.6 F Pulse Rate 68 Respiratory Rate 18 Blood Pressure 129/77 Pulse Oximetry 100 Oxygen Delivery Room Air Intake/Output Intake/Output: Intake & Output 05/20/25 05/21/25 05/22/25 05/23/25 23:59 23:59 23:59 23:59 Intake Total 1470 2905 845 100 Output Total 233 364 1353 1400 Balance [phone] -[phone] Meds/Results Medications: Active Medications Generic Name Dose Route Start Last Admin Trade Name Freq PRN Reason Stop Dose Admin Acetaminophen 650 mg 05/09/25 13:23 05/21/25 21:43 Acetaminophen 325 Mg Tablet PO 650 mg Q6H PRN Administration Pain Rated 1-3 Apixaban 5 mg 05/22/25 09:15 05/22/25 23:49 Apixaban 5 Mg Tablet PO Not Given Q12HR JUSTINA Atorvastatin Calcium 40 mg 05/10/25 09:00 05/22/25 09:30 Atorvastatin 40 Mg Tablet PO 40 mg DAILY [facility] Administration Bupropion HCl 150 mg 05/10/25 09:00 05/22/25 09:30 Bupropion Hcl Xl (24 Hr) 150 Mg Tabcr PO 150 mg DAILY [facility] Administration Ciprofloxacin 500 mg 05/13/25 21:00 05/22/25 23:49 Ciprofloxacin 500 Mg Tab PO 05/27/25 20:59 Not Given Q12HR JUSTINA Donepezil HCl 10 mg 05/10/25 09:00 05/22/25 09:30 Donepezil Hcl 10 Mg Tablet PO 10 mg DAILY [facility] Administration Ferrous Gluconate 324 mg 05/18/25 12:00 05/20/25 13:56 Ferrous Gluconate 324 Mg Tablet PO Not Given On Hold: 05/21/25 06:59 DAILY@1200 [facility] Hydralazine HCl 10 mg 05/13/25 05:42 05/13/25 05:59 Hydralazine Hcl 20 Mg/Ml Vial IV PUSH 10 mg Q4H PRN Administration SYSTOLIC BP >160 Iron Sucrose 200 mg/ Iron 265 mls @ 176.667 mls/hr 05/21/25 09:00 05/22/25 11:30 Sucrose 100 mg/ Sodium IVPB 05/24/25 08:59 Infused Chloride DAILY [facility] Infusion Lacosamide 200 mg 05/09/25 22:35 05/22/25 23:49 Lacosamide (*Crx) 200 Mg Tablet PO Not Given Q12HR [facility] Lisinopril 40 mg 05/10/25 09:00 05/22/25 09:31 Lisinopril 20 Mg Tablet PO 40 mg QAM [facility]INA Administration Metoprolol Succinate 50 mg 05/10/25 09:00 05/22/25 09:30 Metoprolol Succinate Ext Rel 50 Mg Tabcr PO 50 mg DAILY [facility] Administration Miscellaneous Information 1 each 05/23/25 00:01 Please Renew Cipro_. Per [employer] Procedure, It Will Discontinue If Not Renewed XX 06/22/25 00:00 CLARIFY JUSTINA Ondansetron HCl 4 mg 05/09/25 13:24 Ondansetron Hcl Odt 4 Mg Tablet PO Q4H PRN Nausea And Vomiting Ondansetron HCl 4 mg 05/11/25 12:01 Ondansetron Inj 4 Mg/2 Ml Vial IV PUSH ONCE PRN Nausea Quetiapine Fumarate 25 mg 05/20/25 14:03 05/22/25 12:25 Quetiapine Fumarate 25 Mg Tablet PO 25 mg Q12HR PRN Administration agitation Quetiapine Fumarate 50 mg 05/20/25 18:00 05/22/25 18:02 Quetiapine Fumarate 25 Mg Tablet PO 50 mg EVENING [facility] Administration Tamsulosin HCl 0.4 mg 05/20/25 21:00 05/22/25 23:49 Tamsulosin Hcl 0.4 Mg Capsule PO Not Given HS [facility] Radiology Results: ITS Impressions Chest/Abdomen/Pelvis CT 05/09/25 12:34 IMPRESSION: 1. Prostatomegaly with surrounding from trace stranding also extending around the bilateral seminal vesicles which raises concern for prostatitis. 2. No acute cardiopulmonary disease or other acute intra-abdominal/pelvic process. Chest X-Ray 05/19/25 11:58 IMPRESSION: No acute process. Head CT 05/19/25 12:13 IMPRESSION: 1. No significant interval change. Bilateral lacunar infarcts, as detailed above. 2. Other chronic findings including parenchymal atrophy and chronic small vessel ischemic changes. Labs Labs: Laboratory Results - last 24 hr 05/23/25 04:17 WBC 10.8 H RBC 3.06 L Hgb 9.4 L Hct 29.0 L MCV 94.8 MCH 30.7 MCHC 32.4 RDW 15.4 H Plt Count 564 H MPV 8.4 Immature Gran % (Auto) 0.6 H Neut % (Auto) 80.6 H Lymph % (Auto) 9.4 L [place] % (Auto) 6.1 Eos % (Auto) 2.3 Baso % (Auto) 1.0 Lymph # (Auto) 1.01 [place] # (Auto) 0.7 H Eos # (Auto) 0.3 Baso # (Auto) 0.1 Abs Immat Gran (auto) 0.07 H Absolute Neuts (auto) 8.7 H Absolute Nucleated RBC 0.000 Nucleated RBC % 0.0 Sodium 139 Potassium 3.5 Chloride 102 Carbon Dioxide 29 Anion Gap 8 BUN 7 L Creatinine 0.80 Estim Creat Clear Calc 70 Estimated GFR > 60 Glucose 119 H Calcium 9.1 Total Bilirubin 0.6 AST 32 ALT 16 Alkaline Phosphatase 108 Total Protein 6.7 Albumin 3.7 Subjective Date/time seen: 05/23/25 09:47 Interval history: During the psychiatric interview, he stated he was in [place] and believed it was August 24, 2025, which he identified as his birthday. He initially reported the current year as 2023 before correcting to 2024 but remained unable to accurately identify the current month or upcoming holidays. Giancarlo denied psychiatric distress, stating that he feels ?happy? and that ?today's beautiful.? He denied sadness, pessimism, dissatisfaction, guilt, or self-criticism. He endorsed good appetite and sleep quality, stating that he does not wake during the night or feel tired during the day. He described his social environment as supportive, noting, ?I get good people around me.? During the assessment, Giancarlo was pleasant and cooperative. Hospital staff reports corroborate that he is generally pleasant during the day; however, caustic cresylate shift superintendent staff report episodes of agitation and confusion in the evening, consistent with owning behavior.
[2025-05-23] MEDS: IRON SUCROSE COMPLEX 200 MG, IRON SUCROSE COMPLEX 100 MG in SODIUM CHLORIDE 0.9% IV 250 ML 176.67 MG IVPB (10:52)
[2025-05-23] MEDS: CIPROFLOXACIN 500 MG TAB PO ×2 (12:08→20:11)
[2025-05-23] MEDS: DONEPEZIL HCL 10 MG TABLET PO (12:08)
[2025-05-23 12:09] VITALS: PULSE 88
[2025-05-23] MEDS: ATORVASTATIN 40 MG TABLET PO (12:09)
[2025-05-23] MEDS: LACOSAMIDE (*CRX) 200 MG TABLET PO ×2 (12:09→20:11)
[2025-05-23] MEDS: METOPROLOL SUCCINATE EXT REL 50 MG TABCR PO (12:09)
[2025-05-23] MEDS: APIXABAN 5 MG TABLET PO ×2 (12:09→20:11)
[2025-05-23] MEDS: buPROPion HCL XL (24 HR) 150 MG TABCR PO (12:09)
[2025-05-23 14:00] VITALS: BP 114/68; PULSE 92; RESP 16; TEMP 36.5; O2SAT 99
[2025-05-23] MEDS: QUEtiapine FUMARATE XR 50 MG TAB.ER.24H 100 MG PO (17:30)
--- NOTE | 2025-05-23 18:28 | WPDONCPN ---
Progress Note: A&P Assessment and Plan (1) Thrombocytosis: Code(s): D75.839 - Thrombocytosis, unspecified Status: Acute Assessment and Plan: Patient with acute thrombocytosis started on 05/15/25. This is likely reactive thrombocytosis in the setting of infection (UTI/prostatitis). Patient also had hematuria and Iron panel is indicative of Iron deficiency. Patient is on oral iron (Ferrous gluconate) but may not be sufficient to replete. A repeat Iron studies with ferritin showed iron saturations low and ferritin further decreased. Patient received 300mg of IV iron 05/21/25. Recommend two more days of venofer 300mg for total of 900mg. Infectious reactive thrombocytosis usually 3-4 weeks post infection and see platelets back to baseline. Additionally, ciprofloxacin is also reported to cause thrombocytosis in rare patients in post marketing surveillance and is in FDA drug label. No additional work up other than what ordered. Platelet count is 564 K. I believe this is reactive- inflammation, infection, medication. Patient awaiting placement in senior care. CBC should be repeated in 4 weeks post discharge to assess the platelet count. His cipro will be done 05/27/25. Subjective Date/time seen: 05/23/25 18:28 Interval history: Patient seen at bedside. Per review of nursing notes patient required restraints overnight. He is in pleasant mood this evening Review of Systems Review of Systems Patient is more cohesive with conversation but still not able to show rational thoughts. States that he feels OK. No fevers, chills, or night sweats. Denies chest pain, cough or hemoptysis. Denies abdominal pain, n/v/d. Rest of ROS is negative Exam Narrative: General: ill-appearing, no acute distress Eyes: EOMI ENT: neck supple Cardiovascular: Regular rate and rhythm Respiratory: CTAB Gastrointestinal: Soft, non tender Genitourinary: Viera catheter draining clear urine Musculoskeletal: No edema Skin: warm, dry Neuro: No focal deficits Objective Data Vital Signs Vital Signs: Vital Signs - 24 hr 05/22/25 21:41 05/23/25 08:00 05/23/25 12:09 Temperature Pulse Rate 88 Respiratory Rate Blood Pressure Pulse Oximetry Oxygen Delivery Room Air Room Air 05/23/25 14:00 Temperature 36.5 C Pulse Rate 92 Respiratory Rate 16 Blood Pressure 114/68 Pulse Oximetry 99 Oxygen Delivery Intake/Output Intake/Output: Intake & Output 05/20/25 05/21/25 05/22/25 05/23/25 23:59 23:59 23:59 23:59 Intake Total 1470 2905 845 460 Output Total 894 311 9312 1400 Balance 570 3905 -8556 -940 Meds/Results Medications: Active Medications Generic Name Dose Route Start Last Admin Trade Name Freq PRN Reason Stop Dose Admin Acetaminophen 650 mg 05/09/25 13:23 05/21/25 21:43 Acetaminophen 325 Mg Tablet PO 650 mg Q6H PRN Administration Pain Rated 1-3 Apixaban 5 mg 05/22/25 09:15 05/23/25 12:09 Apixaban 5 Mg Tablet PO 5 mg Q12HR JUSTINA Administration Atorvastatin Calcium 40 mg 05/10/25 09:00 05/23/25 12:09 Atorvastatin 40 Mg Tablet PO 40 mg DAILY JUSTINA Administration Bupropion HCl 150 mg 05/10/25 09:00 05/23/25 12:09 Bupropion Hcl Xl (24 Hr) 150 Mg Tabcr PO 150 mg DAILY JUSTINA Administration Ciprofloxacin 500 mg 05/13/25 21:00 05/23/25 12:08 Ciprofloxacin 500 Mg Tab PO 06/01/25 23:59 500 mg Q12HR JUSTINA Administration Donepezil HCl 10 mg 05/10/25 09:00 05/23/25 12:08 Donepezil Hcl 10 Mg Tablet PO 10 mg DAILY JUSTINA Administration Ferrous Gluconate 324 mg 05/18/25 12:00 05/20/25 13:56 Ferrous Gluconate 324 Mg Tablet PO Not Given On Hold: 05/21/25 06:59 DAILY@1200 JUSTINA Hydralazine HCl 10 mg 05/13/25 05:42 05/13/25 05:59 Hydralazine Hcl 20 Mg/Ml Vial IV PUSH 10 mg Q4H PRN Administration SYSTOLIC BP >160 Iron Sucrose 200 mg/ Iron 265 mls @ 176.667 mls/hr 05/21/25 09:00 05/23/25 10:52 Sucrose 100 mg/ Sodium IVPB 05/24/25 08:59 176.67 mls/hr Chloride DAILY JUSTINA Administration Lacosamide 200 mg 05/09/25 22:35 05/23/25 12:09 Lacosamide (*Crx) 200 Mg Tablet PO 200 mg Q12HR JUSTINA Administration Lisinopril 40 mg 05/10/25 09:00 05/23/25 12:08 Lisinopril 20 Mg Tablet PO 40 mg QAM JUSTINA Administration Metoprolol Succinate 50 mg 05/10/25 09:00 05/23/25 12:09 Metoprolol Succinate Ext Rel 50 Mg Tabcr PO 50 mg DAILY JUSTINA Administration Miscellaneous Information 1 each 05/23/25 00:01 Please Renew Cipro_. Per [employer] Procedure, It Will Discontinue If Not Renewed XX 06/22/25 00:00 CLARIFY JUSTINA Ondansetron HCl 4 mg 05/09/25 13:24 Ondansetron Hcl Odt 4 Mg Tablet PO Q4H PRN Nausea And Vomiting Ondansetron HCl 4 mg 05/11/25 12:01 Ondansetron Inj 4 Mg/2 Ml Vial IV PUSH ONCE PRN Nausea Quetiapine Fumarate 25 mg 05/20/25 14:03 05/22/25 12:25 Quetiapine Fumarate 25 Mg Tablet PO 25 mg Q12HR PRN Administration agitation Quetiapine Fumarate 100 mg 05/23/25 18:00 05/23/25 17:30 Quetiapine Fumarate Xr 50 Mg Tab.Er.24h PO 100 mg EVENING JUSTINA Administration Tamsulosin HCl 0.4 mg 05/20/25 21:00 05/22/25 23:49 Tamsulosin Hcl 0.4 Mg Capsule PO Not Given HS [facility] Radiology Results: ITS Impressions Chest/Abdomen/Pelvis CT 05/09/25 12:34 IMPRESSION: 1. Prostatomegaly with surrounding from trace stranding also extending around the bilateral seminal vesicles which raises concern for prostatitis. 2. No acute cardiopulmonary disease or other acute intra-abdominal/pelvic process. Chest X-Ray 05/19/25 11:58 IMPRESSION: No acute process. Head CT 05/19/25 12:13 IMPRESSION: 1. No significant interval change. Bilateral lacunar infarcts, as detailed above. 2. Other chronic findings including parenchymal atrophy and chronic small vessel ischemic changes. Labs Labs: Laboratory Results - last 24 hr 05/23/25 04:17 WBC 10.8 H RBC 3.06 L Hgb 9.4 L Hct 29.0 L MCV 94.8 MCH 30.7 MCHC 32.4 RDW 15.4 H Plt Count 564 H MPV 8.4 Immature Gran % (Auto) 0.6 H Neut % (Auto) 80.6 H Lymph % (Auto) 9.4 L [place] % (Auto) 6.1 Eos % (Auto) 2.3 Baso % (Auto) 1.0 Lymph # (Auto) 1.01 [place] # (Auto) 0.7 H Eos # (Auto) 0.3 Baso # (Auto) 0.1 Abs Immat Gran (auto) 0.07 H Absolute Neuts (auto) 8.7 H Absolute Nucleated RBC 0.000 Nucleated RBC % 0.0 Sodium 139 Potassium 3.5 Chloride 102 Carbon Dioxide 29 Anion Gap 8 BUN 7 L Creatinine 0.80 Estim Creat Clear Calc 70 Estimated GFR > 60 Glucose 119 H Calcium 9.1 Total Bilirubin 0.6 AST 32 ALT 16 Alkaline Phosphatase 108 Total Protein 6.7 Albumin 3.7
[2025-05-23 20:00] VITALS: BP 115/55; PULSE 75; RESP 20; TEMP 36.9; O2SAT 94
[2025-05-23] MEDS: TAMSULOSIN HCL 0.4 MG CAPSULE PO (20:11)
[2025-05-23 20:25] VITALS: O2SAT 96
[2025-05-24 05:41] LABS: Alanine Aminotransferase 16 U/L (6-50); Albumin Level 3.3 g/dL (3.5-5.1); Alkaline Phosphatase 93 U/L (38-126); Anion Gap 7 mmol/L (4-12); Aspartate Amino Transferase 27 U/L (17-59); Bilirubin,Total 0.3 mg/dL (0.2-1.3); Blood Urea Nitrogen 10 mg/dL (9-20); Calcium 8.8 mg/dL (8.4-10.2); Carbon Dioxide 26 mmol/L (22-30); Chloride 104 mmol/L (98-107); Estimated CRCL calculation 62 ml/min; Estimated Glomerular Filt Rate > 60; Glucose 108 mg/dL (65-110); Potassium 3.7 mmol/L (3.4-5.0); Sodium 137 mmol/L (137-145); Total Protein 5.9 g/dL (6.3-8.2)
--- NOTE | 2025-05-24 07:19 | P.PNIM_ITS ---
Progress Note: A&P Assessment and Plan (1) AMS (altered mental status): Qualifiers: Altered mental status type: delirium Qualified Code(s): R41.0 - Disorientation, unspecified Code(s): R41.82 - Altered mental status, unspecified Status: Acute Assessment and Plan: -Head CT, 05/09 with no acute process, old lacunar infarcts in the R basal ganglia and coronal radiata of the bilateral frontal and right parietal lobes. Age-related changes. -recent dx of CVA on 04/23. MRI showed a small acute infarct at the genu of the right corpus callosum and several old lacunar infarcts at the right basal ganglia and right frontal and parietal lobe dobbins radiata. -developed agitation during last admission, thought to be secondary to CVA vs. side effect of Keppra so was transitioned to Lacosamide -UDS + for cannabis 04/22 -management of UTI as below - suspect patient has developed vascular dementia in setting of recent CVA. Continue Aricept. - patient had episode of altered consciousness in the bathroom with rapid response 05/19 (see note), most likely orthostatic event/vasovagal, less likely seizure or CVA, neuro in agreement. -initially started on Zyprexa, concern for EPS noted 05/19, psych reconsulted and recommended switching to Seroquel. EPS resolved. Patient still with intermittent agitation requiring restraints. Discussed with psych 05/23 and changed to Seroquel XR 100mg in the evening, continue Seroquel 25mg BID PRN. Patient has been stable after med changes. - awaiting SNF placement (2) Urinary retention: Code(s): R33.9 - Retention of urine, unspecified Status: Acute Assessment and Plan: - urinary retention noted on admission. Required Meyer catheter insertion. Patient became agitated and pulled out Meyer which required stat cystoscopy with clot evacuation and complex Meyer catheter insertion 05/11. During operation, significant blood clot with obvious injury to the membranous urethra, [address] placed. - voiding trial 05/20, patient failed and required straight cath. Urology recommended catheter reinsertion 05/21. OK to restart Eliquis. (3) Prostatitis: Qualifiers: Prostatitis type: acute Qualified Code(s): N41.0 - Acute prostatitis Code(s): N41.9 - Inflammatory disease of prostate, unspecified Status: Acute Assessment and Plan: -CT showed indicators of prostatitis - UA consistent with infection -Urine culture was collected, but apparently never received by [facility] -urology following -Started on Ciprofloxacin IV switched to Oral on 05/13, end date 06/01 per urology recs (4) Anemia: Qualifiers: Anemia type: unspecified type Qualified Code(s): D64.9 - Anemia, unspecified Code(s): D64.9 - Anemia, unspecified Status: Acute Assessment and Plan: -Hgb 12.3 upon admission on 05/09. 15.7 at discharge on 04/29. -iron and iron saturation low - acute drop likely secondary to hematuria in setting of Meyer trauma -Of note, recently started on Eliquis and Plavix secondary to acute stroke earlier this month - 05/23: Hgb 9.4. Improving. - oncology following and recommended IV Venofer. Received 3 doses. - Hgb stable. Eliquis restarted 05/22. Monitor for signs of bleeding. (5) Sepsis: Code(s): A41.9 - Sepsis, unspecified organism Status: Resolved Assessment and Plan: -sepsis present on admission as evidenced by tachycardia, tachypnea, leukocytosis -source: UTI with possible prostatitis -management of UTI as below - Urine culture was sent however apparently never received by [facility] -WBC down from 27.9 on admission, now normalized -Blood cultures negative for growth - final - sepsis resolved (6) History of CVA (cerebrovascular accident): Code(s): Z86.73 - Personal history of transient ischemic attack (TIA), and cerebral infarction without residual deficits Status: Chronic Assessment and Plan: -Brain MRI, 04/23 with small acute infarct at the genu of the right corpus callosum, several old lacunar infarcts, multiple small foci of susceptibility artifact scattered throughout the brain including the cerebral hemispheres, midbrain and cerebellum consistent with chronic microhemorrhage typically seen in the setting of hypertension but can also be seen with amyloid angiopathy. -worsening AMS likely secondary to UTI, however could be sequela of recent CVA. started on abx, monitor response. -discussed with Dr. Miguel falk to stop ASA, Plavix as patient was found to have Afib on last admission. Eliquis held due to Meyer trauma. Restarted 05/22. - Neurology reconsulted due to episode of altered consciousness 05/19, suspect vasovagal event (7) Seizure disorder: Code(s): G40.909 - Epilepsy, unspecified, not intractable, without status epilepticus Status: Chronic Assessment and Plan: -EEG 05/21 unremarkable -continue lacosamide (switched from Keppra due to agitation on last admit) (8) Atrial fibrillation: Qualifiers: Atrial fibrillation type: unspecified chronic Qualified Code(s): I48.20 - Chronic atrial fibrillation, unspecified Code(s): I48.91 - Unspecified atrial fibrillation Status: Chronic Assessment and Plan: -continue metoprolol, Eliquis (9) Hypertension: Qualifiers: Hypertension type: essential hypertension Qualified Code(s): I10 - Essential (primary) hypertension Code(s): I10 - Essential (primary) hypertension Status: Chronic Assessment and Plan: -chronic -continue home medications: Lisinopril, metoprolol -monitor (10) Thrombocytosis: Code(s): D75.839 - Thrombocytosis, unspecified Status: Acute Assessment and Plan: -admit Plts 317, trended up to peak 617 -Could be 2/2 underlying anemia, prostatitis, UTI -No splenomegaly on exam -consulted hematology, suspect reactive thrombocytosis, no further work-up necessary - improving - monitor CBC Plan DVT Prophylaxis: Anam Disposition: SNF, hopefully 1-2 days Code Status: Full code Subjective Date/time seen: 05/24/25 07:19 Interval history: Patient seen and examined at bedside. Calm and pleasant. Mildly confused. Did well last night with dose change of Seroquel. Patient is medically stable for discharge, awaiting SNF placement. Auth pending. Review of Systems Review of Systems: All systems reviewed & are unremarkable except as noted in HPI and below Exam Narrative: General: NAD Eyes: EOMI ENT: neck supple Cardiovascular: Regular rate and rhythm Respiratory: Clear to auscultation, respirations even and unlabored on RA Gastrointestinal: Soft, non tender Genitourinary: no suprapubic tenderness, meyer catheter draining clear yellow urine Musculoskeletal: No edema Skin: warm, dry Neuro: alert and oriented x3. Psych: Mood appropriate Objective Data Vital Signs Vital Signs: Vital Signs - 24 hr 05/23/25 08:00 05/23/25 12:09 05/23/25 14:00 Temperature 97.7 F Pulse Rate 88 92 Respiratory Rate 16 Blood Pressure 114/68 Pulse Oximetry 99 Oxygen Delivery Room Air 05/23/25 20:00 05/23/25 20:00 05/23/25 20:25 Temperature 98.4 F Pulse Rate 75 Respiratory Rate 20 Blood Pressure 115/55 L Pulse Oximetry 94 96 Oxygen Delivery Room Air Room Air Intake/Output Intake/Output: Intake & Output 05/21/25 05/22/25 05/23/25 05/24/25 23:59 23:59 23:59 23:59 Intake Total 2905 845 700 100 Output Total 900 1900 2145 200 Balance 2005 -1055 -1445 -100 Meds/Results Medications: Active Medications Generic Name Dose Route Start Last Admin Trade Name Roberto PRN Reason Stop Dose Admin Acetaminophen 650 mg 05/09/25 13:23 05/21/25 21:43 Acetaminophen 325 Mg Tablet PO 650 mg Q6H PRN Administration Pain Rated 1-3 Apixaban 5 mg 05/22/25 09:15 05/23/25 20:11 Apixaban 5 Mg Tablet PO 5 mg Q12HR JUSTINA Administration Atorvastatin Calcium 40 mg 05/10/25 09:00 05/23/25 12:09 Atorvastatin 40 Mg Tablet PO 40 mg DAILY JUSTINA Administration Bupropion HCl 150 mg 05/10/25 09:00 05/23/25 12:09 Bupropion Hcl Xl (24 Hr) 150 Mg Tabcr PO 150 mg DAILY JUSTINA Administration Ciprofloxacin 500 mg 05/13/25 21:00 05/23/25 20:11 Ciprofloxacin 500 Mg Tab PO 06/01/25 23:59 500 mg Q12HR JUSTINA Administration Donepezil HCl 10 mg 05/10/25 09:00 05/23/25 12:08 Donepezil Hcl 10 Mg Tablet PO 10 mg DAILY JUSTINA Administration Ferrous Gluconate 324 mg 05/18/25 12:00 05/20/25 13:56 Ferrous Gluconate 324 Mg Tablet PO Not Given On Hold: 05/21/25 06:59 DAILY@1200 [facility] Hydralazine HCl 10 mg 05/13/25 05:42 05/13/25 05:59 Hydralazine Hcl 20 Mg/Ml Vial IV PUSH 10 mg Q4H PRN Administration SYSTOLIC BP >160 Iron Sucrose 200 mg/ Iron 265 mls @ 176.667 mls/hr 05/21/25 09:00 05/23/25 10:52 Sucrose 100 mg/ Sodium IVPB 05/24/25 08:59 176.67 mls/hr Chloride DAILY JUSTINA Administration Lacosamide 200 mg 05/09/25 22:35 05/23/25 20:11 Lacosamide (*Crx) 200 Mg Tablet PO 200 mg Q12HR JUSTINA Administration Lisinopril 40 mg 05/10/25 09:00 05/23/25 12:08 Lisinopril 20 Mg Tablet PO 40 mg QAM JUSTINA Administration Metoprolol Succinate 50 mg 05/10/25 09:00 05/23/25 12:09 Metoprolol Succinate Ext Rel 50 Mg Tabcr PO 50 mg DAILY JUSTINA Administration Miscellaneous Information 1 each 05/23/25 00:01 Please Renew Cipro_. Per [employer] Procedure, It Will Discontinue If Not Renewed XX 06/22/25 00:00 CLARIFY JUSTINA Ondansetron HCl 4 mg 05/09/25 13:24 Ondansetron Hcl Odt 4 Mg Tablet PO Q4H PRN Nausea And Vomiting Ondansetron HCl 4 mg 05/11/25 12:01 Ondansetron Inj 4 Mg/2 Ml Vial IV PUSH ONCE PRN Nausea Quetiapine Fumarate 25 mg 05/20/25 14:03 05/22/25 12:25 Quetiapine Fumarate 25 Mg Tablet PO 25 mg Q12HR PRN Administration agitation Quetiapine Fumarate 100 mg 05/23/25 18:00 05/23/25 17:30 Quetiapine Fumarate Xr 50 Mg Tab.Er.24h PO 100 mg EVENING JUSTINA Administration Tamsulosin HCl 0.4 mg 05/20/25 21:00 05/23/25 20:11 Tamsulosin Hcl 0.4 Mg Capsule PO 0.4 mg HS JUSTINA Administration Radiology Results: ITS Impressions Chest/Abdomen/Pelvis CT 05/09/25 12:34 IMPRESSION: 1. Prostatomegaly with surrounding from trace stranding also extending around the bilateral seminal vesicles which raises concern for prostatitis. 2. No acute cardiopulmonary disease or other acute intra-abdominal/pelvic process. Chest X-Ray 05/19/25 11:58 IMPRESSION: No acute process. Head CT 05/19/25 12:13 IMPRESSION: 1. No significant interval change. Bilateral lacunar infarcts, as detailed above. 2. Other chronic findings including parenchymal atrophy and chronic small vessel ischemic changes. Labs Labs: Laboratory Results - last 24 hr 05/24/25 04:32 Sodium 137 Potassium 3.7 Chloride 104 Carbon Dioxide 26 Anion Gap 7 BUN 10 Creatinine 0.89 Estim Creat Clear Calc 62 Estimated GFR > 60 Glucose 108 Calcium 8.8 Total Bilirubin 0.3 AST 27 ALT 16 Alkaline Phosphatase 93 Total Protein 5.9 L Albumin 3.3 L Quality VTE Prophylaxis VTE prophylaxis: pharmacologic ordered
[2025-05-24] MEDS: CIPROFLOXACIN 500 MG TAB PO ×2 (09:43→21:01)
[2025-05-24] MEDS: DONEPEZIL HCL 10 MG TABLET PO (09:43)
[2025-05-24 09:44] VITALS: PULSE 88
[2025-05-24] MEDS: METOPROLOL SUCCINATE EXT REL 50 MG TABCR PO (09:44)
[2025-05-24] MEDS: ATORVASTATIN 40 MG TABLET PO (09:44)
[2025-05-24] MEDS: APIXABAN 5 MG TABLET PO ×2 (09:44→21:01)
[2025-05-24] MEDS: LACOSAMIDE (*CRX) 200 MG TABLET PO ×2 (09:44→21:01)
[2025-05-24] MEDS: buPROPion HCL XL (24 HR) 150 MG TABCR PO (09:46)
[2025-05-24 09:53] VITALS: BP 143/83; PULSE 88; RESP 16; O2SAT 100
--- NOTE | 2025-05-24 10:42 | PCNWS ---
Weekly nutritional screen. Patient is tolerating current diet with adequate intake. No weight loss reported. No nutritional needs at this time.
[2025-05-24 14:44] VITALS: BP 126/80; PULSE 92; RESP 18; TEMP 36.8; O2SAT 97
[2025-05-24] MEDS: QUEtiapine FUMARATE XR 50 MG TAB.ER.24H 100 MG PO (17:22)
[2025-05-24 20:00] VITALS: BP 146/80; PULSE 97; RESP 16; TEMP 36.9; O2SAT 100
[2025-05-24] MEDS: TAMSULOSIN HCL 0.4 MG CAPSULE PO (21:01)
[2025-05-24 21:13] VITALS: O2SAT 99
[2025-05-25 05:10] LABS: Hematocrit 28.9 % (42.0-52.0); Hemoglobin 9.2 g/dL (14.0-18.0); Immature Granulocyte Percent A 0.5 % (0-0.5); Lymphocytes Absolute Auto 1.00 K/mm3 (0.9-3.2); Mean Corpuscular HGB Conc 31.8 g/dl (32-36); Mean Corpuscular Hemoglobin 31.2 pg (26-34); Mean Corpuscular Volume 98.0 fl (80-100); Nucleated Red Blood Cells Absolute Auto 0.000 K/mm3 (0.0-0.012); Nucleated Red Blood Cells Perc 0.0 % (0.0-0.2); Platelet Count Result 504 k/mm3 (150-375); Red Blood Count 2.95 M/mm3 (4.6-6.20); White Blood Count 8.2 K/mm3 (4.5-10.0)
[2025-05-25 08:00] VITALS: BP 137/78; PULSE 113; RESP 14; TEMP 36.6; O2SAT 97
[2025-05-25] MEDS: CIPROFLOXACIN 500 MG TAB PO ×2 (08:14→21:14)
[2025-05-25 08:15] VITALS: PULSE 92
[2025-05-25] MEDS: buPROPion HCL XL (24 HR) 150 MG TABCR PO (08:15)
[2025-05-25] MEDS: METOPROLOL SUCCINATE EXT REL 50 MG TABCR PO (08:15)
[2025-05-25] MEDS: LACOSAMIDE (*CRX) 200 MG TABLET PO ×2 (08:15→21:14)
[2025-05-25] MEDS: ATORVASTATIN 40 MG TABLET PO (08:15)
[2025-05-25] MEDS: DONEPEZIL HCL 10 MG TABLET PO (08:15)
[2025-05-25] MEDS: APIXABAN 5 MG TABLET PO (08:15)
[2025-05-25] MEDS: ACETAMINOPHEN 325 MG TABLET 650 MG PO (09:46)
--- NOTE | 2025-05-25 13:17 | P.PNUR_ITS ---
Progress Note: A&P Assessment and Plan (1) Urinary retention: Code(s): R33.9 - Retention of urine, unspecified Status: Acute Assessment and Plan: - discharge with Meyer catheter. Flush p.r.n. for hematuria. - He should follow up shabnam in the clinic to get set up for urodynamics As he has failed at least 2 voiding trials at this point. - pt unable to perform self CIC, -continue flomax and discharged with this medication. -monitor and re-direct to make sure he doesnt self extract meyer cath Subjective Subjective Date/Time Seen: 05/25/25 13:17 Interval history: Patient seen and examined at bedside. He is sitting in the chair. is present.Calm and pleasant. He is still confused. he reports having bugs all over his legs. Catheter in place. Red urine noted in the bag. Review of Systems Review of Systems: All systems reviewed & are unremarkable except as noted in HPI and below Exam Narrative: General: The patient is well-developed in no acute distress. Appears comfortable on exam. HEENT: Normocephalic, normal ear and nose structures Skin: Warm, dry, with no lesions seen on visible skin Lungs: Normal respiratory effort Heart: Appears well perfused Abdomen: Nondistended Suprapubic area: Nondistended : Meyer draining red urine, no clots Extremities: Upper with no deformities. Lower - no edema Neurologic: The patient is oriented to person. Easily redirected. Normal mood and affect. Objective Data Vital Signs Vital Signs: Vital Signs - 24 hr 05/24/25 14:44 05/24/25 20:00 05/24/25 20:00 Temperature 98.3 F 98.4 F Pulse Rate 92 97 Respiratory Rate 18 16 Blood Pressure 126/80 146/80 H Pulse Oximetry 97 100 Oxygen Delivery Room Air 05/24/25 21:13 05/25/25 08:00 05/25/25 08:15 Temperature 97.8 F Pulse Rate 113 H 92 Respiratory Rate 14 Blood Pressure 137/78 Pulse Oximetry 99 97 Oxygen Delivery Room Air 05/25/25 08:15 Temperature Pulse Rate Respiratory Rate Blood Pressure Pulse Oximetry Oxygen Delivery Room Air Intake/Output Intake/Output: Intake & Output 05/22/25 05/23/25 05/24/25 05/25/25 23:59 23:59 23:59 23:59 Intake Total 845 700 580 540 Output Total 1348 6835 475 450 Balance -1055 -1445 105 90 Meds/Results Medications: Active Medications Generic Name Dose Route Start Last Admin Trade Name Freq PRN Reason Stop Dose Admin Acetaminophen 650 mg 05/09/25 13:23 05/25/25 09:46 Acetaminophen 325 Mg Tablet PO 650 mg Q6H PRN Administration Pain Rated 1-3 Apixaban 5 mg 05/22/25 09:15 05/25/25 08:15 Apixaban 5 Mg Tablet PO 5 mg Q12HR JUSTINA Administration Atorvastatin Calcium 40 mg 05/10/25 09:00 05/25/25 08:15 Atorvastatin 40 Mg Tablet PO 40 mg DAILY JUSTINA Administration Bupropion HCl 150 mg 05/10/25 09:00 05/25/25 08:15 Bupropion Hcl Xl (24 Hr) 150 Mg Tabcr PO 150 mg DAILY JUSTINA Administration Ciprofloxacin 500 mg 05/13/25 21:00 05/25/25 08:14 Ciprofloxacin 500 Mg Tab PO 06/01/25 23:59 500 mg Q12HR JUSTINA Administration Donepezil HCl 10 mg 05/10/25 09:00 05/25/25 08:15 Donepezil Hcl 10 Mg Tablet PO 10 mg DAILY JUSTINA Administration Ferrous Gluconate 324 mg 05/18/25 12:00 05/20/25 13:56 Ferrous Gluconate 324 Mg Tablet PO Not Given On Hold: 05/21/25 06:59 DAILY@1200 [facility] Hydralazine HCl 10 mg 05/13/25 05:42 05/13/25 05:59 Hydralazine Hcl 20 Mg/Ml Vial IV PUSH 10 mg Q4H PRN Administration SYSTOLIC BP >160 Lacosamide 200 mg 05/09/25 22:35 05/25/25 08:15 Lacosamide (*Crx) 200 Mg Tablet PO 200 mg Q12HR JUSTINA Administration Lisinopril 40 mg 05/10/25 09:00 05/25/25 08:15 Lisinopril 20 Mg Tablet PO 40 mg QAM JUSTINA Administration Metoprolol Succinate 50 mg 05/10/25 09:00 05/25/25 08:15 Metoprolol Succinate Ext Rel 50 Mg Tabcr PO 50 mg DAILY JUSTINA Administration Ondansetron HCl 4 mg 05/09/25 13:24 Ondansetron Hcl Odt 4 Mg Tablet PO Q4H PRN Nausea And Vomiting Ondansetron HCl 4 mg 05/11/25 12:01 Ondansetron Inj 4 Mg/2 Ml Vial IV PUSH ONCE PRN Nausea Quetiapine Fumarate 25 mg 05/20/25 14:03 05/25/25 09:47 Quetiapine Fumarate 25 Mg Tablet PO 25 mg Q12HR PRN Administration agitation Quetiapine Fumarate 100 mg 05/23/25 18:00 05/24/25 17:22 Quetiapine Fumarate Xr 50 Mg Tab.Er.24h PO 100 mg EVENING JUSTINA Administration Tamsulosin HCl 0.4 mg 05/20/25 21:00 05/24/25 21:01 Tamsulosin Hcl 0.4 Mg Capsule PO 0.4 mg HS JUSTINA Administration Radiology Results: ITS Impressions Chest/Abdomen/Pelvis CT 05/09/25 12:34 IMPRESSION: 1. Prostatomegaly with surrounding from trace stranding also extending around the bilateral seminal vesicles which raises concern for prostatitis. 2. No acute cardiopulmonary disease or other acute intra-abdominal/pelvic process. Chest X-Ray 05/19/25 11:58 IMPRESSION: No acute process. Head CT 05/19/25 12:13 IMPRESSION: 1. No significant interval change. Bilateral lacunar infarcts, as detailed above. 2. Other chronic findings including parenchymal atrophy and chronic small vessel ischemic changes. Labs Labs: Laboratory Results - last 24 hr 05/25/25 04:43 WBC 8.2 RBC 2.95 L Hgb 9.2 L Hct 28.9 L MCV 98.0 MCH 31.2 MCHC 31.8 L RDW 16.0 H Plt Count 504 H MPV 8.3 Immature Gran % (Auto) 0.5 Neut % (Auto) 73.6 H Lymph % (Auto) 12.2 L [place] % (Auto) 9.8 H Eos % (Auto) 3.2 Baso % (Auto) 0.7 Lymph # (Auto) 1.00 [place] # (Auto) 0.8 H Eos # (Auto) 0.3 Baso # (Auto) 0.1 Abs Immat Gran (auto) 0.04 H Absolute Neuts (auto) 6.0 Absolute Nucleated RBC 0.000 Nucleated RBC % 0.0
--- NOTE | 2025-05-25 14:20 | PCOTNOTE ---
Attempted to see patient but declines OT. Encouraged patient to participate but cont to decline. Patient has increased confusion and fixated on bugs.
--- NOTE | 2025-05-25 15:06 | P.PNIM_ITS ---
Progress Note: A&P Assessment and Plan (1) AMS (altered mental status): Qualifiers: Altered mental status type: delirium Qualified Code(s): R41.0 - Disorientation, unspecified Code(s): R41.82 - Altered mental status, unspecified Status: Acute Assessment and Plan: Head CT, 05/09 with no acute process, old lacunar infarcts in the R basal ganglia and coronal radiata of the bilateral frontal and right parietal lobes. Age- related changes,recent dx of CVA on 04/23. MRI showed a small acute infarct at the genu of the right corpus callosum and several old lacunar infarcts at the right basal ganglia and right frontal and parietal lobe dobbins radiata. developed agitation during last admission, thought to be secondary to CVA vs. side effect of Keppra so was transitioned to Lacosamide, suspect patient has developed vascular dementia in setting of recent CVA. Continue Aricept. patient had episode of altered consciousness in the bathroom with rapid response 05/19 (see note), most likely orthostatic event/vasovagal, less likely seizure or CVA, neuro in agreement. -UDS + for cannabis 04/22 -management of UTI as below -initially started on Zyprexa, concern for EPS noted 05/19, psych reconsulted and recommended switching to Seroquel. EPS resolved. Patient still with intermittent agitation requiring restraints. Discussed with psych 05/23 and changed to Seroquel XR 100mg in the evening, continue Seroquel 25mg BID PRN. Patient has been stable after med changes. - awaiting SNF placement (2) Urinary retention: Code(s): R33.9 - Retention of urine, unspecified Status: Acute Assessment and Plan: - urinary retention noted on admission. Required Viera catheter insertion. Patient became agitated and pulled out Viera which required stat cystoscopy with clot evacuation and complex Viera catheter insertion 05/11. During operation, significant blood clot with obvious injury to the membranous urethra, [address] placed. - voiding trial 05/20, patient failed and required straight cath. Urology recommended catheter reinsertion 05/21. OK to restart Eliquis. New hematuria after restarting Eliquis. Monitor H&H. Okay to discharge per Urology. (3) Prostatitis: Qualifiers: Prostatitis type: acute Qualified Code(s): N41.0 - Acute prostatitis Code(s): N41.9 - Inflammatory disease of prostate, unspecified Status: Acute Assessment and Plan: -CT showed indicators of prostatitis - UA consistent with infection -Urine culture was collected, but apparently never received by [facility] -urology following -Started on Ciprofloxacin IV switched to Oral on 05/13, end date 06/01 per urology recs (4) Anemia: Qualifiers: Anemia type: unspecified type Qualified Code(s): D64.9 - Anemia, unspecified Code(s): D64.9 - Anemia, unspecified Status: Acute Assessment and Plan: -Hgb 12.3 upon admission on 05/09. 15.7 at discharge on 04/29. -iron and iron saturation low - acute drop likely secondary to hematuria in setting of Viera trauma -Of note, recently started on Eliquis and Plavix secondary to acute stroke earlier this month - 05/23: Hgb 9.4. Improving. - oncology following and recommended IV Venofer. Received 3 doses. - Hgb stable. Eliquis restarted 05/22. Monitor for signs of bleeding. Hold Eliquis. Recheck H&H in morning. (5) Sepsis: Code(s): A41.9 - Sepsis, unspecified organism Status: Resolved Assessment and Plan: -sepsis present on admission as evidenced by tachycardia, tachypnea, leukocytosis -source: UTI with possible prostatitis -management of UTI as below - Urine culture was sent however apparently never received by [facility] -WBC down from 27.9 on admission, now normalized -Blood cultures negative for growth - final - sepsis resolved (6) History of CVA (cerebrovascular accident): Code(s): Z86.73 - Personal history of transient ischemic attack (TIA), and cerebral infarction without residual deficits Status: Chronic Assessment and Plan: -Brain MRI, 04/23 with small acute infarct at the genu of the right corpus callosum, several old lacunar infarcts, multiple small foci of susceptibility artifact scattered throughout the brain including the cerebral hemispheres, midbrain and cerebellum consistent with chronic microhemorrhage typically seen in the setting of hypertension but can also be seen with amyloid angiopathy. -worsening AMS likely secondary to UTI, however could be sequela of recent CVA. started on abx, monitor response. -discussed with Dr. Miguel falk to stop ASA, Plavix as patient was found to have Afib on last admission. Eliquis held due to Viera trauma. Restarted 05/22. - Neurology reconsulted due to episode of altered consciousness 05/19, suspect vasovagal event (7) Seizure disorder: Code(s): G40.909 - Epilepsy, unspecified, not intractable, without status epilepticus Status: Chronic Assessment and Plan: -EEG 05/21 unremarkable -continue lacosamide (switched from Keppra due to agitation on last admit) (8) Atrial fibrillation: Qualifiers: Atrial fibrillation type: unspecified chronic Qualified Code(s): I48.20 - Chronic atrial fibrillation, unspecified Code(s): I48.91 - Unspecified atrial fibrillation Status: Chronic Assessment and Plan: -continue metoprolol, Eliquis (9) Hypertension: Qualifiers: Hypertension type: essential hypertension Qualified Code(s): I10 - Essential (primary) hypertension Code(s): I10 - Essential (primary) hypertension Status: Chronic Assessment and Plan: -chronic -continue home medications: Lisinopril, metoprolol -monitor (10) Thrombocytosis: Code(s): D75.839 - Thrombocytosis, unspecified Status: Acute Assessment and Plan: -admit Plts 317, trended up to peak 617 -Could be 2/2 underlying anemia, prostatitis, UTI -No splenomegaly on exam -consulted hematology, suspect reactive thrombocytosis, no further work-up necessary - improving - monitor CBC Plan DVT Prophylaxis: Eliquis Disposition: SNF, hopefully 1-2 days Code Status: Full code Time Spent With Patient Time with patient: 25 - 35 minutes Subjective Date/time seen: 05/25/25 15:06 Interval history: Patient evaluated in no acute distress. Patient is pleasant and cooperative and post appropriate questions regarding holding his Eliquis. New hematuria however cleared per Urology for discharge. Discharge to sniff pending insurance authorization. Review of Systems Review of Systems: All systems reviewed & are unremarkable except as noted in HPI and below Constitutional: Constitutional: Reports no additional constitutional complaints Eyes: Eyes: Reports no additional eye complaints ENT: Reports system reviewed and no additional complaints, except as documented Cardiovascular: Cardiovascular: Reports no additional cardiovascular complaints Respiratory: Respiratory: Reports no additional respiratory complaints Gastrointestinal: Gastrointestinal: Reports no additional gastrointestinal complaints Genitourinary: Genitourinary: Reports no additional male genitourinary complaints Musculoskeletal: Musculoskeletal: Reports no additional musculoskeletal complaints Integumentary/Breasts: Skin/Breast: Reports system reviewed and no additional complaints, except as docu Neurologic: Reports system reviewed and no additional complaints, except as documented Psychiatric: Psychiatric: Reports no additional psychiatric complaints Exam Const: General: comfortable and no acute distress HENMT: Face/Nose/Sinus: Normal nares present Mouth: Yes moist mucous membranes Eyes: General: appearance normal, both eyes and all related structures Sclera: sclerae normal Pupils: Equal, round and reactive pupils present EOM: EOMs intact bilaterally Neck: Neck: supple and no JVD Resp: Effort & Inspection: normal respiratory effort Auscultation: clear to auscultation bilaterally Cardio: Rate: regular rate Rhythm: regular rhythm GI: GI Palp: Yes Soft to palpation Auscultation: normal bowel sounds Urinary Catheter: Urinary Catheter: patent and draining and urine red Skin: General skin exam: normal color and no rashes or lesions noted Wounds: no wounds Neuro: Cranial nerves: Yes Equal, round and reactive pupils present Speech: normal speech Motor exam (neuro): 5/5 motor strength present throughout Sensory Exam: normal sensation Extrem: General: normal to inspection Psych: Mental Status: mental status grossly normal Affect: normal affect Objective Data Vital Signs Vital Signs: Vital Signs - 24 hr 05/24/25 20:00 05/24/25 20:00 05/24/25 21:13 Temperature 98.4 F Pulse Rate 97 Respiratory Rate 16 Blood Pressure 146/80 H Pulse Oximetry 100 99 Oxygen Delivery Room Air Room Air 05/25/25 08:00 05/25/25 08:15 05/25/25 08:15 Temperature 97.8 F Pulse Rate 113 H 92 Respiratory Rate 14 Blood Pressure 137/78 Pulse Oximetry 97 Oxygen Delivery Room Air Intake/Output Intake/Output: Intake & Output 05/22/25 05/23/25 05/24/25 05/25/25 23:59 23:59 23:59 23:59 Intake Total 845 700 580 540 Output Total 1900 2145 475 600 Balance -1055 -1445 105 -60 Meds/Results Medications: Active Medications Generic Name Dose Route Start Last Admin Trade Name Ricq PRN Reason Stop Dose Admin Acetaminophen 650 mg 05/09/25 13:23 05/25/25 09:46 Acetaminophen 325 Mg Tablet PO 650 mg Q6H PRN Administration Pain Rated 1-3 Apixaban 5 mg 05/22/25 09:15 05/25/25 08:15 Apixaban 5 Mg Tablet PO 5 mg On Hold: 05/25/25 13:18 Q12HR JUSTINA Administration Atorvastatin Calcium 40 mg 05/10/25 09:00 05/25/25 08:15 Atorvastatin 40 Mg Tablet PO 40 mg DAILY JUSTINA Administration Bupropion HCl 150 mg 05/10/25 09:00 05/25/25 08:15 Bupropion Hcl Xl (24 Hr) 150 Mg Tabcr PO 150 mg DAILY JUSTINA Administration Ciprofloxacin 500 mg 05/13/25 21:00 05/25/25 08:14 Ciprofloxacin 500 Mg Tab PO 06/01/25 23:59 500 mg Q12HR JUSTINA Administration Donepezil HCl 10 mg 05/10/25 09:00 05/25/25 08:15 Donepezil Hcl 10 Mg Tablet PO 10 mg DAILY JUSTINA Administration Ferrous Gluconate 324 mg 05/18/25 12:00 05/20/25 13:56 Ferrous Gluconate 324 Mg Tablet PO Not Given On Hold: 05/21/25 06:59 DAILY@1200 [facility] Hydralazine HCl 10 mg 05/13/25 05:42 05/13/25 05:59 Hydralazine Hcl 20 Mg/Ml Vial IV PUSH 10 mg Q4H PRN Administration SYSTOLIC BP >160 Lacosamide 200 mg 05/09/25 22:35 05/25/25 08:15 Lacosamide (*Crx) 200 Mg Tablet PO 200 mg Q12HR JUSTINA Administration Lisinopril 40 mg 05/10/25 09:00 05/25/25 08:15 Lisinopril 20 Mg Tablet PO 40 mg QAM JUSTINA Administration Metoprolol Succinate 50 mg 05/10/25 09:00 05/25/25 08:15 Metoprolol Succinate Ext Rel 50 Mg Tabcr PO 50 mg DAILY [facility] Administration Ondansetron HCl 4 mg 05/09/25 13:24 Ondansetron Hcl Odt 4 Mg Tablet PO Q4H PRN Nausea And Vomiting Ondansetron HCl 4 mg 05/11/25 12:01 Ondansetron Inj 4 Mg/2 Ml Vial IV PUSH ONCE PRN Nausea Quetiapine Fumarate 25 mg 05/20/25 14:03 05/25/25 09:47 Quetiapine Fumarate 25 Mg Tablet PO 25 mg Q12HR PRN Administration agitation Quetiapine Fumarate 100 mg 05/23/25 18:00 05/24/25 17:22 Quetiapine Fumarate Xr 50 Mg Tab.Er.24h PO 100 mg EVENING JUSTINA Administration Tamsulosin HCl 0.4 mg 05/20/25 21:00 05/24/25 21:01 Tamsulosin Hcl 0.4 Mg Capsule PO 0.4 mg HS JUSTINA Administration Radiology Results: ITS Impressions Chest/Abdomen/Pelvis CT 05/09/25 12:34 IMPRESSION: 1. Prostatomegaly with surrounding from trace stranding also extending around the bilateral seminal vesicles which raises concern for prostatitis. 2. No acute cardiopulmonary disease or other acute intra-abdominal/pelvic process. Chest X-Ray 05/19/25 11:58 IMPRESSION: No acute process. Head CT 05/19/25 12:13 IMPRESSION: 1. No significant interval change. Bilateral lacunar infarcts, as detailed above. 2. Other chronic findings including parenchymal atrophy and chronic small vessel ischemic changes. Labs Labs: Laboratory Results - last 24 hr 05/25/25 04:43 WBC 8.2 RBC 2.95 L Hgb 9.2 L Hct 28.9 L MCV 98.0 MCH 31.2 MCHC 31.8 L RDW 16.0 H Plt Count 504 H MPV 8.3 Immature Gran % (Auto) 0.5 Neut % (Auto) 73.6 H Lymph % (Auto) 12.2 L [place] % (Auto) 9.8 H Eos % (Auto) 3.2 Baso % (Auto) 0.7 Lymph # (Auto) 1.00 [place] # (Auto) 0.8 H Eos # (Auto) 0.3 Baso # (Auto) 0.1 Abs Immat Gran (auto) 0.04 H Absolute Neuts (auto) 6.0 Absolute Nucleated RBC 0.000 Nucleated RBC % 0.0 Quality VTE Prophylaxis VTE prophylaxis: pharmacologic ordered -Patient's previous records reviewed on admission -ER notes reviewed in detail on admission -discussed all findings and current treatment plan with patient/Family/POA -Consultations reviewed for recommendations -Patient's disposition for safe discharge discussed with mattress spring encaser Dictation performed by [employer] direct speech recognition software, therefore general superintendent variants and typographical errors may occur. Hospitalist [facility] Advance Care Plan I have confirmed that the patient's Advanced Care Plan is present, code status is documented, or surrogate decision maker is listed in patient medical record.: Yes Medication Reconciliation I have utilized all available resources to obtain, update and review the patients current medications (includes all prescriptions, OTC, herbals, cannabis, and nutritional supplements).: Yes The patient is not eligible for med reconciliation; the patient is in a emergent medical situation where delaying treatment would jeopardize the patients health.: No
--- NOTE | 2025-05-25 16:50 | PC.NURSE ---
Patient setting off bed alarm and wanting to go home. Patient pulling at meyer and removed stat lock. Stat lock replaced, patient walked to bathroom and currently laying in bed. This RN reoriented patient and provided distraction activities.
[2025-05-25] MEDS: QUEtiapine FUMARATE XR 50 MG TAB.ER.24H 100 MG PO (17:15)
--- NOTE | 2025-05-25 17:30 | PC.NURSE ---
Patient wanting to go home, typewriter operator automatic reoriented to situation, patient pulling at catheter and stat lock typewriter operator automatic replaced stat lock, educated on importance of catheter patient was assisted to recliner and given snack patient watching TV.
--- NOTE | 2025-05-25 19:30 | P.PNCROSS_ITS ---
Event Note Event Note Event Note: [id number] encounter with patient who was in 4 point nonviolent restraints be cause he was attempting to pull out his Viera catheter again. Patient was able to still reach his opposite hand and work to undo the restraint. Mittens placed and orders for Haldol and Benadryl entered. The charge nurse on the floor called back and stated that they cannot administer IV Haldol despite the order set that was used for medications selection. Haldol was changed from 5 mg IV to 10 mg IM via telephone order and Benadryl okay to be given either IV or IM per telephone order.
[2025-05-25] MEDS: HALOPERIDOL LACTATE 5 MG/ML VIAL 10 MG IM (19:36)
[2025-05-25 20:00] VITALS: BP 134/81; PULSE 81; RESP 20; TEMP 36.6; O2SAT 98
[2025-05-25] MEDS: TAMSULOSIN HCL 0.4 MG CAPSULE PO (21:14)
[2025-05-26 09:07] LABS: Hematocrit 29.3 % (42.0-52.0); Hemoglobin 9.4 g/dL (14.0-18.0); Mean Corpuscular HGB Conc 32.1 g/dl (32-36); Mean Corpuscular Hemoglobin 31.2 pg (26-34); Mean Corpuscular Volume 97.3 fl (80-100); Platelet Count Result 514 k/mm3 (150-375); Red Blood Count 3.01 M/mm3 (4.6-6.20); White Blood Count 8.7 K/mm3 (4.5-10.0)
[2025-05-26 09:21] LABS: Alanine Aminotransferase 17 U/L (6-50); Albumin Level 3.5 g/dL (3.5-5.1); Alkaline Phosphatase 108 U/L (38-126); Anion Gap 5 mmol/L (4-12); Aspartate Amino Transferase 38 U/L (17-59); Bilirubin,Total 0.5 mg/dL (0.2-1.3); Blood Urea Nitrogen 8 mg/dL (9-20); Calcium 8.8 mg/dL (8.4-10.2); Carbon Dioxide 27 mmol/L (22-30); Chloride 105 mmol/L (98-107); Estimated CRCL calculation 68 ml/min; Estimated Glomerular Filt Rate > 60; Glucose 107 mg/dL (65-110); Potassium 4.1 mmol/L (3.4-5.0); Sodium 137 mmol/L (137-145); Total Protein 6.2 g/dL (6.3-8.2)
[2025-05-26 09:27] VITALS: PULSE 82
[2025-05-26] MEDS: buPROPion HCL XL (24 HR) 150 MG TABCR PO (09:27)
[2025-05-26] MEDS: LACOSAMIDE (*CRX) 200 MG TABLET PO ×2 (09:27→22:15)
[2025-05-26] MEDS: DONEPEZIL HCL 10 MG TABLET PO (09:27)
[2025-05-26] MEDS: METOPROLOL SUCCINATE EXT REL 50 MG TABCR PO (09:27)
[2025-05-26] MEDS: ATORVASTATIN 40 MG TABLET PO (09:27)
[2025-05-26] MEDS: ACETAMINOPHEN 325 MG TABLET 650 MG PO (09:27)
[2025-05-26] MEDS: CIPROFLOXACIN 500 MG TAB PO ×2 (09:27→22:15)
[2025-05-26 09:30] VITALS: BP 142/92; PULSE 102; RESP 12; TEMP 36.4; O2SAT 100
--- NOTE | 2025-05-26 13:23 | P.PNUR_ITS ---
Progress Note: A&P Assessment and Plan (1) Urinary retention: Code(s): R33.9 - Retention of urine, unspecified Status: Acute Assessment and Plan: - discharge with Meyer catheter. Flush p.r.n. for hematuria. - He should follow up shabnam in the clinic to get set up for urodynamics As he has failed at least 2 voiding trials at this point. -continue flomax and discharged with this medication. -monitor and re-direct to make sure he doesnt self extract meyer cath -we will follow peripherally. please contact us if needed. Subjective Subjective Date/Time Seen: 05/26/25 13:23 Interval history: Patient evaluated in no acute distress. he is asleep with cee vest on. Review of Systems Review of Systems: All systems reviewed & are unremarkable except as noted in HPI and below ROS unobtainable: Yes unobtainable due to mental status Exam Narrative: General: The patient is well-developed in no acute distress. Appears comfortable on exam. HEENT: Normocephalic, normal ear and nose structures Skin: Warm, dry, with no lesions seen on visible skin Lungs: Normal respiratory effort Heart: Appears well perfused Abdomen: Nondistended Suprapubic area: Nondistended : Meyer draining clear yellow Extremities: Upper with no deformities. Lower - no edema Neurologic: The patient is oriented to person. Easily redirected. Normal mood and affect. Objective Data Vital Signs Vital Signs: Vital Signs - 24 hr 05/25/25 20:00 05/25/25 20:00 05/26/25 09:20 Temperature 97.9 F Pulse Rate 81 Respiratory Rate 20 Blood Pressure 134/81 Pulse Oximetry 98 98 Oxygen Delivery Room Air Room Air 05/26/25 09:27 05/26/25 09:30 Temperature 97.5 F L Pulse Rate 82 102 H Respiratory Rate 12 Blood Pressure 142/92 H Pulse Oximetry 100 Oxygen Delivery Intake/Output Intake/Output: Intake & Output 05/23/25 05/24/25 05/25/25 05/26/25 23:59 23:59 23:59 23:59 Intake Total 283 987 5813 120 Output Total 2145 756 939 0103 Balance -1445 105 640 -880 Meds/Results Medications: Active Medications Generic Name Dose Route Start Last Admin Trade Name Freq PRN Reason Stop Dose Admin Acetaminophen 650 mg 05/09/25 13:23 05/26/25 09:27 Acetaminophen 325 Mg Tablet PO 650 mg Q6H PRN Administration Pain Rated 1-3 Apixaban 5 mg 05/22/25 09:15 05/25/25 08:15 Apixaban 5 Mg Tablet PO 5 mg On Hold: 05/25/25 13:18 Q12HR JUSTINA Administration Atorvastatin Calcium 40 mg 05/10/25 09:00 05/26/25 09:27 Atorvastatin 40 Mg Tablet PO 40 mg DAILY JUSTINA Administration Bupropion HCl 150 mg 05/10/25 09:00 05/26/25 09:27 Bupropion Hcl Xl (24 Hr) 150 Mg Tabcr PO 150 mg DAILY JUSTINA Administration Ciprofloxacin 500 mg 05/13/25 21:00 05/26/25 09:27 Ciprofloxacin 500 Mg Tab PO 06/01/25 23:59 500 mg Q12HR JUSTINA Administration Donepezil HCl 10 mg 05/10/25 09:00 05/26/25 09:27 Donepezil Hcl 10 Mg Tablet PO 10 mg DAILY JUSTINA Administration Ferrous Gluconate 324 mg 05/18/25 12:00 05/20/25 13:56 Ferrous Gluconate 324 Mg Tablet PO Not Given On Hold: 05/21/25 06:59 DAILY@1200 [facility] Hydralazine HCl 10 mg 05/13/25 05:42 05/13/25 05:59 Hydralazine Hcl 20 Mg/Ml Vial IV PUSH 10 mg Q4H PRN Administration SYSTOLIC BP >160 Lacosamide 200 mg 05/09/25 22:35 05/26/25 09:27 Lacosamide (*Crx) 200 Mg Tablet PO 200 mg Q12HR JUSTINA Administration Lisinopril 40 mg 05/10/25 09:00 05/26/25 09:26 Lisinopril 20 Mg Tablet PO 40 mg QAM JUSTINA Administration Metoprolol Succinate 50 mg 05/10/25 09:00 05/26/25 09:27 Metoprolol Succinate Ext Rel 50 Mg Tabcr PO 50 mg DAILY JUSTINA Administration Ondansetron HCl 4 mg 05/09/25 13:24 Ondansetron Hcl Odt 4 Mg Tablet PO Q4H PRN Nausea And Vomiting Ondansetron HCl 4 mg 05/11/25 12:01 Ondansetron Inj 4 Mg/2 Ml Vial IV PUSH ONCE PRN Nausea Quetiapine Fumarate 25 mg 05/20/25 14:03 05/25/25 21:16 Quetiapine Fumarate 25 Mg Tablet PO 25 mg Q12HR PRN Administration agitation Quetiapine Fumarate 100 mg 05/23/25 18:00 05/25/25 17:15 Quetiapine Fumarate Xr 50 Mg Tab.Er.24h PO 100 mg EVENING JUSTINA Administration Tamsulosin HCl 0.4 mg 05/20/25 21:00 05/25/25 21:14 Tamsulosin Hcl 0.4 Mg Capsule PO 0.4 mg HS JUSTINA Administration Radiology Results: ITS Impressions Chest/Abdomen/Pelvis CT 05/09/25 12:34 IMPRESSION: 1. Prostatomegaly with surrounding from trace stranding also extending around the bilateral seminal vesicles which raises concern for prostatitis. 2. No acute cardiopulmonary disease or other acute intra-abdominal/pelvic process. Chest X-Ray 05/19/25 11:58 IMPRESSION: No acute process. Head CT 05/19/25 12:13 IMPRESSION: 1. No significant interval change. Bilateral lacunar infarcts, as detailed above. 2. Other chronic findings including parenchymal atrophy and chronic small vessel ischemic changes. Labs Labs: Laboratory Results - last 24 hr 05/26/25 08:53 WBC 8.7 RBC 3.01 L Hgb 9.4 L Hct 29.3 L MCV 97.3 MCH 31.2 MCHC 32.1 RDW 16.4 H Plt Count 514 H MPV 8.2 Sodium 137 Potassium 4.1 Chloride 105 Carbon Dioxide 27 Anion Gap 5 BUN 8 L Creatinine 0.81 Estim Creat Clear Calc 68 Estimated GFR > 60 Glucose 107 Calcium 8.8 Total Bilirubin 0.5 AST 38 ALT 17 Alkaline Phosphatase 108 Total Protein 6.2 L Albumin 3.5
--- NOTE | 2025-05-26 14:43 | P.PNIM_ITS ---
Progress Note: A&P Assessment and Plan (1) Urinary retention: Code(s): R33.9 - Retention of urine, unspecified <Aaron SusanSara Rodriguez Student - Last Filed: 05/26/25 15:22> Status: Acute <Aaron Penningtonmaribel Student - Last Filed: 05/26/25 15:22> Assessment and Plan: - plan to discharge to custodial with Meyer catheter. Flush p.r.n. for hematuria. - He should follow up shabnam in the clinic to get set up for urodynamics As he has failed at least 2 voiding trials at this point. -continue flomax and discharge with this medication. -monitor and re-direct to make sure he doesnt self extract emyer cath -we will follow peripherally. please contact us if needed. <Aaron Rodriguez Student - Last Filed: 05/26/25 15:22> * plan to discharge to custodial with Meyer catheter. Flush p.r.n. for hematuria. * He should follow up hsabnam in the clinic to get set up for urodynamics As he has failed at least 2 voiding trials at this point. * continue flomax and discharge with this medication. * monitor and re-direct to make sure he doesn't self extract meyer cath * we will follow peripherally. please contact us if needed. <Teri Mancuso, CHEESE PANCAKE ROLLER - Last Filed: 05/26/25 15:23> (2) AMS (altered mental status): Qualifiers: Altered mental status type: delirium Qualified Code(s): R41 .0 - Disorientation, unspecified <Aaron Rodriguez Student - Last Filed: 05/26/25 15:22> Code(s): R41.82 - Altered mental status, unspecified <Aaron Rodriguez Student - Last Filed: 05/26/25 15:22> Status: Acute <Aaron Rodriguez, Student - Last Filed: 05/26/25 15:22> Assessment and Plan: Head CT, 05/09 with no acute process, old lacunar infarcts in the R basal ganglia and coronal radiata of the bilateral frontal and right parietal lobes. Age- related changes,recent dx of CVA on 04/23. MRI showed a small acute infarct at the genu of the right corpus callosum and several old lacunar infarcts at the right basal ganglia and right frontal and parietal lobe dobbins radiata. developed agitation during last admission, thought to be secondary to CVA vs. side effect of Keppra so was transitioned to Lacosamide, suspect patient has developed vascular dementia in setting of recent CVA. Continue Aricept. patient had episode of altered consciousness in the bathroom with rapid response 05/19 (see note), most likely orthostatic event/vasovagal, less likely seizure or CVA, neuro in agreement. -UDS + for cannabis 04/22 -management of UTI as below -initially started on Zyprexa, concern for EPS noted 05/19, psych reconsulted and recommended switching to Seroquel. EPS resolved. Patient still with intermittent agitation requiring restraints. Discussed with psych 05/23 and changed to Seroquel XR 100mg in the evening, continue Seroquel 25mg BID PRN. Patient has been stable after med changes. - awaiting SNF placement 05/26/2025 * Increased agitation last night * Added trazodone 50mg HS PRN sleep * Avoid restraints when possible <Aaron Rodriguez, Student - Last Filed: 05/26/25 15:22> (3) Prostatitis: Qualifiers: Prostatitis type: acute Qualified Code(s): N41.0 - Acute prostatitis <Aaron Rodriguez, Student - Last Filed: 05/26/25 15:22> Code(s): N41.9 - Inflammatory disease of prostate, unspecified <Aaron Rodriguez, Student - Last Filed: 05/26/25 15:22> Status: Acute <Aaron Rodriguez, Student - Last Filed: 05/26/25 15:22> Assessment and Plan: -CT showed indicators of prostatitis - UA consistent with infection -Urine culture was collected, but apparently never received by [facility] -urology following -Started on Ciprofloxacin IV switched to Oral on 05/13, end date 06/01 per urology recs <Aaron Rodriguez, Student - Last Filed: 05/26/25 15:22> CT showed indicators of prostatitis - UA consistent with infection -Urine culture was collected, but apparently never received by [facility] -urology following -Started on Ciprofloxacin IV switched to Oral on 05/13, end date 06/01 per urology recs <Teri Mancuso, CHEESE PANCAKE ROLLER - Last Filed: 05/26/25 15:23> (4) Anemia: Qualifiers: Anemia type: unspecified type Qualified Code(s): D64.9 - Anemia, unspecified <Aaron Rodriguez, Student - Last Filed: 05/26/25 15:22> Code(s): D64.9 - Anemia, unspecified <Aaron Rodriguez, Student - Last Filed: 05/26/25 15:22> Status: Acute <Aaron Rodriguez, Student - Last Filed: 05/26/25 15:22> Assessment and Plan: -Hgb 12.3 upon admission on 05/09. 15.7 at discharge on 04/29. -iron and iron saturation low - acute drop likely secondary to hematuria in setting of Meyer trauma -Of note, recently started on Eliquis and Plavix secondary to acute stroke earlier this month - 05/23: Hgb 9.4. Improving. - oncology following and recommended IV Venofer. Received 3 doses. - Hgb stable. Eliquis restarted 05/22. Monitor for signs of bleeding. Hold Eliquis. Recheck H&H in morning. 05/26/2025 * No evidence of bleeding today * H&H reviewed, recheck in am * Restarted eliquis <Aaron Rodriguez, Student - Last Filed: 05/26/25 15:22> Hgb 12.3 upon admission on 05/09. 15.7 at discharge on 04/29. * iron and iron saturation low * acute drop likely secondary to hematuria in setting of Meyer trauma * Of note, recently started on Eliquis and Plavix secondary to acute stroke earlier this month * 05/23: Hgb 9.4. Improving. * oncology following and recommended IV Venofer. Received 3 doses. * Hgb stable. Eliquis restarted 05/22. Monitor for signs of bleeding. * Held Eliquis. No evidence of bleeding today * H&H reviewed, recheck in am * Restarted eliquis <Teri Mancuso APRN - Last Filed: 05/26/25 15:23> (5) Seizure disorder: Code(s): G40.909 - Epilepsy, unspecified, not intractable, without status epilepticus <Aaron Rodriguez, Student - Last Filed: 05/26/25 15:22> Status: Chronic <Aaron Rodriguez, Student - Last Filed: 05/26/25 15:22> Assessment and Plan: -EEG 05/21 unremarkable -continue lacosamide (switched from Keppra due to agitation on last admit) <Aaron Rodriguez, - Last Filed: 05/26/25 15:22> EEG 05/21 unremarkable -continue lacosamide but switched from Keppra due to agitation on last admit <Teri Mancuso, CHEESE PANCAKE ROLLER - Last Filed: 05/26/25 15:23> (6) Atrial fibrillation: Qualifiers: Atrial fibrillation type: unspecified chronic Qualified Code(s): I48.20 - Chronic atrial fibrillation, unspecified <Aaron Rodriguez, Student - Last Filed: 05/26/25 15:22> Code(s): I48.91 - Unspecified atrial fibrillation <Aaron Rodriguez, Student - Last Filed: 05/26/25 15:22> Status: Chronic <Aaron Rodriguez, Student - Last Filed: 05/26/25 15:22> Assessment and Plan: -continue metoprolol, Eliquis <Aaron Rodriguez, Student - Last Filed: 05/26/25 15:22> -continue metoprolol, Eliquis <Teri Mancuso, CHEESE PANCAKE ROLLER - Last Filed: 05/26/25 15:23> (7) Hypertension: Qualifiers: Hypertension type: essential hypertension Qualified Code(s): I10 - Essential (primary) hypertension <Aaron Rodriguez, Student - Last Filed: 05/26/25 15:22> Code(s): I10 - Essential (primary) hypertension <Aaron Rodriguez, Student - Last Filed: 05/26/25 15:22> Status: Chronic <Aaron Rodriguez, Student - Last Filed: 05/26/25 15:22> Assessment and Plan: -chronic -continue home medications: Lisinopril, metoprolol -monitor <Aaron Rodriguez, Student - Last Filed: 05/26/25 15:22> -continue home medications: Lisinopril, metoprolol -monitor <Teri Mancuso, CHEESE PANCAKE ROLLER - Last Filed: 05/26/25 15:23> (8) Thrombocytosis: Code(s): D75.839 - Thrombocytosis, unspecified <Aaron Rodriguez, Student - Last Filed: 05/26/25 15:22> Status: Acute <Aaron Rodriguez, Student - Last Filed: 05/26/25 15:22> Assessment and Plan: -admit Plts 317, trended up to peak 617 -Could be 2/2 underlying anemia, prostatitis, UTI -No splenomegaly on exam -consulted hematology, suspect reactive thrombocytosis, no further work-up necessary - improving - monitor CBC <Aaron Rodriguez, Student - Last Filed: 05/26/25 15:22> admit Plts 317, trended up to peak 617 -Could be 2/2 underlying anemia, prostatitis, UTI -No splenomegaly on exam -consulted hematology, suspect reactive thrombocytosis, no further work-up necessary - improving - monitor CBC <Teri Mancuso, CHEESE PANCAKE ROLLER - Last Filed: 05/26/25 15:23> (9) History of CVA (cerebrovascular accident): Code(s): Z86.73 - Personal history of transient ischemic attack (TIA), and cerebral infarction without residual deficits <Aaron Rodriguez, Student - Last Filed: 05/26/25 15:22> Status: Chronic <Aaron Rodriguez, Student - Last Filed: 05/26/25 15:22> Assessment and Plan: -Brain MRI, 04/23 with small acute infarct at the genu of the right corpus callosum, several old lacunar infarcts, multiple small foci of susceptibility artifact scattered throughout the brain including the cerebral hemispheres, midbrain and cerebellum consistent with chronic microhemorrhage typically seen in the setting of hypertension but can also be seen with amyloid angiopathy. -worsening AMS likely secondary to UTI, however could be sequela of recent CVA. started on abx, monitor response. -discussed with Dr. Miguel falk to stop ASA, Plavix as patient was found to have Afib on last admission. Eliquis held due to Meyer trauma. Restarted 05/22. - Neurology reconsulted due to episode of altered consciousness 05/19, suspect vasovagal event <Aaron Rodriguez, Student - Last Filed: 05/26/25 15:22> Brain MRI, 04/23 with small acute infarct at the genu of the right corpus callosum, several old lacunar infarcts, multiple small foci of susceptibility artifact scattered throughout the brain including the cerebral hemispheres, midbrain and cerebellum consistent with chronic microhemorrhage typically seen in the setting of hypertension but can also be seen with amyloid angiopathy. -worsening AMS likely secondary to UTI, however could be sequela of recent CVA. started on abx, monitor response. -discussed with Dr. Miguel falk to stop ASA, Plavix as patient was found to have Afib on last admission. Eliquis held due to Meyer trauma. Restarted 05/22. - Neurology reconsulted due to episode of altered consciousness 05/19, suspect vasovagal event <Teri Mancuso APRN - Last Filed: 05/26/25 15:23> (10) Sepsis: Code(s): A41.9 - Sepsis, unspecified organism <Aaron Rodriguez Student - Last Filed: 05/26/25 15:22> Status: Resolved <Aaron Rodriguez Student - Last Filed: 05/26/25 15:22> Assessment and Plan: -sepsis present on admission as evidenced by tachycardia, tachypnea, leukocytosis -source: UTI with possible prostatitis -management of UTI as below - Urine culture was sent however apparently never received by [facility] -WBC down from 27.9 on admission, now normalized -Blood cultures negative for growth - final - sepsis resolved <Aaron Rodriguez Student - Last Filed: 05/26/25 15:22> Assessment and Plan: DVT Prophylaxis: Eliquis Disposition: SNF, hopefully 1-2 days Code Status: Full code <Aaron Rodriguez Student - Last Filed: 05/26/25 15:22> Code status: Full code per patient DVT prophylaxis: Lovenox Stress ulcer prophylaxis: Protonix 40 daily PT/OT notes: SNF Disposition: Patient continues admission to the medical unit awaiting insurance authorization for placement to detention facility due to new chronic Meyer did have episode of agitation with medication adjustments doing better today will need to observe overnight with new medications. Can hopefully discharge to detention facility tomorrow resumed Eliquis follow-up H&H in the a.m. <Teri Mancuso APRN - Last Filed: 05/26/25 15:23> Time Spent With Patient Time with patient: 25 - 35 minutes <Aaron Rodriguez Student - Last Filed: 05/26/25 15:22> Subjective Date/time seen: 05/26/25 1310 <Aaron Rodriguez Student - Last Filed: 05/26/25 15:22> Interval history: Patient had an episode of agitation overnight requiring him to be placed in restraints with a safety council director. Today during evaluation the patient is in no distress. I removed the remaining two limb restraints and the patient was cooperative with the remainder of the assessment. Patient was set up for and ate his lunch without further issue. I discussed the importance of avoiding interaction with the meyer catheter and the patient expressed his understanding. <Aaron Rodriguez Student - Last Filed: 05/26/25 15:22> 05/26/2025: Patient had an episode of agitation overnight requiring him to be placed in restraints with a safety council director. Today during evaluation the patient is in no distress. I removed the remaining two limb restraints and the patient was cooperative with the remainder of the assessment. Patient was set up for and ate his lunch without further issue. I discussed the importance of avoiding interaction with the meyer catheter and the patient expressed his understanding. No other complaints at this time. Patient was calm and cooperative and was alert to person and place. <Teri Mancuso, CHEESE PANCAKE ROLLER - Last Filed: 05/26/25 15:23> Review of Systems Review of Systems: All systems reviewed & are unremarkable except as noted in HPI and below <Aaron Rodriguez Student - Last Filed: 05/26/25 15:22> Exam Const: General: comfortable and no acute distress <Aaron Rodriguez Student - Last Filed: 05/26/25 15:22> HENMT: Ears: TM's normal bilaterally <Aaron Rodriguez Student - Last Filed: 05/26/25 15:22> Face/Nose/Sinus: Normal nares present <Aaron Rodriguez Student - Last Filed: 05/26/25 15:22> Mouth: Yes moist mucous membranes <Aaron Rodriguez Student - Last Filed: 05/26/25 15:22> Eyes: General: appearance normal, both eyes and all related structures <Aaron W. Ketterer, Student - Last Filed: 05/26/25 15:22> Sclera: sclerae normal <Aaronjody Rodriguez - Last Filed: 05/26/25 15:22> Pupils: Equal, round and reactive pupils present <Aaron SusanSara Aditimaribel, - Last Filed: 05/26/25 15:22> Neck: Neck: supple and no JVD <Aaronjody Rodriguez - Last Filed: 05/26/25 15:22> Resp: Effort & Inspection: normal respiratory effort <Aaronjody Rodriguez - Last Filed: 05/26/25 15:22> Cardio: Rate: regular rate <Aaron Rodriguez - Last Filed: 05/26/25 15:22> Rhythm: regular rhythm <Aaronjody Rodriguez, - Last Filed: 05/26/25 15:22> GI: GI Palp: Yes Soft to palpation <Aaron Rodriguez - Last Filed: 05/26/25 15:22> Auscultation: normal bowel sounds <Aaronjody Rodriguez - Last Filed: 05/26/25 15:22> Urinary Catheter: Urinary Catheter: patent and draining and urine clear <Aaron Rodriguez - Last Filed: 05/26/25 15:22> Skin: General skin exam: normal color <aAron Rodriguez - Last Filed: 05/26/25 15:22> Wounds: no wounds <Aaron Rodriguez - Last Filed: 05/26/25 15:22> Neuro: Speech: normal speech <Aaron Rodriguez - Last Filed: 05/26/25 15:22> Motor exam (neuro): 5/5 motor strength present throughout <Aaron Rodriguez - Last Filed: 05/26/25 15:22> Sensory Exam: normal sensation <Aaron Rodriguez, - Last Filed: 05/26/25 15:22> Extrem: General: normal to inspection <Aaron Rodriguez - Last Filed: 05/26/25 15:22> Psych: Speech and movement: Clear speech present <Aaron Rodriguez - Last Filed: 05/26/25 15:22> Affect: Animated affect present <Aaron Rodriguez - Last Filed: 05/26/25 15:22> Attitude: cooperative <Aaron Rodriguez - Last Filed: 05/26/25 15:22> Thought process: Normal thought process present <Aaron Rodriguez - Last Filed: 05/26/25 15:22> Thought content: Yes Normal thought content present <Aaron Rodriguez - Last Filed: 05/26/25 15:22> Insight: Fair insight present (Psych) <Aaron Rodriguez - Last Filed: 05/26/25 15:22> Judgement: Fair judgement present (Psych) <Aaron Rodriguez Last Filed: 05/26/25 15:22> Objective Data Vital Signs Vital Signs: Vital Signs - 24 hr 05/25/25 20:00 05/25/25 20:00 05/26/25 09:20 Temperature 97.9 F Pulse Rate 81 Respiratory Rate 20 Blood Pressure 134/81 Pulse Oximetry 98 98 Oxygen Delivery Room Air Room Air 05/26/25 09:27 05/26/25 09:30 Temperature 97.5 F L Pulse Rate 82 102 H Respiratory Rate 12 Blood Pressure 142/92 H Pulse Oximetry 100 Oxygen Delivery <Aaron Rodriguez Last Filed: 05/26/25 15:22> Intake/Output Intake/Output: Intake & Output 05/23/25 05/24/25 05/25/25 05/26/25 23:59 23:59 23:59 23:59 Intake Total 025 446 5541 120 Output Total 2145 678 141 3464 Balance -1445 105 640 -880 <Aaron Rodriguez - Last Filed: 05/26/25 15:22> Meds/Results Medications: Active Medications Generic Name Dose Route Start Last Admin Trade Name Freq PRN Reason Stop Dose Admin Acetaminophen 650 mg 05/09/25 13:23 05/26/25 09:27 Acetaminophen 325 Mg Tablet PO 650 mg Q6H PRN Administration Pain Rated 1-3 Apixaban 5 mg 05/22/25 09:15 05/25/25 08:15 Apixaban 5 Mg Tablet PO 5 mg On Hold: 05/25/25 13:18 Q12HR JUSTINA Administration Atorvastatin Calcium 40 mg 05/10/25 09:00 05/26/25 09:27 Atorvastatin 40 Mg Tablet PO 40 mg DAILY JUSTINA Administration Bupropion HCl 150 mg 05/10/25 09:00 05/26/25 09:27 Bupropion Hcl Xl (24 Hr) 150 Mg Tabcr PO 150 mg DAILY JUSTINA Administration Ciprofloxacin 500 mg 05/13/25 21:00 05/26/25 09:27 Ciprofloxacin 500 Mg Tab PO 06/01/25 23:59 500 mg Q12HR JUSTINA Administration Donepezil HCl 10 mg 05/10/25 09:00 05/26/25 09:27 Donepezil Hcl 10 Mg Tablet PO 10 mg DAILY [facility] Administration Ferrous Gluconate 324 mg 05/18/25 12:00 05/20/25 13:56 Ferrous Gluconate 324 Mg Tablet PO Not Given On Hold: 05/21/25 06:59 DAILY@1200 [facility] Hydralazine HCl 10 mg 05/13/25 05:42 05/13/25 05:59 Hydralazine Hcl 20 Mg/Ml Vial IV PUSH 10 mg Q4H PRN Administration SYSTOLIC BP >160 Lacosamide 200 mg 05/09/25 22:35 05/26/25 09:27 Lacosamide (*Crx) 200 Mg Tablet PO 200 mg Q12HR JUSTINA Administration Lisinopril 40 mg 05/10/25 09:00 05/26/25 09:26 Lisinopril 20 Mg Tablet PO 40 mg QAM [facility] Administration Metoprolol Succinate 50 mg 05/10/25 09:00 05/26/25 09:27 Metoprolol Succinate Ext Rel 50 Mg Tabcr PO 50 mg DAILY [facility] Administration Ondansetron HCl 4 mg 05/09/25 13:24 Ondansetron Hcl Odt 4 Mg Tablet PO Q4H PRN Nausea And Vomiting Ondansetron HCl 4 mg 05/11/25 12:01 Ondansetron Inj 4 Mg/2 Ml Vial IV PUSH ONCE PRN Nausea Quetiapine Fumarate 25 mg 05/20/25 14:03 05/25/25 21:16 Quetiapine Fumarate 25 Mg Tablet PO 25 mg Q12HR PRN Administration agitation Quetiapine Fumarate 100 mg 05/23/25 18:00 05/25/25 17:15 Quetiapine Fumarate Xr 50 Mg Tab.Er.24h PO 100 mg EVENING JUSTINA Administration Tamsulosin HCl 0.4 mg 05/20/25 21:00 05/25/25 21:14 Tamsulosin Hcl 0.4 Mg Capsule PO 0.4 mg HS JUSTINA Administration Trazodone HCl 50 mg 05/26/25 21:00 Trazodone Hcl 50 Mg Tablet PO HS JUSTINA <Aaron Rodriguez, Student - Last Filed: 05/26/25 15:22> Radiology Results: ITS Impressions Chest/Abdomen/Pelvis CT 05/09/25 12:34 IMPRESSION: 1. Prostatomegaly with surrounding from trace stranding also extending around the bilateral seminal vesicles which raises concern for prostatitis. 2. No acute cardiopulmonary disease or other acute intra-abdominal/pelvic process. Chest X-Ray 05/19/25 11:58 IMPRESSION: No acute process. Head CT 05/19/25 12:13 IMPRESSION: 1. No significant interval change. Bilateral lacunar infarcts, as detailed above. 2. Other chronic findings including parenchymal atrophy and chronic small vessel ischemic changes. <Aaron Rodriguez, Student - Last Filed: 05/26/25 15:22> Labs Labs: Laboratory Results - last 24 hr 05/26/25 08:53 WBC 8.7 RBC 3.01 L Hgb 9.4 L Hct 29.3 L MCV 97.3 MCH 31.2 MCHC 32.1 RDW 16.4 H Plt Count 514 H MPV 8.2 Sodium 137 Potassium 4.1 Chloride 105 Carbon Dioxide 27 Anion Gap 5 BUN 8 L Creatinine 0.81 Estim Creat Clear Calc 68 Estimated GFR > 60 Glucose 107 Calcium 8.8 Total Bilirubin 0.5 AST 38 ALT 17 Alkaline Phosphatase 108 Total Protein 6.2 L Albumin 3.5 <Aaron Rodriguez, Student - Last Filed: 05/26/25 15:22> Quality VTE Prophylaxis VTE prophylaxis: pharmacologic ordered <Aaron Rodriguez, Student - Last Filed: 05/26/25 15:22> -Patient's previous records reviewed on admission -ER notes reviewed in detail on admission -discussed all findings and current treatment plan with patient/Family/POA -Consultations reviewed for recommendations -Patient's disposition for safe discharge discussed with gearcase assembler Dictation performed by [employer] direct speech recognition software, therefore clinic director variants and typographical errors may occur. <Teri Mancuso, CHEESE PANCAKE ROLLER - Last Filed: 05/26/25 15:23> Hospitalist [facility] Advance Care Plan I have confirmed that the patient's Advanced Care Plan is present, code status is documented, or surrogate decision maker is listed in patient medical record.: Yes <Aaron Rodriguez Student - Last Filed: 05/26/25 15:22> Medication Reconciliation I have utilized all available resources to obtain, update and review the patients current medications (includes all prescriptions, OTC, herbals, cannabis, and nutritional supplements).: Yes <Aaron Rodriguez Student - Last Filed: 05/26/25 15:22> The patient is not eligible for med reconciliation; the patient is in a emergent medical situation where delaying treatment would jeopardize the patients health.: No <Aaron Rodriguez Student - Last Filed: 05/26/25 15:22> Attestation Student Attestation Documented under the supervision of Teri Mancuso PIE CRIMPING MACHINE OPERATOR. <Aaron Rodriguez Student - Last Filed: 05/26/25 15:22> Supervising Provider Attestation I have personally reviewed and assessed patient agree with the following documen tation <Teri Mancuso, CHEESE PANCAKE ROLLER - Last Filed: 05/26/25 15:23>
[2025-05-26] MEDS: QUEtiapine FUMARATE XR 50 MG TAB.ER.24H 100 MG PO (17:35)
[2025-05-26 20:00] VITALS: BP 149/86; PULSE 92; RESP 20; TEMP 36.4; O2SAT 100
[2025-05-26] MEDS: APIXABAN 5 MG TABLET PO (22:14)
[2025-05-26] MEDS: TAMSULOSIN HCL 0.4 MG CAPSULE PO (22:15)
[2025-05-27 05:26] LABS: Hematocrit 29.9 % (42.0-52.0); Hemoglobin 9.4 g/dL (14.0-18.0); Mean Corpuscular HGB Conc 31.4 g/dl (32-36); Mean Corpuscular Hemoglobin 31.0 pg (26-34); Mean Corpuscular Volume 98.7 fl (80-100); Platelet Count Result 487 k/mm3 (150-375); Red Blood Count 3.03 M/mm3 (4.6-6.20); White Blood Count 6.7 K/mm3 (4.5-10.0)
[2025-05-27 05:41] LABS: Alanine Aminotransferase 16 U/L (6-50); Albumin Level 3.4 g/dL (3.5-5.1); Alkaline Phosphatase 107 U/L (38-126); Anion Gap 6 mmol/L (4-12); Aspartate Amino Transferase 34 U/L (17-59); Bilirubin,Total 0.6 mg/dL (0.2-1.3); Blood Urea Nitrogen 11 mg/dL (9-20); Calcium 8.6 mg/dL (8.4-10.2); Carbon Dioxide 22 mmol/L (22-30); Chloride 106 mmol/L (98-107); Estimated CRCL calculation 67 ml/min; Estimated Glomerular Filt Rate > 60; Glucose 104 mg/dL (65-110); Potassium 3.7 mmol/L (3.4-5.0); Sodium 134 mmol/L (137-145); Total Protein 6.2 g/dL (6.3-8.2)
[2025-05-27 08:08] VITALS: O2SAT 99
[2025-05-27 08:23] VITALS: PULSE 80
[2025-05-27] MEDS: CIPROFLOXACIN 500 MG TAB PO (08:23)
[2025-05-27] MEDS: METOPROLOL SUCCINATE EXT REL 50 MG TABCR PO (08:23)
[2025-05-27] MEDS: buPROPion HCL XL (24 HR) 150 MG TABCR PO (08:23)
[2025-05-27] MEDS: ATORVASTATIN 40 MG TABLET PO (08:23)
[2025-05-27] MEDS: LACOSAMIDE (*CRX) 200 MG TABLET PO (08:23)
[2025-05-27] MEDS: APIXABAN 5 MG TABLET PO (08:23)
[2025-05-27] MEDS: DONEPEZIL HCL 10 MG TABLET PO (08:23)
[2025-05-27 10:52] VITALS: BP 125/72; PULSE 73; RESP 16; TEMP 36.5; O2SAT 100
--- NOTE | 2025-05-27 12:13 | P.DS_ITS ---
DS: Admitting Diagnosis Discharge Date 05/27/2025 Admitting Diagnosis AMS/Urinary retention/Prostatisis/anemia DS: Discharge Diagnosis Discharge Diagnosis (1) Urinary retention: Code(s): R33.9 - Retention of urine, unspecified Status: Acute (2) AMS (altered mental status): Qualifiers: Altered mental status type: delirium Qualified Code(s): R41.0 - Disorientation, unspecified Code(s): R41.82 - Altered mental status, unspecified Status: Acute (3) Prostatitis: Qualifiers: Prostatitis type: acute Qualified Code(s): N41.0 - Acute prostatitis Code(s): N41.9 - Inflammatory disease of prostate, unspecified Status: Acute (4) Anemia: Qualifiers: Anemia type: unspecified type Qualified Code(s): D64.9 - Anemia, unspecified Code(s): D64.9 - Anemia, unspecified Status: Acute (5) Seizure disorder: Code(s): G40.909 - Epilepsy, unspecified, not intractable, without status epilepticus Status: Chronic (6) Atrial fibrillation: Qualifiers: Atrial fibrillation type: unspecified chronic Qualified Code(s): I48.20 - Chronic atrial fibrillation, unspecified Code(s): I48.91 - Unspecified atrial fibrillation Status: Chronic (7) Hypertension: Qualifiers: Hypertension type: essential hypertension Qualified Code(s): I10 - Essential (primary) hypertension Code(s): I10 - Essential (primary) hypertension Status: Chronic (8) Thrombocytosis: Code(s): D75.839 - Thrombocytosis, unspecified Status: Acute (9) History of CVA (cerebrovascular accident): Code(s): Z86.73 - Personal history of transient ischemic attack (TIA), and cerebral infa rction without residual deficits Status: Chronic (10) Sepsis: Code(s): A41.9 - Sepsis, unspecified organism Status: Resolved DS: Summary Hospital Course Reason for hospitalization: AMS/Urinary retention/Prostatisis/anemia Hospital Course: Admission: Patient was a 69 y/o M with PMH of recent CVA, atrial fibrillation, and HTN presents here with AMS. The patient presented to the ED from home via EMS for further evaluation of altered mental status. 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 He was discharged on triple therapy on 04/25 to home. Shortly after arrival home he smoked marijuana and he returned to the hospital for re-evaluation as he was unresponsive per his . At the time she reported his body had went rigid for several minutes and was acutely altered when he regained consciousness. He was re-evaluated by Neurology during it his 2nd admission. During the course of his admission he became more agitated which Neurology felt may be related to the Keppra and he was transition to lacosamide verses a manifestation of the stroke. The patient was also evaluated by Psychiatry who felt he would benefit from a neuro psychological evaluation in the outpatient setting. He is now returning today for re-evaluation for altered mental status, nausea, and vomiting. The patient's provided majority of the following history. She reports over the last few days? it has been increasingly difficult to care for the patient due to confusion. The patient denies any current nausea or vomiting, abdominal pain, chest pain, shortness of breath, diarrhea, burning with urination, or fever. Reporting urinary frequency and chills. In the ED: WBC 21.2, hemoglobin 12.3, INR 1.3, sodium 132, creatinine 0.87 and GFR >60, glucose 184, initial troponin negative, UA suspicious for UTI. Head CT showed few old lacunar infarcts in the right basal ganglia and the coronal radiata of the bilateral frontal and right parietal lobes, no acute intracranial process, age-related changes. CT of the chest/abdomen/pelvis so prostatomegaly with surrounding trace stranding also extending around the bilateral seminal vesicles which raises concern for prostatitis, no acute cardiopulmonary disease or other acute intra-abdominal/pelvic process. Hospital Course Patient was admitted to the medical unit for further evaluation of acute AMS and found to have urinary retention likely secondary to prostatitis and BPH. Urology had been consulted and recommended discharging to half-way with Meyer catheter. Flush p.r.n. for hematuria with follow ups shabnam in the clinic to get set up for urodynamics As he has failed at least 2 voiding trials at this point and holding his eliquies secondary to continued hematuria after resuming during his hospitalization. Patient was to continue his flomax at discharge and will need close monitoring and re-direct to make sure he doesn't self extract meyer cath. His prostatisis was treated with cipro and discharged on oral cipro. Regarding patient AMS head CT, 05/09 with no acute process, old lacunar infarcts in the R basal ganglia and coronal radiata of the bilateral frontal and right parietal lobes. Age-related changes,recent dx of CVA on 04/23. MRI showed a small acute infarct at the genu of the right corpus callosum and several old lacunar infarcts at the right basal ganglia and right frontal and p arietal lobe dobbins radiata. developed agitation during last admission, thought to be secondary to CVA vs. side effect of Keppra so was transitioned to Lacosamide, suspect patient has developed vascular dementia in setting of recent CVA. Continue Aricept. patient had episode of altered consciousness in the bathroom with rapid response 05/19 (see note), most likely orthostatic event/vasovagal, less likely seizure or CVA, neuro in agreement. UDS + for cannabis 04/22 and treat underlying UTI. Patient was initially started on Zyprexa, concern for EPS noted 05/19, psych reconsulted and recommended switching to Seroquel. EPS resolved. Patient still with intermittent agitation requiring restraints. Discussed with psych 05/23 and changed to Seroquel XR 100mg in the evening, continue Seroquel 25mg BID PRN. Patient has been stable after med changes. Also added Trazadone at night to help with sleep/awake cycle. Regarding patient anemia was Hgb 12.3 upon admission on 05/09. 15.7 at discharge on 04/29. iron and iron saturation low, acute drop likely secondary to hematuria in setting of Meyer trauma oncology consulted and recommended IV Venofer. Received 3 doses. Hgb stable. Eliquis restarted ut held again due to hematuria. Patient with seizure disorder EEG 05/21 unremarkable continued lacosamide (switched from Keppra due to agitation on last admit). Patient with overall improvement to symptoms still have intermittant episodes of agitation but was improving with medication. Spoke with patient in depth about discharge plans and meyer care. Patient was seen and assessed day of discharge with no acute distress or complaints and had no further agitation. Patient was discharged to SNF with follow-up with Urology. Status at Discharge Functional status at discharge: independent ambulation Overall status at discharge: patient is back to baseline Time Spent with Patient Time attestation: Total time spent providing and/or coordinating discharge services: Time spent: Greater than 30 minutes Exam Const: General: comfortable and no acute distress Other: , male, elderly, nontoxic appearance HENMT: Face/Nose/Sinus: Normal nares present Mouth: Yes moist mucous membranes Eyes: General: appearance normal, both eyes and all related structures Sclera: sclerae normal Pupils: Equal, round and reactive pupils present EOM: EOMs intact bilaterally Neck: Neck: supple and no JVD Resp: Effort & Inspection: normal respiratory effort Auscultation: clear to auscultation bilaterally Cardio: Rate: regular rate Rhythm: regular rhythm Other: S1-S2 present without murmur, rub, ectopy GI: Auscultation: normal bowel sounds Other: Abdomen soft, nondistended, nontender. Normoactive bowel sounds in all quadrants. Urinary Catheter: Urinary Catheter: patent and draining and urine red Skin: General skin exam: normal color and no rashes or lesions noted Wounds: no wounds Neuro: Cranial nerves: Yes Equal, round and reactive pupils present Speech: normal speech Motor exam (neuro): 5/5 motor strength present throughout Sensory Exam: normal sensation Other: A/Ox3, no tremors or involuntary movements appreciated. Extrem: General: normal to inspection Psych: Mental Status: mental status grossly normal Affect: normal affect Other: Fair insight and judgment, pleasant, no agitation noted. DS: Data Data Completed and Pending Labs on day of discharge: Labs from last 24 hours 05/27/25 05/26/25 05/19/25 04:44 16:23 14:09 WBC 6.7 RBC 3.03 L Hgb 9.4 L Hct 29.9 L MCV 98.7 MCH 31.0 MCHC 31.4 L RDW 16.5 H Plt Count 487 H MPV 8.7 Sodium 134 L Potassium 3.7 Chloride 106 Carbon Dioxide 22 Anion Gap 6 BUN 11 Creatinine 0.83 Estim Creat Clear Calc 67 Estimated GFR > 60 Glucose 104 Calcium 8.6 Jaz Transferrin Receptr Pending Total Bilirubin 0.6 AST 34 ALT 16 Alkaline Phosphatase 107 Total Protein 6.2 L Albumin 3.4 L Imaging Radiologist's impression: Radiology Results: ITS Impressions Chest/Abdomen/Pelvis CT 05/09/25 12:34 IMPRESSION: 1. Prostatomegaly with surrounding from trace stranding also extending around the bilateral seminal vesicles which raises concern for prostatitis. 2. No acute cardiopulmonary disease or other acute intra-abdominal/pelvic process. Chest X-Ray 05/19/25 11:58 IMPRESSION: No acute process. Head CT 05/19/25 12:13 IMPRESSION: 1. No significant interval change. Bilateral lacunar infarcts, as detailed above. 2. Other chronic findings including parenchymal atrophy and chronic small vessel ischemic changes. Discharge Plan Discharge Attending physician on discharge: Romy James Consulting providers: Ev Yang; Augusto Guillermo; Steve Dubose; Jean Coppola; Aurea Waldron; Monica Muniz; Edilma Perez; Kirill Portillo; Teri Pearce; Kenrick Ferrera; Patricia Rodriguez; Denilson Chen; Farshad Mireles; Teri Gonzales; Kacy Hou; Guru Freedman; Armando Becerra; Khoa Zelaya; Hong Cain Discharging Clinician: Ev Yang Anticipated Discharge Date/Time: 05/27/25 11:59 Patient Disposition: SNF Activity: as tolerated Diet: regular Discharge Instructions: 1). Urinary retention/hematuria * Continue with meyer catheter * Catheter care twice a day * Flush catheter as needed * Will need to schedule follow-up appointment with [facility] for urodynamics contact information provided * I have prescribed Flomax please take as indicated * Hold eliquis until seen by urology 2). Altered mental status * Please continue Seroquel as indicated * Also prescribed Trazodone at night to help with awake/sleep cycle 3). Prostatitis * I have prescribed oral cipro to be taken through 06/01/2025 How can you care for yourself at home? ? Keep track of any new symptoms or changes in your symptoms. ? Rest until you feel better. ? Be safe with medicines. Take your medicines exactly as prescribed. Call your doctor if you think you are having a problem with your medicine. ? Do not drive after taking a prescription pain medicine. ? Ensure to follow-up with primary care physician as indicated and provide updated medication list provided to you at discharge. When should you call for help? Call 911 anytime you think you may need emergency care. For example, call if: ? You passed out (lost consciousness). Call your doctor now or seek immediate medical care if: ? You have new symptoms like fever, difficulty breathing, Chest pain, vomiting, or rash. ? You have new or different pain. ? You are confused and are having trouble thinking clearly. ? Your symptoms are getting worse. Watch closely for changes in your health, and be sure to contact your doctor if: ? You do not get better as expected. Patient Instructions: Apixaban (By mouth), Prostatitis (DC), Urinary Retention in Men (GEN), Meyer Catheter Placement and Care (DC) Patient Language: Estonian Stand Alone Forms: General Discharge Information Follow-up/Referrals: Patricia Rodriguez APRN [Advanced Practice Nurse, Urology] - 1 Week Referral Note: Void trial Repeat urinalysis Problems: Acute UTI; Gross hematuria; Urinary retention Discharge Medications: New quetiapine [Seroquel] 25 mg Tablet 25 mg PO Q12HR PRN (Reason: agitation) Qty: 30 0RF trazodone 50 mg Tablet 50 mg PO HS Qty: 30 0RF ciprofloxacin HCl 500 mg Tablet 500 mg PO Q12HR Qty: 11 0RF tamsulosin 0.4 mg Capsule 0.4 mg PO HS Qty: 30 0RF ferrous gluconate 324 mg (38 mg iron) Tablet 324 mg PO DAILY@1200 Qty: 30 0RF quetiapine [Seroquel XR] 50 mg Tablet Extended Release 24 Hr 100 mg PO EVENING Qty: 30 0RF Continued metoprolol succinate 50 mg tablet extended release 24 hr 50 mg PO DAILY Qty: 90 2RF donepezil [Aricept] 10 mg tablet 10 mg PO DAILY Qty: 90 2RF bupropion HCl [Wellbutrin XL] 150 mg tablet extended release 24 hr 150 mg PO DAILY Qty: 90 2RF atorvastatin 40 mg Tablet 40 mg PO DAILY 30 Days Qty: 30 1RF acetaminophen [Tylenol Extra Strength] 500 mg tablet 1,000 mg PO Q6H PRN (Reason: pain) Qty: 50 0RF lisinopril 20 mg Tablet 40 mg PO QAM Qty: 30 0RF lacosamide 100 mg tablet 200 mg PO Q12H Rx Instructions: Take for week one 7 days total Held Eliquis 5 mg Tablet 5 mg PO Q12HR Qty: 60 0RF Hold Instructions: Resume on 06/08/25. Hold until resumed and seen by urology Discontinued clopidogrel 75 mg Tablet 75 mg PO QAM 30 Days Qty: 30 1RF aspirin 81 mg Tablet,Delayed Release (Dr/Ec) 81 mg PO QAM 30 Days Qty: 30 1RF Date of admission: 05/10/25 13:38 Primary Care Provider: Zia Francisco Admitting Provider: Kofi Carmona Attending physician on admission: Teri Mancuso Condition: Improved Quality VTE Prophylaxis VTE prophylaxis: pharmacologic ordered Hospitalist MIPS Heart Failure (Exclusion) Patient has history of Heart Transplant or Left Ventricular Assistive Device?: No IF YES, STOP HERE Heart Failure (Qualifier) Patient has current or prior documentation of LVEF less than or equal to 40%, or mod/servere depressed LVSF?: No IF NO, STOP HERE
--- NOTE | 2025-05-27 14:47 | P.DS_ITS ---
DS: Admitting Diagnosis Discharge Date 05/27/25 Admitting Diagnosis Altered mental status, UTI, Prostatitis DS: Summary Hospital Course Reason for hospitalization: Patient presented to the hospital with altered mental status. During hospitalization CT head revealed no acute abnormalities. Patient completed a course of IV cipro and was transitioned to PO for a course that continues thro [facility] 06/01/2025 per urology recs. Patient failed several post voiding trials and will discharge to SNF with meyer catheter. Plan to followup with urology outpatient. Will hold eliquis until follow up urology visit. Status at Discharge Functional status at discharge: uses cane/walker Overall status at discharge: patient is progressing back to baseline Time Spent with Patient Time attestation: Total time spent providing and/or coordinating discharge services: Time spent: Greater than 30 minutes Exam Const: General: comfortable and no acute distress HENMT: Ears: TM's normal bilaterally Face/Nose/Sinus: Normal nares present Mouth: Yes moist mucous membranes Eyes: General: appearance normal, both eyes and all related structures Sclera: sclerae normal Pupils: Equal, round and reactive pupils present Neck: Neck: supple and no JVD Resp: Effort & Inspection: normal respiratory effort Auscultation: clear to auscultation bilaterally Cardio: Rate: regular rate Rhythm: abnormal rhythm GI: GI Palp: Yes Soft to palpation Auscultation: normal bowel sounds : Male General Exam: Yes normal external exam Urinary Catheter: Urinary Catheter: patent and draining and urine red (Hematuria without clots) Skin: General skin exam: normal color Wounds: no wounds Neuro: General: patient oriented x3 and moves all extremities Motor exam (neuro): Tremors during motor activity present Extrem: General: normal to inspection Psych: Appearance: well kempt Speech and movement: Normal speech and movement present Affect: Labile affect present Attitude: cooperative Thought content: Yes Normal thought content present Insight: Limited insight present (Psych) Judgement: Limited judgement present (Psych) DS: Data Data Completed and Pending Labs on day of discharge: Labs from last 24 hours 05/27/25 05/26/25 05/19/25 04:44 16:23 14:09 WBC 6.7 RBC 3.03 L Hgb 9.4 L Hct 29.9 L MCV 98.7 MCH 31.0 MCHC 31.4 L RDW 16.5 H Plt Count 487 H MPV 8.7 Sodium 134 L Potassium 3.7 Chloride 106 Carbon Dioxide 22 Anion Gap 6 BUN 11 Creatinine 0.83 Estim Creat Clear Calc 67 Estimated GFR > 60 Glucose 104 Calcium 8.6 Jaz Transferrin Receptr Pending Total Bilirubin 0.6 AST 34 ALT 16 Alkaline Phosphatase 107 Total Protein 6.2 L Albumin 3.4 L Discharge Plan Discharge Attending physician on discharge: Romy James Consulting providers: Ev Yang; Augusto Guillermo; Steve Dubose; Jean Coppola; Aurea Waldron; Chase Choudhury; Teri Mancuso; Aaron Rodriguez Discharging Clinician: Ev Yang Anticipated Discharge Date/Time: 05/27/25 11:59 Patient Disposition: SNF Activity: as tolerated Diet: regular Discharge Instructions: 1). Urinary retention/hematuria * Continue with meyer catheter * Catheter care twice a day * Flush catheter as needed * Will need to schedule follow-up appointment with [facility] for urodynamics contact information provided * I have prescribed Flomax please take as indicated * Hold eliquis until seen by urology 2). Altered mental status * Please continue Seroquel as indicated * Also prescribed Trazodone at night to help with awake/sleep cycle 3). Prostatitis * I have prescribed oral cipro to be taken through 06/01/2025 How can you care for yourself at home? ? Keep track of any new symptoms or changes in your symptoms. ? Rest until you feel better. ? Be safe with medicines. Take your medicines exactly as prescribed. Call your doctor if you think you are having a problem with your medicine. ? Do not drive after taking a prescription pain medicine. ? Ensure to follow-up with primary care physician as indicated and provide updated medication list provided to you at discharge. When should you call for help? Call 911 anytime you think you may need emergency care. For example, call if: ? You passed out (lost consciousness). Call your doctor now or seek immediate medical care if: ? You have new symptoms like fever, difficulty breathing, Chest pain, vomiting, or rash. ? You have new or different pain. ? You are confused and are having trouble thinking clearly. ? Your symptoms are getting worse. Watch closely for changes in your health, and be sure to contact your doctor if: ? You do not get better as expected. Patient Instructions: Apixaban (By mouth), Prostatitis (DC), Urinary Retention in Men (GEN), Meyer Catheter Placement and Care (DC) Patient Language: Nigerian Stand Alone Forms: General Discharge Information Follow-up/Referrals: Patricia Rodriguez APRN [Advanced Practice Nurse, Urology] - 1 Week Referral Note: Void trial Repeat urinalysis Problems: Acute UTI; Gross hematuria; Urinary retention Discharge Medications: New quetiapine [Seroquel] 25 mg Tablet 25 mg PO Q12HR PRN (Reason: agitation) Qty: 30 0RF trazodone 50 mg Tablet 50 mg PO HS Qty: 30 0RF ciprofloxacin HCl 500 mg Tablet 500 mg PO Q12HR Qty: 11 0RF tamsulosin 0.4 mg Capsule 0.4 mg PO HS Qty: 30 0RF ferrous gluconate 324 mg (38 mg iron) Tablet 324 mg PO DAILY@1200 Qty: 30 0RF quetiapine [Seroquel XR] 50 mg Tablet Extended Release 24 Hr 100 mg PO EVENING Qty: 30 0RF Continued metoprolol succinate 50 mg tablet extended release 24 hr 50 mg PO DAILY Qty: 90 2RF donepezil [Aricept] 10 mg tablet 10 mg PO DAILY Qty: 90 2RF bupropion HCl [Wellbutrin XL] 150 mg tablet extended release 24 hr 150 mg PO DAILY Qty: 90 2RF atorvastatin 40 mg Tablet 40 mg PO DAILY 30 Days Qty: 30 1RF acetaminophen [Tylenol Extra Strength] 500 mg tablet 1,000 mg PO Q6H PRN (Reason: pain) Qty: 50 0RF lisinopril 20 mg Tablet 40 mg PO QAM Qty: 30 0RF lacosamide 100 mg tablet 200 mg PO Q12H Rx Instructions: Take for week one 7 days total Held Eliquis 5 mg Tablet 5 mg PO Q12HR Qty: 60 0RF Hold Instructions: Resume on 06/08/25. Hold until resumed and seen by urology Discontinued clopidogrel 75 mg Tablet 75 mg PO QAM 30 Days Qty: 30 1RF aspirin 81 mg Tablet,Delayed Release (Dr/Ec) 81 mg PO QAM 30 Days Qty: 30 1RF Date of admission: 05/10/25 13:38 Primary Care Provider: Zia Francisco Admitting Provider: Kofi Carmona Attending physician on admission: Kofi Carmona Condition: Improved Hospitalist MIPS Heart Failure (Exclusion) Patient has history of Heart Transplant or Left Ventricular Assistive Device?: No IF YES, STOP HERE Heart Failure (Qualifier) Patient has current or prior documentation of LVEF less than or equal to 40%, or mod/servere depressed LVSF?: No IF NO, STOP HERE
== END 2025-05-27 14:00 | DRG 872 ==
LOC: ANHED 10:16 → ANH3MEDSUR 14:36 → ANHIMU 05-11 13:52 → ANH2MED 05-13 18:21 → ANHIMU 05-19 12:16 → ANH2MED 05-20 17:09
PROVIDERS: Internal Medicine; Nurse Practitioner; Physician Assistant; Student in an Organized Health Care Education/Training Program; Urology; Admitting Provider General Practice; Emergency Provider Emergency Medicine; PCP Emergency Medicine; Visit Provider Nurse Practitioner Family
PROC: 0TCB8ZZ Extirpation of Matter from Bladder, Via Natural or Artificial Opening Endoscopic (ICD-10-PCS; CPT 52001; principal; 2025-05-11 12:30)
DX: A41.9 Sepsis, unspecified organism (principal); I48.20 Chronic atrial fibrillation, unspecified; N41.0 Acute prostatitis; S37.39XA Other injury of urethra, initial encounter; G93.40 Encephalopathy, unspecified; I10 Essential (primary) hypertension; D75.838 Other thrombocytosis; D64.9 Anemia, unspecified; E78.5 Hyperlipidemia, unspecified; N40.1 Benign prostatic hyperplasia with lower urinary tract symptoms; R33.8 Other retention of urine; R31.0 Gross hematuria; R45.1 Restlessness and agitation; R40.4 Transient alteration of awareness; G40.909 Epilepsy, unspecified, not intractable, without status epilepticus; F01.50 Vascular dementia, unspecified severity, without behavioral disturbance, psychotic disturbance, mood disturbance, and anxiety; F12.90 Cannabis use, unspecified, uncomplicated; Z96.653 Presence of artificial knee joint, bilateral; I69.398 Other sequelae of cerebral infarction; Z87.891 Personal history of nicotine dependence; Z79.02 Long term (current) use of antithrombotics/antiplatelets; Z79.01 Long term (current) use of anticoagulants; Z79.82 Long term (current) use of aspirin
CPT/HCPCS: 36415; 36600; 70450; 71045; 71260; 74177; 80048; 80053; 81001; 82607; 82728; 82746; 82805; 82948; 83540; 83550; 83605; 84238; 84484; 85018; 85025; 85027; 85610; 85730; 87040; 92523; 92610; 93005; 95816; 96365; 96366; 96375; 97110; 97116; 97162; 97166; 97530; 97535; 99285; A9270; C1769; G0378; J0166; J0360; J0616; J0696; J0744; J1100; J1200; J1630; J1756; J2003; J2270; J2359; J2371; J2405; J2704; J3360; J7030; J7050; J7120; Q9967

== ENCOUNTER 2025-07-18 15:33 | Emergency (ER) | payer MEDICARE, SELFPAY ==
--- OUTSIDE RECORDS SUMMARY | 2010-06-27 18:00 | XMS_ITS | Continuity of Care Document ---
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, [address] [place] [address] [address], [place], [place], [address], [place] tel:[phone] [facility] No Information 201 0 Eloisa Isaac. [address] [facility] [address], [place], [address], [place]. tel:[phone] Referring Provider: Derick Bush [facility] [address], [place], [address]. tel:[phone] [facility], [address] [place] [address] [address], [place], [place], [address], [place] tel:[phone] [facility] No Information Oct-0 5-201 0 Eloisa Isaac. [address] [facility] , [address], [place], [facility], . tel:[phone] Referring Provider: Poncho Wren, [address] [facility] [address], [place], [facility]. tel:[phone] Office/outpat ient Visit, [facility], [address] [place] [address] [address], [place], [place], [address], [place] tel:[phone] [facility] No Information Aug-2 3-201 0 Eloisa Isaac. [address] [facility] [address], [address], [place], [facility], [place]. tel:[phone] Office/outpat ient Visit, [facility], [address] [place] [address] [address], [place], [place], [address], [place] tel:[phone] [facility] No Information January-2 0-200 9 Eloisa Isaac. [address] [place], [place] [address]ate Wilber Samano, [address], [place], [facility], [place]. tel:[phone] Office/outpat ient Visit, [facility], [address] [place] [address] [address], [place], [place], [address], [place] tel:[phone] [facility] No Information Mar-0 7-200 8 Eloisa Isaac. [address] [facility] [address], [address], [place], [facility], [place]. tel:[phone] [facility], [address] [place] [address] [address], [place], [place], [address], [place] tel:[phone] [facility] No Information Charles-2 3-200 8 Eloisa Isaac. [address] [facility] [address], [address], [place], [facility], [place]. tel:[phone] [facility], [address] [place] [address] [address], [place], [place], [address], tel:[phone] [facility] No Information 8 Eloisa Isaac. [facility] , [address], [place], [facility], . tel:[phone] [facility], [address] [place] [address] [address], [place], [place], [address], tel:[phone] [facility] No Information 8 Eloisa Isaac. [address] [place], [place] [address]ate Wilber Samano, [address], [place], [facility], . tel:[phone] Office/outpat ient Visit, [facility], [address] [place] [address] [address], [place], [place], [address], tel:[phone] [facility] No Information 200 7 Eloisa Isaac. [address] [place], [place] [address]ate Wilber Samano, [address], [place], [facility], . tel:[phone] Referring Provider: Poncho Wren, [address] [place], [place] [address]ate [address], [place], [facility]. tel:[phone] [facility], [address] [place] [address] [address], [place], [place], [address], tel:[phone] [facility] No Information 0 200 7 Cortez OD Brad. [address] [place], [place] [address]ate Wilber [address]ano, [address], [place], [facility], . tel:[phone] Family History Family Member Type Diagnosis Age At Onset No Information Payers Payer name Insurance type Covered alliance party ID Authoriza tion(s) [place] [id number] Social History Type Description Quantity Date Captured [...]
--- NOTE | ~2025-07-18 | XR_ITS ---
EXAMINATION: XR chest 1V portable 07/18/2025 16:15 INDICATION: Cough and shortness of breath PROCEDURE: AP portable chest COMPARISON: Comparison to multiple prior studies sequentially, with oldest reviewed study dated 12/28/2024. FINDINGS: The lungs are clear. The cardiomediastinal silhouette is within normal limits. There are no pleural effusions. There is no pneumothorax suspected. IMPRESSION: 1: NO ACUTE CARDIOPULMONARY DISEASE. Reviewed, dictated and finalized at location O. STRIAL SAFETY ENGINEER
[2025-07-18 15:40] VITALS: BP 157/83; PULSE 57; RESP 17; TEMP 36.7; O2SAT 96
[2025-07-18 15:48] VITALS: O2SAT 96
--- OUTSIDE RECORDS SUMMARY | 2025-07-18 15:52 | XMS_ITS | Encounter Summary ---
Author Organization [facility] Address 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
--- OUTSIDE RECORDS SUMMARY | 2025-07-18 15:52 | XMS_ITS | Encounter Summary ---
Author Organization [facility] Address 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 Gender Identity Not on file Sexual Orientation [...] CDT) HEMATOCRIT 28.8(L) 40.0 - 48.0 % [facility] HEMOGLOBIN 9.3(L) 13.6 - 16.5 g/dL [facility] Blood specimen (specimen) 01/10/2008 5:54 AM CDT 01/10/2008 7:00 AM CDT us Govind Sotelo MD HEMATOLOGY ORDERABLES Final Result [facility] [address] [place] [address] * HEMOGLOBIN AND HEMATOCRIT (12/25/2007 10:57 AM CDT) HEMATOCRIT 46.3 40.0 - 48.0 % [facility] HEMOGLOBIN 15.6 13.6 - 16.5 g/dL [facility] Blood specimen (specimen) 12/25/2007 10:57 AM CDT 12/25/2007 11:58 AM CDT Govind Sotelo MD HEMATOLOGY ORDERABLES Final Result [facility] [address] [place] [address] * (ABNORMAL) BASIC METABOLIC PANEL (12/25/2007 10:57 AM CDT) Pathologist [facility] CHLORIDE 100 96 - 108 mmol/L [facility] GLUCOSE 124(H) 65 - 99 mg/dL [facility] SODIUM 140 135 - 145 mmol/L [facility] CALCIUM 9.6 8.4 - 10.2 mg/dL [facility] CO2 28 22 - 30 mmol/L [facility] CREATININE 0.86 0.67 - 1.17 mg/dL [facility] POTASSIUM 3.9 3.5 - 4.9 mmol/L [facility] BUN 10 6 - 20 mg/dL [facility] GFR, >60 >=60 mL/min/1. 7 sq meter [facility] GFR >60 >=60 mL/min/1. 7 sq meter [facility] Comment: Estimated GFR rate interpretative information for both Americans and non- Americans is available on the [facility] Intranet at: [email or web address] Select: Lab Policies and Procedures Select: Reference Ranges - GFR Blood specimen (specimen) 12/25/2007 10:57 AM CDT 12/25/2007 11:58 AM CDT us Govind Sotelo MD CHEMISTRY ORDERABLES Edited [facility] [address] [place] [address] documented in this encounter Visit Diagnoses Diagnosis Osteoarthrosis, unspecified whether generalized or localized, lower leg documented in this encounter
--- OUTSIDE RECORDS SUMMARY | 2025-07-18 15:52 | XMS_ITS | Clinical Summary ---
Author Organization [facility] Address [address] [place] [address] Care Team Providers Care Fabric Worker Name Role Phone Giancarlo Delacruz MD Primary Care Provider [phone] Allergies Active Allergy Reactions Criticality Noted Date Comments Penicillins Anaphylaxis,Other (see comment) High 12/2024 Medications donepezil (ARICEPT) 10 MG Tab Take 1 tablet (10 mg total) by mouth daily. 05/03/2025 Active buPROPion XL (WELLBUTRIN XL) 150 MG 24 hr tablet Take 1 tablet (150 mg total) by mouth daily. 05/03/2025 Active clopidogrel (PLAVIX) 75 MG tablet Take 1 tablet (75 mg total) by mouth every morning. 04/25/2025 Active ELIQUIS 5 MG tablet Take 1 tablet (5 mg total) by mouth every 12 (twelve) hours. 04/29/2025 Active QUEtiapine (SEROQUEL) 25 MG tablet 05/27/2025 Active lacosamide (VIMPAT) 100 MG Tab TAKE 1 TABLET BY MOUTH EVERY 12 HOURS FOR 7 DAYS TOTAL 04/29/2025 Active Active Problems Problem Noted Date Diagnosed Date Agitation 06/14/2025 AMS (altered mental status) 06/14/2025 Bradycardia 06/14/2025 Cerebrovascular accident (CVA) 06/14/2025 Family hx of colon cancer 06/14/2025 History of colon polyps 06/14/2025 History of CVA (cerebrovascular accident) 2024 Hyperglycemia 06/14/2025 Hyperlipidemia 06/14/2025 Marijuana use 06/14/2025 Sciatica 06/14/2025 Seizure disorder 06/14/2025 Unresponsive episode 06/14/2025 Vitamin D3 deficiency 06/14/2025 Sequelae of cerebral infarction Visual seizure Atrial fibrillation Essential hypertension Resolved Problems Problem Noted Date Diagnosed Date Resolved Date Screening PSA (prostate specific antigen) 06/14/2025 06/20/2025 Encounters Date Type Department Care Team Description 06/14/2025 2:00 PM CDT [facility] Family & Internal Medicine [facility] [address] [place] [address] Giancarlo Delacruz MD [facility] Discharge (D/c 06/15 /[facility] ) 06/08/2025 9:15 AM CDT - 06/08/2025 11:59 PM CDT Hospital Encounter [facility] [address] [place], [place] [id number] Crystal Faith WAX BLENDER Discharge Disposition: Home or Self Care (Routine Discharge) 06/08/2025 Orders Only [facility] [address] [place], [place] [phone] Crystal Faith WAX BLENDER 05/31/2025 5:20 PM CDT [facility] Family & Internal Medicine [facility] [id number] [place] [phone] Giancarlo Delacruz MD [facility] ([facility]) 05/29/2025 Scan HEALTH INFO SRVCS Scanned, Doc Med Group from Last 3 Months Social History Tobacco Use Types Packs/Day Years Used Date Smoking Tobacco: Unknown Tobacco Cessation:Counseling Given: No Sex and Gender Information Value Date Recorded Sex Assigned at Not on file Legal Sex Male 7:52 AM CDT Gender Identity Not on file Sexual Orientation Not on file Last Filed Vital Signs Vital Sign Reading Time Taken Comments Blood Pressure 118/88 06/14/2025 1:05 PM CDT Pulse 72 06/14/2025 1:05 PM CDT Temperature 36.7 C (98 F) 06/14/2025 1:05 PM CDT Respiratory Rate 18 06/14/2025 1:05 PM CDT Oxygen Saturation 98% 06/14/2025 1:05 PM CDT Inhaled Oxygen Concentration - - Weight 66.2 kg (146 lb) 06/14/2025 1:05 PM CDT Height - - Body Mass Index - - Plan of Treatment Health Maintenance Due Date Last Done Comments Colorectal Cancer Screening Colonoscopy (10 Years) 1954 Hepatitis C 1972 DTaP, Tdap and Td Vaccines (1 - Tdap) 1973 Pneumococcal Vaccine: 50+ Years (1 of 1 - PCV) 2004 Zoster Vaccines (1 of 2) 2004 Annual Medicare Wellness Visit 2019 PHQ-2 (Physician [place]) 09/15/2024 COVID-19 Vaccine ( - season) 2025 12/03/2021, 06/09/2021, 12/06/2020, Additional history exists Influenza Adult (#1) 2025 RSV Immunization or 60+ Years (1 - 1-dose 75+ series) 2029 Hepatitis A Vaccines Aged Out No long er eligible based on patient's age to complete this topic Meningococcal B Vaccine Aged Out No l onger eligible based on patient's age to complete this topic Meningococcal Vaccine Aged Out No jacobo trevor eligible based on patient's age to complete this topic RSV Immunizations Under 20 Months Aged Out No longer eligible based on patient's age to complete this topic Procedures Procedure Name Priority Date/Time Associated Diagnosis Comments LACOSAMIDE, LC/MS/MS Routine 06/08/2025 7:53 AM CDT Other seizures ([facility]) from Last 3 Months Results * LACOSAMIDE, LC/MS/MS (06/08/2025 7:53 AM CDT) LACOSAMIDE 8.5 mcg/mL 06/14/2025 11:37 PM CDT [facility] Comment: (Note) Expected concentrations of Lacosamide in patients receiving recommended daily dosages: Up to 15.0 mcg/mL.Toxic range not established. This test was developed and its analytical performance characteristics have been determined by [employer]. It has not been cleared or approved by the FDA. This assay has been validated pursuant to the CLIA regulations and is used for clinical purposes. [facility] med fusion [address] [address],[address] [facility] [address] Ana Garcia MD, PhD Test performed by [facility] [address] [facility] [address] [place] [address] Manager Valuation: Ana Garcia MD, PhD Test Reported by [facility], [employer] [facility], [address] [place], [place] Christiano Greco M.D., Ph.D., Director of Laboratories , [facility] [id number] 06/08/2025 7:53 AM CDT Crystal Faith W[employer] BL[employer] LABORATORY Final Resu lt [facility] [id number] [place] [address], from Last 3 Months Insurance [employer] MEDICARE Care Teams Fabric Worker Relationship Specialty Start [place] [address] [place] [address] PCP - General FAMILY PRACTICE 05/31/25
--- OUTSIDE RECORDS SUMMARY | 2025-07-18 15:52 | XMS_ITS | Encounter Summary ---
Author Organization [facility] Address [address] [place] [address] Care Team Providers Care Metal Cnc Operator Name Role Phone Unavailable Primary Care [...] on file Legal Sex Male 5:12 AM TAXI DRIVER Gender Identity Not on file Sexual Orientation Not on file documented as of this encounter Plan of Treatment Not on file documented as of this encounter Procedures Procedure Name Priority Date/Time Associated Diagnosis Comments URINALYSIS WITH REFLEX CULTURE Routine 10/11/2007 8:25 AM TAXI DRIVER URINALYSIS W/REFLEX MICROSCOPIC Routine 10/11/2007 8:25 AM TAXI DRIVER HEMOGLOBIN AND HEMATOCRIT Routine 10/11/2007 7:00 AM TAXI DRIVER BASIC METABOLIC PANEL Routine 10/11/2007 7:00 AM TAXI DRIVER HEMOGLOBIN AND HEMATOCRIT Routine 10/10/2007 5:35 AM TAXI DRIVER HEMOGLOBIN AND HEMATOCRIT Routine 09/30/2007 9:16 AM TAXI DRIVER documented in this encounter Results * (ABNORMAL) URINALYSIS (10/11/2007 8:25 AM TAXI DRIVER) COLOR UA Pale Yellow INTERFAC E SYSTEM [...] 3 /HPF INTERFACE SYSTEM 10/11/2007 8:25 AM TAXI DRIVER us Mia Espinal MD URINE ORDERABLES Edited Performing Organization Address [facility] Phone Number INTERFACE SYSTEM Refer to clinic/hospital department * URINALYSIS WITH REFLEX CULTURE (10/11/2007 8:25 AM TAXI DRIVER) URINE CULTURE ORDER Culture ordered INTERFACE SYSTEM Comment: Criteria for a reflex culture include one or more of the following: Abn ormal nitrite, leukocyte esterase, WBCs or RBCs. Lack of qualifying criteria does not exclude the possiblity of a urinary tract infection. Dilute urine, drug interference, etc. may decrease the sensitivity of the criteria analytes. 10/11/2007 8:25 AM TAXI DRIVER us Mia Espinal MD URINE ORDERABLES Edited Performing Organization Address [facility] Phone Number INTERFACE SYSTEM Refer to clinic/hospital department * (ABNORMAL) BASIC METABOLIC PANEL (10/11/2007 7:00 AM TAXI DRIVER) GLUCOSE 120(H) 65 - 99 mg/dL INTERFACE [...] and non- Americans is available on the [facility] Intranet at: [email or web address] Select: Lab Policies and Procedures Select: Reference Ranges - GFR 10/11/2007 7:00 AM TAXI DRIVER us Mia Espinal MD CHEMISTRY ORDERABLES Edited Performing Organization Address [facility] Phone Number INTERFACE SYSTEM Refer to clinic/hospital department * (ABNORMAL) HEMOGLOBIN AND HEMATOCRIT (10/11/2007 7:00 AM TAXI DRIVER) HEMOGLOBIN 8.9(L) 13.6 - 16.5 g/dL INTERFACE SYSTEM HEMATOCRIT 26.4(L) 40.0 - 48.0 % INTERFACE SYSTEM 10/11/2007 7:00 AM TAXI DRIVER Result Andria Sotelo MD HEMATOLOGY ORDERABLES Edited Performing Organization Address [facility] Phone Number INTERFACE SYSTEM Refer to clinic/hospital department * (ABNORMAL) HEMOGLOBIN AND HEMATOCRIT (10/10/2007 5:35 AM TAXI DRIVER) HEMOGLOBIN 9.0(L) 13.6 - 16.5 g/dL INTERFACE SYSTEM HEMATOCRIT 27.3(L) 40.0 - 48.0 % INTERFACE SYSTEM 10/10/2007 5:35 AM TAXI DRIVER Result Andria Sotelo MD HEMATOLOGY ORDERABLES Edited Performing Organization Address [facility] de Phone Number INTERFACE SYSTEM Refer to clinic/hospital department * HEMOGLOBIN AND HEMATOCRIT (09/30/2007 9:16 AM TAXI DRIVER) HEMOGLOBIN 14.3 13.6 - 16.5 g/dL INTERFACE SYSTEM HEMATOCRIT 41.4 40.0 - 48.0 % INTERFACE SYSTEM 09/30/2007 9:16 AM TAXI DRIVER Result Andria Sotelo MD HEMATOLOGY ORDERABLES Edited Performing Organization Address [facility]/ZIP Co de Phone Number INTERFACE SYSTEM Refer to clinic/hospital department documented in this encounter Visit Diagnoses Diagnosis Osteoarthrosis, unspecified whether generalized or localized, lower leg documented in this encounter
--- OUTSIDE RECORDS SUMMARY | 2025-07-18 15:52 | XMS_ITS | Clinical Summary ---
Author Organization [facility] Address [address] [place] [phone] Phone Care Team Providers Care Asphalt Heater Operator Name Role Phone Provider, None Primary Care Provider Unavailabl e Allergies Active Allergy Reactions Criticality Noted Date Comments Penicillins Other (see Comments) 04/18/2025 Encounters Date Type Department Care Team Description 04/18/2025 5:25 PM CDT - 04/18/2025 9:53 PM CDT [facility] [address] [place] [phone] Leo Navarrete DO Altered mental status, [...] 2004 Zoster Immunization (1 of 2) 2004 Medicare Initial AWV [id number] 09/15/2024 Influenza Immunization (#1) 2025 SARS-COV-2 Immunization (1 - season) 2025 Respiratory Syncytial Virus (RSV) Immunization (Adult) [...] 1.003 - 1.030 04/18/2025 7:41 PM CDT [facility] URINE PH 5.5 5.0 - 9.0 04/18/2025 7:41 PM CDT [facility] WBC ESTERASE Negative Negative 04/18/2025 7:41 PM CDT [facility] NITRITE Negative Negative 04/18/2025 7:41 PM CDT [facility] PROTEIN, RANDOM URINE Trace(A) Negative 04/18/2025 7:41 PM CDT [facility] URINE GLUCOSE, QUAL Negative Negative 04/18/2025 7:41 PM CDT [facility] URINE KETONES Trace(A) Negative 04/18/2025 7:41 PM CDT [facility] UROBILINOGEN 0.2 0.2 , 1.0 , Normal mg/dL 04/18/2025 7:41 PM CDT [facility] URINE BLOOD 2+(A) Negative emerson/ul 04/18/2025 7:41 PM CDT [facility] URINALYSIS COLOR Dark Yellow 04/18/2025 7:41 PM CDT [facility] URINALYSIS CLARITY Clear 04/18/2025 7:41 PM CDT [facility] WBC (Urine) 21-50(A) Negative, 0-5 /hpf 04/18/2025 7:41 PM CDT [facility] URINE RBC'S 3-5(A) Negative, 0-2 /hpf 04/18/2025 7:41 PM CDT [facility] EPITHELIAL CELLS Occasional /lpf 04/18/2025 7:41 PM CDT [facility] BACTERIA, URINE Few(A) Negative /hpf 04/18/2025 7:41 PM CDT [facility] URINE MUCOUS Few 04/18/2025 7:41 PM CDT [facility] Urine URINE SPECIMEN / Unknown Non-Phlebotomy Collection / Unknown 04/18/2025 7:03 PM CDT 04/18/2025 7:09 PM CDT Leo Navarrete DO URINE ORDERABLES Final R esult [facility] [address] [place] [phone], * (ABNORMAL) Urine Drug Screen (04/18/2025 7:03 PM CDT) UR AMPHETAMINE NON DETECTED NON DETECTED 04/18/2025 7:23 PM CDT [facility] Comment: FOR MEDICAL USE ONLY. CUTOFF CONCENTRATION FOR DETECTED RESULT: AMPHETAMINE: 500 NG/ML UR BARBITURATE NON DETECTED NON DETECTED 04/18/2025 7:23 PM CDT [facility] Comment: FOR MEDICAL USE ONLY. CUTOFF CONCENTRATION FOR DETECTED RESULT: BARBITUATES: 200 NG/ML UR BENZODIAZEPINES NON DETECTED NON DETECTED 04/18/2025 7:23 PM CDT [facility] Comment: FOR MEDICAL USE ONLY. CUTOFF CONCENTRATION FOR DETECTED RESULT: BENZODIAZAPINE: 200 NG/ML UR COCAINE METABOLITE NON DETECTED NON DETECTED 04/18/2025 7:23 PM CDT [facility] Comment: FOR MEDICAL USE ONLY. CUTOFF CONCENTRATION FOR DETECTED RESULT: COCAINE: 150 NG/ML UR OPIATES NON DETECTED NON DETECTED 04/18/2025 7:23 PM CDT [facility] Comment: FOR MEDICAL USE ONLY. CUTOFF CONCENTRATION FOR DETECTED RESULT: OPIATES: 300 NG/ML UR PHENCYCLIDINE NON DETECTED NON DETECTED 04/18/2025 7:23 PM CDT [facility] Comment: FOR MEDICAL USE ONLY. CUTOFF CONCENTRATION FOR DETECTED RESULT: PCP: 25 NG/ML UR CANNABINOID DETECTED(A) NON DETECTED 04/18/2025 7:23 PM CDT [facility] Comment: FOR MEDICAL USE ONLY. CUTOFF CONCENTRATION FOR DETECTED RESULT: THC (MARIJUANA): 50 NG/ML Urine Non-Phlebotomy Collection / Unknown 04/18/2025 7:03 PM CDT 04/18/2025 7:09 PM CDT us Leo Navarrete DO URINE ORDERABLES Final R esult [facility] [address] [place] [phone], * XR CHEST SINGLE VIEW PORTABLE (04/18/2025 6:34 PM CDT) Anatomical Region Laterality Modality Chest N/A Digital Radiogra phy 04/18/2025 6:34 PM CDT Impressions 04/19/2025 8:32 AM CDT IMPRESSION: No radiographic evidence of acute cardiopulmonary disease. Narrative 04/19/2025 8:32 AM CDT DICTATING PHYSICIAN: Home Vee M.D. - [facility] EXAMINATION: Chest x-ray, 1 [...] DICTATING PHYSICIAN: Home Vee M.D. - [facility] EXAMINATION: Chest x-ray, 1 view. [...] of acute cardiopulmonary disease. Leo Navarrete DO IMG DIAGNOSTIC ORDERABLE S Final Result * CT HEAD OR BRAIN WO CONTRAST (04/18/2025 6:33 PM CDT) Anatomical Region Laterality Modality Head N/A Computed Tomogra phy 04/18/2025 6:20 PM CDT Impressions 04/19/2025 8:55 AM CDT IMPRESSION:. 1. No acute intracranial abnormality, posttraumatic or otherwise, by noncontrast CT criteria at this time. Preliminary report and any related to communication were provided by of [facility]'s after-hours service, as documented in [...] A Negative Negative 04/18/2025 7:25 PM CDT [facility] FLU B Negative Negative 04/18/2025 7:25 PM CDT [facility] RESP SYNC VIRUS Negative Negative, Invalid 04/18/2025 7:25 PM CDT [facility] SARSCOV2 NOT DETECTED (Reference Range for this test is Not Detected) 04/18/2025 7:25 PM CDT [facility] Comment:This test was perfor med by a Reverse Inorganic Chemist PCR Method. Nasopharyngeal NASOPHARYNGEAL SWAB / Unknown Non-Phlebotomy Collection / Unknown 04/18/2025 6:15 PM CDT 04/18/2025 6:21 PM CDT Leo Navarrete DO MICROBIOLOGY - GENERAL O RDERABLES Final Result Performing Organization Address City/[facility]/ZIP Co de Phone Number [facility] [address] [place], [place] [address], [place] [phone] * Julio Top Tube (04/18/2025 6:15 PM CDT) Blood Venous Catheter (IV) / Unknown 04/18/2025 6:15 PM CDT 04/18/2025 6:19 PM CDT Leo Navarrete DO CHEMISTRY ORDERABLES Fin al Result Performing Organization Address City/[facility]/ZIP Co de Phone Number [facility] [address] [place], [place] [address], [place] [phone] * Gold Top Tube (04/18/2025 6:15 PM CDT) Blood Venous Catheter (IV) / Unknown 04/18/2025 6:15 PM CDT 04/18/2025 6:23 PM CDT us Leo Navarrete DO CHEMISTRY ORDERABLES Fin al Result Performing Organization Address [facility]/ZIP Co de Phone Number [facility] [address] [place] [phone], [place] [phone] * Blue Top Tube (04/18/2025 6:15 PM CDT) Blood Venous Catheter (IV) / Unknown 04/18/2025 6:15 PM CDT 04/18/2025 6:23 PM CDT us Leo Navarrete DO HEMATOLOGY ORDERABLES Fi nal Result Performing Organization Address [facility] de Phone Number [facility] [address] [place] [phone], [place] [phone] * (ABNORMAL) CBC with Auto Differential (04/18/2025 6:15 PM CDT) WBC 8.90 4.00 - 12.00 10(3)/mcL 04/18/2025 6:35 PM CDT [facility] RBC 4.96 4.40 - 5.80 10(6)/mcL 04/18/2025 6:35 PM CDT [facility] HEMOGLOBIN (HGB) 15.7 13.0 - 16.5 g/dL 04/18/2025 6:35 PM CDT [facility] HEMATOCRIT (HCT) 44.3 38.0 - 50.0 % 04/18/2025 6:35 PM CDT [facility] MCV 89.3 82.0 - 96.0 fL 04/18/2025 6:35 PM CDT [facility] MCH 31.7 26.0 - 32.0 pg 04/18/2025 6:35 PM CDT [facility] MCHC 35.4 31.0 - 36.0 g/dL 04/18/2025 6:35 PM CDT [facility] PLATELET COUNT 282 140 - 440 10(3)/mcL 04/18/2025 6:35 PM CDT [facility] RDW 13.2 11.8 - 15.5 % 04/18/2025 6:35 PM CDT [facility] MPV 9.5 8.0 - 12.6 fL 04/18/2025 6:35 PM CDT [facility] NEUTROPHILS 74.3(H) 40.0 - 68.0 % 04/18/2025 6:35 PM CDT [facility] LYMPHOCYTES 13.5(L) 19.0 - 49.0 % 04/18/2025 6:35 PM CDT [facility] MONOCYTES 8.7 3.0 - 13.0 % 04/18/2025 6:35 PM CDT [facility] EOSINOPHILS 2.5 0.0 - 8.0 % 04/18/2025 6:35 PM CDT [facility] BASOPHILS 0.8 0.0 - 1.0 % 04/18/2025 6:35 PM CDT [facility] IMMATURE GRANULOCYTE 0.2 0.0 - 0.4 % 04/18/2025 6:35 PM CDT [facility] Comment:Immature Granulocyte s includes Metamyelocytes, Myelocytes, and Promyelocytes. ABSOLUTE NEUTROPHILS 6.62(H) 1.40 - 5.30 10(3)/mcL 04/18/2025 6:35 PM CDT [facility] ABSOLUTE LYMPHOCYTES 1.20 0.90 - 3.30 10(3)/mcL 04/18/2025 6:35 PM CDT [facility] ABSOLUTE MONOCYTES 0.77 0.10 - 0.90 10(3)/mcL 04/18/2025 6:35 PM CDT [facility] ABSOLUTE EOSINOPHIL 0.22 0.00 - 0.50 10(3)/mcL 04/18/2025 6:35 PM CDT [facility] ABSOLUTE BASOPHILS 0.07 0.00 - 0.10 10(3)/mcL 04/18/2025 6:35 PM CDT [facility] ABSOLUTE IMMATURE GRANULOCYTE 0.02 0.00 - 0.03 10 (3) mcL. 04/18/2025 6:35 PM CDT [facility] NRBC PER 100 WBC 0 04/18/20 6:35 PM CDT [facility] Blood Venous Catheter (IV) / Unknown 04/18/2025 6:15 PM CDT 04/18/2025 6:23 PM CDT us Leo Navarrete DO HEMATOLOGY ORDERABLES Fi nal Result Performing Organization Address City/[facility]/ZIP Co de Phone Number [facility] [address] [place] [phone], [place] [phone] * ETOH Level (04/18/2025 6:15 PM CDT) ETHANOL <10 <10 mg/dL 04/18/2025 6:42 PM CDT [facility] Blood Venous Catheter (IV) / Unknown 04/18/2025 6:15 PM CDT 04/18/2025 6:23 PM CDT Narrative [facility] - 04/18/2025 6:42 PM CDT FOR MEDICAL USE ONLY us Leo Navarrete DO CHEMISTRY ORDERABLES Fin al Result [facility] [address] [place] [phone], [place] [phone] * (ABNORMAL) CMP (04/18/2025 6:15 PM CDT) [facility] SODIUM 144 136 - 145 mmol/L 04/18/2025 6:45 PM CDT [facility] POTASSIUM 3.3(L) 3.5 - 5.1 mmol/L 04/18/2025 6:45 PM CDT [facility] CHLORIDE 107 98 - 107 mmol/L 04/18/2025 6:45 PM CDT [facility] CO2, VENOUS 26 22 - 30 mmol/L 04/18/2025 6:45 PM CDT [facility] ANION GAP 11.0 <18.0 mmol/L 04/18/2025 6:45 PM T [facility] GLUCOSE 122(H) 70 - 99 mg/dL 04/18/2025 6:45 PM CDT [facility] BUN 18 8 - 26 mg/dL 04/18/2025 6:45 PM CDT [facility] CREATININE, BLOOD 1.18 0.70 - 1.30 mg/dL 04/18/2025 6:45 PM T [facility] BUN/CREATININE RATIO 15 12 - 20 ratio 04/18/2025 6:45 PM CDT [facility] TOTAL PROTEIN 7.2 6.0 - 8.0 g/dL 04/18/2025 6:45 PM T [facility] ALBUMIN 4.6 3.5 - 5.0 g/dL 04/18/2025 6:45 PM T [facility] A/G RATIO 1.8 1.0 - 2.2 04/18/2025 6:45 PM CDT [facility] CALCIUM 9.5 8.7 - 10.5 mg/dL 04/18/2025 6:45 PM CDT [facility] T BILI 0.5 0.2 - 1.2 mg/dL 04/18/2025 6:45 PM CDT [facility] SGOT (AST) 24 <43 U/L 04/18/2025 6:45 PM CDT [facility] SGPT (ALT) 13 <56 U/L 04/18/2025 6:45 PM CDT [facility] ALKALINE PHOSPHATASE 81 40 - 150 U/L 04/18/2025 6:45 PM CDT [facility] GFR, ESTIMATED >60 >=60 04/18/2025 6:45 PM CDT [facility] Comment: Creatinine Clearance is the preferred criteria for selecting drug dose adjustments in renally impaired patients. The GFR is provided as additional pertinent clinical information. GFR is reported in mL/min/1.73 sq m. Calculation based on the Chronic Kidney Disease Epidemiology Collaboration (CKD- EPI) equation refit without adjustment for race. GFR, EST. >60 >=60 025 6:45 PM CDT [facility] GFR, EST. NONAFRICAN >60 >=60 04/18/2025 6:45 PM CDT [facility] Blood Venous Catheter (IV) / Unknown 04/18/2025 6:15 PM CDT 04/18/2025 6:23 PM CDT us Leo Navarrete DO CHEMISTRY ORDERABLES Fin al Result [facility] [address] [place] [phone], * Blood Culture #2 (04/18/2025 6:13 PM CDT) Only the most recent of2 resultswithin the time period is included. CULTURE RESULTS NO GROWTH WITHIN 5 DAYS, FINAL RESULT 04/23/2025 7:00 PM CDT [facility] Culture BLOOD SPECIMEN / Unknown Venous Catheter (IV) / Unknown 04/18/2025 6:13 PM CDT 04/18/2025 6:22 PM CDT us Leo Navarrete DO MICROBIOLOGY - GENERAL O RDERABLES Final Result [facility] [address] [place] [address] from Last 3 Months Insurance MEDICARE C [employer] Care Teams Asphalt Heater Operator Relationship Specialty Start Date End Date Provider, None [place] PCP - General 04/18/25
--- OUTSIDE RECORDS SUMMARY | 2025-07-18 15:52 | XMS_ITS | Encounter Summary ---
Author Organization [facility] Address [address] [place] [address] Care Team Providers Care Babbitt Spinner Name Role Phone Unavailable Primary Care Provider [...] on file Legal Sex Male 5:12 AM BLADE BONER Gender Identity Not on file Sexual Orientation Not on file documented as of this encounter Plan of Treatment Not on file documented as of this encounter Visit Diagnoses Not on filedocumented in this encounter
--- OUTSIDE RECORDS SUMMARY | 2025-07-18 15:52 | XMS_ITS | Clinical Summary ---
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
--- NOTE | 2025-07-18 16:06 | ECG_ITS ---
Test Date: 2025-07-18 16:46:59 Measurements Intervals [place] Rate: 62 P: 70 NV: 179 QRS: -40 QRSD: 97 T: 40 QT: 412 QTc: 420 Interpretive Statements SINUS RHYTHM U waves INFERIOR MYOCARDIAL INFARCTION , PROBABLY OLD [40+ ms Q WAVE AND/OR ST/T ABNORMALITY IN II/aVF] Electronically Signed On 07-18-2025 18:45:35 CODING SPECIALIST by Melita Chappell M.D.
--- NOTE | 2025-07-18 16:10 | ED.URI ---
HPI - URI/Sore Throat General Chief Complaint: Upper Respiratory Infection Stated Complaint: chest congestion, cold symptoms Time Seen by Provider: 07/18/25 15:51 Source: patient and family Mode of arrival: wheelchair Limitations: no limitations History of Present Illness HPI Narrative: This is a 70-year-old male with history of CVA, dementia, seizure disorder, AFib, hyperlipidemia who presents the ED for cough, shortness of breath. states that for the past week, patient has been having gurgling breath sounds cough. She has tried giving him Mucinex for this with minimal relief. They have tried exercises at home and he has been getting tired with this. Denies fevers, chills, chest pain, abdominal pain, nausea, vomiting. Related Data Home Medications ?Medication ?Instructions ?Recorded ?Confirmed ?Last Taken ?Type lacosamide 200 mg tablet 200 mg PO Q12H 06/20/25 07/18/25 Unknown History aspirin 81 mg tablet,delayed 81 mg PO DAILY 07/18/25 07/18/25 Unknown History release (Adult Aspirin Regimen) Allergies Allergy/AdvReac Type Severity Reaction Status Date / Time Penicillins Allergy Unknown Anaphylaxis Verified 06/20/25 13:13 Review of Systems Review of Systems: Gen.: Denies fevers or chills Eyes: Denies eye pain or visual change ENT: Denies congestion Respiratory: As per HPI CV: Denies chest pain or palpitations GI: Denies abdominal pain nausea, emesis or diarrhea denies burning, urgency, frequency or hematuria Musculoskeletal: Denies back pain or muscle pain Neuro: Denies numbness, tingling, weakness or focal weakness Skin: Denies rash Except as documented, all other systems reviewed and negative [facility] Past Medical History Medical History Atrial fibrillation Seizure disorder Hyperlipidemia Acute cerebrovascular accident Encounter for screening for cardiovascular disorders Hyperglycemia Hypertension Surgical History Surgical History History of bilateral knee replacement History of orthopedic surgery Right upper extremity reconstruction Family History Family History Mother Family history of diabetes mellitus in first degree relative Sibling Carcinoma of colon Uterine cancer Social History Social History Smoking packs per day: 0.5 Smoking cigarettes per day: 10.0 Years smoked: 15 Smoking pack-years: 7.50 Smoking status: Former smoker Second hand tobacco smoke exposure: Yes Alcohol intake: former Substance use: former Substance use type: marijuana Other substance usage details: 3x weekly Do You Feel Safe in your Home?: Yes Lack of Transportation: No Lack of Food: Never True Current Housing: I Have Housing Concerned About Future Housing: No Difficulty Paying Gas/Electric Bills: No Difficulty Paying for Meds: No Currently Unemployed: No Education: Trade/Vocational Certificate Difficulty w/ Childcare or Family Care: No Living arrangements: with family Spiritual care concerns: No Exam Narrative: APPEARANCE: No acute distress, nontoxic, resting in bed EYES: EOMI HEENT: Normocephalic, atraumatic, OMM RESPIRATORY: Coarse breath sounds throughout CARDIOVASCULAR: Regular rate and rhythm without murmurs rubs or gallops. ABDOMINAL: Soft, nontender, nondistended, no rebound or guarding MUSCULOSKELETAl: Moves all extremities. No clubbing, cyanosis or edema. NEURO: Awake and alert. Following commands, speech normal, no focal deficits SKIN:: Warm, dry. No rashes lesions or abrasions PSYCHIATRIC: Normal affect/mood, Course Vital Signs Vital signs: Vital Signs Temperature 98.1 F 07/18/25 15:40 Pulse Rate 57 L 07/18/25 15:40 Respiratory Rate 17 07/18/25 15:40 Blood Pressure 157/83 H 07/18/25 15:40 Pulse Oximetry 96 07/18/25 15:40 Oxygen Delivery Room Air 07/18/25 15:40 Temperature 98.1 F 07/18/25 15:40 Pulse Rate 60 07/18/25 17:51 Respiratory Rate 18 07/18/25 17:51 Blood Pressure 168/87 H 07/18/25 17:51 Pulse Oximetry 97 07/18/25 17:51 Oxygen Delivery Room Air 07/18/25 15:48 MDM - URI/Sore Throat MDM Narrative Medical decision making narrative: 70-year-old male Presenting for cough and shortness of breath. On initial evaluation patient was in no acute distress afebrile, hemodynamic stable. Differentials include but are not limited to: ACS, CHF Exacerbation, COPD exacerbation, PE, PNA, PTX, bronchitis, viral syndrome Notable exam findings: Coarse breath sounds throughout, no respiratory distress. Notable lab findings: CBC and CMP without significant abnormalities. UA showed pyuria but no bacteriuria. COVID/flu/RSV negative. EKG showed no concerning findings. Notable imaging findings: Chest x-ray showed no acute process. Re-evaluation: Patient has breath sounds were better. I suspect that his breath sounds were actually more upper respiratory in nature. Patient has already been on Mucinex which I advised to continue giving Aurea. I also educated her on chest physical therapy. She was advised follow-up with patient's PCP in the next week for re-evaluation. Patient and family are agreeable to this plan. Given strict return precautions. Medical Records Attestation: I reviewed the patient's medical records. Lab Data Attestation: I reviewed the patient's lab results. 07/18/25 16:12 07/18/25 16:12 Labs: Lab Results 07/18/25 07/18/25 07/18/25 Range/Units 16:11 16:12 17:50 WBC 6.2 (4.5-10.0) K/mm3 RBC 4.90 (4.6-6.20) M/mm3 Hgb 14.2 D (14.0-18.0) g/dL Hct 43.1 (42.0-52.0) % MCV 88.0 (80-100) fl MCH 29.0 (26-34) pg MCHC 32.9 (32-36) g/dl RDW 14.2 (11.5-14.5) % Plt Count 337 (150-375) k/mm3 MPV 9.1 (7.4-10.4) fl Immature Gran % (Auto) 0.3 (0-0.5) % Neut % (Auto) 61.8 (45.5-73.1) % Lymph % (Auto) 23.8 (18.3-44.2) % Andrews % (Auto) 9.1 H (2.6-8.5) % Eos % (Auto) 3.7 (0-4.4) % Baso % (Auto) 1.3 H (0.2-1.2) % Lymph # (Auto) 1.47 (0.9-3.2) K/mm3 Andrews # (Auto) 0.6 (0.1-0.6) K/mm3 Eos # (Auto) 0.2 (0-0.3) K/mm3 Baso # (Auto) 0.1 (0.0-0.1) K/mm3 Abs Immat Gran (auto) 0.02 (0.00-0.031) K/mm3 Absolute Neuts (auto) 3.8 (1.3-6.7) K/mm3 Absolute Nucleated RBC 0.000 (0.0-0.012) K/mm3 Nucleated RBC % 0.0 (0.0-0.2) % Sodium 137 (137-145) mmol/L Potassium 3.5 (3.4-5.0) mmol/L Chloride 102 (98-107) mmol/L Carbon Dioxide 28 (22-30) mmol/L Anion Gap 7 (4-12) mmol/L BUN 13 (9-20) mg/dL Creatinine 0.82 (0.7-1.3) mg/dL Estim Creat Clear Calc 65 ml/min Estimated GFR > 60 (59 - ) Glucose 113 H (65-110) mg/dL Calcium 9.2 (8.4-10.2) mg/dL Total Bilirubin 0.5 (0.2-1.3) mg/dL AST 30 (17-59) U/L ALT 21 (6-50) U/L Alkaline Phosphatase 103 (38-126) U/L Total Protein 7.1 (6.3-8.2) g/dL Albumin 4.1 (3.5-5.1) g/dL Urine Color Yellow (Yellow) Urine Appearance Clear (Clear) Urine pH 5.0 (5.0-9.0) Ur Specific Parker 1.023 (1.001-1.035) Urine Protein Negative (Negative) mg/dL Urine Glucose (UA) Negative (Negative) mg/dL Urine Ketones Negative (Negative) mg/dL Ur Blood (Man) Trace (Negative) Urine Nitrate Negative (Negative) Urine Bilirubin Negative (Negative) Urine Urobilinogen 0.2 (<2.0) mg/dL Leukocyte Esterase Rfl 2+ H (Negative) REGLA/UL Urine RBC 3-5 H (0-2) /hpf Urine WBC 21-50 H (0-3) /hpf Ur Squamous Epith Cells None seen (Few) /hpf Calcium Oxalate Crystal Present (None) /hpf Urine Bacteria None seen /hpf Urine Casts 0-2 Influenza A (RT-PCR) Negative (Negative) Influenza B (RT-PCR) Negative (Negative) RSV (RT-PCR) Negative (Negative) SARS-CoV-2 RNA (RT-PCR) Negative (Negative) Imaging Data Attestation: I personally reviewed and interpreted this imaging study as follows: My impression: Chest x-ray: Normal cardiac silhouette, no consolidations, no pleural effusions, no pulmonary vascular congestion Radiologist's impression: Impressions Chest X-Ray 07/18/25 16:18 IMPRESSION: 1: NO ACUTE CARDIOPULMONARY DISEASE. ECG Data EKG #1: Attestation: I personally reviewed and interpreted this ECG as follows: ECG completion date: 07/18/25 ECG completion time: 16:46 Interpretation: Normal sinus rhythm rate of 62, left axis deviation, Q-waves in inferior leads, no acute ST or T-wave changes Discharge Plan Discharge Clinical Impression: Upper respiratory infection, viral, History of cardioembolic cerebrovascular accident (CVA) Patient Disposition: Home Condition: Stable Instructions: Antibiotic Form, Cold Symptoms (ED) Additional Instructions: Continue taking Mucinex. Try chest physical therapy as demonstrated by padding the back to loosen up in a Hep-Lock. Follow up with his PCP in the next week for re-evaluation. Return to the ED for any new or worsening symptoms. Patient Language: Sami Prescriptions: No Action lacosamide 200 mg tablet 200 mg PO Q12H tamsulosin 0.4 mg capsule 0.4 mg PO HS Qty: 90 2RF quetiapine [Seroquel XR] 50 mg tablet extended release 24 hr 100 mg PO EVENING Qty: 180 2RF quetiapine [Seroquel] 25 mg tablet 25 mg PO Q12HR PRN (Reason: agitation) Qty: 180 2RF clopidogrel 75 mg tablet 75 mg PO DAILY Qty: 90 2RF atorvastatin 40 mg tablet 40 mg PO DAILY Qty: 90 2RF lisinopril 20 mg tablet 20 mg PO DAILY Qty: 90 2RF metoprolol succinate 50 mg tablet extended release 24 hr 50 mg PO DAILY Qty: 90 2RF donepezil [Aricept] 10 mg tablet 10 mg PO DAILY Qty: 90 2RF bupropion HCl [Wellbutrin XL] 150 mg tablet extended release 24 hr 150 mg PO DAILY Qty: 90 2RF aspirin [Adult Aspirin Regimen] 81 mg tablet,delayed release (DR/EC) 81 mg PO DAILY acetaminophen [Tylenol Extra Strength] 500 mg tablet 1,000 mg PO Q6H PRN (Reason: pain) Qty: 50 0RF Follow-up/Referrals: Zia Francisco MD [Primary Care Provider, Internal Medicine]
[2025-07-18 16:18] LABS: Hematocrit 43.1 % (42.0-52.0); Hemoglobin 14.2 g/dL (14.0-18.0); Immature Granulocyte Percent A 0.3 % (0-0.5); Lymphocytes Absolute Auto 1.47 K/mm3 (0.9-3.2); Mean Corpuscular HGB Conc 32.9 g/dl (32-36); Mean Corpuscular Hemoglobin 29.0 pg (26-34); Mean Corpuscular Volume 88.0 fl (80-100); Nucleated Red Blood Cells Absolute Auto 0.000 K/mm3 (0.0-0.012); Nucleated Red Blood Cells Perc 0.0 % (0.0-0.2); Platelet Count Result 337 k/mm3 (150-375); Red Blood Count 4.90 M/mm3 (4.6-6.20); White Blood Count 6.2 K/mm3 (4.5-10.0)
[2025-07-18 16:33] LABS: Alanine Aminotransferase 21 U/L (6-50); Albumin Level 4.1 g/dL (3.5-5.1); Alkaline Phosphatase 103 U/L (38-126); Anion Gap 7 mmol/L (4-12); Aspartate Amino Transferase 30 U/L (17-59); Bilirubin,Total 0.5 mg/dL (0.2-1.3); Blood Urea Nitrogen 13 mg/dL (9-20); Calcium 9.2 mg/dL (8.4-10.2); Carbon Dioxide 28 mmol/L (22-30); Chloride 102 mmol/L (98-107); Estimated CRCL calculation 65 ml/min; Estimated Glomerular Filt Rate > 60; Glucose 113 mg/dL (65-110); Potassium 3.5 mmol/L (3.4-5.0); Sodium 137 mmol/L (137-145); Total Protein 7.1 g/dL (6.3-8.2)
[2025-07-18 16:53] VITALS: BP 171/84; PULSE 59; RESP 20; O2SAT 96
[2025-07-18 16:54] LABS: Influenza A QL RT-PCR Negative (Negative); Influenza B QL RT-PCR Negative (Negative); RSV RNA, RT-PCR Negative (Negative); SARS-CoV-2 RNA PCR Negative (Negative)
[2025-07-18 17:51] VITALS: BP 168/87; PULSE 60; RESP 18; O2SAT 97
[2025-07-18 18:24] LABS: Add Urine Microscopic? YES; Appearance Urine Clear (Clear); Glucose Urine UA Negative (Negative); Leukocyte Esterase Ur 2+ LEU/UL (Negative); Nitrate Urine Negative (Negative); Non Pathogenic Casts 0-2; Specific Grav Ur 1.023 (1.001-1.035)
== END 2025-07-18 19:25 | disposition home or self-care (01) ==
PROVIDERS: Emergency Provider Student in an Organized Health Care Education/Training Program; PCP Emergency Medicine
DX: J06.9 Acute upper respiratory infection, unspecified (principal); B34.9 Viral infection, unspecified; Z86.73 Personal history of transient ischemic attack (TIA), and cerebral infarction without residual deficits; R94.31 Abnormal electrocardiogram [ECG] [EKG]; F03.90 Unspecified dementia, unspecified severity, without behavioral disturbance, psychotic disturbance, mood disturbance, and anxiety; G40.909 Epilepsy, unspecified, not intractable, without status epilepticus; I48.91 Unspecified atrial fibrillation; Z79.82 Long term (current) use of aspirin; E78.5 Hyperlipidemia, unspecified; I10 Essential (primary) hypertension; Z20.822 Contact with and (suspected) exposure to COVID-19; R82.998 Other abnormal findings in urine
CPT/HCPCS: 36415; 71045; 80053; 81001; 85025; 87086; 87637; 93005; 99283

== ENCOUNTER 2025-07-27 14:19 | Outpatient (CLI) | payer MEDICARE, SELFPAY ==
--- OUTSIDE RECORDS SUMMARY | 2010-06-27 18:00 | XMS_ITS | Continuity of Care Document ---
Author Organization [facility] Address [address] [place] [address] [place] [address] Phone Care Team Providers Care Commercial Carpet Installer Name Role Phone Poncho Amin Unavailable Unavailable Procedures Procedure Date Visual Field Examination-Professional Oc Visual Field Examination-Technical Jun- Office/outpatient Visit, Est Office/outpatient Visit, Est Office/outpatient Visit, Est Post-op Follow-up Visit Refraction Post-op Follow-up Visit Remove Cataract, Insert Lens Office/outpatient Visit, Est IOLMaster-Professional Eye Exam & Treatment Refraction Advance Directives Directive Yes / No Effective Date File Name No Information Encounters Encounter Description Practice Location Reason(s) For Visit Diagnoses Date Provider Providers Copied on Encounter [facility] with [facility], [address] [place] [address] [address], [place], [place], [address], [place] tel:[phone] [facility] No Information 201 0 Eloisa Isaac. [address] [facility] [address], [place], [address], [place]. tel:[phone] Referring Provider: [facility]ick [facility] [address], [place], [address]. tel:[phone] Merged with [facility], [address] [place] [address] [address], [place], [place], [address], [place] tel:[phone] [facility] No Information Oct-0 5-201 0 Eloisa Isaac. [address] [facility] , [address], [place], [place], [facility], . tel:[phone] Referring Provider: Poncho Wren, [address] [facility] [address], [place], [facility]. tel:[phone] Office/outpat ient Visit, [facility], [address] [place] [address] [address], [place], [place], [address], [place] tel:[phone] [facility] No Information Aug-2 3-201 0 Eloisa Isaac. [address] [facility] [address], [address], [place], [place], [facility], [place]. tel:[phone] Office/outpat ient Visit, [facility], [address] [place] [address] [address], [place], [place], [address], [place] tel:[phone] [facility] No Information January-2 0-200 9 Eloisa Isaac. [address] [place], [place] [address]ate Wilber Samano, [address], [place], [facility], [place]. tel:[phone] Office/outpat ient Visit, [facility], [address] [place] [address] [address], [place], [place], [address], [place] tel:[phone] [facility] No Information Brett-0 7-200 8 Eloisa Isaac. [address] [facility] [address], [address], [place], [facility], [place]. tel:[phone] [facility], [address] [place] [address] [address], [place], [place], [address], [place] tel:[phone] [facility] No Information Charles-2 3-200 8 Eloisa Isaac. [address] [facility] [address], [address], [place], [facility], [place]. tel:[phone] [facility], [address] [place] [address] [address], [place], [place], [address], tel:[phone] [facility] No Information 8 Eloisa Isaac. [facility] , [address], [place], [facility], . tel:[phone] Merged with [facility], [address] [place] [address] [address], [place], [place], [address], tel:[phone] [facility] No Information 8 Eloisa Isaac. [address] [place], [place] [address]ate Wilber [address]ano, [address], [place], [facility], . tel:[phone] Office/outpat ient Visit, [facility] [address] [place] [address] [address], [place], [place], [address], tel:[phone] [facility] No Information 200 7 Eloisa Isaac. [address] [place], [place] [address]ate Wilber [address]ano, [address], [place], [facility], . tel:[phone] Referring Provider: Poncho Wren, [address] [place], [place] [address]ate [address], [place], [facility]. tel:[phone] M[facility]ed with [facility], [address] [place] [address] [address], [place], [place], [address], tel:[phone] [facility] No Information 0 200 7 Cortez OD Brad. [address] [place], [place] [address]ate Wilber [address]ano, [address], [place], [facility], . tel:[phone] Family History Family Member Type Diagnosis Age At Onset No Information Payers Payer name Insurance type Covered libertarian ID Authoriza tion(s) [place] [id number] Social History Type Description Quantity Date Captured Comments Sex Male Smoking Status No Information Chief Complaint And Reason For Visit No Information Reason For Referral Reason For Referral No Information History Of Present Illness Encounter Date Complaint History Of Prese nt Illness No Information Functional Status Date Functional Assessmen t No Information Instructions Date Instruction Additional Infor mation No Information Assessments Type Assessment Date No Information Patient Care Teams Name Effective Dates (start - stop) Status Members No Information
--- OUTSIDE RECORDS SUMMARY | 2010-06-27 18:00 | XMS_ITS | Continuity of Care Document ---
Author Organization [facility] Address [address] [place] [address] [place] [address] Phone Care Team Providers Care Manager Document Control Name Role Phone Poncho Amin Unavailable Unavailable [...] Diagnoses Date Provider Providers Copied on Encounter [facility], [address] [place] [address] [address], [place], [place], [address], [place] tel:[phone] [facility] No Information 201 0 Eloisa Isaac. [address] [facility], [place], [address], [place]. tel:[phone] Referring Provider: Derick Bush [facility] [address], [place], [address]. tel:[phone] [facility], [address] [place] [address] [address], [place], [place], [address], [place] tel:[phone] [facility] No Information Oct-0 5-201 0 Eloisa Isaac. [address] [facility] , [address], [place], [facility], . tel:[phone] Referring Provider: Poncho Wren, [address] [facility] [address], [place], [facility]. tel:[phone] Office/outpat ient Visit, [facility], [address] [place] [address] [address], [place], [place], [address], [place] tel:[phone] [facility] No Information Aug-2 3-201 0 Eloisa Isaac. [address] [facility] [address], [address], [place], [facility], [place]. tel:[phone] Office/outpat ient Visit, [facility], [address] [place] [address] [address], [place], [place], [address], [place] tel:[phone] [facility] No Information January-2 0-200 9 Eloisa Isaac. [address] [place], [place] [address]ate Wilber Samano, [address], [place], [facility], [place]. tel:[phone] Office/outpat ient Visit, [facility], [address] [place] [address] [address], [place], [place], [address], [place] tel:[phone] [facility] No Information Brett-0 7-200 8 Eloisa Isaac. [address] [facility] [address], [address], [place], [facility], [place]. tel:[phone] [facility], [address] [place] [address] [address], [place], [place], [address], [place] tel:[phone] [facility] No Information Charles-2 3-200 8 Eloisa Isaac. [address] [facility] [address], [address], [place], [facility], [place]. tel:[phone] [facility], [address] [place] [address] [address], [place], [place], [address], tel:[phone] [facility] No Information 8 Eloisa Isaac. [facility] , [address], [place], [facility], . tel:[phone] [facility], [address] [place] [address] [address], [place], [place], [address], tel:[phone] [facility] No Information 8 Eloisa Isaac. [address] [place], [place] [address]ate Wilber [address]ano, [address], [place], [facility], . tel:[phone] Office/outpat ient Visit, [facility], [address] [place] [address] [address], [place], [place], [address], tel:[phone] [facility] No Information 200 7 Eloisa Isaac. [address] [place], [place] [address]ate Wilber [address]ano, [address], [place], [facility], . tel:[phone] Referring Provider: Poncho Wren, [address] [place], [place] [address]ate [address], [place], [facility]. tel:[phone] [facility], [address] [place] [address] [address], [place], [place], [address], tel:[phone] [facility] No Information 0 200 7 Cortez OD Brad. [address] [place], [place] [address]ate Wil[address]ano, [address], [place], [facility], . tel:[phone] Family History Family Member Type Diagnosis Age At Onset No Information Payers Payer name Insurance type Covered constitution party ID Authoriza tion(s) [place] [id number] Social History Type Description Quantity Date Captured [...]
--- NOTE | ~2025-07-27 | XR_ITS ---
EXAM/PROCEDURE: XR barium swallow modified HISTORY: R13.10 - Dysphagia, unspecified COMPARISON: None available. TECHNIQUE: Standard technique for modified barium swallow performed. Fluoroscopy time: 2 minutes Number of images: 1 DAP: 0.65 Julio per square centimeter FINDINGS: No aspiration observed. IMPRESSION: No aspiration observed. See also speech therapist notes for complete evaluation. Reviewed, dictated and finalized at location A. WAY TRACK WORKER IMPRESSION: No aspiration observed. See also speech therapist notes for complet e evaluation.
--- NOTE | 2025-07-27 14:39 | REHSTMBS ---
Assessment and note entered by Raegan Dudley, MATERIALS MANAGEMENT MANAGER Modified Barium Swallow Evaluation Feeding Type Recommended Oral Food Consistency Regular, Level 7 Liquid Consistency Thin (0) Treatment Recommendations Effortful Swallow,Tongue Base Exercise ST Clinical Summary The patient is a 70 year old male referred for a MBS secondary to recent changes in swallow function with noted coughing with thin liquids by family and increased wet vocal quality. The patient was positioned in a lateral view and presented the following consistencies: 5cc/tsp thin liquid barium, cup trials thin liquid barium, pudding mixed with barium paste, and cracker coated with barium paste. Oral Stage: Oral preparation and transit was viewed to be timely for all consistencies. Pharyngeal Stage: When presented all the above consistencies swallow initiation was completed in a timely manner without viewed aspiration or penetration. Moderate residual was viewed to remain in the valleculae following cup trials of thin liquid due to reduced tongue base retraction and mild residual in the pyriform sinus secondary to reduced cricopharyngeal dysfunction. The patient was unable to follow directives for a repeat swallow to clear residual. However with alternated bites and drinks the patient was able to clear the majority of the residual in the vallecula and all residual in the pyriform sinus reducing aspiration risk. Recommend: 1. Regular Diet / Level 7 2. Thin liquid / Level 0 3. Small bites and drinks 4. Alternate bites and drinks 5. No Straw 6. Speech services for dysphagia. Thank you for the consult.
--- OUTSIDE RECORDS SUMMARY | 2025-07-27 14:49 | XMS_ITS | Clinical Summary ---
Author Organization [facility] Address [address] [place] [address] Phone Care Team Providers Care Adobe Maker Name Role Phone Provider, None Primary Care Provider Unavailabl e Allergies Active Allergy Reactions Criticality Noted Date Comments Penicillins Other (see Comments) 04/18/2025 Social History Tobacco Use Types Packs/Day Years [...] 09/15/2024 Influenza Immunization (#1) 2025 SARS-COV-2 Immunization (2024- season) 2025 Respiratory Syncytial Virus (RSV) Immunization [...] on patient's age to complete this topic Insurance MEDICARE C AETNA Care Teams Adobe Maker Relationship Specialty Start Date End Date Provider, None [place] PCP - General 04/18/25
--- OUTSIDE RECORDS SUMMARY | 2025-07-27 14:49 | XMS_ITS | Clinical Summary ---
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
--- OUTSIDE RECORDS SUMMARY | 2025-07-27 14:49 | XMS_ITS | Encounter Summary ---
Author Organization [facility] Address 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
--- OUTSIDE RECORDS SUMMARY | 2025-07-27 14:49 | XMS_ITS | Clinical Summary ---
Author Organization [facility] Address [address] [place] [address] Care Team Providers Care Family Nurse Practitioner Name Role Phone Giancarlo Delacruz MD Primary Care Provider [phone] Allergies Active Allergy Reactions Criticality Noted Date [...] Care Team Description 06/14/2025 2:00 PM CDT [facility] [address] [place] [address] Giancarlo Delacruz MD [facility] Discharge (D/c 06/15 /Pt is being seen @ [facility] ) 06/08/2025 9:15 AM CDT - 06/08/2025 11:59 PM CDT Hospital Encounter [facility] [address] [place], [place] [id number] Crystal Faith LINOLEUM LAYER HELPER Discharge Disposition: Home or Self Care (Routine Discharge) 06/08/2025 Orders Only [facility] [address] [place], [place] [id number] Crystal Faith LINOLEUM LAYER HELPER 05/31/2025 5:20 PM CDT [facility] [id number] [place] [phone] Giancarlo Delacruz MD Chcf ([facility]) 05/29/2025 Scan HEALTH INFO SRVCS Scanned, [...] Annual Medicare Wellness Visit 2019 PHQ-2 (Physician [place]) 09/15/2024 COVID-19 Vaccine ( - season) 2025 [...] Routine 06/08/2025 7:53 AM CDT Other seizures ([facility]) from Last 3 Months Results * LACOSAMIDE, LC/MS/MS (06/08/2025 7:53 AM CDT) LACOSAMIDE 8.5 mcg/mL 06/14/2025 11:37 PM CDT [employer] [place] Comment: (Note) Expected concentrations of Lacosamide in patients receiving recommended daily dosages: Up to 15.0 mcg/mL.Toxic range not established. This test was developed and its analytical performance characteristics have been determined by [employer]. It has not been cleared or approved by the FDA. This assay has been validated pursuant to the CLIA regulations and is used for clinical purposes. [facility] med fusion [address] [address],[address] [facility] [address] Ana Garcia MD, PhD Test performed by [employer] [address] [facility] [address] [place] [address] Chief Development Officer: Ana Garcia MD, PhD Test Reported by [facility], [employer] [facility], [address] [place], [place] Christiano Grceo M.D., Ph.D., Director of Laboratories , [facility] [id number] 06/08/2025 7:53 AM CDT Crystal Faith LINOLEUM LAYER HELPER LABORATORY Final Resu lt [employer] [id number] [place] [address], from Last 3 Months Insurance TNA MEDICARE Care Teams Family Nurse Practitioner Relationship Specialty Start [place] [address] [place] [address] PCP - General FAMILY PRACTICE 05/31/25
--- OUTSIDE RECORDS SUMMARY | 2025-07-27 14:49 | XMS_ITS | Encounter Summary ---
Author Organization [facility] Address 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
--- OUTSIDE RECORDS SUMMARY | 2025-07-27 14:49 | XMS_ITS | Encounter Summary ---
Author Organization [facility] Address 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 Gender Identity Not on file Sexual [...] CDT) HEMATOCRIT 28.8(L) 40.0 - 48.0 % [facility] HEMOGLOBIN 9.3(L) 13.6 - 16.5 g/dL [facility] Blood specimen (specimen) 01/10/2008 5:54 AM CDT 01/10/2008 7:00 AM CDT us Govind Sotelo MD HEMATOLOGY ORDERABLES Final Result [facility] [address] [place] [address] * HEMOGLOBIN AND HEMATOCRIT (12/25/2007 10:57 AM CDT) HEMATOCRIT 46.3 40.0 - 48.0 % [facility] HEMOGLOBIN 15.6 13.6 - 16.5 g/dL [facility] Blood specimen (specimen) 12/25/2007 10:57 AM CDT 12/25/2007 11:58 AM CDT Govind Sotelo MD HEMATOLOGY ORDERABLES Final Result [facility] [address] [place] [address] * (ABNORMAL) BASIC METABOLIC PANEL (12/25/2007 10:57 AM CDT) Pathologist [facility] CHLORIDE 100 96 - 108 mmol/L [facility] GLUCOSE 124(H) 65 - 99 mg/dL [facility] SODIUM 140 135 - 145 mmol/L [facility] CALCIUM 9.6 8.4 - 10.2 mg/dL [facility] CO2 28 22 - 30 mmol/L [facility] CREATININE 0.86 0.67 - 1.17 mg/dL [facility] POTASSIUM 3.9 3.5 - 4.9 mmol/L [facility] BUN 10 6 - 20 mg/dL [facility] GFR, >60 >=60 mL/min/1. 7 sq meter [facility] GFR >60 >=60 mL/min/1. 7 sq meter [facility] Comment: Estimated GFR rate interpretative information for both Americans and non- Americans is available on the [facility] Intranet at: [email or web address] Select: Lab Policies and Procedures Select: Reference Ranges - GFR Blood specimen (specimen) 12/25/2007 10:57 AM CDT 12/25/2007 11:58 AM CDT us Govind Sotelo MD CHEMISTRY ORDERABLES Edited [facility] [address] [place] [address] documented in this encounter Visit Diagnoses Diagnosis Osteoarthrosis, unspecified whether generalized or localized, lower leg documented in this encounter
--- OUTSIDE RECORDS SUMMARY | 2025-07-27 14:49 | XMS_ITS | Encounter Summary ---
Author Organization [facility] Address 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 Gender Identity Not on file Sexual Orientation Not on file documented as of this encounter Plan of Treatment Not on file documented as of this encounter Procedures Procedure Name Priority Date/Time Associated Diagnosis Comments URINALYSIS WITH REFLEX CULTURE Routine 10/11/2007 8:25 AM NATIONAL FLATBED TRUCK DRIVER URINALYSIS W/REFLEX MICROSCOPIC Routine 10/11/2007 8:25 AM NATIONAL FLATBED TRUCK DRIVER HEMOGLOBIN AND HEMATOCRIT Routine 10/11/2007 7:00 AM NATIONAL FLATBED TRUCK DRIVER BASIC METABOLIC PANEL Routine 10/11/2007 7:00 AM NATIONAL FLATBED TRUCK DRIVER HEMOGLOBIN AND HEMATOCRIT Routine 10/10/2007 5:35 AM NATIONAL FLATBED TRUCK DRIVER HEMOGLOBIN AND HEMATOCRIT Routine 09/30/2007 9:16 AM NATIONAL FLATBED TRUCK DRIVER documented in this encounter Results * (ABNORMAL) URINALYSIS (10/11/2007 8:25 AM NATIONAL FLATBED TRUCK DRIVER) COLOR UA Pale Yellow INTERFAC E [...] 3 /HPF INTERFACE SYSTEM 10/11/2007 8:25 AM NATIONAL FLATBED TRUCK DRIVER us Mia Espinal MD URINE ORDERABLES Edited Performing Organization Address [facility] Phone Number INTERFACE SYSTEM Refer to clinic/hospital department * URINALYSIS WITH REFLEX CULTURE (10/11/2007 8:25 AM NATIONAL FLATBED TRUCK DRIVER) URINE CULTURE ORDER Culture ordered INTERFACE SYSTEM Comment: Criteria for a reflex culture include one or more of the following: Abn ormal nitrite, leukocyte esterase, WBCs or RBCs. Lack of qualifying criteria does not exclude the possiblity of a urinary tract infection. Dilute urine, drug interference, etc. may decrease the sensitivity of the criteria analytes. 10/11/2007 8:25 AM NATIONAL FLATBED TRUCK DRIVER us Mia Espinal MD URINE ORDERABLES Edited Performing Organization Address [facility] Phone Number INTERFACE SYSTEM Refer to clinic/hospital department * (ABNORMAL) BASIC METABOLIC PANEL (10/11/2007 7:00 AM NATIONAL FLATBED TRUCK DRIVER) GLUCOSE 120(H) 65 - 99 mg/dL [...] and non- Americans is available on the [facility] Intranet at: [email or web address] Select: Lab Policies and Procedures Select: Reference Ranges - GFR 10/11/2007 7:00 AM NATIONAL FLATBED TRUCK DRIVER us Mia Espinal MD CHEMISTRY ORDERABLES Edited Performing Organization Address [facility] Phone Number INTERFACE SYSTEM Refer to clinic/hospital department * (ABNORMAL) HEMOGLOBIN AND HEMATOCRIT (10/11/2007 7:00 AM NATIONAL FLATBED TRUCK DRIVER) HEMOGLOBIN 8.9(L) 13.6 - 16.5 g/dL INTERFACE SYSTEM HEMATOCRIT 26.4(L) 40.0 - 48.0 % INTERFACE SYSTEM 10/11/2007 7:00 AM NATIONAL FLATBED TRUCK DRIVER Result Andria Sotelo MD HEMATOLOGY ORDERABLES Edited Performing Organization Address [facility] Phone Number INTERFACE SYSTEM Refer to clinic/hospital department * (ABNORMAL) HEMOGLOBIN AND HEMATOCRIT (10/10/2007 5:35 AM NATIONAL FLATBED TRUCK DRIVER) HEMOGLOBIN 9.0(L) 13.6 - 16.5 g/dL INTERFACE SYSTEM HEMATOCRIT 27.3(L) 40.0 - 48.0 % INTERFACE SYSTEM 10/10/2007 5:35 AM NATIONAL FLATBED TRUCK DRIVER Result Andria Sotelo MD HEMATOLOGY ORDERABLES Edited Performing Organization Address [facility] de Phone Number INTERFACE SYSTEM Refer to clinic/hospital department * HEMOGLOBIN AND HEMATOCRIT (09/30/2007 9:16 AM NATIONAL FLATBED TRUCK DRIVER) HEMOGLOBIN 14.3 13.6 - 16.5 g/dL INTERFACE SYSTEM HEMATOCRIT 41.4 40.0 - 48.0 % INTERFACE SYSTEM 09/30/2007 9:16 AM NATIONAL FLATBED TRUCK DRIVER Result Andria Sotelo MD HEMATOLOGY ORDERABLES Edited Performing Organization Address [facility]/ZIP Co de Phone Number INTERFACE SYSTEM Refer to clinic/hospital department documented in this encounter Visit Diagnoses Diagnosis Osteoarthrosis, unspecified whether generalized or localized, lower leg documented in this encounter
[2025-07-27 15:08] LABS: Alanine Aminotransferase 16 U/L (6-50); Albumin Level 4.1 g/dL (3.5-5.1); Alkaline Phosphatase 127 U/L (38-126); Anion Gap 8 mmol/L (4-12); Aspartate Amino Transferase 27 U/L (17-59); Bilirubin,Total 0.5 mg/dL (0.2-1.3); Blood Urea Nitrogen 15 mg/dL (9-20); Calcium 9.2 mg/dL (8.4-10.2); Carbon Dioxide 27 mmol/L (22-30); Chloride 102 mmol/L (98-107); Cholesterol 122 mg/dL (0-200); Estimated Glomerular Filt Rate > 60; Glucose 139 mg/dL (65-110); HDL Direct 53 mg/dL; Potassium 3.6 mmol/L (3.4-5.0); Sodium 137 mmol/L (137-145); Total Protein 7.3 g/dL (6.3-8.2); Triglycerides 88 mg/dL (<150)
--- OUTSIDE RECORDS SUMMARY | 2025-07-27 15:14 | XMS_ITS | Clinical Summary ---
Author Organization [facility] Address [address] [place] [address] Care Team Providers Care Global Cto Name Role Phone Giancarlo Delacruz MD Primary Care Provider [phone] Allergies Active Allergy Reactions Criticality Noted Date [...] Care Team Description 06/14/2025 2:00 PM CDT Jail [facility] Internal [facility] [address] [place] [address] Giancarlo Delacruz MD Jail Discharge (D/c 06/15 /Pt is being seen @ [facility] ) 06/08/2025 9:15 AM CDT - 06/08/2025 11:59 PM CDT Hospital Encounter [facility] [address] [place], [place] [id number] Crystal Faith GLAZIER STRUCTURAL GLASS Discharge Disposition: Home or Self Care (Routine Discharge) 06/08/2025 Orders Only [facility] [address] [place], [place] [id number] Crystal Faith GLAZIER STRUCTURAL GLASS 05/31/2025 5:20 PM CDT Jail [facility] [address] [place] [phone] Giancarlo Delacruz MD Jail ([facility]) 05/29/2025 Scan HEALTH INFO SRVCS Scanned, Doc [...] Annual Medicare Wellness Visit 2019 PHQ-2 (Physician [place]) 09/15/2024 COVID-19 Vaccine ( - season) 2025 [...] AM CDT Other seizures ([facility]) from Last 3 Months Results * LACOSAMIDE, LC/MS/MS (06/08/2025 7:53 AM CDT) LACOSAMIDE 8.5 mcg/mL 06/14/2025 11:37 PM CDT [employer] [place] Comment: (Note) Expected concentrations of Lacosamide in patients receiving recommended daily dosages: Up to 15.0 mcg/mL.Toxic range not established. This test was developed and its analytical performance characteristics have been determined by [employer]. It has not been cleared or approved by the FDA. This assay has been validated pursuant to the CLIA regulations and is used for clinical purposes. [facility] med fusion [address] [address],[address] [facility] [address] Ana Garcia MD, PhD Test performed by [employer] [address] [facility] [address] [place] [address] Dental Officer: Ana Garcia MD, PhD Test Reported by [facility], [facility], [address] [place], [place] Christiano Greco M.D., Ph.D., Director of Laboratories , [facility] [id number] 06/08/2025 7:53 AM CDT Crystal Faith GLAZIER STRUCTURAL GLASS LABORATORY Final Resu lt [employer] [id number] [place] [address], from Last 3 Months Insurance TNA MEDICARE Care Teams Global Cto Relationship Specialty Start [place] [address] [place] [address] PCP - General FAMILY PRACTICE 05/31/25
--- OUTSIDE RECORDS SUMMARY | 2025-07-27 15:14 | XMS_ITS | Encounter Summary ---
Author Organization [facility] Address 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 Gender Identity Not on file Sexual Orientation Not on file documented as of this encounter Plan of Treatment Not on file documented as of this encounter Procedures Procedure Name Priority Date/Time Associated Diagnosis Comments URINALYSIS WITH REFLEX CULTURE Routine 10/11/2007 8:25 AM RESIDENTIAL SUBCONTRACTOR URINALYSIS W/REFLEX MICROSCOPIC Routine 10/11/2007 8:25 AM RESIDENTIAL SUBCONTRACTOR HEMOGLOBIN AND HEMATOCRIT Routine 10/11/2007 7:00 AM RESIDENTIAL SUBCONTRACTOR BASIC METABOLIC PANEL Routine 10/11/2007 7:00 AM RESIDENTIAL SUBCONTRACTOR HEMOGLOBIN AND HEMATOCRIT Routine 10/10/2007 5:35 AM RESIDENTIAL SUBCONTRACTOR HEMOGLOBIN AND HEMATOCRIT Routine 09/30/2007 9:16 AM RESIDENTIAL SUBCONTRACTOR documented in this encounter Results * (ABNORMAL) URINALYSIS (10/11/2007 8:25 AM RESIDENTIAL SUBCONTRACTOR) COLOR UA Pale Yellow INTERFAC E SYSTEM [...] 3 /HPF INTERFACE SYSTEM 10/11/2007 8:25 AM RESIDENTIAL SUBCONTRACTOR us Mia Espinal MD URINE ORDERABLES Edited Performing Organization Address [facility] Phone Number INTERFACE SYSTEM Refer to clinic/hospital department * URINALYSIS WITH REFLEX CULTURE (10/11/2007 8:25 AM RESIDENTIAL SUBCONTRACTOR) URINE CULTURE ORDER Culture ordered INTERFACE SYSTEM Comment: Criteria for a reflex culture include one or more of the following: Abn ormal nitrite, leukocyte esterase, WBCs or RBCs. Lack of qualifying criteria does not exclude the possiblity of a urinary tract infection. Dilute urine, drug interference, etc. may decrease the sensitivity of the criteria analytes. 10/11/2007 8:25 AM RESIDENTIAL SUBCONTRACTOR us Mia Espinal MD URINE ORDERABLES Edited Performing Organization Address [facility] Phone Number INTERFACE SYSTEM Refer to clinic/hospital department * (ABNORMAL) BASIC METABOLIC PANEL (10/11/2007 7:00 AM RESIDENTIAL SUBCONTRACTOR) GLUCOSE 120(H) 65 - 99 mg/dL INTERFACE [...] and non- Americans is available on the [facility] Intranet at: [email or web address] Select: Lab Policies and Procedures Select: Reference Ranges - GFR 10/11/2007 7:00 AM RESIDENTIAL SUBCONTRACTOR us Mia Espinal MD CHEMISTRY ORDERABLES Edited Performing Organization Address [facility] Phone Number INTERFACE SYSTEM Refer to clinic/hospital department * (ABNORMAL) HEMOGLOBIN AND HEMATOCRIT (10/11/2007 7:00 AM RESIDENTIAL SUBCONTRACTOR) HEMOGLOBIN 8.9(L) 13.6 - 16.5 g/dL INTERFACE SYSTEM HEMATOCRIT 26.4(L) 40.0 - 48.0 % INTERFACE SYSTEM 10/11/2007 7:00 AM RESIDENTIAL SUBCONTRACTOR Result Andria Sotelo MD HEMATOLOGY ORDERABLES Edited Performing Organization Address [facility] Phone Number INTERFACE SYSTEM Refer to clinic/hospital department * (ABNORMAL) HEMOGLOBIN AND HEMATOCRIT (10/10/2007 5:35 AM RESIDENTIAL SUBCONTRACTOR) HEMOGLOBIN 9.0(L) 13.6 - 16.5 g/dL INTERFACE SYSTEM HEMATOCRIT 27.3(L) 40.0 - 48.0 % INTERFACE SYSTEM 10/10/2007 5:35 AM RESIDENTIAL SUBCONTRACTOR Result Andria Sotelo MD HEMATOLOGY ORDERABLES Edited Performing Organization Address [facility] de Phone Number INTERFACE SYSTEM Refer to clinic/hospital department * HEMOGLOBIN AND HEMATOCRIT (09/30/2007 9:16 AM RESIDENTIAL SUBCONTRACTOR) HEMOGLOBIN 14.3 13.6 - 16.5 g/dL INTERFACE SYSTEM HEMATOCRIT 41.4 40.0 - 48.0 % INTERFACE SYSTEM 09/30/2007 9:16 AM RESIDENTIAL SUBCONTRACTOR Result Andria Sotelo MD HEMATOLOGY ORDERABLES Edited Performing Organization Address [facility]/ZIP Co de Phone Number INTERFACE SYSTEM Refer to clinic/hospital department documented in this encounter Visit Diagnoses Diagnosis Osteoarthrosis, unspecified whether generalized or localized, lower leg documented in this encounter
--- OUTSIDE RECORDS SUMMARY | 2025-07-27 15:14 | XMS_ITS | Clinical Summary ---
Author Organization [facility] Address [address] [place] [address] Phone Care Team Providers Care Mold Maker Plaster Name Role Phone Provider, None Primary Care [...] topic Insurance MEDICARE C AETNA Care Teams Mold Maker Plaster Relationship Specialty Start Date End Date Provider, None [place] PCP - General 04/18/25
--- OUTSIDE RECORDS SUMMARY | 2025-07-27 15:14 | XMS_ITS | Encounter Summary ---
Author Organization [facility] Address 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 Gender Identity Not on file Sexual Orientation [...] CDT) HEMATOCRIT 28.8(L) 40.0 - 48.0 % [facility] HEMOGLOBIN 9.3(L) 13.6 - 16.5 g/dL [facility] Blood specimen (specimen) 01/10/2008 5:54 AM CDT 01/10/2008 7:00 AM CDT us Govind Sotelo MD HEMATOLOGY ORDERABLES Final Result [facility] [address] [place] [address] * HEMOGLOBIN AND HEMATOCRIT (12/25/2007 10:57 AM CDT) HEMATOCRIT 46.3 40.0 - 48.0 % [facility] HEMOGLOBIN 15.6 13.6 - 16.5 g/dL [facility] Blood specimen (specimen) 12/25/2007 10:57 AM CDT 12/25/2007 11:58 AM CDT Govind Sotelo MD HEMATOLOGY ORDERABLES Final Result [facility] [address] [place] [address] * (ABNORMAL) BASIC METABOLIC PANEL (12/25/2007 10:57 AM CDT) Pathologist [facility] CHLORIDE 100 96 - 108 mmol/L [facility] GLUCOSE 124(H) 65 - 99 mg/dL [facility] SODIUM 140 135 - 145 mmol/L [facility] CALCIUM 9.6 8.4 - 10.2 mg/dL [facility] CO2 28 22 - 30 mmol/L [facility] CREATININE 0.86 0.67 - 1.17 mg/dL [facility] POTASSIUM 3.9 3.5 - 4.9 mmol/L [facility] BUN 10 6 - 20 mg/dL [facility] GFR, >60 >=60 mL/min/1. 7 sq meter [facility] GFR >60 >=60 mL/min/1. 7 sq meter [facility] Comment: Estimated GFR rate interpretative information for both Americans and non- Americans is available on the [facility] Intranet at: [email or web address] Select: Lab Policies and Procedures Select: Reference Ranges - GFR Blood specimen (specimen) 12/25/2007 10:57 AM CDT 12/25/2007 11:58 AM CDT us Govind Sotelo MD CHEMISTRY ORDERABLES Edited [facility] [address] [place] [address] documented in this encounter Visit Diagnoses Diagnosis Osteoarthrosis, unspecified whether generalized or localized, lower leg documented in this encounter
--- OUTSIDE RECORDS SUMMARY | 2025-07-27 15:14 | XMS_ITS | Encounter Summary ---
Author Organization [facility] Address 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
--- OUTSIDE RECORDS SUMMARY | 2025-07-27 15:14 | XMS_ITS | Encounter Summary ---
Author Organization [facility] Address [address] [place] [address] Care Team Providers Care Food Counter Worker Name Role Phone Unavailable Primary Care Provider [...] on file Legal Sex Male 5:12 AM BAND NAILER Gender Identity Not on file Sexual Orientation Not on file documented as of this encounter Plan of Treatment Not on file documented as of this encounter Visit Diagnoses Not on filedocumented in this encounter
--- OUTSIDE RECORDS SUMMARY | 2025-07-27 15:14 | XMS_ITS | Clinical Summary ---
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
[2025-07-27 16:42] LABS: Prostate Specific Antigen 5.2 ng/mL (< OR = 4.0)
== END 2025-07-27 14:20 | disposition home or self-care (01) ==
PROVIDERS: PCP Emergency Medicine; Visit Provider Emergency Medicine
DX: Z12.5 Encounter for screening for malignant neoplasm of prostate (principal); R13.10 Dysphagia, unspecified; E78.5 Hyperlipidemia, unspecified; E55.9 Vitamin D deficiency, unspecified
CPT/HCPCS: 36415; 74230; 80053; 80061; 82306; 84153; 92611; G0103

== ENCOUNTER 2025-08-05 14:00 | Outpatient (RCR) | payer MEDICARE, SELFPAY ==
--- NOTE | 2025-07-26 14:03 | STOPEVAL1 ---
Assessment and note entered by Raegan Dudley, UNDRAPED ARTIST MODEL Evaluation Information Assessment Status Evaluation Reported Pain Level Pain Score 0: Self Report Assessment ST Clinical Summary The patient is a 70-year-old male referred for outpatient speech therapy services following his discharge from [facility]. The patient did not receive speech services while at the rehabilitation per family reports. The patient was accompanied by family who reports their greatest concern is his cognition for home safety and memory. She states he is impulsive at home and it adds to his fall risk. They also report recent changes in his swallow function. He was recently seen at [facility] and had a CXR which was negative. However, they have still noted some CSA (clinical signs of aspiration). The patient at rest has a very gurgle/wet vocal quality that improves some when cued to clear and re-swallow. The patient is a recent CVA with AMS in April of 2025 and has weakness of the left upper extremity. The patient was administered the RIPA (Ross Information Processing Assessment) and portions of the [facility] Cognitive Evaluation. Results were as follows for the RIPA subtests given: Immediate Memory (20)66%, Recent memory (23 ) 76%, Temporal Orientation (20) 66%, Problem Solving and Abstract Reasoning (15) 50%, Organization (11) 36%, Auditory Processing and Retention (21) 76% Results for the [facility] Language Evaluation subtests are as follows: Verbal Expression: Sentence Completion 80 %, Sentence formulation 30%, Object function 80%, Divergent Naming 30% Dysphagia Screen: As noted patient had a very wet/ gurgle vocal quality at rest with concerns for aspiration risk. Some increased wet quality with small sips improved with effortful swallow, chin tuck, and small controlled drinks. One delayed cough with a single drink of liquid. Results: Results indicate severe cognitive deficits characterized by deficits for [id number] and delayed), problem solving/ reasoning, auditory processing, thought organization, and attention. Also noted are concerns for dysphagia and aspiration risk. Recommend: Outpatient speech services 1x a week for 10 visits to address above deficits. Also request outpatient MBS to better evaluate swallow function. Plan of Care Interventions Treatment of Language,Treatment of Swallowing Dysfunction,Treatment for Cognitive Function ST Services Indicated Yes Treatment Frequency and 1x a week x 10 visits. Duration These treatments will address the objective and functional deficits as defined above. The patient will be advanced safely and appropriately in order for the patient to progress towards his/her prior level of function. Additional exercises will be introduced and as well as a comprehensive home exercise program upon discharge, if needed, ?to ensure carryover of functional gains achieved in the clinic. This treatment plan has been reviewed and agreement upon by the patient.
--- NOTE | 2025-07-26 14:03 | OPREHPOC ---
Outpatient Therapy Plan of Care This is a Multidisciplinary Plan of Care that may contain components documented by all disciplines (PT, OT, and ST.) ST Problem 1 ST Problem #[address] Goal 1 Goal / Goal Update The patient will participate in home programming to improve carry over/generalization of skills to the home environment Target Visit [address] Problem #[address] Goal 1 Goal / Goal Update Cognition: 1. The patient will answer complex yes and no questions with 85% and minimal cues. 2. The patient will recall 1-2 sentence length information with 75% and minimal cues. 3. The patient will attend to task for 5-7 minutes with minimal redirect. 4. The patient will complete simple problem solving scenarios with 75% and minimal cues. 5. The patient will complete simple thought organization for (sequencing, divergent naming, sentence formulation) 75% and minimal cues. Target Visit 10 ST Goal 1 Goal / Goal Update Dysphagia 1. Complete MBS Study to evaluate swallow function 2. Initiate dysphagia exercises and establish as needed following MBS Target Visit 10
--- NOTE | 2025-07-26 17:32 | OTOPEVAL1 ---
Assessment and note entered by Jody Parekh, OT Evaluation Information Assessment Status Evaluation Diagnosis CVA ICD-10 Condition Codes (OT) Generalized muscle weakness M62.81 Other ICD-10 Condition Codes ( I63.9; I69.354 OT) Onset 04/18/25 Subjective Information Pt. 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 Pt. presents with significant other, who gives majority of the history, as pt. can recall, but frequently gives unreliable history. Both report that pt. spend most of his time in his wheelchair and self propels around their small home which is currently under renovation, but also walks without a walker , which has been limited due to quick and unsteady movement and decreased safety awareness. Pt. has been using commode in his room for toileting due to construction of home, but significant other reports he is mostly SBA with cues due to decreased safety awareness. Pt. reports he fell a couple of weeks ago and yesterday. Significant other reports pt. was at inpatient rehab for 3.5 weeks after initial stroke and is frustrated by how little activity they did with him there. Significant other is concerned about pt. getting back to his typical interests and hobbies, which has resulted in pt. spending a lot of time watching TV. Significant other reports she attempts to keep pt. busy assisting in chores and activities, such as puzzles Reported Pain Level Pain Score 0: Self Report Assessment OT Clinical Summary Pt. is 70 year old M, referred to outpatient occupational therapy services after experiencing cerebral infarction in April 2025, with subsequent hospitalizations for altered mental status, discharged to SNF from which he was discharged home June 15, 2025. Pt. and significant other present for evaluation, and report that pt. is now SBA for all activities and requires frequent cues for procedural and safety awareness. Pt. ambulates without a mobility device in the home, but often sits in a wheelchair due to gait instability and repeated falls. Pt. demonstrates overall deconditioning including significantly below average strength and coordination, L UE > R UE ( dominant side), and difficulty with functional transfers and mobility. Pt. will benefit from skilled OT services to facilitate increased strength, coordination, and static and dynamic balance for functional activities and transfers. Plan of Care Interventions Therapeutic Exercise,Neuro Re-education, Therapeutic Activities,Cognitive Function,Self- Care/Home Management OT Services Indicated Yes Treatment Frequency and 2 x/ wk for 8 visits Duration These treatments will address the objective and functional deficits as defined above. The patient will be advanced safely and appropriately in order for the patient to progress towards his/her prior level of function. Additional exercises will be introduced and as well as a comprehensive home exercise program upon discharge, if needed, ?to ensure carryover of functional gains achieved in the clinic. This treatment plan has been reviewed and agreement upon by the patient.
--- NOTE | 2025-07-26 17:32 | OPREHPOC ---
Outpatient Therapy Plan of Care This is a Multidisciplinary Plan of Care that may contain components documented by all disciplines (PT, OT, and ST.) OT Problem 1 OT Problem #1 Knowledge Deficit OT Goal 1 Goal / Goal Update Pt. will demonstrate independence in HEP Target Visit 8 OT Problem 2 OT Problem #2 Impaired Strength OT Goal 1 Goal / Goal Update Pt. will demonstrate increased R and L UE strength of 15 lbs for improved performance and safety in daily functional activities and transfers Target Visit 16 OT Problem 3 OT Problem #3 Impaired Coordination OT Goal 1 Goal / Goal Update Pt. will demonstrate increased R and L UE coordination and dexterity, as demonstrated by decreasing 9 hole peg test scores to <35 seconds in R UE and < 60 seconds in L UE Target Visit 24 OT Problem 4 OT Problem #4 Impaired Functional Mobility OT Goal 1 Goal / Goal Update Pt. will demonstrate increased safety in functional transfers and mobility for functional activity as demonstrated by TUG score < 15 seconds and completing functional transfers independently without loss of balance Target Visit [address] Problem #[address] Goal 1 Goal / Goal Update The patient will participate in home programming to improve carry over/generalization of skills to the home environment Target Visit [address] Problem #[address] Goal 1 Goal / Goal Update Cognition: 1. The patient will answer complex yes and no questions with 85% and minimal cues. 2. The patient will recall 1-2 sentence length information with 75% and minimal cues. 3. The patient will attend to task for 5-7 minutes with minimal redirect. 4. The patient will complete simple problem solving scenarios with 75% and minimal cues. 5. The patient will complete simple thought organization for (sequencing, divergent naming, sentence formulation) 75% and minimal cues. Target Visit 10 ST Goal 1 Goal / Goal Update Dysphagia 1. Complete MBS Study to evaluate swallow function 2. Initiate dysphagia exercises and establish as needed following MBS Target Visit 10
--- NOTE | 2025-07-28 12:01 | OPREHPOC ---
Outpatient Therapy Plan of Care This is a Multidisciplinary Plan of Care that may contain components documented by all disciplines (PT, OT, and ST.) PT Problem 1 PT Problem #1 Knowledge Deficit PT Goal 1 Goal / Goal Update *independent with HEP, with cues from significant other Target Visit 10 PT Problem 2 PT Problem #2 Impaired Strength PT Goal 1 Goal / Goal Update 1*increase R and L LE strength to 4/5, to improve transfer and gait skills 2* transfer sit/stand with use of 1 UE x 5 reps, independent 3* sitting at edge of mat x 4 minutes with good trunk control Target Visit 10 PT Problem 3 PT Problem #3 Impaired Functional Mobility PT Goal 1 Goal / Goal Update 1* 2 minute walking test distance with wheeled walker, 250', independent on level surface 2* 4 steps with 1 hand railing, modified independent 3* report NO falls 4* report walking short distances in community Target Visit 10 OT Problem 1 OT Problem #1 Knowledge Deficit OT Goal 1 Goal / Goal Update Pt. will demonstrate independence in HEP Target Visit 8 OT Problem 2 OT Problem #2 Impaired Strength OT Goal 1 Goal / Goal Update Pt. will demonstrate increased R and L UE strength of 15 lbs for improved performance and safety in daily functional activities and transfers Target Visit 16 OT Problem 3 OT Problem #3 Impaired Coordination OT Goal 1 Goal / Goal Update Pt. will demonstrate increased R and L UE coordination and dexterity, as demonstrated by decreasing 9 hole peg test scores to <35 seconds in R UE and < 60 seconds in L UE Target Visit 24 OT Problem 4 OT Problem #4 Impaired Functional Mobility OT Goal 1 Goal / Goal Update Pt. will demonstrate increased safety in functional transfers and mobility for functional activity as demonstrated by TUG score < 15 seconds and completing functional transfers independently without loss of balance Target Visit [address] Problem #[address] Goal 1 Goal / Goal Update The patient will participate in home programming to improve carry over/generalization of skills to the home environment Target Visit [address] Problem #[address] Goal 1 Goal / Goal Update Cognition: 1. The patient will answer complex yes and no questions with 85% and minimal cues. 2. The patient will recall 1-2 sentence length information with 75% and minimal cues. 3. The patient will attend to task for 5-7 minutes with minimal redirect. 4. The patient will complete simple problem solving scenarios with 75% and minimal cues. 5. The patient will complete simple thought organization for (sequencing, divergent naming, sentence formulation) 75% and minimal cues. Target Visit 10 ST Goal 1 Goal / Goal Update Dysphagia 1. Complete MBS Study to evaluate swallow function 2. Initiate dysphagia exercises and establish as needed following MBS Target Visit 10
--- NOTE | 2025-07-28 12:01 | PTOPEVAL1 ---
Assessment and note entered by Galilea Purdy, PT Evaluation Information Assessment Status Evaluation ICD-10 Condition Codes (PT) Difficulty Walking R26.2,Abnormalities of gait and mobility R26.9,Weakness R53.1 Other ICD-10 Condition Codes ( cerebral infarct I 63.9 PT) Onset Apr 2025 Subjective Information home from SNF and in pt therapy Jun 15, 2025; home with significant other Chiquita, who assist him- out of bed to chair; due to dementia, he will get up without help, sometimes when she is asleep in early AM; she has chair & door alarms and he over doorways; have fallen about 1x/week since home from rehab; have worked on getting up from the floor and have called for lift assist only 2 times; have a wheeled walker, use for walking outside to mail box, do not use in the home; use w /c also for mobility in home; no stairs; home is under some remodeling and out of the normal situation; did not have any HEP from rehab; prior: home with significant other, hobby of working on cars and being out in his garage; Goal: walking and be able to get to garage, get stronger and not fall anymore Reported Pain Level Pain Score 5: Self Report Pain Score 0: Self Report Pain Score 0: Self Report Additional Pain Score Comments R trunk, rib fractures 5-10/10; education on log rolling and maintain stable trunk with movements Assessment PT Clinical Summary Mansoor is s/p CVA in April with in pt rehab and returned home with his significant other in June. He has had about 1 fall/week. Janet is assisting him with mobility and home chores. He has dementia and R rib fractures due to fall. With the evaluation: 2 minute walking test distance of 180' with wheeled walker; on 4 steps requires bilateral hand rails and minimal assist x1; sit/stand transfer with CGA to moderate assist x1- ability varies and has extension tone; poor sitting position- leans posterior and to the L; weakness and decrease motor control with L LE . Skilled PT services are indicated for therapeutic exercises and activities to increase LE strength, transfer, gait and balance skills, with education to pt and significant other for HEP, safety and mobility skills. Plan of Care Interventions Gait Training,Neuro Re-education,Patient/Caregiver Education,Therapeutic Activities,Therapeutic Exercise PT Services Indicated Yes Treatment Frequency and 2x/wk for 10 visits Duration These treatments will address the objective and functional deficits as defined above. The patient will be advanced safely and appropriately in order for the patient to progress towards his/her prior level of function. Additional exercises will be introduced and as well as a comprehensive home exercise program upon discharge, if needed, ?to ensure carryover of functional gains achieved in the clinic. This treatment plan has been reviewed and agreement upon by the patient.
--- NOTE | 2025-08-08 09:21 | PCPTNOTE ---
pt called and canceled today's appt due to falling and sore, brised from the fall.
--- NOTE | 2025-08-08 10:07 | PCSTNOTE ---
Patient called & cancelled scheduled appointment this date due to sick
--- NOTE | 2025-08-17 12:00 | PCPTNOTE ---
received a call from pt's significant other, Chiqiuta--she reports he has fallen and they canceled appt this past Friday due to the fall. He has had several falls since then, small falls and he is not really hurt from them. She voiced concern about continued falls, harder for him to get out and possible need for home health instead of out pt services. Discussed with her use of the wheel chair or walker for improved safety; he does not like them and will not use. And she will need to contact the dr for starting home health care services. He has an appointment on Fri here and she will think about it and try to make it here Friday.
--- NOTE | 2025-08-22 13:27 | PCPTNOTE ---
Per front office , pts caregiver cancelled all scheduled visits . He is to receive Home therapy. ANTHONYS
--- NOTE | 2025-08-22 16:06 | STOPDC ---
Assessment and note entered by Raegan Dudley, [employer] DIST[employer]OR Evaluation Information Assessment Status Discharge - Pt Not Present Assessment ST Clinical Summary The patient is a 70-year-old male referred for outpatient speech therapy services following his discharge from [facility]. The patient did not receive speech services while at the rehabilitation per family reports. The patient was accompanied by family who reports their greatest concern is his cognition for home safety and memory. She states he is impulsive at home and it adds to his fall risk. They also report recent changes in his swallow function. He was recently seen at [facility] and had a CXR which was negative. However, they have still noted some CSA (clinical signs of aspiration). The patient at rest has a very gurgle/wet vocal quality that improves some when cued to clear and re-swallow. The patient is a recent CVA with AMS in April of 2025 and has weakness of the left upper extremity. The patient was administered the RIPA (Ross Information Processing Assessment) and portions of the [facility] Cognitive Evaluation. Results were as follows for the RIPA subtests given: Immediate Memory (20)66%, Recent memory (23 ) 76%, Temporal Orientation (20) 66%, Problem Solving and Abstract Reasoning (15) 50%, Organization (11) 36%, Auditory Processing and Retention (21) 76% Results for the [facility] Language Evaluation subtests are as follows: Verbal Expression: Sentence Completion 80 %, Sentence formulation 30%, Object function 80%, Divergent Naming 30% Dysphagia Screen: As noted patient had a very wet/ gurgle vocal quality at rest with concerns for aspiration risk. Some increased wet quality with small sips improved with effortful swallow, chin tuck, and small controlled drinks. One delayed cough with a single drink of liquid. Results: Results indicate severe cognitive deficits characterized by deficits for [id number] and delayed), problem solving/ reasoning, auditory processing, thought organization, and attention. Also noted are concerns for dysphagia and aspiration risk. Recommend: Outpatient speech services 1x a week for 10 visits to address above deficits. Also request outpatient MBS to better evaluate swallow function. Updated 08/22/25: Discharge Outpatient Speech services. The patient has met some goals over the course of treatment. MBS completed and swallow precautions and exercises initiated. Improved processing and attention. The patient still demonstrates cognitive deficits. Family called on this date and requested outpatient services be discharged at this time as the patient will be receiving home health. Plan of Care ST Services Indicated Yes
--- NOTE | 2025-08-24 15:57 | OTOPDC ---
Assessment and note entered by Jody Parekh, OT Evaluation Information Assessment Status Discharge - Pt Not Present Diagnosis CVA ICD-10 Condition Codes (OT) Generalized muscle weakness M62.81 Other ICD-10 Condition Codes ( I63.9; I69.354 OT) Onset 04/18/25 Assessment OT Clinical Summary Pt. is 70 year old M, referred to outpatient occupational therapy services after experiencing cerebral infarction in April 2025, with subsequent hospitalizations for altered mental status, discharged to SNF from which he was discharged home June 15, 2025. Pt. to be discharged on this date after attending 3 treatments 07/26/25- 08/05/25, due to decision for pt. by spouse that pt. will be better served by home health in home environment. No additional recommendations at this time. Plan of Care OT Services Indicated No
--- NOTE | 2025-09-05 10:23 | OPREHPOC ---
Outpatient Therapy Plan of Care This is a Multidisciplinary Plan of Care that may contain components documented by all disciplines (PT, OT, and ST.) PT Problem 1 PT Problem #1 Knowledge Deficit PT Goal 1 Goal / Goal Update *independent with HEP, with cues from significant other 09-05-25: d/c goals were not addressed. Target Visit 10 PT Problem 2 PT Problem #2 Impaired Strength PT Goal 1 Goal / Goal Update 1*increase R and L LE strength to 4/5, to improve transfer and gait skills 2* transfer sit/stand with use of 1 UE x 5 reps, independent 3* sitting at edge of mat x 4 minutes with good trunk control 09-05-25: d/c goals were not addressed. Target Visit 10 PT Problem 3 PT Problem #3 Impaired Functional Mobility PT Goal 1 Goal / Goal Update 1* 2 minute walking test distance with wheeled walker, 250', independent on level surface 2* 4 steps with 1 hand railing, modified independent 3* report NO falls 4* report walking short distances in community 09-05-25: d/c goals were not addressed. Target Visit 10 OT Problem 1 OT Problem #1 Knowledge Deficit OT Goal 1 Goal / Goal Update Pt. will demonstrate independence in HEP Target Visit 8 OT Problem 2 OT Problem #2 Impaired Strength OT Goal 1 Goal / Goal Update Pt. will demonstrate increased R and L UE strength of 15 lbs for improved performance and safety in daily functional activities and transfers Target Visit 16 OT Problem 3 OT Problem #3 Impaired Coordination OT Goal 1 Goal / Goal Update Pt. will demonstrate increased R and L UE coordination and dexterity, as demonstrated by decreasing 9 hole peg test scores to <35 seconds in R UE and < 60 seconds in L UE Target Visit 24 OT Problem 4 OT Problem #4 Impaired Functional Mobility OT Goal 1 Goal / Goal Update Pt. will demonstrate increased safety in functional transfers and mobility for functional activity as demonstrated by TUG score < 15 seconds and completing functional transfers independently without loss of balance Target Visit [address] Problem #[address] Goal 1 Goal / Goal Update The patient will participate in home programming to improve carry over/generalization of skills to the home environment Target Visit [address] Problem 2 ST Problem #[address] Goal 1 Goal / Goal Update Cognition: 1. The patient will answer complex yes and no questions with 85% and minimal cues. Update 08/22/25: Met with 85-90% 2. The patient will recall 1-2 sentence length information with 75% and minimal cues. Update 08/22/25: Met inconsistently 70-80% and minimal cues 3. The patient will attend to task for 5-7 minutes with minimal redirect. Update 08/22/25: Not Met 4. The patient will complete simple problem solving scenarios with 75% and minimal cues. Update 08/22/25: Not Met 5. The patient will complete simple thought organization for (sequencing, divergent naming, sentence formulation) 75% and minimal cues. Update 08/22/25: Met inconsistently 70-80% Target Visit [address] Goal 1 Goal / Goal Update Dysphagia 1. Complete MBS Study to evaluate swallow function Update 08/22/25: Met MBS completed and precautions recommended. 2. Initiate dysphagia exercises and establish as needed following MBS Update 08/22/25: Met Exercises initiated. Target Visit 10 Progress Met
--- NOTE | 2025-09-05 10:23 | PTOPDC ---
Assessment and note entered by Galilea Purdy, PT Assessment Status Discharge - Pt Not Present ICD-10 Condition Codes (PT) Difficulty Walking R26.2,Abnormalities of gait and mobility R26.9,Weakness R53.1 Other ICD-10 Condition Codes ( cerebral infarct I 63.9 PT) Onset Apr 2025 Subjective Information pt's significant other called and canceled his PT, stated he is going to get home health services. Assessment PT Clinical Summary Giancarlo has received 2 PT sessions and call/ canceled 2 appointments, due to fall and problems with getting out of the house and to PT. Pt's significant other called and canceled his PT, stated he is going to get home health services. Discharge PT. The goals were not addressed. Plan of Care PT Services Indicated No
== END 2025-09-06 16:23 | disposition home or self-care (01) ==
LOC: ANHOT 14:00
PROVIDERS: PCP Emergency Medicine; Visit Provider Emergency Medicine
DX: R13.10 Dysphagia, unspecified (principal); R47.9 Unspecified speech disturbances; G40.909 Epilepsy, unspecified, not intractable, without status epilepticus; I63.9 Cerebral infarction, unspecified; Z86.73 Personal history of transient ischemic attack (TIA), and cerebral infarction without residual deficits
CPT/HCPCS: 92507; 92523; 97110; 97112; 97161; 97165; 97530